=== PATIENT | female | born 1995 | race Caucasian/White ===

== ENCOUNTER 2017-05-28 10:00 | Outpatient (RCR) | payer MEDICAID, SELFPAY ==
--- NOTE | 2017-06-02 15:13 | COCO.CNN ---
Primary Reason for Visit Housing (Looking for housing for her and her baby due in June) Referral to Care Coordination Referral to Care Coordination: Yes Type: Mental Health ([facility]) Referral to Services: Yes Where and Who: Edward Gonzales - JFI Program at [facility] [employer] - Referral From Referral From: Kenna (Haylee) Care Plan - Plan of Care Assessment/Background: Hasmukh came in today for support with one of her cousins. She is and due in June. She was referred here by Haylee at [facility], where she went for help with daycare assistance. She does not want to discuss the father of the baby, as he is not in the picture. 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 She was working at [employer] and was let go in what sounds like an unsettling situation. She has been out of work since January and living off of her savings. She is living with her mom on the [facility]. It is a small living space and her mom's boyfriend and his son will soon be moving in and there will not be enough room for everyone. Right now Hasmukh has [facility], WIC,and [employer]. She has a dog that she considers a therapy dog. Hasmukh went on to tell me that she had a therapist in the past at [facility]. She is not currently taking any medication for mental health, as she did not want to during . She would like to get reconnected but is concerned about a past due bill. She also mentions a history of migraines. Hasmukh would like to find a place of her own and she does want to find a job, but is finding it difficult with her due date less than 2 months away, and possibly sooner. We talked about the JFI program, which she was willing to be referred for. At this point she is eligible for Reach Up because she isn't close enough to her due date and she isn't able to or willing to provide the information on the father of the baby. We also talked about getting her reconnected with mental health. Plan of Care: Follow up appointment with me 05/28/17. [facility] Self Management Plan Complete?: Yes Self Management Goals: Hasmukh is willing to meet with Edward to go over the JFI program. She will also follow through with Mental Health if we can assure her that her overdue bill will not prevent her from getting the care she needs. Action Plan/Progress: I will send the referral for [employer] and I will talk to Human Services to see if we can get her an appointment.
--- NOTE | 2017-06-02 15:42 | PDOC.CNN_ITS ---
Primary Reason for Visit Housing (Looking for housing for her and her baby due in June) Referral to Care Coordination Referral to Care Coordination: Yes Type: Mental Health ([facility]) Referral to Services: Yes Where and Who: Edward Gonzales - JFI Program at [employer] - Referral From Referral From: Kenna (Haylee) Care Plan - Plan of Care Assessment/Background: Hasmukh came in today for support with one of her cousins. She is and due in June. She was referred here by Haylee at [facility], where she went for help with daycare assistance. She does not want to discuss the father of the baby, as he is not in the picture. 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 She was working at [employer] and was let go in what sounds like an unsettling situation. She has been out of work since January and living off of her savings. She is living with her mom on the [facility]. It is a small living space and her mom' s boyfriend and his son will soon be moving in and there will not be enough room for everyone. Right now Hasmukh has [facility], WIC, and 3 [employer]. She has a dog that she considers a therapy dog. Hasmukh went on to tell me that she had a therapist in the past at [facility]. She is not currently taking any medication for mental health, as she did not want to during . She would like to get reconnected but is concerned about a past due bill. She also mentions a history of migraines. Hasmukh would like to find a place of her own and she does want to find a job, but is finding it difficult with her due date less than 2 months away, and possibly sooner. We talked about the JFI program, which she was willing to be referred for. At this point she is eligible for Reach Up because she isn't close enough to her due date and she isn't able to or willing to provide the information on the father of the baby. We also talked about getting her reconnected with mental health. Plan of Care: Follow up appointment with me 05/28/17. [facility] Self Management Plan Complete?: Yes Self Management Goals: Hasmukh is willing to meet with Edward to go over the JFI program. She will also follow through with Mental Health if we can assure her that her overdue bill will not prevent her from getting the care she needs. Action Plan/Progress: I will send the referral for [employer] and I will talk to Human Services to see if we can get her an appointment.
--- NOTE | 2017-06-02 15:59 | PDOC.CNN_ITS ---
Primary Reason for Visit Housing (Follow up on applications, JFI, Mental Health) Referral to Care Coordination Referral to Care Coordination: No Referral to Services: Yes Where and Who: Left a message for [facility] to see if there are any programs to help Hasmukh. - Referral From Referral From: Self Care Plan - Plan of Care Assessment/Background: Hasmukh came back in today to follow up with me. She completed 3 housing applications but did not have her social security card and they are needed for the processing of these applications. We went online and printed the form for her to fill out and bring to the social security office if she can't find it at home. She agreed to let me call Youth [facility] to see if they have any programs. I had to leave a message. I have the referral to send to Edward. I had waited to send it until Edward was able to confirm the JFI program is still accepting applicants. I sent that along to her today. While Hasmukh was here we did an Eco Map so I could see who her supports are. She identified that she was more social when she was younger and as she has gotten older she finds she keeps more to herself. She continues to want to find her own place. She is currently living off savings and will soon have her tax refund , which she hopes to use to move in somewhere. Plan of Care: I will call Hasmukh next week to follow up. [facility] Self Management Plan Complete?: Yes At this Visit: [employer] Self Management Goals: Hasmukh will try to obtain her social security card so we can submit her housing applications. She will follow up with Mental Health once she hears from me. We will follow up next week. Action Plan/Progress: I called [facility] and spoke with Arlen. She gave me her number, I texted it to Hasmukh, Hasmukh called her and she is scheduled for an intake on 06/09/17 with Ruthy Walter. Arlen said she needs to sign a release so they can get her records. I texted her to let her know. I will hold her housing applications here and she will follow up with me when she has her social security cards. I will also follow up with her when I hear from youth services.
== END 2017-11-27 10:00 ==
LOC: COCO 10:00
PROVIDERS: PCP Nurse Practitioner Family; Visit Provider Nurse Practitioner Family
DX: R69 Illness, unspecified (principal)

== ENCOUNTER 2018-01-03 00:52 | Emergency (ER) | payer MEDICAID, SELFPAY ==
[2018-01-03 00:57] VITALS: BP 135/89; PULSE 98; RESP 18; TEMP 36.9; O2SAT 95
[2018-01-03 01:35] LABS: Bilirubin Negative (Negative); Blood Trace-intact (Negative); Clarity Clear; Glucose Negative (Negative); Ketones Negative (Negative); Leukocyte Esterase Negative (Negative); Nitrite Negative (Negative); Urobilinogen 0.2 EU/dL (Up TO 0.2)
[2018-01-03 01:47] LABS: Bacteria Negative HPF (Negative); C & S Indicated? No; Casts Negative LPF (Negative); Crystals Negative HPF (Negative); Epithelial Cells Few HPF (Negative); Mucus Negative (Negative); RBC Negative (0-2); WBC 0-2 HPF (0-5)
[2018-01-03 01:55] LABS: Abs Immature Grans 0.01 k/cumm (0.0-0.09); Absolute Basophil Count 0.02 k/cumm (0.0-0.2); Absolute Eosinophil Count 0.13 k/cumm (0.0-0.7); Absolute Lymphocyte Count 1.75 k/cumm (1.2-3.4); Absolute Monocyte Count 0.59 k/cumm (0.11-0.7); Absolute Neutrophil Count 5.02 k/cumm (1.2-6.7); Basophils % 0.3; Eosinophils % 1.7; HCT 41.3 % (36.0-46.0); HGB 13.9 g/dL (12.0-15.5); Immature Grans % 0.1; Lymphocytes % 23.3; Mean Corp. HGB Concentration 33.7 g/dL (32.0-36.0); Mean Corpuscular Volume 86.2 fL (80-95); Mean Platelet Volume 9.3 fL (8.0-11.0); Monocytes % 7.8; Neutrophils % 66.8; Platelet Count 336 x1000/uL (130-400); RBC 4.79 m/cumm (4.00-5.20); RBC Distribution Width 13.2 % (11.7-14.6); White Blood Cell Count 7.52 k/cumm (4.4-10.8)
--- NOTE | 2018-01-03 01:56 | W.ED.GENAD ---
Discharge Plan Disposition Patient Disposition: HOME Condition: Stable Discharge Details Chief Complaint: RashLesion Clinical Impression: Vasculitis, Purpura Primary Care Provider: Jeniffer Angulo ED Provider: Daniel Marie Home Meds and New Rx's Prescriptions: New prednisone 50 MG tablet 50 mg PO DAILY Qty: 5 RF: 0 No Action acetaminophen [Tylenol] 325 MG tablet 650 mg PO PRN RF: 0 ibuprofen 600 MG tablet 600 mg PO Q6H PRN PRN (Reason: Abdominal Pain) Qty: 45 RF: 1 Discharge Instructions Instructions: Purpura (ED) Additional Instructions: Please take the steroid as directed. Please follow-up with your primary care provider as soon as possible. If you notice any spreading or worsening of your rash, please return immediately. If you notice any worsening of your symptoms, or any new symptoms such as vomiting, diarrhea, fever, chills, shortness of breath, chest pain, numbness, weakness, or fainting , please return immediately to the emergency department for reevaluation. Please follow up with your primary care provider as soon as possible for reassessment and reevaluation. As always, it was a pleasure participating in your medical care today. Referrals: Jeniffer Angulo [Primary Care Provider] - Medical Decision Making This is a pleasant 22-year-old female who presents for evaluation of rash on her lower extremities. She did have upper respiratory symptoms, and was diagnosed with clinical pneumonia and started on azithromycin 5 days ago. She had the rash prior to starting antibiotics. The rash was stable until tonight when it spread from her lower ankles up to her proximal thighs. Physical exam demonstrates palpable purpura that are roughly 5 mm, small, non-itchy, and nonblanching. No lesions in the mouth or hand. No fever, no significant tachycardia or hypotension. No evidence of systemic sepsis. The patient looks extremely clinically well, she shows no signs of confusion, fever, or instability. Clinically she does not show the mental or systemic signs or symptoms clinically correlate to have 2 thrombotic thrombocytopenic purpura. No mental status changes. She has no bloody diarrhea, and no hematuria. She denies any recent ingestion of raw or uncooked meat. She denies any recent tick bites. I feel her symptoms are most likely secondary to a mild vasculitis potentially secondary to her upper respiratory infection that she had may have been viral in origin or strep. We will check for any significant proteinuria, severe microangiopathic hemolytic anemia, strep throat, and thrombocytopenia. I do feel that the patient would benefit from steroids for the vasculitis component. 2:49 AM Laboratory workup has returned normal, no evidence of thrombocytopenia, gross hematuria, RBC or WBC casts., urinary tract infection, elevated white count, electrolyte abnormalities or renal dysfunction. Strep was negative. Patient does have mild blood detected in urine, however with the remainder of her workup being benign, demonstrating normal vital signs, and no other significant lab abnormalities I do feel that this is most likely benign secondary to a mild vasculitis. We will give the patient prednisone here and give her 5 days of prednisone for home use. We recommended close follow-up with her primary care provider which she already has scheduled, we discussed all red flags for which to return. 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 I have extensively reviewed the treatment plan and discharge instructions with the patient. I have addressed all patient concerns at this time. The patient was made aware of what symptoms to monitor for that would warrant a return to the emergency department. Discussed the plan with the patient, they demonstrate verbal understanding and agreement with our assessment and plan at this time. HPI General Date/Time Provider Initiated Documentation: 01/03/18 01:17. HPI Narrative: This is a pleasant 22-year-old female with no significant past medical history who presents today for evaluation of rash. Patient states that 5 days ago she had a mild sore throat, and cough. She had associated small red spots near her ankles and minimal swelling around her ankles at this time. The next day she was seen by her PCP, was diagnosed with clinical pneumonia, started on azithromycin, and has had notable improvement of her respiratory symptoms however tonight she noted that her rash spread from her ankles up her thighs. The rash is not itchy. She has biopsy scheduled by her primary care provider in 48 hours. She denies any spreading of the rash to her upper extremities her chest torso back or buttock. She denies any lesions in her mouth. She does admit to her urine being slightly darker than normal, but denies any dysuria or hematuria. She denies any vomiting, diarrhea or bloody diarrhea. She denies any history of HIV or immunocompromising medications. She denies any other modifying factors. She denies any previous allergies to antibiotic medications. She does have allergies to some other medications but has never had reactions like this or rash before. She denies any recent tick bites, or any other sick contacts. Patient denies any recent surgeries. She denies any pertinent family history. Related Data Home Medications Medication Instructions Recorded Confirmed acetaminophen [Tylenol] 650 mg PO PRN 06/24/17 01/03/18 ibuprofen 600 mg PO Q6H PRN PRN #45 tablet 06/30/17 01/03/18 prednisone 50 mg PO DAILY #5 tab 01/03/18 Previous Rx's Medication Instructions Recorded ibuprofen 600 mg PO Q6H PRN PRN #45 tablet 06/30/17 prednisone 50 mg PO DAILY #5 tab 01/03/18 Allergies Allergy/AdvReac Type Severity Reaction Status Date / Time trimethobenzamide Allergy Severe dystonic Unverified 01/03/18 01:07 reaction codeine Allergy Unknown Can't Unverified 01/03/18 01:07 breath metoclopramide [From Reglan] AdvReac Severe Other (See Unverified 01/03/18 01:07 Comment) promethazine [From Phenergan] AdvReac Severe Agitation Unverified 01/03/18 01:07 General Stated Complaint: RashLesion BHUPENDRA: 4 Review of Systems Review of Systems All systems reviewed & are unremarkable except as noted in HPI and below PFSH Family History Mother No problems noted. Father No problems noted. Medical History BV (bacterial vaginosis) Severe pre-eclampsia Severe pre-eclampsia affecting childbirth Social History Smoking/Tobacco Use Status: Former Tobacco Use Surgical History repair of right wrist injury Exam Narrative Exam Narrative: 1.Const: Well-nourished, Well-developed, appearing stated age 2.Eyes: PERRL, no conjunctival injection, and symmetrical lids. 3.ENT: Atraumatic external nose and ears. Moist MM. Neck: Symmetric, trachea midline, No thyromegaly. No evidence of lesions in the mouth. 4.CVS: +S1/S2, no cardiac murmur. No murmurs or gallops. Peripheral pulses 2+ and equal in all extremities. Brisk capillary refill in all extremities. 5.RESP: Unlabored respiratory effort. Clear to auscultation bilaterally. No wheezes rales or rhonchi 6.GI: Soft, Nontender/Nondistended, No hepatosplenomegaly. No guarding or rebound. No tenderness in the right lower quadrant or left lower quadrant. No significant CVA tenderness. 7.MSK: Normocephalic/Atraumatic, Extremities w/o deformity or ttp No cyanosis or clubbing, Normal movement of all extremities 8.Skin: Warm, Dry. No evidence of Janeway lesions or Osler nodes. Patient demonstrates normal skin except for on her legs bilaterally. She has minimal trace pitting edema of her lower extremities bilaterally. She demonstrates a small palpable nonblanching purpura roughly 5 cm in diameter, numerous from her ankles to her proximal thighs. No desquamation, no evidence of sloughing. Negative Nikolsky sign. No signs of bleeding. No vesicles. 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 Sensation grossly intact, no focal neurologic deficits. 10.Psych: (AAO) x3. Appropriate mood and affect Course Vital Signs Temperature 36.9 C 01/03/18 00:57 Pulse 98 H 01/03/18 00:57 Respiratory Rate 18 01/03/18 00:57 Blood Pressure 135/89 01/03/18 00:57 Pulse Oximetry 95 01/03/18 00:57 Temperature 36.9 C 01/03/18 00:57 Temperature Source Temporal Artery Scan 01/03/18 00:57 Pulse 98 H 01/03/18 00:57 Respiratory Rate 18 18 00:57 Respiratory Effort 01/03/18 00:57 Blood Pressure 135/89 01/03/18 00:57 Pulse Oximetry 95 01/03/18 00:57 Oxygen Delivery Method Room Air 01/03/18 00:57 Oxygen Flow Rate 0 01/03/18 00:57 Pain Level 0 01/03/18 00:57 Lab/Test Results Lab/Test Results: 01/03/18 01:19 Tonsil - Not Specified Streptococcus Screen (CHRISTINE) - Pending Laboratory Tests Range/Units 01/03/18 01:19 Urine Color (Yellow) Yellow Urine Clarity Clear Urine pH (5-8) 6.0 Ur Specific [place] (1.005-1.025) 1.020 Urine Protein (Negative) mg/dL Negative Urine Ketones (Negative) mg/dL Negative Urine Blood (Negative) Trace-intact H Urine Nitrite (Negative) Negative Urine Bilirubin (Negative) Negative Urine Urobilinogen (Up TO 0.2) EU/dL 0.2 Ur Leukocyte Esterase (Negative) Negative Urine RBC (0-2) Negative Urine WBC (0-5) HPF 0-2 Ur Epithelial Cells (Negative) HPF Few Urine Crystals (Negative) HPF Negative Urine Bacteria (Negative) HPF Negative Urine Casts (Negative) LPF Negative Urine Mucus (Negative) Negative Ur Culture Indicated? No Urine Glucose (Negative) mg/dL Negative POC- Test(urine) Negative POC Strep Test-JACINTO(Rapid) Start: 01/03/18 01:17 Freq: .Rapid Strep Test Status: Active Protocol: Document 01/03/18 01:32 TB (Rec: 01/03/18 01:32 TB ER10) Strep test-JACINTO(Rapid)-POC POC-Strep test-JACINTO (Rapid) Negative POC-Strep test-JACINTO (Rapid) Negative
[2018-01-03] MEDS: Normal Saline 1,000 ML 1000 ML IV (02:09)
[2018-01-03 02:12] LABS: ALT 29 U/L (12-78); AST 18 U/L (15-37); Albumin 3.8 g/dL (3.4-5.0); Alkaline Phosphatase 82 U/L (46-116); Anion Gap 10.1 mmol/L (3-11); BUN 20 mg/dL (7-18); Bilirubin, Total 0.4 mg/dL (0.2-1.0); CO2 27.9 mmol/L (21.0-32.0); CREATININE 0.74 mg/dL (0.55-1.02); Calcium 8.6 mg/dL (8.5-10.1); Chloride 101 mmol/L (98-107); Glucose 101 mg/dL (70-100); Potassium 3.7 mmol/L (3.5-5.1); Sodium 139 mmol/L (136-145); Total Protein 7.7 g/dL (6.4-8.2)
[2018-01-03] MEDS: predniSONE 20 MG TAB 40 MG PO (03:00)
== END 2018-01-03 03:31 | disposition home or self-care (01) ==
PROVIDERS: Emergency Provider Student in an Organized Health Care Education/Training Program; PCP Nurse Practitioner Family
DX: D69.0 Allergic purpura (principal)
CPT/HCPCS: 36415; 80053; 81025; 87880; 96360; 99284; 81003; 81015; 85025; 87081; J7512

== ENCOUNTER 2018-01-05 13:32 | Outpatient (REF) | payer MEDICAID, SELFPAY ==
[2018-01-05 21:46] LABS: Abs Immature Grans 0.02 k/cumm (0.0-0.09); Absolute Basophil Count 0.02 k/cumm (0.0-0.2); Absolute Eosinophil Count 0.03 k/cumm (0.0-0.7); Absolute Lymphocyte Count 2.51 k/cumm (1.2-3.4); Absolute Neutrophil Count 4.68 k/cumm (1.2-6.7); Basophils % 0.3; Eosinophils % 0.4; HCT 39.7 % (36.0-46.0); HGB 13.1 g/dL (12.0-15.5); Immature Grans % 0.3; Lymphocytes % 32.3; Mean Corpuscular Hemoglobin 28.9 pg (27.0-33.0); Mean Corpuscular Volume 87.6 fL (80-95); Mean Platelet Volume 10.2 fL (8.0-11.0); Monocytes % 6.4; Neutrophils % 60.3; Platelet Count 336 x1000/uL (130-400); RBC 4.53 m/cumm (4.00-5.20); RBC Distribution Width 13.7 % (11.7-14.6); White Blood Cell Count 7.76 k/cumm (4.4-10.8)
[2018-01-05 21:54] LABS: ALT 25 U/L (12-78); AST 14 U/L (15-37); Albumin 3.6 g/dL (3.4-5.0); Alkaline Phosphatase 71 U/L (46-116); Anion Gap 7.8 mmol/L (3-11); BUN 14 mg/dL (7-18); Bilirubin, Total 0.5 mg/dL (0.2-1.0); C-Reactive Protein 0.15 mg/dL (0.0-0.3); CO2 28.2 mmol/L (21.0-32.0); CREATININE 0.71 mg/dL (0.55-1.02); Chloride 104 mmol/L (98-107); Glucose 80 mg/dL (70-100); Potassium 4.1 mmol/L (3.5-5.1); Sodium 140 mmol/L (136-145); Total Protein 6.9 g/dL (6.4-8.2)
[2018-01-05 22:23] LABS: ESR 15 MM/HR (0-20)
[2018-01-07 11:39] LABS: Hepatitis A Antibody IgM Negative (NEGAT); Hepatitis B Core Antibody Negative (NEGAT); Hepatitis B surface Ag Negative (NEGAT); Hepatitis C Ab w Rflx HCV PCR Negative (NEGAT)
[2018-01-07 12:39] LABS: ANA Interpretation Negative (NEGAT)
[2018-01-08 11:35] LABS: c-ANCA Negative (Negative); p-ANCA Negative (Negative)
== END 2018-01-05 13:52 ==
LOC: NCHCN 13:32
PROVIDERS: PCP Nurse Practitioner Family; Visit Provider Nurse Practitioner Family
DX: R05 Cough (principal); R21 Rash and other nonspecific skin eruption; Z11.59 Encounter for screening for other viral diseases; Z01.84 Encounter for antibody response examination
CPT/HCPCS: 80053; 85652; 86704; 86709; 86803; 87340; 85025; 86038; 86140; 86255; 87086

== ENCOUNTER 2018-01-06 08:41 | Outpatient (CLI) | payer MEDICAID, SELFPAY ==
--- NOTE | 2018-01-06 08:53 | DI.RAD_ITS ---
SYMPTOMS/DIAGNOSIS: COUGH, R05 CHEST X-RAY, PA AND LATERAL: Comparison is 02/25/09. The heart is normal in size. The lungs are clear. The mediastinal structures and pleura appear intact. IMPRESSION: Normal chest.
== END 2018-01-06 09:01 ==
PROVIDERS: PCP Nurse Practitioner Family; Visit Provider Nurse Practitioner Family
DX: R05 Cough (principal)
CPT/HCPCS: 71046

== ENCOUNTER 2018-01-12 16:14 | Outpatient (REF) | payer MEDICAID, SELFPAY ==
--- NOTE | 2018-01-12 13:30 | SKI_PTH ---
PATIENT: Hasmukh Young LOC: [facility] U#:[id number] AGE/SX: 22/F ROOM: RE01/12/[address]: Jeniffer Angulo : 1995 BED: DIS: 01/12/2018 SPEC #: [id number] RECD: 01/13/18 12:32 STATUS: LORRI REGabino #: [id number] WILMER: 01/12/18 13:[address]: Jeniffer Angulo DEPT: Surgical Specimen RECD BY: Nataliia Gonzalez Tissues: 1 - SKIN BIOPSY(SHAVE/PUNCH) 2 - SKIN BIOPSY(SHAVE/PUNCH) Procedures: SKIN LEVEL 4 Comments: [id number]
== END 2018-01-12 16:34 ==
LOC: NCHCN 16:14
PROVIDERS: PCP Nurse Practitioner Family; Visit Provider Nurse Practitioner Family
DX: L95.8 Other vasculitis limited to the skin (principal)
CPT/HCPCS: 88305

== ENCOUNTER 2018-01-19 14:26 | Outpatient (REF) | payer MEDICAID, SELFPAY ==
[2018-01-20 14:12] LABS: Chlamydia Result Negative; GC Result Negative; Specimen Description CERVIX
== END 2018-01-19 14:46 ==
LOC: LBN 14:26
PROVIDERS: PCP Nurse Practitioner Family; Visit Provider Nurse Practitioner Family
DX: Z11.3 Encounter for screening for infections with a predominantly sexual mode of transmission (principal)
CPT/HCPCS: 87491; 87591

== ENCOUNTER 2018-04-15 11:33 | Outpatient (CLI) | payer MEDICAID, SELFPAY ==
[2018-04-15 12:12] LABS: Absolute Basophil Count 0.02 k/cumm (0.0-0.2); Absolute Lymphocyte Count 1.36 k/cumm (1.2-3.4); Absolute Monocyte Count 0.44 k/cumm (0.11-0.7); Absolute Neutrophil Count 5.09 k/cumm (1.2-6.7); Basophils % 0.3; Eosinophils % 1.4; HCT 38.1 % (36.0-46.0); HGB 13.1 g/dL (12.0-15.5); Lymphocytes % 19.4; Mean Corp. HGB Concentration 34.4 g/dL (32.0-36.0); Mean Corpuscular Hemoglobin 29.2 pg (27.0-33.0); Mean Platelet Volume 9.5 fL (8.0-11.0); Monocytes % 6.3; Neutrophils % 72.6; Platelet Count 305 x1000/uL (130-400); RBC 4.48 m/cumm (4.00-5.20); White Blood Cell Count 7.01 k/cumm (4.4-10.8)
[2018-04-16 10:52] LABS: Syphilis Serology (RPR) Negative (Negative); Varicella IgG Antibody Positive
[2018-04-16 11:24] LABS: Rubella IgG Ab (UVM) Positive
[2018-04-16 11:57] LABS: Hepatitis B Surface Ag Negative (NEGAT)
[2018-04-16 12:00] LABS: HIV-1/2 Ag & Ab Screen Negative (NEGAT); Hepatitis C Ab w Rflx HCV PCR Negative (NEGAT)
== END 2018-04-15 11:53 ==
PROVIDERS: PCP Nurse Practitioner Family; Visit Provider Nurse Practitioner
DX: Z34.91 Encounter for supervision of normal pregnancy, unspecified, first trimester (principal); Z11.59 Encounter for screening for other viral diseases; Z01.84 Encounter for antibody response examination; Z11.4 Encounter for screening for human immunodeficiency virus [HIV]
CPT/HCPCS: 36415; 80055; 86787; 86803; 86850; 86900; 86901; 87340; 87389; 86592; 86762

== ENCOUNTER 2018-04-15 13:09 | Outpatient (REF) | payer MEDICAID, SELFPAY ==
--- NOTE | 2018-04-15 11:00 | PAPFT_PTH ---
PATIENT: Hasmukh Young LOC: [facility] U#:[id number] AGE/SX: 22/F ROOM: RE04/15/[address]: Ca Zayas CNM : 1995 BED: DIS: 04/15/2018 SPEC #: [id number] RECD: 04/15/18 18:14 STATUS: LORRI REQ #: [id number] WILMER: 04/15/18 11:[address]: Ca Zayas DEPT: [facility] Cytology RECD BY: Nataliia Gonzalez ENTERED: 04/15/18 18:15 SP TYPE: PAPFT OTHR DR: Jeniffer Angulo Tissues: 1 - CX/ENDOCX FOR PAP SMEARS Procedures: PAP THIN PREP/UVM Screening Comments: [id number] (CHLAMYDIA/GC)
[2018-04-15 13:31] LABS: *AMPHETAMINES SCREEN URINE Negative (Negative); *BARBITURATES SCREEN URINE Negative (Negative); *BENZODIAZEPINES SCREEN URINE Negative (Negative); Cannabinoids THC Negative (Negative); Cocaine Screen,Urine Negative (Negative); METHADONE URINE SCREEN Negative (Negative); OPIATES URINE SCREEN Negative (Negative)
[2018-04-15 13:32] LABS: Tricyclic Antidepressants Negative (Negative)
[2018-04-16 12:38] LABS: Chlamydia Result Negative; GC Result Negative; Specimen Description SEE COMMENTS
[2018-04-18 07:09] LABS: Buprenorphine Negative; Norbuprenorphine Negative
== END 2018-04-15 13:29 ==
LOC: LBN 13:09
PROVIDERS: PCP Nurse Practitioner Family; Visit Provider Nurse Practitioner
DX: Z34.91 Encounter for supervision of normal pregnancy, unspecified, first trimester (principal); Z11.3 Encounter for screening for infections with a predominantly sexual mode of transmission; Z12.4 Encounter for screening for malignant neoplasm of cervix
CPT/HCPCS: 80307; 87491; 87591; 88142; 87086

== ENCOUNTER 2018-05-21 18:15 | Emergency (ER) | payer MEDICAID, SELFPAY ==
[2018-05-21 18:19] VITALS: BP 130/76; PULSE 102; TEMP 37.2; O2SAT 97
[2018-05-21] MEDS: Normal Saline 1,000 ML 1000 ML IV (18:25)
--- NOTE | 2018-05-21 18:40 | W.ED.GENAD ---
Discharge Plan Disposition Patient Disposition: HOME Condition: Good Discharge Details Chief Complaint: Nausea/Vomit/Diar Clinical Impression: Nausea & vomiting Primary Care Provider: Jeniffer Angulo ED Provider: Daniel Marie Home Meds and New Rx's Prescriptions: New ondansetron 4 mg film 4 mg PO BID-TID PRN (Reason: nausea and vomiting) Qty: 5 RF: 0 No Action prenat.vits,arturo,rbx-mlkb-dmqnm tablet 1 tab PO DAILY RF: 0 acetaminophen [Tylenol] 325 MG tablet 650 mg PO PRN RF: 0 Discharge Instructions Instructions: Acute Nausea and Vomiting (ED) Additional Instructions: Please do your best to drink 10-12 cups of water per day. Take the Zofran only as needed. If you notice any worsening of your symptoms, or any new symptoms such as vomiting, diarrhea, fever, chills, shortness of breath, chest pain, numbness, weakness, or fainting , please return immediately to the emergency department for reevaluation. Please follow up with your CATEGORY CONSULTANT as soon as possible for reassessment and reevaluation. As always, it was a pleasure participating in your medical care today. Referrals: Jeniffer Angulo [Primary Care Provider] - Medical Decision Making This is a 22-year-old female who is 14 weeks who presents for fever, vomiting, URI-like symptoms. She denies any abdominal pain or discomfort mainly nausea. Her son has similar symptoms. The patient was sent in by her OB doctor for IV fluids and dehydration. Physical exam is very reassuring with no abdominal tenderness, no signs of guarding or rebound. She denies any dysuria, pelvic pain or cramping, or vaginal discharge. We will rehydrate the patient, give pyridoxine, and reassess. With no signs of an acute abdominal process on exam, and signs and symptoms clinically consistent with a viral etiology especially in light that her son had similar symptoms, do not feel that any additional laboratory or imaging is indicated at this time on her current clinical assessment. 7:41 PM The patient was reassessed and after she was given the pyridoxine she immediately threw this up. We then had a long discussion regarding the risks and benefits of teratogen density with Zofran, and after a thorough and long discussion in regards to this we did elect to do a single dose of Zofran. Since the fetus is 13 weeks and not less than 10 weeks which is the highest chance of any teratogenicity, do feel that this is reasonable after understanding the risks and benefits. After administration of this the patient had complete resolution of her nausea and was feeling much better. Patient is able to tolerate p.o. well now without any difficulty whatsoever. She has been able to drink a full cup of water without difficulty. She feels much improved. She continues to have a benign appearing abdomen on exam, with no reproducible tenderness. The patient's full liter has gone and her heart rate has normalized. At this time I feel that the patient be safely discharged home with close follow-up with her obstetrics industrial service technician. We discussed red flags which to return the patient understands. I have extensively reviewed the treatment plan and discharge instructions with the patient. I have addressed all patient concerns at this time. The patient was made aware of what symptoms to monitor for that would warrant a return to the emergency department. Discussed the plan with the patient, they demonstrate verbal understanding and agreement with our assessment and plan at this time. HPI General Date/Time Provider Initiated Documentation: 05/21/18 18:18. HPI Narrative: This is a very pleasant 22-year-old female who is currently 13 weeks , who presents today for evaluations of fever and vomiting. Patient states that her child had symptoms of fever, nausea vomiting and upper respiratory-like infection over the last few days, and starting yesterday she herself began to have a mild fever which is responding well to Tylenol, as well as some mild nausea and subsequent vomiting. She has been having difficulty tolerating p.o. secondary to this. She admits to very mild headache but denies any neck pain, chest pain, shortness of breath, cough. She denies any abdominal pain, any abdominal discomfort, or diarrhea. She denies any previous history of abdominal surgeries. She denies any other associated factors. She did contact her OB, and because she was having a harder time keeping things down is recommended that she come in here for IV fluids. Patient has no other complaints at this time. No other modifying factors. She denies any vaginal discharge, pelvic cramping, dysuria. Related Data Home Medications Medication Instructions Recorded Confirmed acetaminophen [Tylenol] 650 mg PO PRN 06/24/17 05/21/18 1 tab PO DAILY 04/01/18 05/21/18 vitamin,calcium,xmthcosz-vbht-lszxf acid tablet ondansetron 4 mg PO BID-TID PRN #5 each 05/21/18 Previous Rx's Medication Instructions Recorded ondansetron 4 mg PO BID-TID PRN #5 each 05/21/18 Allergies Allergy/AdvReac Type Severity Reaction Status Date / Time trimethobenzamide Allergy Severe dystonic Verified 05/21/18 18:22 reaction codeine Allergy Unknown Can't Verified 05/21/18 18:22 breath metoclopramide [From Reglan] AdvReac Severe Other (See Verified 05/21/18 18:22 Comment) promethazine [From Phenergan] AdvReac Severe Agitation Verified 05/21/18 18:22 General Stated Complaint: Nausea/Vomit/Diar BHUPENDRA: 3 Review of Systems Review of Systems All systems reviewed & are unremarkable except as noted in HPI and below PFSH Medical History Hx of pre-eclampsia in prior , currently (Resolved) (Acute) Anxiety (Acute 12/08/16) Atypical squamous cells of undetermined significance (ASC-US) on cervical Pap smear (Acute 04/28/17) Cervical high risk HPV (human papillomavirus) test positive (Acute 04/28/17) UTI (urinary tract infection) (Resolved) BV (bacterial vaginosis) (Resolved) Severe pre-eclampsia (Resolved) Severe pre-eclampsia affecting childbirth (Resolved) Surgical History repair of right wrist injury Family History Mother Breast cancer Social History Smoking and Tabacco status: Former Tobacco Use alcohol intake: never Female Reproductive History Menstrual control method: condoms (Uses spermacide as well as condoms) History History 3 Para 1 Hx # Term Pregnancies 0 Multiple births 0 Hx # Pregnancies 1 Ectopic pregnancies 0 AB induced 0 Hx Number of Living Children 1 AB spontaneous 1 Exam Narrative Exam Narrative: 1.Const: Well-nourished, Well-developed, appearing stated age 2.Eyes: PERRL, no conjunctival injection, and symmetrical lids. 3.ENT: Atraumatic external nose and ears. dry MM. Neck: Symmetric, trachea midline, No thyromegaly. Patient demonstrates good movement of cervical neck. There is no nuchal rigidity, no nuchal tenderness. Patient is able to flex the neck without any difficulty or significant pain. Negative Kernig's and Brudzinski sign. 4.CVS: +S1/S2, No murmurs or gallops. Peripheral pulses 2+ and equal in all extremities. Brisk capillary refill in all extremities. 5.RESP: Unlabored respiratory effort. Clear to auscultation bilaterally. No wheezes rales or rhonchi 6.GI: Soft, Nontender/Nondistended, No hepatosplenomegaly. No guarding or rebound. No pain at McBurney's point, negative Sanchez sign. No flank or CVA tenderness. No signs of an acute surgical abdomen. 7.MSK: Normocephalic/Atraumatic, Extremities w/o deformity or ttp No cyanosis or clubbing, Normal movement of all extremities 8.Skin: Warm, Dry. No rashes or lesions. 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 Sensation grossly intact, no focal neurologic deficits. 10.Psych: (AAO) x3. Appropriate mood and affect Course Vital Signs Temperature 37.2 C 05/21/18 18:19 Pulse 102 H 05/21/18 18:19 Blood Pressure 130/76 05/21/18 18:19 Pulse Oximetry 97 05/21/18 18:19 Temperature 37.2 C 05/21/18 18:19 Temperature Source Skin 05/21/18 18:19 Pulse 102 H 05/21/18 18:19 Respiratory Effort 05/21/18 18:26 Blood Pressure 130/76 05/21/18 18:19 Pulse Oximetry 97 05/21/18 18:19 Oxygen Delivery Method Room Air 05/21/18 18:19 Oxygen Flow Rate 0 05/21/18 18:19 Lab/Test Results Lab/Test Results: 05/21/18 Unknown Nose Influenza Types A,B Antigen - Pending
--- NOTE | 2018-05-21 18:46 | ED.GENADUL_ITS ---
Discharge Plan Disposition Patient Disposition: HOME Condition: Good Discharge Details Chief Complaint: Nausea/Vomit/Diar Clinical Impression: Nausea & vomiting Primary Care Provider: Jeniffer Angulo ED Provider: Daniel Marie Home Meds and New Rx's Prescriptions: New ondansetron 4 mg film 4 mg PO BID-TID PRN (Reason: nausea and vomiting) Qty: 5 RF: 0 No Action prenat.vits,arturo,wnk-tvpd-bkdkb tablet 1 tab PO DAILY RF: 0 acetaminophen [Tylenol] 325 MG tablet 650 mg PO PRN RF: 0 Discharge Instructions Instructions: Acute Nausea and Vomiting (ED) Additional Instructions: Please do your best to drink 10-12 cups of water per day. Take the Zofran only as needed. If you notice any worsening of your symptoms, or any new symptoms such as vomiting, diarrhea, fever, chills, shortness of breath, chest pain, numbness, weakness, or fainting , please return immediately to the emergency department for reevaluation. Please follow up with your PUBLIC HEALTH SANITARIAN as soon as possible for reassessment and reevaluation. As always, it was a pleasure participating in your medical care today. Referrals: Jeniffer Angulo [Primary Care Provider] - Medical Decision Making This is a 22-year-old female who is 14 weeks who presents for fever, vomiting, URI-like symptoms. She denies any abdominal pain or discomfort mainly nausea. Her son has similar symptoms. The patient was sent in by her OB doctor for IV fluids and dehydration. Physical exam is very reassuring with no abdominal tenderness, no signs of guarding or rebound. She denies any dysuria, pelvic pain or cramping, or vaginal discharge. We will rehydrate the patient, give pyridoxine, and reassess. With no signs of an acute abdominal process on exam, and signs and symptoms clinically consistent with a viral etiology especially in light that her son had similar symptoms, do not feel that any additional laboratory or imaging is indicated at this time on her current clinical assessment. 7:41 PM The patient was reassessed and after she was given the pyridoxine she immediately threw this up. We then had a long discussion regarding the risks and benefits of teratogen density with Zofran, and after a thorough and long discussion in regards to this we did elect to do a single dose of Zofran. Since the fetus is 13 weeks and not less than 10 weeks which is the highest chance of any teratogenicity, do feel that this is reasonable after un derstanding the risks and benefits. After administration of this the patient had complete resolution of her nausea and was feeling much better. Patient is able to tolerate p.o. well now without any difficulty whatsoever. She has been able to drink a full cup of water without difficulty. She feels much improved. She continues to have a benign appearing abdomen on exam, with no reproducible tenderness. The patient's full liter has gone and her heart rate has normalized. At this time I feel that the patient be safely discharged home with close follow-up with her obstetrics parking lot chauffeur. We discussed red flags which to return the patient understands. I have extensively reviewed the treatment plan and discharge instructions with the patient. I have addressed all patient concerns at this time. The patient was made aware of what symptoms to monitor for that would warrant a return to the emergency department. Discussed the plan with the patient, they demonstrate verbal understanding and agreement with our assessment and plan at this time. HPI General Date/Time Provider Initiated Documentation: 05/21/18 18:18 . HPI Narrative: This is a very pleasant 22-year-old female who is currently 13 weeks , who presents today for evaluations of fever and vomiting. Patient states that her child had symptoms of fever, nausea vomiting and upper respiratory-like infection over the last few days, and starting yesterday she herself began to have a mild fever which is responding well to Tylenol, as well as some mild nausea and subsequent vomiting. She has been having difficulty tolerating p.o. secondary to this. She admits to very mild headache but denies any neck pain, chest pain, shortness of breath, cough. She denies any abdominal pain, any abdominal discomfort, or diarrhea. She denies any previous history of abdominal surgeries. She denies any other associated factors. She did contact her OB, and because she was having a harder time keeping things down is recommended that she come in here for IV fluids. Patient has no other complaints at this time. No other modifying factors. She denies any vaginal discharge, pelvic cramping, dysuria. Related Data Home Medications Medication Instructions Recorded Confirmed acetaminophen [Tylenol] 650 mg PO PRN 06/24/17 05/21/18 1 tab PO DAILY 04/01/18 05/21/18 vitamin,calcium,wikndhyq-joje-hjtsf acid tablet ondansetron 4 mg PO BID-TID PRN #5 each 05/21/18 Previous Rx's Medication Instructions Recorded ondansetron 4 mg PO BID-TID PRN #5 each 05/21/18 Allergies Allergy/AdvReac Type Severity Reaction Status Date / Time trimethobenzamide Allergy Severe dystonic Verified 05/21/18 18:22 reaction codeine Allergy Unknown Can't Verified 05/21/18 18:22 breath metoclopramide [From Reglan] AdvReac Severe Other (See Verified 05/21/18 18:22 Comment) promethazine [From Phenergan] AdvReac Severe Agitation Verified 05/21/18 18:22 General Stated Complaint: Nausea/Vomit/Diar BHUPENDRA: 3 Review of Systems Review of Systems All systems reviewed & are unremarkable except as noted in HPI and below PFSH Medical History Hx of pre-eclampsia in prior , currently (Resolved) (Acute) Anxiety (Acute 12/08/16) Atypical squamous cells of undetermined significance (ASC-US) on cervical Pap smear (Acute 04/28/17) Cervical high risk HPV (human papillomavirus) test positive (Acute 04/28/17) UTI (urinary tract infection) (Resolved) BV (bacterial vaginosis) (Resolved) Severe pre-eclampsia (Resolved) Severe pre-eclampsia affecting childbirth (Resolved) Surgical History repair of right wrist injury Family History Mother Breast cancer Social History Smoking and Tabacco status: Former Tobacco Use alcohol intake: never Female Reproductive History Menstrual control method: condoms (Uses spermacide as well as condoms) History History 3 Para 1 Hx # Term Pregnancies 0 Multiple births 0 Hx # Pregnancies 1 Ectopic pregnancies 0 AB induced 0 Hx Number of Living Children 1 AB spontaneous 1 Exam Narrative Exam Narrative: 1.Const: Well-nourished, Well-developed, appearing stated age 2.Eyes: PERRL, no conjunctival injection, and symmetrical lids. 3.ENT: Atraumatic external nose and ears. dry MM. Neck: Symmetric, trachea midline, No thyromegaly. Patient demonstrates good movement of cervical neck. There is no nuchal rigidity, no nuchal tenderness. Patient is able to flex the neck without any difficulty or significant pain. Negative Kernig's and Brudzinski sign. 4.CVS: +S1/S2, No murmurs or gallops. Peripheral pulses 2+ and equal in all extremities. Brisk capillary refill in all extremities. 5.RESP: Unlabored respiratory effort. Clear to auscultation bilaterally. No wheezes rales or rhonchi 6.GI: Soft, Nontender/Nondistended, No hepatosplenomegaly. No guarding or rebound. No pain at McBurney's point, negative Sanchez sign. No flank or CVA tenderness. No signs of an acute surgical abdomen. 7.MSK: Normocephalic/Atraumatic, Extremities w/o deformity or ttp No cyanosis or clubbing, Normal movement of all extremities 8.Skin: Warm, Dry. No rashes or lesions. 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 Sensation grossly intact, no focal neurologic deficits. 10.Psych: (AAO) x3. Appropriate mood and affect Course Vital Signs Temperature 37.2 C 05/21/18 18:19 Pulse 102 H 05/21/18 18:19 Blood Pressure 130/76 05/21/18 18:19 Pulse Oximetry 97 05/21/18 18:19 Temperature 37.2 C 05/21/18 18:19 Temperature Source Skin 05/21/18 18:19 Pulse 102 H 05/21/18 18:19 Respiratory Effort 05/21/18 18:26 Blood Pressure 130/76 05/21/18 18:19 Pulse Oximetry 97 05/21/18 18:19 Oxygen Delivery Method Room Air 05/21/18 18:19 Oxygen Flow Rate 0 05/21/18 18:19 Lab/Test Results Lab/Test Results: 05/21/18 Unknown Nose Influenza Types A,B Antigen - Pending
--- NOTE | 2018-05-21 18:47 | NUR.NOTE ---
Nursing Note: heart rate found with Doppler babies HR is 154.
[2018-05-21] MEDS: Ondansetron 4 MG/2 ML VIAL IVP (19:12)
[2018-05-21] MEDS: Ondansetron O.D.T. 4 MG TABEF PO (19:59)
[2018-05-21 20:00] VITALS: BP 126/70; PULSE 90; RESP 16; TEMP 37.2; O2SAT 97
== END 2018-05-21 22:00 | disposition home or self-care (01) ==
PROVIDERS: Emergency Provider Student in an Organized Health Care Education/Training Program; PCP Nurse Practitioner Family
DX: O21.9 Vomiting of pregnancy, unspecified (principal); R50.9 Fever, unspecified; E86.0 Dehydration; Z33.1 Pregnant state, incidental; Z3A.14 14 weeks gestation of pregnancy; Z87.891 Personal history of nicotine dependence
CPT/HCPCS: 87449; 96361; 96374; 99284

== ENCOUNTER 2018-05-26 13:16 | Outpatient (REF) | payer MEDICAID, SELFPAY | END 2018-05-26 13:36 | LOC: LBN 13:16 | PROVIDERS: PCP Nurse Practitioner Family; Visit Provider Advanced Practice Midwife | DX: N76.0 Acute vaginitis (principal) | CPT/HCPCS: 87480; 87510; 87660 ==

== ENCOUNTER 2018-06-10 12:16 | Outpatient (CLI) | payer MEDICAID, SELFPAY ==
[2018-06-14 12:11] LABS: AFP 20.7 ng/mL; Cigarette smoking status non-smoker; GA used in risk estimate Dates estimate; INHIBIN 236 pg/mL; IVF Pregnancy No; Initial or repeat testing Initial testing; Insulin dependent diabetes No; Maternal Weight 201 lbs; Number of Fetuses 1; Physician Phone Number 802-748-7300; Prev Down(T21)/Trisomy Pregnan No; Prev Pregnancy w/NTD No; RECOMMENDED FOLLOW UP None.; Results Summary Normal risk; hCG, TOTAL 39.1 IU/mL; hCG, TOTAL MoM 1.36 MoM; uE3 0.79 ng/mL; uE3 MoM 1.02 MoM
== END 2018-06-10 12:36 ==
PROVIDERS: PCP Nurse Practitioner Family; Visit Provider Advanced Practice Midwife
DX: Z34.91 Encounter for supervision of normal pregnancy, unspecified, first trimester (principal); Z36.89 Encounter for other specified antenatal screening
CPT/HCPCS: 36415; 81511

== ENCOUNTER 2018-06-10 16:51 | Outpatient (REF) | payer MEDICAID, SELFPAY ==
[2018-06-14 14:36] LABS: Chlamydia Result Negative; GC Result Negative; Specimen Description CERVIX
== END 2018-06-10 17:11 ==
LOC: LBN 16:51
PROVIDERS: PCP Nurse Practitioner Family; Visit Provider Advanced Practice Midwife
DX: O23.592 Infection of other part of genital tract in pregnancy, second trimester (principal); N76.0 Acute vaginitis; Z20.2 Contact with and (suspected) exposure to infections with a predominantly sexual mode of transmission; Z11.3 Encounter for screening for infections with a predominantly sexual mode of transmission
CPT/HCPCS: 87491; 87591; 87480; 87510; 87660

== ENCOUNTER 2018-06-23 01:15 | Outpatient (CLI) | payer MEDICAID, SELFPAY ==
--- NOTE | 2018-06-23 11:32 | DI.US_ITS ---
SYMPTOMS/DIAGNOSIS: 18-WEEK ANATOMY SURVEY, Z34.90 OB ULTRASOUND: Many abnormalities cannot be diagnosed. A normal exam does not exclude a congenital anomaly. Radiology No. [id number] LMP: Exam Date: 06/23/18 [facility] wks days on EDC ([facility]) 11/24/18 Confirmed: HISTORY: PREDICTED GESTATIONAL AGE NUMBER 18 weeks with a range of 17 weeks to 19 weeks. 1 Determined by___1STUS___LMP_X__HISTORY PLACENTA PRESENTATION Grade I Cephalic___ Anterior___Posterior___ Breech____ Right Left Transverse(head right___ Fundal___Low-lying___Previa___ Transverse(head left___ Varying___X___ BIOMETRY AMNIOTIC FLUID BPD: 39 mm 17+5 weeks Normal HC: 147 mm 17+6 weeks AC: 123 mm 18 weeks FL: 25 mm 17+5 weeks AMNIOTIC FLUID INDEX >26 WK CRL: mm weeks Cisterna Magna: mm CI: 78.3 RUQ: LUQ Cerebellum: cm EFW: 211 grams Percentile: 34th RLQ: LLQ Total: cms Composite AGE= 17+6 wks EDC by US: 11/25/18 BIOPHYSICAL PROFILE ANATOMY IDENTIFIED SCORE 0/2 Heart: 4-Chamber_X__Rate:BPM 158 LVOT:____X RVOT:___X Amniotic Fluid(>2cms)____ Stomach:__X Kidneys:___X____ Respirations (>30 secs) Bladder:___X Post. Fossa:___X Body Flex/Extension 3-vessel cord:___X____Ventricles:__X Cord insertion:__X___ Lips:__X__ Extremity Flex/Extension Spinal morphology:__X Nose:__X__ Total Score= Palate:___X____ NS=not seen COMMENTS: The fetus is in variable position during the exam. The placenta is posterior. The biometric measurements correspond to 17 weeks 6 days. No abnormalities are identified. The amniotic fluid appears normal. IMPRESSION: survey is within normal limits.
== END 2018-06-23 01:35 ==
PROVIDERS: PCP Nurse Practitioner Family; Visit Provider Advanced Practice Midwife
DX: Z34.92 Encounter for supervision of normal pregnancy, unspecified, second trimester (principal)
CPT/HCPCS: 76805

== ENCOUNTER 2018-07-08 12:13 | Outpatient (CLI) | payer MEDICAID, SELFPAY ==
[2018-07-08 12:32] LABS: HCT 36.8 % (36.0-46.0); HGB 12.6 g/dL (12.0-15.5); Mean Corp. HGB Concentration 34.2 g/dL (32.0-36.0); Mean Corpuscular Hemoglobin 29.4 pg (27.0-33.0); Mean Corpuscular Volume 85.8 fL (80-95); Mean Platelet Volume 9.5 fL (8.0-11.0); Platelet Count 328 x1000/uL (130-400); RBC 4.29 m/cumm (4.00-5.20); RBC Distribution Width 12.9 % (11.7-14.6); White Blood Cell Count 9.41 k/cumm (4.4-10.8)
[2018-07-08 13:40] LABS: ALT 18 U/L (12-78); AST 13 U/L (15-37); Albumin 2.9 g/dL (3.4-5.0); Alkaline Phosphatase 64 U/L (46-116); Bilirubin, Direct 0.06 mg/dL (0.00-0.20); Bilirubin, Total 0.2 mg/dL (0.2-1.0); Total Protein 6.5 g/dL (6.4-8.2); Uric Acid 2.9 mg/dL (2.6-6.0)
[2018-07-08 13:45] LABS: PROTEIN 19.9 mg/dL
[2018-07-08 13:47] LABS: COMMENT (LAB VIEW ONLY) 109.67 mg/dL; Prot/Crea Ur Ratio 0.18
== END 2018-07-08 12:33 ==
PROVIDERS: PCP Nurse Practitioner Family; Visit Provider Advanced Practice Midwife
DX: Z34.92 Encounter for supervision of normal pregnancy, unspecified, second trimester (principal)
CPT/HCPCS: 36415; 80076; 85027; 82565; 84156; 84550

== ENCOUNTER 2018-07-08 14:04 | Outpatient (REF) | payer MEDICAID, SELFPAY | END 2018-07-08 14:24 | LOC: LBN 14:04 | PROVIDERS: PCP Nurse Practitioner Family; Visit Provider Advanced Practice Midwife | DX: O26.899 Other specified pregnancy related conditions, unspecified trimester (principal); R30.0 Dysuria | CPT/HCPCS: 87086 ==

== ENCOUNTER 2018-07-21 14:10 | Emergency (ER) | payer MEDICAID, SELFPAY ==
[2018-07-21 14:13] VITALS: BP 145/105; PULSE 133; RESP 20; TEMP 36.8
[2018-07-21 14:22] VITALS: BP 137/87; PULSE 121; O2SAT 97
--- NOTE | 2018-07-21 14:29 | ED.GENADUL_ITS ---
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 Clinical Impression: Vaginal bleeding during Primary Care Provider: Jeniffer Angulo ED Provider: Eriberto Stallworth Home Meds and New Rx's Prescriptions: No Action aspirin [Adult Low Dose Aspirin] 81 mg tablet,delayed release (DR/EC) 81 mg PO DAILY RF: 0 prenat.vits,arturo,dsj-cnne-uzhkm tablet 1 tab PO DAILY RF: 0 acetaminophen [Tylenol] 325 MG tablet 650 mg PO PRN RF: 0 Discharge Instructions Additional Instructions: Your insurance verification clerk Sriram Beach requested you leave here and see her up at [facility] If you have severe abdominal pain or severe worsening bleeding return to the emergency department Medical Decision Making 23 yo female at 23 weeks per pt and comes in fiona because she had some vaginal bleeding about an hour ago and felt decreased movements. Denies any abdominal pain or fevers. On bedside u/s she has a live intrauterine with frequent movements of the fetus and fhr of 140. no bleeding here. Spoke with her insurance verification clerk Sriram Beach and she requests the pt be d/c'd and she go straight to her clinic at [facility] which pt states she will do. Sriram did say they will give rhogam if needed in [facility] as they have her blood type Differential Diagnosis miscarriage, early labor, vaginal bleeding HPI General Mode of arrival: ambulatory . Date/Time Provider Initiated Documentation: 07/21/18 14:17 . Limitations to Documentation: no limitations . Information obtained by: patient . History of Present Illness 23 year old F presents to the emergency department with the chief complaint of decreased movements, Patient started experiencing this hour(s) (1) and it has been constant. No relieving factors improve symptom(s), No exacerbating factors reported . Patient did receive the following treatments prior to arrival, none Related Data Home Medications Medication Instructions Recorded Confirmed acetaminophen [Tylenol] 650 mg PO PRN 06/24/17 07/21/18 1 tab PO DAILY 04/01/18 07/21/18 vitamin,calcium,zucrgija-wvbw-maiwb acid tablet aspirin 81 mg tablet,delayed 81 mg PO DAILY 06/10/18 07/21/18 release Allergies Allergy/AdvReac Type Severity Reaction Status Date / Time trimethobenzamide Allergy Severe dystonic Verified 07/08/18 11:38 reaction codeine Allergy Unknown Can't Verified 07/08/18 11:38 breath metoclopramide [From Reglan] AdvReac Severe Other (See Verified 07/08/18 11:38 Comment) promethazine [From Phenergan] AdvReac Severe Agitation Verified 07/08/18 11:38 General Stated Complaint: SPARES SCHEDULER BHUPENDRA: 2 Review of Systems Review of Systems All systems reviewed & are unremarkable except as noted in HPI and below Constitutional Denies chills, Denies fever(s) and Denies weakness Eyes Denies loss of vision ENT Denies change in voice Cardiovascular Denies chest pain and Denies dyspnea Respiratory Denies cough and Denies dyspnea Gastrointestinal Denies abdominal pain, Denies nausea and Denies vomiting Musculoskeletal Denies joint swelling Integumentary/Breasts Denies rash Neurologic Denies loss of vision and Denies weakness [facility] Medical History Hx of pre-eclampsia in prior , currently (Resolved) (Acute) Anxiety (Acute 12/08/16) Atypical squamous cells of undetermined significance (ASC-US) on cervical Pap smear (Acute 04/28/17) Cervical high risk HPV (human papillomavirus) test positive (Acute 04/28/17) UTI (urinary tract infection) (Resolved) BV (bacterial vaginosis) (Resolved) Severe pre-eclampsia (Resolved) Severe pre-eclampsia affecting childbirth (Resolved) Surgical History repair of right wrist injury Family History Mother Breast cancer Social History Smoking/Tobacco Use Status: Former Tobacco Use Alcohol Intake: never Drug use: Never Do you feel safe in your relationship?: Yes Female Reproductive History Menstrual control method: condoms (Uses spermacide as well as condoms) History History 3 Para 1 Hx # Term Pregnancies 0 Multiple births 0 Hx # Pregnancies 1 Ectopic pregnancies 0 AB induced 0 Hx Number of Living Children 1 AB spontaneous 1 Past Pregnancies Del. Date GA/Weeks # Outcome Route Wgt Sex Labor Lgth Anesthesia Location Prov Complic 06/26/17 35 No Successful vaginal 1.984 kg Male Delivery Date: 06/26/17 On 04/15/18 @ 10:43 Ca Ni Preeclampsia and IUGR Exam Const General: no acute distress Orientation: alert HENMT Head: normal to inspection Ears: external ears normal General nose exam: external nose normal Mouth: moist mucous membranes Eyes General: appearance normal, both eyes and all related structures Neck Neck: normal visual inspection Resp Effort & Inspection: normal respiratory effort and able to speak in complete sentences Cardio Rate: regular rate Skin General skin exam: no rashes or lesions noted Neuro General: alert and oriented x3 Extrem General: normal to inspection Psych Mental Status: mental status grossly normal Course Vital Signs Temperature 36.8 C 07/21/18 14:13 Pulse 133 H 07/21/18 14:13 Respiratory Rate 20 07/21/18 14:13 Blood Pressure 145/105 H 07/21/18 14:13 Temperature 36.8 C 07/21/18 14:13 Pulse 121 H 07/21/18 14:22 Respiratory Rate 20 07/21/18 14:13 Respiratory Effort Non-Labored 07/21/18 14:13 Blood Pressure 137/87 07/21/18 14:22 Pulse Oximetry 97 07/21/18 14:22 Pain Level 0 07/21/18 14:19 Lab/Test Results Lab/Test Results: Laboratory Tests Range/Units 07/21/18 14:24 Patient ABO/Rh Cancelled
[2018-07-21 14:43] LABS: HCT 37.4 % (36.0-46.0); HGB 12.9 g/dL (12.0-15.5); Mean Corp. HGB Concentration 34.5 g/dL (32.0-36.0); Mean Corpuscular Hemoglobin 29.5 pg (27.0-33.0); Mean Corpuscular Volume 85.4 fL (80-95); Mean Platelet Volume 9.6 fL (8.0-11.0); Platelet Count 326 x1000/uL (130-400); RBC 4.38 m/cumm (4.00-5.20); White Blood Cell Count 10.68 k/cumm (4.4-10.8)
== END 2018-07-21 14:38 | disposition home or self-care (01) ==
PROVIDERS: Emergency Provider Emergency Medicine; PCP Nurse Practitioner Family
DX: O20.9 Hemorrhage in early pregnancy, unspecified (principal); Z34.92 Encounter for supervision of normal pregnancy, unspecified, second trimester; O20.8 Other hemorrhage in early pregnancy; Z3A.23 23 weeks gestation of pregnancy
CPT/HCPCS: 36415; 76815; 85027; 86900; 86901; 99283; 87086

== ENCOUNTER 2018-07-21 16:44 | Outpatient (REF) | payer MEDICAID, SELFPAY | END 2018-07-21 17:04 | LOC: LBN 16:44 | PROVIDERS: PCP Nurse Practitioner Family; Visit Provider Advanced Practice Midwife | DX: Z34.92 Encounter for supervision of normal pregnancy, unspecified, second trimester (principal) | CPT/HCPCS: 87086 ==

== ENCOUNTER 2018-07-21 16:52 | Outpatient (CLI) | payer MEDICAID, SELFPAY ==
--- NOTE | 2018-07-21 15:30 | DI.US_ITS ---
Predicted Gestational Age: Indication/History: VAGINAL BLEEDING CHECK PLACENTA 22 Wks Range: 21 to 23 Prior US done on: Determined by: X First US LMP History EDC by prior US: 11/24/18 For multiple gestations: Baby PLACENTA: Grade: I Location: Anterior Posterior X PRESENTATION: RT LT LOW LYING X PREVIA Cephalic Trans (Head RT LT ) Varied X Breech BIOMETRY: Anatomy Identified: BPD: mm wks 4 chamber Heart Heart Rate 152 BPM HC: mm wks LVOT Post Fossa AC: mm wks RVOT Ventricles FL: mm wks Stomach Nose Bladder Lips Cisterna Magna: mm CI: Kidneys Palate Cerebellum: mm 3 vessel cord Spine EFW: grms % Cord Insertion NS= not seen Composite Age (US) wks Many abnormalities cannot be diagnosed. A normal exam does not exclude congenital abnormality. EDC by US Amniotic Fluid Index: Oligo Normal Polyhydramnios COMMENTS: RUQ: LUQ: RLQ: LLQ: Total: cm Biophysical Profile: Score 0/2 LEA (>2cm) Respirations (>30 sec) Body flexion/extension Extremity flexion/extension TOTAL SCORE A 22 week fetus is noted in a variable position. The cardiac rate is 152 beats per minute. The placental tip is 1.3 cm. from the cervical os. There is no evidence of a placenta previa.
== END 2018-07-21 17:12 ==
PROVIDERS: PCP Nurse Practitioner Family; Visit Provider Advanced Practice Midwife
DX: Z34.92 Encounter for supervision of normal pregnancy, unspecified, second trimester (principal); O20.8 Other hemorrhage in early pregnancy
CPT/HCPCS: 76815

== ENCOUNTER 2018-07-30 13:24 | Outpatient (CLI) | payer MEDICAID, SELFPAY | END 2018-07-30 13:44 | PROVIDERS: PCP Nurse Practitioner Family; Visit Provider Advanced Practice Midwife | DX: Z34.92 Encounter for supervision of normal pregnancy, unspecified, second trimester (principal); Z13.88 Encounter for screening for disorder due to exposure to contaminants | CPT/HCPCS: 36415; 83655 ==

== ENCOUNTER 2018-08-07 09:07 | Observation (INO) | payer MEDICAID, SELFPAY ==
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
== END 2018-08-07 12:00 | disposition home or self-care (01) ==
PROVIDERS: Admitting Provider Advanced Practice Midwife; PCP Nurse Practitioner Family; Visit Provider Advanced Practice Midwife
DX: Z04.71 Encounter for examination and observation following alleged adult physical abuse (principal); O9A.312 Physical abuse complicating pregnancy, second trimester; Y07.03 Male partner, perpetrator of maltreatment and neglect

== ENCOUNTER 2018-08-31 01:34 | Outpatient (CLI) | payer MEDICAID, SELFPAY ==
--- NOTE | 2018-08-31 08:36 | DI.US_ITS ---
Predicted Gestational Age: Indication/History: F/U PLACENTA LOCATION 27.6 Wks Range: to Prior US done on: Determined by: First US LMP History EDC by prior US: 11/24/18 For multiple gestations: Baby PLACENTA: I-II Location: Anterior Posterior X PRESENTATION: RT LT LOW LYING PREVIA Cephalic X Trans (Head RT LT ) Varied Breech BIOMETRY: Anatomy Identified: BPD: mm wks 4 chamber Heart Heart Rate 152 BPM HC: mm wks LVOT Post Fossa AC: mm wks RVOT Ventricles FL: mm wks Stomach Nose Bladder Lips Cisterna Magna: mm CI: Kidneys Palate Cerebellum: mm 3 vessel cord Spine EFW: grms % Cord Insertion NS= not seen Composite Age (US) wks Many abnormalities cannot be diagnosed. A normal exam does not exclude congenital abnormality. EDC by US Amniotic Fluid Index: Oligo Normal Polyhydramnios COMMENTS: RUQ: LUQ: RLQ: LLQ: Total: cm Biophysical Profile: Score 0/2 LEA (>2cm) Respirations (>30 sec) Body flexion/extension Extremity flexion/extension TOTAL SCORE Limited third trimester OB ultrasound was performed to evaluate placental position in a patient with history of previously noted low lying placenta. On today's examination, the placenta is approximately 5-6 cm. above the internal os, no evidence of placenta previa. Normal quantity of amniotic fluid visually. Fetus is in cephalic presentation.
== END 2018-08-31 01:54 ==
LOC: DI 01:35
PROVIDERS: PCP Nurse Practitioner Family; Visit Provider Advanced Practice Midwife
DX: O43.893 Other placental disorders, third trimester; Z36.2 Encounter for other antenatal screening follow-up
CPT/HCPCS: 76815; 93306

== ENCOUNTER 2018-09-04 03:54 | Outpatient (CLI) | payer MEDICAID, SELFPAY ==
[2018-09-04 10:37] LABS: HCT 32.9 % (36.0-46.0); HGB 11.1 g/dL (12.0-15.5); Mean Corp. HGB Concentration 33.7 g/dL (32.0-36.0); Mean Corpuscular Hemoglobin 29.4 pg (27.0-33.0); Mean Corpuscular Volume 87.3 fL (80-95); Mean Platelet Volume 9.5 fL (8.0-11.0); Platelet Count 330 x1000/uL (130-400); RBC 3.77 m/cumm (4.00-5.20); RBC Distribution Width 12.7 % (11.7-14.6); White Blood Cell Count 8.73 k/cumm (4.4-10.8)
[2018-09-04 11:20] LABS: Glucose,1 Hr (Glucola) 77 mg/dL (80-140)
== END 2018-09-04 04:14 ==
PROVIDERS: PCP Nurse Practitioner Family; Visit Provider Advanced Practice Midwife
DX: Z34.90 Encounter for supervision of normal pregnancy, unspecified, unspecified trimester (principal)
CPT/HCPCS: 36415; 82950; 85027

== ENCOUNTER 2018-10-02 22:39 | Observation (INO) | payer MEDICAID, SELFPAY ==
[2018-10-03 00:14] LABS: Fetal Fibronectin Negative (Negative)
== END 2018-10-03 00:45 | disposition home or self-care (01) ==
PROVIDERS: Admitting Provider Advanced Practice Midwife; PCP Nurse Practitioner Family; Visit Provider Advanced Practice Midwife
DX: O47.03 False labor before 37 completed weeks of gestation, third trimester (principal); Z3A.32 32 weeks gestation of pregnancy
CPT/HCPCS: 82731; 87086; G0378

== ENCOUNTER 2018-10-25 19:30 | Outpatient (REF) | payer MEDICAID, SELFPAY ==
[2018-10-25 12:25] LABS: *AMPHETAMINES SCREEN URINE Negative (Negative); *BARBITURATES SCREEN URINE Negative (Negative); *BENZODIAZEPINES SCREEN URINE Negative (Negative); Cannabinoids THC Negative (Negative); Cocaine Screen,Urine Negative (Negative); METHADONE URINE SCREEN Negative (Negative); OPIATES URINE SCREEN Negative (Negative)
[2018-10-25 13:17] LABS: Tricyclic Antidepressants Negative (Negative)
[2018-11-02 12:05] LABS: Buprenorphine Negative
== END 2018-10-25 19:50 ==
LOC: LBN 19:30
PROVIDERS: PCP Nurse Practitioner Family; Visit Provider Advanced Practice Midwife
DX: Z34.93 Encounter for supervision of normal pregnancy, unspecified, third trimester (principal); Z36.85 Encounter for antenatal screening for Streptococcus B
CPT/HCPCS: 80307; 87081

== ENCOUNTER 2018-10-26 07:53 | Outpatient (CLI) | payer MEDICAID, SELFPAY ==
--- NOTE | 2018-10-26 08:12 | DI.US_ITS ---
SYMPTOM/DIAGNOSIS: GROWTH AND LEA, HISTORY OF IUGR Z34.90 OBSTETRICAL ULTRASOUND: There is a single intrauterine gestation. Estimated sonographic age is 35 weeks 6 days. The fetus is in the cephalic presentation. heart rate is 143 BPM A anatomic evaluation was not performed at this time. Estimated weight is 2765 grams which is the 48th percentile Amniotic fluid index is 11.0 cm, visually amniotic fluid appears within normal limits. The placenta is posterior and to the right. No previa is identified. IMPRESSION: Single living intrauterine gestation. Estimated sonographic age is 35 weeks 6 days. Predicted Gestational Age: Indication/History: 35 +6 Wks Range: 34 +6 to 36 +6 Prior US done on: Determined by: First US LMP History EDC by prior US: 11/24/18 For multiple gestations: Baby PLACENTA: Grade: II Location: Posterior PRESENTATION: RT XX LT LOW LYING PREVIA Cephalic XX Trans (Head RT LT ) Varied Breech BIOMETRY: Anatomy Identified: BPD: 87 mm 35 +1 wks 4 chamber Heart Heart Rate 143 BPM HC: 320 mm 36 +1 wks LVOT Post Fossa AC: 317 mm 35 +5 wks RVOT Ventricles FL: 71 mm 36 +1 wks Stomach Nose Bladder Lips Cisterna Magna: mm CI: 79.3 Kidneys Palate Cerebellum: mm 3 vessel cord Spine EFW: 2765 grms 48 % Cord Insertion NS= not seen Composite Age (US) 35 +6 wks Many abnormalities cannot be diagnosed. A normal exam does not exclude congenital abnormality. EDC by US 11/24/18 Amniotic Fluid Index: Normal COMMENTS: RUQ: 3.0 LUQ: 3.27 RLQ: 3.34 LLQ: 1.43 Total: 11.0 cm Biophysical Profile: Score 0/2 LEA (>2cm) Respirations (>30 sec) Body flexion/extension Extremity flexion/extension TOTAL SCORE
== END 2018-10-26 08:13 ==
PROVIDERS: PCP Nurse Practitioner Family; Visit Provider Advanced Practice Midwife
DX: Z34.93 Encounter for supervision of normal pregnancy, unspecified, third trimester (principal); Z87.59 Personal history of other complications of pregnancy, childbirth and the puerperium
CPT/HCPCS: 76816

== ENCOUNTER 2018-11-01 16:13 | Outpatient (REF) | payer MEDICAID, SELFPAY | END 2018-11-01 16:33 | LOC: LBN 16:13 | PROVIDERS: PCP Nurse Practitioner Family; Visit Provider Advanced Practice Midwife | DX: Z34.93 Encounter for supervision of normal pregnancy, unspecified, third trimester (principal); O23.593 Infection of other part of genital tract in pregnancy, third trimester; N76.0 Acute vaginitis | CPT/HCPCS: 87480; 87510; 87660 ==

== ENCOUNTER 2018-11-06 12:05 | Observation (INO) | payer MEDICAID, SELFPAY ==
[2018-11-06 12:43] LABS: HGB 10.9 g/dL (12.0-15.5); Mean Corpuscular Hemoglobin 27.9 pg (27.0-33.0); Mean Corpuscular Volume 84.4 fL (80-95); Mean Platelet Volume 10.3 fL (8.0-11.0); Platelet Count 318 x1000/uL (130-400); RBC 3.91 m/cumm (4.00-5.20); RBC Distribution Width 12.5 % (11.7-14.6)
[2018-11-06 13:00] LABS: ALT 19 U/L (12-78); AST 16 U/L (15-37); Albumin 2.5 g/dL (3.4-5.0); Alkaline Phosphatase 117 U/L (46-116); Anion Gap 10.6 mmol/L (3-11); BUN 6 mg/dL (7-18); Bilirubin, Total 0.4 mg/dL (0.2-1.0); CO2 21.4 mmol/L (21.0-32.0); CREATININE 0.55 mg/dL (0.55-1.02); Calcium 8.3 mg/dL (8.5-10.1); Chloride 105 mmol/L (98-107); Glucose 84 mg/dL (70-100); Potassium 3.9 mmol/L (3.5-5.1); Sodium 137 mmol/L (136-145); Total Protein 6.6 g/dL (6.4-8.2)
[2018-11-06 13:58] LABS: Abs Immature Grans 0.01 k/cumm (0.0-0.09); Absolute Basophil Count 0.01 k/cumm (0.0-0.2); Absolute Eosinophil Count 0.06 k/cumm (0.0-0.7); Absolute Lymphocyte Count 1.25 k/cumm (1.2-3.4); Absolute Monocyte Count 0.43 k/cumm (0.11-0.7); Absolute Neutrophil Count 6.51 k/cumm (1.2-6.7); Basophils % 0.1; Eosinophils % 0.7; Immature Grans % 0.1; Lymphocytes % 15.1; Monocytes % 5.2; Neutrophils % 78.8
[2018-11-06] MEDS: DEXTROSE 5%-LACTATED RINGERS 1,000 ML 200 ML IV (14:25)
[2018-11-07 08:28] LABS: Uric Acid 4.2 mg/dL (2.6-6.0)
== END 2018-11-06 15:15 | disposition home or self-care (01) ==
PROVIDERS: Admitting Provider Advanced Practice Midwife; PCP Nurse Practitioner Family; Visit Provider Advanced Practice Midwife
DX: O26.893 Other specified pregnancy related conditions, third trimester (principal); R19.7 Diarrhea, unspecified; R11.2 Nausea with vomiting, unspecified; O09.213 Supervision of pregnancy with history of pre-term labor, third trimester; O09.293 Supervision of pregnancy with other poor reproductive or obstetric history, third trimester
CPT/HCPCS: 36415; 80053; 85027; 96360; 96361; 84550; 85007; 85025; G0378

== ENCOUNTER 2018-11-08 10:46 | Outpatient (REF) | payer MEDICAID, SELFPAY ==
[2018-11-08 12:16] LABS: PROTEIN 18.7 mg/dL
[2018-11-08 12:19] LABS: COMMENT (LAB VIEW ONLY) 71.29 mg/dL; Prot/Crea Ur Ratio 0.26
== END 2018-11-08 11:06 ==
LOC: LBN 10:46
PROVIDERS: PCP Nurse Practitioner Family; Visit Provider Advanced Practice Midwife
DX: O09.293 Supervision of pregnancy with other poor reproductive or obstetric history, third trimester (principal)
CPT/HCPCS: 82565; 84156

== ENCOUNTER 2018-11-10 11:46 | Observation (INO) | payer MEDICAID, SELFPAY ==
[2018-11-10 13:05] LABS: ROM Plus Negative
[2018-11-10 14:14] LABS: HCT 33.8 % (36.0-46.0); HGB 11.2 g/dL (12.0-15.5); Mean Corp. HGB Concentration 33.1 g/dL (32.0-36.0); Mean Corpuscular Hemoglobin 27.9 pg (27.0-33.0); Mean Corpuscular Volume 84.3 fL (80-95); Mean Platelet Volume 10.2 fL (8.0-11.0); Platelet Count 342 x1000/uL (130-400); RBC 4.01 m/cumm (4.00-5.20); RBC Distribution Width 12.8 % (11.7-14.6); White Blood Cell Count 9.19 k/cumm (4.4-10.8)
[2018-11-10 14:30] LABS: ALT 18 U/L (12-78); AST 14 U/L (15-37); Albumin 2.8 g/dL (3.4-5.0); Alkaline Phosphatase 128 U/L (46-116); Anion Gap 12.4 mmol/L (3-11); BUN 11 mg/dL (7-18); Bilirubin, Total 0.5 mg/dL (0.2-1.0); CO2 22.6 mmol/L (21.0-32.0); CREATININE 0.64 mg/dL (0.55-1.02); Calcium 8.9 mg/dL (8.5-10.1); Chloride 102 mmol/L (98-107); Glucose 66 mg/dL (70-100); Potassium 4.1 mmol/L (3.5-5.1); Sodium 137 mmol/L (136-145)
== END 2018-11-10 14:35 | disposition home or self-care (01) ==
PROVIDERS: Advanced Practice Midwife; Admitting Provider Advanced Practice Midwife; PCP Nurse Practitioner Family; Visit Provider Advanced Practice Midwife
DX: Z03.71 Encounter for suspected problem with amniotic cavity and membrane ruled out (principal); O26.893 Other specified pregnancy related conditions, third trimester; R03.0 Elevated blood-pressure reading, without diagnosis of hypertension; Z3A.38 38 weeks gestation of pregnancy
CPT/HCPCS: 36415; 80053; 84112; 85027; 84550; G0378

== ENCOUNTER 2018-11-10 21:35 | Observation (INO) | payer MEDICAID, SELFPAY ==
[2018-11-10 22:27] LABS: PROTEIN 118.4 mg/dL
[2018-11-10 22:35] LABS: Prot/Crea Ur Ratio 0.35
[2018-11-11] MEDS: Nalbuphine 10 MG/ML AMP SC (03:36)
[2018-11-11] MEDS: hydrOXYzine PAMOATE 25 MG CAP PO (03:37)
== END 2018-11-11 09:25 | disposition home or self-care (01) ==
PROVIDERS: Admitting Provider Advanced Practice Midwife; PCP Nurse Practitioner Family; Visit Provider Advanced Practice Midwife
DX: O47.1 False labor at or after 37 completed weeks of gestation (principal); O13.3 Gestational [pregnancy-induced] hypertension without significant proteinuria, third trimester; Z3A.38 38 weeks gestation of pregnancy
CPT/HCPCS: 36415; 80053; 84112; 85027; 86900; 86901; 82565; 82570; 84155; 84156; 84550; G0378; J3490

== ENCOUNTER 2018-11-12 10:27 | Outpatient (REF) | payer MEDICAID, SELFPAY ==
[2018-11-12 12:05] LABS: Creatinine,Urine 124.88 mg/dL; PROTEIN 39.8 mg/dL (0.0-11.9)
[2018-11-12 12:08] LABS: Creatinine,24hr Ur 1.62 g/24hr (0.60-1.80); Total Volume 1300 ml
[2018-11-12 12:09] LABS: Total Volume 1300 ml
[2018-11-12 12:10] LABS: TOTAL PROTEIN,URINE TIMED 517.4 mg/24hr (0.0-149.1)
== END 2018-11-12 10:47 ==
LOC: LBN 10:27
PROVIDERS: PCP Nurse Practitioner Family; Visit Provider Advanced Practice Midwife
DX: O09.299 Supervision of pregnancy with other poor reproductive or obstetric history, unspecified trimester (principal)
CPT/HCPCS: 81050; 82570; 84155; 84156

== ENCOUNTER 2018-11-12 13:57 | Inpatient (IN) | payer MEDICAID, SELFPAY ==
[2018-11-12] MEDS: Normal Saline Flush 10 ML SYR IVP (15:10)
[2018-11-12] MEDS: miSOPROStol 25 MCG TAB PO ×2 (15:23→17:41)
[2018-11-13] MEDS: Ibuprofen 600 MG TAB PO ×4 (00:12→20:40)
[2018-11-13 06:54] LABS: HCT 32.5 % (36.0-46.0); HGB 10.6 g/dL (12.0-15.5); Mean Corp. HGB Concentration 32.6 g/dL (32.0-36.0); Mean Corpuscular Hemoglobin 27.7 pg (27.0-33.0); Mean Corpuscular Volume 84.9 fL (80-95); Mean Platelet Volume 10.4 fL (8.0-11.0); Platelet Count 308 x1000/uL (130-400); RBC 3.83 m/cumm (4.00-5.20); RBC Distribution Width 12.8 % (11.7-14.6)
[2018-11-13] MEDS: Acetaminophen 325 MG TAB 650 MG PO ×3 (08:13→20:40)
[2018-11-14] MEDS: Acetaminophen 325 MG TAB 650 MG PO ×2 (02:28→09:48)
[2018-11-14] MEDS: Ibuprofen 600 MG TAB PO ×2 (02:28→09:48)
== END 2018-11-14 13:15 | disposition home or self-care (01) | DRG 807 ==
PROVIDERS: Admitting Provider Advanced Practice Midwife; PCP Nurse Practitioner Family; Visit Provider Advanced Practice Midwife
DX: O14.04 Mild to moderate pre-eclampsia, complicating childbirth (principal); Z37.0 Single live birth; Z3A.38 38 weeks gestation of pregnancy; O69.2XX0 Labor and delivery complicated by other cord entanglement, with compression, not applicable or unspecified; Z67.10 Type A blood, Rh positive
CPT/HCPCS: 36415; 36416; 85027; 86850; 86900; 86901; J3490

== ENCOUNTER 2018-12-21 15:29 | Outpatient (CLI) | payer MEDICAID, SELFPAY ==
[2018-12-21 16:28] LABS: HCG Quant, Pregnancy < 1 mIU/mL (1-3)
== END 2018-12-21 15:49 ==
PROVIDERS: PCP Nurse Practitioner Family; Visit Provider Advanced Practice Midwife
DX: Z34.90 Encounter for supervision of normal pregnancy, unspecified, unspecified trimester (principal)
CPT/HCPCS: 36415; 84702

== ENCOUNTER 2018-12-24 13:42 | Outpatient (CLI) | payer MEDICAID, SELFPAY ==
[2018-12-24 15:40] LABS: HCG Quant, Pregnancy < 1 mIU/mL (1-3)
== END 2018-12-24 14:02 ==
PROVIDERS: PCP Nurse Practitioner Family; Visit Provider Advanced Practice Midwife
DX: Z34.90 Encounter for supervision of normal pregnancy, unspecified, unspecified trimester (principal)
CPT/HCPCS: 36415; 84702

== ENCOUNTER 2019-06-01 08:37 | Emergency (ER) | payer MEDICAID, SELFPAY ==
[2019-06-01 08:41] VITALS: BP 133/96; PULSE 92; TEMP 36.9; O2SAT 100
--- NOTE | 2019-06-01 08:45 | DI.RAD_ITS ---
EXAM: XR CHEST 2V PA LATERAL CLINICAL HISTORY: cough, known flu, r/o pneumonia, ill x 1 week TECHNIQUE: 2D digital imaging was performed. COMPARISON: XR CHEST 2V PA LATERAL from 01/06/2018 FINDINGS: LUNGS: Clear. No pleural abnormality seen. HEART: Normal. PULMONARY VASCULATURE: Normal. MEDIASTINUM: Normal. PLEURAL SPACE: No pleural effusion or pneumothorax. OTHER FINDINGS:Normal. BONE:Normal. IMPRESSIO N: No acute pulmonary findings. DATA REPOSITORY: RADIATION DOSE DELIVERED:
--- NOTE | 2019-06-01 09:04 | W.ED.GENAD ---
Discharge Plan Disposition Patient Disposition: HOME Condition: Stable Discharge Details Chief Complaint: RespSymp Clinical Impression: Influenza Primary Care Provider: Jeniffer Angulo ED Provider: Jeniffer Delacruz Home Meds and New Rx's Prescriptions: New benzonatate [Tessalon Perles] 100 mg capsule 100 mg PO TID PRN (Reason: cough) Qty: 10 RF: 0 albuterol sulfate [Proventil HFA] 90 mcg/actuation HFA aerosol inhaler 2 puff IH Q6H PRN (Reason: shortness of breath or wheezing) Qty: 8.5 RF: 0 No Action acetaminophen [Tylenol] 325 MG tablet 1,000 mg PO PRN RF: 0 ibuprofen 800 mg Tablet 800 mg PO Q8H RF: 0 Discharge Instructions Instructions: Influenza (ED) Additional Instructions: Drink plenty of fluids. Rest activities as tolerated. Motrin or Tylenol for aches and fever if needed. Use inhaler with spacer as discussed. Use cough medication if needed. Consider humidifier by her bedside. Consider increasing vitamin C. Follow-up with primary care doctor if not improving in the next 3 to 5 days as expected. Return for any worsening, concerning or alarming symptoms sooner if needed. Observe for any signs of difficulty breathing or dehydration as discussed. Return if needed sooner Medical Decision Making This is a 23-year-old patient who is quite pleasant presenting to the emergency room for 1 week of influenza symptoms. Patient did test positive for influenza 2 days ago. Patient is concerned with the possibility of pneumonia due to persistence of cough and onset of discomfort across her back. She has multiple family members with influenza and pneumonia currently. Patient does report mild shortness of breath when laying flat. Does report an intermittently productive cough. Patient has been hydrating without difficulty. Patient is in no apparent distress at this time. Patient reports her fevers have improved. Initial review of patient's vital signs reveals no hypoxia and with an oxygen saturation of 100%, heart rate of 92. Afebrile. Patient does report this is a significant improvement compared to her vital signs 2 days ago at which point her O2 sat was 93 and heart rate elevated in her PCP office. Patient is a non-smoker. Will check chest x-ray. Chest x-ray unremarkable for identifiable pneumonia. Vital signs reviewed and stable. Patient is stable and feels comfortable discharge home at this time. Patient does appear well-hydrated. Will recommend conservative treatments in addition to inhaler and spacer. Recommended cough medication for symptomatic relief. Patient agrees with plan of care. Discussed alarming signs and symptoms for which patient should return, also discussed x-ray expected improvement. I do not recommend steroid treatment at this time given patient's clinical presentation. Patient feels comfortable with this plan of care. Recommended follow-up with PCP if not improving the next 3 to 5 days. The patient was stable and requested discharge. Prior to discharge, my usual and customary return precautions were reviewed with the patient - this included follow-up instructions and reasons to return to the Emergency Department if conditions worsens, does not improve as expected, or other new concerns arise. HPI General Date/Time Provider Initiated Documentation: 06/01/19 08:46. HPI Narrative: Is a 23-year-old very pleasant patient presenting to the emergency room for complaints of 1 week of illness. Patient has known influenza, tested positive at their PCP office 2 days ago. Patient is reporting persistent cough and mild pain across her back bilaterally. Patient is concerned as 3 of her family members whom also had influenza do currently have pneumonia. Patient does report occasional shortness of breath, does report symptoms worse when laying flat. Patient reports no persistence of fever. Achiness is beginning to improve. Patient reports minimally and intermittently productive cough occasionally with green sputum in the morning. Patient denies wheezing. Patient denies dizziness or headache. Patient reports she does feel well hydrated at this time. Patient reports urinating normal amounts. Patient denies nausea, vomiting or diarrhea at this time. Denies any other concerns or complaints. Related Data Home Medications Medication Instructions Recorded Confirmed acetaminophen [Tylenol] 1,000 mg PO PRN 06/24/17 06/01/19 albuterol sulfate [Proventil HFA] 2 puff IH Q6H PRN #8.5 gm 06/01/19 benzonatate [Tessalon Perles] 100 mg PO TID PRN #10 cap 06/01/19 ibuprofen 800 mg PO Q8H 06/01/19 06/01/19 Previous Rx's Medication Instructions Recorded albuterol sulfate [Proventil HFA] 2 puff IH Q6H PRN #8.5 gm 06/01/19 benzonatate [Tessalon Perles] 100 mg PO TID PRN #10 cap 06/01/19 Allergies Allergy/AdvReac Type Severity Reaction Status Date / Time trimethobenzamide Allergy Severe dystonic Verified 06/01/19 08:46 reaction codeine Allergy Unknown Can't Verified 06/01/19 08:46 breath metoclopramide [From Reglan] AdvReac Severe Akathesia Verified 06/01/19 08:47 promethazine [From Phenergan] AdvReac Severe Agitation Verified 06/01/19 08:46 General Stated Complaint: RespSymp BHUPENDRA: 3 Review of Systems All systems reviewed & are unremarkable except as noted in HPI and below Constitutional Constitutional: Denies chills (Initially since resolved), Denies fatigue, Denies fever(s) (Initially, since resolved), Denies headache(s) and Reports malaise ENT Ears, Nose, Mouth, and Throat: Denies otalgia, Denies headache(s), Reports nasal congestion, Denies sinus pressure, Denies sore throat and Denies throat swelling Cardiovascular Cardiovascular: Denies dyspnea on exertion Respiratory Respiratory: Reports cough, Reports pain with cough, Denies dyspnea on exertion, Denies stridor and Denies wheezing Gastrointestinal Gastrointestinal: Reports abdominal pain (Patient reports mild cramping which she attributes to her recent ), Denies diarrhea, Denies nausea and Denies vomiting Genitourinary Genitourinary: Denies dysuria Neurologic Neurologic: Denies headache(s) Endocrine Endocrine: Denies fatigue Allergic/Immunologic Allergic/Immunologic: Denies throat swelling and Denies wheezing [facility] Medical History Anxiety (Acute 12/08/16) Atypical squamous cells of undetermined significance (ASC-US) on cervical Pap smear (Acute 04/28/17) BV (bacterial vaginosis) (Resolved) Cervical high risk HPV (human papillomavirus) test positive (Acute 04/28/17) Hx of pre-eclampsia in prior , currently (Resolved) Required induction of labor-magnesium sulfate infusion for IUGR. (Acute) Severe pre-eclampsia (Resolved) Severe pre-eclampsia affecting childbirth (Resolved) UTI (urinary tract infection) (Resolved) Family History (Updated 01/19/18 @ 13:05 by Cecilia Scales NP) Mother Breast cancer Social History Smoking/Tobacco Use Status: Former Tobacco Use Alcohol Intake: never Drug use: Never Substance use type: does not use Current gender identity: female Do you feel safe at home: Yes Do you feel safe in your relationship?: Yes Female Reproductive History Menstrual control method: condoms (Uses spermacide as well as condoms) History History 3 Para 2 Hx # Term Pregnancies 2 Multiple births 0 Hx # Pregnancies 1 Ectopic pregnancies 0 AB induced 0 Hx Number of Living Children 2 AB spontaneous 1 Past Pregnancies Del. Date GA/Weeks # Outcome Route Wgt Sex Labor Lgth Anesthesia Location Prov Compl 06/26/17 35 No Successful vaginal 1.984 kg Male Katherine MANDY Garcia 11/12/18 38 No Successful vaginal 3.175 kg Female 5 hrs 4 min Perri Dutta CNM Delivery Date: 06/26/17 On 10/25/18 @ 09:25 Jes Fong Preeclampsia and IUGR, IOL, treated with Mag SO4. Delivery Date: 11/12/18 On 12/21/18 @ 13:18 Haylee Brennan Induced with cytotec, miso due to gestation HTN; pre-eclampsia. Exam Narrative Exam Narrative: CONST: Patient in no acute distress. Well hydrated. Alert and oriented. HENMT: Head nomocephalic, normal to inspection. Atraumatic. Hearing grossly normal. TMs appear normal bilaterally, mild pharyngeal erythema without exudates or swelling. EYES: General normal appearance. Alignment normal. Eyelids normal. Conjunctiva normal. NECK: Normal visual inspection. FROM. Trachea midline. No Midline tenderness. No cervical lymphadenopathy present CHEST: Normal insepection of the chest. RESP: Normal respiratory effort. Speaking full sentences. No cough. No audible wheezing. No retractions. Breath sounds clear, full and equal bilaterally. No rhonchi, rales or wheezing. CARDIO: No JVD. No murmur, regular rate and rhythm SKIN: Normal. Dry. No rashes. NEURO: Alert and awake. Speech clear. PSYCH: Normal affect. Cooperative. Course Vital Signs Vital signs: Vital Signs Temperature 36.9 C 06/01/19 08:41 Pulse 92 H 06/01/19 08:41 Blood Pressure 133/96 H 06/01/19 08:41 Pulse Oximetry 100 06/01/19 08:41 Temperature 36.9 C 06/01/19 08:41 Temperature Source Temporal Artery Scan 06/01/19 08:41 Pulse 92 H 06/01/19 08:41 Respiratory Effort Non-Labored 06/01/19 08:45 Respiratory Depth Normal 06/01/19 08:45 Blood Pressure 133/96 H 06/01/19 08:41 Blood Pressure Position Sitting 06/01/19 08:41 Pulse Oximetry 100 06/01/19 08:41 Oxygen Delivery Method Room Air 06/01/19 08:41 Oxygen Flow Rate 0 06/01/19 08:41
[2019-06-01] MEDS: Inhaler, Assist Device 1 EACH MC (10:52)
[2019-06-01 10:54] VITALS: BP 129/79; PULSE 81; RESP 16; TEMP 36.7; O2SAT 97
== END 2019-06-01 11:02 | disposition home or self-care (01) ==
PROVIDERS: Emergency Provider Physician Assistant; PCP Nurse Practitioner Family
DX: J10.1 Influenza due to other identified influenza virus with other respiratory manifestations (principal)
CPT/HCPCS: 99283; 71046

== ENCOUNTER 2019-10-25 11:47 | Outpatient (REF) | payer MEDICAID, SELFPAY ==
[2019-10-25 21:12] LABS: HCT 42.9 % (36.0-46.0); HGB 14.5 g/dL (11.2-15.7); MCHC 33.8 % (32.0-36.0); MCV 85.8 fL (80-95); MPV 10.1 fL (8.0-11.0); Platelet Count 395 10^3/uL (130-400); RDW 12.7 % (11.7-14.6); RDW-SD 39.6 fL; WBC 6.85 10^3/uL (4.4-10.8)
[2019-10-25 21:19] LABS: Iron 132 ug/dL (50-170); Total Iron Binding Capacity 307 ug/dL (250-450); Transferrin Sat 43 % (15-50)
[2019-10-25 21:27] LABS: ALT 22 U/L (14-59); AST 17 U/L (15-37); Albumin 3.9 g/dL (3.4-5.0); Alkaline Phosphatase 65 U/L (46-116); BUN 14 mg/dL (7-18); Bilirubin, Total 0.5 mg/dL (0.2-1.0); CREATININE 0.75 mg/dL (0.55-1.02); Calcium 9.5 mg/dL (8.5-10.1); Chloride 102 mmol/L (98-107); FREE T4 0.93 ng/dL (0.76-1.46); Glucose 60 mg/dL (74-106); Potassium 4.5 mmol/L (3.5-5.1); Sodium 140 mmol/L (136-145); TSH 1.75 uIU/mL (0.36-3.74); Total Protein 7.4 g/dL (6.4-8.2)
[2019-10-31 12:47] LABS: IgA 211 mg/dL (85-499); Interpretation (See Note); Tissue Transglutaminase IgA <1.2 U/mL (<4.0)
== END 2019-10-25 12:07 ==
LOC: NCHCN 11:47
PROVIDERS: PCP Nurse Practitioner Family; Visit Provider Internal Medicine
DX: R19.7 Diarrhea, unspecified (principal); R42 Dizziness and giddiness; R53.83 Other fatigue
CPT/HCPCS: 80053; 82784; 83516; 85027; 83540; 83550; 84439; 84443

== ENCOUNTER 2019-12-19 16:08 | Outpatient (REF) | payer MEDICAID, SELFPAY ==
[2019-12-22 00:22] LABS: Patient Race White; SARS-CoV-2 RNA Undetected (Undetected); SARS-CoV-2 Specimen Source Nasal
== END 2019-12-19 16:28 ==
LOC: NCHCN 16:08
PROVIDERS: PCP Nurse Practitioner Family; Visit Provider Nurse Practitioner Family
DX: R05 Cough (principal)
CPT/HCPCS: U0003

== ENCOUNTER 2020-03-02 22:14 | Outpatient (REF) | payer MEDICAID, SELFPAY ==
[2020-03-06 10:07] LABS: COVID-19 RT-PCR Result NEGATIVE (Negative)
== END 2020-03-02 22:34 ==
LOC: NCHCN 22:14
PROVIDERS: PCP Nurse Practitioner Family; Visit Provider Nurse Practitioner Family
DX: Z20.828 Contact with and (suspected) exposure to other viral communicable diseases (principal)
CPT/HCPCS: U0003

== ENCOUNTER 2020-05-23 02:33 | Outpatient (CLI) | payer MEDICAID, SELFPAY ==
[2020-05-23 10:53] LABS: Calculated LDL 97 mg/dL (<100); Cholesterol 180 mg/dL (<200); HDL Cholesterol 75 mg/dL (40-60); TSH (W/Ref FT4) 1.61 uIU/mL (0.36-3.74); Triglyceride 43 mg/dL (<150)
== END 2020-05-23 02:34 | disposition home or self-care (01) ==
LOC: LBO 02:33
PROVIDERS: PCP Nurse Practitioner Family; Visit Provider Obstetrics & Gynecology
DX: R63.5 Abnormal weight gain (principal)
CPT/HCPCS: 36415; 80061; 84443

== ENCOUNTER 2020-07-06 03:51 | Outpatient (CLI) | payer MEDICAID, SELFPAY ==
--- NOTE | 2020-07-06 07:00 | DI.US_ITS ---
EXAM: US PELVIS TRANSVAGINAL CLINICAL HISTORY: Irregular bleeding and right sided pelvic pain,R10.31. TECHNIQUE: Transabdominal and transvaginal pelvic ultrasound was performed using standard protocol. COMPARISON: US US OB 2-3 trimester from 10/26/2018 FINDINGS: KIDNEYS: Kidneys are symmetric in size. No evidence of renal calculi. No evidence of hydronephrosis. No renal mass or cyst identified. UTERUS: Position: Anteverted. Size: 8.6 long by 3.9 AP by 5.3 transverse cm Endometrium: 0.3 cm. Normal for patient's menstrual status. Myometrium: Unremarkable. Cervix: Unremarkable. OVARIES: No evidence of torsion. Right: 3.1 x 1.3 x 1.3 cm Cyst or mass: Small functional cysts are present. Left: 2.7 x 1.6 x 1.7 cm Cyst or mass: None. DOPPLER: Color: Symmetric and uniform flow to both ovaries. No hyperemia. CUL-DE-SAC: Free fluid: None. Other: None. IMPRESSION: 1. Normal sonographic appearance of the kidneys. 2. Normal-appearing uterus with endometrial stripe within normal limits. 3. Unremarkable bilateral ovaries. No evidence of torsion. DATA REPOSITORY:
== END 2020-07-06 04:11 ==
PROVIDERS: PCP Nurse Practitioner Family; Visit Provider Obstetrics & Gynecology
DX: R10.31 Right lower quadrant pain (principal)
CPT/HCPCS: 76830; 76856

== ENCOUNTER 2020-09-27 18:02 | Outpatient (REF) | payer MEDICAID, SELFPAY ==
[2020-09-29 13:51] LABS: Varicella Zoster DNA Result Negative (Negative)
[2020-09-29 14:11] LABS: COVID-19 RT-PCR UVMMC Result Negative (Negative)
== END 2020-09-27 18:03 | disposition home or self-care (01) ==
LOC: LBN 18:02
PROVIDERS: PCP Nurse Practitioner Family; Visit Provider Nurse Practitioner Family
DX: L98.8 Other specified disorders of the skin and subcutaneous tissue (principal); Z20.822 Contact with and (suspected) exposure to COVID-19; Z11.59 Encounter for screening for other viral diseases
CPT/HCPCS: 87798; U0003

== ENCOUNTER 2021-01-27 16:22 | Emergency (ER) | payer MEDICAID, SELFPAY ==
[2021-01-27 16:36] VITALS: BP 151/92; PULSE 95; RESP 18; TEMP 36.8; O2SAT 98
--- NOTE | 2021-01-27 17:05 | W.ED.GENAD ---
Discharge Plan Disposition Patient Disposition: HOME Condition: Good Discharge Details Clinical Impression: Pneumonia Primary Care Provider: Jeniffer Angulo ED Provider: Daniel Marie Home Meds and New Rx's Prescriptions: New doxycycline hyclate 100 mg tablet 100 mg PO BID Qty: 20 RF: 0 benzonatate [Tessalon Perles] 100 mg capsule 100 mg PO TID Qty: 20 RF: 0 Continued cyclobenzaprine 10 mg tablet 10 mg PO HS PRN (Reason: muscle spasm) Qty: 30 RF: 0 loratadine [Allergy Relief (loratadine)] 10 mg tablet 10 mg PO DAILY RF: 0 acetaminophen [Tylenol] 325 MG tablet 1,000 mg PO PRN RF: 0 ibuprofen 800 mg Tablet 800 mg PO Q8H RF: 0 Discharge Instructions Instructions: Pneumonia (ED) Additional Instructions: At this time you have evidence of pneumonia clinically on exam. We have sent prescription for doxycycline and Tessalon Perles cough suppressant to your pharmacy [facility] on file. Please take these as directed. Please use the inhaler Symbicort that we have given you, 1 puff every 12 hours. Please take 2 tablespoons of honey every 4-6 hours for your sore throat and cough. If you notice any worsening of your symptoms, or any new symptoms such as vomiting, diarrhea, fever, chills, shortness of breath, chest pain, numbness, weakness, or fainting , please return immediately to the emergency department for reevaluation. Please follow up with your primary care provider as soon as possible for reassessment and reevaluation. As always, it was a pleasure participating in your medical care today. Referrals: Jeniffer Angulo [Primary Care Provider] - Medical Decision Making 25-year-old female with a past medical history of irritable bowel syndrome, anxiety, who has not been vaccinated against flu or Covid at this time, presents today for evaluation of persistent cough chills congestion runny nose. 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 For the last week she has had a cough, congestion, runny nose, fatigue. She has had 2 negative Covid PCR test, and still continues to feel this way. She denies any hemoptysis. Her cough is productive with green sputum. She denies vomiting or diarrhea. She does admit to some shortness of breath with the coughing in conjunction with fatigue. She denies any pleuritic chest pain in general. No other complaints at this time. No long trips, surgeries or procedures. No history of blood clots. Physical exam demonstrates mild crackles in the bases, no rhonchi or severe wheezes. No calf tenderness. Symptoms inconsistent with PE. Suspect viral upper respiratory infection which has transitioned to a mild clinical pneumonia. I do feel that the patient would benefit from oral antibiotics, Tessalon Perles, and a Symbicort inhaler to cut down on cough and reactivity of her lungs at this time. Patient will be discharged home. With the recent negative Covid testing, no indication for retesting at this time. Discussed red flags which return. Vital signs notably stable otherwise. No evidence of respiratory distress or hypoxemia. I have extensively reviewed the treatment plan and discharge instructions with the patient. I have addressed all patient concerns at this time. The patient was made aware of what symptoms to monitor for that would warrant a return to the emergency department. Discussed the plan with the patient, they demonstrate verbal understanding and agreement with our assessment and plan at this time. The documentation in this chart was dictated using [employer] dictation software. Please excuse any dictation errors. HPI General Date/Time Provider Initiated Documentation: 01/27/21 16:23. HPI Narrative: 25-year-old female with a past medical history of irritable bowel syndrome, anxiety, who has not been vaccinated against flu or Covid at this time, presents today for evaluation of persistent cough chills congestion runny nose. 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 For the last week she has had a cough, congestion, runny nose, fatigue. She has had 2 negative Covid PCR test, and still continues to feel this way. She denies any hemoptysis. Her cough is productive with green sputum. She denies vomiting or diarrhea. She does admit to some shortness of breath with the coughing in conjunction with fatigue. She denies any pleuritic chest pain in general. No other complaints at this time. No long trips, surgeries or procedures. No history of blood clots. Related Data Home Medications Medication Instructions Recorded Confirmed acetaminophen [Tylenol] 1,000 mg PO PRN 06/24/17 01/27/21 ibuprofen 800 mg PO Q8H 06/01/19 01/27/21 cyclobenzaprine 10 mg tablet 10 mg PO HS PRN #30 tab 06/22/20 01/27/21 loratadine 10 mg tablet 10 mg PO DAILY 11/28/20 01/27/21 benzonatate [Tessalon Perles] 100 mg PO TID #20 cap 01/27/21 doxycycline hyclate 100 mg PO BID #20 tab 01/27/21 Previous Rx's Medication Instructions Recorded cyclobenzaprine 10 mg tablet 10 mg PO HS PRN #30 tab 06/22/20 benzonatate [Tessalon Perles] 100 mg PO TID #20 cap 01/27/21 doxycycline hyclate 100 mg PO BID #20 tab 01/27/21 Allergies Allergy/AdvReac Type Severity Reaction Status Date / Time trimethobenzamide Allergy Severe dystonic Verified 01/27/21 16:40 reaction codeine Allergy Unknown Can't Verified 01/27/21 16:40 breath metoclopramide [From Reglan] AdvReac Severe Akathesia Verified 01/27/21 16:40 promethazine [From Phenergan] AdvReac Severe Agitation Verified 01/27/21 16:40 General Stated Complaint: RespSymp BHUPENDRA: 3 Review of Systems All systems reviewed & are unremarkable except as noted in HPI and below PFSH Medical History Anxiety (12/08/16) Atypical squamous cells of undetermined significance (ASC-US) on cervical Pap smear (04/28/17) BV (bacterial vaginosis) Cervical high risk HPV (human papillomavirus) test positive (04/28/17) Hx of pre-eclampsia in prior , currently Required induction of labor-magnesium sulfate infusion for IUGR. Irregular menstrual bleeding Irritable bowel syndrome Pelvic pressure in female Right lower quadrant pain Severe pre-eclampsia Severe pre-eclampsia affecting childbirth UTI (urinary tract infection) Surgical History repair of right wrist injury Family History Mother Breast cancer Social History Smoking/Tobacco Use Status: Former Tobacco Use Smoking risk assessment performed?: Yes Alcohol Intake: never Drug use: Never Substance use type: does not use Current gender identity: female Do you feel safe at home: Yes Do you feel safe in your relationship?: Yes Female Reproductive History Menstrual control method: condoms (Uses spermacide as well as condoms) History History 3 Para 2 Hx # Term Pregnancies 2 Multiple births 0 Hx # Pregnancies 1 Ectopic pregnancies 0 AB induced 0 Hx Number of Living Children 2 AB spontaneous 1 Past Pregnancies Del. Date GA/Weeks # Outcome Route Wgt Sex Labor Lgth Anesthesia Location Prov Complic 06/26/17 35 No Successful vaginal 1984.467 g Male Katherine NEVA Garcia 11/12/18 38 No Successful vaginal 3175.147 g Female 5 hrs 4 min Perri Dutta CNM Delivery Date: 06/26/17 Preeclampsia and IUGR, IOL, treated with Mag SO4. Jes Fong Delivery Date: 11/12/18 Induced with cytotec, miso due to gestation HTN; pre-eclampsia. Haylee Brennan Exam Narrative Exam Narrative: 1.Const: Well-nourished, Well-developed, appearing stated age 2.Eyes: PERRL, no conjunctival injection, and symmetrical lids. 3.ENT: Atraumatic external nose and ears. Moist MM. Neck: Symmetric, trachea midline, No thyromegaly. 4.CVS: +S1/S2, No murmurs or gallops. Peripheral pulses 2+ and equal in all extremities. Brisk capillary refill in all extremities. 5.RESP: Unlabored respiratory effort. No significant wheezes, mild crackles in the right and left lower lung cedillo. No rhonchi 6.GI: Soft, Nontender/Nondistended, No hepatosplenomegaly. No guarding or rebound. 7.MSK: Normocephalic/Atraumatic, Extremities w/o deformity or ttp No cyanosis or clubbing, Normal movement of all extremities 8.Skin: Warm, Dry. No rashes or lesions. 9.Neuro: aircraft riveter II-XII grossly intact. Sensation grossly intact, no focal neurologic deficits. 10.Psych: (AAO) x3. Appropriate mood and affect Course Vital Signs Vital signs: Vital Signs Temperature 36.8 C 01/27/21 16:36 Pulse 95 H 01/27/21 16:36 Respiratory Rate 18 01/27/21 16:36 Blood Pressure 151/92 H 01/27/21 16:36 Pulse Oximetry 98 01/27/21 16:36 Temperature 36.8 C 01/27/21 16:36 Temperature Source Temporal Artery Scan 01/27/21 16:36 Pulse 95 H 01/27/21 16:36 Respiratory Rate 18 01/27/21 16:36 Respiratory Effort Non-Labored 01/27/21 16:40 Respiratory Depth Normal 01/27/21 16:40 Blood Pressure 151/92 H 01/27/21 16:36 Blood Pressure Position Sitting 01/27/21 16:36 Pulse Oximetry 98 01/27/21 16:36 Oxygen Delivery Method Room Air 01/27/21 16:36 Oxygen Flow Rate 0 01/27/21 16:36 Pain Level 0 01/27/21 16:36
== END 2021-01-27 17:35 | disposition home or self-care (01) ==
PROVIDERS: Emergency Provider Student in an Organized Health Care Education/Training Program; PCP Nurse Practitioner Family
DX: J18.9 Pneumonia, unspecified organism (principal)
CPT/HCPCS: 99283

== ENCOUNTER 2021-03-11 14:57 | Outpatient (REF) | payer MEDICAID, SELFPAY ==
[2021-03-12 16:28] LABS: COVID-19 RT-PCR UVMMC Result Positive (Negative)
== END 2021-03-11 14:58 | disposition home or self-care (01) ==
LOC: LBN 14:57
PROVIDERS: PCP Nurse Practitioner Family; Visit Provider Physician Assistant Medical
DX: Z20.822 Contact with and (suspected) exposure to COVID-19 (principal); J06.9 Acute upper respiratory infection, unspecified
CPT/HCPCS: U0003

== ENCOUNTER 2022-05-25 10:47 | Emergency (ER) | payer MEDICAID, SELFPAY | END 2022-05-25 14:42 | PROVIDERS: Emergency Provider Physician Assistant; PCP Nurse Practitioner Family | DX: J02.9 Acute pharyngitis, unspecified (principal) | CPT/HCPCS: 99282; 87081; 99283 ==

== ENCOUNTER 2022-12-06 03:27 | Emergency (ER) | payer MEDICAID, SELFPAY ==
[2022-12-06 03:31] VITALS: BP 144/91; PULSE 119; RESP 16; TEMP 36.9; O2SAT 98
--- NOTE | 2022-12-06 03:38 | ED.GENADUL_ITS ---
Discharge Plan Disposition Patient Disposition: Home Discharge Details Clinical Impression: Otitis externa, Otalgia of left ear Primary Care Provider: Jeniffer Angulo ED Provider: Regina Montaño Home Meds and New Rx's Prescriptions: New amoxicillin 500 mg tablet 500 mg PO TID Qty: 20 0RF Rx Instructions: Take with a probiotic No Action cyclobenzaprine 10 mg tablet 10 mg PO HS PRN (Reason: muscle spasm) Qty: 30 0RF Rx Instructions: Take with right sided pain. acetaminophen [Tylenol] 325 MG tablet 1,000 mg PO PRN Discharge Instructions Instructions: Otitis Externa (ED) Additional Instructions: 1. Alternate 600 mg of ibuprofen every 3 hours with 1000 mg of acetaminophen as needed for pain. In addition you can use the lidocaine? 4 drops every 2 hours. 2. Use the ofloxacin drops 5 to 10 drops in the left ear once a day. If this does not improve the symptoms start amoxicillin 500 mg every 8 hours for 7 days. 3. If you take the amoxicillin you should buy a probiotic or eat foods with probiotics in them. 4. Return here for any new or worrisome symptoms and make a follow-up appointment with your primary care provider for recheck. Discharge Data Discharge Physician: Regina Montaño Medical Decision Making This is a healthy 27-year-old female who presents with left ear pain and on exam has left otitis externa. The patient has not been swimming but has been sweating because of a recent heat wave. The canal appears obstructed and she is very tender and I do not think will tolerate a wick. I ordered ofloxacin otic but that was not available this evening and I have switched to ciprofloxacin. I have also written for viscous lidocaine. I have also written for amoxicillin because the canal is very swollen and the ciprofloxacin may not adequately reach the infected tissue. I have advised her to take an antibiotic if she takes the amoxicillin and to alternate acetaminophen every 3 hours with ibuprofen as needed for pain. I have also dispensed liquid lidocaine for a topical anesthetic. I have advised her that the ciprofloxacin otic solution is twice a day rather than once a day. I have advised her to return here if she develops any new or worrisome symptoms such as difficulty breathing talking or swallowing or any new or worrisome symptoms. Because I cannot visualize her left TM if she had concurrent otitis media amoxicillin should be sufficient to treat it as well. She does not have any swelling of the mastoid and I do not think she has mastoiditis Differential Diagnosis Differential Diagnosis: Otitis externa, otitis media Medical Records Medical records reviewed: Yes I reviewed the patient's medical records. HPI General Date/Time Provider Initiated Documentation: 12/06/22 03:38 . Limitations to Documentation: no limitations . Information obtained by: patient . History of Present Illness with intensity rated at 8. Quality is described as stabbing, sharp and constant, Patient did receive the following treatments prior to arrival, other (As above) HPI Narrative: Time seen was 3:38 AM in bed 8. The patient is a healthy 27-year-old female who presents with left ear pain for 24 hours. She denies any cold symptoms or rhinorrhea. She is complaining of pain which she describes as constant and 8 out of 10 and radiating behind her ear and into her left cheek. She endorses decreased hearing in the affected ear. She denies any discharge. She has not been swimming but has been sweating because of the recent heat wave. The pain is constant sharp and 8 out of 10 in severity. It is aggravated by swallowing. She went to the pharmacy and they recommended alcohol eardrops to help dry the ear but those were painful and did not improve her symptoms. She came in this morning because she woke at 1 AM with severe left ear pain. She took 500 mg of acetaminophen and 600 mg of ibuprofen prior to arrival. She denies any previous similar episodes. She denies any fevers, chills, change in voice or swelling of the throat. Related Data Home Medications Medication Instructions Recorded Confirmed acetaminophen 325 mg tablet 1,000 mg PO PRN 06/24/17 05/08/21 (Tylenol) cyclobenzaprine 10 mg tablet 10 mg PO HS PRN muscle spasm #30 06/22/20 05/08/21 tabs amoxicillin 500 mg tablet 500 mg PO TID #20 tabs 12/06/22 Previous Rx's Medication Instructions Recorded cyclobenzaprine 10 mg tablet 10 mg PO HS PRN muscle spasm #30 06/22/20 tabs amoxicillin 500 mg tablet 500 mg PO TID #20 tabs 12/06/22 Allergies Allergy/AdvReac Type Severity Reaction Status Date / Time trimethobenzamide Allergy Severe dystonic Verified 07/30/21 09:14 reaction codeine Allergy Unknown Can't Verified 07/30/21 09:14 breath metoclopramide [From Reglan] AdvReac Severe Akathesia Verified 07/30/21 09:14 promethazine [From Phenergan] AdvReac Severe Agitation Verified 07/30/21 09:14 General Stated Complaint: EarProblem BHUPENDRA: 4 Review of Systems Constitutional Constitutional: Denies fever(s) ENT Ears, Nose, Mouth, and Throat: Reports as per HPI, Denies change in voice, Denies dental pain, Denies dysphagia, Denies vertigo, Denies ear discharge, Reports otalgia, Reports hearing loss, Denies tinnitus, Denies sore throat and Denies throat swelling Cardiovascular Cardiovascular: Denies chest pain Respiratory Respiratory: Reports as per HPI and Denies cough Gastrointestinal Gastrointestinal: Denies abdominal pain, Denies dysphagia, Denies nausea and Denies vomiting Neurologic Neurologic: Denies vertigo Allergic/Immunologic Allergic/Immunologic: Denies throat swelling Comments: Allergies per nursing note PFSH All Active Problems Otitis externa (Acute) Otalgia of left ear (Acute) Positive test (Acute) Irritable bowel syndrome (Chronic) Weight gain (Acute) Family hx-breast malignancy (Acute) Anxiety (Acute 12/08/16) Medical History BV (bacterial vaginosis) Hx of pre-eclampsia in prior , currently Required induction of labor-magnesium sulfate infusion for IUGR. 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 Female Reproductive History Menstrual control method: condoms History History 3 Para 2 Hx # Term Pregnancies 2 Multiple births 0 Hx # Pregnancies 1 Ectopic pregnancies 0 AB induced 0 Hx Number of Living Children 2 AB spontaneous 1 Past Pregnancies Del. Date GA/Weeks # Preg Succ Route Wgt Sex Labor Lgth Anesth esia Location [facility] 06/26/17 35 No vaginal 1984.467 g Male Shu Garcia, MANDY 11/12/18 38 No vaginal 3175.147 g Female 5 hrs 4 min Perri Dtuta CNM Delivery Date: 06/26/17 Last Updated by: Jes Fong CNM Preeclampsia and IUGR, IOL, treated with Mag SO4. Delivery Date: 11/12/18 Last Updated by: Haylee Perdomo LPN Induced with cytotec, miso due to gestation HTN; pre-eclampsia. Exam Const General: cooperative, healthy appearing, comfortable, no acute distress, well developed, well groomed and well hydrated Nutritional Appearance: average body habitus and well nourished Orientation: alert, awake and oriented x3 HENMT Head: normal to inspection, normocephalic and atraumatic Ears: hearing grossly normal bilaterally, external ears normal, normal mastoids bilaterally, unable to visualize TM (Auditory canal is swollen shut, tenderness to palpation of the tragus) on the left and other (Right ear canal and TM are normal, the left canal is swollen shut. ) General nose exam: external nose normal, nares normal and no nasal discharge Face and sinus: normal facial exam, sinuses nontender and face symmetric Mouth: oral mucosae normal, lip normal, tongue normal, oropharynx normal, moist mucous membranes and other (Normal phonation. The patient is handling secretions.) Teeth and gingiva: dentition normal and other (Dentition is good. No caries, buccal cellulitis or airway compromise) Throat: posterior oropharynx normal and uvula midline Eyes General: appearance normal, both eyes and all related structures Eyelids: eyelids normal Conjunctivae: conjunctivae normal Sclera: sclerae normal Cornea: corneas normal Pupils: PERRL EOM: EOM intact bilaterally and No nystagmus Neck Neck: normal visual inspection, full ROM, no lymphadenopathy, no meningeal signs, trachea midline and supple Lymphatic: no lymphadenopathy noted Resp Effort & Inspection: normal respiratory effort, able to speak in complete sentences, no audible wheezes, no nasal flaring, no respiratory distress, no retractions, no stridor, not tachypneic, no tracheal deviation, no use of accessory muscles, No prolonged expiratory phase and other (Normal inspiratory to expiratory ratio.) Auscultation: clear to auscultation bilaterally, no rales, no rhonchi, no wheezes and no rubs Tactile Fremitus: tactile fremitus absent Cardio Jugular venous pressure: no JVD Palpation: normal PMI Rate: regular rate Rhythm: regular rhythm Heart Sounds: S1 normal, S2 normal, no gallops, no murmurs and no rubs GI Inspection: non-distended Palpation: soft, no guarding and nontender Percussion: normal to percussion Auscultation: normal bowel sounds Back/Spine/Pelvis Back: No back tenderness Cervical Spine: normal cervical lordosis, cervical ROM normal, No cervical muscular tenderness, No pain with cervical ROM, No cervical spinal tenderness and No step off deformity Thoracic/Lumbar Spine: thoracic and lumbar spine normal to inspection, No thoracic spinal tenderness and No lumbar spinal tenderness Skin General skin exam: no rashes or lesions noted, turgor normal, no petechiae, no purpura and other (Skin is normal for ethnicity.) Lesions: no lesions Rashes: no rashes Trauma: no lacerations or abrasions Neuro General: patient alert, patient awake, patient oriented x3, moves all extremities, no meningeal signs, no focal motor deficits and CN's II-XI intact bilaterally Cranial Nerves: CN's II-XI intact bilaterally, PERRL, accommodation normal, EOM intact bilaterally, no nystagmus, facial strength normal, tongue midline, hearing normal and no nystagmus Cognition: normal cognition Speech: speech normal Gait: normal gait Motor: muscle tone normal throughout and strength 5/5 throughout Sensory Exam: no sensory deficits noted Extrem General: normal to inspection, full ROM, capillary refill normal, no clubbing, cyanosis or edema and no calf tenderness Psych Appearance: grossly normal Affect: normal affect Attitude: cooperative Thought Process: normal Thought Content: normal Insight: insight good Judgment: judgment good Other: The patient appears to have capacity make medical decisions. Course Vital Signs Vital signs: Vital Signs Temperature 36.9 C 12/06/22 03:31 Pulse 119 H 12/06/22 03:31 Respiratory Rate 16 12/06/22 03:31 Blood Pressure 144/91 H 12/06/22 03:31 Pulse Oximetry 98 12/06/22 03:31 Temperature 36.9 C 12/06/22 03:31 Temperature Source Oral 12/06/22 03:31 Pulse 119 H 12/06/22 03:31 Respiratory Rate 16 12/06/22 03:31 Respiratory Effort Normal 12/06/22 03:35 Blood Pressure 144/91 H 12/06/22 03:31 Blood Pressure Position Sitting 12/06/22 03:31 Pulse Oximetry 98 12/06/22 03:31 Oxygen Delivery Method Room Air 12/06/22 03:31 Oxygen Flow Rate 0 12/06/22 03:31 Pain Level 8 12/06/22 03:35
[2022-12-06] MEDS: Acetaminophen 500 MG TAB PO (04:22)
== END 2022-12-06 04:19 | disposition home or self-care (01) ==
PROVIDERS: Emergency Provider Emergency Medicine Emergency Medical Services; PCP Nurse Practitioner Family
DX: H60.92 Unspecified otitis externa, left ear (principal); H92.02 Otalgia, left ear
CPT/HCPCS: 99283; 99284

== ENCOUNTER 2022-12-08 14:41 | Emergency (ER) | payer MEDICAID, SELFPAY ==
[2022-12-08] VITALS (19 sets, daily range): BP systolic 130–167; BP diastolic 78–98; PULSE 92–114; RESP 16; TEMP 37.1–37.9; O2SAT 97–100
--- NOTE | 2022-12-08 | DI.CT_ITS ---
Exam(s) CT NECK W CT HEAD WO/W EXAM: CT HEAD WO/W CLINICAL HISTORY: L earjaw otits; mastoiditis v septic thrombophleb?. TECHNIQUE: Imaging Protocol: Axial computed tomography images with coronal and sagittal reformatted images were created and reviewed. CONTRAST MATERIAL: Intravenous: Omnipaque 350 Contrast volume:60 ml COMPARISON: CT HEAD WITHOUT CONTRAST from 04/01/[address] NECK W from 12/08/2022 FINDINGS: Ventricles and Extra axial spaces: Normal in size and morphology for the patient's age. Hemorrhage: None. Cerebral parenchyma: Normal. Enhancement: No suspicious enhancement. Midline shift: None. Brainstem/Cerebellum: Normal. Calvarium: Normal. Visualized Paranasal sinuses/Mastoids: Mild amount of fluid within the left mastoid air cells inferio rly. No evidence of bony erosion in soft tissue swelling around the left ear without evidence of jana inable abscess. Soft tissue attenuation seen within the left external auditory canal extending into the internal auditory canal. Ossicles and semi circular canals are unremarkable. No visible bony de struction. Multiple enlarged lymph nodes on the left side of the neck. Cervical spine unremarkable. Lung apices clear. IMPRESSION: Normal CT scan of the head. Left otitis externa with involvement of external and internal auditory canals. No bony destruction. RADIATION DOSE DELIVERED: 1,435.48mGy.cm Total DLP DATA REPOSITORY: All CT scans at this facility are submitted to the National Radiology Data Registry (NRDR) Dose Index Registry (DIR) with the [employer] (ACR). RADIATION OPTIMIZATION: All CT scans at this facility use at least one of these dose optimization te chniques: automated exposure control; mA and/or kV adjustment per patient size (includes targeted exa ms where dose is matched to clinical indication); or iterative reconstruction.
--- NOTE | 2022-12-08 15:27 | ED.GENADUL_ITS ---
Discharge Plan Disposition Patient Disposition: Home Discharge Details Clinical Impression: Otitis externa, Otitis media Primary Care Provider: Jeniffer Angulo ED Provider: Benedicto Winston Home Meds and New Rx's Prescriptions: New amoxicillin-pot clavulanate 875-125 mg tablet 1 tab PO BID 10 Days Qty: 20 0RF No Action acetaminophen [Tylenol] 325 MG tablet 1,000 mg PO PRN amoxicillin 500 mg tablet 500 mg PO TID Qty: 20 0RF Rx Instructions: Take with a probiotic ofloxacin 0.3 % Drops 5 - 10 drp otic (ear) DAILY ciprofloxacin-dexamethasone [Ciprodex] 0.3-0.1 % Drops,Suspension 1 drp otic (ear) DIRECTED Discharge Instructions Instructions: Otitis Externa (ED), Ear Infection (ED) Additional Instructions: Please discard your original amoxicillin prescription, we will call in a new prescription for amoxicillin/clavulanate. Continue with ofloxacin eardrops. If your ear wick does not come out within 3 to 5 days and you have any issues removing it please return to the emergency department or your primary care physician. Please return for any worsening symptoms Medical Decision Making 27-year-old female recently diagnosed with otitis externa possible otitis media started on amoxicillin and external drops presents with worsening ear pain jaw pain and neck pain, noted to be borderline febrile, tachycardic, uncomfortable appearing, large amount of exudate in external canal, tenderness over mastoid process. Concern for concomitant mastoiditis versus septic thrombophlebitis versus must consider abscess superficial versus intracranial although patient is neurologically intact and nonmeningeal. Low suspicion for spinal epidural abscess. Must also consider worsening otitis media/externa. Will obtain labs blood cultures, imaging of head and neck including CT head and neck with contrast, fluids empiric antibiotics analgesia anti-inflammatory. Close reassessment of symptoms disposition pending results and reassessment 19: 06 patient resting more comfortably. CT head and neck unremarkable. Was able to extract some exudate from the left ear canal, placed a left-sided ear wick. Patient will continue with topical drops will switch her oral antibiotic to Augmentin HPI General Date/Time Provider Initiated Documentation: 12/08/22 14:43 . HPI Narrative: 27-year-old female recent diagnosis of otitis externa possible otitis media started on amoxicillin and topical drops presents with worsening ear pain jaw pain posterior ear pain fevers and lateral neck discomfort Related Data Home Medications Medication Instructions Recorded Confirmed acetaminophen 325 mg tablet 1,000 mg PO PRN 06/24/17 12/08/22 (Tylenol) amoxicillin 500 mg tablet 500 mg PO TID #20 tabs 12/06/22 12/08/22 amoxicillin 875 mg-potassium 1 tab PO BID 10 days #20 tabs 12/08/22 clavulanate 125 mg tablet ciprofloxacin 0.3 %-dexamethasone 1 drp otic (ear) DIRECTED 12/08/22 12/08/22 0.1 % ear drops,suspension (Ciprodex) ofloxacin 0.3 % eye drops 5 - 10 drp otic (ear) DAILY 12/08/22 12/08/22 Previous Rx's Medication Instructions Recorded amoxicillin 500 mg tablet 500 mg PO TID #20 tabs 12/06/22 amoxicillin 875 mg-potassium 1 tab PO BID 10 days #20 tabs 12/08/22 clavulanate 125 mg tablet Allergies Allergy/AdvReac Type Severity Reaction Status Date / Time trimethobenzamide Allergy Severe dystonic Verified 12/08/22 14:52 reaction codeine Allergy Unknown Can't Verified 12/08/22 14:52 breath metoclopramide [From Reglan] AdvReac Severe Akathesia Verified 12/08/22 14:52 promethazine [From Phenergan] AdvReac Severe Agitation Verified 12/08/22 14:52 General Stated Complaint: EarProblem BHUPENDRA: 3 Review of Systems Narrative: Review of Systems Constitutional: negative Eyes: negative ENT: Ear pain, jaw pain, neck pain Cardiovascular: negative Respiratory: negative Gastrointestinal: negative : negative Musculoskeletal: negative Skin: negative Neurologic: negative Psych: negative PFSH All Active Problems (Updated 12/08/22 @ 19:12 by Benedicto Winston MD) Otitis externa (Acute) Otalgia of left ear (Acute) Otitis externa (Acute) Otitis media (Acute) Positive test (Acute) Irritable bowel syndrome (Chronic) Weight gain (Acute) Family hx-breast malignancy (Acute) Anxiety (Acute 12/08/16) Medical History BV (bacterial vaginosis) Hx of pre-eclampsia in prior , currently Required induction of labor-magnesium sulfate infusion for IUGR. Severe pre-eclampsia Severe pre-eclampsia affecting childbirth UTI (urinary tract infection) Surgical History repair of right wrist injury Family History Mother Breast cancer Social History Smoking/Tobacco Use Status: Former Tobacco Use Smoking risk assessment performed?: Yes Alcohol Intake: never Drug use: Never Substance use type: does not use Household members: children Number of Children: 2 Education Level: college current occupation: Work on 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 Female Reproductive History Menstrual control method: condoms History History 3 Para 2 Hx # Term Pregnancies 2 Multiple births 0 Hx # Pregnancies 1 Ectopic pregnancies 0 AB induced 0 Hx Number of Living Children 2 AB spontaneous 1 Past Pregnancies Del. Date GA/Weeks # Preg Succ Route Wgt Sex Labor Lgth Anesth esia Location [facility] 06/26/17 35 No vaginal 1984.467 g Male Shu john Garcia CNM 11/12/18 38 No vaginal 3175.147 g Female 5 hrs 4 min Perri Dutta CNM Delivery Date: 06/26/17 Last Updated by: Jes Fong CNM Preeclampsia and IUGR, IOL, treated with Mag SO4. Delivery Date: 11/12/18 Last Updated by: Haylee Perdomo LPN Induced with cytotec, miso due to gestation HTN; pre-eclampsia. Exam Narrative Exam Narrative: Physical Examination General: alert, awake, cooperative, appears uncomfortable HEENT: normocephalic, atraumatic; PERRL, EOM intact, conjunctiva normal; no nasal discharge; moist mucous membranes, oral and pharyngeal mucosa normal, tolerating secretions; exudate and external canal of left ear, tenderness over mastoid process without deformity of ear lobe; tenderness along lateral neck without crepitus erythema or induration, no midline spinal tenderness Neck: supple, trachea midline; full ROM Chest: normal to inspection Respiratory: normal respiratory effort, speaking in full sentences, clear to auscultation, no wheezing, rales or rhonchi Cardiac: Tachycardia, regular rhythm, S1S2 intact, no murmurs rubs or gallops GI: abdomen soft, non-tender, non-distended; no palpable mass or hepatosplenomegaly Skin: no lesions, rashes or trauma appreciated Neuro: AAOx3, normal speech, moving all extremities Course Vital Signs Vital signs: Vital Signs Temperature 37.9 C H 12/08/22 14:44 Pulse 114 H 12/08/22 14:44 Respiratory Rate 16 12/08/22 14:44 Blood Pressure 167/89 H 12/08/22 14:44 Pulse Oximetry 99 12/08/22 14:44 Temperature 37.9 C H 12/08/22 14:44 Temperature Source Skin 12/08/22 14:44 Pulse 114 H 12/08/22 14:44 Respiratory Rate 16 12/08/22 14:44 Respiratory Effort Normal 12/08/22 14:54 Blood Pressure 167/89 H 12/08/22 14:44 Blood Pressure Position Sitting 12/08/22 14:44 Pulse Oximetry 99 12/08/22 14:44 Oxygen Delivery Method Room Air 12/08/22 14:44 Oxygen Flow Rate 0 12/08/22 14:44 Pain Level 9 12/08/22 14:44 Comment ibuprofen at 1150 tylenol at 0650 12/08/22 14:44 Lab/Test Results Lab/Test Results: 12/08/22 15:24 Blood Blood Culture - Pending 12/08/22 15:24 Blood Blood Culture - Pending
[2022-12-08] MEDS: ACETAMINOPHEN 1,000 MG/100 ML BTL 400 MG IVPB (16:00)
[2022-12-08] MEDS: Normal Saline 1,000 ML 1000 ML IV (16:00)
[2022-12-08] MEDS: Ketorolac 15 MG/ML VIAL IVP (16:00)
[2022-12-08] MEDS: AMPICILLIN/SULBACTAM 1.5 GM in Normal Saline 50 ML IVPB (16:00)
[2022-12-08 16:22] LABS: Abs Immature Grans 0.04 10^3/uL (0.0-0.06); Absolute Basophil Count 0.04 10^3/uL (0.0-0.2); Absolute Eosinophil Count 0.06 10^3/uL (0.0-0.7); Absolute Lymphocyte Count 1.82 10^3/uL (1.2-3.4); Absolute Monocyte Count 0.57 10^3/uL (0.1-0.8); Absolute Neutrophil Count 8.17 10^3/uL (1.2-6.7); Basophils % 0.4; Eosinophils % 0.6; HCT 42.5 % (36.0-46.0); HGB 14.6 g/dL (11.2-15.7); Immature Grans % 0.4; MCH 29.1 pg (27.0-33.0); MCHC 34.4 % (32.0-36.0); MCV 85 fL (80-95); MPV 9.2 fL (8.0-11.0); Monocytes % 5.3; Neutrophils % 76.3; Platelet Count 368 10^3/uL (130-400); RBC 5.02 10^6/uL (3.93-5.22); RDW 12.4 % (11.7-14.6); RDW-SD 38.3 fL
[2022-12-08 16:31] LABS: PTT Activated 28.9 sec (21.5-31.9); Prothrombin Time 10.3 sec (9.3-11.0)
[2022-12-08 16:41] LABS: ALT 23 U/L (14-59); AST 17 U/L (15-37); Albumin 3.8 g/dL (3.4-5.0); Alkaline Phosphatase 75 U/L (46-116); Anion Gap 13.3 mmol/L (3-11); BUN 10 mg/dL (7-18); Bilirubin, Total 0.6 mg/dL (0.2-1.0); CO2 23.7 mmol/L (21.0-32.0); CREATININE 0.8 mg/dL (0.55-1.02); Calcium 9.5 mg/dL (8.5-10.1); Chloride 100 mmol/L (98-107); Estimated GFR 102.22 (mL/min/1.73m2); Glucose 91 mg/dL (74-106); Potassium 3.8 mmol/L (3.5-5.1); Sodium 137 mmol/L (136-145); Total Protein 8.6 g/dL (6.4-8.2)
[2022-12-08] MEDS: Normal Saline - Diluent 50 ML VIAL IJ (17:30)
[2022-12-08] MEDS: Omnipaque 350 MG/ML 100 ML BTL IJ (17:31)
== END 2022-12-08 19:23 | disposition home or self-care (01) ==
PROVIDERS: Emergency Provider Emergency Medicine; PCP Nurse Practitioner Family
DX: H66.92 Otitis media, unspecified, left ear (principal); H60.92 Unspecified otitis externa, left ear
CPT/HCPCS: 70491; 80053; 87040; 96361; 96365; 96375; 99285; 70470; 85025; 85610; 85730; 99284; J0131; J0295; J1885; J3490

== ENCOUNTER → 2023-03-05 13:54 | Outpatient (CLI) | payer MEDICAID, SELFPAY ==
--- NOTE | 2023-03-05 10:45 | DI.US_ITS ---
Exam(s) US OB 1ST TRIMESTER EXAM: US OB 1ST TRIMESTER CLINICAL HISTORY: location,O36.80x0. COMPARISON: No exams were available for comparison TECHNIQUE: Transabdominal Transvaginal first trimester obstetrical ultrasound performed. FINDINGS: Pelvic Measurments Uterus: 10.6 x 5.3 x 6.6 cm. Small anechoic collection within endometrial stripe could represent ear ly gestational sac versus pseudo sac, measuring 8.4 x 7.2 by 9.1 millimeters. Rt Ovary: Normal appearance. 2.9 x 1.0 x 2.0 cm Lt Ovary: 2.8 x 3.1 x 3.6 cm, 2.6 centimeter cyst with thick wall which has the appearance of a corpu s luteum cyst. Ectopic not entirely excluded. No pole seen. No free fluid. IMPRESSION: Question of early intrauterine gestation versus pseudo sac. 2.6 centimeter left ovarian cyst, corpus luteum cyst versus ectopic . No pole seen. DATA REPOSITORY:
== END ==
PROVIDERS: PCP Nurse Practitioner Family; Visit Provider Obstetrics & Gynecology
DX: O36.80X0 Pregnancy with inconclusive fetal viability, not applicable or unspecified (principal)
CPT/HCPCS: 76801

== ENCOUNTER 2023-03-05 15:10 | Outpatient (CLI) | payer MEDICAID, SELFPAY ==
[2023-03-05 12:21] LABS: HCG Quant, Pregnancy 5264 mIU/mL (1-3)
== END 2023-03-05 15:11 | disposition home or self-care (01) ==
LOC: LBO 15:10
PROVIDERS: PCP Nurse Practitioner Family; Visit Provider Obstetrics & Gynecology
DX: O36.80X0 Pregnancy with inconclusive fetal viability, not applicable or unspecified (principal)
CPT/HCPCS: 36415; 84702

== ENCOUNTER 2023-03-07 11:10 | Outpatient (CLI) | payer MEDICAID, SELFPAY ==
[2023-03-07 11:32] VITALS: BP 123/69; PULSE 78; RESP 16; TEMP 36.8; O2SAT 97
[2023-03-07 12:27] LABS: HCG Quant, Pregnancy 8537 mIU/mL (1-3)
--- NOTE | 2023-03-07 12:55 | W.PM.PROGNOT ---
Date of Service Date of service: 03/07/23 Time of Service: 12:55 Assessment and Plan Assessment and plan (1) of unknown anatomic location: Status: Acute Assessment and plan: Still today, with a rising quantitative hCG but not quite doubling the differential would include early miscarriage, early normal intrauterine , or ectopic . Ectopic precautions were given. She will be seen back in the office in 48 hours after her next in the series of quantitative hCGs. Subjective Subjective Interval history since last seen: Patient seen and examined in the triage area today and laboratory studies reviewed. We had a lengthy conversation regarding her quantitative hCG and her overall health. Her quantitative hCG has risen by 62% which is not a complete doubling, however still could be within normal range. She has no pain, no bleeding, no crampiness. Overall she is feeling well. After lengthy conversation discussing the risks of ectopic and the possibility that this could be an ectopic versus early intrauterine versus abnormal uterine all of her questions were answered. The plan at this time will be to repeat a quantitative hCG in 48 hours with physical examination. Ectopic precautions have been given. Exam Const General: cooperative, healthy appearing, comfortable, no acute distress, well developed and well groomed Eyes General: appearance normal, both eyes and all related structures Resp Effort & Inspection: normal respiratory effort and no cough Cardio Rate: regular rate Rhythm: regular rhythm GI Inspection: normal to inspection and non-distended Palpation: soft, not firm, no guarding, no masses, not rigid and nontender Psych Appearance: grossly normal Mental Status: mental status grossly normal Affect: normal affect Thought Process: normal Thought Content: normal Insight: insight good Judgment: judgment good Objective Last Vital Signs Temp 98.2 F 03/07/23 11:32 Pulse 78 03/07/23 11:32 Resp 16 03/07/23 11:32 BP 123/69 03/07/23 11:32 Pulse Ox 97 03/07/23 11:32 Laboratory Results - last 24 hr 03/07/23 03/07/23 11:06 11:20 Serum HCG, Qual Cancelled Beta HCG, Quant 8537 H Time Spent with Patient Time Spent with Patient: 25-34 minutes Time was spent: preparing to see the patient(eg.review tests), obtaining and/or reviewing separately otained hiistory, ordering medications,tests, procedures, indepentently interpreting results and counseling the patient
== END 2023-03-07 12:50 ==
LOC: BCD 11:13 → OBS 11:14
PROVIDERS: PCP Nurse Practitioner Family; Visit Provider Obstetrics & Gynecology Gynecology
DX: O36.80X0 Pregnancy with inconclusive fetal viability, not applicable or unspecified (principal)
CPT/HCPCS: 36415; 84702; 84703

== ENCOUNTER 2023-03-09 18:15 | Outpatient (CLI) | payer MEDICAID, SELFPAY ==
[2023-03-09 11:10] LABS: Abs Immature Grans 0.02 10^3/uL (0.0-0.06); Absolute Basophil Count 0.03 10^3/uL (0.0-0.2); Absolute Eosinophil Count 0.09 10^3/uL (0.0-0.7); Absolute Lymphocyte Count 1.72 10^3/uL (1.2-3.4); Absolute Monocyte Count 0.47 10^3/uL (0.1-0.8); Absolute Neutrophil Count 5.12 10^3/uL (1.2-6.7); Basophils % 0.4; Eosinophils % 1.2; HCT 40.3 % (36.0-46.0); HGB 13.6 g/dL (11.2-15.7); Immature Grans % 0.3; Lymphocytes % 23.1; MCH 29.2 pg (27.0-33.0); MCHC 33.7 % (32.0-36.0); MCV 87 fL (80-95); MPV 8.8 fL (8.0-11.0); Monocytes % 6.3; Neutrophils % 68.7; Platelet Count 322 10^3/uL (130-400); RBC 4.66 10^6/uL (3.93-5.22); RDW 12.9 % (11.7-14.6); RDW-SD 40.6 fL; WBC 7.45 10^3/uL (4.4-10.8)
[2023-03-09 11:50] LABS: ALT 47 U/L (14-59); AST 27 U/L (15-37); Albumin 3.4 g/dL (3.4-5.0); Alkaline Phosphatase 57 U/L (46-116); Anion Gap 7.9 mmol/L (3-11); BUN 9 mg/dL (7-18); Bilirubin, Total 0.5 mg/dL (0.2-1.0); CO2 27.1 mmol/L (21.0-32.0); CREATININE 0.7 mg/dL (0.55-1.02); Calcium 8.8 mg/dL (8.5-10.1); Chloride 101 mmol/L (98-107); Estimated GFR 119.99 (mL/min/1.73m2); Glucose 79 mg/dL (74-106); Potassium 3.8 mmol/L (3.5-5.1); Sodium 136 mmol/L (136-145); Total Protein 7.1 g/dL (6.4-8.2)
[2023-03-09 11:51] LABS: HCG Quant, Pregnancy 13491 mIU/mL (1-3)
== END 2023-03-09 18:16 | disposition home or self-care (01) ==
LOC: LBO 18:15
PROVIDERS: PCP Nurse Practitioner Family; Visit Provider Obstetrics & Gynecology
DX: O36.80X0 Pregnancy with inconclusive fetal viability, not applicable or unspecified (principal)
CPT/HCPCS: 36415; 80053; 84702; 85025

== ENCOUNTER 2023-04-20 04:41 | Outpatient (CLI) | payer MEDICAID, SELFPAY ==
[2023-04-20 10:53] LABS: Panorama Kit Sent via Fed Ex
[2023-04-20 11:04] LABS: Abs Immature Grans 0.02 10^3/uL (0.0-0.06); Absolute Basophil Count 0.02 10^3/uL (0.0-0.2); Absolute Eosinophil Count 0.07 10^3/uL (0.0-0.7); Absolute Lymphocyte Count 1.41 10^3/uL (1.2-3.4); Absolute Monocyte Count 0.43 10^3/uL (0.1-0.8); Absolute Neutrophil Count 4.73 10^3/uL (1.2-6.7); Basophils % 0.3; HCT 37.4 % (36.0-46.0); HGB 12.9 g/dL (11.2-15.7); Immature Grans % 0.3; Lymphocytes % 21.1; MCH 29.3 pg (27.0-33.0); MCHC 34.5 % (32.0-36.0); MCV 85 fL (80-95); MPV 9.2 fL (8.0-11.0); Monocytes % 6.4; Neutrophils % 70.9; Platelet Count 276 10^3/uL (130-400); RDW 12.8 % (11.7-14.6); RDW-SD 39.2 fL; WBC 6.68 10^3/uL (4.4-10.8)
[2023-04-20 12:28] LABS: ALT 40 U/L (14-59); AST 23 U/L (15-37); Alkaline Phosphatase 58 U/L (46-116); Anion Gap 8.3 mmol/L (3-11); BUN 9 mg/dL (7-18); Bilirubin, Total 0.3 mg/dL (0.2-1.0); CO2 21.7 mmol/L (21.0-32.0); CREATININE 0.5 mg/dL (0.55-1.02); Calcium 8.5 mg/dL (8.5-10.1); Chloride 103 mmol/L (98-107); Estimated GFR 130.12 (mL/min/1.73m2); Glucose 104 mg/dL (74-106); Potassium 3.9 mmol/L (3.5-5.1); Sodium 133 mmol/L (136-145)
[2023-04-20 18:14] LABS: Hepatitis B Surface Ag Negative (Negative)
[2023-04-20 18:44] LABS: Hepatitis C Ab w Rflx HCV PCR Negative (Negative)
[2023-04-20 18:47] LABS: HIV-1/2 Ag & Ab Screen Negative (Negative)
[2023-04-21 10:08] LABS: Varicella IgG Antibody Positive (See Note)
[2023-04-21 10:11] LABS: Rubella IgG Ab (UVM) Positive (See Note)
[2023-04-22 15:47] LABS: Syphilis IgG w/Reflex Nonreactive (Nonreactive)
== END 2023-04-20 04:42 | disposition home or self-care (01) ==
LOC: LBO 04:41
PROVIDERS: PCP Nurse Practitioner Family; Visit Provider Advanced Practice Midwife
DX: O09.291 Supervision of pregnancy with other poor reproductive or obstetric history, first trimester; F41.9 Anxiety disorder, unspecified; Z3A.12 12 weeks gestation of pregnancy
CPT/HCPCS: 36415; 80053; 86787; 86803; 86850; 86900; 86901; 87340; 87389; 84443; 85025; 86762; 86780

== ENCOUNTER 2023-04-20 10:34 | Outpatient (REF) | payer MEDICAID, SELFPAY ==
--- NOTE | 2023-04-20 10:00 | PAPFT_PTH ---
PATIENT: Hasmukh Young LOC: [facility] U#:[id number] AGE/SX: 27/F ROOM: RE04/20/[address]: Jes Fong : 1995 BED: DIS: 04/20/2023 SPEC #: [id number] RECD: 04/20/23 12:55 STATUS: LORRI REGabino #: [id number] WILMER: 04/20/23 10:[address]: Jes Fong DEPT: [facility] Cytology RECD BY: Nataliia Gonzalez ENTERED: 04/20/23 12:55 SP TYPE: PAPFT SANG DR: Jeniffer Angulo Tissues: 1 - CX/ENDOCX FOR PAP SMEARS Procedures: PAP THIN PREP/UVM Screening Comments: [id number]
[2023-04-20 13:52] LABS: PROTEIN 10.9 mg/dL; Prot/Crea Ur Ratio 0.13
[2023-04-20 13:58] LABS: *AMPHETAMINES SCREEN URINE Negative (Negative); *BARBITURATES SCREEN URINE Negative (Negative); *BENZODIAZEPINES SCREEN URINE Negative (Negative); Cannabinoids THC Negative (Negative); Cocaine Screen,Urine Negative (Negative); METHADONE URINE SCREEN Negative (Negative); OPIATES URINE SCREEN Positive (Negative)
[2023-04-20 14:02] LABS: Tricyclic Antidepressants Negative (Negative)
[2023-04-21 13:24] LABS: Chlamydia Result Negative (Negative); GC Result Negative (Negative)
[2023-04-24 11:55] LABS: Fentanyl Interpretation Negative.; Fentanyl by LC-MS/MS Not Detected; Norfentanyl by LC-MS/MS Not Detected
== END 2023-04-20 10:35 | disposition home or self-care (01) ==
LOC: LBN 10:34
PROVIDERS: Advanced Practice Midwife; PCP Nurse Practitioner Family; Visit Provider Advanced Practice Midwife
DX: O09.292 Supervision of pregnancy with other poor reproductive or obstetric history, second trimester; R82.5 Elevated urine levels of drugs, medicaments and biological substances; Z3A.16 16 weeks gestation of pregnancy
CPT/HCPCS: 80307; 87491; 87591; 88142; 80354; 82565; 84156; 87086

== ENCOUNTER 2023-04-22 10:02 | Outpatient (REF) | payer MEDICAID, SELFPAY ==
[2023-04-22 11:27] LABS: *AMPHETAMINES SCREEN URINE Negative (Negative); *BARBITURATES SCREEN URINE Negative (Negative); *BENZODIAZEPINES SCREEN URINE Negative (Negative); Cannabinoids THC Negative (Negative); Cocaine Screen,Urine Negative (Negative); METHADONE URINE SCREEN Negative (Negative); OPIATES URINE SCREEN Negative (Negative)
[2023-04-22 11:28] LABS: Tricyclic Antidepressants Negative (Negative)
== END 2023-04-22 10:03 | disposition home or self-care (01) ==
LOC: LBN 10:02
PROVIDERS: PCP Nurse Practitioner Family; Visit Provider Advanced Practice Midwife
DX: Z34.91 Encounter for supervision of normal pregnancy, unspecified, first trimester (principal); Z3A.12 12 weeks gestation of pregnancy
CPT/HCPCS: 80307

== ENCOUNTER 2023-04-24 08:31 | Outpatient (RCR) | payer MEDICAID, SELFPAY ==
--- NOTE | 2023-04-24 08:45 | HOLTER_ITS ---
APPROVED REPORT Exam Type: HOLTER MONITOR APPLICATION Reason for Test: SYNCOPE Patient Location: O Conclusion 1. Sinus rhythm throughout, rate range 62-112(average 82) bpm. 2. Rare PACs, no SVT 3. No PVCs or VT 4. No atrial fibrillation 5. No pauces.
== END 2023-04-29 23:59 | disposition home or self-care (01) ==
LOC: CARDOPNVT 08:31
PROVIDERS: PCP Nurse Practitioner Family; Visit Provider Internal Medicine Cardiovascular Disease
DX: R55 Syncope and collapse (principal)
CPT/HCPCS: 93225; 93226

== ENCOUNTER 2023-04-29 04:26 | Outpatient (CLI) | payer MEDICAID, SELFPAY ==
[2023-04-29 10:49] LABS: Glucose,1 Hr (Glucola) 72 mg/dL (80-140)
== END 2023-04-29 04:27 | disposition home or self-care (01) ==
LOC: LBO 04:26
PROVIDERS: PCP Nurse Practitioner Family; Visit Provider Advanced Practice Midwife
DX: Z34.91 Encounter for supervision of normal pregnancy, unspecified, first trimester (principal); Z3A.13 13 weeks gestation of pregnancy
CPT/HCPCS: 36415; 82950

== ENCOUNTER → 2023-05-15 01:35 | Outpatient (CLI) | payer MEDICAID, SELFPAY ==
--- NOTE | 2023-05-15 07:30 | DI.US_ITS ---
APPROVED REPORT EXAM: Comprehensive 2D, Doppler, and color-flow Echocardiogram Patient Location: Out-Patient Outboard Motor Mechanic: Camilla Freeman RDCS (AE) Indications: Syncope and collapse, 16 Weeks Other Information Study Quality: Good Conclusion Normal left ventricular wall thickness and chamber size. Ejection fraction is 60 to 65%. Wall motio n is normal. Diastolic function is normal Normal right ventricular size and systolic function Both atria are normal in size There is no structural or hemodynamically significant valvular disease Wall motion Left Ventricle The left ventricle is normal size. The left ventricular systolic function is normal. The left ventric ular ejection fraction is within the normal range. There is normal left ventricular wall thickness. T here is normal LV segmental wall motion. The left ventricular diastolic function is normal. There is no ventricular septal defect visualized. LVEF is 60%. Right Ventricle The right ventricle is normal size. The right ventricular systolic function is normal. Atria The left atrium size is normal. The right atrium size is normal. The interatrial septum is intact wit h no evidence for an atrial septal defect. Aortic Valve The aortic valve is normal in structure. Aortic valve is trileaflet. There is no aortic valvular sten osis. No aortic regurgitation is present. Mitral Valve The mitral valve is normal in structure. No evidence of mitral valve stenosis. There is no mitral sachi ve regurgitation noted. Tricuspid Valve The tricuspid valve is normal in structure. There is no tricuspid valve stenosis. Trace tricuspid reg urgitation. Unable to assess PA pressure. Pulmonic Valve The pulmonary valve is normal in structure. There is no pulmonic valvular stenosis. Trace pulmonic r egurgitation. Great Vessels The aortic root is normal in size. The ascending aorta is normal in size. Aortic arch is normal in ca liber. IVC is normal in size and collapses >50% with inspiration. Pericardium There is no pericardial effusion. 2D Dimensions IVSD d PLAX 0.76 cm F: 0.6-1.0 Ao Root d 2.98 cm F: 2.7 - 3.3 LVPW d PLAX 0.79 cm F: 0.6 - 1.0 Ao Asc Diam d 3.10 cm F: 2.3 - 3.1 LVID d PLAX 4.91 cm F: 3.8 - 5.2 LVDs 3.23 cm F: 2.2 - 3.5 LV EF Teichholz 63.0 % FS 34.20 % LV EDV (Teich) 113.4 mL LV ESV (Teich) 41.9 mL M-Mode TAPSE 2.47 cm (M/F) >1.7 Auto EF LV EDV A4C 112.6 mL LV EDV A2C 116.0 mL LV EDV BP 113.1 mL LV ESV A4C 43.6 mL LV ESV A2C 50.7 mL LV ESV BP 46.8 mL LVEF(%) A4C 61.3 % LVEF(%) A2C 56.3 % LVEF(%) BP 58.6 % LV SV A4C 69.0 ml LV SV A2C 65.3 ml LV SV BP 66.3 ml LV CO A4C 6.3 L/min LV CO A2C 5.1 L/min LV CO BP 5.7 L/min HR A4C 90.69 BPM HR A2C 77.76 BPM LV EDV Index (BP) LV Strain Long Pk Overal Avg (s) 15.98 LA Volume LA Length A4C 4.8 cm LA Length A2C 4.4 cm LA Area A4C s 14.55 cm2 LA Area A2C s 16.65 cm2 LA Vol A4C A-L 37.66 mL LA Vol A2C A-L 53.10 mL LA Vol Biplane A-L 46.4 mL LA Vol/BSA A4C A-L LA Vol/BSA A2C A-L LA Vol/BSA BP A-L 21.7 mL/m2 LA Vol A4C MOD 35.2 mL LA Vol A2C MOD 50.0 mL LA Vol BP MOD 43.4 mL RA Volume RA Area A4C 11.7 cm2 RA ESV A4C (A-L) 27.6mL RA Vol/BSA A4C A-L RA Length A4C 4.2 cm RA ESV A4C (MOD) 25.8mL LV Diastology MV E' medial 0.103 (>0.07 m/s) MV E Vmax 1.03 (0.4-1.3 m/s) MV E/E' MED 10.00 (<14) MV A Vmax 0.90 (0.4-1.3 m/s) MV E' lateral 0.129 (>0.1 m/s) E/A Ratio 1.1 MV E/E' LAT 7.99 (<14) MV E' Average 0.116 m/s MV E/E'(average) 8.88 Aortic Valve AoV Vmax 1.65 m/s LVOT Vmax 1.23 m/s AoV Peak Grad 10.9 mmHg LVOT Peak Grad 6.1 mmHg AoV Area (Vmax) 2.26 cm2 LVOT VTI 0.236 m AoV VTI 0.329 m LVOT Mean Grad 3.7 mmHg AoV Mean Jesus. 1.17 m/s LVOT SV 71.49 mL AoV Mean Grad 6.2 mmHg LVOT Diam s 1.95 cm AoV Area (VTI) 2.18 cm2 Velocity Ratio 0.75 Mitral Valve MV DT 229 (160-240 msec) MV Vmax TIPS 1.14 m/s MV Mean Grad 2.7 (<2mmHg) MV VTI 0.247 m Pulmonary Valve PV Vmax 1.03 (0.5-1.5 m/s) RVOT Vmax 0.89 m/s PV Peak Grad 4.2 mmHg RVOT Peak Gr. 3.2 mmHg PV Mean Jesus 0.73 m/s RVOT VTI 0.185 m PV Mean Grad 2.4 mmHg RVOT Mean Gr. 1.8 mmHg Tricuspid Valve TV S' 0.16 m/s
== END ==
PROVIDERS: PCP Nurse Practitioner Family; Visit Provider Nurse Practitioner Family
DX: R55 Syncope and collapse (principal)
CPT/HCPCS: 93306

== ENCOUNTER → 2023-06-15 04:34 | Outpatient (CLI) | payer MEDICAID, SELFPAY ==
--- NOTE | 2023-06-15 07:07 | DI.US_ITS ---
Exam(s) US OB 2-3 TRIMESTER EXAM: US OB 2-3 TRIMESTER CLINICAL HISTORY: ,Z34.90. TECHNIQUE: Transabdominal obstetrical ultrasound was performed. COMPARISON: US US ECHOCARDIOGRAM from 05/15/2023 FINDINGS: There is a single viable intrauterine gestation with cardiac activity identified-141 bpm. Amniotic fluid: There is a normal amount of amniotic fluid. Placental location: The placenta is anterior grade 1,with no evidence of placenta previa.Distance fro m tip of placenta to the internal cervical os is 6 cm on today's study. ANATOMY: A 3 vessel umbilical cord is seen. A four-chamber cardiac view was obtained. Right and left ventricular outflow tracts were imaged. There are no obvious abnormalities of the spinal column evident. There is no obvious abnormal ity of the anterior abdominal wall. stomach and urinary bladder are identified and there is no evidence of hydronephrosis. No abnormalities of the upper lip region are identified. No evidence of choroid plexus cysts i n the brain. Dating parameters place this at approximately 20 weeks gestational age. BPD measures 20 weeks and 1 day HC measures 20 weeks and 0 days AC measures 20 weeks and 0 days FL measures 20 weeks and 0 days Estimated weight is 328 gm-0 pounds 12 ounces Fetus is at the 47th percentile on the Hadlock scale. IMPRESSION:: Single viable intrauterine gestation which is approximately 20 gestational age, implyin g an GEORGETTE of 11/02/2023. There are no obvious anomalies evident on today's study. The placenta is anterior with no evidence of placenta previa. There is a normal amount of amniotic fluid. DATA REPOSITORY:
== END ==
PROVIDERS: PCP Nurse Practitioner Family; Visit Provider Advanced Practice Midwife
DX: Z34.92 Encounter for supervision of normal pregnancy, unspecified, second trimester (principal); Z3A.20 20 weeks gestation of pregnancy
CPT/HCPCS: 76805

== ENCOUNTER 2023-07-17 14:23 | Outpatient (CLI) | payer MEDICAID, SELFPAY ==
[2023-07-17 14:23] LABS: Abs Immature Grans 0.03 10^3/uL (0.0-0.06); Absolute Basophil Count 0.03 10^3/uL (0.0-0.2); Absolute Eosinophil Count 0.06 10^3/uL (0.0-0.7); Absolute Lymphocyte Count 1.48 10^3/uL (1.2-3.4); Basophils % 0.3; Eosinophils % 0.6; HCT 35.9 % (36.0-46.0); HGB 12.4 g/dL (11.2-15.7); Immature Grans % 0.3; Lymphocytes % 15.4; MCH 29.8 pg (27.0-33.0); MCHC 34.5 % (32.0-36.0); MCV 86 fL (80-95); MPV 9.2 fL (8.0-11.0); Monocytes % 5.2; Neutrophils % 78.2; Platelet Count 316 10^3/uL (130-400); RBC 4.16 10^6/uL (3.93-5.22); RDW 12.4 % (11.7-14.6)
[2023-07-17 16:05] LABS: ALT 25 U/L (14-59); AST 15 U/L (15-37); Albumin 2.8 g/dL (3.4-5.0); Alkaline Phosphatase 78 U/L (46-116); Amylase 53 U/L (25-115); Anion Gap 10.2 mmol/L (3-11); BUN 9 mg/dL (7-18); Bilirubin, Total 0.3 mg/dL (0.2-1.0); CO2 23.8 mmol/L (21.0-32.0); CREATININE 0.5 mg/dL (0.55-1.02); Calcium 8.5 mg/dL (8.5-10.1); Chloride 105 mmol/L (98-107); Estimated GFR 129.32 (mL/min/1.73m2); Glucose 100 mg/dL (74-106); Lipase 39 U/L (16-77); Sodium 139 mmol/L (136-145); Total Protein 6.8 g/dL (6.4-8.2)
== END 2023-07-17 14:24 | disposition home or self-care (01) ==
LOC: LBO 14:24
PROVIDERS: PCP Nurse Practitioner Family; Visit Provider Advanced Practice Midwife
DX: R19.4 Change in bowel habit (principal); Z87.59 Personal history of other complications of pregnancy, childbirth and the puerperium; R10.11 Right upper quadrant pain; Z34.93 Encounter for supervision of normal pregnancy, unspecified, third trimester
CPT/HCPCS: 36415; 80053; 83690; 82150; 85025

== ENCOUNTER → 2023-07-24 00:22 | Outpatient (CLI) | payer MEDICAID, SELFPAY ==
--- NOTE | 2023-07-24 06:45 | DI.US_ITS ---
Exam(s) US ABDOMEN EXAM: US ABDOMEN CLINICAL HISTORY: RUQ pain x1 wk, pale unformed stools,?gallstones,appendix or liver abnl TECHNIQUE: Ultrasound abdomen performed using standard protocol. COMPARISON: CT RENAL COLIC WO CONTRAST from 07/24/2017 FINDINGS: ABDOMINAL AORTA AND IVC: Visualized portions normal caliber. PANCREAS: Normal where visualized. LIVER: Normal. Hepatopetal flow in the Portal Vein. The liver measures 16.9 cm long. GALLBLADDER:There are a few small shadowing echogenic foci in the gallbladder suspicious for stones. No evidence of wall thickening. No pericholecystic fluid identified. BILIARY SYSTEM: Common bile duct measures < 7 mm. No intrahepatic biliary ductal dilation. SEGOVIA'S SIGN: Negative. KIDNEYS: Kidneys are symmetric in size. No evidence of renal calculi. No evidence of hydronephrosis. No renal mass or cyst identified. SPLEEN: Not enlarged. ASCITES: None seen. Note is made of an intrauterine gestation. A few nondiagnostic images of the fetus were obtained as evidence of its presence. The right lower quadrant was evaluated sonographically. No sonographic findings to suggest an append icitis are present. IMPRESSION: Cholelithiasis. No biliary ductal dilatation. No findings to suggest acute cholecystitis. DATA REPOSITORY:
== END ==
PROVIDERS: PCP Nurse Practitioner Family; Visit Provider Advanced Practice Midwife
DX: R10.11 Right upper quadrant pain (principal); K80.20 Calculus of gallbladder without cholecystitis without obstruction; R19.5 Other fecal abnormalities; R19.4 Change in bowel habit; Z33.1 Pregnant state, incidental
CPT/HCPCS: 76700

== ENCOUNTER 2023-08-01 10:24 | Outpatient (CLI) | payer MEDICAID, SELFPAY ==
[2023-08-01 10:56] VITALS: BP 124/77; PULSE 113; TEMP 36.8
[2023-08-01 10:59] VITALS: BP 124/77; PULSE 113
--- NOTE | 2023-08-01 12:42 | W.OBNST ---
Date of service: 08/01/23 Time of Service: 11:20 NST Evaluation Reason for NST Reasons for Nonstress Test: OTHER, SEE COMMENT (CAMPBELL and history of pre-eclampsia X 2) Gestational Age Gestational Age in Weeks and Days: 26 Weeks and 5Days Test and Monitor Explained Test/Monitor Explained: Test Explained and Monitor Explained Vital Signs Blood Pressure: 124/77 Pulse: 113 Temperature: 98.2 F Urine Results Urine Protein: Negative Urine Ketones: Negative Urine Glucose: Negative Urine Blood: Negative NST Information Date on Monitor: 08/01/23 Time on Monitor: 10:52 Date off Monitor: 08/01/23 Time off Monitor: 11:26 Total Time on Monitor: 34 NST Interventions: None NST Evaluation Patient States Movement: Present FHR Baseline: 145 Variability: Moderate 6-25 bpm Accelerations: 10x10 Decelerations: None NST Results: Reactive Note Ultrasound Done: N/A. NST Note Note: Urine protein is negative. NST is reassuring. BP stable and Hasmukh was reassured. Plans to do 24 hour urine for protein and creatinine clearance plus CMP/CBC and 1 hour GTT at next office visit. Given supplies today to collect urine starting day before her appointment. She was planning to do home BG monitoring but has now decided to do 1 hour GTT instead. MAMTA NST Reviewed and Verified by: Jes Machado
[2023-08-01 12:44] VITALS: BP 124/77; PULSE 113; TEMP 36.8
== END 2023-08-01 11:30 | disposition home or self-care (01) ==
LOC: BCD 10:25 → OBS 10:42
PROVIDERS: PCP Nurse Practitioner Family; Visit Provider Advanced Practice Midwife
DX: O09.292 Supervision of pregnancy with other poor reproductive or obstetric history, second trimester (principal); R51.9 Headache, unspecified; Z3A.26 26 weeks gestation of pregnancy
CPT/HCPCS: 59025

== ENCOUNTER 2023-08-14 01:58 | Outpatient (CLI) | payer MEDICAID, SELFPAY ==
[2023-08-14 11:47] LABS: HCT 35.3 % (36.0-46.0); HGB 12.4 g/dL (11.2-15.7); MCH 30.2 pg (27.0-33.0); MCHC 35.1 % (32.0-36.0); MCV 86 fL (80-95); MPV 9.6 fL (8.0-11.0); Platelet Count 312 10^3/uL (130-400); RBC 4.11 10^6/uL (3.93-5.22); RDW 12.3 % (11.7-14.6); RDW-SD 38.4 fL; WBC 7.79 10^3/uL (4.4-10.8)
[2023-08-14 12:26] LABS: Glucose,1 Hr (Glucola) 75 mg/dL (80-140)
[2023-08-14 12:38] LABS: ALT 25 U/L (14-59); AST 14 U/L (15-37); Albumin 2.7 g/dL (3.4-5.0); Alkaline Phosphatase 85 U/L (46-116); Amylase 51 U/L (25-115); Anion Gap 8.9 mmol/L (3-11); BUN 8 mg/dL (7-18); Bilirubin, Total 0.3 mg/dL (0.2-1.0); CO2 24.1 mmol/L (21.0-32.0); CREATININE 0.5 mg/dL (0.55-1.02); Calcium 8.6 mg/dL (8.5-10.1); Chloride 104 mmol/L (98-107); Estimated GFR 129.32 (mL/min/1.73m2); Glucose 75 mg/dL (74-106); Lipase 35 U/L (16-77); Sodium 137 mmol/L (136-145); Total Protein 6.6 g/dL (6.4-8.2)
== END 2023-08-14 01:59 | disposition home or self-care (01) ==
LOC: LBO 01:58
PROVIDERS: PCP Nurse Practitioner Family; Visit Provider Advanced Practice Midwife
DX: O09.293 Supervision of pregnancy with other poor reproductive or obstetric history, third trimester (principal); R19.4 Change in bowel habit; R10.11 Right upper quadrant pain; Z3A.28 28 weeks gestation of pregnancy
CPT/HCPCS: 36415; 80053; 82950; 83690; 85027; 82150

== ENCOUNTER 2023-08-14 10:21 | Outpatient (REF) | payer MEDICAID, SELFPAY ==
[2023-08-14 12:45] LABS: Creatinine,Urine 21.38 mg/dL
[2023-08-14 12:46] LABS: PROTEIN < 6.0 mg/dL (0.0-11.9)
[2023-08-14 12:47] LABS: Creatinine,24hr Ur 2.29 g/24hr (0.60-1.80); Total Volume 10700 ml
[2023-08-14 16:52] LABS: Lab Add On Test DONE
[2023-08-14 19:24] LABS: Creatinine,Urine 22.14 mg/dL; POTASSIUM,URINE RANDOM 11.5 mmol/L; Sodium, Urine 79 mmol/L
[2023-08-14 19:28] LABS: CLEAVED CELLS 845 mmol/24h (40-220); Creatinine,24hr Ur 2.37 g/24hr (0.60-1.80); SAMPLE LIPEMIA CHECK 10700 ml; Total Volume 10700 ml
[2023-08-15 22:01] LABS: Chloride Urine 24hr 824 mmol/24hrs (110-250); Osmolality, Urine 298 mOsm/kg (150-1150); Timed Urine Volume 10700 mL
[2023-08-15 22:05] LABS: Timed Urine Volume 10700 mL; Urea Nitrogen Random Urine 317 mg/dL (See Note); Urean Nitrogen Urine 24hr 34 g/24hrs (12-20)
== END 2023-08-14 10:22 | disposition home or self-care (01) ==
LOC: LBN 10:21
PROVIDERS: Obstetrics & Gynecology Gynecology; PCP Nurse Practitioner Family; Visit Provider Advanced Practice Midwife
DX: O09.293 Supervision of pregnancy with other poor reproductive or obstetric history, third trimester; O09.893 Supervision of other high risk pregnancies, third trimester; R35.89 Other polyuria; Z3A.28 28 weeks gestation of pregnancy
CPT/HCPCS: 83935; 81050; 82436; 82570; 84133; 84155; 84300; 84540; 87086

== ENCOUNTER → 2023-08-18 04:34 | Outpatient (CLI) | payer MEDICAID, SELFPAY ==
--- NOTE | 2023-08-18 07:45 | DI.US_ITS ---
Exam(s) US RENAL EXAM: US RENAL CLINICAL HISTORY: Right flank pain,R10.9. TECHNIQUE: Cano scale, color and spectral Doppler were used. COMPARISON: US US ABDOMEN from 07/24/2023 FINDINGS: Right kidney: 11.5cm Echogenicity: Normal Hydronephrosis: No Cyst or mass: No Nephrolithiasis: No Left kidney: 12.5 cm Echogenicity: Normal Hydronephrosis: No Cyst or mass: No Nephrolithiasis: No Bladder:Normal. Prevoid vol:449 cc Postvoid vol: 0 cc head noted. IMPRESSION: Negative renal ultrasound. DATA REPOSITORY:
== END ==
PROVIDERS: PCP Nurse Practitioner Family; Visit Provider Advanced Practice Midwife
DX: R10.9 Unspecified abdominal pain (principal)
CPT/HCPCS: 76770

== ENCOUNTER 2023-08-24 16:06 | Outpatient (CLI) | payer MEDICAID, SELFPAY ==
[2023-08-24 16:52] VITALS: BP 133/81; PULSE 85; TEMP 36.6
[2023-08-24 18:09] VITALS: BP 133/81; PULSE 85
--- NOTE | 2023-08-24 18:14 | W.OBNST ---
Date of service: 08/24/23 Time of Service: 18:14 NST Evaluation Reason for NST Reasons for Nonstress Test: OTHER, SEE COMMENT Reason for NST Other: Painful Contractions Gestational Age Gestational Age in Weeks and Days: 30 Weeks and 0Days Test and Monitor Explained Test/Monitor Explained: Test Explained and Monitor Explained Vital Signs Blood Pressure: 133/81 Pulse: 85 Temperature: 97.9 F Urine Results Urine Protein: Negative Urine Ketones: Positive Urine Glucose: Negative Urine Blood: Negative NST Information Date on Monitor: 08/24/23 Time on Monitor: 16:52 Date off Monitor: 08/24/23 Time off Monitor: 18:10 Total Time on Monitor: 78 NST Interventions: PO Hydration NST Evaluation Patient States Movement: Present FHR Baseline: 144 Variability: Moderate 6-25 bpm Accelerations: 15x15 Decelerations: None NST Results: Reactive Note Ultrasound Done: N/A. NST Note Note: ketonuria & uterine irritability, resolved with a glass of apple juice, no vomiting Cvx closed/thick, no presenting part in pelvis F/up as scheduled and prn NST Reviewed and Verified by: Nona Dutta
[2023-08-24 18:15] VITALS: BP 133/81; PULSE 85; TEMP 36.6
[2023-08-25 07:19] VITALS: BP 111/71; PULSE 83
== END 2023-08-24 18:10 | disposition home or self-care (01) ==
LOC: BCD 16:08 → OBS 16:43
PROVIDERS: PCP Nurse Practitioner Family; Visit Provider Advanced Practice Midwife
DX: O47.03 False labor before 37 completed weeks of gestation, third trimester (principal); Z3A.30 30 weeks gestation of pregnancy
CPT/HCPCS: 59025

== ENCOUNTER 2023-09-03 12:13 | Outpatient (CLI) | payer MEDICAID, SELFPAY ==
[2023-09-03 12:46] VITALS: BP 139/96; PULSE 117; TEMP 36.7
[2023-09-03 12:48] VITALS: BP 139/96; PULSE 117
[2023-09-03 13:15] VITALS: BP 147/92; PULSE 110
[2023-09-03 13:24] LABS: HCT 35.9 % (36.0-46.0); HGB 12.3 g/dL (11.2-15.7); MCH 29.4 pg (27.0-33.0); MCHC 34.3 % (32.0-36.0); MCV 86 fL (80-95); MPV 9.3 fL (8.0-11.0); Platelet Count 319 10^3/uL (130-400); RBC 4.19 10^6/uL (3.93-5.22); RDW 12.3 % (11.7-14.6); RDW-SD 38.4 fL; WBC 9.63 10^3/uL (4.4-10.8)
[2023-09-03 13:43] LABS: ALT 26 U/L (14-59); AST 15 U/L (15-37); Albumin 2.6 g/dL (3.4-5.0); Alkaline Phosphatase 96 U/L (46-116); BUN 6 mg/dL (7-18); Bilirubin, Total 0.3 mg/dL (0.2-1.0); CREATININE 0.6 mg/dL (0.55-1.02); Calcium 8.8 mg/dL (8.5-10.1); Chloride 105 mmol/L (98-107); Estimated GFR 123.76 (mL/min/1.73m2); Glucose 128 mg/dL (74-106); LDH 150 U/L (81-234); Potassium 3.8 mmol/L (3.5-5.1); Sodium 139 mmol/L (136-145); Total Protein 6.5 g/dL (6.4-8.2)
[2023-09-03 13:59] VITALS: BP 127/85; PULSE 101
[2023-09-03 14:01] LABS: PROTEIN < 6.0 mg/dL
[2023-09-03 14:03] LABS: COMMENT (LAB VIEW ONLY) < 13.00 mg/dL
--- NOTE | 2023-09-03 14:20 | W.OBNST ---
Date of service: 09/03/23 Time of Service: 14:20 NST Evaluation Reason for NST Reasons for Nonstress Test: OTHER, SEE COMMENT Reason for NST Other: Dizzy, headache, vision changes, not feeling well Gestational Age Gestational Age in Weeks and Days: 31 Weeks and 4Days Test and Monitor Explained Test/Monitor Explained: Test Explained and Monitor Explained Vital Signs Blood Pressure: 139/96 Pulse: 117 Temperature: 98.1 F Urine Results Urine Protein: Negative Urine Ketones: Negative Urine Glucose: Negative Urine Blood: Negative NST Information Date on Monitor: 09/03/23 Time on Monitor: 12:44 Date off Monitor: 09/03/23 Time off Monitor: 14:01 Total Time on Monitor: 77 NST Interventions: PO Hydration NST Evaluation Patient States Movement: Absent FHR Baseline: 145 Variability: Moderate 6-25 bpm Accelerations: 10x10 Decelerations: None NST Results: Reactive Note Ultrasound Done: N/A. NST Note Note: Reviewed BP's and tracing with Dr. Brown who agrees with CNM plan to have patient return in 24 hours for repeat NST and possibly labs if indicated with BP check. Will consider medications if BP remains elevated tomorrow. CMP and CBC WNL today and urine pro/creat uncalculated. BP decreased when resting.Patient is aware of signs of pre-eclampsia and when to call. She feels good with this plan of care and will return 09/04/23. NST Reviewed and Verified by: Jes Machado
[2023-09-03 14:24] VITALS: BP 139/96; PULSE 117; TEMP 36.7
== END 2023-09-03 14:05 | disposition home or self-care (01) ==
LOC: BCD 12:13 → OBS 12:45
PROVIDERS: PCP Nurse Practitioner Family; Visit Provider Advanced Practice Midwife
DX: O16.3 Unspecified maternal hypertension, third trimester (principal); Z3A.31 31 weeks gestation of pregnancy
CPT/HCPCS: 59025; 80053; 85027; 82565; 83615; 84156

== ENCOUNTER 2023-09-04 07:30 | Outpatient (CLI) | payer MEDICAID, SELFPAY ==
[2023-09-04] VITALS (28 sets, daily range): BP systolic 95–181; BP diastolic 52–103; PULSE 102–126; RESP 16–18; TEMP 36.6–36.8; O2SAT 95–99
[2023-09-04 10:07] LABS: HGB 12.2 g/dL (11.2-15.7); MCH 29.5 pg (27.0-33.0); MCHC 33.9 % (32.0-36.0); MCV 87 fL (80-95); MPV 9.5 fL (8.0-11.0); Platelet Count 285 10^3/uL (130-400); RBC 4.14 10^6/uL (3.93-5.22); RDW 12.4 % (11.7-14.6); RDW-SD 39.2 fL; WBC 7.56 10^3/uL (4.4-10.8)
[2023-09-04] MEDS: NIFEdipine 10 MG CAP 20 MG PO (10:15)
[2023-09-04 10:23] LABS: COMMENT (LAB VIEW ONLY) 95.91 mg/dL; PROTEIN 15.3 mg/dL; Prot/Crea Ur Ratio 0.15
[2023-09-04 10:24] LABS: ALT 23 U/L (14-59); AST 15 U/L (15-37); Albumin 2.5 g/dL (3.4-5.0); Alkaline Phosphatase 95 U/L (46-116); Anion Gap 11.1 mmol/L (3-11); BUN 7 mg/dL (7-18); Bilirubin, Total 0.4 mg/dL (0.2-1.0); CO2 21.9 mmol/L (21.0-32.0); CREATININE 0.6 mg/dL (0.55-1.02); Calcium 8.7 mg/dL (8.5-10.1); Chloride 106 mmol/L (98-107); Estimated GFR 123.76 (mL/min/1.73m2); Glucose 114 mg/dL (74-106); Potassium 4.1 mmol/L (3.5-5.1); Sodium 139 mmol/L (136-145); Total Protein 6.4 g/dL (6.4-8.2)
--- NOTE | 2023-09-04 10:33 | W.PM.OBHPL1 ---
Date of service: 09/04/23 Time of Service: 10:33 Assessment and Plan Assessment and plan (1) Gestational hypertension without significant proteinuria during in third trimester, antepartum: Status: Acute Assessment and plan: A: 28 yo @ 31+4 wks, no labor Severe range BP with severe features (dizziness, lightheadedness, visual disturbance) Labs repeated today, CMP, CBC and urine prot/creat are nml NST in progress, breech presentation per abd scan P: Nifedipine 20 mg PO immediate release Consultation with Dr. Arreola: request transfer to [facility] requests we transfer to [facility] if possible Initiate IV access, celestone 12 mg IM Awaiting acceptance for transfer to tertiary care EFM and BP's q15 min (2) Cholelithiasis during : Status: Acute (3) Hx of pre-eclampsia in prior , currently : Status: Acute OB-HPI Labor/Delivery History of Present Illness Reason for Visit: NST Chief Complaint: Other (follow-up appt in for BP check, mild elevation yesterday with nml labs then). GEORGETTE Calculator Estimated Delivery Date Method Current WG Current Estimate 11/02/23 Ultrasound #1 31w 4d Other Estimates 10/18/23 LMP (Uncertain) 33w 5d Comments: Pt seen yesterday History of Present Expected Delivery Route/Plan - CNM FOB/partner - Hong Brooke (first baby together, 2 previous daughters) BB undecided about circ Specific Issues/Plan 1. Hx of IUGR and Preeclampsia with IOL at 35 & 36 wks, low dose ASA recommended. 1a. Labs @ 28 wks: 24 hr protein too low to calc, CMP, CBC, amylase, lipase all nml 2. Panorama LR male, CF neg in 2017, discuss and offer AFP, declined 3. History of baby with GBS septicemia at 3 months of age 4. BMI 32- early GTT 72; 28 wk glucola-75 5. Anxiety and panic attacks - uses a weighted blanket and meditation 6. Heart murmur - referred to PCP 7. Vascular symptoms lower legs 2018 and no definitive diagnosis- seen at [facility] rheumatology 8. UDS+ opiates on initial, had poppy seeds on a bagel, will repeat test which was neg. fentanyl=neg 9. Growth US at 32 and 36 weeks ordered. Plan NST's at 32 weeks 10. RUQ pain, mild-mod, x1 wk @ 24 wks, abd scan shows cholelithiasis, advised low fat diet, imodium daily. 11. Right flank pain - neg urine culture, renal US done 08/18/23=nml Assessment: History Reviewed & Current Review of Systems Constitutional Comments: Feeling unwell since yesterday, reports dizziness and lightheadedness Eyes Comments: pt reports her vision is off PFSH All Active Problems (Updated 09/04/23 @ 11:02 by Nona Dutta) Gestational hypertension without significant proteinuria during in third trimester, antepartum (Acute) Cholelithiasis during (Acute) History of delivery, currently (Acute) Polyuria (Acute) Frequent bowel movements (Acute) Pale feces (Acute) Heart murmur (Acute) Body mass index [BMI] 32.0-32.9, adult (Acute) (Acute) Hx of pre-eclampsia in prior , currently (Acute) Required induction of labor-magnesium sulfate infusion, IUGR. Medical History (Updated 09/04/23 @ 11:02 by Nona Dutta) History of hyperemesis gravidarum Right flank pain RUQ abdominal pain Family history of diabetes mellitus in father care, subsequent Positive urine drug screen Raynauds disease History of PCOS History of panic disorder (07/15/17) Irritable bowel syndrome Family hx-breast malignancy Anxiety (12/08/16) Cervical high risk HPV (human papillomavirus) test positive (04/28/17) Surgical History repair of right wrist injury Family History (Updated 04/20/23 @ 09:40 by Jes Fong CNM) Mother Breast cancer Maternal Aunt Breast cancer Anxiety Maternal Aunt Breast cancer Anxiety Maternal Aunt Anxiety Maternal Grandmother Rheumatoid arthritis Maternal Grandfather Congestive heart disease Social History Smoking/Tobacco Use Status: Former Tobacco Use Smoking risk assessment performed?: Yes Alcohol Intake: never Drug use: Never Substance use type: does not use Household members: children Number of Children: 2 Education Level: college current occupation: Work on [employer]. 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 Female Reproductive History Menstrual control method: condoms History History 5 Para 2 Hx # Term Pregnancies 0 Multiple births 0 Hx # Pregnancies 2 Ectopic pregnancies 0 AB induced 2 Hx Number of Living Children 2 AB spontaneous 0 Past Pregnancies Del. Date GA/Weeks # Preg Succ Route Wgt Sex Labor Lgth Anesthesia Location Prov Complic 06/26/17 35 No vaginal 4 lb 6 oz Male 24 hrs Katherine Delude, CNM 11/12/18 36 No vaginal 7 lb Female 5 hrs 4 min Perri Dutta CNM Delivery Date: 06/26/17 Last Updated by: Nona MORAN preeclampsia & IUGR, required Mag., anti-hypertensive Rx for 2 mo's PP. Aly, late onset GBS @ 2-3 mo's, has autism Delivery Date: 11/12/18 Last Updated by: Nona Dutta IOL w/miso due to pre-eclampsia, no Mag needed. GBS neg. Marcela Meds Allergies and Home Medications Allergies Allergy/AdvReac Type Severity Reaction Status Date / Time trimethobenzamide Allergy Severe dystonic Verified 08/28/23 12:49 reaction codeine Allergy Unknown Can't Verified 08/28/23 12:49 breath metoclopramide [From Reglan] AdvReac Severe Akathesia Verified 08/28/23 12:49 promethazine [From Phenergan] AdvReac Severe Agitation Verified 08/28/23 12:49 Home Medications Medication Instructions Recorded Confirmed Type acetaminophen 325 mg tablet 1,000 mg PO PRN 06/24/17 08/28/23 History (Tylenol) vitamin no.180-ferrous 1 tab PO DAILY #90 tabs 02/26/23 08/28/23 Rx fumarate 27 mg-folic acid 1 mg tablet ( Plus Vitamin-Mineral) aspirin 81 mg tablet,delayed 81 mg PO DAILY #45 tabs 04/20/23 08/28/23 Rx release loperamide 2 mg capsule 2 mg PO Q4H PRN loose stool #10 07/03/23 08/28/23 Rx caps alcohol swabs (Alcohol Wipes) 1 pad topical QID #100 ea 07/17/23 08/28/23 Rx blood sugar diagnostic (FreeStyle #100 ea 07/17/23 08/28/23 Rx Lite Strips) blood-glucose meter (FreeStyle #1 07/17/23 08/28/23 Rx Lite Meter kit) lancets 28 gauge (FreeStyle #100 07/17/23 08/28/23 Rx Lancets) Exam Physical Exam Vital signs: Pulse BP 102 H 147/91 H 09/04/23 10:25 09/04/23 10:30 Vital Signs Reviewed: Yes Narrative: Severe range BP treated with nifedipine IR 20 mg PO Constitutional Constitutional: no acute distress, obese and cooperative Detailed Labor and Delivery Exam Monson Score: Cervical Points Exam 0 1 2 3 Dilation Closed 1-2cm 3-4 cm 5-6cm Effacement 0-30% 40-50% 60-70% 80% Consistency Firm Medium Soft Station -3 -2 -1,0 +1,+2 Position Posterior Mid Anterior Fetus A Presentation: Breech (head in LUQ, back on left) HEENT Exam HEENT Exam: Normal Neck Exam Neck Exam: Normal Chest/Brest/Axilla Exam Chest Exam: Normal Breast Exam Breast Exam: Not Done Respiratory Exam Respiratory Exam: Normal Cardiovascular Exam Cardiovascular Exam: Normal Abdominal Exam Abdominal Exam: Normal (gravid, S=D, breech confirmed with transabdominal ultrasound) Extremities Exam Extremities Exam: Abnormal (+1 pedal edema, normoreflexic) Back/Spine/Pelvis Exam Back Exam: Normal Pelvis Adequate: Yes Skin Exam Skin Exam: Normal Neurological Exam Neurological Exam: Normal (negative pedal and patellar reflexes) Psychiatric Exam Psychiatric Exam: Normal Results Results Group Beta Strep: Not Done Blood Type: A+ Rubella Status: Immune Varicella Immunity: Immune Abnormal Lab Findings: Abnormal Labs 09/04/23 09:55 Anion Gap 11.1 H Glucose 114 H Albumin 2.5 L Risk Assessment Risk for Shoulder Dystocia Historical/Initial OB: NEGATIVE FOR: Pelvic Abnormality, Pre- BMI>30, Previous Shoulder Dystocia or Previous Macrosomia Risk for Pre-Eclampsia Date Initiated/Initials: started at 12 wks, KM Yes, if one or more: POSTIVE FOR: Hx Pre-E/Gest HTN; NEGATIVE FOR: Chronic HTN, Multiple Gestation, Pre-gestational DM, Renal Disease, Systemic Lupus or APA Syndrome Yes, if 2 or more: POSITIVE FOR: BMI>30; NEGATIVE FOR: Nulliparity, Age>= 35 yrs, >10yr btwn pregnancies, ethinicty, Mother/Sister w/ Pre-E or Previous IUGR Risk for Post- Hemorrhage Initial: NEGATIVE FOR: Multiple Gestation, Previous PPH, Known Clotting Deficiency, Grand Multiparity or Anticoagulation Risks Reviewed Risks Reviewed Upon Admission: Yes
[2023-09-04] MEDS: Betamet Acet/Betamet Na Ph Inj. 30 MG/5 ML 12 MG IM (10:57)
--- NOTE | 2023-09-04 11:35 | OBCE_ITS ---
Date of service: 09/04/23 Time of Service: 11:35 Assessment and Plan Assessment and plan (1) : Status: Acute Assessment and plan: Patient is at 31 weeks and 4 days. She has a significant history for preeclampsia with previous pregnancies, with previous 36 and 34-week delivery respectively. She had in the past, use magnesium sulfate for seizure prophylaxis, and also had corticosteroids for lung maturity. She has been followed throughout the course of this and monitored for hypertension. She presents today with severe range blood pressures which responded to a single dose of nifedipine. In light of her significant history, and her current presentation, recommendation is for evaluation and stabilization at tertiary care facility with the possibility of delivery if warranted. As of note, patient's also had significant urine output with polyuria. Today's urine protein creatinine ratio is 0.15 which is increased from her previous undetectable protein due to marked volumes of urinary output. There may be some underlying renal issues. We are awaiting return call from the [facility]. [facility] has accepted her transfer, if there is no other facility due to capacity limitations. All of these findings were discussed with the patient, and her partner. She is accepting of transfer of care and very understanding of her current situation and are [facility]. All questions answered (2) Hx of pre-eclampsia in prior , currently : Status: Acute (3) History of delivery, currently : Status: Acute (4) Polyuria: Status: Acute History of Present Illness History of Present Illness Chief Complaint: Hypertension Narrative: Patient is a 28-year-old female well-known to our service, under the care of of midwives who is currently 31 weeks and 4 days. She has a significant history of preeclampsia in previous pregnancies including a 36-week delivery followed by a 34-week delivery with a small for gestational age . Second was delivered while on magnesium sulfate. During this , she has been monitored carefully. Over the course of the past 24 to 48 hours she has had worsening symptoms which include visual changes, head fullness, nausea, vomiting, and a patient reported increase in her lower extremity edema. On presentation today in follow-up, she had severe range blood pressure and received nifedipine. In light of this, and her significant history, the recommendation by us would be transferred to a tertiary care center for stabilization of blood pressure, and possible delivery if warranted. She will receive her first dose of betamethasone for maturity. All questions were answered. Call placed to [facility] per our midwives who would accept transfer, however also recommended the possibility of transfer to the [facility] due to capacity limits at [facility] Consults Consult date: 09/04/23 Requesting physician: Nona Dutta Review of Systems Narrative: Patient reports nausea and vomiting, head fullness with low-grade cephalgia, lower extremity edema. Baby's been moving and active. Eyes Eyes: Reports system reviewed and no additional complaints, except as documented and Denies loss of vision ENT Ears, Nose, Mouth, and Throat: Reports system reviewed and no additional complaints, except as documented and Reports dizziness Cardiovascular Cardiovascular: Reports system reviewed and no additional complaints, except as documented, Denies chest pain, Denies syncope and Denies irregular heart rhythm Respiratory Respiratory: Reports system reviewed and no additional complaints, except as documented, Denies chest congestion and Denies cough Gastrointestinal Gastrointestinal: Reports as per HPI, Denies abdominal pain, Reports nausea and Reports vomiting Musculoskeletal Musculoskeletal: Denies numbness Neurologic Neurologic: Reports as per HPI, Denies abnormal speech, Reports dizziness, Denies syncope, Denies loss of vision, Denies memory loss and Denies numbness Psychiatric Psychiatric: Denies memory loss PFSH All Active Problems (Updated 09/04/23 @ 11:02 by Nona Dutta) Gestational hypertension without significant proteinuria during in third trimester, antepartum (Acute) Cholelithiasis during (Acute) History of delivery, currently (Acute) Polyuria (Acute) Frequent bowel movements (Acute) Pale feces (Acute) Heart murmur (Acute) Body mass index [BMI] 32.0-32.9, adult (Acute) (Acute) Hx of pre-eclampsia in prior , currently (Acute) Required induction of labor-magnesium sulfate infusion, IUGR. Medical History (Updated 09/04/23 @ 11:02 by Nona Dutta) History of hyperemesis gravidarum Right flank pain RUQ abdominal pain Family history of diabetes mellitus in father care, subsequent Positive urine drug screen Raynauds disease History of PCOS History of panic disorder (07/15/17) Irritable bowel syndrome Family hx-breast malignancy Anxiety (12/08/16) Cervical high risk HPV (human papillomavirus) test positive (04/28/17) Surgical History repair of right wrist injury Family History (Updated 04/20/23 @ 09:40 by Jes Fong CNM) Mother Breast cancer Maternal Aunt Breast cancer Anxiety Maternal Aunt Breast cancer Anxiety Maternal Aunt Anxiety Maternal Grandmother Rheumatoid arthritis Maternal Grandfather Congestive heart disease Social History Smoking/Tobacco Use Status: Former Tobacco Use Smoking risk assessment performed?: Yes Alcohol Intake: never Drug use: Never Substance use type: does not use Household members: children Number of Children: 2 Education Level: college 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 Female Reproductive History Menstrual control method: condoms History History 2 5 Para 2 Hx # Term Pregnancies 0 Multiple births 0 Hx # Pregnancies 2 Ectopic pregnancies 0 AB induced 2 Hx Number of Living Children 2 AB spontaneous 0 Past Pregnancies Del. Date GA/Weeks # Preg Succ Route Wgt Sex Labor Lgth Anesth esia Location Prov [facility] 06/26/17 35 No vaginal 4 lb 6 oz Male 24 hrs Shu e MANDY Garcia 11/12/18 36 No vaginal 7 lb Female 5 hrs 4 min Les Gar CNM Delivery Date: 06/26/17 Last Updated by: Nona Dutta IOL preeclampsia & IUGR, required Mag., anti-hypertensive Rx for 2 mo's PP. Aly, late onset GBS @ 2-3 mo's, has autism Delivery Date: 11/12/18 Last Updated by: Nona Dutta IOL w/miso due to pre-eclampsia, no Mag needed. GBS neg. Marcela Exam Const General: cooperative, healthy appearing, comfortable, well developed and well groomed Eyes General: appearance normal, both eyes and all related structures Visual Cedillo: normal visual cedillo by confrontation Resp Effort & Inspection: normal respiratory effort, no audible wheezes and no cough Cardio Rate: tachycardic Rhythm: regular rhythm GI Other: Gravid, nontender Neuro General: patient alert, patient oriented x3 and deep tendon reflexes 2+ bilaterally Extrem General: no calf tenderness and edema (1+ bilateral) Results Last Vital Signs Pulse 115 H 09/04/23 11:31 BP 138/89 09/04/23 11:31 Labs 09/04/23 09:55 09/04/23 09:55 Labs: Laboratory Results - last 24 hr 09/04/23 09/04/23 08:38 09:55 WBC 7.56 RBC 4.14 Hgb 12.2 Hct 36.0 MCV 87 MCH 29.5 MCHC 33.9 RDW 12.4 Plt Count 285 MPV 9.5 Sodium 139 Potassium 4.1 Chloride 106 Carbon Dioxide 21.9 Anion Gap 11.1 H BUN 7 Creatinine 0.6 Est GFR (CKD-EPI 2020) 123.76 Glucose 114 H Calcium 8.7 Total Bilirubin 0.4 AST 15 ALT 23 Alkaline Phosphatase 95 Total Protein 6.4 Albumin 2.5 L Ur Random Creatinine 95.91 U Random Total Protein 15.3 U [place] Prot/Creat Ratio 0.15
[2023-09-04] MEDS: Normal Saline Flush 10 ML SYR IVP (12:23)
[2023-09-04] MEDS: MAGNESIUM SULFATE 20 GM/500 ML BAG IV (12:29)
--- NOTE | 2023-09-04 15:01 | W.OBNST ---
Date of service: 09/04/23 Time of Service: 11:00 NST Evaluation Reason for NST Reasons for Nonstress Test: GESTATIONAL HYPERTENSION Gestational Age Gestational Age in Weeks and Days: 31 Weeks and 4Days Test and Monitor Explained Test/Monitor Explained: Test Explained, Monitor Explained and Patient Verbalized Understanding Vital Signs Blood Pressure: 115/52 Pulse: 108 Temperature: 97.9 F Urine Results Urine Protein: Negative Urine Ketones: Negative Urine Glucose: Negative Urine Blood: Negative NST Information Date on Monitor: 09/04/23 Time on Monitor: 12:45 Date off Monitor: 09/04/23 Time off Monitor: 13:05 Total Time on Monitor: 20 NST Interventions: Notify Provider and Other Contraction Frequency: 0 NST Evaluation Patient States Movement: Present FHR Baseline: 145 Variability: Moderate 6-25 bpm Accelerations: 15x15 Decelerations: None NST Results: Reactive Note Ultrasound Done: N/A. NST Note NST Reviewed and Verified by: Nona Dutta
--- NOTE | 2023-09-04 15:16 | W.PM.OBNL1 ---
Date of service: 09/04/23 Time of Service: 15:16 Contractions Monitor Mode: None Fetus A Monitor: External (US) Heart Rate Baseline: 140 Variability: Moderate (6-25 BPM) Categories: Category I FHR Rhythm: Regular Accelerations: 15 X 15 Decelerations: None Amniotic Membrane Status: Intact Assessment and Plan Assessment and plan (1) Gestational hypertension without significant proteinuria during in third trimester, antepartum: Status: Acute Assessment and plan: zofran 4 mg ODT administered prior to transfer due to history of car sickness. magnesium 4 g bolus administered and then 2 g per hour. Discussed plan for magnesium sulfate administration and transfer to [facility] and Hasmukh agrees. Transfer to [facility] via [facility] service. Objective Abnormal lab results 09/04/23 Range/Units 09:55 Anion Gap 11.1 H (3-11) mmol/L Glucose 114 H (74-106) mg/dL Albumin 2.5 L (3.4-5.0) g/dL Temp Pulse Resp BP Pulse Ox 98.2 F 106 H 16 150/54 H 96 09/04/23 14:19 09/04/23 14:19 09/04/23 14:19 09/04/23 14:19 09/04/23 14:19 Laboratory Results WBC 7.56 10^3/uL (4.4-10.8) 09/04/23 09:55 RBC 4.14 10^6/uL (3.93-5.22) 09/04/23 09:55 Hgb 12.2 g/dL (11.2-15.7) 09/04/23 09:55 Hct 36.0 % (36.0-46.0) 09/04/23 09:55 MCV 87 fL (80-95) 09/04/23 09:55 MCH 29.5 pg (27.0-33.0) 09/04/23 09:55 MCHC 33.9 % (32.0-36.0) 09/04/23 09:55 RDW 12.4 % (11.7-14.6) 09/04/23 09:55 Plt Count 285 10^3/uL (130-400) 09/04/23 09:55 MPV 9.5 fL (8.0-11.0) 09/04/23 09:55 Sodium 139 mmol/L (136-145) 09/04/23 09:55 Potassium 4.1 mmol/L (3.5-5.1) 09/04/23 09:55 Chloride 106 mmol/L (98-107) 09/04/23 09:55 Carbon Dioxide 21.9 mmol/L (21.0-32.0) 09/04/23 09:55 Anion Gap 11.1 mmol/L (3-11) H 09/04/23 09:55 BUN 7 mg/dL (7-18) 09/04/23 09:55 Creatinine 0.6 mg/dL (0.55-1.02) 09/04/23 09:55 Est GFR (CKD-EPI 2020) 123.76 (mL/min/1.73m2) 09/04/23 09:55 Glucose 114 mg/dL (74-106) H 09/04/23 09:55 Calcium 8.7 mg/dL (8.5-10.1) 09/04/23 09:55 Total Bilirubin 0.4 mg/dL (0.2-1.0) 09/04/23 09:55 AST 15 U/L (15-37) 09/04/23 09:55 ALT 23 U/L (14-59) 09/04/23 09:55 Alkaline Phosphatase 95 U/L (46-116) 09/04/23 09:55 Total Protein 6.4 g/dL (6.4-8.2) 09/04/23 09:55 Albumin 2.5 g/dL (3.4-5.0) L 09/04/23 09:55 Ur Random Creatinine 95.91 mg/dL 09/04/23 08:38 U Random Total Protein 15.3 mg/dL 09/04/23 08:38 U [place] Prot/Creat Ratio 0.15 09/04/23 08:38 Subjective Patient Reports: No new Complaints Interval history since last seen: Hasmukh denies headache or visual disturbances. Dr Mejia at [facility] was called and accepted Hasmukh in transfer. Hasmukh agrees to transfer. Consents signed. Results Hemoglobin/Hematocrit: Hgb 12.2 g/dL (11.2-15.7) 09/04/23 09:55 Hct 36.0 % (36.0-46.0) 09/04/23 09:55 Abnormal Lab Findings: Abnormal Labs 09/04/23 09:55 Anion Gap 11.1 H Glucose 114 H Albumin 2.5 L
== END 2023-09-04 13:19 | disposition short-term general hospital (02) ==
LOC: BCD 07:30 → OBS 09:12
PROVIDERS: Advanced Practice Midwife; PCP Nurse Practitioner Family; Visit Provider Advanced Practice Midwife
DX: O13.3 Gestational [pregnancy-induced] hypertension without significant proteinuria, third trimester (principal); O26.613 Liver and biliary tract disorders in pregnancy, third trimester; K80.70 Calculus of gallbladder and bile duct without cholecystitis without obstruction; O09.293 Supervision of pregnancy with other poor reproductive or obstetric history, third trimester; Z3A.31 31 weeks gestation of pregnancy
CPT/HCPCS: 59025; 80053; 85027; 82565; 84156; G0378; J0702; J3475

== ENCOUNTER 2023-11-03 15:52 | Outpatient (CLI) | payer MEDICAID, SELFPAY ==
[2023-11-03 12:31] LABS: HCT 38.8 % (36.0-46.0); HGB 12.8 g/dL (11.2-15.7); MCH 28.6 pg (27.0-33.0); MCV 87 fL (80-95); MPV 8.9 fL (8.0-11.0); Platelet Count 394 10^3/uL (130-400); RBC 4.47 10^6/uL (3.93-5.22); RDW 12.3 % (11.7-14.6); RDW-SD 39.3 fL; WBC 5.62 10^3/uL (4.4-10.8)
[2023-11-03 13:18] LABS: ALT 37 U/L (14-59); AST 21 U/L (15-37); Albumin 3.6 g/dL (3.4-5.0); Alkaline Phosphatase 85 U/L (46-116); Anion Gap 10.7 mmol/L (3-11); BUN 11 mg/dL (7-18); Bilirubin, Total 0.32 mg/dL (0.2-1.0); CO2 23.3 mmol/L (21.0-32.0); CREATININE 0.7 mg/dL (0.55-1.02); Chloride 105 mmol/L (98-107); Estimated GFR 119.24 (mL/min/1.73m2); Glucose 78 mg/dL (74-106); Potassium 4.5 mmol/L (3.5-5.1); Sodium 139 mmol/L (136-145); Total Protein 7.1 g/dL (6.4-8.2)
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
--- OUTSIDE RECORDS SUMMARY | 2023-11-03 15:55 | XMS_ITS | Encounter Summary ---
Author Organization Formerly [facility] Address [facility] [place] [address] Care Team Providers Care Radio Disc Jockey Name Role Phone Jeniffer Angulo APRN Primary Care Provider [phone] Encounter Details Date Type Department Care Team (Late st Contact Info) Description 06/05/2016 [place] [phone] Xochitl Chandler MSW Social History Tobacco Use Types Packs/Day Years [...] as of this encounter Progress Notes * Xochitl Chandler MSW - 06/06/2016 12:40 PM EST [employer] FOLLOW UP CONTINUING CARE MANAGEMENT SOCIAL WORK S/O Hasmukh Cordell Young was seen in [facility] Med with Dr Curtis. Please see provider note for ov details. Pt was accompanied by her Aunt, Akiko, and her work comp, [facility], Xochitl Jeong. Pt has been experiencing sever anxiety symptoms since her post injury trip to the ED. She reports she has been running a movie of being in the ED and feeling trapped and closed in on. She is currently seeing a Phd sayclogist for these symptoms and for bi polar disorder. She notes that she is not sure that this is really helpful but her mother insists she go. She is on a waiting list to see a psychiatrist. She does not agree with the [facility]. Pt notes that since she has been back home post hospitalization she has had at least two episodes of hypomanic and possibly risk taking periods that she reports lasted for a number of hours each. Kevino reports that she continues to feel depressed most of the time and to often feel anxious. We discussed her options in regards to selecting a different therapist. We also discussed the EMR process and the purpose of this. A/ Pt with significant post injury emotion regulation struggles. Differential diagnosis at this time is BPD versus Bi-polar. Pt has very supportive family. P/ We mutually agreed that the intervention of EMR should happen after a consultation with her treating therapist. [facility] will be available to assist pt and her treatment team as needed. 06/06/16 1200 Workers' Compensation Type of Visit Follow-up Is your claim open and active? Yes Work Status OOW Treating Provider Managing WC Yes Managing Provider Name Dr Curtis Receiving Wage Replacement Yes Do you have a Workers' Comp Contact? Yes Workers' Compensation Contact Name Xochitl Jeong Are there bills not covered by Workers' Compensation? No Is there an attorney law clerk for Workers' Compensation No Was there an CHEKO? No Previous WC claims through the DOL? No MMI? No documented in this encounter Plan of Treatment Not on file documented as of this encounter Visit Diagnoses Not on filedocumented in this encounter Care Teams Radio Disc Jockey Relationship Specialty Start Date End Date Jeniffer Angulo APRN [address] [place] [address] PCP - General Family Medicine 05/30/16 documented as of this encounter
--- OUTSIDE RECORDS SUMMARY | 2023-11-03 15:55 | XMS_ITS | Encounter Summary ---
Author Organization [facility] Address [facility] [place] [address] Care Team Providers Care Travel Med Surg Rn Name Role Phone Jeniffer Angulo APRN Primary Care Provider [phone] Encounter Details Date Type Department Care Team (Late st Contact Info) Description 08/28/2016 [place] [phone] Xochitl Chandler MSW Social History Tobacco Use [...] Progress Notes * Xochitl Chandler MSW - 08/28/2016 2:21 PM EDT [employer] [employer] [facility] FOLLOW UP CONTINUING CARE MANAGEMENT SOCIAL WORK ? CLAIM # TBD DOI:04/01/16 INSURANCE COMAPANY: [employer] CONTACT:Xochitl RIDDLE [phone] [phone] S/O Hasmukh Young was seen in [facility] Med with Dr Curtis. Please see provider note for ov details. Pt was accompanied by her NCM. Work Comp continues to refuse to cover any costs related to this injury, but they are paying for the NCM to manage the IW recovery. Hasmukh continues to report she is making slow and steady progress. She is tolerating work and is able to drive longer distances without strain. She will continue with Neuro Rehab as she increases herwork hours. A/ CCM will be available as needed to assist the pt's team. P/ Patient is able to identify the plan and is in agreement with: 08/28/16 1400 Workers' Compensation Type of Visit Follow-up Is your claim open and active? Yes Work Status Light Duty Treating Provider Managing WC Yes Managing Provider Name Dr Curtis Receiving Wage Replacement No Do you have a Workers' Comp Contact? Yes Workers' Compensation Contact Name Xochitl Jeong Are there bills not covered by Workers' Compensation? Yes Is there an senior teradata developer for Workers' Compensation No Was there an CHEKO? No Previous WC claims through the DOL? No MMI? No documented in this encounter Plan of Treatment Not on file documented as of this encounter Visit Diagnoses Not on filedocumented in this encounter Care Teams Travel Med Surg Rn Relationship Specialty Start Date End Date Jeniffer Angulo APRN [address] [place] [address] PCP - General Family Medicine 05/30/16 documented as of this encounter
--- OUTSIDE RECORDS SUMMARY | 2023-11-03 15:55 | XMS_ITS | Encounter Summary ---
Author Organization [facility] Address [facility] [place] [address] Care Team Providers Care Neurosurgical Nurse Practitioner Name Role Phone Jeniffer Angulo APRN Primary Care Provider [phone] [phone] Encounter Details Date Type Department Care Team (Late st Contact Info) Description 06/03/2016 Notes Only Care Management [facility] [place] [phone] Xochitl Chandler MSW Social History Tobacco Use Types Packs/Day Years Used Date Smoking Tobacco: Never Smokeless Tobacco: Never Alcohol Use Standard Drinks/Week Comments No 0 (1 standard drink = 0.6 oz pure alcohol) haven't drank since I hit my head, it will slow me down Sex and Gender Information Value Date Recorded Sex Assigned at Not on file Gender Identity Not on file Sexual Orientation Not on file documented as of this encounter Progress Notes * Xochitl Chandler MSW - 06/03/2016 3:07 PM EST [facility] SOCIAL WORK CONTINUING NURSING PROFESSOR CCM received call from pt's [facility] requesting assistance in Getting rehab therapies initiated and trying to obtain an earlier appointment with Dr Curtis. Call to Rehab to verify this process has started. And request for earlier appointment sent to Dr Curtis's motorboat mechanic. documented in this encounter Plan of Treatment Not on file documented as of this encounter Visit Diagnoses Not on filedocumented in this encounter Care Teams Neurosurgical Nurse Practitioner Relationship Specialty Start Date End Date Jeniffer Angulo APRN [address] [place] [address] PCP - General Family Medicine 05/30/16 documented as of this encounter
--- OUTSIDE RECORDS SUMMARY | 2023-11-03 15:55 | XMS_ITS | Encounter Summary ---
Author Organization [facility]ly [facility] Address [facility] [place] [address] Care Team Providers Care Grain Elevator Superintendent Name Role Phone Jeniffer Angulo APRN Primary Care Provider [phone] Reason for Visit * Consultation (Routine) - Closed Specialty Diagnoses / Procedures Referred By Contac t Referred To Contact Neurology Diagnoses hx of traumatic brain injury Jeniffer Angulo APRN [address] [place] [address] [facility] [address] [place] [address] Referral ID Status Reason Start Date Expiration Date V isits Requested Visits Authorized [id number] Closed Evaluate and Treat [facility] 04/08/2016 04/07/2017 6 6 Encounter Details Date Type Department Care Team (Late st Contact Info) Description 08/20/2016 2:00 PM EDT Office Visit Psychiatry [place] [address] Umm Pacheco MD [facility] [place] [address] Concussion, with LOC of 30 min or less, sequela Social History Tobacco Use Types Packs/Day Years [...] as of this encounter Progress Notes * Umm Pacheco MD - 08/20/2016 2:00 PM EDT The patient is a 21 year old female who is seen in consultation at the request of Dr Russ. The patient is being evaluated for post concussive syndrome. She is being evaluated in conjunction with Rosalia Rivera APRN, in the multi- disciplinary TBI clinic. Please see Nori's note for further details. I am providing a brief, focused neurological examination and recommendations. The patient admits to/denies the following neurological symptoms, which will be addressed further in the note below. ??? Headache- denies ??? Cervicalgia - denies ??? Phonophobia - mild ??? Photophobia - mild ??? Depression/anxiety - denies (feels great!) ??? Feeling cognitively/mentally ???foggy?? - mild ??? Sleeping too much She and her caregivers in the room (an aunt and a few rifle case repairer) note that she is so much better today than she was several months ago, an entirely different person. She herself says I feel great! A 12 point review of systems was performed and was negative except for that mentioned in the HPI. Patient Active Problem List Diagnosis Code ??? Hip pain, right M25.551 ??? Panic disorder with agoraphobia F40.01 ??? Post concussive syndrome F07.81 ??? Unspecified personality disorder F60.9 ??? Cognitive communication deficit R41.841 ??? Attention and concentration deficit R41.840 Social History Social History ??? Marital status: Single Spouse name: N/A ??? Number of children: N/A ??? Years of education: N/A Occupational History ??? Not on file. Social History Main Topics ??? Smoking status: Former Smoker Packs/day: 0.25 Years: 5.00 Types: Cigarettes ??? Smokeless tobacco: Former User Quit date: 04/01/2016 ??? Alcohol use No Comment: haven't drank since I hit my head, it will slow me down ??? Drug use: No ??? Sexual activity: No Other Topics Concern ??? Exercise: Patient Reported Yes ??? Abuse Or Threat: Physical, Sexual, Verbal No Social History Narrative Allergies Allergen Reactions ??? Codeine Shortness Of Breath Patient has breathing difficulties with this med Current Outpatient Prescriptions on File Prior to Visit Medication Sig Dispense Refill ??? gabapentin (NEURONTIN) 300 mg Capsule TAKE ONE CAPSULE BY MOUTH THREE TIMES A DAY 3 ??? gabapentin (NEURONTIN) 100 mg Capsule TAKE ONE CAPSULE BY MOUTH AT BEDTIME FOR 3 NIGHTS THEN INCREASE TO ONE CAPSULE EVERY 12 HOURS FOR 3 DAYS THEN INCREASE TO ONE CAPSULE EVER 1 ??? chlorproMAZINE (THORAZINE) 25 mg Tablet take 1 tablet by mouth twice a day and 2 tablets at bedtime 0 ??? chlorproMAZINE (THORAZINE) 10 mg Tablet Take two tablets up to twice a day as needed for anxiety or headache 20 tablet 1 ??? LORazepam (ATIVAN) 0.5 mg Tablet Take as needed according to the following taper: Take 0.5mg twice a day as needed for three days; Then, take 0.5mg once a day as needed for three days; Then stop taking 9 tablet 0 ??? propranolol (INDERAL) 10 mg Tablet Take 1 tablet by mouth 3 times daily. 30 tablet 1 No current facility-administered medications on file prior to visit. ROS: a 12 pt ROS was conducted and is negative except that mentioned in HPI General Physical Examination Appearance: The patient is healthy, in no distress, and appears comfortable. Head: Atruamatic. Normocephalic. Neck: Normal range of movements. Abdomen: non distended Extremities: Normal in appearance, no edema. Skin: No rashes or lesions Neurological Examination Mental status: Mood and affect are appropriate. Speech is fluent and appropriate, comprehension of language intact. Cranial nerves: Visual cedillo are intact, extra-ocular movements intact, pupils equal and reactive to light, face and smile are symmetric, facial sensation is intact and symmetric, hearing is intact,tongue protrudes midline, palate elevates fully, no dysarthria. Musculoskeletal: Normal power throughout all muscle groups. Normal tone and normal range of motion. Sensory: Sensory exam intact to light touch and vibration throughout Cerebellar/coordination: finger to nose intact. Normal fine motor movements. Mild postural tremor noted bilaterally. Gait and station: Gait is normal and steady, Romberg negative. Deep Tendon reflexes: DTRs are symmetric and brisk throughout. Negative Howe's. Impression and recommendations: 21 year old female who is seen in consultation at the request of Macho. The patient is being evaluated for post concussive syndrome. It sounds like she has made a tremendous recovery, which is excellent. She looks good neurologically. Tremor likely from lithium - mild, continue to monitor. May benefit from the propranolol. Propranolol may cause some cognitive slowing, but it is a GREAT choice for her anxiety, headaches, and may help the tremor, so I would leave it as is. Hypersomnia - could be due to her medications, however, this could be a post traumatic hypersomnia,cannot r/o SUSAN. If she snores or has observed apneic periods, persistent excessive daytime sleepiness, would have low threshold for a sleep study. Migraines - has been headache free for two months, but used to have terrible migraines and as of two months ago, she was having several headaches weekly. In the event that headaches recur, I will refer her to our headache clinic, which has such a long wait list, that it would be worth referring hernow, even though she has had a two week month from headaches. documented in this encounter Plan of Treatment Not on file documented as of this encounter Visit Diagnoses Diagnosis Concussion, with LOC of 30 min or less, sequela documented in this encounter Care Teams Grain Elevator Superintendent Relationship Specialty Start Date End Date Jeniffer Angulo APRN [address] [place] [address] PCP - General Family Medicine 05/30/16 documented as of this encounter
--- OUTSIDE RECORDS SUMMARY | 2023-11-03 15:55 | XMS_ITS | Encounter Summary ---
[place] [address] Care Team Providers Care Circle Cutting Saw Operator Name Role Phone Jeniffer Angulo APRN Primary Care Provider [phone] Reason for Referral * Psychiatric (Routine) - Closed Specialty Diagnoses / Procedures Referred By Contac t Referred To Contact Psychiatry Diagnoses Post concussive syndrome Cognitive communication deficit Attention and concentration deficit Rosalia Rivera APRN [facility] [place] [address] [facility] [address] [place] [id number] Referral ID Status Reason Start Date Expiration Date V isits Requested Visits Authorized [id number] Closed Consult & Test 08/18/2016 08/18/2017 1 1 Encounter Details Date Type Department Care Team (Late st Contact Info) Description 08/18/2016 Orders Only Psychiatry [place] [address] Rosalia Rivera APRN [facility] [place] [address] Post concussive syndrome; Cognitive communication deficit; Attention and concentration deficit Social History Tobacco Use Types Packs/Day Years [...] on file documented as of this encounter Plan of Treatment Scheduled Referrals Name Type Priority Associated Diagnoses Orde r Schedule Referral to Neuropsychology Outpatient Referral Routine Post concussive syndrome Cognitive communication deficit Attention and concentration deficit Ordered: 08/18/2016 documented as of this encounter Visit Diagnoses Diagnosis Post concussive syndrome Postconcussion syndrome Cognitive communication deficit Attention and concentration deficit Attention or concentration deficit documented in this encounter Care Teams Circle Cutting Saw Operator Relationship Specialty Start Date End Date Jeniffer Angulo APRN [address] [place] [address] PCP - General Family Medicine 05/30/16 documented as of this encounter
--- OUTSIDE RECORDS SUMMARY | 2023-11-03 15:55 | XMS_ITS | Clinical Summary ---
Author Organization [facility] Address [facility] [place] [address] Care Team Providers Care Taxi Truck Driver Name Role Phone Jeniffer Angulo APRN Primary Care Provider [phone] Allergies Active Allergy Reactions Criticality Noted Date Comments Codeine Shortness Of Breath High 05/01/2016 Patient has breathing difficulties with this med Medications Medication Sig Dispensed Refills Start Date End Date Status predniSONE (DELTASONE) 5 mg TabletIndications:Tiffanie cocytoclastic vasculitis Take 2 tablets by mouth daily. 60 tablet 5 02/09/2018 Active Active Problems Problem Noted Date Diagnosed Date Attention and concentration deficit 07/30/2016 Cognitive communication deficit 07/05/2016 Unspecified personality disorder 05/05/2016 Post concussive syndrome 05/02/2016 Panic disorder with agoraphobia 05/01/2016 Hip pain, right 02/28/2011 Estimated Date of Delivery Comme nts Yes 11/02/2023 Family History Medical History Relation Comments Breast Cancer Maternal Aunt 1 Depression Maternal Aunt 1 High Blood Pressure Maternal Aunt 1 Depression Maternal Aunt 2 High Blood Pressure Maternal Aunt 2 Coronary Artery Disease Maternal Grandfather Depression Maternal Grandfather High Blood Pressure Maternal Grandfather High Cholesterol Maternal Grandfather Breast Cancer Mother Heart Disease Paternal Grandfather Cancer Paternal Grandmother Coronary Artery Disease Paternal Grandmother High Cholesterol Paternal Grandmother Relation Status Comments Maternal Aunt 1 Maternal Aunt 2 Maternal Grandfather Mother Paternal Grandfather Paternal Grandmother Social History Tobacco Use Types Packs/Day Years Used Date Smoking Tobacco: Heavy Smoker Cigarettes 0.5 5 Smokeless Tobacco: Former Quit: 04/01/2016 Tobacco Cessation:Ready to Q uit: No Comments:States heavy smoker 10-15/day Alcohol Use Standard Drinks/Week Comments No 0 (1 standard drink = 0.6 oz pure alcohol) haven't drank since I hit my head, it will slow me down Estimated Date of Delivery Comme nts Yes 11/02/2023 Sex and Gender Information Value Date Recorded Sex Assigned at Not on file Gender Identity Not on file Sexual Orientation Not on file Last Filed Vital Signs Vital Sign Reading Time Taken Comments Blood Pressure 122/75 02/09/2018 9:24 AM EST Pulse 84 02/09/2018 9:24 AM EST Temperature 37.1 ??C (98.8 ??F) 05/08/2016 10:[address] Respiratory Rate 16 05/08/2016 10:12 AM EST Oxygen Saturation 100% 02/09/2018 9:24 AM EST Inhaled Oxygen Concentration - - Weight 90.3 kg (199 lb) 02/09/2018 9:24 AM EST Height 175.3 cm (5' 9) 02/09/2018 9:24 AM EST Body Mass Index 29.39 02/09/2018 9:24 AM EST Plan of Treatment Health Maintenance Due Date Last Done Comments HIV screen 07/08/2011 Lipid Screening 07/08/2011 Hepatitis B vaccine (0-59 yrs) (1) 2012 Tdap adult 2012 Tetanus vaccine 2012 Covid-19 Vaccine ( - 2022-24 season) 2022 HPV test 07/08/2023 PAP Smear 07/08/2023 Influenza (Flu) vaccine (1 o f 1 - Influenza standard series) 11/29/2023 Hepatitis C Screening Completed 02/09/2018 Procedures Procedure Name Priority Date/Time Associated Diagnosis Comments HEPATITIS C ANTIBODY Routine 02/09/2018 10:45 AM EST 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 from Last 3 Months or Most Recently Relevant to Health Maintenance Results * Hepatitis C Antibody (02/09/2018 10:45 AM EST) Hepatitis C Antibody Negative Negative [facility] Blood specimen (specimen) 02/09/2018 10:45 AM EST 02/09/2018 10:53 AM EST Narrative Resulting Agency Comment Spec In Lab Nishant Zapata MD CHEMISTRY ORDERAB LES [facility] [place] [address] from Last 3 Months or Most Recently Relevant to Health Maintenance Advance Directives * Full Code (Latest Code Status on File) Date Activated Date Inactivated Comments 05/02/2016 6:30 PM 05/08/2016 2:26 PM Question Answer Comments Does patient have capacity to make decision: Yes * Full Code Date Activated Date Inactivated Comments 05/01/2016 6:39 PM 05/02/2016 2:20 AM Question Answer Comments Does patient have capacity to make decision: Yes Care Teams Taxi Truck Driver Relationship Specialty Start Date End Date Jeniffer Angulo APRN [address] [place] [address] PCP - General Family Medicine 05/30/16
--- OUTSIDE RECORDS SUMMARY | 2023-11-03 15:55 | XMS_ITS | Encounter Summary ---
Author Organization [facility] Address [facility] [place] [address] Care Team Providers Care Under Sheriff Name Role Phone Jeniffer Angulo APRN Primary Care Provider [phone] Encounter Details Date Type Department Care Team (Late st Contact Info) Description 08/20/2016 Telephone [place] [id number] Xochitl Chandler MSW Social History Tobacco Use [...] Progress Notes * Xochitl Chandler MSW - 08/20/2016 5:41 PM EDT [facility] FOLLOW UP CONTINUING CARE MANAGEMENT SOCIAL WORK CLAIM # TBD DOI:04/01/16 INSURANCE COMAPANY: [employer] CONTACT:Xochitl RIDDLE [phone] [phone] S/O Hasmukh Jorgensen was [facility] with Dr Pacheco and Rosalia Rivera APRN. Please see provider note for ov details. Pt was accompanied by her Aunt and her NCM. Pt has returned to work and is pleased with this and with her progress. She feels well supported byher treatment team and her family. She notes that her bossis being very supportive as well. 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 A/ Pt reports feeling more depressed lately and plans to address this with her therapist and her Psychiatric BUTTER PRINTER as well. 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 P/ Patient is in agreement with the plan developed today. She will see Dr Curtis in [facility] next week. 08/20/16 1700 Workers' Compensation Type of Visit Follow-up Is your claim open and active? Yes Work Status Light Duty Treating Provider Managing WC Yes Managing Provider Name Dr Curtis Receiving Wage Replacement Yes Do you have a Workers' Comp Contact? Yes Workers' Compensation Contact Name Xochitl Jeong Are there bills not covered by Workers' Compensation? No Was there an CHEKO? No Previous WC claims through the DOL? No MMI? No documented in this encounter Plan of Treatment Not on file documented as of this encounter Visit Diagnoses Not on filedocumented in this encounter Care Teams Under Sheriff Relationship Specialty Start Date End Date Jeniffer Angulo APRN [address] [place] [address] PCP - General Family Medicine 05/30/16 documented as of this encounter
--- OUTSIDE RECORDS SUMMARY | 2023-11-03 15:55 | XMS_ITS | Encounter Summary ---
[place] [address] Care Team Providers Care Cutting Tool Sharpener Name Role Phone Jeniffer Angulo APRN Primary Care Provider [phone] Reason for Visit * Reason Comments Cognitive Problems TBI Clinic cog scree n * Psychiatric (Routine) - Closed Specialty Diagnoses / Procedures Referred By Contac t Referred To Contact Psychiatry Diagnoses Post concussive syndrome Cognitive communication deficit Attention and concentration deficit Rosalia Rivera, SUELLEN [facility] [place] [address] [facility] [address] [place] [address] Referral ID Status Reason Start Date Expiration Date V isits Requested Visits Authorized [id number] Closed Consult & Test 08/18/2016 08/18/2017 1 1 Encounter Details Date Type Department Care Team (Late st Contact Info) Description 08/20/2016 1:15 PM EDT Office Visit Psychiatry [place] [address] Tobias Garvin, PhD [facility] [place] [address] Mild traumatic brain injury, with LOC of unspecified duration, initial encounter Social History Tobacco Use Types Packs/Day Years [...] as of this encounter Progress Notes * Tobias Garvin, PhD - 08/20/2016 1:15 PM EDT [facility] - NEUROPSYCHOLOGICAL SCREEN Patient Name: Hasmukh Young MR#: [id number] Date of Evaluation: 08/20/2016 Age: 21 years Date of : 1995 Education: 14 years Referred By: SUELLEN Mims MD Presenting Concern: Ms. Young reported that she sustained a mild TBI on 04/01/2016, with an unknown period of loss of consciousness though an estimated 20 minutes of lost time immediately following theinjury. She noted she was startled and hit her head on a shelf, felt nauseous and went to the bathroom, then hit her head on the toilet. Following this incident, she noticed increased difficulty withshort-term memory, concentration, motor coordination, and balance. She noted a loss of sense of smell following the injury. She indicated that balance has substantially improved over time, while the other difficulties have improved somewhat though not returned to baseline. Medical History: Per records, her medical history is otherwise unremarkable. MRI of the brain without contrast (05/02/2016) was unremarkable. Family history was remarkable for depression and anxiety. Psychiatric History: Ms. Young reported that her current mood was ???not great,?? and noted that she has bipolar disorder (type 1) and has felt more down lately. She indicated sleeping about 15 hours last night, and noted she has had several days in recent weeks where she will primarily lay in bed. Records indicated a substantial increase in anxiety as well as panic attacks for 1-2 months following the injury, and that these symptoms have mostly or completely resolved. She indicated being in regular communication with a therapist and psychiatric nurse. Records indicated a history of substance abuse in adolescence, primarily during manic episodes, though no recent or current alcohol use or substance abuse. 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 Medications: According to records, Ms. Young was taking the following medications at the time of the evaluation: gabapentin 300mg thrice daily, chlorpromazine 25mg twice daily and 50mg nightly, chlorpromazine 10mg up to twice daily as needed, and propranolol 10mg thrice daily. Behavioral Observations: Ms. Young arrived on time for her appointment and was casually dressed andappropriately groomed. Gross motor functions were intact on informal observation. Spontaneous speech was fluent with normal prosody, and no word finding difficulty was apparent. Receptive language appeared intact, and she was able to understand test instructions without difficulty. Thought processes were linear and coherent, and of normal content. She reported her mood as ???not great?? and affect was euthymic. Ms. Young was cooperative with the interview and testing, appeared motivated to perform to the best of her abilities, and scores on performance validity measures were within expectation. Thus, the present results are judged to be a valid reflection of her current level of cognitive functioning. Total Time Spent in Testing, Interpretation, and Report Writin hours 15 minutes Impression & Disposition: Her performance on today? s cognitive screening revealed variable visuomotor processing speed and relative weaknesses in working memory and nonverbal memory. Otherwise,she was intact on measures of verbal memory, simple auditory attention, executive functioning, verbal fluency, and visuospatial abilities. This profile was seen in the context of estimated average range baseline verbal intellectual functioning (based on a word reading test). Overall, Ms. Young???s performance is likely due at least in part to mTBI given reported onset, though such difficulties may also be seen in the context of bipolar disorder. Given the recency of the injury and reported improvements in mood and daily activities, it is likely that she will experienceadditional cognitive recovery. The etiology of her current hypersomnia is unclear (i.e., whether itis due to fatigue secondary to TBI, mood symptoms, or a combination of factors). It is important tonote that the testing situation is designed to provide a relatively quiet and structured environment that is often more ideal than in daily life, and she may experience greater cognitive problems outside the testing session. Given the above conclusions, the following steps are recommended: ??? It is recommended that she return for additional neuropsychological evaluation in 6-12 months should her cognitive concerns persist. ??? Based on information obtained in clinical interview, she may benefit from referral to a sleep specialist to more fully assess hypersomnia and rule out a disorder such as sleep apnea. Improved sleep quality may also result in concomitant cognitive improvement. ??? Visual recall can be improved by capitalizing on verbal strategies such as written notes, repetition, chunking, mnemonics, verbal association, describing visual information to be recalled verbally, and employing a [id number] encoding strategy (perceiving visual information in the largest units possible, with secondary attention to smaller details). ??? She may benefit from breaking tasks or information into smaller steps or chunks. This will helplimit the demands placed on her working memory at any given time. Given some variability in processing speed, she may wish to allocate additional time when working on more difficult tasks. ??? She may find it helpful to reorganize her environment to be more like the quiet and structured test setting to maximize her performance. She may also benefit from completing more mentally demanding tasks during times she is likely to be most rested, and taking regular short breaks during the day. ??? She may benefit from frequent short breaks as she completes tasks. Breaks typically need only be 1 or 2 minutes in duration. Observing when her ability to focus begins to wane will help determinethe optimal time for a break. ???Attentional breaks?? are often best taken with a motor activity or a relaxing activity. For example, she might take a brief walk or run a short errand. ??? She may seek additional resources, including peer support, through the Brain Injury Association: (National toll-free Brain Injury Resource Line) Brain [employer] Association of [place]: 145.351.2063; http://www.biavt.org/ Thank you for the opportunity to participate in Ms. Young???s care. Saw Pena, Ph.D. Tobias Garvin, Ph.D., ABPP Postdoctoral Fellow in Neuropsychology Board Certified in Clinical Neuropsychology Curriculum Managerengineering tech A postdoctoral fellow in neuropsychology was involved in test administration, interpretation, and report development. The interpretation and integration of pertinent clinical information found in this screen was directed and verified by the supervising neuropsychologist/licensed clinical psychologist. TEST RESULTS NEUROPSYCHOLOGICAL TEST SCORE Descriptor RANGE Attention/Executive Functioning: Scaled Score WAIS-IV: Digit Span 5 Borderline Digit Span Forward 7 (max span = 5) Low average Digit Span Backward 6 (max span = 5) Low average Digit Span Sequence 6 (max span = 4) Low average WAIS-IV: Coding 8 Average Hollywood Making Test: Raw Score (T Score) Part A 43?? , 0 errors (29) Mildly impaired Part B 63?? , 0 errors (44) Average Stroop Color-Word Interference Test: Raw Score (T Score) Word Reading 93 (42) Low average Color Naming 79 (49) Average Color-Word 49 (53) Average Interference 6 (56) Average Memory: Talavera Verbal Learning Test: Raw Score (T-Score) Total Recall /36 - 6-10-11 (46) Average Delayed Recall / (53) Average Recognition Discrimination Index 12 (58) High average Brief Visuospatial Memory Test-Revised: Raw Score (%) Immediate Recall 21/36 - 4-8 -9 (5) Borderline Delayed Recall / (14) Low average Recognition Discrimination Index 4 (1-2) Mildly impaired to borderline Language: Raw Score (T score) Letter Fluency 35 (39) Low average Category Fluency 21 (43) Low average Test of Premorbid Functioning (TOPF) Scaled = 98 Average Visuospatial Functioning: Raw Score BVMT-R Copy /12 -- Clock drawing to command 10/10 Within normal limits Other: Raw Score Reliable Digit Span 7 Within normal limits Ji 15 Combined Score 28 Within normal limits documented in this encounter Plan of Treatment Scheduled Referrals Name Type Priority Associated Diagnoses Orde r Schedule Referral to Neuropsychology Outpatient Referral Routine Post concussive syndrome Cognitive communication deficit Attention and concentration deficit Ordered: 08/18/2016 documented as of this encounter Visit Diagnoses Diagnosis Mild traumatic brain injury, with LOC of unspecified duration, initial encounter documented in this encounter Care Teams Cutting Tool Sharpener Relationship Specialty Start Date End Date Jeniffer Angulo APRN [address] [place] [address] PCP - General Family Medicine 05/30/16 documented as of this encounter
--- OUTSIDE RECORDS SUMMARY | 2023-11-03 15:55 | XMS_ITS | Encounter Summary ---
Author Organization [facility] Address [facility] [place] [address] Care Team Providers Care Thimble Press Operator Name Role Phone Jeniffer Angulo APRN Primary Care Provider [phone] Encounter Details Date Type Department Care Team (Late st Contact Info) Description 11/06/2016 11:00 AM EDT Office Visit Occupational Medicine at [facility] [address] [place] [id number] Isabella Curtis MD [facility] [place] [address] Post concussive syndrome Social History Tobacco Use [...] on file documented as of this encounter Last Filed Vital Signs Vital Sign Reading Time Taken Comments Blood Pressure 124/80 11/06/2016 11:11 AM EDT Pulse 97 11/06/2016 11:11 AM EDT Temperature - - Respiratory Rate - - Oxygen Saturation - - Inhaled Oxygen Concentration - - Weight - - Height - - Body Mass Index - - documented in this encounter Progress Notes * Isabella Curtis MD - 11/06/2016 11:00 AM EDT [facility] OCCUPATIONAL AND ENVIRONMENTAL MEDICINE FOLLOW UP VISIT S: 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 See initial intake for details. Interval history: Since last visit, Ms. Young states that she is doing extremely well. She has beendischarged from her TBI provider. She finished her neuro rehabilitation program. She has been able to wean several medications. She is using only lithium and ativan. She is tolerating an increase in work hours. Headaches have improved and she would like to cancel her headache clinic visit. She reports neck pain is back to baseline. She does not note any persistent psychiatric symptoms or cognitive deficits from the injury. O: Vitals: 11/06/16 1111 BP: 124/80 Pulse: 97 She appears much improved at this visit with normal affect and improved attention and alertness. Affect is appropriate. She has no exaggerated pain behaviors. DIAGNOSTIC STUDIES: CT and MRI of the brain were negative. Cervical x-ray on 06/05/2016: FINDINGS: Alignment of the cervical spine is [...] do not see radiographic evidence of instability. ?? IMPRESSION Disc space narrowing at C7-T1. Probable scoliosis of the thoracic spine partially visualized on the AP view of the cervical spine. A: Ms. Young is a 21 year-old female who sustained two head injuries with neck injury at work, as described intake notes, associated with postconcussive symptoms, posttraumatic headaches, axial neck pain, upper extremity tingling, and severe anxiety in the setting of negative head imaging, four past head injuries, a history of chronic axial neck pain, and bipolar disorder. She is much improved since last visit with neuroehabilitation and time and reports that she is back to baseline with no significant residual symptoms or functional deficits. She has successfully returned to work. P: 1. She is at [facility]. 2. She has no permanent impairment. 3. Cancel neurology headache clinic appointment. 4. Follow up in TBI clinic as needed. 5. Repeat neuropsychiatric testing is not indicated at this time. 6. Up to six visits neurorehab for flare if needed. 7. Continue current medications and continue psychological care for baseline mental health diagnoses. 8. Follow up as needed. 20 minutes of this 25 minute visit were spent discussing diagnosis, treatment, and work capacity and work releast using a shared decision making approach. documented in this encounter Plan of Treatment Not on file documented as of this encounter Visit Diagnoses Diagnosis Post concussive syndrome Postconcussion syndrome documented in this encounter Care Teams Thimble Press Operator Relationship Specialty Start Date End Date Jeniffer Angulo APRN [address] [place] [address] PCP - General Family Medicine 05/30/16 documented as of this encounter
--- OUTSIDE RECORDS SUMMARY | 2023-11-03 15:55 | XMS_ITS | Encounter Summary ---
[place] [address] Care Team Providers Care Keyboarding Clerk Name Role Phone Jeniffer Angulo APRN Primary Care Provider [phone] Encounter Details Date Type Department Care Team (Latest Contact Info) Description 08/06/2016 10:00 AM EDT Office [place] [id number] Isabella Buckner, OT Attention and concentration deficit; Post concussive syndrome Social History Tobacco Use [...] as of this encounter Progress Notes * Isabella Buckner OT - 08/06/2016 10:00 AM EDT OCCUPATIONAL THERAPY TREATMENT NOTE REFERRAL SOURCE: Rosalia RAZA MD FOLLOW-UP: PRN TOTAL TREATMENT TIME: 55 Minutes TIMED CODE TREATMENT TIME: 55 minutes TFA OCCUPATIONAL PROFILE: PAST MEDICAL HISTORY: 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 She describes bending below a shelf, standing up quickly, and hitting her head. She then went into the bathroom because she was vomiting and lost consciousness in the bathroom and hit her head again when she fell. She was seen at the [facility] ED, where a CT scan was negative, and she was diagnosed with a concussion. She followed up with her PCP in [place]. She developed significant behavior changes, including regression and anxiety. Her PCP sent her to the [facility] ED, where she spent the night and then was transferred to for an inpatient psychiatric admission from May 01, 2016, to May 08, 2016. See discharge summary for details. She has follow up with outpatient Psychiatry in [facility]. She is receiving medication and also has seen an line worker. She arrives today with her mother Pertinent History and/or Co-morbidities: Past Medical History: Diagnosis Date ??? Allergy ??? Circulatory disease PERFORMANCE DEFICITS: Hasmukh Young identifies difficulty with the following functional activities using the Patient snxietySpecific Functional Scale (PSFS): 0/10 (unable to perform) to 10/10 (Able to perform without difficulty) Activity At Evaluation 07/23/16 1.) cooking 6 9 2.) bathing and dressing 3 10 3.) home management 4 10 4.) sleep 5 8 5.) being with her dog and walking her 0 5 anxiety 6.) work 0 0 Total: Average Score [place] Cognitive Assessment (MoCA) Results: Initial eval 07/23/16 Comments Visuospatial/Exec 03/30 0 Trails Test 0 1 Cube Copy 03/30 1 Clock: Contour 0 1 Clock: Numbers 03/30 1 Clock: Hands Naming 3/3 3 (of 3) Attention 0/ 1 Repeat forward 0 1 Repeat backwards 03/30 1 Tapping for letter A 3/3 3 Serial 7 Subtraction (3pts=4+; 2pts=2+; 1pt=1) Language 0/2 1 Repeating Sentences Fluency 0 1 Word Naming (1pt=11+ words) Abstraction 2/2 2 Similarities (Associations) Delayed Recall 3/5 4 (uncued) Orientation 0/ 1 Month 03/30 1 Date 03/30 1 Year 03/30 1 Day of the week 1/1 1 Location 03/30 [facility] Add 1 point if 12 years of education or less TOTAL 20/30 27 Score of 26 or greater considered normal Administered the following subtests of the Test of Everyday Attention (TEA). The TEA is a standardized, normed assessment of various forms of attention. Initial eval 1) Map Search: < 1st percentile 2) Elevator Countin/7 abnormal 3) Elevator Counting with Distraction:310 5th percentile 4) Visual Elevator: 25th percentile for accuracy and 50th percentile for speed 5) Elevator Counting with Reversal: 50th percentile 6) Telephone Search: 25th percentile 7) Telephone Search While Countinst percentile 07/23/16 1) Map Search: 10th percentile 2) Elevator Countin/7 normal 3) Elevator Counting with Distraction:11/06 25-50th percentile 4) Visual Elevator: 75th percentile for accuracy and 90th percentile for speed 5) Elevator Counting with Reversal: 50th percentile 6) Telephone Search: 95th percentile 7) Telephone Search While Countin-50th percentile TREATMENT TODAY: Hasmukh has returned to work-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 She does report that she took adivan because it was verybusy at work-but the medicine helped. Current tools are deep breathing, 5 senses, and prn medication. Hasmukh reports that she is doing very, very well with recalling drinks and making them at work. She does report that due to her lithium she has been having difficulty with trembling when measuring (but this is baseline) Due to Hasmukh's need to complete scheduling at work- provided her with [facility] 16 appointments to be scheduled from an unorganized paragraph during a week with auditory distraction of playing music. Hasmukh made a plan by writing out the appointments on a separate sheet. She then was able to prioritize the scheduled appointments and add in the flexible chores/errands. Of the 16 appointmentserendira made 1 mistake- and after 1 cue changed it to the appropriate day. Overall she completed in 18 mins with 94% accuracy. 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 CLINICAL DECISION MAKING: Hasmukh Young presents with continued improvement in her attention, memory, and problem solving ability as seen with the CPTA. Hasmukh has been doing well at work and is prepared for 3 days a week at 5hrs with a 1 hr break. As Hasmukh currently feels that her work schedule is too easy and she has been functional with minimal post concussive symptoms. Today Hasmukh worked on a complex [employer] level 3 scheduling task and completed with good timing and 94% accuracy. She willbenefit from continued OT services and has good rehabilitation potential. Next visit: skilled nursing goals- add short term goals Skilled Nursing Goals (to be met by discharge): Date [...] per day from her mother. Goal Status: MET Hasmukh Young will be able to tolerate a 2 stop scavenger lovell with effective planning prior to the task and not more than 3 verbal cues to find 6 items.. Goal Status: MET Hasmukh Young will increase her score on selective attention tasks with the TEA to 10th percentilesuch that she can go to a grocery store to get 2 items at a quiet time per day independent except for being driven there and back Goal Status: MET Short Term Goals (to be met by 10 visits): Date Goal Met: Hasmukh Young will return to work at a modified schedule of 12 hrs per week with minimal increase on the concussion symptom scale Goal Status: In progress Hasmukh Young will write this goal Goal Status: in progress PLAN: The patient is to be seen 1 time(s) per week, for 12 week(s) to progress toward short and halfway goals. for Cognitive retraining attention, sequencing, problem [...] as of this encounter Visit Diagnoses Diagnosis Attention and concentration deficit Attention or concentration deficit Post concussive syndrome Postconcussion syndrome documented in this encounter Care Teams Keyboarding Clerk Relationship Specialty Start Date End Date Jeniffer Anguol APRN [address] [place] [address] PCP - General Family Medicine 05/30/16 documented as of this encounter
--- OUTSIDE RECORDS SUMMARY | 2023-11-03 15:55 | XMS_ITS | Encounter Summary ---
[place] [address] Care Team Providers Care Green Chain Worker Name Role Phone Jeniffer Angulo APRN Primary Care Provider [phone] Encounter Details Date Type Department Care Team (Late st Contact Info) Description 07/23/2016 10:00 AM EDT Office [place] [address] Moe Weston, OT [facility] PHYSICAL MEDICINE & [place] [address] Post concussive syndrome Social History Tobacco Use [...] Progress Notes * Moe Weston, OT - 07/23/2016 10:00 AM EDT OCCUPATIONAL THERAPY TREATMENT NOTE REFERRAL SOURCE: Rosalia RAZA MD FOLLOW-UP: PRN TOTAL TREATMENT TIME: 60 Minutes TIMED CODE TREATMENT TIME: 60 minutes OCCUPATIONAL PROFILE: PAST MEDICAL HISTORY: 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 She describes bending below a shelf, standing up quickly, and hitting her head. She then went into the bathroom because she was vomiting and lost consciousness in the bathroom and hit her head again when she fell. She was seen at the [facility] ED, where a CT scan was negative, and she was diagnosed with a concussion. She followed up with her PCP in [place]. She developed significant behavior changes, including regression and anxiety. Her PCP sent her to the [facility] ED, where she spent the night and then was transferred to for an inpatient psychiatric admission from May 01, 2016, to May 08, 2016. See discharge summary for details. She has follow up with outpatient Psychiatry in [facility]. She is receiving medication and also has seen an leather goods ii assembler. She arrives today with her mother Pertinent History and/or Co-morbidities: Past Medical History: Diagnosis Date ??? Allergy ??? Circulatory disease CURRENT INSTRUMENTAL ADL PEFORMANCE: MEAL PREPARATION (X) NOTES/ ADAPTIVE EQUIPMENT multi-dish hot meal x one dish hot meal hot beverage/re-heat prepared food cold meal self-serve Other Does not cook as much I just do not like cooking any more GROCERY SHOPPIN. composing shopping list, 2. locating desired items, 3. selecting purchases, 4.transporting items (X) NOTES/ ADAPTIVE EQUIPMENT 4/4 without assistance 3/4 without assistance 2/4 without assistance 1/4 without assistance Dependent on assistance for 4/4 Other I am looking through shelves and finding things that I need on my own. CLOTHING CARE: 1. Collecting clothing and supplies, 2. Sorting clothing, 3. Operating washer/dryer,4. Folding, 5. Putting away clothing (X) NOTES/ ADAPTIVE EQUIPMENT 4/4 without assistance x 3/4 without assistance 2/4 without assistance 1/4 without assistance Dependent on assistance for 4/4 Other LIGHT CLEANIN. making bed, 2. Straightening/dusting, 3. Vacuuming, 4. washing dishes (X) NOTES/ADAPTIVE EQUIPMENT 4/4 without assistance x 3/4 without assistance 2/4 without assistance 1/4 without assistance other HEAVY CLEANING TASKS: 1. Mopping/scrubbing floor, 2. Taking out the garbage, 3. Changing bed linens, 4. Washing bathroom (X) NOTES/ ADAPTIVE EQUIPMENT 4/4 without assistance x 3/4 without assistance 2/4 without assistance 1/4 without assistance Other MONEY MANAGEMENT (X) NOTES/ ADAPTIVE EQUIPMENT Complex Transactions x Payout correct money/change Pay out money for simple transactions Identify blanchard/coin correctly Unable to complete transactions Other She is not receiving workers comp pay so mother is paying all bills Has been playing [employer] doing correct change. WRITTEN COMMUNICATION (X) NOTES/ ADAPTIVE EQUIPMENT 1 page with good legibility Legibility declines after 1 page Legibility declines after 1/2 page Biographical information with fair/good legibility Biographical information with poor legibility Unable to perform writing Other Feels this is more organized in her writing. PHONE USE (X) NOTES/ ADAPTIVE EQUIPMENT Independent in phone use including content Place informational call with verbal cues/dials phone Dials familiar numbers with strategies Answers phone but cannot place call Unable to use phone Other I can now hold a conversation with my workers comp rn field case manager. MEDICATION MANAGEMENT (X) NOTES/ ADAPTIVE EQUIPMENT Independent managing medication/medication information/refills x Independent with modificantions Takes medications with setup or verbal cues for refill Occasional assist with medication and dependent for refill Frequent verbal cues to take medication Assist to take all medication Other TRANSPORTATION (X) NOTES/ ADAPTIVE EQUIPMENT Independent with driving/public transit independent with modifications independent with paratransit requires route delivery service driver/enrobing machine feeder due to cognitive or physical limitations homebound/unable to access transportation Other Not driving but can travel as a passenger. Gets board and impatient easily. 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 PERFORMANCE DEFICITS: Hasmukh Young identifies difficulty with [...] 6.) work 0 0 Total: Average Score Nixon Cognitive Assessment (MoCA) Results: Initial eval 07/23/16 Comments Visuospatial/Exec 03/30 0 Trails Test 0 1 Cube Copy 03/30 Clock: Contour 0 1 Clock: Numbers 03/30 Clock: Hands Naming 3/3 3 (of 3) Attention 0 1 Repeat forward 1 Repeat backwards 03/30 1 Tapping for letter A 3/3 3 Serial 7 Subtraction (3pts=4+; 2pts=2+; 1pt=1) Language 0/ 1 Repeating Sentences Fluency 0 1 Word Naming (1pt=11+ words) Abstraction 2/2 2 Similarities (Associations) Delayed Recall 35 4 (uncued) Orientation 0/ 1 Month 03/30 1 Date 03/30 Year 03/30 1 Day of the week 03/30 Location 03/30 1 City Add 1 point if 12 years of education or less TOTAL 27 Score of 26 or greater considered normal Administered the following subtests of the Test of Everyday Attention (TEA). The TEA is a standardized, normed assessment of various forms of attention. Initial eval 1) Map Search: < 1st percentile 2) Elevator Countin/7 abnormal 3) Elevator Counting with Distraction:3/10 5th percentile 4) Visual Elevator: 25th percentile for accuracy and 50th percentile for speed 5) Elevator Counting with Reversal: 50th percentile 6) Telephone Search: 25th percentile 7) Telephone Search While Countinst percentile 07/23/16 1) Map Search: 10th percentile 2) Elevator Countin/7 normal 3) Elevator Counting with Distraction:8 25-50th percentile 4) Visual Elevator: 75th percentile for accuracy and 90th percentile for speed 5) Elevator Counting with Reversal: 50th percentile 6) Telephone Search: 95th percentile 7) Telephone Search While Countin-50th percentile TREATMENT TODAY: Reassessed function, the MOCA, and the TEA. Skilled discussion of resultls CLINICAL DECISION MAKING: Hasmukh Young presents with continued improvement in her attention, memory, and problem solving ability as seen with the CPTA. She presents today with a normal score for the MOCA and significant improvement with the TEA. Visual selective attention continues to be a slightchallenge for her but her performance in the grocery store finding items has improved. As seen withthe Complex Task Performance Assessment, memory for more challenging tasks continues to be somewhatof an issue and we will use further visits to challenge this combine with reading retention, writing, and problem solving. She will benefit from continued OT services and has good rehabilitation potential. Consider another scavenger lovell next visit to meet last goal. Update goals next visit after the scavenger lovell Fpc Goals (to be met by discharge): Date [...] 12 week(s) to progress toward short and senior living goals. for Cognitive retraining attention, sequencing, problem [...] syndrome documented in this encounter Care Teams Green Chain Worker Relationship Specialty Start Date End Date Jeniffer Angulo APRN [address] [place] [address] PCP - General Family Medicine 05/30/16 documented as of this encounter
--- OUTSIDE RECORDS SUMMARY | 2023-11-03 15:55 | XMS_ITS | Encounter Summary ---
Author Organization [facility] [address] Care Team Providers Care Machine Welt Butter Name Role Phone Jeniffer Angulo APRN Primary Care Provider [phone] Reason for Referral * Physical Therapy (Routine) - Closed Specialty Diagnoses / Procedures Referred By Contac t Referred To Contact Physical Therapy Diagnoses Work related injury Isabella Curtis MD [facility] [address] Physical Therapy, [address] [address] Referral ID Status Reason Start Date Expiration Date V isits Requested Visits Authorized [id number] Closed Evaluate and Treat 07/03/2016 12/30/2016 1 1 Encounter Details Date Type Department Care Team (Late st Contact Info) Description 07/03/2016 Orders [place] [address] Isabella Curtis MD [facility] [address] Work related injury Social History Tobacco Use Types Packs/Day Years [...] Associated Diagnoses Orde r Schedule Referral to Physical Therapy Outpatient Referral Routine Work related injury Ordered: 07/03/2016 documented as of this encounter Visit Diagnoses Diagnosis Work related injury Injury, other and unspecified, unspecified site documented in this encounter Care Teams Machine Welt Butter Relationship Specialty Start Date End Date Jeniffer Angulo APRN [address] [place] [address] PCP - General Family Medicine 05/30/16 documented as of this encounter
--- OUTSIDE RECORDS SUMMARY | 2023-11-03 15:55 | XMS_ITS | Encounter Summary ---
[place] [address] Care Team Providers Care County Manager Name Role Phone Jeniffer Angulo APRN Primary Care Provider [phone] Encounter Details Date Type Department Care Team (Latest Contact Info) Description 08/19/2016 1:30 PM EDT Office [place] [id number] Isabella Buckner, OT Attention and concentration deficit; [...] Progress Notes * Isabella Buckner OT - 08/19/2016 1:30 PM EDT Images from the original note were not included. 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 She describes bending below a shelf, standing up quickly, and hitting her head. She then went into the bathroom because she was vomiting and lost consciousness in the bathroom and hit her head again when she fell. She was seen at the [facility] ED, where a CT scan was negative, and she was diagnosed with a concussion. She followed up with her PCP in [place]. She developed significant behavior changes, including regression and anxiety. Her PCP sent her to the [facility] ED, where she spent the night and then was transferred to for an inpatient psychiatric admission from May 01, 2016, to May 08, 2016. See discharge summary for details. She has follow up with outpatient Psychiatry in [facility]. She is receiving medication and also has seen an filling winder. She arrives today with her mother Pertinent [...] 6.) work 0 0 Total: Average Score 08/19/16 Nixon Cognitive Assessment (MoCA) Results: Initial eval [...] 1pt=1) Language 0/2 1 Repeating Sentences Fluency 0/ 1 Word Naming (1pt=11+ words) Abstraction 2/2 2 Similarities (Associations) Delayed Recall 3/5 4 (uncued) Orientation 0/ 1 Month 1/1 1 Date 03/30 1 Year 03/30 1 Day of the week 03/30 1 Location 03/30 1 City Add 1 point [...] Telephone Search While Countin-50th percentile TREATMENT TODAY: Completed the concussion symptom scale-see above. Skilled discussion related to return to work. Hasmukh is working 4 days a week for 4 hours. Yesterday due to how busy it was she accidentally worked 5 hours-fatigue is an issue, no headache or dizziness. Hasmukh has had a little nausea-she did change some of her medications (due to her mental health) which can also cause fatigue. Hasmukh is tolerating the screens at work okay; she also has an anti-glare protectant on her glasses (which helps). Hasmukh agrees to work 4 days 4 hours until the end of July, then increase to 5 days for 4 hours for 1-2 weeks depending on symptoms. Then increasing 5 days for 5 hours a day. Printed out 3 monthly schedules and had Hasmukh track her hours and if she was symptomatic to assist with judging if she was able to progress her hours. Hasmukh reports no issues with driving. She reports that her main concern is sleeping too much-she is sleeping 15 hrs a day. She reports typically going to bed at 9:30am and waking up at noon (if she has to be at work in the afternoon). She reports not feeling rested when she wakes up. Hasmukh reports that she makes up a lot during the night. Discussed with Hasmukh sleep hygiene strategies including setting alarm to get up at the same time daily i.e. 9am or 10am to allow for 11-12 hours of sleep-but to encourage a typical pattern of sleep-wake. If after 2 weeks of sleep hygiene training, she continues to be very tired would suggest calling pysch PRIMARY SCHOOL TEACHER LIBRARIAN to discuss if related to meds. CLINICAL DECISION MAKING: Hasmukh Young presents with continued improvement in her attention, memory, and problem solving ability as seen with the CPTA. Hasmukh is slowly increasing her work hours with minimal concussive symptoms as seen by concussion scal of -she is currently consistently working 4 days for 4 hours with only fatigue. She reports sleeping 15 hours a day but this may also berelated to medication changes. She will try sleep training i.e. Setting alarms and getting up at the same time daily-if this does not improve she will call her psychiatric nurse and discuss if it is related to her med changes. She will benefit from continued OT services and has good rehabilitation potential. Next visit: Continue with RTW modification Sleep hygiene Correction Goals (to be met by discharge): Date [...] on the concussion symptom scale Goal Status: MET Hasmukh Young will return to full work with minimal concussion symptoms Goal Status: in progress PLAN: The patient is to be seen 1 time(s) per week, for 12 week(s) to progress toward short and terminal operations supervisor goals. for Cognitive retraining attention, sequencing, problem [...] syndrome documented in this encounter Care Teams County Manager Relationship Specialty Start Date End Date Jeniffer Angulo APRN [address] [place] [address] PCP - General Family Medicine 05/30/16 documented as of this encounter
--- OUTSIDE RECORDS SUMMARY | 2023-11-03 15:55 | XMS_ITS | Encounter Summary ---
Author Organization [facility] [place] [address] Care Team Providers Care Tool Turret Lathe Set Up Operator Name Role Phone Jeniffer Angulo APRN Primary Care Provider [phone] Encounter Details Date Type Department Care Team (Late st Contact Info) Description 08/28/2016 11:00 AM EDT Office Visit Occupational Medicine at [facility] [address] [place] [id number] Isabella Curtis MD [facility] [place] [address] Post concussive syndrome Social History Tobacco Use [...] of this encounter Progress Notes * Isabella Curtis MD - 08/28/2016 11:00 AM EDT [facility] OCCUPATIONAL AND ENVIRONMENTAL MEDICINE FOLLOW UP VISIT S: 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 See initial intake for details. Interval history: Since last visit, Ms. Young states that she is doing extremely well. She has beendischarged from her TBI provider. She is finishing her neuro rehabilitation program. She is on a stable medication regimen. She has returned to work and is tolerating 4 hours per day 4 days a week and would like to increase this. Neuropsychiatric testing showed symptoms consistent with her TBI. HerTBI provider and her neuropsychiatric testing provider has recommended a sleep medicine consult forher hypersomnolence. Headaches have improved. Current Outpatient Prescriptions Medication Sig Dispense Refill ??? norethindrone (MICRONOR) 0.35 mg Tablet TAKE ONE TABLET BY MOUTH EVERY DAY 3 ??? ondansetron (ZOFRAN) 4 mg Tablet TAKE ONE TABLET BY MOUTH EVERY 8 HOURS NEEDED 0 ??? hydrOXYzine (ATARAX) 25 mg Tablet TAKE TWO TABLETS BY MOUTH THREE TIMES A DAY FOR ANXIETY MAY OF 6 TABLETS 3 ??? lithium 300 mg Capsule Take 300 mg by mouth 3 times daily (with meals). ??? LORazepam (ATIVAN) 0.5 mg Tablet Take as needed according to the following taper: Take 0.5mg twice a day as needed for three days; Then, take 0.5mg once a day as needed for three days; Then stop taking 9 tablet 0 ??? propranolol (INDERAL) 10 mg Tablet Take 1 tablet by mouth 3 times daily. (Patient taking differently: Take 30 mg by mouth 3 times daily. Indications: pt taking 30 mg 3x day) 30 tablet 1 No current facility-administered medications for this visit. O: She appears much improved at this visit with normal affect and improved attention and alertness.Affect is appropriate. She has no exaggerated pain [...] cervical spine. A: Ms. Young is a 20 year-old female who sustained two head injuries with neck injury at work, as described above, associated with postconcussive symptoms, posttraumatic headaches, axial neck pain, upper extremity tingling, and severe anxiety in the setting of negative head imaging, four past head injuries, a history of chronic axial neck pain, and bipolar disorder. She is much improved since last visit with neurorehabilitation and time. 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 P: 1. We discussed her work capacity in detail, and I have updated her workers compensation form. We discussed that this is a prescription. If she needs changes she will call the occupational medicine M.D. clinic nurses to update her WC form. 2. She will consider a sleep medicine consult in the future if sleep remains a problem. 3. Follow up with neurology headache clinic and/or TBI clinic as needed. 4. Per neuropsychiatric testing, repeat testing in 6 to 12 months if ongoing symptoms that interfere with function. 5. Complete neurorehabilitation program. Up to six visits neurorehab for flare if needed. 6. Continue current medications and continue psychological care. 7. Hold on eidetic memory reprocessing, neuro-ophthalmology, ENT given clinical improvement. 8. Cervical x-ray does show narrowing at C7-T1 at level of neck symptoms. Hold on further work up given improvement but if symptoms return or worsen, consider further evaluation and treatment. 9. I will see her approximately 1 month after she has returned to full duty work and anticipate maximum medical improvement at that time. I will request a CDR table from her neuro rehabilitation and TBI providers in anticipation of her impairment rating. 20 minutes of this 25 minute visit were spent discussing diagnosis, treatment, and work capacity and work releast using a shared decision making approach. * Isabella Curtis MD - 08/28/2016 11:00 AM EDT Per OT: We have 2 more CENTRAL OFFICE INSPECTOR visits scheduled with a plan to cancel if they are not needed. Plan: Agree with above. Isabella Curtis MD, PhD, MPH, FACOEM Singing Messenger Section of Occupational and Environmental Medicine Department of Medicine [facility] * Isabella Curtis MD - 08/28/2016 11:00 AM EDT Per treating OT: Dear Dr. Curtis, ? I met with Hasmukh today she has not started to work 30 hours because her employer doesn't have the hours at this time. ??We scheduled a prn follow up in october if needed ? CDR table I completed incase I dont see her again. ? Memory .5 ? Orientation 0 ? Judgement .5 ? Community .5 ? Home .5 ? Personal 0 ? Thanks, ? Isabella Plan: Follow up with Hasmukh as planned to review work capacity and possible MMI. Isabella Curtis MD, PhD, MPH, FACOEM [employer] Section of Occupational and Environmental Medicine Department of Medicine [facility] documented in this encounter Plan of Treatment Not on file documented as of this encounter Visit Diagnoses Diagnosis Post concussive syndrome Postconcussion syndrome documented in this encounter Care Teams Tool Turret Lathe Set Up Operator Relationship Specialty Start Date End Date Jeniffer Angulo APRN [address] [place] [address] PCP - General Family Medicine 05/30/16 documented as of this encounter
--- OUTSIDE RECORDS SUMMARY | 2023-11-03 15:55 | XMS_ITS | Encounter Summary ---
[place] [address] Care Team Providers Care Medical Office Receptionist Assistant Name Role Phone Jeniffer Angulo APRN Primary Care Provider [phone] Encounter Details Date Type Department Care Team (Late st Contact Info) Description 07/11/2016 4:00 PM EDT Office Visit [place] [address] Moe Weston, OT [facility] PHYSICAL MEDICINE & [place] [address] Post concussive syndrome Social History Tobacco Use [...] Progress Notes * Moe Weston, OT - 07/11/2016 4:00 PM EDT OCCUPATIONAL THERAPY TREATMENT NOTE REFERRAL SOURCE: Rosalia RAZA MD FOLLOW-UP: PRN TOTAL TREATMENT TIME: 60 Minutes TIMED CODE TREATMENT TIME: 60 minutes OCCUPATIONAL PROFILE: PAST MEDICAL HISTORY: 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 She describes bending below a shelf, standing up quickly, and hitting her head. She then went into the bathroom because she was vomiting and lost consciousness in the bathroom and hit her head again when she fell. She was seen at the [facility] ED, where a CT scan was negative, and she was diagnosed with a concussion. She followed up with her PCP in [place]. She developed significant behavior changes, including regression and anxiety. Her PCP sent her to the [facility] ED, where she spent the night and then was transferred to for an inpatient psychiatric admission from May 01, 2016, to May 08, 2016. See discharge summary for details. She has follow up with outpatient Psychiatry in [facility] at [facility]. She is receiving medication and also has seen an lead network engineer. She arrives today with her mother Pertinent History and/or Co-morbidities: Past Medical History: Diagnosis Date ??? Allergy ??? Circulatory disease TREATMENT TODAY: Completed a business planning activity as follows. She/he was presented with the following instruction, a link to field trip pumpkins at [facility], and an article on planting and black plastic use. You will be planting a pumpkin garden that is [phone] feet for the purpose of supplying a local school with pumpkins for a bank appraiser. The school is generous in that they will be providing you a tractor with a 5 foot wide rototiller to be used over the summer for preparing the garden and for weed control between rows. They are providing you with the garden plot near the [facility] for which there is access to a well with a water spout and garden hose to get to your garden. For the purposes of organic weed control they have requested that you use 4 foot wide black plastic to plant your rows of pumpkins in. Considering what they have provided for resources, they are purchasing thepumpkins from you at 50% the cost of usual retail sales. They want you to plant field trip size pumpkins only which have sold the best in past fund raisers. Please calculate and describe the following. You will have 10 minutes to describe your plan at the end of the visit. 1 how are you going to plant and care for the garden? 2 What are your expenses? 3 How much in gross sales will you make? 4 what is your actual profit? Please note: Not all the information related to cost are presented in the material provided. If unable to find costs please use your therapist as a resource to tell you the cost of items. She initially completed the task in 20 minutes with good focus despite background noise from background conversation but forgot to factor in the need for black plastic, fertilizer, pest control measures, and crop loss due to disease. She required increased time to grasp the method of placing black p lastic with 5 foot spacing between each strip of plastic but once she understood that was what was being described she planned appropriately and asked for prices for all the variables that were listed in the article. There was one calculation error at the end of the task but otherwise she was accurate. CLINICAL DECISION MAKING: Hasmukh Young presents with continued improvement in her attention, memory, and problem solving ability as seen with today's garden planning task. She maintained focus overa 60 minute period despite distraction with some deficit in memory still evident. She was otherwiseaccurate in her math calculation. She is doing most of the cooking and home management activity now with good organizational skills. He mom is noting nice improvement. She questions returning to local driving and we discussed the concern of anxiety with driving for which she reports that she will know when not to drive based on if she is having issues with anxiety that day. Considering her attentional and problem solving ability today there is no indicators to raise concern with driving at thispoint. She would like to start driving locally with a family memory in the car first and this will be communicated with Nori Rivera APRN to make the final decision. She had good rehabilitation potential. Leak Inspector Goals (to be met by discharge): Date [...] 12 week(s) to progress toward short and long filler cigar roller machine goals. for Cognitive retraining attention, sequencing, problem solving and compensatory strategies Treatment to include use of: Therapeutic Exercise, Therapeutic Activities, Neuromuscular Re-education, Patient/Caregiver education with a compensatory and rehabilitative approach (X) Hasmukh Young participated in the evaluation, collaborated on treatment goals, and agrees to the treatment plan. * Isabella Curtis MD - 07/11/2016 4:00 PM EDT Per OT: Met with Hasmukh again today and the question of driving arose. ??She has made a lot of gains and based on her performance in the past 2 visits I do not see any red flags related to attention, memory,problem solving for the extent of driving locally. ??The question arose related to sending her to [facility] for a driving eval but my concern with that is it will result in so much anxiety with being tested in an unfamiliar environment that we will not get a true measure of her actual ability to drive. ??She would like to have a graded return to driving with family members in the car which I feel is a safe option. ??If you feel this is appropriate could you please write a letter stating so. Thanks ? Sotero Plan: Agree with above. I will discuss with her at next visit. Isabella Curtis MD, PhD, MPH, FACOEM Enterprise Business Architect Section of Occupational and Environmental Medicine Department of Medicine [facility] documented in this encounter Plan of Treatment Not on file documented as of this encounter Visit Diagnoses Diagnosis Post concussive syndrome Postconcussion syndrome documented in this encounter Care Teams Medical Office Receptionist Assistant Relationship Specialty Start Date End Date Jeniffer Angulo APRN [address] [place] [address] PCP - General Family Medicine 05/30/16 documented as of this encounter
--- OUTSIDE RECORDS SUMMARY | 2023-11-03 15:55 | XMS_ITS | Encounter Summary ---
[place] [address] Care Team Providers Care Shift Production Associate Name Role Phone Jeniffer Angulo APRN Primary Care Provider [phone] Encounter Details Date Type Department Care Team (Late st Contact Info) Description 06/25/2016 2:00 PM EDT Office Visit [place] [address] Moe Weston, OT 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 [...] She followed up with her PCP in [place]. She developed significant behavior changes, including regression and anxiety. Her PCP sent her to the [facility] ED, where she spent the night and then was transferred to for an inpatient psychiatric admission from May 01, 2016, to May 08, 2016. See discharge summary for details. She has follow up with outpatient Psychiatry in [facility] at [facility]. She is receiving medication and also has seen an furniture detailer. She arrives today with her aunt. Her assistant case manager arrived at the end of the visit. Pertinent History and/or Co-morbidities: Past Medical History: Diagnosis Date ??? Allergy ??? Circulatory disease PAIN: At Rest: 07/07 With Activity: 10/06 Location: Administered the following subtests of the Test of Everyday Attention (TEA). The TEA is a standardized, normed assessment of various forms of attention. 1) Map Search: < 1st percentile 2) Elevator Countin/7 abnormal 3) Elevator Counting with Distraction:310 5th percentile 4) Visual Elevator: 25th percentile for accuracy and 50th percentile for speed 5) Elevator Counting with Reversal: 50th percentile 6) Telephone Search: 25th percentile 7) Telephone Search While Countinst percentile VISION FUNCTIONS: To be assessed TREATMENT TODAY: Skilled discussion of hourly schedule. She has been using the same one over again each day to forceherself into a routine. She was instructed to have an extra piece of paper next to the schedule or a journal where she is documenting the additional tasks she does beyond the schedule each day and how she was doing that evening and the next day. Completed a scavenger lovell as follows. She was provided a map of level 2,3, and 6 and was instructed that i would be her shadow while doing this intervening as necessary. Items to find and prices you have a 50$ limit Advil Tooth brush Bandades Powell sugar free cough drops Contact solution Two pieces of fruit Large coffee. Two children???s books Info to find Outpatient lab hours Document what is on pictures on kramer Places to find items [facility] Pharmacy Outside of outpatient lab [facility]. (6th floor) Comments: the lovell overall was well organized. She made an initial plan in the room and while walking up the pharmacy wrote on her paper where she thought items would be. In the pharmacy she had a hard time locating items resulting in her staring at the shelves for longer than necessary and at one point needing to ask for help to find contact solution despite looking at it as she was asking for help. She was given homework to attempt some cooking before next week for which she plans to cook nachos.She is going to be driven by her aunt to the grocery store for getting the items. CLINICAL DECISION MAKING: Hasmukh Young presents with activity limitations and/or participation restrictions due to performance deficits in immediate recall, delayed memory, selective and shifting attention, which is in turn affecting all areas of executive function. She has done well at home withdaily schedule presenting with a color coded schedule to help her focus on the schedule. She was challenged with selective attention for the scavenger lovell as seen with performance in the pharmacy but her anxiety level was minimal and she performed otherwise effectively. She will benefit from continued OT with next visit potentially doing a cooking task depending on how nachos go vs a problem solving shifting attention task with some level of distraction. Consider visual assessment. She had good rehabilitation potential. Oyster Buyer Goals (to be met by discharge): Date [...] 12 week(s) to progress toward short and termination clerk goals. for Cognitive retraining attention, sequencing, problem [...] syndrome documented in this encounter Care Teams Shift Production Associate Relationship Specialty Start Date End Date Jeniffer Angulo APRN [address] [place] [address] PCP - General Family Medicine 05/30/16 documented as of this encounter
--- OUTSIDE RECORDS SUMMARY | 2023-11-03 15:55 | XMS_ITS | Encounter Summary ---
[place] [address] Care Team Providers Care Assistant Analyst Name Role Phone Jeniffer Angulo APRN Primary Care Provider [phone] Encounter Details Date Type Department Care Team (Late st Contact Info) Description 08/06/2016 9:00 AM EDT Office [place] [id number] Regina Levine, SENIOR PROGRAMMER Cognitive communication deficit Social History Tobacco Use Types Packs/Day [...] as of this encounter Progress Notes * Regina Levine, SENIOR PROGRAMMER - 08/06/2016 9:00 AM EDT Speech-Language Pathology Treatment session 08/06/2016 Total Treatment Time: 58 min. Total Timed Code Treatment: 58 min. KX Modifier used beginning date: Not applied S: Patient arrived on time for today's appointment. ??The room was quiet with limited distractions.Patient has been completing 30 minutes of language based tasks daily, as part of her HEP. She feelsshe has nearly returned to baseline with her cognitive skills, with the exception of word retrieval. She began work on Thursday and feels it went well. She admitted to occasional word searching at work, and has been using strategies to facilitate recall. She has been disclosing information to colleagues and some of the regular customers at work and feels this has helped to decrease pressure/anxietyrelated to deficits. ? O: ??Pt. seen for treatment of cognitive-linguistic skills. ?? Goals: Pt. will take part in continued evaluation. Pt. will verbally state 3 internal memory strategies @ independent level. Patient will verbally state 3 external memory strategies @ independent level. Pt. will verbally state 3 strategies to use when experiencing word finding difficulty @ independentlevel. ? Patient has demonstrated the ability to verbally state 3 compensatory strategies @ independent level. ?? Patient has been using circumlocution, gestures, associations and identifying the first sound ofthe word to facilitate recall outside of the therapy setting, per report. ?? GOAL MET Pt. will demonstrate sustained attention by maintaining focus during a language based task for 15 minutes @ independent level without an increase in symptoms. Pt. will demonstrate selective attention by attending/monitoring salient task details with a language based task for 15 minutes @ independent level. ? Pt will demonstrate use of strategies to improve verbal fluency @ independent level. Reviewed strategies to facilitate a more successful conversational exchange including the following: ?? Limit exposure to crowds and confusion when the plan is to engage in meaningful conversation. ?? Go to restaurants at odd hours to avoid crowds. ?? Plan ahead for social situations and script conversations when possible. For example, think about where you are going and why; who will be there; what are their interests; what are possible questions they may ask. ?? Attending movies, play, sporting events can be a good way to spend time with friends/family while decreasing conversational demand. ?? Prepare for family gatherings by reviewing photo albums, asking a family member to refresh memory about the relatives before the event. ?? Hold important conversations in a quiet environment with limited distraction. Ask people to speak one at time. ?? If questions at a social event become overwhelming, try answering briefly and then turn the question around, asking the same question of the other person. Patient will demonstrate use of strategies to improve auditory comprehension and retention @ independent level. Reviewed strategies to improve auditory comprehension including the following: ?? Decrease distractions. ??Find a quiet environment for communication and turn off the volume on cell phones and other electronic devices. ?? Imagine the speaker in the spotlight and try to focus only on him or her. ? Comment on what you think a person is saying and ask if you understand correctly. ? Be aware of tuning out and daydreaming, being on automatic state pilot, fidgeting, arms crossed, interrupting and finishing sentences. Patient will follow complex verbal directives with 90% accuracy @ independent level. ? A: Patient has returned to work and notes continued improvement with word retrieval. She has been disclosing information regarding her difficulties with word retrieval, and feels this has helped to decrease anxiety/stress when she is unable to retrieve a word. She was able to verbally state several strategies that she has been using to facilitate recall outside of the therapy setting. Provided patient with an extensive packet of language based tasks targeting word retrieval. She will complete thispacket as part of her HEP. Two follow-up visits have been scheduled. ?? P: RECOMMENDATIONS: ?? Direct Speech Pathology intervention to treat the above stated deficits. ? Frequency/Plan of Care: SENIOR PROGRAMMER services 1x/month for 2 additional months as patient's schedule allows. Patient/family expressed agreement with plan. ? Regina Levine MS, [facility]SENIOR PROGRAMMER Speech-Language Pathologist Rehabilitation Medicine Pager # [phone] documented in this encounter Plan of Treatment Not on file documented as of this encounter Visit Diagnoses Diagnosis Cognitive communication deficit documented in this encounter Care Teams Assistant Analyst Relationship Specialty Start Date End Date Jeniffer Angulo APRN [address] [place] [address] PCP - General Family Medicine 05/30/16 documented as of this encounter
--- OUTSIDE RECORDS SUMMARY | 2023-11-03 15:55 | XMS_ITS | Encounter Summary ---
[place] [address] Care Team Providers Care Rn Medical Surgical Name Role Phone Jeniffer Angulo APRN Primary Care Provider [phone] Encounter Details Date Type Department Care Team (Latest Contact Info) Description 07/30/2016 3:30 PM EDT Office Visit [place] [phone] Isabella Buckner, OT Attention and concentration deficit; [...] Progress Notes * Isabella Buckner OT - 07/30/2016 3:30 PM EDT OCCUPATIONAL THERAPY TREATMENT NOTE REFERRAL SOURCE: Rosalia RAZA MD FOLLOW-UP: PRN TOTAL TREATMENT TIME: 55 Minutes TIMED CODE TREATMENT TIME: 55 minutes TFA OCCUPATIONAL PROFILE: PAST MEDICAL HISTORY: 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 She describes bending below a shelf, standing up quickly, and hitting her head. She then went into the bathroom because she was vomiting and lost consciousness in the bathroom and hit her head again when she fell. She was seen at the [facility] ED, where a CT scan was negative, and she was diagnosed with a concussion. She followed up with her PCP in [place]. She developed significant behavior changes, including regression and anxiety. Her PCP sent her to the [facility] ED, where she spent the night and then was transferred to for an inpatient psychiatric admission from May 01, 2016, to May 08, 2016. See discharge summary for details. She has follow up with outpatient Psychiatry in [facility]. She is receiving medication and also has seen an supply chain program manager. She arrives today with her mother Pertinent [...] 6.) work 0 0 Total: Average Score Manhattan Cognitive Assessment (MoCA) Results: Initial eval 07/23/16 [...] the week 03/30 1 Location 03/30 1 [place] Add 1 point if 12 years of [...] 1) Map Search: 10th percentile 2) Elevator Countin normal 3) Elevator Counting with Distraction:11/06 25-50th percentile 4) Visual Elevator: 75th percentile for accuracy and 90th percentile for speed 5) Elevator Counting with Reversal: 50th percentile 6) Telephone Search: 95th percentile 7) Telephone Search While Countin-50th percentile TREATMENT TODAY: Therapeutic discussion related to return to work. Hasmukh reports that she believes she is approved for 12 hrs a week and needs a letter per her PCP to assist in the approval for return to work. Hasmukh would also like a letter that indicates that she can drive. Therapeutic discussion related to return to work- below is a pre-planned schedule for training 2 new employees. She agrees that 4 days for 3 hours would work for her. 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 She would consider using noise cancelling ear plugs when on the coffee machine if needed and there is a rubber matto assist with standing balance and endurance. Return to work responsibilities: ??? Train 2 new employees o Create a schedule for new employers - 3 days to each positions-register, milk, shot position ??? Make drinks For training the new employees New employees working M-F work ?? shift; 1 person in the morning training and 1 in the afternoon ??? White M, T, W o Customer service - Role play with staff to demonstrate how they would respond to difficult customers - Speak clearly, slowly o Teach them how to use Square (ipad)- locate the drinks and ask proper questions o Give correct change o Learn how to swipe on Square ??? Shots , Thu, and following Thursday o How to pull a shot o How to tamp with 35# pressure o How to pull a shot properly (extract) o How to tell a good vs. bad shot (due to timing and length of time waiting) o How to adjust the grind o How to pull decaffeinated drinks o Caring for machine (17,000 dollars) ??? Milk next , Thursday, o What milk goes in each drink o Mix lines for each drink (ex ice drink based on size) o Water-steam vortex o Feel for the correct temperature o After training with water-switch to milk o Check for burning Make drinks ??? Robina Latte o Medium hot robina latte - 2 shots expresso - 1 scoop vanilla - 1 scoop caramel - Steamed 2% milk ??? Annamarie o Small ???not so hot?? o ?? scoop vanilla o ?? scoop chocolate o 2% milk ??? Saida o Large chocolate decadence frappe 2 scoops caramel - 2 scoops of powder (chocolate) - 5 oz of milk - 8 oz ice ??? Mocha o Small hot - 1 scoop chocolate - 2 shots expresso - 2% milk - With whipped cream? White annihilator o Medium iced - 2 shots expresso - 1 scoop of white chocolate and chocolate macadamia nut - Half and half milk ??? Maple Latte o Large - 4 shots expresso - 2 scoops of maple - 2% milk ??? Iced caramel macchiato o Medium - 5 oz half and half - ?? scoop caramel - ?? scoop vanilla - Mix - Caramel around the cup edge - Pour milk mix into cup - Caramel on top of milk mix - 2 shots expresso on top CLINICAL DECISION MAKING: Hasmukh Young presents with continued improvement in her attention, memory, and problem solving ability as seen with the CPTA. Hasmukh is hoping to release of return to workand looking for a letter from a provider to confirm this. Will speak directly with Sotero Weston related to this as Hasmukh believes that she is approved for 12 hrs a week. Hasmukh did well pre-planningand explaining the steps for training new employees, she displayed good memory and was able to verbalize the various signature drink recipes from memory. As seen with the Complex Task Performance Assessment, memory for more challenging tasks continues to be somewhat of an issue and we will use further visits to challenge this combine with reading retention, writing, and problem solving. She will b enefit from continued OT services and has good rehabilitation potential. Next visit: care home goals- add short term goals Dispatcher Chief Coal Slurry Goals (to be met by discharge): Date [...] concussion symptom scale Goal Status: In progress PLAN: The patient is to be seen 1 time(s) per week, for 12 week(s) to progress toward short and longterm goals. for Cognitive retraining attention, sequencing, problem [...] syndrome documented in this encounter Care Teams Rn Medical Surgical Relationship Specialty Start Date End Date Jeniffer Angulo APRN [address] [place] [address] PCP - General Family Medicine 05/30/16 documented as of this encounter
--- OUTSIDE RECORDS SUMMARY | 2023-11-03 15:55 | XMS_ITS | Encounter Summary ---
Author Organization [facility] [place] [address] Care Team Providers [employer] Team Leader Name Role Phone Jeniffer Angulo APRN Primary Care Provider [phone] Reason for Visit * Consultation (Routine) - Specialty Diagnoses / Procedures Referred By Taiwo martinez Referred To Contact Rheumatology Diagnoses LEUKOCYTOCLASTIC VASCULITIS Jeniffer Angulo APRN [address] [place] [address] [facility] [address] [place] [id number] Referral ID Status Reason Start Date Expiration Date V isits Requested Visits Authorized [id number] Consult, Test & Treat [facility] 01/26/2018 01/26/2019 2 2 Encounter Details Date Type Department Care Team (Late st Contact Info) Description 02/09/2018 9:00 AM EST Office [place] [address] Nishant Zapata MD [facility] [address] Leucocytoclastic vasculitis; 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 Social History Tobacco Use Types Packs/Day Years Used Date Smoking Tobacco: Heavy Smoker Cigarettes 0.5 5 Smokeless Tobacco: Former Quit: 04/01/2016 Comments:States heavy smoker 10-15/day Alcohol Use Standard [...] Pulse 84 02/09/2018 9:24 AM EST Temperature - - Respiratory Rate - - Oxygen Saturation 100% 02/09/2018 9:24 AM EST Inhaled Oxygen Concentration - - Weight 90.3 kg (199 lb) 02/09/2018 9:24 AM EST Height 175.3 cm (5' 9) 02/09/2018 9:24 AM EST Body Mass Index 29.39 02/09/2018 9:24 AM EST documented in this encounter Patient Instructions * Patient Instructions* Nishant Zapata MD - 02/09/2018 9:00 AM EST Get labs today at 3L. Call or myDH for results if you don't hear from us by next week. Go back on prednisone, but just 10 mg a day, and stay on that for time being. Rx sent in. Further recommendations pending test results. Follow up in 6 months, but stay in touch. documented in this encounter Progress Notes * Nishant Zapata MD - 02/09/2018 9:00 AM EST Rheumatology Clinic: Dr. Zapata 02/09/2018 [id number] Hasmukh Young is a 22 y.o. 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 She is a generally healthy young woman who has a 7-month-old child. That was complicated by preeclampsia. After delivery, she was on an antihypertensives for about 2 months and then was able to come off. However the baby subsequently developed group B strep bacteremia at 3-1/2 months associated with a fever to 104. The baby recovered from that and is now doing well. Then about 2-3 months ago, the patient developed a cough. She continued to feel poorly. She felt cold and had some chills. Eventually she presented to her provider and was found to have a fever and suspected of having pneumonia. However prior to that, she started to develop skin lesions on her lower extremities. These were small circular lesions that predominantly affectedher pretibial area, but could extend up the thighs and even to her buttocks. They were not painful.However if they went on for a time they would become larger, some would coalesce, and some became slightly raised. They would sometimes heal with a bruise. In any case, she was put on a Z-Ravi for her presumed pneumonia and gradually the cough got better, but she continued to have this skin problem. She was put on 20 mg of prednisone with a taper and therash went away only to return about 3-4 days after stopping. She had a second round of what sounds like 20 mg once a day for 5 or 6 days, again she responded, but again it came back. Right now it is t olerable. Again it is not painful, not pruritic. She notes that it tends to get worse during the course of the day. 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 That began in October. Obviously that requires being on her feet a lot and at the end of a busy day, her legs are swollen and the rash is worse. 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 She had extensive laboratory work already including a negative RADHA, normal inflammatory markers, and a negative ANCA. Unfortunately, she gained weight on the prednisone and she is very unhappy about that. Also she developed an infection at the biopsy site, which is on her lower right pretibial areaand went through a course of Keflex for that. It is healing, but it's slow. It does not seem to be infected at this point. On review of systems, she has had Raynaud's since childhood. That has not worsened. She has a chronic problem with dry mouth, but again that has not changed. She has had some hair falling out but sherelates that to the . No oral or nasal ulcers. No eye dryness. She has never had any kidney problems that she is aware of. She denies thrombocytopenia or leukopenia or significant anemia. She did not think she had any joint problems, but her pelota maker today, Vanda, recalled that on one trip to the emergency room for a flareup of the rash, she was actually sore all over. The patient recalls that that was not specific for the joints. In terms of the group B strep, she does recall being screened for that towards the end of , but there was some problem with the handling of the specimens, and as far she can recall, it is not clear that the negative result was accurate. There are no potential medication culprits. She is not on a control pill. She has been on the 2 antibiotics (Z-ravi and Keflex), but temporally thatdoes not correlate with the onset of the rash. She has had a chest x-ray to see if the presumed pneumonia has resolved and apparently that chest x-ray was normal. She also mentions that she has had aworsening of a chronic problem with migraines just recently. She has had these for years, but againjust recently they have become persistent and sometimes associated with vomiting. She herself does not relate this to the infection, the rash, or the antibiotics. Past Medical History History of TBI with normal CT and MRI of the brain. These were related to head injuries at work back in 2017 History of probable pneumonia. GERD. Ocular hypertension. History of depression and anxiety. Migraine History of preeclampsia. One , no miscarriages. Medications Medications 02/09/18 4323 Medication Sig Taking? predniSONE (DELTASONE) 5 mg Tablet Take 2 tablets by mouth daily. Social History She is single. She has a 1 child. 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 She smoked, but stopped several years ago, a total of 2.5 pack years. No significant alcohol or any drug use. Family History No connective tissue diseases. Review of Systems Positive for fever, chills during her pneumonia with resolution on antibiotics. She did have a mildsore throat at the beginning of the respiratory infection. Positive for Raynaud's. Positive for mild hair loss around . No significant joint pain, fatigue, oral or nasal ulcers, dry eyes, history of renal problems. She has chronic dry mouth. Otherwise, the rheumatology, cardiology, pulmonary, GI, , neurology, dermatology, and hematology review of systems is negative or non-contributory. Physical Exam: She is a pleasant woman, accompanied by a friend, Vanda. Blood pressure 122/75, pulse 84, height 175.3 cm (5' 9), weight 90.3 kg (199 lb), SpO2 100 %. Skin: She has small, several millimeter in diameter circular erythematous lesions, slightly raised,scattered about her lower pretibial area, up to just below the level of the knee. She has the obvious biopsy site in the right lower pretibial area. That has eschar formation and has an aura of the erythema, but is not infected. The lesions are not tender to the touch. Her legs are not particularlyedematous today, but she says they can at the end of a workday. HEENT: PERRL, EOM+, no eye inflammation, no oral ulcers, good moisture. Neck: Supple. Nonspecific bilateral submandibular lymphadenopathy. No thyromegaly. Lungs: Clear. Heart: Regular rhythm and rate without murmur, gallop, or rub. Abdomen: Benign. No masses, tenderness, or organomegaly. Extremities: No edema. Good distal pulses. Musculoskeletal: She has no synovitis in the upper or lower extremities. Neuro: 5/5 proximal muscle strength in the upper and lower extremities. DTRs 2+ and symmetrical. Toes downgoing. Negative Romberg. Assessment & Plan: We had a long discussion about her situation but I think the most likely suspects here are a reaction to infection, /pre-eclampsia (Waldenstrom purpura), much less likely a medication, and even less likely underlying connective tissue disease/HSP/APLS. We'll do a laboratory panel here today, although I suspect that will not give us the answer. We are both hoping that over time this will fade away and not come back. I offered her another lower taper of prednisone,starting at 10 mg a day, but she declined because she does not feel all that badly right now and the prednisone will make her gain even more weight. If her labs are all negative, we may try her on a drug like Plaquenil. Compression hose may also help to counter hydrostatic pressure. If her lab workhas any clues, obviously we will track them down. I will see her in follow-up in 6 months, but she will stay in touch as we try and get this taken care of. She understood the plan. We gave the patient the following recommendations: Patient Instructions Get labs today at 3L. Call or myDH for results if you don't hear from us by next week. Go back on prednisone, but just 10 mg a day, and stay on that for time being. Rx sent in. Further recommendations pending test results. Follow up in 6 months, but stay in touch. Orders Placed This Encounter Procedures ??? GC/Chlamydia (Leb/CGP) Urine ??? GC/Chlam ??? Sedimentation rate ??? CRP, acute inflammation ??? Protein Electrophoresis, serum ??? Extractable Nuclear Antigen (LYDIA) Ab ??? RADHA (LEB/CGP) ??? Hepatitis C Antibody ??? Streptococcal Antibody Panel ??? Angiotensin Converting Enzyme ??? Parvovirus B19 Antibody IgG and IgM ??? Mycoplasma Pneumoniae Ab IgG and IgM ??? Urinalysis with reflex Culture ??? C3 Complement ??? C4 Complement ??? Complement, Total ??? Cardiolipin Antibody Screen ??? Lupus Anticoagulant Panel ??? dRVVT ??? Silica Clotting Time Visit Diagnoses: 1. Leucocytoclastic vasculitis 2. 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 Results for HASMUKH YOUNG ( ) Ref. Range 02/09/2018 10:43 02/09/2018 10:44 02/09/2018 10:45 Sed Rate Latest Ref Range: 0 - 20 mm/hr 14 dRVVT Latest Ref Range: <=1.20 IU/mL 1.14 Silica Clotting Time Latest Ref Range: <=1.16 ratio 1.19 (H) Total Prot Elec Latest Ref Range: 6.1 - 8.0 gm/dL 7.0 Albumin Elect Latest Ref Range: 3.60 - 6.00 gm/dL 4.53 Alpha1-Globulin Latest Ref Range: 0.10 - 0.30 gm/dL 0.20 Alpha2-Globulin Latest Ref Range: 0.40 - 0.90 gm/dL 0.78 Beta Globulin Latest Ref Range: 0.50 - 1.00 gm/dL 0.73 Gamma Globulin Latest Ref Range: 0.50 - 1.30 gm/dL 0.77 M1 Band Latest Ref Range: None Detected None Detected ZACH Latest Ref Range: 8 - 53 unit/L 43 RADHA Latest Ref Range: Neg Neg C3 Complement Latest Ref Range: 90 - 180 mg/dL 136 C4 Complement Latest Ref Range: 10 - 40 mg/dL 27 Complement Total Latest Ref Range: 30 - 75 unit/mL 54 LYDIA Ab Unknown Neg CRP Latest Ref Range: <=4.9 mg/L 2.4 Color UA Latest Ref Range: Yellow Straw Appearance UA Latest Ref Range: Clear Clear Spec [place] UA Latest Ref Range: 1.002 - 1.030 1.014 pH UA Latest Ref Range: 5.0 - 8.0 6.0 Protein UA Latest Ref Range: Negative mg/dL Negative Glucose UA Latest Ref Range: Negative mg/dL Negative Ketones UA Latest Ref Range: Negative mg/dL Negative Bilirubin UA Latest Ref Range: Negative mg/dL Negative Urobilinogen UA Latest Ref Range: Normal mg/dL Normal Blood UA Latest Ref Range: Negative mg/dL Negative Leukocytes UA Latest Ref Range: Negative mcL Negative Nitrite UA Latest Ref Range: Negative Negative Culture Reflexed Unknown No DNase B Ab Latest Ref Range: 0 - 300 unit/mL <72 ASO Titer Latest Ref Range: 0 - 530 IU/mL <20 Chlamydia Gene Amp Latest Ref Range: Negative Negative Chlamydia Source Unknown Urine GC Gene Amp Latest Ref Range: Negative Negative GC Source Unknown Urine M pneumo IgG Latest Ref Range: Negative Positive (A) M pneumo IgM Latest Ref Range: Negative Equivocal (A) M pneumo Ab Interp Unknown IgM result is NOT diagnostic. Confirmatory testing by IFA is required M Pneumo IgM IFA Latest Ref Range: Negative Negative Hepatitis C Ab Latest Ref Range: Negative Negative Parvo B19 IgG Latest Ref Range: Negative Positive (A) Parvo B19 IgM Latest Ref Range: Negative Negative Parvo B19 Intrp Unknown Results suggest past infection. documented in this encounter Plan of Treatment Not on file documented as of this encounter Procedures Procedure Name Priority Date/Time Associated Diagnosis Comments CRP, ACUTE INFLAMMATION Routine 02/09/2018 10:45 AM EST 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 LUPUS ANTICOAGULANT Routine 02/09/2018 1 0:45 AM EST 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 SILICA CLOTTING TIME Routine 02/09/2018 10:45 AM EST 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 DRVVT Routine 02/09/2018 10:45 AM EST 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 EXTRACTABLE NUCLEAR ANTIGEN (LYDIA) AB Routine 02/09/2018 10:45 AM EST 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 M PNEUMO IGM AB IFA Routine 02/09/2018 1 0:45 AM EST MYCOPLASMA PNEUMONIAE AB IGG AND IGM Routine 02/09/2018 10:45 AM EST 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 HEPATITIS C ANTIBODY Routine 02/09/2018 10:45 AM EST 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 PARVOVIRUS B19 ANTIBODY IGG AND IGM Routine 02/09/2018 10:45 AM EST 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 CARDIOLIPIN ANTIBODY SCREEN Routine 02/09/2018 10:45 AM EST 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 SEDIMENTATION RATE Routine 02/09/2018 10 :45 AM EST 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 STREPTOCOCCAL ANTIBODY PANEL Routine 02/09/2018 10:45 AM EST 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 ANGIOTENSIN CONVERTING ENZYME Routine 02/09/2018 10:45 AM EST 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 COMPLEMENT, TOTAL Routine 02/09/2018 10: 45 AM EST 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 C3 COMPLEMENT Routine 02/09/2018 10:45 AM EST 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 C4 COMPLEMENT Routine 02/09/2018 10:45 AM EST 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 RADHA ANTIBODY SCREEN Routine 02/09/2018 1 0:45 AM EST 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 PROTEIN ELECTROPHORESIS, SERUM Routine 02/09/2018 10:45 AM EST 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 URINALYSIS WITH REFLEX CULTURE Routine 02/09/2018 10:44 AM EST 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 GC/CHLAMYDIA Routine 02/09/2018 10:43 AM EST 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 GC/CHLAM Routine 02/09/2018 10:43 AM EST 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 documented in this encounter Results * M pneumo IgM Ab IFA (02/09/2018 10:45 AM EST) Pathologist [facility] M Pneumo IgM IFA (JULY) Negative Negative [facility] Comment: A negative result does not rule out current Mycoplasma pneumoniae infection as the specimen may have been collected prior to development of detectable antibody levels. Repeat testing in 1-2 weeks if clinically indicated. ADDITIONAL INFORMATION M. pneumoniae IgM performed by immunofluorescence antibody (IFA). Test Performed by: [facility] [address] [place] [address] Blood specimen (specimen) 02/09/2018 10:45 AM EST 02/09/2018 10:53 AM EST Nishant Zapata MD IMMUNOLOGY ORDERA BLES Performing Organization Address [facility] Co de Phone Number [facility] [place] [address] * (ABNORMAL) Silica Clotting Time (02/09/2018 10:45 AM EST) Silica Clotting Time 1.19(H) <=1.16 ratio [facility] Comment: A result greater than 1.16 TR is consistent with the presence of lupus anticoagulant. Values of 1.16 to 1.24 in this assay are not definitively positive or negative for the presence of a lupus anticoagulant. The SCT ratio may be falsely elevated in patients on anticoagulants, especially heparins and direct oral anticoagulants. An abnormal test result in an anticoagulated patient must therefore be interpreted with caution, and repeat testing after discontinuing anticoagulation may be appropriate. Blood specimen (specimen) 02/09/2018 10:45 AM EST 02/09/2018 10:53 AM EST Narrative Resulting Agency Comment Spec In Lab Nishant Zapata MD HEMATOLOGY ORDERA BLES Performing Organization Address [facility] Co de Phone Number [facility] [place] [address] * dRVVT (02/09/2018 10:45 AM EST) dRVVT 1.14 <=1.20 IU/mL [facility] Comment: A result greater than 1.20 TR is consistent with the presence of lupus anticoagulant. Values of 1.20 to 1.30 in this assay are not definitively positive or negative for the presence of a lupus anticoagulant. The DRVVT ratio may be falsely elevated in patients on anticoagulants, especially heparins and direct oral anticoagulants. An abnormal test result in an anticoagulated patient must therefore be interpreted with caution, and repeat testing after discontinuing anticoagulation may be appropriate. Blood specimen (specimen) 02/09/2018 10:45 AM EST 02/09/2018 10:53 AM EST Narrative Resulting Agency Comment Spec In Lab Nishant Zapata MD HEMATOLOGY ORDERA BLES Performing Organization Address [facility] Co de Phone Number [facility] [place] [address] * Cardiolipin Antibody Screen (02/09/2018 10:45 AM EST) Cardiolipin Antibody IgG <9.4 <=14.9 GPL unit(s) [facility] Comment: Ranges ?? GPL ------ ?? --- Negative ?? <=14.9 Indeterminate ??15.0 - 20.0 Low/Medium Positive 20.1 - 80.0 High Positive ??>80.0 Cardiolipin Antibody IgM <9.4 <=12.5 MPL unit(s) [facility] Comment: Ranges ?? MPL ------ ?? --- Negative ?? <=12.5 Indeterminate ??12.6 - 20.0 Low/Medium Positive 20.1 - 80.0 High Positive ??>80.0 Blood specimen (specimen) 02/09/2018 10:45 AM EST 02/09/2018 2:04 PM EST Narrative Resulting Agency Comment Spec In Lab Nishant Zapata MD IMMUNOLOGY ORDERA BLES Performing Organization Address [facility] Co de Phone Number [facility] [place] [address] * Complement, Total (02/09/2018 10:45 AM EST) Complement, Total 54 30 - 75 unit/mL [facility] Comment: Test Performed by: [facility] - [address] [address] Blood specimen (specimen) 02/09/2018 10:45 AM EST 02/09/2018 12:22 PM EST Narrative Resulting Agency Comment Spec In Lab Nishant Zapata MD CHEMISTRY ORDERAB LES Performing Organization Address City/[facility]/ZIP Co de Phone Number [facility] [place] [address] * C4 Complement (02/09/2018 10:45 AM EST) Complement C4 27 10 - 40 mg/dL [facility] Blood specimen (specimen) 02/09/2018 10:45 AM EST 02/09/2018 10:53 AM EST Narrative Resulting Agency Comment Spec In Lab Nishant Zapata MD CHEMISTRY ORDERAB LES Performing Organization Address City/[facility] Co de Phone Number [facility] [place] [address] * C3 Complement (02/09/2018 10:45 AM EST) Complement C3 136 90 - 180 mg/dL [facility] Blood specimen (specimen) 02/09/2018 10:45 AM EST 02/09/2018 10:53 AM EST Narrative Resulting Agency Comment Spec In Lab Nishant Zapata MD CHEMISTRY ORDERAB LES Performing Organization Address [facility] Co de Phone Number [facility] [place] [address] * (ABNORMAL) Mycoplasma Pneumoniae Ab IgG and IgM (02/09/2018 10:45 AM EST) M Pneumo IgG (JULY) Positive(A) Negative [facility] Comment: Test Performed by: [facility] - [address] [address] M Pneumo IgM (JULY) Equivocal(A ) Negative [facility] Comment: Test Performed by: [facility] - [place] [id number] [place] [address] M Pneumo Ab Interp (JULY) SEE COMMENTS [facility] Comment: IgM result is NOT diagnostic. Confirmatory testing by immunofluorescence antibody (IFA) is required and has been ordered under test Mycoplasma pneumonia Antibody, IgM by Immunofluorescence Assay (IFA), serum. ADDITIONAL INFORMATION This test has been modified from the ex chef's instructions. Its performance characteristics were determined by [facility] in a manner consistent with CLIA requirements. This test has not been cleared or approved by the U.S. Food and Drug Administration. Test Performed by: [facility] - [address] [address] Blood specimen (specimen) 02/09/2018 10:45 AM EST 02/09/2018 12:31 PM EST Narrative Resulting Agency Comment Spec In Lab Nishant Zapata MD LAB SEND OUT KELLY JOSEPH Performing Organization Address [facility] Co de Phone Number [facility] [place] [address] * (ABNORMAL) Parvovirus B19 Antibody IgG and IgM (02/09/2018 10:45 AM EST) Parvo B19 Igg (JULY) Positive(A) Negative [facility] Comment: Test Performed by: [facility] [employer] - [address] [address] Parvo B19 IgM (JULY) Negative Negative [facility] Comment: Test Performed by: [facility] - [address] [address] Parvo B19 Intrp (JULY) SEE COMMENT [facility] Comment: RESULT: Results suggest past infection. ADDITIONAL INFORMATION This test has been modified from the ex chef's instructions. Its performance characteristics were determined by [facility] in a manner consistent with CLIA requirements. This test has not been cleared or approved by the U.S. Food and Drug Administration. Test Performed by: [facility] [employer] - [address] [address] Blood specimen (specimen) 02/09/2018 10:45 AM EST 02/09/2018 12:31 PM EST Narrative Resulting Agency Comment Spec In Lab Nishant Zapata MD LAB SEND OUT KELLY JOSEPH [facility] [place] [address] * Angiotensin Converting Enzyme (02/09/2018 10:45 AM EST) [facility] Zach (JULY) 43 8 - 53 unit/L [facility] Comment: Test Performed by: [facility] [address] [place] [address] Blood specimen (specimen) 02/09/2018 10:45 AM EST 02/09/2018 12:31 PM EST Narrative Resulting Agency Comment Spec In Lab Nishant Zapata MD LAB SEND OUT KELLY JOSEPH Performing Organization Address [facility] Co de Phone Number [facility] [place] [address] * Streptococcal Antibody Panel (02/09/2018 10:45 AM EST) [facility] Aso Titer (JULY) <20 0 - 530 IU/mL [facility] Comment: Test Performed by: [facility] [address] [place] [address] Dnase B Ab (JULY) <72 0 - 300 unit/mL [facility] Comment: Test Performed by: [facility] [address] [address] Blood specimen (specimen) 02/09/2018 10:45 AM EST 02/09/2018 12:31 PM EST Narrative Resulting Agency Comment Spec In Lab Nishant Zapata MD LAB SEND OUT KELLY JOSEPH Performing Organization Address City/[facility]/ZIP Co de Phone Number [facility] [place] [address] * Hepatitis C Antibody (02/09/2018 10:45 AM EST) [facility] Hepatitis C Antibody Negative Negative [facility] Blood specimen (specimen) 02/09/2018 10:45 AM EST 02/09/2018 10:53 AM EST Narrative Resulting Agency Comment Spec In Lab Nishant Zapata MD CHEMISTRY ORDERAB LES Performing Organization Address [facility]/ZIP Co de Phone Number [facility] [place] [address] * RADHA (LEB/CGP) (02/09/2018 10:45 AM EST) RADHA Neg Neg [facility] Blood specimen (specimen) 02/09/2018 10:45 AM EST 02/09/2018 2:04 PM EST Narrative Resulting Agency Comment Spec In Lab Nishant Zapata MD LAB SEND OUT ORDE RABLES Performing Organization Address [facility] de Phone Number [facility] [place] [address] * Extractable Nuclear Antigen (LYDIA) Ab (02/09/2018 10:45 AM EST) [facility] LYDIA Ab Test ?Result ?Flag ??Unit ??RefValue Ab to Extractable Nuclear Ag Eval,S ??SS-A/Ro Ab, IgG, S ?<0.2 ?U ? <1.0 (Negative) ??SS-B/La Ab, IgG, S ?<0.2 ?U ? <1.0 (Negative) ??Sm Ab, IgG, S ? <0.2 ?U ? <1.0 (Negative) ??RETURNED GOODS REPAIRER Ab, IgG, S ?<0.2 ?U ? <1.0 (Negative) ??Scl 70 Ab, IgG, S ? <0.2 ?U ? <1.0 (Negative) ??Freda 1 Ab, IgG, S ? <0.2 ?U ? <1.0 (Negative) ?Test Performed by: ?[facility] ?[address] [place] [address] [facility] Blood specimen (specimen) 02/09/2018 10:45 AM EST 02/09/2018 12:31 PM EST Narrative Resulting Agency Comment Spec In Lab Nishant Zapata MD LAB SEND OUT KELLY JOSEPH Performing Organization Address City/State/[facility] Co de Phone Number [facility] [place] [address] * Protein Electrophoresis, serum (02/09/2018 10:45 AM EST) Total Prot Electrophoresis 7.0 6.1 - 8.0 gm/dL [facility] Albumin Electrophoresis 4.53 3.60 - 6.00 gm/dL [facility] Alpha 1 Globulin 0.20 0.10 - 0.30 gm/dL [facility] Alpha 2 Globulin 0.78 0.40 - 0.90 gm/dL [facility] Beta Globulin 0.73 0.50 - 1.00 gm/dL [facility] Gamma Globulin 0.77 0.50 - 1.30 gm/dL [facility] M1 Band None Detected None Detected [facility] Blood specimen (specimen) 02/09/2018 10:45 AM EST 02/09/2018 10:53 AM EST Narrative Resulting Agency Comment Spec In Lab Nishant Zapata MD CHEMISTRY ORDERAB LES Performing Organization Address City/[facility] Co de Phone Number [facility] [place] [address] * CRP, acute inflammation (02/09/2018 10:45 AM EST) C-Reactive Protein 2.4 <=4.9 mg/L [facility] Blood specimen (specimen) 02/09/2018 10:45 AM EST 02/09/2018 10:53 AM EST Narrative Resulting Agency Comment Spec In Lab Nishant Zapata MD CHEMISTRY ORDERAB LES Performing Organization Address [facility] Co de Phone Number [facility] [place] [address] * Sedimentation rate (02/09/2018 10:45 AM EST) Sedimentation Rate Automated 14 0 - 20 mm/hr [facility] Blood specimen (specimen) 02/09/2018 10:45 AM EST 02/09/2018 10:53 AM EST Narrative Resulting Agency Comment Spec In Lab Nishant Zapata MD HEMATOLOGY ORDERA BLES Performing Organization Address [facility] Co de Phone Number [facility] [place] [address] * Urinalysis with reflex Culture (02/09/2018 10:44 AM EST) Glucose, Urine Dipstick Negative Negative mg/dL [facility] Protein, Urine Dipstick Negative Negative mg/dL [facility] Bilirubin, Urine Dipstick Negative Negative mg/dL [facility] Comment: Clinical correlation required for positive Urine Bilirubin results as false positive may occur with some drugs and drug related products. If a false positive is suspected a serum total bilirubin should be considered if clinically indicated. Urobilinogen, Urine Dipstick Normal Normal mg/dL [facility] pH, Urn (dipstick) 6.0 5.0 - 8.0 [facility] Blood, Urine Dipstick Negative Negative mg/dL [facility] Ketone, Urine Dipstick Negative Negative mg/dL [facility] Nitrite, Urine Dipstick Negative Negative [facility] Leukocytes, Urine Dipstick Negative Negative [facility] Appearance, Urine Dipstick Clear Clear [facility] Specific [place] Urine Automated 1.014 1.002 - 1.030 [facility] Color, Urine Dipstick Straw Yellow [facility] Reflex to Culture No [facility] Urine specimen (specimen) 02/09/2018 10:44 AM EST 02/09/2018 10:51 AM EST Narrative Resulting Agency Comment Spec In Lab Nishant Zapata MD URINE ORDERABLES [facility] [place] [address] * GC/Chlam (02/09/2018 10:43 AM EST) GC Gene Amp Negative Negative [facility] Comment: The only FDA approved specimen types for this assay are cervical, vaginal, urethral and urine. Non-FDA approved sources are eye, throat and rectal and have been internally validated. GC Source Urine [facility] Chlamydia Gene Amp Negative Negative [facility] Comment: The only FDA approved specimen types for this assay are cervical, vaginal, urethral and urine. Non-FDA approved sources are eye, throat and rectal and have been internally validated. 

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
--- OUTSIDE RECORDS SUMMARY | 2023-11-03 15:55 | XMS_ITS | Encounter Summary ---
[place] [address] Care Team Providers Care Test Kitchen Home Economist Name Role Phone Jeniffer Angulo APRN Primary Care Provider [phone] Reason for Visit * Occupational Therapy (Routine) - Closed Specialty Diagnoses / Procedures Referred By Contac t Referred To Contact Occupational Therapy Diagnoses History of head injury. Jeniffer Angulo APRN [address] [place] [address] [facility] [place] [address] Referral ID Status Reason Start Date Expiration Date V isits Requested Visits Authorized [id number] Closed Consult, Test & [facility] 06/02/2016 06/02/2017 1 1 Encounter Details Date Type Department Care Team (Late st Contact Info) Description 06/09/2016 3:00 PM EDT Office Visit [place] [address] Moe Weston, OT [facility] PHYSICAL MEDICINE & [place] [address] Post concussive syndrome Social History Tobacco Use [...] as of this encounter Progress Notes * Trista Moe Twila, OT - 06/09/2016 3:00 PM EDT OCCUPATIONAL THERAPY INITIAL EVALUATION REFERRAL SOURCE: Rosalia RAZA MD FOLLOW-UP: PRN TOTAL TREATMENT TIME: 60 Minutes TIMED CODE TREATMENT TIME: 60 minutes OCCUPATIONAL PROFILE: PAST MEDICAL HISTORY: Ms. 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 She describes bending below a shelf, standing up quickly, and hitting her head. She then went into the bathroom because she was vomiting and lost consciousness in the bathroom and hit her head again when she fell. She was seen at the [facility] ED, where a CT scan was negative, and she was diagnosed with a concussion. She followed up with her PCP in [place]. She developed significant behavior changes, including regression and anxiety. Her PCP sent her to the [facility] ED, where she spent the night and then was transferred to for an inpatient psychiatric admission from May 01, 2016, to May 08, 2016. See discharge summary for details. She has follow up with outpatient Psychiatry in [facility]. She is receiving medication and also has seen an steamfitter supervisor. She arrives today with her aunt. Pertinent History and/or Co-morbidities: Past Medical History: Diagnosis Date ??? Allergy ??? Circulatory disease PAIN: At Rest: 10 With Activity: 01/06 went to the ER a few days ago due to the extent of her headache and she required morphine Location: LIVING SITUATION: Hasmukh Young lives in a one level home with her mom and her dog PRIOR FUNCTIONAL STATUS: LEVEL OF ASSIST ADL independent MOBILITY independent IADL independent COGNITIVE- COMMUNICATION SKILLS independent CURRENT ADL PERFORMANCE: (information gathered via patient/caregiver interview)iscompleting all other self care tasks but is limited by memory ADL LEVEL OF ASSIST POSITION ADAPTIVE EQUIPMENT NOTES Bed mobility Bathing Forgets when she last showered so sometimes misses a whole. (unsupported stand, supported stand, unsupported sit, supported short sit, wheelchair level) Needs to have someone in the bathroom due to having panic attacks and domingo dizzy Tub/shower transfer supervised Grooming UE dressing LE dressing Donning Coat Donning shoes Toilet transfer LE clothing management Perineal Hygiene Eating finger foods Eating solid foods Eating liquid foods Drinking Bladder/Bowel Management continent CURRENT INSTRUMENTAL ADL PEFORMANCE: MEAL PREPARATION (X) NOTES/ ADAPTIVE EQUIPMENT multi-dish hot meal one dish hot meal hot beverage/re-heat prepared food cold meal self-serve Other Forgetting oven on with food in it and forgetting stove top on Needs help cooking. She can not multitask. Unable to cut onions and heat something at the same time GROCERY SHOPPIN. composing shopping list, 2. locating desired items, 3. selecting purchases, 4.transporting items (X) NOTES/ ADAPTIVE EQUIPMENT 4/4 without assistance 3/4 without assistance 2/4 without assistance 1/4 without assistance Dependent on assistance for 4/4 Other Limited by panic disorder and agoraphobia. CLOTHING CARE: 1. Collecting clothing and supplies, 2. Sorting clothing, 3. Operating washer/dryer,4. Folding, 5. Putting away clothing (X) NOTES/ ADAPTIVE EQUIPMENT 4/4 without assistance 3/4 without assistance 2/4 without assistance 1/4 without assistance Dependent on assistance for 4/4 Other Mom does this. She does not remember to do it LIGHT CLEANIN. making bed, 2. Straightening/dusting, 3. Vacuuming, 4. washing dishes (X) NOTES/ADAPTIVE EQUIPMENT 4/4 without assistance 3/4 without assistance 2/4 without assistance 1/4 without assistance other Does not remember to do this or cant stay focused on it HEAVY CLEANING TASKS: 1. Mopping/scrubbing floor, 2. Taking out the garbage, 3. Changing bed linens, 4. Washing bathroom (X) NOTES/ ADAPTIVE EQUIPMENT 4/4 without assistance 3/4 without assistance 2/4 without assistance 1/4 without assistance Other Does not do this. MONEY MANAGEMENT (X) NOTES/ ADAPTIVE EQUIPMENT Complex Transactions Payout correct money/change Pay out money for simple transactions Identify blanchard/coin correctly Unable to complete transactions Other Mom and dad are paying some of her bills. She does not have any workers comp money coming in and would not rememebr to pay them WRITTEN COMMUNICATION (X) NOTES/ ADAPTIVE EQUIPMENT 1 page with good legibility Legibility declines after 1 page Legibility declines after 1/2 page Biographical information with fair/good legibility Biographical information with poor legibility Unable to perform writing Other She has attempted to email and old teacher but is unable to organize a few paragraph message PHONE USE (X) NOTES/ ADAPTIVE EQUIPMENT Independent in phone use including content Place informational call with verbal cues/dials phone Dials familiar numbers with strategies Answers phone but cannot place call Unable to use phone Other Mom puts it on speaker phone so she can listen in an help. She has panic attack with every phone call MEDICATION MANAGEMENT (X) NOTES/ ADAPTIVE EQUIPMENT Independent managing medication/medication information/refills Independent with modificantions Takes medications with setup or verbal cues for refill Occasional assist with medication and dependent for refill Frequent verbal cues to take medication Assist to take all medication Other This takes a lot of focus to fill her pill box. Otherwise she can not remember if she took it. 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 Gets board and impatient easily. 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 Playing with her dog. Going for hikes. She likes to work. 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 PERFORMANCE DEFICITS: Hasmukh Young identifies difficulty with the following functional activities using the Patient Specific Functional Scale (PSFS): 0/10 (unable to perform) to 10/10 (Able to perform without difficulty) Activity At Evaluation 1.) cooking 6 2.) bathing and dressing 3 3.) home management 4 4.) sleep 5 5.) being with her dog and walking her 0 6.) work 0 Total: Average Score OBJECTIVE: FUNCTIONAL MOBILITY: walked into and out of treatment room with maintained balance MENTAL FUNCTION: Global mental functions Consciousness/ state of awareness and alertness: person, place and situation Temperament and personality: Appropriate. Specific mental functions Nixon Cognitive Assessment (MoCA) Results: Comments Visuospatial/Exec 1/ Trails Test 0/1 Cube Copy 03/30 Clock: Contour 0/ Clock: Numbers 03/30 Clock: Hands Naming 3/3 (of 3) Attention 0/1 Repeat forward 0/1 Repeat backwards 03/30 Tapping for letter A 3/3 Serial 7 Subtraction (3pts=4+; 2pts=2+; 1pt=1) Language 0/2 Repeating Sentences Fluency 0/1 Word Naming (1pt=11+ words) Abstraction 2/2 Similarities (Associations) Delayed Recall 3/5 (uncued) Orientation 0/1 Month 03/30 Date 03/30 Year 03/30 Day of the week 03/30 Location 03/30 City Add 1 point if 12 years of education or less TOTAL 20/30 Score of 26 or greater considered normal VISION FUNCTIONS: To be assessed TREATMENT TODAY: Evaluation Educated on the need for an appropriate challenge and staying within her abilities She was provided 12 copies of an hourly daily schedule with a to do list We completed the to do list for tomorrow with moderate assistance. She then transitioned this list over into and hourly schedule with minimal cueing. She was instructed to fill this out each morning and to leave in a very visible spot in her house such as the fridge or kitchen table. CLINICAL DECISION MAKING: Hasmukh Young presents with activity limitations and/or participation restrictions due to performance deficits in immediate recall, delayed memory, selective and shifting attention, which is in turn affecting all areas of executive function. These impairments have a significant impact on the patient's performance in the following areas of occupation: BADLs, IADLs, rest/sleep, education, work, leisure, driving, and social participation. She has had limited ability to remember to shower, is having safety concerns with cooking, forgetting her dog outside, and is unableto remember any home management tasks. Anxiety has also been a major limiting factor since the injury which is preventing her from partaking in community tasks. Patient will benefit from outpatient OT services using both rehabilitative and compensatory approaches to maximize safety and independencewith BADL/ IADL, memory, and attention to facilitate return to premorbid activities. Prison Goals (to be met by discharge): Date [...] Goal Status: In progress Hasmukh Young will tolerate administration of the TEA. Goal Status: In progress PLAN: The patient is to be seen 1 time(s) per week, for 12 week(s) to progress toward short and helmet hat brim cutter goals. for Cognitive retraining attention, sequencing, problem [...] syndrome documented in this encounter Care Teams Test Kitchen Home Economist Relationship Specialty Start Date End Date Jeniffer Angulo APRN [address] [place] [address] PCP - General Family Medicine 05/30/16 documented as of this encounter
--- OUTSIDE RECORDS SUMMARY | 2023-11-03 15:55 | XMS_ITS | Encounter Summary ---
[place] [address] Care Team Providers Care Rnp Name Role Phone Jeniffer Angulo APRN Primary Care Provider [phone] Reason for Visit * Psychiatric (Routine) - Closed Specialty Diagnoses / Procedures Referred By Contac t Referred To Contact Psychiatry Diagnoses Post concussive syndrome Rosalia Rivera TEACHER SELECTION SPECIALIST [facility] [place] [address] [facility] [address] [place] [address] Referral ID Status Reason Start Date Expiration Date V isits Requested Visits Authorized [id number] Closed Consult & Test 05/06/2016 05/06/2017 1 1 Encounter Details Date Type Department Care Team (Latest Contact Info) Description 08/20/2016 2:00 PM EDT Office Visit Psychiatry [place] [address] Rosalia Rivera TEACHER SELECTION SPECIALIST [facility] [place] [address] Attention and concentration deficit; Cognitive communication deficit; Post concussive syndrome Social History Tobacco [...] as of this encounter Progress Notes * Rosalia Rievra, SUELLEN - 08/20/2016 2:00 PM EDT Problem Focused Outpatient Progress Note: TBI Encounter Date: 08/20/16 Chief Complaint: Visit for rehabilitation needs s/p head trauma Date of Injury: 04/01/16 Hasmukh Young is a 21 y.o. female was referred by Dr Curtis and states that the reason for this visit or primary concern to be addressed today is review of TBI rehab needs. Please see history documented by other providers in the medical record. In brief, Hasmukh sustained a concussive head trauma in March with change in functional status since. Supports and services inplace and Dr Curtis is managing return to work plan. Identified problems for this visit: 1. Attention and concentration deficit 2. Cognitive communication deficit 3. Post concussive syndrome Allergies and Medications: Allergies Allergen Reactions ??? Codeine Shortness Of Breath Patient has breathing difficulties with this med Current Outpatient Prescriptions on File Prior to Visit Medication Sig Dispense Refill ??? LORazepam (ATIVAN) 0.5 mg Tablet Take [...] facility-administered medications on file prior to visit. Social History: Social History Substance Use Topics ??? Smoking status: Former Smoker Packs/day: 0.25 Years: 5.00 Types: Cigarettes ??? Smokeless tobacco: Former User Quit date: 04/01/2016 ??? Alcohol use No Comment: haven't drank since I hit my head, it will slow me down Subjective: Symptom checklist (in the last week) 0=none, 1-2=mild, 3-4=moderate, 5-6=severe Date 08/20 Comments Physical symptoms headache 0 nausea 0 vomiting 0 balance problem 0 dizziness 0 visual problems 0 fatigue 2 sensitivity to light 0 sensitivity to sound / noise 0 numbness / tingling 0 pain other than headache 0 Cognitive symptoms feeling mentally foggy 2 feeling slowed down 2 difficulty concentrating 0 difficulty remembering 0 Sleep drowsiness 3 sleeping less than usual 0 sleeping more than usual 5 trouble falling asleep 0 Emotional symptoms irritability 0 sadness 2 nervousness 3 feeling more emotional 2 Additional ROS: Hasmukh Young denies recent illness, and has had no new injury. Feeling overall relatively well. Symptoms improving Objective: Hasmukh Young is a very pleasant young woman who is alert, oriented to person, place, time and condition. she makes good eye contact and is able to engage in a linear and logical conversation about the injury symptoms and plan of care. she is not tangential. Attention and concentration is appropriate for the context of this evaluation. she can follow multi-step directions, retain new information and demonstrate the ability to problem solve hypothetical scenarios. She has a minor delay is responding to questions and defers to family and supports in the room frequently. Assessment / Recommendations: Hasmukh Young is a 21 y.o. female who is seen for symptoms followingconcussion. A concussion is defined as a trauma to the head with ANY of the following: Any period of loss of consciousness; Any loss of memory for events immediately before or after the accident (amnesia) Any alteration in mental state at the time of the accident (e.g., feeling dazed, disoriented, or confused) Any focal neurological deficit(s). Hasmukh Young had change in mental status following her trauma and therefore meets the criteria for this diagnosis. We have provided education about the prevalence, etiology and natural recovery of post concussive symptoms, especially headache, vision changes, fatigue, irritability and dizziness. We have discussedhow to manage symptoms with good nutrition, hydration, sleep hygiene, routine, control of stimulation in the environment and removal of additional irritants such as alcohol. Discussed the importance of stress management and risk for poor judgment when making demands for performance from the symptomatic brain. Encouraged safe, light physical activity. She has appropriate rehabilitation services in place (OT especially helpful in building work capacity). Focused conversation on resiliency and management of cognitive fatigue in meeting functional goals. Follow up visit / return to clinic: prn New Patient visit: 15 of this 20 minute visit (>than 50%) was spent on counseling and discussionrelated to recovery from traumatic brain injury and rehabilitation plan as discussed above. Nori Rivera APRN documented in this encounter Plan of Treatment Scheduled Referrals Name Type Priority Associated Diagnoses Order Schedule Referral to Neuropsychology Outpatient Referral Routine Post concussive syndrome Ordered: 05/06/2016 documented as of this encounter Visit Diagnoses Diagnosis Attention and concentration deficit Attention or concentration deficit Cognitive communication deficit Post concussive syndrome Postconcussion syndrome documented in this encounter Care Teams Rnp Relationship Specialty Start Date End Date Jeniffer Angulo APRN [address] [place] [address] PCP - General Family Medicine 05/30/16 documented as of this encounter
--- OUTSIDE RECORDS SUMMARY | 2023-11-03 15:55 | XMS_ITS | Encounter Summary ---
Author Organization [facility] [place] [address] Care Team Providers Care Debt Counselor Name Role Phone Jeniffer Angulo APRN Primary Care Provider [phone] Encounter Details Date Type Department Care Team (Late st Contact Info) Description 09/11/2016 Telephone [place] [id number] Regina Levine, DEVELOPER ADVOCATE Social History Tobacco Use Types Packs/Day Years [...] on file documented as of this encounter Miscellaneous Notes * Telephone Encounter - Regina Levine, DEVELOPER ADVOCATE - 09/11/2016 12:42 PM EDT Telephone Note 09/10/16 Caller Regina Levine MS, CCC-DEVELOPER ADVOCATE, communicated with Hasmukh Young regarding DEVELOPER ADVOCATE appointmentsscheduled for 09/10/16 and 10/08/16. At the last DEVELOPER ADVOCATE appointment, the plan was made to cancel upcoming visits if Hasmukh had progressed to a point where they were no longer needed. Hasmukh feels she has n early returned to her baseline with her word retrieval skills. No further DEVELOPER ADVOCATE services are indicated at this time and the 09/10/16 and 10/08/16 visits have been cancelled. documented in this encounter Plan of Treatment Not on file documented as of this encounter Visit Diagnoses Not on filedocumented in this encounter Care Teams Debt Counselor Relationship Specialty Start Date End Date Jeniffer Angulo APRN [address] [place] [address] PCP - General Family Medicine 05/30/16 documented as of this encounter
--- OUTSIDE RECORDS SUMMARY | 2023-11-03 15:55 | XMS_ITS | Encounter Summary ---
Author Organization [facility] Address [facility] [place] [address] Care Team Providers Care Legal Support Analyst Name Role Phone Jeniffer Angulo APRN Primary Care Provider [phone] Encounter Details Date Type Department Care Team (Late st Contact Info) Description 07/01/2016 Notes Only Care Management [facility] [place] [address] Xochitl Chandler MSW Social History Tobacco Use [...] Progress Notes * Xochitl Chandler MSW - 07/01/2016 3:45 PM EDT [facility] SOCIAL WORK CONTINUING WEB DEVELOPMENT CONSULTANT Pt's mother calls with info that pt ahs found someone closer to home to provied Neuro PT. Pt will ask her CONTACT LENS LATHE OPERATOR on to print out a copy of the ov note from PT so she can provide to new PT near her home. documented in this encounter Plan of Treatment Not on file documented as of this encounter Visit Diagnoses Not on filedocumented in this encounter Care Teams Legal Support Analyst Relationship Specialty Start Date End Date Jeniffer Angulo APRN [address] [place] [address] PCP - General Family Medicine 05/30/16 documented as of this encounter
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
--- OUTSIDE RECORDS SUMMARY | 2023-11-03 15:55 | XMS_ITS | Encounter Summary ---
Author Organization [facility] [place] [address] Care Team Providers Care Cognos Analyst Name Role Phone Jeniffer Angulo APRN Primary Care Provider [phone] Encounter Details Date Type Department Care Team (Late st Contact Info) Description 09/11/2016 Notes Only [place] [address] Isabella Curtis MD [facility] [place] [address] Social History Tobacco Use Types Packs/Day Years [...] Progress Notes * Isabella Curtis MD - 09/11/2016 6:02 PM EDT I received a call from Ms. Hector Bush's nurse case management associate, on 09/10/2016 regarding need for a possible change to her work release. Call returned today. I left a message for Xochitl to call and speak to [facility] MD clinic nurses at [phone] if an updated workers' compensation form is needed. Otherwise, I will see Ms. Young at her next visit. Isabella Curtis MD, PhD, MPH, FACOEM Snack Bar Cashier Section of Occupational and Environmental Medicine Department of Medicine [facility] documented in this encounter Plan of Treatment Not on file documented as of this encounter Visit Diagnoses Not on filedocumented in this encounter Care Teams Cognos Analyst Relationship Specialty Start Date End Date Jeniffer Angulo APRN [address] [place] [address] PCP - General Family Medicine 05/30/16 documented as of this encounter
--- OUTSIDE RECORDS SUMMARY | 2023-11-03 15:55 | XMS_ITS | Encounter Summary ---
[place] [address] Care Team Providers Care Jewelry Technician Name Role Phone Jeniffer Angulo APRN Primary Care Provider [phone] Encounter Details Date Type Department Care Team (Late st Contact Info) Description 07/31/2016 11:00 AM EDT Office [place] [id number] Regina Levine, STAPLE FIBER WASHER Cognitive communication deficit Social History Tobacco Use [...] this encounter Progress Notes * Regina Levine, STAPLE FIBER WASHER - 07/31/2016 11:00 AM EDT Speech-Language Pathology Treatment session 07/31/2016 Total Treatment Time: 55 min. Total Timed Code Treatment: 55 min. KX Modifier used beginning date: Not applied S: Patient arrived on time for today's appointment. The room was quiet with limited distractions. Patient has been completing 30 minutes of language based tasks daily, as part of her HEP. Patient reports improvements with memory and word retrieval. ?? O: Pt. seen for treatment of cognitive-linguistic skills. Goals: Pt. will take part in continued evaluation. Pt. will verbally state 3 internal memory strategies @ independent level. Patient will verbally state 3 external memory strategies @ independent level. Pt. will verbally state 3 strategies to use when experiencing word finding difficulty @ independentlevel. ? Patient was able to independently recall strategies for word retrieval including associations and visualization at independent level. Reviewed additional strategies including the following: identify the first sound, gestures, and circumlocution (Describing object, where you would find it, how you would use it, etc). Pt. will demonstrate sustained attention by maintaining [...] auditory comprehension and retention @ independent level. Provided patient education on strategies to improve auditory comprehension including the following: ?? Decrease distractions. Find a quiet environment for communication and turn off the volume on cell phones and other electronic devices. ?? Imagine the speaker in the spotlight and try to focus only on him or her. ?? Comment on what you think a person is saying and ask if you understand correctly. ?? Be aware of tuning out and daydreaming, being on automatic gliding pilot instructor, fidgeting, arms crossed, interrupting and finishing sentences. Patient will follow complex verbal directives with 90% accuracy @ independent level. ?? A: Patient notes improvements with memory and word retrieval since the last therapy session. She was able to verbally state two strategies to facilitate recall when experiencing word finding difficulty in therapy today, and reports carryover with these strategies outside of the therapy setting. Reviewed strategies to promote a more successful conversational exchange, including strategies to improve auditory comprehension and retention. Patient expressed a general understanding. A follow-up visit has been scheduled for next week. P: RECOMMENDATIONS: ?? Direct Speech Pathology intervention to treat the above stated deficits. ?? Frequency/Plan of Care: STAPLE FIBER WASHER services 1x/week for 3 months as patient's schedule allows. Patient/family expressed agreement with plan. ? Regina Levine MS, CCC-STAPLE FIBER WASHER Speech-Language Pathologist Rehabilitation Medicine Pager # [phone] documented in this encounter Plan of Treatment Not on file documented as of this encounter Visit Diagnoses Diagnosis Cognitive communication deficit documented in this encounter Care Teams Jewelry Technician Relationship Specialty Start Date End Date Jeniffer Angulo APRN [address] [place] [address] PCP - General Family Medicine 05/30/16 documented as of this encounter
--- OUTSIDE RECORDS SUMMARY | 2023-11-03 15:55 | XMS_ITS | Encounter Summary ---
[place] [address] Care Team Providers Care Gas Technician Name Role Phone Jeniffer Angulo APRN Primary Care Provider [phone] Encounter Details Date Type Department Care Team (Late st Contact Info) Description 02/15/2018 Telephone [place] [phone] Leonidas Valverde, RN Social History Tobacco Use Types Packs/Day Years [...] encounter Miscellaneous Notes * Telephone Encounter - Leonidas Valverde RN - 02/15/2018 9:00 AM EST Images from the original note were not included. Nishant Zapata MD [facility] Rheumatology Nurse ?? Please call. Tell her that her labs looked fine, but didn't offer any good explanation for the rash. How is she doing? We didn't discuss it in the clinic, but wearing compression stockings, particularly on her long work days may help prevent the swelling and worsening of the rash. Farias she tried that? ??Also, ask her to let me know if things worsen again and she is considering going back on prednisone. Thanks, CB Message left with call back number provided. documented in this encounter Plan of Treatment Not on file documented as of this encounter Visit Diagnoses Not on filedocumented in this encounter Care Teams Gas Technician Relationship Specialty Start Date End Date Jeniffer Angulo APRN [address] [place] [address] PCP - General Family Medicine 05/30/16 documented as of this encounter
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
--- OUTSIDE RECORDS SUMMARY | 2023-11-03 15:55 | XMS_ITS | Encounter Summary ---
Author Organization [facility] [place] [address] Care Team Providers Care Business Development Assistant Name Role Phone Jeniffer Angulo APRN Primary Care Provider [phone] Encounter Details Date Type Department Care Team (Late st Contact Info) Description 09/11/2016 Notes Only [place] [address] Isabella Curtis MD [facility] [place] [address] Social History Tobacco Use Types Packs/Day Years [...] Notes * Isabella Curtis MD - 09/11/2016 6:[address] Curtis, I spoke with Hasmukh on the phone today and the decision was made to cancel our last two visits. ??No further SOCIAL SERVICES DESIGNEE services are needed at this time. Thanks! Siva Plan: Agree with above. Isabella Curtis MD, PhD, MPH, FACOEM Consumer Loan Underwriter Section of Occupational and Environmental Medicine Department of Medicine [facility] of Medicine at [facility] documented in this encounter Plan of Treatment Not on file documented as of this encounter Visit Diagnoses Not on filedocumented in this encounter Care Teams Business Development Assistant Relationship Specialty Start Date End Date Jeniffer Angulo APRN [address] [place] [address] PCP - General Family Medicine 05/30/16 documented as of this encounter
--- OUTSIDE RECORDS SUMMARY | 2023-11-03 15:55 | XMS_ITS | Encounter Summary ---
[place] [address] Care Team Providers Care Product Support Specialist Name Role Phone Jeniffer Angulo APRN Primary Care Provider [phone] Encounter Details Date Type Department Care Team (Late st Contact Info) Description 07/23/2016 8:00 AM EDT Office Visit [place] [id number] Regina Levine, PASSENGER SERVICE SUPERVISOR Cognitive communication deficit Social History Tobacco Use [...] this encounter Progress Notes * Regina Levine, PASSENGER SERVICE SUPERVISOR - 07/23/2016 8:00 AM EDT Speech-Language Pathology Treatment session 07/23/2016 Total Treatment Time: 46 min. Total Timed Code Treatment: 46 min. KX Modifier used beginning date: Not applied S: Patient arrived on time for today's appointment. The room was quiet with limited distractions. O: Pt. seen for treatment of cognitive-linguistic skills. Goals: Pt. will take part in continued evaluation. -Provided patient education on the results of the evaluation performed 07/03/2016. Developed a treatment plan and discussed goals. Pt. will verbally state 3 internal memory strategies @ independent level. Patient will verbally state 3 external memory strategies @ independent level. Pt. will verbally state 3 strategies to use when experiencing word finding difficulty @ independentlevel. ? -Provided patient education on strategies to address word retrieval including the following: identify the first sound, gestures, visualization, and circumlocution (Describing object, where you would find it, how you would use it, etc) Patient demonstrated use of circumlocution and gestures in therapy today. Pt. will demonstrate sustained attention by maintaining [...] question of the other person. Patient will follow complex verbal directives with 90% accuracy @ independent level. ?? A: Provided patient education on strategies to facilitate recall when experiencing word finding difficulty in conversation. Patient expressed a general understanding. Additionally, discussed strategies to facilitate a more successful conversational exchange. Patient plans to implement use of these stra tegies over the next few weeks. Provided patient with several language based activities to completeas part of her home exercise program. Patient will return for a follow-up visit on 07/31/16. P: RECOMMENDATIONS: ?? Direct Speech Pathology intervention to treat the above stated deficits. ?? Frequency/Plan of Care: PASSENGER SERVICE SUPERVISOR services 1x/week for 3 months as patient's schedule allows. Patient/family expressed agreement with plan. Regina Levine MS, CCC-PASSENGER SERVICE SUPERVISOR Speech-Language Pathologist Rehabilitation Medicine Pager # [phone] documented in this encounter Plan of Treatment Not on file documented as of this encounter Visit Diagnoses Diagnosis Cognitive communication deficit documented in this encounter Care Teams Product Support Specialist Relationship Specialty Start Date End Date Jeniffer Angulo APRN [address] [place] [address] PCP - General Family Medicine 05/30/16 documented as of this encounter
--- OUTSIDE RECORDS SUMMARY | 2023-11-03 15:55 | XMS_ITS | Encounter Summary ---
Author Organization [facility] [place] [address] Care Team Providers Care Oil Sprayer Name Role Phone Jeniffer Angulo APRN Primary Care Provider [phone] Encounter Details Date Type Department Care Team (Late st Contact Info) Description 06/06/2016 Orders [place] [address] Isabella Curtis MD [facility] [place] [address] Social History Tobacco Use Types Packs/Day Years [...] Progress Notes * Isabella Curtis MD - 06/06/2016 11:26 PM EST Addendum: C7-T1 narrowing could explain C8 paresthesias. Will start with PT and see how she progresses. Isabella Curtis MD, PhD, MPH, FACOEM Technical Business Analyst Section of Occupational and Environmental Medicine Department of Medicine [facility] at [facility] documented in this encounter Plan of Treatment Not on file documented as of this encounter Visit Diagnoses Not on filedocumented in this encounter Care Teams Oil Sprayer Relationship Specialty Start Date End Date Jeniffer Angulo APRN [address] [place] [address] PCP - General Family Medicine 05/30/16 documented as of this encounter
--- OUTSIDE RECORDS SUMMARY | 2023-11-03 15:55 | XMS_ITS | Encounter Summary ---
[place] [address] Care Team Providers Care V Belt Skiver Name Role Phone Jeniffer Angulo APRN Primary Care Provider [phone] Encounter Details Date Type Department Care Team (Late st Contact Info) Description 07/04/2016 3:30 PM EDT Office [place] [address] Moe Weston, OT [facility] PHYSICAL MEDICINE & [place] [address] Post concussive syndrome Social History Tobacco Use [...] Progress Notes * Moe Weston, OT - 07/04/2016 3:30 PM EDT OCCUPATIONAL THERAPY TREATMENT NOTE REFERRAL SOURCE: Rosalia RAZA MD FOLLOW-UP: PRN TOTAL TREATMENT TIME: 60 Minutes TIMED CODE TREATMENT TIME: 60 minutes OCCUPATIONAL PROFILE: PAST MEDICAL HISTORY: 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 She describes bending below a shelf, standing up quickly, and hitting her head. She then went into the bathroom because she was vomiting and lost consciousness in the bathroom and hit her head again when she fell. She was seen at the [facility] ED, where a CT scan was negative, and she was diagnosed with a concussion. She followed up with her PCP in [place]. She developed significant behavior changes, including regression and anxiety. Her PCP sent her to the [facility] ED, where she spent the night and then was transferred to for an inpatient psychiatric admission from May 01, 2016, to May 08, 2016. See discharge summary for details. She has follow up with outpatient Psychiatry in [facility]. She is receiving medication and also has seen an blocker hand. She arrives today with her aunt. Her case worker arrived at the end of the visit. Pertinent History and/or Co-morbidities: Past Medical History: Diagnosis Date ??? Allergy ??? Circulatory disease TREATMENT TODAY: Initially completed [employer] circuit project one for which she was able to read directions, read portions of the manual to learn the rules, and then assemble the project independently. She was then instructed to completed project 5 and 6 and once built describe why they function differently. She completed project 5 with two errors which she initially identified and fixed.. She approached these more challenging assemblies with a plan taking out all the pieces first and then assembling. She then was given the task of preparing noodles on the stove top combined with completing snap circuit project 11 and project 18 and describing how they work. She was able to shift between noodles and snap circuit and organize her time effectively CLINICAL DECISION MAKING: Hasmukh Young presents with activity limitations and/or participation restrictions due to performance deficits in immediate recall, delayed memory, selective and shifting attention, which is in turn affecting all areas of executive function. She is making great gains at home doing more home management activity and is keeping track. She needs to be cautious of doing too much in a day consider if she does too many home tasks combined with multiple appointments she is foggy the next day. She was encouraged to consider use of her daily schedule for helping to keep energy demands consistent from day to day. She did well today with simple shifting attention activity andwas able to complete snap circuit in a planned organized fashion. Next visit we will challenge her problem solving more with a business planning activity requiring some level of reading. She had goodrehabilitation potential. Half-Way Goals (to be met by discharge): Date [...] documented in this encounter Care Teams V Belt Skiver Relationship Specialty Start Date End Date Jeniffer Angulo APRN [address] [place] [address] PCP - General Family Medicine 05/30/16 documented as of this encounter
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
--- OUTSIDE RECORDS SUMMARY | 2023-11-03 15:56 | XMS_ITS | Encounter Summary ---
Author Organization [facility] Address [address] [facility] [place] [address] Care Team Providers Care Linderman Machine Operator Name Role Phone Unavailable Primary Care Provider Unavailabl e Encounter Details Date Type Department Care Team (Latest Contact Info) Description 02/17/2011 10:12 AM EST - 02/17/2011 11:59 PM EST Hospital Encounter XRay at [address] [place] [id number] CLINIC, Jeff Galvez MD [address] [place], [place] [id number] Discharge Disposition: Home Social History Tobacco Use Types Packs/Day Years Used Date Smoking Tobacco: Never Assessed Sex and Gender Information Value Date Recorded Sex Assigned at Not on file Gender Identity Not on file Sexual Orientation Not on file documented as of this encounter Medications at Time of Discharge Medication Sig Dispensed Refills Start Date End Date nortriptyline (PAMELOR) 75 mg capsuleIndications:Head ache(784.0) Take 1 capsule by mouth nightly. Must be seen for F/U before more refills will be sent. If doing well, may obtain med from PCP instead. 30 capsule 2 01/13/2011 05/01/2016 documented as of this encounter Miscellaneous Notes * Miscellaneous - Provider, Scanning - 02/21/2011 8:35 AM EST documented in this encounter Plan of Treatment Not on file documented as of this encounter Procedures Procedure Name Priority Date/Time Associated Diagnosis Comments XR HIP INJECTION Routine 02/17/2011 11:0 8 AM EST documented in this encounter Results * XR HIP INJECTION (02/17/2011 11:08 AM EST) Anatomical Region Laterality Modality Hip N/A Radiographic Eugenie ging 02/17/2011 11:0 8 AM EST Impressions 02/18/2011 10:34 AM EST IMPRESSION: Successful right hip arthrogram without complication. ??Full report will follow completion of the patient's MRI study. Narrative 02/18/2011 10:34 AM EST RIGHT HIP ARTHROGRAM, 02/17/11: CLINICAL HISTORY: ??Pain with flexing. PROCEDURE: ??Following a discussion of relative risks and benefits with the patient and her mother, informed consent was obtained and signed. ??Skin overlying the anterior aspect of the right hip was sterilely prepared and infiltrated with 1% lidocaine. ??A #22-gauge spinal needle was advanced to the femoral head and the joint was distended with 10 cc of contrast. ?? The contrast consists of a mixture of 0.2 cc of Magnevist, 10 cc of normal saline, 5 cc of 1% lidocaine, and 5 cc of Omnipaque-300. ??5 cc of Omnipaque-300 was left in the vial and discarded. ?? Post injection images reveal no extravasation of contrast. ??The patient tolerated the procedure well. FLUOSORSCOPY TIME: ??19 seconds. Procedure Note Heron Serrano MD - 02/18/2011 RIGHT HIP ARTHROGRAM, 02/17/11: CLINICAL HISTORY: Pain with flexing. PROCEDURE: Following a discussion of relative risks and benefits with the patient and her mother, informed consent was obtained and signed. Skin overlying the anterior aspect of the right hip was sterilely prepared and infiltrated with 1% lidocaine. A #22-gauge spinal needle was advanced tothe femoral head and the joint was distended with 10 cc of contrast. The contrast consists of a mixture of 0.2 cc of Magnevist, 10 cc of normal saline, 5 cc of 1% lidocaine, and 5 cc of Omnipaque-300. 5 cc ofOmnipaque-300 was left in the vial and discarded. Post injection images reveal no extravasation of contrast. The patient tolerated the procedure well. FLUOSORSCOPY TIME: 19 seconds. IMPRESSION IMPRESSION: Successful right hip arthrogram without complication. Full report willfollow completion of the patient's MRI study. Jeff Garcia MD IMG DX ORDERABLES documented in this encounter Visit Diagnoses Not on filedocumented in this encounter
--- OUTSIDE RECORDS SUMMARY | 2023-11-03 15:56 | XMS_ITS | Clinical Summary ---
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 09/25/2023 Active ibuprofen (MOTRIN) 800 mg tablet Take 1 Tablet by mouth every 8 hours as needed for Pain. 09/25/2023 Active labetalol (NORMODYNE) 200 mg tablet Take 1 Tablet by mouth every 12 hours. 28 Tablet 2 09/25/2023 Active oxyCODONE (ROXICODONE) 5 mg immediate release tablet Take 1 Tablet by mouth every 4 hours as needed for Pain. Daily Max: 30 mg 8 Tablet 09/25/2023 Active polyethylene glycol 3350 (MIRALAX) 17 gram packet Take 17 g by mouth daily. 09/26/2023 Active Active Problems Problem Noted Date Diagnosed Date delivery delivered 09/23/2023 Postural dizziness with near syncope 09/09/2023 Hx of preeclampsia, prior , currently p regnant 09/07/2023 Preeclampsia, severe, third trimester 09/05/2023 Encounters Date Type Department Care Team Description 09/27/2023 Encounter [facility] Intensive Care Unit [address] [place] [id number] 09/22/2023 7:35 EDT - 09/22/2023 9:35 EDT Surgery [facility] Unit [address] [place] [address] [id number] Regina Thomson MD SECTION 09/22/2023 7:18 EDT Anesthesia Event [facility] Unit [address] [place] [address] [id number] Tomy Bustos DO Kostrubiak, Marc 09/21/2023 23:59 EDT Anesthesia Event [facility] ANESTHESIA [address] [place] [address] 14018 Carito Fields MD 09/04/2023 15:04 EDT - 09/25/2023 13:48 EDT Hospital Encounter [facility] M[facility] Unit [address] [place] [address] [id number] Shahana Choi MD Vasudeva, Isha, MD Meyer, Marjorie C, MD Preeclampsia, severe, third trimester [O14.13] (Primary Dx); Hx of preeclampsia, prior , currently [O09.299]; Postural dizziness with near syncope; Lactating mother; delivery delivered [O82] Discharge Disposition: Home or Self Care 09/04/2023 Travel 08/15/2023 Lab Requisition [facility] Pathology & Laboratory Medicine [address] [address] Outr Resulting Lab, Provider 08/15/2023 Lab Requisition [facility] Medicine [address] [address] Outr Resulting Lab, Provider 08/15/2023 Lab Requisition [facility] Pathology & Laboratory Medicine [address] [address] Outr Resulting Lab, Provider from Last 3 Months Immunizations Name Administration Dates Next Due Tdap Vaccine =>7YO IM 09/14/2023 Surgical History Surgery Date Site/Laterality Comments WRIST SURGERY Medical History Medical History Date Comments Wears glasses UTI (urinary tract infection) Broken wrist Depression Headache(784.0) Glaucoma possible suspect per patient Family History Medical History Relation Comments Migraines Father Cataract Maternal Grandfather Cataract Maternal Grandmother Dementia Maternal Grandmother Migraines Mother aura Relation Status Comments Father Maternal Grandfather Maternal Grandmother Mother Social History Tobacco Use Types Packs/Day Years Used Date Smoking Tobacco: Former Cigarettes Passive Smoke Exposure: Current Tobacco Cessation:Counseling Given: Not Answered Comments:1 PPD x 7 yrs Alcohol Use Standard Drinks/Week Comments Yes 0 (1 standard drink = 0.6 oz pur e alcohol) 1-2 4-5 d/wk [facility] Utilities Answer Date Recorded In the past 12 months has th e electric, gas, oil, or water company threatened to shut off services in your home? No 09/04/2023 Hunger Vital Sign Answer Date Recorded Within the past 12 months, y ou worried that your food would run out before you got the money to buy more. Never true 09/04/19 24 Within the past 12 months, t he food you bought just didn't last and you didn't have money to get more. Never true 09/04/2023 PRAPARE - Transportation Answer Date Re corded In the past 12 months, has l ack of transportation kept you from medical appointments or from getting medications? No 09/2023 In the past 12 months, has l ack of transportation kept you from meetings, work, or from getting things needed for daily living? No 09/04/2023 Housing Stability Vital Sign Answer Kwabena e Recorded In the last 12 months, was t here a time when you were not able to pay the mortgage or rent on time? No 09/04/2023 In the past 12 months, how m any times have you moved where you were living? 0 09/04/2023 At any time in the past 12 m [facility], were you homeless or living in a intermediate (including now)? No 09/04/2023 Interpersonal Safety Answer Date Record ed How often does anyone, naveen aly family, hit, punch or physically hurt you? 09/20/2023 How often does anyone, naveen aly family, insult, scream, curse or threaten to hurt you? 09/20/2023 Sex and Gender Information Value Date Recorded Sex Assigned at Not on file Gender Identity Not on file Sexual Orientation Not on file Obstetrics History Para Term AB IAB SAB Ectopic Multiple Livin g Live Births 5 3 0 3 2 0 3 3 Date Outcome GA Total Labor Labor/2nd/3rd Weight Sex Type Anes PTL Kathy A1 A5 Name Clin 35w 0d M Vag-S pont Livin g 36w 0d F Vag-S pont Livin g AB AB 2023 34w 1d M CS-LS T Livin g 2 7 BBDari Cisco Romano MD Delivery Location:[facility] ([place] [address] [facility]) Summary Episode Dates Number of Fetuses Estimated Date of Delivery 09/04/2023 - Present (11/03/2023) 1 11/02/2023 (set by Sharon Bird on 09/04/2023 based on Other Basis) Dating Summary Based On GEORGETTE GA Diff Other Basis 11/02/2023 Working Comment:7w US 15d difference from LMP Vitals Pregravid Weight Height TWG (As of 11/03/2023) Pregrav id BMI 172.7 cm (68) Date GA Fund Present FHR Mvmt BP Weight Edema Alb Glu Ket Dil/ Eff/Sta 4 34w1d Inpatient data not displayed here. See encounter summary. Notes Progress Notes - Hospital En counter - 09/25/2023 - GA:34w1d 09/25/2023 - 34w1d - Sandrine Falcon MSW Checked in with parents Hasmukh and Hong at bedside on 7 as they were preparing for discharge. Plan to return home to [place], [place] and visit NICU when able. No questions/needs before d/c. ZAC Moreira will follow during NICU admission, they already met with her this week. SWCM to remain available for psychosocial support, care coordination, and admission/discharge planning. Please reach out as needed. SONIA Hernandez [phone] ([employer] secure chat preferred) 09/25/2023 - 34w1d - Chasity Lee MD Postoperative Progress Note Chief Complaint: s/p emergency LTCS at 34w1d for breech presentation Subjective: Hasmukh Young is doing really well. She has good pain control at rest, mostly just uncomfortable moving around but is still ambulating when she can. Tolerating PO. Voiding spontaneously. Lochia is minimal now. She hasn't had a bowel movement yet, interested in enema today. Pumping going well, making milk for in NICU. Lives in [facility], hoping for d/c today. Interested in home PT to help rebuild strength from prolonged admission. Objective: BP 115/67 (BP Cuff Location: Left arm, BP Patient Position: Semi fowlers) Temp 36.1 ??C (97 ??F) (Temporal) Resp 16 Ht 172.7 cm (68) Wt (!) 107.5 kg (237 lb) SpO2 99% Unknown BMI 36.04 kg/m?? Gen: NAD Resp: Normal efforts CV: Regular rate Abd: Soft, appropriately tender, fundus check deferred, patient with abdominal binder in place and pumping, bandage clean and dry Ext: WW Labs: Lab Results Component Value Date/Time HCT 25.7 (L) 09/23/2023 14:37 HCT 34.1 (L) 09/19/2023 17:01 Assessment/Plan: Hasmukh Young is a 28 y.o. POD#3 s/p emergency LTCS at 34w1d for breech presentation after IOL for PEC w/ SF. Patient is recovering well, AVSS. Routine care: - Continue routine post-op/post- care. Continue current pain regimen. Encourage IS, ambulation, PO intake; support pumping. - Clemens d/c'd and voiding without difficulty - Pumping BM for baby in NICU - Rh + - Rubella imm, Varicella imm - Pre-op Hct 34.1, EBL 600. Post-op Hct 25. - Fleet enema ordered for today, continue bowel regimen with Miralax, colace, senna PEC w/ SF: - Diagnosed at 31w with sustained SRBP - On labetalol 200mg BID, however last several doses held for BP under parameters - Will send rx for home BP cuff with patient - Consider sending small rx for labetalol with patient but she likely doesn't need to be taking it given stable BP without medication over the last few days VTE Prophylaxis - Additional risk factors for VTE: Body mass index is 36.04 kg/m??., prolonged antepartum admission - Thromboprophylaxis: ambulation; hydration; SCDs; Dispo - Circumcision: does not desire and does not want to discuss - Contraception: planning vasectomy for partner - depression: discussed - Likely d/c home POD#3-4 Chasity Lee MD 09/25/23 6:59 Obstetrics & Gynecology, PGY-4 Pager #[phone] 09/24/2023 - 34w1d - DeaAntonio hamilton MD Postoperative Progress Note Chief Complaint: s/p emergency LTCS at 34w1d for breech presentation Subjective: Hasmukh Young reports she is doing well with good pain control. She is passing flatus but has not had a bowel movement yet. She is tolerating a regular diet without nausea or vomiting. She has been slowly ambulating and has been leaving the floor in a wheelchair to see her baby in NICU. Clemens was discontinued and is producing adequate urine and voiding without difficulty. Lochia is mild and decreasing. Pumping is going well. The patient denies CP/SOB/N/V/CAMPBELL/Dizziness/F/C/LE pain. Objective: BP 116/63 (BP Cuff Location: Left arm, BP Patient Position: Semi fowlers) Temp 36.5 ??C (97.7 ??F) (Temporal) Resp 18 Ht 172.7 cm (68) Wt (!) 107.5 kg (237 lb) SpO2 99% Unknown BMI 36.04 kg/m?? Gen: NAD Resp: CTAB CV: RRR, normal S1/S2 Abd: +BS, soft, appropriately tender, fundus firm @ 3 cm below umbilicus, incision bandage c/d/i Ext: WWP, 1+ PE bilat Labs: Lab Results Component Value Date/Time HCT 25.7 (L) 09/23/2023 14:37 HCT 34.1 (L) 09/19/2023 17:01 Assessment/Plan: Hasmukh Young is a 28 y.o. POD#2 s/p emergency LTCS at 34w1d for breech presentation. Patient is recovering well, AVSS and adequate UOP. Routine care: - Continue routine post-op/post- care. Continue current pain regimen. Encourage IS, ambulation, PO intake; support pumping. - Clemens d/c'd and voiding without difficulty and with adequate UOP - Pumping BM for baby in NICU - Rh + - Rubella imm, Varicella imm - Pre-op Hct 34.1, EBL 600. VTE Prophylaxis - Additional risk factors for VTE: Body mass index is 36.04 kg/m??. - Thromboprophylaxis: ambulation; hydration; SCDs; Dispo - Circumcision: does not desire and does not want to discuss - Contraception: will discuss - depression: will discuss - Likely d/c home POD#3-4 ROSALIA WAITE-BJ, MS4 09/24/23 7:01 Attending attestation statement: I saw and examined the patient with the student and independently verified all of the above information. I agree with the findings and plan of care documented in the note. Antonio Silvestre MD 09/23/2023 - 34w1d - Lillie Bonds, SUGAR [employer]E PLANTER CM/SW Note: I checked in with Hasmukh in her room on M7. I introduced myself and explained my role as NICU CM/SW. Hasmukh let me know that registration called her today- she completed the [place] Medicaid Application for baby and his insurance should be active within the next five days. Hasmukh confirmed that she has WIC and has an appointment scheduled for next Thursday. Hasmukh and SUE will return home when she discharges and will plan to visit several days a week. They live far away ([place], [place]) and have other children at home who are on summer break so she will need to split her time between caring for them and coming to the hospital to be with the baby. They have some family members that are available to help care for the other kids but not every day. I provided Hasmukh with a gas card and let her know that I can give her one a week to help with the cost of gas. Hasmukh did not have any other needs at this time. Lillie Bonds, SUGAR [employer]E PLANTER [phone] Pager: [phone] 09/23/2023 - 34w1d - Umm Martin RN 7:25 assumed pt care from Rachel. Pt asleep Magnesium gtt completed. 8:13 PRN pain relief and miralax Pt pumping. 10:53 clemens catheter removed; Pt oob to chair Breast pumping 12:33 oob to void Ambulating in mejia 14:08 PRN pain meds Pt pumping. 14:29 transfer B7. 09/23/2023 - 34w1d - Rachel Dewey RN 2300 Assumed care of pt s/p on mag, mag checks stable, partner at bedside. 0100 breast pumping 0400 breast pumping, mag check stable 09/22/2023 - 34w1d - Shahana Choi MD L&D Shift Progress Note CC: 28 y.o. admitted for PEC w/ SF dx at 31w4d who is now POD0 s/p emergency LTCS at 34w2d due to breech presentation Shift medical student: Sreedhar Rubio MS4 Shift provider: Regina Thomson MD Global - Pain: Currently controlled on Tylenol and Ibuprofen in the immediate post-op period - Global: Rh +, GBS pending, treated empirically due to hx of with severe GBS septicemia at 8 weeks. Active Problems: PEC w/ SF - based on sustained SR BPs at 31 wks - long acting: Labetalol 200 mg BID Hx of negative GBS status then resulting in an with late onset GBS septicemia (at 8 weeks pp) - GBS pending, received ampicillin, then penicillin, then ancef Assessment/Plan/Updates: 19:05: Pt resting in bed. Denies headaches, vision changes, RUQ pain, CP, SOB. Heart RRR, Lungs CTAB, DTRs 1+, no clonus. Adequate UOP 150cc/hr. No PEC symptoms, no s/sx Mg toxicity. Continue mag and mag checks. Kerwin Rubio MS4 1:06: Pt resting in bed. Denies headaches, vision changes, RUQ pain, CP, SOB. Heart RRR, Lungs CTAB, DTRs 1+, no clonus. Last UOP 300cc @2000. No PEC symptoms, no s/sx Mg toxicity. Continue mag and mag checks. Kerwin Rubio MS4 4:07: Pt resting in bed. Denies headaches, vision changes, RUQ pain, CP, SOB. Heart RRR, Lungs CTAB, DTRs 1+, no clonus. Adequate UOP 450cc/2hr. No PEC symptoms, no s/sx Mg toxicity. Continue mag and mag checks. Kerwin Rubio MS4 Sreedhar Rubio MS4 09/22/23 4:10 Attending Attestation: I was present with the medical student for the history, exam, and medical decision making documented by him/her. I have personally performed my own physical exam and medical decision making. I have verified and agree with (or, as indicated, have edited) the medical student? s documentation. Pt doing well, 24hr PP magSO4. Normotensive since delivery and still after MagSO4 dc. Shahana Choi MD 09/22/2023 - 34w1d - Tatiana reed, Kylah RN 0715- Assumed care P2 pt would was just found to be 6cm and breech. Rapid OR preparation underway. Husb at bedside. Dr Thomson in . T Cat 1. 2517- to OR 1500- pt has been recovering well after with general at 34+1. Baby in NICU. FOB with pt. Pt had extended period of being groggy. She is more alert now with pain 3/10. Bleeding WNL. 1600- planned to use breast pump but pt in pain after reposition. Will try again within hour. 1725- pt up to stand and then a couple of steps to recliner. Pt pumped and got 30ml colostrum which was brought to NICU. Pain was 3/10 with transfer. 1800- pt back in bed. Plan to sleep. Mag check stable.Husb at bedside 09/22/2023 - 34w1d - Regina Thomson MD Images from the original note were not included. L&D Shift Progress Note CC: 28 y.o. admitted for PEC w/ SF dx at 31w4d who is now POD0 s/p emergency LTCS at 34w2d due to breech presentation Shift resident: Ulises Eugene MD Shift provider: Regina Thomson MD Global - Pain: Currently controlled on Tylenol and Ibuprofen in the immediate post-op period - Global: Rh +, GBS pending, treated empirically due to hx of with severe GBS septicemia at 8 weeks. Active Problems: PEC w/ SF - based on sustained SR BPs at 31 wks - long acting: Labetalol 200 mg BID *Needs CBC within 6 hours of epidural placement Hx of negative GBS status then resulting in an with late onset GBS septicemia (at 8 weeks pp) - GBS pending, received ampicillin, then penicillin, then ancef Assessment/Plan/Updates: Labor course: 28 y.o. who presented to the hospital with PEC with SF at 31+4. Pt was induced at 34w1d in the context of her prior dx of preeclampsia with severe features. Bedside US was performed prior to the intitiation of her IOL, and fetus was cephalic. The patient's cervix was checked this AM when the pt felt that she was needing to push. She was found to be 7cm dilated on exam, with a footling breech fetus. This was verbalized to the patient- she had no neuraxial anesth and requested GETA. Given her exam and rapid cervical change, the decision was made to in fact use GETA for anesthesia. The c/s was started by both Drs. Thomson and En, with Dr. Choi then scrubbing Dr. Gatica out after repair of the uterus. See op report for further details. 1145: Post-op check: Doing well 4 hours post-operatively. Reports good pain control with Tylenol and Ibuprofen. Minimal nausea but no vomiting and tolerating PO. Voiding straw-colored urine via Clemens. Not yet ambulated. Hoping to ambulate soon to try to get to the NICU to see her baby. Denies CAMPBELL, vision changes, shortness of breath, CP, or lightheadedness. -Lungs CTAB, heart sounds normal, reflexes 1+. Plan for Mg check around 1300. Lissa Eugene 1330: Mg check shows no signs/sxs of mg toxicity. Patient denies CAMPBELL, vision changes, CP, SOB, RUQ pain. Heart sounds normal with RRR, lungs CTAB, reflexes 1+ bilaterally. Adequate urine output at 75mL/hr. Plan to recheck around 1500. Kerwin Rosado 1640 mg check. Feeling well overall, no headaches/visual changes, no cp/sob/ruq/epigastric pain. CTAB RRR, reflexes 1+, no clonus. UOP 900cc in 2hrs. MD Ulises Stringer MD 09/22/23 12:30 Emergency Medicine Resident, PGY1 09/22/2023 - 34w1d - Salinas Calderon MD Images from the original note were not included. L&D Shift Progress Note CC: 28 y.o. at 34w1d, admitted for PEC w/ SF dx at 31w4d Shift resident: Salinas Calderon MD Shift medical student: Sreedhar Rubio MS4 Shift provider: Arlen Velasquez MD Global - Pain: does not want epidural - EFW: 2169g @31+5 - PPH risk: medium Hct 34.1, plt 272 - Placenta location: anterior placenta - Global: Rh +, GBS pending - plan to treat empirically due to hx of infant with severe GBS septicemia at 8 weeks. Active Problems: PEC w/ SF - based on sustained SR BPs at 31 wks - long acting: Labetalol 200 mg BID *Needs CBC within 6 hours of epidural placement Hx of negative GBS status then resulting in an with late onset GBS septicemia (at 8 weeks pp) - GBS pending, on penicllin Assessment/Plan/Updates: Labor course to date: SVE at 1230 1/long/high, CRB placed and misoprostol given. Pitocin started at 1700. 22:47: CRB remains in place, overall doing well with ctx. Cat 1 FHT with 125 baseline, mod francis, pos accels, neg decels. 3-4ctx/10min. Pit at 12. Will plan to continue pitocin per protocol. Mag check: Maternal VSS, most recent BP 128/74 normotensive. Cat I FHT, 2- 3ctx/10 min. States her headache has resolved with tylenol. Denies CP, SOB, vision changes, RUQ pain. DTRs 2+ bilaterally, no clonus, making adequate UOP, 500/2hr. No PEC sx, no signs/sxs Mg toxicity at this time. Continue to monitor. Kerwin Rubio MS4 and Imelda Calderon MD 0005: CRB out with gentle traction. Cat 1 FHT. 4ctx/10min, pit at 16. Plan to continue to uptitrate pitocin. Will check SVE in next few hours, assess for AROM at that time. Imelda Calderon MD 1:13: Pt endorses nausea and dizziness beginning 5 minutes ago. States she feels her ctx less. Denies headaches, vision changes, RUQ pain, SOB. Most recent BP 117/96. Frostproof 2ctx/10min. Heart RRR, lungs CTAB. Cat II FHT recurrent late decels. Plan: Zofran for nausea. Check SVE in next few hours, assess for AROM at that time. Continue pitocin. Kerwin Rubio MS4 0145: SVE 3-4/50/-2, ballotable. Not feeling ctx much since CRB has come out. 4ctx/10min. FHT with periods of intermittent variability and recently with intermittent late decel. Plan for 250cc fluid bolus now, BP 109/60. Recheck SVE in 4h. 0245: Improved variability with position changes and fluid bolus. 4-5ctx/10min, pit at 18. 0500: Pt resting comfortably in bed. Denies headaches, vision changes, RUQ pain, SOB. Most recent BP 117/96. Frostproof 2ctx/10min. Heart RRR, lungs CTAB. UOP 150cc/3hr. BPs normotensive. Cat I FHT. No s/sx Mg toxicity at this time. Continue to monitor AAnny Rubio MS4 0540: SVE 5/60/-2, BBOW. Patient now feeling contractions very strongly all of a sudden, very shaky and more rectal/vaginal pressure. Likely patient has now kicked into labor, was before just mechanically dilated. Cat 1 FHT. Pit at 20. Plan to continue to uptitrate per protocol, recheck in around 4h, can assess for AROM at that time. MD Yumiko. 09/21/2023 - 34w0d - Giorgio Palencia RN 1924: Assumed care of patient from Oz Brown, RN, bedside report. Pt here for IOL for PEC w/ SF at 34w+0d, Rh +, GBS - on PCN for prophylactic d/t prior infection w/ son. Mg infusing at 50ml/hr, LR infusing at 25ml/hr, pitocin infusing at 5ml/hr. Pt has had unmediated births in the past, hoping to go unmediated again. Supportive partner Hong at bedside. Expecting baby boy. 2000: VSS. DTR's +2, no clonus, pt denies SOB, visual changes, RUQ/chest pain. Pt states she has a mild headache that is not new and is believed to be from lack of caffeine, coffee at bedside. 2030: Anesthesia at bedside for consult. 2199: Pt c/o CAMPBELL, tylenol given per MAY. Ron MCLAUGHLIN aware. 0005: CRB expelled w/ gentle traction. 0145: Yumiko MCLAUGHLIN at bedside, SVE 3-4/50-2. 0540: Pt reports intermittent pressure, Yumiko MCLAUGHLIN at bedside, SVE 5/60/-2. 0655: VSS. DTR's +2, no clonus, pt denies SOB, visual changes, RUQ/chest pain. Pt painfully annemarie, coping well. 0708: Pt reporting pressure, Berto MCLAUGHLIN at bedside, SVE . Berto requesting US to confirm presenting part. 0710: Berto MCLAUGHLIN, US at bedside, breech. Pit off. 0712: Terb given per Berto MCLAUGHLIN. 0718: Pt back in OR 2 for stat d/t breech. Report given to Kylah Gao RN. 09/21/2023 - 34w0d - Sandrine Falcon SUG[employer]E PLANTER Checked in with Hasmukh this morning, met partner Hong who was present at bedside. Hasmukh in good spirits, anxiously awaiting further discussion with MFM this morning regarding IOL planning. Was really hoping to have baby today but was told that she could go until 35w. No needs at this time, they have list of discounted hotels to utilize for NICU stay if needed. Will provide warm hand-off with NICU SW after delivery. SWCM to remain available for psychosocial support, care coordination, and admission/discharge planning. Please reach out as needed. Sandrine SONIA Falcon [phone] ([employer] secure chat preferred) 09/21/2023 - 34w0d - Rosalia Alcala L&D Shift Progress Note CC: 28 y.o. at 34w0d, admitted for PEC w/ SF dx at 31w4d Shift resident: Alisha Dennison MD, Chasity Lee MD Shift provider: Daniela Franco MD Global - Pain: does not want epidural - EFW: 2169g @31+5 - PPH risk: medium Hct 34.1, plt 272 - Placenta location: anterior placenta - Global: Rh +, GBS pending - plan to treat empirically due to hx of infant with severe GBS septicemia at 8 weeks. Active Problems: - PEC w/ SF based on sustained SR BPs at 31 wks, currently on Labetalol 200 mg BID *Would need CBC within 6 hours of epidural placement if she desires that - Hx of negative GBS status then resulting in an infant with late onset GBS septicemia (at 8 weeks pp) - plan to GBS swab for colonization status then treat empirically with PCN Assessment/Plan/Updates: 12:30: Cat 1 FHT, no contractions on toco. SVE 1/long/high. CRB placed 80:20, misoprostol placed. Confirmed cephalic by US. Plan to re-dose miso q3-4 hours pending contraction pattern. Mg bolus started for PEC w/ SF. 17:00: Cat 1 FHT, mild cramping but no contractions on toco. Denies CAMPBELL, CP, SOB, vision changes, RUQ pain. DTRs 2+ bilaterally, no clonus, making adequate UOP, 350/hr. No signs/sxs of Mg toxicity at this time. Continue to monitor. Pitocin started at this time. 09/21/2023 - 34w0d - Oz Paz RN 11:10 report rec'd from Shiva Gonsales RN. Transferred from to start IOL for PEC w/SF (diagnosed at 31+4). 34w today, GBS neg but planning to treat prophylactically as her son had late-onset disease previously. RH Pos. Endorses +FM, denies LOF/VB, occ. Ctx not painful. Denies CAMPBELL/visual changes/RUQ pain. 11:37 IV attempt x1 unsuccessful, blue slip placed 1152: vertex by BSUS 11:56 IV team at bedside now 1230: Miso and CRB placed by MD Lee 1237: Mag 4g bolus started 09/21/2023 - 34w0d - Shahana Choi MD NST Report [id number] Baseline Heart Rate: 145 Accelerations: present Movement: present Decelerations: absent Contractions: rare x 1. Not painful Interpretation: reactive Co-sign Provider (Physician Name): Dr. Jimbo SILVA, RN MFM Attending Addendum: I have reviewed the NST above- it is reactive. I agree with the assessment. Shahana Choi MD 09/21/2023 - 34w0d - Shahana Choi MD Antepartum Progress Note Chief Complaint: PEC w SF diagnosed at 31+4, now 34w0d Hospital Day: 17 Overnight Events: NAEON Subjective: Slept well overnight and is feeling well this morning. Is worried about her worsening BPs after a few weeks of not needing medications. Feeling like IOL today or tomorrow would be her preference. Denies CAMPBELL/vision changes CP, SOB, RUQ pain, edema. No ctx, LOF, VB. +FM. Objective: BP 97/61 (BP Cuff Location: Left arm, BP Patient Position: Semi fowlers) Temp 36.9 ??C (98.4 ??F) (Temporal) Resp 16 Ht 172.7 cm (68) Wt (!) 107 kg (235 lb 12.8 oz) SpO2 97% BMI 35.85 kg/m?? Patient Vitals for the past 24 hrs: BP Temp Temp src Resp SpO2 Weight 09/21/23 0420 97/61 36.9 ??C (98.4 ??F) Temporal 16 97 % -- 09/20/23 2340 138/85 37 ??C (98.6 ??F) Temporal 18 99 % -- 09/20/23 1930 (!) 132/91 36.8 ??C (98.2 ??F) Temporal 18 96 % -- 09/20/23 1615 140/82 36.1 ??C (97 ??F) Temporal 16 97 % -- 09/20/23 1204 128/80 36.9 ??C (98.4 ??F) Temporal 16 98 % -- 09/20/23 1039 -- -- -- -- 98 % -- 09/20/23 1034 -- -- -- -- 97 % -- 09/20/23 1029 -- -- -- -- 98 % -- 09/20/23 1024 -- -- -- -- 99 % -- 09/20/23 1019 -- -- -- -- 99 % -- 09/20/23 1014 -- -- -- -- 98 % -- 09/20/23 1009 -- -- -- -- 96 % -- 09/20/23 0841 -- -- -- -- -- (!) 107 kg (235 lb 12.8 oz) 09/20/23 0828 117/74 36 ??C (96.8 ??F) Temporal 18 100 % -- Gen: NAD Resp: no increased work of breathing Heart: RR Abdomen: gravid, soft, nontender Extremities: WWP Labs No new labs. Imaging: Growth completed 09/04,cephalic, anterior placenta, AC 94%ile, EFW 66%ile 2069g Assessment/Plan: 28 y.o. now at 34w0d admitted for PEC w/ SF diagnosed at 31+4, received procardia x1 and magnesium gtt during transport to [facility]. 24 hr urine protein 500mg on admission. Repeat PEC labs and electrolytes have been normal. Possibly some element of chronic hypertension given generally mild description of prior PEC (second delivery without medications, did not require magnesium). Previously on labetalol for BP control which was stopped 09/09 due to consistently normotensive pressures. On 09/17 started on labetalol 200mg BID due to MR Bps. Repeat pec labs stable. Plan for IOL today. Will CTM BP, wellbeing. 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 I have personally performed my own physical exam and medical decision making. I have verified and agree with (or, as indicated, have edited) the medical student? s documentation. I had a long discussion with Ms. Young re: IOL vs. Awaiting the 35th week in the context of her overall stability. However, labetalol was re-started on Thursday, 200mg BID. Given the change in her prior status, and her severe HTN on admission, she certainly meets criteria for a dx of preeclampsia with severe features- she would like to be induced today, and I agree that this is likely the best decision, as opposed to waiting any further to gain GA. Plan IOL today, Peds at delivery, will follow BPs closely. Discussed high likelihood of worsening HTN PP. I have encouraged Ms. Young to purchase or borrow a home BP cuff as well so that she can closely monitor her own BPs once she is home and PP. AGA fetus as of 2 weeks ago (AC 94% as above, but 1hr GTT normal). Pt tested to 6lb in 2019. Shahana Choi MD 09/21/2023 - 34w0d - Varsha Redmond MD .NST Report NST on [id number] from 2107 to 2140 Baseline Heart Rate: 140 Accelerations: present Movement: present Decelerations: a couple variables Contractions: rare Interpretation: reactive Varsha Redmond MD 09/21/2023 11:06 09/20/2023 - 33w6d - Julieta Del Rosario RN NST Report [id number] Baseline Heart Rate: 145 Accelerations: present Movement: present Decelerations: variable Contractions: x 2 not painful Interpretation: reactive Co-sign Provider (Physician Name): Dr. Michael SILVA, RN Associated attestation - Judith Rodriguez MD - 09/20/2023 1142 EDT I have reviewed the heart rate tracing and agree with NST interpretation as above. Judith Rodriguez MD 09/20/2023 11:42 09/20/2023 - 33w6d - Judith Rodriguez MD Antepartum Progress Note Chief Complaint: PEC w SF diagnosed at 31+4, now 33w6d Hospital Day: 16 Overnight Events: NAEON Subjective: Slept well. Was crying yesterday evening and confused about her course, plus some family emotional happenings. Feeling better today - no CAMPBELL/vision changes CP, SOB, RUQ pain, edema. No ctx, LOF, VB. +FM. Objective: BP 104/59 (BP Cuff Location: Left arm, BP Patient Position: Supine) Temp 36.6 ??C (97.9 ??F) (Temporal) Resp 18 Ht 172.7 cm (68) Wt (!) 108.1 kg (238 lb 6.4 oz) SpO2 98% BMI 36.25 kg/m?? Patient Vitals for the past 24 hrs: BP Temp Temp src Resp SpO2 Weight 09/20/23 0409 104/59 36.6 ??C (97.9 ??F) Temporal 18 98 % -- 09/19/23 2344 119/58 36.6 ??C (97.9 ??F) Temporal 16 100 % -- 09/19/23 2103 135/74 37 ??C (98.6 ??F) Temporal 16 97 % -- 09/19/23 1557 125/71 36.5 ??C (97.7 ??F) Temporal 16 98 % -- 09/19/23 1213 134/83 -- Temporal 18 97 % -- 09/19/23 1031 -- -- -- -- 100 % -- 09/19/23 1026 -- -- -- -- 100 % -- 09/19/23 1021 -- -- -- -- 99 % -- 09/19/23 1016 -- -- -- -- 100 % -- 09/19/23 1011 -- -- -- -- 100 % -- 09/19/23 1006 -- -- -- -- 100 % -- 09/19/23 1001 -- -- -- -- 99 % -- 09/19/23 0930 -- -- -- -- -- (!) 108.1 kg (238 lb 6.4 oz) 09/19/23 0840 135/90 36.6 ??C (97.9 ??F) Temporal 18 97 % -- Gen: NAD Resp: no increased work of breathing Heart: RR Abdomen: gravid, soft, nontender Extremities: WWP Labs No new labs. Imaging: Growth completed 09/04,cephalic, anterior placenta, AC 94%ile, EFW 66%ile 2069g Assessment/Plan: 28 y.o. now at 33w6d admitted for PEC w/ SF diagnosed at 31+4, received procardia x1 and magnesium gtt during transport to [facility]. 24 hr urine protein 500mg on admission. Repeat PEC labs and electrolytes have been normal. Possibly some element of chronic hypertension given generally mild description of prior PEC (second delivery without medications, did not require magnesium). Previously on labetalol for BP control which was stopped 09/09 due to consistently normotensive pressures. On 09/17 started on labetalol 200mg BID due to MR Bps. Repeat pec labs yesterday stable. Due to patient's stable BPs and no vasovagal episodes for a week, patient was offered the option of delivery at 35 weeks rather than the planned 34 week delivery, pt and partner currently leaning towards 34 week delivery. Will CTM BP, wellbeing. 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 I agree with the findings and plan of care documented in the resident's note. Judith Rodriguez MD 09/20/2023 10:26 09/20/2023 - 33w6zeinab - Varsha Redmond MD NST Report [id number] Baseline Heart Rate: 140 Accelerations: present Movement: present Decelerations: variable Contractions: absent Interpretation: reactive admissions consultant notified provider Omaira for prolonged accels. Remained on monitor for additional 20 min. Co-sign Provider (Physician Name): Dr. Varsha IRELAND RN M attending NST on [id number] from 2108 to 2153 I have reviewed the non-stress test tracing above and agree with the interpretation as baseline 140 and reactive. Varsha Redmond MD 09/21/2023 11:02 09/19/2023 - 33w5Julieta Stone RN NST Report [id number] Baseline Heart Rate: 140 Accelerations: present Movement: present Decelerations: present-variable Contractions: rare Interpretation: reactive Co-sign Provider (Physician Name): Dr. Suleman SILVA RN Associated attestation - Riya Shell MD - 09/19/2023 1820 EDT NST reviewed and agree with reports as below. Reactive NST, one variable deceleration noted. Riya Shell MD PGY5 Maternal Medicine Fellow [facility] 09/19/23 18:19 09/19/2023 - 33w5d - Cely Villar MD Antepartum Progress Note Chief Complaint: PEC w SF diagnosed at 31+4, now 33w5d Hospital Day: 15 Overnight Events: NAEON Subjective: Slept ok. Denies CAMPBELL, changes in vision, CP, SOB, RUQ pain, edema. Had some B-H, no regular ctx, LOF, VB. +FM. Discussed delivery timing with partner and prefers delivery at 34+0, willing to discuss with team more on Thursday. Objective: BP 102/63 (BP Cuff Location: Left arm, BP Patient Position: Semi fowlers) Temp 36.4 ??C (97.5 ??F) (Temporal) Resp 18 Ht 172.7 cm (68) Wt (!) 107.5 kg (237 lb) SpO2 99% BMI 36.04 kg/m?? Patient Vitals for the past 24 hrs: BP Temp Temp src Resp SpO2 Weight 09/19/23 0404 102/63 36.4 ??C (97.5 ??F) Temporal 18 99 % -- 09/18/23 2345 110/58 36.2 ??C (97.2 ??F) Temporal 16 98 % -- 09/18/23 1955 119/63 36.9 ??C (98.4 ??F) Temporal 16 98 % -- 09/18/23 1415 117/63 36.6 ??C (97.9 ??F) Temporal 18 99 % -- 09/18/23 1209 (!) 152/89 -- -- 18 97 % -- 09/18/23 1005 -- -- -- -- -- (!) 107.5 kg (237 lb) 09/18/23 0907 (!) 142/98 36.5 ??C (97.7 ??F) Temporal 18 100 % -- Gen: NAD Resp: no increased work of breathing Abdomen: gravid, soft, nontender Extremities: WWP Labs No new labs. Imaging: Growth completed 09/04,cephalic, anterior placenta, AC 94%ile, EFW 66%ile 2069g Assessment/Plan: 28 y.o. now at 33w5d admitted for PEC w/ SF diagnosed at 31+4, received procardia x1 and magnesium gtt during transport to [facility]. 24 hr urine protein 500mg on admission. Repeat PEC labs and electrolytes have been normal. Possibly some element of chronic hypertension given generally mild description of prior PEC (second delivery without medications, did not require magnesium). Previously on labetalol for BP control which was stopped 09/09 due to consistently normotensive pressures. On 09/17 started on labetalol 200mg BID due to MR Bps though had dose held last night. Due to patient's stable BPs and no vasovagal episodes for a week, patient was offered the option of delivery at 35 weeks rather than the planned 34 week delivery, pt and partner currently leaning towards 34 week delivery. Will CTM BP, wellbeing. 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 I agree with the findings and plan of care as documented in the resident's note. 28yo at 33w5d admitted at 31w4d for preeclampsia with severe features. Required discontinuation of antihypertensives for some time, however BP's tommie again on 09/17 and labetolol was restarted. Repeat preeclampsia labs sent today and normal. Will continue to discuss delivery planning, though likely to recommend IOL at 34w0d. BP's normal today. Riya Shell MD 09/19/2023 17:56 09/19/2023 - w5d - Varsha Redmond MD NST Report [id number] Baseline Heart Rate: 135 Accelerations: present Movement: present Decelerations: absent Contractions: absent Interpretation: reactive Co-sign Provider (Physician Name): Dr. Varsha IRELAND RN MFM attending NST on [id number] from 2004 to 2026 I have reviewed the non-stress test tracing above and agree with the interpretation as baseline 135 and reactive. Varsha Redmond MD 09/21/2023 10:59 09/18/2023 - w4d - Sandrine Falcon MSW Antepartum patient continues to remain admitted and stable. No social work/case management needs identified at this time. Will continue to follow progress and check-in with patient periodically. SW to remain available for psychosocial support, care coordination, and admission/discharge planning. Please reach out as needed. SONIA Hernandez [phone] ([employer] secure chat preferred) 09/18/2023 - w4d - Chu Portillo [facility] Spiritual Care Note Re: Hasmukh Landa Young : 1995, AGE: 28 y.o. ROOM: [place] [address] Spirituality: None BACKGROUND Routine visit. Patient was occupied at the time. INTERVENTIONS Presence CARE PLAN No further plan TIME STAMP: 5 minutes Thank you for the opportunity to provide for this patient's/family's spiritual needs. Philly Brown, [facility] [employer] [address] 09/18/2023 - 33w4d - Carolina Tamayo RD Nutrition Assessment Note: Initial Visit Reason for Visit: Length of stay BACKGROUND DATA Subjective: Patient reports that she has been eating well, food is getting a bit repetitive, only occasionally able to eat foods from cafeteria due to activity restrictions. No questions or concerns at this time. Current Nutrition Orders: Regular diet Physical Findings: Digestive Systems: no GI distress Dentition: per flowsheets Skin: intact Allergies on file: Codeine, Other - see comments, Phenergan [promethazine], Reglan [metoclopramide hcl], and Trimethobenzamide Anthropometrics: Height: 172.7 cm (68) Wt Readings from Last 6 Encounters: 09/17/23 (!) 106.7 kg (235 lb 3.2 oz) 09/26/11 66.2 kg (146 lb) (81%, Z= 0.86)* 08/12/11 61.2 kg (135 lb) (69%, Z= 0.49)* * Growth percentiles are based on CDC (Girls, 2-20 Years) data. Pertinent Medications: Current Facility-Administered Medications Medication Route Frequency acetaminophen (TYLENOL) tablet 1,000 mg oral Q8H PRN heparin injection 5,000 Units subcutaneous Q12H sodium chloride (OCEAN) 0.65 % nasal spray 1 [place] nasal - both Q2H PRN Pertinent Labs: Reviewed Estimated Nutrition Intake: 100% of one meal recorded on 09/15 ASSESSMENT: Patient screened in for nutrition assessment due to length of stay. She is eating well, good appetite though menu is getting repetitive. She has a cafe pass to help with menu fatigue though access to cafeterias is limited by activity restrictions and only able to go in a wheelchair with a staff member. No nutrition questions or concerns at this time. Nutrition Risk Level: Low (3) MEDICAL NUTRITION THERAPY PLAN: Continue Regular diet - Generally healthful, balanced diet - Has Cafe Pass, exp 10/08/23 Monitor: PO intake, wgt, skin, labs, BMs CAROLINA TAMAYO RD, CD (Call PAS or use [facility] ([email or web address]) to page RD covering this unit) 09/18/2023 - 33w4d - Varsha Redmond MD NST Report [id number] Baseline Heart Rate: Baseline 175 with baseline change to 150 ~ 0940 Accelerations: present Movement: present Decelerations: variable decels noted. ~0927 LOC noted during position change with RN at bedside, possible prolonged decel Contractions: none Interpretation: reactive Pt repositioned to left lateral at 0928 / LOC at this time Dr Jeremías Bird viewed NST in real time remotely. Dr. Zeinab Redmond on unit and at bedside at time of NST monitoring and viewed NST in real time. No action to be taken at this time. Co-sign Provider (Physician Name): Zeinab BAEZA RN M attending NST on [id number] from 904 to 1004 I have reviewed the non-stress test tracing above and agree with the interpretation as baseline 150 and reactive. Varsha Redmond MD 09/18/2023 10:44 09/18/2023 - 33w4d - Rosalia Alcala Antepartum Progress Note Chief Complaint: PEC w SF diagnosed at 31+4, now 33w4d Hospital Day: 14 Overnight Events: NAEON Subjective: Slept well. Had few ctxs on her NST last night but said she did not feel them. Has not had a vasovagal episode since 09/11. Currently denies CAMPBELL, changes in vision, CP, SOB, RUQ pain, edema. +FM, no LOF, VB. Objective: BP 122/68 (BP Cuff Location: Left arm, BP Patient Position: Semi fowlers) Temp 36.3 ??C (97.3 ??F) (Temporal) Resp 18 Ht 172.7 cm (68) Wt (!) 106.7 kg (235 lb 3.2 oz) SpO2 98% BMI 35.76 kg/m?? Patient Vitals for the past 24 hrs: BP Temp Temp src Resp SpO2 Weight 09/18/23 0415 122/68 36.3 ??C (97.3 ??F) Temporal 18 98 % -- 09/17/23 2358 112/64 36.2 ??C (97.2 ??F) Temporal 18 98 % -- 09/17/23 1918 123/78 36.6 ??C (97.9 ??F) Temporal 18 96 % -- 09/17/23 1834 (!) 143/87 36.5 ??C (97.7 ??F) Temporal 18 99 % -- 09/17/23 1354 132/80 36.5 ??C (97.7 ??F) Temporal 18 98 % -- 09/17/23 0800 133/90 36.8 ??C (98.2 ??F) Temporal 18 97 % -- 09/17/23 0715 -- -- -- -- -- (!) 106.7 kg (235 lb 3.2 oz) Gen: NAD CV: RR Resp: no increased work of breathing Abdomen: gravid, soft, nontender Extremities: WWP Labs No new labs. Imaging: Growth completed 09/04,cephalic, anterior placenta, AC 94%ile, EFW 66%ile 2069g Assessment/Plan: 28 y.o. now at 33w4d admitted for PEC w/ SF diagnosed at 31+4, received procardia x1 and magnesium gtt during transport to [facility]. 24 hr urine protein 500mg on admission. Repeat PEC labs and electrolytes have been normal. Possibly some element of chronic hypertension given generally mild description of prior PEC (second delivery without medications, did not require magnesium). Previously on labetalol for BP control which was stopped 09/09 due to consistently normotensive pressures. Due to patient's stable BPs and no vasovagal episodes for a week, patient was offered the option of delivery at 35 weeks rather than the planned 34 week delivery. Patient will discuss with partner and consider over the weekend. Will CTM BP, wellbeing. 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 I have personally performed my own physical exam and medical decision making. I have verified, edited and agree with the medical student? s documentation. When I saw her, she was awake. She said that she felt very tired the past couple of days but slept well. She is not having any symptoms of syncope or hypertension. She reports good movements and denies regular contractions, leaking fluid or bleeding. We discussed the fact that she carries the diagnosis of preeclampsia with SF but has barely had any high BPs off meds. She also has not had that syncope. After an MFM discussion, it seemed reasonable to let her go to 35 weeks', if she was willing, to get her a slightly more mature fetus. She knows she would still stay in the hospital. She will think about this and let us know after she discusses with her partner. Varsha Redmond MD 09/18/2023 9:35 09/18/2023 - 33w4d - Varsha Redmond MD NST Report [id number] Baseline Heart Rate: 145, then 140 Accelerations: present Movement: present Decelerations: x1 variable Contractions: x1 at 2113 for 60 sec, mild cramp Interpretation: reactive Co-sign Provider (Physician Name): Dr. Varsha IRELAND RN MFM attending NST on [id number] from 2056 to 2133 I have reviewed the non-stress test tracing above and agree with the interpretation as baseline 140 and reactive. Varsha Redmond MD 09/18/2023 9:33 09/17/2023 - 33w3d - Varsha Redmond MD NST Report Baseline Heart Rate: 145 Accelerations: present Movement: present Decelerations: present x1 Contractions: rare Interpretation: reactive Co-sign Provider (Physician Name): Dr. Zeinab BAEZA RN MFM attending NST on [id number] from 756 I have reviewed the non-stress test tracing above and agree with the interpretation as baseline 145 but I only see one clear acceleration so would not call this reactive.There is normal variability and one near acceleration just prior to the baseline being established at 145. It looked like 150 prior to that, and the acceleration didn't quite reach 165. This tracing is reassuring overall. Varsha Redmond MD 09/17/2023 9:22 09/17/2023 - w3d - Rosalia Alcala Antepartum Progress Note Chief Complaint: PEC w SF diagnosed at 31+4, now 33w3d Hospital Day: 13 Overnight Events: NAEON Subjective: Slept ok but was feeling intermittent contractions that were waking her up. Has not had a vasovagal episode since 09/11. Continues to have mild episodes of feeling on the verge of being dizzy with a slight CAMPBELL but they resolve with rest and without intervention. Currently denies CAMPBELL, changes in vision, CP, SOB, RUQ pain, edema. +FM, no LOF, VB. Objective: BP 110/74 (BP Cuff Location: Left arm, BP Patient Position: Semi fowlers) Temp 36 ??C (96.8 ??F) (Temporal) Resp 16 Ht 172.7 cm (68) Wt (!) 107.5 kg (237 lb) SpO2 100% BMI 36.04 kg/m?? Patient Vitals for the past 24 hrs: BP Temp Temp src Resp SpO2 Weight 09/17/23 0403 110/74 36 ??C (96.8 ??F) Temporal 16 100 % -- 09/17/23 0030 110/68 36 ??C (96.8 ??F) Temporal 18 98 % -- 09/16/23 1936 126/61 36.8 ??C (98.2 ??F) Temporal 20 98 % -- 09/16/23 1755 126/83 36.4 ??C (97.5 ??F) Temporal 18 97 % -- 09/16/23 1200 123/65 36.6 ??C (97.9 ??F) Temporal 18 97 % -- 09/16/23 1018 -- -- -- -- 98 % -- 09/16/23 1013 -- -- -- -- 95 % -- 09/16/23 1008 -- -- -- -- 98 % -- 09/16/23 1003 -- -- -- -- 97 % -- 09/16/23 0958 -- -- -- -- 95 % -- 09/16/23 0953 -- -- -- -- 98 % -- 09/16/23 0948 -- -- -- -- 97 % -- 09/16/23 0943 -- -- -- -- 98 % -- 09/16/23 0938 -- -- -- -- 98 % -- 09/16/23 0933 -- -- -- -- 98 % -- 09/16/23 0928 -- -- -- -- 97 % -- 09/16/23 0923 -- -- -- -- 97 % -- 09/16/23 0918 -- -- -- -- 99 % -- 09/16/23 0913 -- -- -- -- 97 % -- 09/16/23 0908 -- -- -- -- 99 % -- 09/16/23 0725 121/80 36.1 ??C (97 ??F) Temporal 18 98 % (!) 107.5 kg (237 lb) 09/16/23 0722 -- -- -- -- 98 % -- 09/16/23 0721 -- -- -- -- 98 % -- Gen: NAD CV: RR Resp: no increased work of breathing Abdomen: gravid, soft, nontender Extremities: WWP Labs No new labs. Imaging: Growth completed 09/04,cephalic, anterior placenta, AC 94%ile, EFW 66%ile 2069g Assessment/Plan: 28 y.o. now at 33w3d admitted for PEC w/ SF diagnosed at 31+4, received procardia x1 and magnesium gtt during transport to [facility]. 24 hr urine protein 500mg on admission. Repeat PEC labs and electrolytes have been normal. Possibly some element of chronic hypertension given generally mild description of prior PEC (second delivery without medications, did not require magnesium). Previously on labetalol for BP control which was stopped 09/09 due to consistently normotensive pressures. Due to patient's large variations in BP and intermittent vasovagal episodes, plan to remain inpatient for the remainder of with plan to deliver at 34 weeks. Will CTM BP, wellbeing. 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 I have personally performed my own physical exam and medical decision making. I have verified, edited and agree with the medical student? s documentation. In addition, her morning NST was reassuring but not reactive. We will repeat tonight. Varsha Redmond MD 09/17/2023 9:27 09/17/2023 - w3d - Varsha Redmond MD NST Report [id number] Baseline Heart Rate: 140 Accelerations: present Movement: present-very active/interruption in monitor tracing due to movement Decelerations: present variable rare Contractions: irregular: 2 uterine contractions palpated (mild) Interpretation: reactive Co-sign Provider MD AUBRIE Tubbs RN MFM attending NST on [id number] from 1924 to 2009 I have reviewed the non-stress test tracing above and agree with the interpretation as baseline 140 and reactive. Varsha Redmond MD 09/17/2023 9:30 09/16/2023 - w2d - Varsha Redmond MD NST Report Pt. On nst 907- 1021 33+2 weeks preeclampsia with severe features Baseline Heart Rate: 145 Accelerations: present Movement: present Decelerations: present 1 variable decel with low of 94 increase to baseline in 4 minutes. Pt. Turned to left side. Dr andres reviewed strip said leave pt. On monitor until 1019. Pt. Had a few other mild variables with quick return to baseline Contractions: rare . One ctx felt lasting 50 seconds, mild. Mom has slight cramping on and off. Interpretation: reactive Co-sign Provider (Physician Name):dr cecilio VARGAS RN MFM attending NST on [id number] from 907 to 1021 I have reviewed the non-stress test tracing above and agree with the interpretation as reactive but I would have called baseline 140. Varsha Redmond MD 09/16/2023 13:10 09/16/2023 - 33w2d Rosalia Donnelly Antepartum Progress Note Chief Complaint: PEC w SF diagnosed at 31+4, now 33w2d Hospital Day: 12 Overnight Events: BHUPINDER Subjective: Slept well overnight, feeling well this morning. Has not had a vasovagal episode since 09/11. Had a slight CAMPBELL yesterday with her MR BP that went away with Tylenol and rest. Patient endorses cramping feeling that was picked up on the NST yesterday as irregular mild contractions. Denies CAMPBELL, changes in vision, CP, SOB, RUQ pain, edema. +FM, no LOF, VB. Objective: BP 129/68 (BP Cuff Location: Left arm, BP Patient Position: Supine) Temp 35.7 ??C (96.3 ??F) (Temporal) Resp 19 Ht 172.7 cm (68) Wt (!) 108 kg (238 lb 3.2 oz) SpO2 100% BMI 36.22 kg/m?? Patient Vitals for the past 24 hrs: BP Temp Temp src Resp SpO2 Weight 09/16/23 0530 129/68 35.7 ??C (96.3 ??F) Temporal 19 100 % -- 09/16/23 0124 107/57 36.5 ??C (97.7 ??F) Temporal 18 97 % -- 09/15/23 2136 (!) 140/91 36.4 ??C (97.5 ??F) Temporal 18 97 % -- 09/15/23 1800 127/75 36.3 ??C (97.3 ??F) Temporal 18 98 % -- 09/15/23 1431 -- -- -- -- 98 % -- 09/15/23 1430 129/70 36.4 ??C (97.5 ??F) Temporal 18 98 % -- 09/15/23 1429 -- -- -- -- 99 % -- 09/15/23 1222 129/75 36.5 ??C (97.7 ??F) Skin 16 98 % -- 09/15/23 1221 -- -- -- -- 99 % -- 09/15/23 1220 -- -- -- -- 98 % -- 09/15/23 0923 -- -- -- -- 95 % -- 09/15/23 0918 -- -- -- -- 97 % -- 09/15/23 0913 -- -- -- -- 97 % -- 09/15/23 0908 -- -- -- -- 95 % -- 09/15/23 0903 -- -- -- -- 100 % -- 09/15/23 0858 -- -- -- -- 100 % -- 09/15/23 0853 -- -- -- -- 98 % -- 09/15/23 0848 -- -- -- -- 99 % -- 09/15/23 0846 -- -- -- -- 95 % -- 09/15/23 0835 129/76 -- -- -- -- -- 09/15/23 0822 -- -- -- -- 98 % -- 09/15/23 0821 (!) 151/69 36.3 ??C (97.3 ??F) Temporal 18 99 % -- 09/15/23 0820 -- -- -- -- 98 % -- 09/15/23 0723 -- -- -- -- -- (!) 108 kg (238 lb 3.2 oz) Gen: NAD CV: RR Resp: no increased work of breathing Abdomen: gravid, soft, nontender Extremities: WWP Labs No new labs. Imaging: Growth completed 09/04,cephalic, anterior placenta, AC 94%ile, EFW 66%ile 2069g Assessment/Plan: 28 y.o. now at 33w2d admitted for PEC w/ SF diagnosed at 31+4, received procardia x1 and magnesium gtt during transport to [facility]. 24 hr urine protein 500mg on admission. Repeat PEC labs and electrolytes have been normal. Possibly some element of chronic hypertension given generally mild description of prior PEC (second delivery without medications, did not require magnesium). Previously on labetalol for BP control which was stopped 09/09 due to consistently normotensive pressures. Due to patient's large variations in BP and intermittent vasovagal episodes, plan to remain inpatient for the remainder of with plan to deliver at 34 weeks. Will CTM BP, wellbeing. 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 I have personally performed my own physical exam and medical decision making. I have verified, edited and agree with the medical student? s documentation. Ms Young is doing well, and I told her I was okay with her going down to cafeteria. Induction at 34 weeks'. Varsha Redmond MD 09/16/2023 10:54 09/16/2023 - 33wlanie - Varsha Redmond MD NST Report Baseline Heart Rate: 150 Accelerations: present Movement: present Decelerations: present Contractions: Irregular Interpretation: reactive [id number] Co-sign Provider (Physician Name): RALF SANON RN M attending NST on [id number] from 2138 to 2305 I have reviewed the non-stress test tracing above and agree with the interpretation as baseline 150 and reactive. Varsha Redmond MD 09/16/2023 10:49 09/15/2023 - 33Varsha Hernández MD NST Report on nst [id number] pt. Sitting slightly reclined, pillow under hip Baseline Heart Rate: 145 Accelerations: present Movement: present Decelerations: one variable with quick return to baseline Contractions: absent Interpretation: reactive Co-sign Provider (Physician Name):varsha VARGAS, RN MFM attending NST on [id number] from 844 to 921 I have reviewed the non-stress test tracing above and agree with the interpretation as reactive, although I would have called baseline 140. Varsha Redmond MD 09/16/2023 10:51 09/15/2023 - 33w1d - Rosalia Alcala Antepartum Progress Note Chief Complaint: PEC w SF diagnosed at 31+4, now 33w1d Hospital Day: 11 Overnight Events: NAEON Subjective: Slept well overnight, feeling well this morning. Has not had a vasovagal episode since 09/11. Denies CAMPBELL, changes in vision, CP, SOB, RUQ pain, edema. +FM, no LOF, VB, ctx. Objective: BP 111/62 (BP Cuff Location: Left arm, BP Patient Position: Supine) Temp 36.3 ??C (97.3 ??F) (Temporal) Resp 18 Ht 172.7 cm (68) Wt (!) 108 kg (238 lb 3.2 oz) SpO2 98% BMI 36.22 kg/m?? Patient Vitals for the past 24 hrs: BP Temp Temp src Resp SpO2 Weight 09/15/23 0723 -- -- -- -- -- (!) 108 kg (238 lb 3.2 oz) 09/15/23 0354 111/62 36.3 ??C (97.3 ??F) Temporal 18 98 % -- 09/15/23 0000 106/60 36.5 ??C (97.7 ??F) Temporal 16 99 % -- 09/14/23 2116 (!) 143/85 36.3 ??C (97.3 ??F) Temporal 18 98 % -- 09/14/23 1705 (!) 147/71 36.9 ??C (98.4 ??F) Temporal 18 98 % -- 09/14/23 1152 127/62 -- -- -- 98 % -- 09/14/23 1151 -- -- -- -- 99 % -- 09/14/23 1150 -- -- -- -- 98 % -- 09/14/23 1149 -- -- -- -- 98 % -- 09/14/23 1148 127/62 36.4 ??C (97.5 ??F) Temporal 18 97 % -- 09/14/23 1041 -- -- -- -- 98 % -- 09/14/23 1036 -- -- -- -- 98 % -- 09/14/23 1031 -- -- -- -- 97 % -- 09/14/23 1001 -- -- -- -- 98 % -- 09/14/23 0956 -- -- -- -- 98 % -- 09/14/23 0951 -- -- -- -- 99 % -- 09/14/23 0929 -- -- -- -- 97 % -- 09/14/23 0928 140/84 -- -- -- 98 % -- 09/14/23 0927 -- -- -- -- 97 % -- 09/14/23 0926 140/84 36.7 ??C (98.1 ??F) Temporal 18 -- -- Gen: NAD CV: RR Resp: no increased work of breathing Abdomen: gravid, soft, nontender Extremities: WWP Labs Recent Labs 09/12/23 1518 WBC 9.42 RBC 4.32 HGB 12.4 HCT 37.1 PLT 323 MCV 86 MCH 28.7 MCHC 33.4 Recent Labs 09/12/23 1518 CREATININE 0.48* Recent Labs 09/12/23 1518 AST 16 ALT 18 Imaging: Growth completed 09/04,cephalic, anterior placenta, AC 94%ile, EFW 66%ile 2069g Assessment/Plan: 28 y.o. now at 33w1d admitted for PEC w/ SF diagnosed at 31+4, received procardia x1 and magnesium gtt during transport to [facility]. 24 hr urine protein 500mg on admission. Repeat PEC labs and electrolytes have been normal. Possibly some element of chronic hypertension given generally mild description of prior PEC (second delivery without medications, did not require magnesium). Previously on labetalol for BP control which was stopped 09/09 due to consistently normotensive pressures. Due to patient's large variations in BP and intermittent vasovagal episodes, plan to remain inpatient for the remainder of with plan to deliver at 34 weeks. Patient understands and agrees with this plan. Will CTM BP, wellbeing. 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 I have personally performed my own physical exam and medical decision making. I have verified, edited and agree with the medical student? s documentation. We will watch and see if we can get her to 34 weeks' and then deliver. Varsha Redmond MD 09/15/2023 12:30 09/14/2023 - 33w0zeinab - Xochitl Amaya RN NST Report pt. Sitting on nst [id number] Baseline Heart Rate: one part 140 ,one part 145 to 150 Accelerations: present Movement: present Decelerations: possible occasional variable with quick return to baseline Contractions: absent Interpretation: reactive Co-sign Provider (Physician Name):brandon VARGAS RN 09/14/2023 - 33w0zeinab - BigSandrine portillo MSW Patient attended IUP support group in [facility] this morning from [phone]. Shared openly with peers and engaged in mutual support to help with coping during hospital admission for high-risk . Sandrine FalconSONIA [phone] (Ratify chat preferred) 09/14/2023 - 33w0d - Odilia Franks MD MFMS Attending I saw and examined the patient. I agree with impression and plan as noted above. I spent 20-29 minutes of total time today on the encounter. Pt feeling well, sitting in hair Holter taken off yesterday, pending Dsic that most likely etiology for near syncope is combination of labile bp and deconditioning Disc concern that DC would just have more symptoms-she is not a good candidate for outpt rx given the number of events she has had Disc she meets criteria for preeclampsia with SF and disc should rx as such. Given the number of bp-related events feel reasonable to consider proceed with delivery 34 wks Encouraged ambulation,, sitting, and sitting then standing a few minutes next to chair and then sitting again and repeat-this may help train her orthostatic reflex Pt is comfortable with this plan In addition to providing routine care, I spent a total of 20-29 minutes on the date of this encounter actively managing one or more chronic medical conditions pre-dating the , including dose adjustment of at least one prescription medication, as described above. This time statement reflects only the proportion of my total time spent meeting with the patient, reviewing documentation and coordinating care that is directly attributable to the pre- condition(s). Odilia Franks MD 09/14/2023 - 33w0d - Sandrine Falcon MSW Checked in with Hasmukh on [place] [address]. Had eventful few days last week with episodes likely related to BP she says. Has now lost her off unit privileges but was really hoping to come to IUP support group this morning. Since it is just in the [facility] (right outside unit doorway), RN approved for her to attend as this program writer can call for help if needed. Hasmukh states plan for IOL has been confirmed for 34w (next Thursday). Is asking about a NICU re-consult. Okay if this is just with her since her partner has all 4 kids this week and has been needing to miss work. Likely planning to commute during NICU stay due to circumstances at home, but may stay in local hotel for a couple of days or RMD closer to NICU d/c. Plan to reassess. SW sent message to NICU resident to request re-consult. SWCM to remain available for psychosocial support, care coordination, and admission/discharge planning. Please reach out as needed. SONIA Hernandez [phone] (Ratify chat preferred) 09/14/2023 - 33w0zeinab - Yasmin Sesay MD NST Report [id number] Baseline Heart Rate: 140 Accelerations: present Movement: present Decelerations: absent Contractions: absent Interpretation: reactive Co-sign Provider (Physician Name): YASMIN OWUSU MD, RN I reviewed the NST and agree. Yasmin Owusu MD 09/13/2023 - 32w6d - Dasia Piper RN NST Report Baseline Heart Rate: 145 Accelerations: present Movement: present Decelerations: variables Contractions: none Interpretation: reactive; initially difficult tracing with active baby and changing baseline; baseline settled at 145; moderate variability Co-sign Provider (Physician Name): Judith Rodriguez Nst [phone] DASIA PIPER RN Associated attestation - Judith Rodriguez MD - 09/13/2023 1320 EDT I have reviewed the heart rate tracing and agree with NST interpretation as above. Judith Rodriguez MD 09/13/2023 13:20 09/13/2023 - 32w6d - Rosalia Alcala Antepartum Progress Note Chief Complaint: PEC w SF diagnosed at 31+4, now 33w0d Hospital Day: 9 Overnight Events: NAEON Subjective: Slept well overnight, feeling well this morning. Had one other dizzy episode on Thursday but had an uneventful Thursday. Denies CAMPBELL, changes in vision, CP, SOB, RUQ pain, edema. +FM, no LOF, VB, ctx. Objective: BP 93/44 Temp 36.5 ??C (97.7 ??F) (Temporal) Resp 17 Ht 172.7 cm (68) Wt (!) 106.1 kg (234 lb) SpO2 99% BMI 35.58 kg/m?? Patient Vitals for the past 24 hrs: BP Temp Temp src Resp SpO2 Weight 09/14/23 0405 102/62 35.6 ??C (96.1 ??F) Temporal 17 98 % -- 09/13/23 2254 132/79 36.3 ??C (97.3 ??F) Temporal 17 99 % -- 09/13/23 1625 135/89 36.5 ??C (97.7 ??F) Temporal 18 98 % -- 09/13/23 1408 (!) 143/78 36.5 ??C (97.7 ??F) Temporal 18 98 % -- 09/13/23 0826 124/73 36.3 ??C (97.3 ??F) Temporal 18 99 % (!) 105.4 kg (232 lb 6.4 oz) Gen: NAD CV: RR Resp: no increased work of breathing Abdomen: gravid, soft, nontender Extremities: WWP Labs Recent Labs 09/12/23 1518 WBC 9.42 RBC 4.32 HGB 12.4 HCT 37.1 PLT 323 MCV 86 MCH 28.7 MCHC 33.4 Recent Labs 09/12/23 1518 CREATININE 0.48* Recent Labs 09/12/23 1518 AST 16 ALT 18 Imaging: Growth completed 09/04,cephalic, anterior placenta, AC 94%ile, EFW 66%ile 2069g Assessment/Plan: 28 y.o. now at 32w6d admitted for PEC w/ SF diagnosed at 31+4, received procardia x1 and magnesium gtt during transport to [facility]. 24 hr urine protein 500mg on admission. Repeat PEC labs and electrolytes have been normal. Possibly some element of chronic hypertension given generally mild description of prior PEC (second delivery without medications, did not require magnesium). Previously on labetalol for BP control which was stopped 09/09 due to consistently normotensive pressures. Due to patient's large variations in BP and intermittent vasovagal episodes, plan to remain inpatient for the remainder of with plan to deliver at 34 weeks. Patient understands and agrees with this plan. Will CTM BP, wellbeing. 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 Yasmin Owusu MD 09/12/2023 - 32w5d - Chasity Lee MD OB Update: Non-sustained SRBP with sudden onset RUQ pain and intense right sided headache. Given patient's discomfort, brought to L&D. Repeat labs wnl as below. Headache improved with PO tylenol. RUQ pain resolved, patient has history of gallstones and had pizza for lunch which she suspects triggered pain. Planning to remain low-fat for rest of . BP normotensive on L&D. Cat 1 FHT. Back to B7. Chasity Lee MD 09/12/23 19:45 Obstetrics & Gynecology, PGY-3 Pager #[phone] 09/12/2023 - 32w5d - Ita Molina RN 1445: assumed care of pt. Transfer from mother baby, bs report from Bettye FREEMAN. 1455: pt endorses +FM, denies ctx, vb, LoF. CAMPBELL 8/10 pain. (See Mar) To send repeat PEC labs. (See results) 1632: pts pain 3/10, labs stable. ok to transfer back to B7. 09/12/2023 - 32w5d - Bettye Monroe RN 1215: Pt was on right side. Moved to semi fowlers for her VS. Began to feel lightheaded and hot. Stated, I'm really hot, I need the fan. Pulse up to 106. BP 129/81. 1218: Feeling better. Pulse down to 80. Able to open her eyes. Not dizzy but says she now has a bit of a headache. 1220: Pulse 78-80. Feeling better. 1420: BP 170/90-100's. Dr. Lee notified. C/O right upper quadrant pain, CAMPBELL, nausea. 1425: Dr. Lee at bedside. P 120. 1426: BP 132/105 1430: Plan to transfer to L&D for further monitoring. 1440: Transferred to L&D. Report given to Ita FREEMAN. 1718: Back from L&D. Report received from Ita FREEMAN. 09/12/2023 - 32w5d - Bettye Monroe RN NST Report Baseline Heart Rate: 140 Accelerations: present Movement: present Decelerations: absent Contractions: absent Interpretation: reactive Co-sign Provider (Physician Name): Dr. Salazar [phone] BETTYE MONROE RN Associated attestation - Esther Salazar MD - 09/12/2023 1225 EDT NST reactive Esther Salazar 09/12/2023 - 32w5d - Chasity Lee MD Antepartum Progress Note Chief Complaint: PEC w SF diagnosed at 31+4, now 32w5d Hospital Day: 8 Overnight Events: - NAOE Subjective: Doing okay, feeling exhausted. Would like to sleep more. Denies CAMPBELL, changes in vision, CP, SOB, RUQ pain, edema. +FM, no LOF, VB, ctx. Objective: BP 110/74 (BP Cuff Location: Left arm, BP Patient Position: Supine) Temp 36.6 ??C (97.8 ??F) (Oral) Resp 16 Ht 172.7 cm (68) Wt (!) 106.1 kg (234 lb) SpO2 98% BMI 35.58 kg/m?? Gen: NAD CV: RR Resp: no increased work of breathing Abdomen: gravid, soft, nontender Extremities: not assessed Labs Recent Labs 09/10/23 0729 WBC 9.58 RBC 4.21 HGB 12.3 HCT 35.5 PLT 342 MCV 84 MCH 29.2 MCHC 34.6 Recent Labs 09/10/23 0729 NA 133* K 4.3 CL 105 CO2 19* CREATININE 0.39* CALCIUM 9.0 MG 1.6* Recent Labs 09/10/23 0729 AST 16 ALT 16 Imaging: Growth completed 09/04,cephalic, anterior placenta, AC 94%ile, EFW 66%ile 2069g Assessment/Plan: 28 y.o. now at 32w5d admitted for PEC w/ SF diagnosed at 31+4, received procardia x1 and magnesium gtt during transport to [facility]. 24 hr urine protein 500mg on admission. Repeat PEC labs and electrolytes have been normal. Possibly some element of chronic hypertension given generally mild description of prior PEC (second delivery without medications, did not require magnesium). Previously on labetalol for BP control which was stopped 09/09 due to consistently normotensive pressures. Patient may be a candidate for outpatient management if stable through the weekend. Also may be a candidate for 35w delivery if BP stable. Will CTM BP, wellbeing. 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 I agree with the findings and plan of care as documented in the resident's/fellow's note. DS is admitted for likely PEC w/ SF and is doing well. Denies headache, visual changes, RUQ pain and denies concerns.Her blood pressures overnight are within normal limits. She is not on any anti-hypertensive medications In addition her labs aside from her 24 hr urine protein is within normal limits. Patient additionally has had pre-syncopal events and has undergone a work up with no pertinent findings. She has a Holter monitor in place. It was previously discussed with the patient during the week that she may be able to be discharged early next week and plan for a delivery closer to 35 weeks. Discussed with her that will be dependent on her bps through the remainder of the weekend. Agree with the previous provider that she is stable and this may be a component of chronic hypertension though hard to tell based on limited ability to verify blood pressures. Patient had several questions about location of care as she lives close to [facility]. Discussed that if the Thursday provider states reasonable to go home that there will likely be a plan for MFM f/u in clinic ante natally. Discussed that it is difficult to promise that [facility] providers would be comfortable to take care of her with blood pressure issues at an early gestational age but that is something that she could inquire about. Reiterated that if discharged and something should happen at home- she should seek care at the closest facility to her and that it would be incumbent on her providers to triage where she should get care appropriately in that acute setting. Esther Salazar MD 09/12/2023 12:26 09/12/2023 - 32w5Kelsi Polanco RN NST Report Baseline Heart Rate: 140 Accelerations: present Movement: present Decelerations: absent Contractions: absent Interpretation: reactive Co-sign Provider (Physician Name):Dr. Golden GAONA RN 09/11/2023 - 32w4d Rosalia Donnelly OB UPDATE NOTE Patient was sitting and watching TV when she started feeling dizzy, lightheaded, flushed, and nauseous. She called for her nurse who entered the room to see the patient sitting in her chair with her eyes closed looking pale, unwell, and was dry heaving. Her initial BP was 139/73 with a pulse of 113. On a 15 minute repeat BP was 137/88 and HR was 92. Patient's blood glucose was 101. She endorsed CAMPBELL and was given Tylenol. She denied CP or SOB. She also endorsed blurring of her peripheral vision during the episode with slow improvement with rest. This is her third consecutive day experiencing these episodes of dizziness with nausea that seem to occur suddenly and with no known trigger. All of her previous labs have been wnl including CBC and CMP. Differential still includes likely vasovagal episodes. Will continue to monitor. Discussed with MFM attending Dr. Choi. Holter monitor was placed at 15:15 and will be left in place for 24 hours. ROSALIA GALVEZ, MS4 09/11/23 16:07 09/11/2023 - 32w4d - Shahana Choi MD Antepartum Progress Note Chief Complaint: PEC w SF diagnosed at 31+4, now 32w4d Hospital Day: 7 Overnight Events: - NAOE Subjective: Feeling well this morning. Got to visit with her family yesterday evening which was nice. She is not leaving the unit in light of her two previous pre- syncopal episodes. Patient denies CAMPBELL, vision changes, SOB, Chest pain, RUQ pain, acute LE edema. . -VB, -LOF, -CTX. +FM. Objective: BP 95/56 (BP Cuff Location: Left arm, BP Patient Position: Semi fowlers) Temp 36.4 ??C (97.5 ??F) (Temporal) Resp 20 Ht 172.7 cm (68) Wt (!) 105.9 kg (233 lb 6.4 oz) SpO2 99% BMI 35.49 kg/m?? Gen: NAD CV: RR Resp: no increased work of breathing Abdomen: gravid, soft, nontender Extremities: trace LE edema Labs Recent Labs 09/10/23 0729 WBC 9.58 RBC 4.21 HGB 12.3 HCT 35.5 PLT 342 MCV 84 MCH 29.2 MCHC 34.6 Recent Labs 09/10/23 0729 NA 133* K 4.3 CL 105 CO2 19* CREATININE 0.39* CALCIUM 9.0 MG 1.6* Recent Labs 09/10/23 0729 AST 16 ALT 16 Imaging: Growth completed 09/04,cephalic, anterior placenta, AC 94%ile, EFW 66%ile 2069g Assessment/Plan: 28 y.o. now at 32w4d admitted for PEC w/ SF diagnosed at 31+4, received procardia x1 and magnesium gtt during transport to [facility]. 24 hr urine protein 500mg on admission. Repeat PEC labs and electrolytes have been normal. Possibly some element of chronic hypertension given generally mild description of prior PEC (second delivery without medications, did not require magnesium). Previously on labetalol for BP control which was stopped 09/09 due to consistently normotensive pressures that continued overnight. Patient may be a candidate for outpatient management if stable through the weekend. Also may be a candidate for 35w delivery if BP stable. Will CTM BP, wellbeing. 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 I have personally performed my own physical exam and medical decision making. I have verified and agree with (or, as indicated, have edited) the medical student? s documentation. Was doing well this AM, however has had another episode of feeling tunnel vision this afternoon while seated in her room- she was not outside or overheated this time. Did not have any N/V, though noted some increased vaginal d/c when up to the toilet. No SOB, CP. At this point will get a Holter Monitor in place to ensure no cardiac etiology behind these episodes. status remains reassuirng,a nd Ms. Young now not requiring antihypertensives. Shahana Choi MD 09/11/2023 - 32w4d - Tracee Coburn RN NST Report [id number] Baseline Heart Rate: 145 - change to 135 at 2137 Accelerations: present Movement: present Decelerations: present - variable Contractions: absent Interpretation: reactive Co-sign Provider (Physician Name): Patient is 32 and 3 weeks gestation with hx of PEC w/ SF. MD Harmon reviewed strip due to decelerations. Patient monitored for 60 minutes. Overall moderate variability, reactive with good movement. TRACEE COBURN RN 09/10/2023 - 32wFavian Rainey RN NST Report Baseline Heart Rate: 135 Accelerations: present Movement: present Decelerations: absent Contractions: irritability Interpretation: reactive Co-sign Provider (Physician Name):Hoang Franks MD [id number] Pt went off unit and called because she started to feel SOB. This program writer found her sitting in her wheel chair in the [facility] hallway. Pt had just started feeling dizzy, which became worse as we got closer to the unit. Pt assisted in her bed. notified VS taken and placed on monitor. FAVIAN ANDRADE RN 09/10/2023 - 32w3d Favian Rios RN NST Report Baseline Heart Rate: 150 Accelerations: present Movement: present Decelerations: absent Contractions: irritability Interpretation: reactive Co-sign Provider (Physician Name):Hoang Franks MD NST ran from [id number] FAVIAN ANDRADE RN 09/10/2023 - 32w3d Rosalia Donnelly Antepartum Progress Note Chief Complaint: PEC w SF diagnosed at 31+4, now 32w3d Hospital Day: 6 Overnight Events: - NAOE Subjective: Feeling well just tired this morning. Patient has slight CAMPBELL, which is normal for her, denies Vision changes, SOB, Chest pain, RUQ pain, acute LE edema. . -VB, -LOF, -CTX. +FM. Objective: BP 123/67 Temp 36.6 ??C (97.9 ??F) (Temporal) Resp 16 Ht 172.7 cm (68) Wt (!) 106.7 kg (235 lb 3.2 oz) SpO2 98% BMI 35.76 kg/m?? Gen: NAD CV: RR Resp: no increased work of breathing Abdomen: gravid, soft, nontender Extremities: trace LE edema Labs Recent Labs 09/07/23 0912 09/10/23 0729 WBC 8.16 9.58 RBC 3.90 4.21 HGB 11.3* 12.3 HCT 32.9* 35.5 PLT 273 342 MCV 84 84 MCH 29.0 29.2 MCHC 34.3 34.6 Recent Labs 09/07/23 0912 09/10/23 0729 NA -- 133* K -- 4.3 CL -- 105 CO2 -- 19* CREATININE 0.39* 0.39* CALCIUM -- 9.0 MG -- 1.6* Recent Labs 09/07/23 0912 09/10/23 0729 AST 18 16 ALT 22 16 Imaging: Growth completed 09/04,cephalic, anterior placenta, AC 94%ile, EFW 66%ile 2069g Assessment/Plan: 28 y.o. @ 32w3d with PEC w/ SF diagnosed at 31+4, received procardia x1 and magnesium gtt during transport to [facility]. BP under good control with minimal labetalol, now stopping due to consistently normotensive pressures. 24 hr urine protein 500mg on admission. Repeat PEC labs today with lytes d/t vasovagal episode yesterday. Possibly some element of chronic hypertension given generally mild description of prior PEC (second delivery without medications, did not require magnesium). Patient may be a candidate for outpatient management if stable through the weekend. Also may be a candidate for 35w delivery if BP stable. Will CTM BP, wellbeing. 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 I agree with impression and plan as noted above. I spent 20-29 minutes of total time today on the encounter. Pt feeling better today, GFm, no bleeding, contrax Held labetalol due to near syncope yesterday and was normotensive-just now increasing Minimal CAMPBELL, no other vision changes Abd-soft, NT Disc most likely vagal-type episode but held labetalol but given bp int he past likely to restart but will start at low dose 100 mg BID Disc will still keep inpt to Thursday since expect will need bp control but can still consider DC Thursday if stable with close fu Pt without questions re: plan Will increase activity today but will stay on B7 for now In addition to providing routine care, I spent a total of 20-29 minutes on the date of this encounter actively managing one or more chronic medical conditions pre-dating the , including dose adjustment of at least one prescription medication, as described above. This time statement reflects only the proportion of my total time spent meeting with the patient, reviewing documentation and coordinating care that is directly attributable to the pre- condition(s). Odilia Franks MD 09/10/2023 - 32w3d - Tracee Coburn RN NST Report Baseline Heart Rate: 145 Accelerations: present Movement: present Decelerations: present - variable x1 Contractions: absent Interpretation: reactive Co-sign Provider (Physician Name): MD. Franks Patient is 32 and 2 weeks gestation being monitored for PEC w/ SF. MD Harmon notified of variable deceleration. Overall reactive strip with moderate variability. TRACEE COBURN RN 09/09/2023 - 32w2d Favian Rios RN NST Report Baseline Heart Rate: 145 Accelerations: present Movement: present Decelerations: present Contractions: irritability Interpretation: not reactive Co-sign Provider (Physician Name):Hoang Franks MD NST ran from [id number]. Variables noted, with accelerations. Not reactive, but reassuring. Dr. Andres notified after 40 min. FAVIAN ANDRADE RN 09/09/2023 - 32Sharon Mc OB Update Note Patient left the floor to walk around the hospital. She went to the bathroom and felt dizzy. When she tried to stand up from the toilet she felt dizzy and nauseous and quickly sat back down on the toilet and called for help. She needed assistance getting off the toilet and on to the floor where she rested in the position and vomited some mucus. She did not hit her head or her abdomen and did not lose consciousness. She was able to stand with assistance and was transferred to a bed and brought to L&D for monitoring. BP on admittance was 145/51, HR 69. NST is reactive with FHR 145-150. She denies pain and LOF. Labs were ordered (electrolytes, Ca, Mag, Cr) and she and baby will continue to be monitored on L&D for 1-2 hours. Leading diagnosis vasovagal episode. Will continue hold parameters for 200mg labetalol. Discussed with MFM attending Dr. Golden WAITE-BJ, MS4 09/09/23 12:18 I was present with the medical student for the history, exam, and medical decision making documented by the student. I have edited the student note as appropriate. Sharon Bird MD 09/09/2023 - 32w2d - Umm Martin, RN 12:01 Pt to L&D after OB emergency Michael Gilliam and Marge @ bedside Cefrm and toco in place BP 146/51; HR 98 13:22 pt oob to void in bathroom No dizziness or lightheadness while up. 13:53 oob to void; Tolerating PO fluids. Pt states she is feeling better 14:06 plan for transfer to 09/09/2023 - 32w2d - Sharon Day Antepartum Progress Note Chief Complaint: PEC w SF diagnosed at 31+4 Hospital Day: 5 Overnight Events: - NAOE Subjective: Feeling well this morning. Again had some episodes of lightheadedness/dizziness yesterday after walking. Thinks this might be related to her headaches - both this and dizziness resolved with Tylenol. Otherwise feeling well. Patient denies Vision changes, CAMPBELL, SOB, Chest pain, RUQ pain, acute LE edema. . -VB, -LOF, -CTX. +FM. Objective: BP 111/61 (BP Cuff Location: Left arm, BP Patient Position: Semi fowlers) Temp 36.3 ??C (97.3 ??F) (Temporal) Resp 20 Ht 172.7 cm (68) Wt (!) 106.7 kg (235 lb 3.2 oz) SpO2 98% BMI 35.76 kg/m?? Gen: NAD CV: RR Resp: no increased work of breathing Abdomen: gravid, nontender Extremities: trace LE edema Labs Recent Labs 09/07/23911 WBC 8.16 RBC 3.90 HGB 11.3* HCT 32.9* PLT 273 MCV 84 MCH 29.0 MCHC 34.3 Recent Labs 09/07/23911 CREATININE 0.39* Recent Labs 09/07/2312 AST 18 ALT 22 Imaging: Growth completed 09/04,cephalic, anterior placenta, AC 94%ile, EFW 66%ile 2069g Assessment/Plan: 28 y.o. @ 32w2d with PEC w SF diagnosed at 31+4, received procardia x1 and magnesium gtt during transport to [facility]. BP under good control with minimal labetalol - 100mg to 200mg BID dosing. 24 hr urine protein 500mg. Repeat PEC labs wnl. Possibly some element of chronic hypertension given generally mild description of prior PEC (second delivery without medications, did not require magnesium). Patient may be a candidate for outpatient management if stable for the next 1-2 weeks. Also may be a candidate for 35w delivery if BP stable. Will CTM BP, wellbeing. 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 I agree with impression and plan as noted above. I spent 20-29 minutes of total time today on the encounter. Pt in chair, feeling well GFM Good bp control without escalation Disc a possible plan for DC Thursday- if stable: APV, BPP, NST on [facility] and on Mondays NST and bp [place] [facility] [place] If managed as outpt will assess optimal delivery timing in that context, no later than 37 wks Disc readmit if opoor control of bp at home Disc [facility] RNs every day if desired with home bps Would CHUY MFM and plan delivery here-prior had significant hosptial stay 912 days) for bp control at [facility]. Low threshold for eadmit/delivery 34 wks Pt will let FOB know, as he will need reassurance Of note, about an hour after our discussion, pt was walking in hosptial, felt dizzy, nauseated, Emertgency called, to L&D-there bp stable, P 100; FHR reactive. No LOC, no persistent ACMPBELL. Feeling better after about 15 min, feels ready to tolerate po fluids. No residual CAMPBELL. Overall impression at this time is vagal episode now resolved but will monitor closely and reduce labetalol if needed Will monitor in L&D 1-2 hrs In addition to providing routine care, I spent a total of 50 minutes on the date of this encounter actively managing one or more chronic medical conditions pre-dating the , including dose adjustment of at least one prescription medication, as described above. This time statement reflects only the proportion of my total time spent meeting with the patient, reviewing documentation and coordinating care that is directly attributable to the pre- condition(s). Odilia Franks MD 09/09/2023 - 32w2d - Tracee Coburn RN NST Report [id number] Baseline Heart Rate: 135 Accelerations: present Movement: present Decelerations: present (variable x2) Contractions: absent Interpretation: reactive Co-sign Provider (Physician Name): MD Harmon patient at 32 and 1 weeks gestation admitted for PEC w/ SF. MD Harmon notified of variable decelerations and reviewed strip - gave permission for patient to come off. TRACEE COBURN RN Associated attestation - Odilia Franks MD - 09/09/2023 1313 EDT I reviewed NST and agree with above Reactive Variables with reactive NST Odilia Franks MD 09/08/2023 - 32w1d [facility] Baseline Heart Rate: 140 Accelerations: present Movement: present Decelerations: present Contractions: irritability Interpretation: reactive [id number] Co-sign Provider (Physician Name): MD NEREYDA Franks RN Associated attestation - Odilia Franks MD - 09/09/2023 1306 EDT I reviewed NST and agree with above Reactive Odilia Franks MD 09/08/2023 - 32w1d - Sandrine Falcon MSW Checked in with Hasmukh this morning. She is still here she says. Provided list of discounted hotels and pointed out which hotels [facility] works with most frequently. Discussed [facility] not typically able to accommodate 50/50 stays for families given their waiting lists and need for re-referrals. Discussed could utilize them for a week if wants to stay close at first, or could utilize them for a few days around discharge timing if wants to be close towards the end of baby's stay. Hasmukh worried about expense of gas with commuting back and forth - SW explained travel support program, can provide some gas cards to alleviate burden during NICU stay. Also discussed new undelivered meet-up/support group starting next Thursday morning on the unit in the family lounge. Will provide flyer for more info. Questions about parking validation - SW to add sticky note for staff to validate partner's parking. Will also f/u on cafe pass this morning. SWCM to remain available for psychosocial support, care coordination, and admission/discharge planning. Please reach out as needed. SONIA Hernandez [phone] ([employer] secure chat preferred) 09/08/2023 - w1d Sharon Pruitt Antepartum Progress Note Chief Complaint: PEC w SF diagnosed at 31+4 Hospital Day: 4 Overnight Events: - NAOE Subjective: Feeling well this morning. Had some episodes of lightheadedness/dizziness yesterday, resolved with lying down/sitting. These happened while walking around with her mother. Patient denies Vision changes, CAMPBELL, SOB, Chest pain, RUQ pain, acute LE edema. . -VB, -LOF, -CTX. +FM. Objective: BP 113/68 (BP Cuff Location: Left arm, BP Patient Position: Semi fowlers) Temp 36 ??C (96.8 ??F) (Temporal) Resp 16 Ht 172.7 cm (68) Wt (!) 106.4 kg (234 lb 9.6 oz) SpO2 97% BMI 35.67 kg/m?? Gen: NAD Resp: no increased work of breathing Abdomen: gravid, nontender Extremities: trace LE edema Labs Recent Labs 09/07/23 09 WBC 8.16 RBC 3.90 HGB 11.3* HCT 32.9* PLT 273 MCV 84 MCH 29.0 MCHC 34.3 Recent Labs 09/07/23 09 CREATININE 0.39* Recent Labs 09/07/23 0912 AST 18 ALT 22 Imaging: Growth completed 09/04,cephalic, anterior placenta, AC 94%ile, EFW 66%ile 2069g Assessment/Plan: 28 y.o. @ 32w1d with PEC w SF diagnosed at 31+4, received procardia x1 and magnesium gtt during transport to [facility]. Low normotensive yesterday with BPS 110s/70s on labetalol 200mg BID. Finished 24 hour urine yesterday. Repeat PEC labs yesterday wnl . May need to down titrate labetalol to 100mg Bid given dizziness and relative hypotension. 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 I agree with impression and plan as noted above. I spent 20-29 minutes of total time today on the encounter. Pt feeling well EFW AGA yesterday monitoring reassuring HTN worsens with walking-disc better to walk and we will titrate meds for bp than remain sedentary Disc overall plan-she delivered with preeclampsia first preg, second preg had increased 24 hr protein and was close to 37 wks and delivered without meds- disc that her bp control is excellent and while she did have severe HTN prior to transfer, her control here has been excellent on small dose of meds Disc that there may be consideration of delay of delivery past 34 wks if her bp remains stable Disc possible outpt management-she lives near [facility] and wants to be close to here -it is too soon to consider but if remains very stable for another 1-2 wks will reconsider plan In addition to providing routine care, I spent a total of 20-29 minutes on the date of this encounter actively managing one or more chronic medical conditions pre-dating the , including dose adjustment of at least one prescription medication, as described above. This time statement reflects only the proportion of my total time spent meeting with the patient, reviewing documentation and coordinating care that is directly attributable to the pre- condition(s). Odilia Franks MD 09/08/2023 - 32w1d - Alea Young RN NST Report Baseline Heart Rate: 135 Accelerations: present Movement: present Decelerations: absent Contractions: absent Interpretation: reactive NST from [id number], MD harmon notified to review strip, cold juice given to promote reactivity. Per ok to come off monitor. Co-sign Provider (Physician Name): MD ALEA Franks, LYDIA Associated attestation - Odilia Franks MD - 09/09/2023 1312 EDT I reviewed NST and agree with above Reactive Odilia Franks MD 09/07/2023 - 32w0d - [facility] Antepartum Admission Case Management/Social Work Assessment Reason for admission: PEC w SF diagnosed at 31+4, currently on HD #3. Planning for 34w IOL unless BP/symptoms worsen. Chief Complaint Patient presents with Pre-Eclampsia Patient/family understands reason for admission: Yes - understands reason for admission and plan of care as stated above. Questions about length of stay ; said she had a 12 day admission due to BP issues after the of her 5yo. Discussed 24hr magnesium on L&D and then 24-48hr PP stay on B7 as standard but complications may extend. Patient/family contact information verified: Yes - Hasmukh ([phone]) and FOB/partner Hong ([phone]). Emergency contacts are Hong primarily [patient concerned this is not updated in chart, SW to ensure contacts are updated and Hong's info goes into sticky notes] & mother Akiko ([phone]). Patient address verified: Yes - [address] [place] [address]. Living arrangement: Hasmukh and Hong live in a home in [place], [place]. They have a blended family; Hasmukh has a 6yo and 5yo that live with them full-time and Hong has a 15yo and 11yo who live with them 50% of the time, one week on and one week off. This is their first baby together! Social Determinants of Health (SDOH): SDOH Screening Social Determinants of Health Food Insecurity: No Food Insecurity (09/04/2023) Hunger Vital Sign Worried About Running Out of Food in the Last Year: Never true Ran Out of Food in the Last Year: Never true Housing Stability: Low Risk (09/04/2023) Housing Stability Vital Sign Unable to Pay for Housing in the Last Year: No Number of Times Moved in the Last Year: 0 Homeless in the Last Year: No Financial Resource Strain: Not on file Transportation Needs: No Transportation Needs (09/04/2023) PRAPARE - Transportation Lack of Transportation (Medical): No Lack of Transportation (Non-Medical): No Interpersonal Safety: Low Risk (09/04/2023) Interpersonal Safety Physically Hurt : Not on file Verbally Threaten: Not on file Utilities: Not At Risk (09/04/2023) [facility] Utilities Threatened with loss of utilities: No Depression: Not on file Depression: Not on file Alcohol Use: Not on file Tobacco Use: Medium Risk (09/04/2023) Patient History Smoking Tobacco Use: Former Smokeless Tobacco Use: Unknown Passive Exposure: Current Stress: Not on file Physical Activity: Not on file Social Connections: Not on file SDOH Follow-Up: Endorsed no SDOH concerns on admission screening. Family is enrolled in Medicaid, WIC, and SNAP for assistance. Access to transportation. Questions about lodging for NICU stay. Would be able to ask for family help to pay for some hotel room nights. Also interested in [facility] but would only stay here for part of the week, SW will look into [facility] requirements for staying in the house - communicated to patient that she would likely need to stay at [facility] for the majority of the nights during the week. Patient understanding of these options and limitations. Also asked about boarder rooms and explained the eligibility for accessing these. Will bring list of discounted hotels to bedside. Transportation plan: Yes Lodging needs: Yes INSURANCE COVERAGE: Insurance: [place] Medicaid [facility] Registration Financial Advocates referral: No FAMILY RESOURCES/SUPPORTS: Patient's Primary Care Provider: Jeniffer Angulo [place]'s Engineering Illustrator (if applicable): Not assessed during this visit. Specialists: Chiropractor. Verified: Yes Community Programs: WIC. SNAP. Medicaid. Employment/Childcare: MOB is a SAHM. FOB recently promoted at [employer], they are flexible with his time off if he needs to get here urgently. Social Supports: Endorse good support from family network as well as community. [place] very small town so they know lots of neighbors/residents. Mental Health History/Needs: Declines hx of mood concerns or current concerns re:coping with hospitalization. SW will continue to monitor. CULTURAL, GNOSTICISM and/or LANGUAGE factors affecting health care/discharge planning: Language/Literacy needs: Stateless speaking. Spiritual/Cultural requests: None. ADMISSION/DISCHARGE PLANNING: Preferred Pharmacy: No Pharmacies Listed Home Health: Not discussed during this visit. Choice Form Signed: No Family? s identified goals/needs: SWCM will continue to follow patient's progress and remain available for coordination of care, psychosocial support and/or discharge planning. Provided business card for any immediate needs, will plan to visit every 2-3 days during admission. Will f/u with [facility] and provide list of local lodging options as well. No other questions at this time. Other hospital services offered/indicated: None at this time. Referrals Made by SW: None at this time. PLAN FOR ADMISSION & POST-HOSPITAL TRANSITION PLAN: I met with the family, introduced myself and the role of SWCM. Assessed for needs and discussed plans for admission & discharge. Sandrine Ezekiel SUGAR CANE PLANTER [phone] ([employer] secure chat preferred) 09/07/2023 - 32w0d - Julieta Del Rosario RN NST Report [id number] Baseline Heart Rate: 145 Accelerations: present Movement: present Decelerations: absent Contractions: absent Interpretation: reactive Co-sign Provider (Physician Name): Dr. Golden SILVA RN Associated attestation - Odilia Franks MD - 09/09/2023 1312 EDT I reviewed NST and agree with above Reactive Odilia Franks MD 09/07/2023 - 32w0d - Sharon Day Antepartum Progress Note Chief Complaint: PEC w SF diagnosed at 31+4 Hospital Day: 3 Overnight Events: - NAOE Subjective: Feeling well and was able to get sleep overnight. Patient denies Vision changes, SOB, Chest pain, RUQ pain, acute LE edema. Had a mild headache yesterday which resolved. -VB, -LOF, -CTX. +FM. Objective: BP 100/54 (BP Cuff Location: Left arm, BP Patient Position: Semi fowlers) Temp 36.3 ??C (97.3 ??F) (Axillary) Resp 16 Ht 172.7 cm (68) Wt (!) 106.1 kg (234 lb) SpO2 96% BMI 35.58 kg/m?? Gen: NAD Resp: no increased work of breathing Abdomen: gravid, nontender Extremities: trace LE edema Labs Recent Labs 09/04/23 1647 WBC 11.89 RBC 4.69 HGB 13.6 HCT 39.9 PLT 396* MCV 85 MCH 29.0 MCHC 34.1 Recent Labs 09/04/23 1648 CREATININE 0.39* Recent Labs 09/04/23 1806 AST 21 ALT 22 Imaging: Growth completed 09/04, AGA, final report pending Assessment/Plan: 28 y.o. @ 32w0d with PEC w SF diagnosed at 31+4, received procardia x1 and magnesium gtt during transport to [facility]. Stable and majority normotensive after arrival and initiating labetalol 200mg, magnesium discontinued. PEC labs wnl, 24hr urine protein 500. X1 mild range overnight, otherwise normotensive. Repeat PEC labs this am. 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 I agree with impression and plan as noted above. I spent 20-29 minutes of total time today on the encounter. Pt feeling well no symptoms of preeclampsia GFM Bp well controlled with labetalol On UFH BID Disc is a candidate for PCN in labor despite hx of late onset GBS (8 weeks old infant)-would rx in labor but would get a swab at the time of delivery prior to abx so peds knows about colonization status Disc generally stay in hosptial with delivery 34 wks In addition to providing routine care, I spent a total of 20-29 minutes on the date of this encounter actively managing one or more chronic medical conditions pre-dating the , including dose adjustment of at least one prescription medication, as described above. This time statement reflects only the proportion of my total time spent meeting with the patient, reviewing documentation and coordinating care that is directly attributable to the pre- condition(s). Odilia Franks MD 09/07/2023 - 32w0Nereyda Mustafa RN NST Report Baseline Heart Rate: 145 Accelerations: present Movement: present Decelerations: absent Contractions: irritability Interpretation: reactive Co-sign Provider (Physician Name): MD NEREYDA Franks RN Associated attestation - Odilia Franks MD - 09/09/2023 1312 EDT I reviewed NST and agree with above Reactive Odilia Franks MD 09/06/2023 - 31w6d - Julieta Del Rosario RN NST Report [id number] Baseline Heart Rate: 145 Accelerations: present Movement: present Decelerations: absent Contractions: rare Interpretation: reactive Co-sign Provider (Physician Name): Dr. Suleman SILVA, LYDIA Associated attestation - Odilia Franks MD - 09/09/2023 1312 EDT I reviewed NST and agree with above Reactive Odilia Franks MD 09/06/2023 - 31w6d - Cherrie Shah MD Antepartum Progress Note Chief Complaint: PEC w SF diagnosed at 31+4 Hospital Day: 2 Overnight Events: - s/p BMZ course 09/03-09/04 - normotensive on labetalol 200mg BID Subjective: Feeling well and was able to get sleep overnight. No headache or visual changes, no abdominal cramping. Happy her BP has looked good. Objective: BP 111/59 (BP Cuff Location: Left arm, BP Patient Position: Semi fowlers) Temp 36.4 ??C (97.5 ??F) (Temporal) Resp 18 Ht 172.7 cm (68) Wt (!) 106.1 kg (234 lb) SpO2 98% BMI 35.58 kg/m?? Gen: NAD Resp: no increased work of breathing Abdomen: deferred Extremities: trace LE edema Labs Recent Labs 09/04/23 1647 WBC 11.89 RBC 4.69 HGB 13.6 HCT 39.9 PLT 396* MCV 85 MCH 29.0 MCHC 34.1 Recent Labs 09/04/23 1648 CREATININE 0.39* Recent Labs 09/04/23 1806 AST 21 ALT 22 Imaging: Growth completed 09/04, AGA, final report pending Assessment/Plan: 28 y.o. @ 31w6d with PEC w SF diagnosed at 31+4, received procardia x1 and magnesium gtt during transport to [facility]. Stable and majority normotensive after arrival and initiating labetalol 200mg, magnesium discontinued. PEC labs wnl, 24hr urine protein currently being processed. Intermittent mild headache but no other signs/sxs of PEC with unremarkable exam. 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 I agree with the findings and plan of care as documented in the resident's note. 28yo at 31w6d admitted at 31w4d for preeclampsia w/ SF by BP. Required one dose of immediate release nifedipine and has been normotensive on labetolol 200mg BID since that time. S/p IV mag at diagnosis. 24hr urine elevated at 500, PEP otherwise normal. Plan to recheck labs tomorrow AM. GS reveals appropriately grown fetus, read to be confirmed. Riya Shell MD 09/06/2023 11:31 09/06/2023 - 31w6d - Jesus Xiao RN NST Report [id number] Baseline Heart Rate: 135 Accelerations: present Movement: present Decelerations: absent Contractions: absent Interpretation: reactive Co-sign Provider (Physician Name): Dr. Odilia IRELAND RN Associated attestation - Odilia Franks MD - 09/09/2023 1313 EDT I reviewed NST and agree with above Reactive Odilia Franks MD 09/05/2023 - 31w5d - Julieta Del Rosario RN NST Report [id number] Baseline Heart Rate: 140 Accelerations: present Movement: present Decelerations: present- variable Contractions: absent Interpretation: reactive Co-sign Provider (Physician Name): Dr. An- Okay to come off per Dr. Omaira SILVA RN Associated attestation - Kylah An MD - 09/05/2023 1437 EDT I reviewed the above NST. It is reactive. I agree with the assessment. Kylah An MD Fellow Maternal Medicine 09/05/23 09/05/2023 - 31w5d - Cherrie Shah MD Antepartum Progress Note Chief Complaint: PEC w SF diagnosed at 31+4 Hospital Day: 2 Overnight Events: - admitted to L&D after transfer from [facility] - sustained SR BP before transfer, received procardia 10mg x1 and magnesium gtt for transport - stable on arrival, mag dc'd, long-acting labetalol 200mg BID started - normotensive overnight - s/p BMZ #1, second ordered for today Subjective: Feeling well. Was able to get some sleep last night. Intermittent headache, feels similar to her usual headache. No visual changes, chest pain, fevers/chills. Has a fan on her chest but doesn't feel hot, just likes airflow. No nausea/vomiting. Had some blood on toilet paper when she wiped earlier, thinks this was likely d/t clemens placement and removal as this has now resolved. No lightheadedness when walking. Objective: BP 113/67 (BP Cuff Location: Left arm, BP Patient Position: Semi fowlers) Temp 36.1 ??C (97 ??F) (Temporal) Resp 16 Ht 172.7 cm (68) Wt (!) 108 kg (238 lb) SpO2 98% BMI 36.19 kg/m?? Gen: NAD Resp: no increased work of breathing Abdomen: deferred Extremities: trace LE edema Labs Recent Labs 09/04/23 1647 WBC 11.89 RBC 4.69 HGB 13.6 HCT 39.9 PLT 396* MCV 85 MCH 29.0 MCHC 34.1 Recent Labs 09/04/23 1648 CREATININE 0.39* Recent Labs 09/04/23 1806 AST 21 ALT 22 Imaging: none, plan scan today Assessment/Plan: 28 y.o. @ 31w5d with PEC w SF diagnosed at 31+4, received procardia x1 and magnesium gtt during transport to [facility]. Stable and majority normotensive after arrival and initiating labetalol 200mg, magnesium discontinued. PEC labs wnl, 24hr currently being collected. Intermittent mild headache but no other signs/sxs of PEC with unremarkable exam. Due for growth scan and second BMZ today. 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 I agree with the findings and plan of care as documented in Dr Shah's note. 28 y.o. at 31w5d gestation by early US dating admitted with preeclampsia with severe features. Normal serum labs last night. Mild headache overnight which has improved. Normotensive on labetalol 200 mg bid. Routine ultrasound performed with normal limited anatomy (see US report for full details). EFW 2069g (66%), AC 94%. LEA 23.4 with MVP 8.9 cm. Reports passed diabetes screen x2 this and no history of GDM. In patient until delivery, likely IOL at 34w0d. Kylha An MD Obstetrics/Gynecology 09/05/2023 - 31w5d - Josey Win RN 19:20 Rec'd report at bedside from Edel Morejon RN. Pt sitting up in bed, endorsing feeling well. Denies s/s preE. Endorses FM. cEFM in place. Plan of care reviewed. 20:18 Education on heparin, 24 hour urine given. Pt verbalizes understanding. See MAR for admin 21:05 24 hour urine start. 22:10 Transferred to [place] [id number], report at bedside to LYDIA Hussein. 09/04/2023 - 31w4d - Angie Muniz RN 1510 Pt arrived via transport from [facility] c , currently on mag 2g/hr. Rh+ 31+4. S/p mag bolus 4g 1215. Nifedipine last given 1015 BMZ given 1100. Pt took 1000mg tylenol 0840 this am. Hx PEC in two prior pregnancies. Currently c/o CAMPBELL 5/10, blurry vision. Nausea. Clemens in place with 450cc urine in bag from transport. 1515 Mag restarted, tubing changed over from transport tubing 1630 Second IV placed, labs drawn as ordered. 1647 Mag d/c'd per Dr Bird. Plan to start labetalol. 1650 Clemens removed. Cervical exam fingertip and long Marge. 1712 200mg labetalol given as ordered. Pt declines tylenol for CAMPBELL, resolving and blurry vision better. 192 Report given to LYDIA Dowling Last Filed Vital Signs Vital Sign Reading Time Taken Comments Blood Pressure 126/71 09/25/2023 0835 EDT Pulse 115 09/04/2023 1147 EDT Temperature 36.7 ??C (98.1 ??F) 09/25/2023 0835 EDT Respiratory Rate 16 09/25/2023 0835 EDT Oxygen Saturation 99% 09/25/2023 0505 EDT Inhaled Oxygen Concentration - - Weight 107.5 kg (237 lb) 09/21/2023 0829 EDT Height 172.7 cm (5' 8) 09/04/2023 1819 EDT Body Mass Index 36.04 09/04/2023 1819 EDT Plan of Treatment Health Maintenance Due Date Last Done Comments Pneumococcal Immunization (1 of 2 - PCV) 07/08/1999 Hepatitis B Vaccine (1 of 3 - 19+ 3-dose series) 07/07 COVID-19 Vaccine ( - 2022- season) 2022 Hepatitis C Screen Completed 04/20/2023 Procedures Procedure Name Priority Date/Time Associated Diagnosis Comments ECG REPORT - SCANNED 09/29/2023 13:25 EDT ORDERS - SCANNED 09/29/2023 12:2 1 EDT ECG REPORT - SCANNED 09/29/2023 12:21 EDT TYPE AND SCREEN Routine 09/25/2023 8:52 EDT COMPLETE BLOOD COUNT STAT 09/23/2023 14:37 EDT ANESTHESIA PERIPHERAL BLOCK - SINGLE SHOT Routine 09/22/2023 8:36 EDT ANESTHESIA PERIPHERAL BLOCK - SINGLE SHOT Routine 09/22/2023 8:36 EDT ANESTHESIA PERIPHERAL BLOCK - SINGLE SHOT Routine 09/22/2023 8:36 EDT ANESTHESIA PERIPHERAL BLOCK - SINGLE SHOT Routine 09/22/2023 8:36 EDT POC US ANESTHESIA NERVE BLOCK TAP Routine 09/22/2023 8:01 EDT SURGICAL PATHOLOGY Routine 09/22/2023 7: 47 EDT ANESTHESIA INTUBATION Routine 09/22/2023 7:26 EDT ANESTHESIA INTUBATION Routine 09/22/2023 7:26 EDT SECTION 09/22/2023 7:03 EDT Breech GROUP B STREP PCR Routine 09/21/2023 15: 51 EDT BLOOD BANK HOLD Routine 09/21/2023 12:16 EDT HOLD SST Routine 09/21/2023 12:16 EDT HOLD BLUE TOP Routine 09/21/2023 12:16 EDT NONSTRESS TEST Routine 09/20/2023 23:12 EDT URIC ACID Routine 09/19/2023 17:01 EDT COMPLETE BLOOD COUNT Routine 09/19/2023 17:01 EDT CREATININE Routine 09/19/2023 17:01 EDT LDH Routine 09/19/2023 17:01 EDT FIBRINOGEN Routine 09/19/2023 17:01 EDT ALT Routine 09/19/2023 17:01 EDT AST Routine 09/19/2023 17:01 EDT TYPE AND SCREEN Routine 09/19/2023 8:36 EDT TYPE AND SCREEN Routine 09/16/2023 10:43 EDT TYPE AND SCREEN Routine 09/13/2023 12:17 EDT FIBRINOGEN STAT 09/12/2023 15:18 EDT LDH STAT 09/12/2023 15:18 EDT URIC ACID STAT 09/12/2023 15:18 EDT CREATININE STAT 09/12/2023 15:18 EDT COMPLETE BLOOD COUNT STAT 09/12/2023 15:18 EDT ALT STAT 09/12/2023 15:18 EDT AST STAT 09/12/2023 15:18 EDT POCT GLUCOSE, INTERFACED Routine 09/11/2023 15:03 EDT HOLTER MONITOR - 24 Routine 09/11/2023 1 4:58 EDT ECG REPORT - SCANNED 09/11/2023 13:45 EDT POCT GLUCOSE, INTERFACED Routine 09/10/2023 12:15 EDT EKG 12-LEAD Routine 09/10/2023 10:48 EDT NT PRO BNP Add-On 09/10/2023 7:29 EDT TSH Add-On 09/10/2023 7:29 EDT CALCIUM Add-On 09/10/2023 7:29 EDT MAGNESIUM Add-On 09/10/2023 7:29 EDT ELECTROLYTES Add-On 09/10/2023 7:29 EDT AST Routine 09/10/2023 7:29 EDT ALT Routine 09/10/2023 7:29 EDT CREATININE Routine 09/10/2023 7:29 EDT COMPLETE BLOOD COUNT Routine 09/10/2023 7:29 EDT LDH Routine 09/10/2023 7:29 EDT TYPE AND SCREEN Routine 09/10/2023 7:28 EDT TYPE AND SCREEN Routine 09/07/2023 9:12 EDT AST Routine 09/07/2023 9:12 EDT ALT Routine 09/07/2023 9:12 EDT CREATININE Routine 09/07/2023 9:12 EDT COMPLETE BLOOD COUNT Routine 09/07/2023 9:12 EDT LDH Routine 09/07/2023 9:12 EDT PROTEIN, TOTAL, 24 HR, URINE Routine 09/05/2023 21:05 EDT POC LD US ROUTINE 2ND TRIMESTER OB Routine 09/05/2023 11:23 EDT GROUP B STREP PCR Routine 09/04/2023 18: 15 EDT URIC ACID Routine 09/04/2023 18:06 EDT LDH Routine 09/04/2023 18:06 EDT ALT Routine 09/04/2023 18:06 EDT AST Routine 09/04/2023 18:06 EDT PATIENT RE-TYPE Routine 09/04/2023 16:55 EDT PRE-ECLAMPSIA PROTEIN/CREATININE RATIO, URINE Routine 09/04/2023 16:55 EDT CREATININE Routine 09/04/2023 16:48 EDT FIBRINOGEN Routine 09/04/2023 16:48 EDT TYPE AND SCREEN Routine 09/04/2023 16:47 EDT COMPLETE BLOOD COUNT Routine 09/04/2023 16:47 EDT OSMOLALITY, URINE Routine 08/14/2023 4:3 3 EDT UREA NITROGEN, URINE 24HR Routine 08/14/2023 4:33 EDT CHLORIDE, URINE 24HR Routine 08/14/2023 4:33 EDT HEPATITIS C AB W REFLEX TO HCV RNA BY PCR Routine 04/20/2023 10:45 EST from Last 3 Months or Most Recently Relevant to Health Maintenance Results * ECG REPORT - SCANNED (09/29/2023 13:25 EDT) 09/29/2023 13:2 5 EDT Scan 2 Dining Room Server PROCEDURE/MINOR ANTONIO GICAL ORDERABLES * ECG REPORT - SCANNED (09/29/2023 12:21 EDT) 09/29/2023 12:2 1 EDT Scan 2 Dining Room Server PROCEDURE/MINOR ANTONIO GICAL ORDERABLES * ORDERS - SCANNED (09/29/2023 12:21 EDT) 09/29/2023 12:2 1 EDT Scan 2 Dining Room Server ADMISSION ORDERABLE S * TYPE AND SCREEN (09/25/2023 8:52 EDT) Only the most recent of7 resultswithin the time period is included. ABO A 09/25/2023 10:02 EDT [facility] Rh Factor Positive 09/25/2023 10:02 EDT [facility] Antibody Screen Negative 09/25/2023 10:02 EDT [facility] Specimen Expires: 09/28/2023 @ 23:59 09/25/2023 10:02 EDT [facility] Blood VENOUS BLOOD / Unknown Venipuncture / Unknown 09/25/2023 8:52 EDT 09/25/2023 8:59 EDT Regina Thomson MD BLOOD BANK TESTS Performing Organization Address City/State/[facility] Co de Phone Number [facility] [address] [phone] * (ABNORMAL) COMPLETE BLOOD COUNT (09/23/2023 14:37 EDT) Only the most recent of6 resultswithin the time period is included. WBC 7.46 4.00 - 12.40 K/cmm 09/23/2023 14:54 [facility] RBC 2.97(L) 3.86 - 5.04 M/cmm 09/23/2023 14:54 [facility] Hemoglobin 8.7(L) 11.6 - 15.2 g/dL 09/23/2023 14:54 [facility] HCT 25.7(L) 34.9 - 44.4 % 09/23/2023 14:54 [facility] MCV 87 81 - 98 fL 09/23/2023 14:54 [facility] MCH 29.3 26.7 - 33.3 pg 09/23/2023 14:54 [facility] MCHC 33.9 32.1 - 35.9 g/dL 09/23/2023 14:54 [facility] RDW-CV 13.2 <14.7 % 09/23/2023 14:54 [facility] RDW-SD 41.3 <50.4 fl 09/23/2023 14:54 [facility] PLT 195 141 - 377 K/cmm 09/23/2023 14:54 [facility] MPV 9.5 9.5 - 12.7 fL 09/23/2023 14:54 [facility] Blood VENOUS BLOOD / Unknown Venipuncture / Unknown 09/23/2023 14:37 EDT 09/23/2023 14:42 EDT Chasity Lee MD HEMATOLOGY & PF4 ORD ERABLES [facility] [address] [place] [address] * HC - TAP BLOCK BILATERAL BY INJECTION(S), HC - US GUIDANCE NEEDLE PLACEMENT IMG S&I, HC - US VASC ACCESS SITS VSL PATENCY NDL ENTRY, RI ANESTHESIA NON- TIMED PLACEHOLDER (09/22/2023 8:36 EDT) Narrative Mariano Prescott - 09/22/2023 8:36 EDT Mariano Prescott ? 09/22/2023 ??8:37 Peripheral Block - Single Shot Patient location during procedure: OR Start time: 09/22/2023 8:25 End time: 09/22/2023 8:34 Staffing Performed: resident/GYNECOLOGIST/AA Anesthesiologist: Tomy Bustos DO Resident/GYNECOLOGIST: Mariano Prescott Performed by: Mariano Prescott Authorized by: Tomy Bustos DO ?? Preanesthetic Checklist Completed: patient identified, IV checked, risks and benefits discussed, surgical consent, monitors and equipment checked, pre-op evaluation and timeout performed Peripheral Block Prep: ChloraPrep, skin prep agent completely dried prior to procedure, sterile gloves and mask used Patient monitoring: BP cuff, heart rate, continuous pulse ox and phototypesetting equipment monitor Patient sedation: general anesthesia Block type: TAP Laterality: bilateral Injection technique: single-shot Guidance: ultrasound guided Needle Needle type: [place] Needle gauge: 20 G Needle length: 120 mm Needle localization: ultrasound guidance Test dose: negative Assessment Injection assessment: negative aspiration for heme, no paresthesia on injection, incremental injection and local visualized surrounding nerve on ultrasound Paresthesia pain: none Heart rate change: no Slow fractionated injection: yes Ultrasound Equipment Machine used: Intelligize M7 sterile probe cover Probe did NOT contact body fluids/broken skin. Standard cleaning with recommended disinfectant at surgeon's request, for post-op pain management Tomy Bustos DO ANESTHESIA ORDERABLE S * POC US ANESTHESIA NERVE BLOCK TAP (09/22/2023 8:01 EDT) Narrative 09/22/2023 8:01 EDT This is a non-reportable exam. Tomy Bustos DO IMG US POC ORDERABLE S * SURGICAL PATHOLOGY (09/22/2023 7:47 EDT) Note to Patient The following pathology results have been interpreted by your pathologist and may be available to you before your health provider has had the opportunity to review them. Please allow time for your provider to receive these results and explore management options, if applicable. 09/25/2023 9:19 [facility] Final Diagnosis A. PLACENTA, VAGINAL DELIVERY: [place] placenta, 305 grams (<10th percentile for 34 and 1/7 weeks' gestation): - Focal retromembranous hemorrhage. - Maternal vascular malperfusion: - Small for gestational age placenta (by weight if complete). - Accelerated villous maturation. - Increased perivillous fibrin deposition. - Mild to moderate patchy villous edema. - Hypocoiled three vessel umbilical cord. 09/25/2023 9:19 [facility] Attestation There was significant resident/fellow involvement in the diagnostic evaluation of this case. By the signature below, the attending physician certifies that they have personally conducted a gross and/or microscopic examination of the described specimens and rendered or confirmed the above diagnosis. 09/25/2023 9:19 [facility] at 0919 Clinical History PEC with SF, 34 week cs. 09/25/2023 9:19 [facility] Gross Description A. Received fresh labelled with proper patient identification (initials S, D) and placenta is a 305 gm ovoid castle placenta measuring 13.5 x 12.5 x 3.0 cm (trimmed, formalin fixed). The surface is mejia-blue with a magistral vascular pattern. There is minimal subchorionic fibrin deposition. The maternal surface is red-brown with an intact basal plate. There is scant adherent blood clot and no indentation. The cut surface of the placental parenchyma is red-brown and spongy. There are no discrete lesions present. The membranes are barnard, smooth and glistening with a marginate insertion around the entire placental disc. The point of rupture is 1 cm from the nearest disc margin. There is a 11.0 cm in length and 1.1 cm in diameter 3 vessel white umbilical cord. It inserts 3.5 cm from the nearest disc edge and there are no coils per 10 cm. Interior Decorator Painting sections are submitted as follows: BLOCK CHANG A1- membrane roll and cross-section of end of cord A2- membrane roll and cross-section of cord 5 cm from insertion site A3- full thickness section of placental disc adjacent to umbilical cord insertion site A4-A6- 3 full thickness sections of central 2/3 of placental disc ABEL ORO(ASCP) 09/23/2023 9:12 09/25/2023 9:19 EDT [facility] Resident/Masood w: Nikki Sotelo MD PhD 09/25/2023 9:19 EDT [facility] Performing Lab [facility] 9:19 EDT [facility] Scanned Images 09/25/2023 9:19 EDT [facility] Tissue PLACENTAL STRUCTURE / Unknown 09/22/2023 7:47 EDT 09/22/2023 9:01 EDT Comment:Pre-op diagnosis: Breech Regina Thomson MD PATHOLOGY ORDERABL ES [facility] [address] [place] [address] * RI AN ELECTIVE ENDOTRACHEAL AIRWAY, RI ANESTHESIA NON-TIMED PLACEHOLDER (09/22/2023 7:26 EDT) Narrative Mariano Prescott - 09/22/2023 7:26 EDT Mariano Prescott ? 09/22/2023 ??7:42 Airway Date/Time: 09/22/2023 7:26 Urgency: elective Airway not difficult General Information and Staff Patient location during procedure: OR Anesthesiologist: Tomy Bustos DO Resident/GYNECOLOGIST: Mariano Prescott Performed: resident/GYNECOLOGIST/AA Performed by: Mariano Prescott Authorized by: Tomy Bustos DO ?? Indications and Patient Condition Indications for airway management: anesthesia Sedation level: GA Preoxygenated: yes Patient position: sniffing Ventilation assessment: 0 - not attempted Final Airway Details Final airway type: endotracheal airway Successful airway: ETT Cuffed: yes Successful intubation technique: video laryngoscopy Fermin Facilitating devices/methods: intubating stylet Endotracheal tube insertion site: oral Blade: Joana Blade size: #3 ETT size (mm): 6.5 Cormack-Lehane Classification: view obtained with video laryngoscopy Placement verified by: capnometry and palpation of cuff Cuff volume (mL): 10 Measured from: lips Number of attempts at approach: 1 Number of other approaches attempted: 0 Additional Comments Stat c/s for breech presentation. RSI with cricoid pressure. Cords clear/oropharynx clear on visualization. Easy ETT placement, atraumatic. Tomy Bustos DO ANESTHESIA ORDERABLE S * GROUP B STREP PCR (09/21/2023 15:51 EDT) Only the most recent of2 resultswithin the time period is included. Group B Strep PCR Negative Negative 09/22/2023 14:16 EDT [facility] Swab POOLED SPECIMEN FROM VAGINAL INTROITUS AND RECTAL SWAB / Unknown Swab / Unknown 09/21/2023 15:51 EDT 09/21/2023 16:37 EDT Chasity Lee MD MICROBIOLOGY - GENER AL ORDERABLES [facility] [address] [place] [id number] * HOLD SST (09/21/2023 12:16 EDT) Hold Hold 09/21/2023 13:31 EDT [facility] Blood VENOUS BLOOD / Unknown Venipuncture / Unknown 09/21/2023 12:16 EDT 09/21/2023 12:23 EDT Chasity Lee MD LAB INFO SERVICE AND SUPPORT & PHONE RESULT Performing Organization Address [facility]/ZIP Co de Phone Number [facility] [address], [place] [address] * HOLD BLUE TOP (09/21/2023 12:16 EDT) Hold Hold 09/21/2023 13:31 EDT [facility] Blood VENOUS BLOOD / Unknown Venipuncture / Unknown 09/21/2023 12:16 EDT 09/21/2023 12:25 EDT Chasity Lee MD LAB INFO SERVICE AND SUPPORT & PHONE RESULT Performing Organization Address [facility] Co de Phone Number [facility] [address], [place] [address] * BLOOD BANK HOLD (09/21/2023 12:16 EDT) Hold BB Spec will exp at 23:59, 3 days from collect date 09/21/2023 12:47 EDT [facility] Blood VENOUS BLOOD / Unknown Venipuncture / Unknown 09/21/2023 12:16 EDT 09/21/2023 12:27 EDT Chasity Lee MD BLOOD BANK TESTS Performing Organization Address [facility] Co de Phone Number [facility] [address] [place], [place] [phone] * NONSTRESS TEST (09/20/2023 23:12 EDT) [facility]ative [facility] - 09/20/2023 23:12 EDT Manuel Shi RN ? 09/20/2023 23:14 NST Report Baseline Heart Rate: ??130 Accelerations: ??present Movement: ??present ? Decelerations: ??absent Contractions: ??rare ?? Interpretation: ??reactive Placed on monitors from [id number] Co-sign Provider (Physician Name): MANUEL SHI, LDYIA Sharon Bird OB GYNE ORDERABLES Performing Organization Address [facility] Co de Phone Number [facility] POINT OF CARE * (ABNORMAL) FIBRINOGEN (09/19/2023 17:01 EDT) Only the most recent of3 resultswithin the time period is included. Fibrinogen 532(H) 171 - 384 mg/dL 09/19/2023 17:44 EDT [facility] Blood VENOUS BLOOD / Unknown Venipuncture / Unknown 09/19/2023 17:01 EDT 09/19/2023 17:22 EDT Sharon Bird HEMATOLOGY & PF4 ORD ERABLES Performing Organization Address [facility] Co de Phone Number [facility] [address], [place] [phone] * URIC ACID (09/19/2023 17:01 EDT) Only the most recent of3 resultswithin the time period is included. Uric Acid 3.1 2.2 - 7.7 mg/dL 09/19/2023 17:27 EDT [facility] Blood VENOUS BLOOD / Unknown Venipuncture / Unknown 09/19/2023 17:01 EDT 09/19/2023 17:11 EDT Sharon Bird CHEMISTRY & BLOOD GA S ORDERABLES Performing Organization Address [facility]/ZIP Co de Phone Number [facility] [address] [place] [address] * ALT (09/19/2023 17:01 EDT) Only the most recent of5 resultswithin the time period is included. ALT 20 <35 U/L 09/19/2023 17:27 EDT [facility] Blood VENOUS BLOOD / Unknown Venipuncture / Unknown 09/19/2023 17:01 EDT 09/19/2023 17:11 EDT Sharon Bird CHEMISTRY & BLOOD GA S ORDERABLES Performing Organization Address City/[facility] [address] [facility]/ZIP Co de Phone Number [facility] [address], [place] [phone] * AST (09/19/2023 17:01 EDT) Only the most recent of5 resultswithin the time period is included. AST 18 15 - 46 U/L 09/19/2023 17:27 EDT [facility] Blood VENOUS BLOOD / Unknown Venipuncture / Unknown 09/19/2023 17:01 EDT 09/19/2023 17:11 EDT Sharon Snidersen CHEMISTRY & BLOOD GA S ORDERABLES Performing Organization Address [facility] Co de Phone Number [facility] [address], [place] [address] * LDH (09/19/2023 17:01 EDT) Only the most recent of5 resultswithin the time period is included. LDH 151 120 - 246 U/L 09/19/2023 17:27 EDT [facility] Blood VENOUS BLOOD / Unknown Venipuncture / Unknown 09/19/2023 17:01 EDT 09/19/2023 17:11 EDT Sharon Snidersen CHEMISTRY & BLOOD GA S ORDERABLES Performing Organization Address City/[facility] [address] [facility]/ZIP Co de Phone Number [facility] [address], [place] [phone] * (ABNORMAL) CREATININE (09/19/2023 17:01 EDT) Only the most recent of5 resultswithin the time period is included. Creatinine 0.37(L) 0.52 - 1.04 mg/dL 09/19/2023 17:27 EDT [facility] eGFR 139 >60 mL/min/1.73 m2 09/19/2023 17:27 EDT [facility] Blood VENOUS BLOOD / Unknown Venipuncture / Unknown 09/19/2023 17:01 EDT 09/19/2023 17:11 EDT Sharon Bird CHEMISTRY & BLOOD GA S ORDERABLES Performing Organization Address [facility] Co de Phone Number [facility] [address] [place] [address] * (ABNORMAL) POCT GLUCOSE, INTERFACED (09/11/2023 15:03 EDT) Only the most recent of2 resultswithin the time period is included. Glucose, POC 101(H) 70 - 100 mg/dL 09/11/2023 15:47 EDT [facility] HN LAB POC COMMENT (GLUCOSE) Test Performed by Nursing Services 09/11/2023 15:47 EDT [facility] Blood CAPILLARY BLOOD / Unknown 09/11/2023 15:03 EDT 09/11/2023 15:47 EDT Odilia Franks MD POINT OF CARE TEST O RDERABLES Performing Organization Address [facility] de Phone Number [facility] [address] [place] [address] * HOLTER MONITOR-24: PLACED IN CLINIC (09/11/2023 14:58 EDT) Anatomical Region Laterality Modality Other 09/15/2023 18:4 2 EDT Narrative 09/17/2023 21:13 EDT Patient monitored for 1d 4h, analyzable time was 1d 4h starting on 09/11/2023 02:58 pm. Primary rhythm was Sinus Rhythm. Average heart rate was 85 bpm, Minimum heart rate was 55 bpm on Day :56:09 am, Max heart rate was 133 bpm on :06:42 pm SVE(s): [place] was < 0.01 %, 2 total SVE(s) Patient recorded 7 event(s) during the monitoring period - sinus rhythm was present. Sharon Bird CARDIAC SERVICES ORD ERABLES * ECG REPORT - SCANNED (09/11/2023 13:45 EDT) 09/11/2023 13:4 5 EDT Scan 2 Dining Room Server PROCEDURE/MINOR ANTONIO GICAL ORDERABLES * EKG 12-LEAD (09/10/2023 10:48 EDT) 09/10/2023 10:4 8 EDT Narrative [facility] EKG - 09/11/2023 13:32 EDT ? [facility] ? Test Date: ?2023-09-10 Pat Name: ? HASMUKH YOUNG ? Department: ?? B7 Maternity ? Room: ? B7M22 Gender: ? Female ? Senior Controller: ?? [id number] : ?1995 ? Requested By: MARGE KUMAR Order Number: [id number] ? Reading : ?? TANK HINKLE MD ? Measurements Intervals ?[place] ? Rate: ? 101 ?P: ?27 RI: ? 142 ?QRS: ?27 QRSD: ? 103 ?T: ?24 QT: ? 334 ? QTc: ?435 ? Interpretive Statements SINUS TACHYCARDIA ABNORMAL RHYTHM ECG Compared to ECG 04/30/2016 19:36:13 No significant changes I reviewed the tracing and have either agreed or edited the findings in this report. Electronically Signed On 09-11-2023 13:32:37 EDT by TANK HINKLE MD. Procedure Note Tank Hinkle MD - 09/11/2023 [facility] Test Date: 2023-09-10 Pat Name: HASMUKH YOUNG Department: B7 [facility] Gender: Female Senior Controller: [id number] : 1995 Requested By: MARGE KUMAR Order Number: [id number] Ender MD: TANK HINKLE MD Measurements Intervals [place] Rate: 101 P: 27 RI: 142 QRS: 27 QRSD: 103 T: 24 QT: 334 QTc: 435 Interpretive Statements SINUS TACHYCARDIA ABNORMAL RHYTHM ECG Compared to ECG 04/30/2016 19:36:13 No significant changes I reviewed the tracing and have either agreed or edited the findings inthis report. Electronically Signed On 09-11-2023 13:32:37 EDT by TANK ROB. Sharon Bird CARDIAC ECG ORDERABL ES Performing Organization Address City/[facility] [address] [facility]/ZIP Co de Phone Number [facility] EKG * TSH (09/10/2023 7:29 EDT) TSH 3.60 0.47 - 4.68 mIU/L 09/10/2023 14:46 EDT [facility] Blood VENOUS BLOOD / Unknown Venipuncture / Unknown 09/10/2023 7:29 EDT 09/10/2023 7:39 EDT Narrative [facility] - 09/10/2023 14:46 EDT The results of this assay can be falsely lowered due to the consumption of Biotin. [facility] CHEMISTRY & BLOOD GA S ORDERABLES Performing Organization Address [facility] Co de Phone Number [facility] [address] [place] [address] * NT PRO BNP (09/10/2023 7:29 EDT) NT-pro BNP <20 <95 pg/mL 09/11/2023 18:51 EDT [facility] Comment: In the acute setting NT-proBNP values <300 pg/mL have a 98% NPV for excluding acute heart failure. In outpatient populations, NT-proBNP values <125 have a 99% NPV for excluding heart failure. Blood VENOUS BLOOD / Unknown Venipuncture / Unknown 09/10/2023 7:29 EDT 09/10/2023 7:39 EDT [facility] CHEMISTRY & BLOOD GA S ORDERABLES Performing Organization Address [facility]/State/ZIP Co de Phone Number [facility] [address] [place] [address] * (ABNORMAL) MAGNESIUM (09/10/2023 7:29 EDT) Pathologist [facility] Magnesium 1.6(L) 1.7 - 2.8 mg/dL 09/10/2023 8:10 EDT [facility] Blood VENOUS BLOOD / Unknown Venipuncture / Unknown 09/10/2023 7:29 EDT 09/10/2023 7:39 EDT Sharon Snidersen CHEMISTRY & BLOOD GA S ORDERABLES Performing Organization Address [facility]/ZIP Co de Phone Number [facility] [address] [place] [address] * CALCIUM (09/10/2023 7:29 EDT) [facility] Calcium 9.0 8.5 - 10.5 mg/dL 09/10/2023 8:10 EDT [facility] Blood VENOUS BLOOD / Unknown Venipuncture / Unknown 09/10/2023 7:29 EDT 09/10/2023 7:39 EDT Sharon Snidersen CHEMISTRY & BLOOD GA S ORDERABLES Performing Organization Address City/[facility] [address]/ZIP Co de Phone Number [facility] [address] [place] [address] * (ABNORMAL) ELECTROLYTES (09/10/2023 7:29 EDT) Pathologist [facility] Sodium 133(L) 136 - 145 mmol/L 09/10/2023 8:10 EDT [facility] Potassium 4.3 3.5 - 5.0 mmol/L 09/10/2023 8:10 EDT [facility] Chloride 105 96 - 110 mmol/L 09/10/2023 8:10 EDT [facility] CO2 Total 19(L) 22 - 32 mmol/L 09/10/2023 8:10 EDT [facility] Anion Gap 9 5 - 14 mmol/L 09/10/2023 8:10 EDT [facility] Blood VENOUS BLOOD / Unknown Venipuncture / Unknown 09/10/2023 7:29 EDT 09/10/2023 7:39 EDT Sharon Bird CHEMISTRY & BLOOD GA S ORDERABLES Performing Organization Address [facility] Co de Phone Number [facility] [address] [place] [address] * (ABNORMAL) PROTEIN, TOTAL, 24 HR, URINE (09/05/2023 21:05 EDT) Total Protein, Urine 10 See Note mg/dL 09/06/2023 8:00 EDT [facility] Comment: NOTE: Reference range not established Total Protein, Urine 24 hr 500(H) <150 mg/24hrs 09/06/2023 8:00 EDT [facility] Urine Volume 5,000 mL 09/06/2023 8:00 EDT [facility] Urine Collection Period 24.0 Hours 09/06/2023 8:00 EDT [facility] Urine 24 HOUR URINE SPECIMEN / Unknown Urine Collect / Unknown 09/05/2023 21:05 EDT 09/06/2023 7:16 EDT Cely Villar MD URINALYSIS ORDERABLE S Performing Organization Address [facility] de Phone Number [facility] [address] [place] [phone] * POC LD US ROUTINE 2ND TRIMESTER OB (09/05/2023 11:23 EDT) Anatomical Region Laterality Modality Ultrasound 09/05/2023 10:2 3 EDT Narrative 09/07/2023 17:53 EDT Indication ======== Transport for preE wi severe features History ====== General History Height 173 cm Height (ft) ?5 ft Height (in) ?8 in Previous Outcomes ?5 Para ?? 2 Pregnancies delivered at term (T) ??0 Pregnancies delivered (P) ??2 Abortions (A) ??2 Living children (L) ?2 Maternal Assessment Height 173 cm Height (ft) ?5 ft Height (in) ?8 in Physical Exam Initial weight 105 kg Initial weight (lb) ?232 lb Initial BMI ?35.28 kg/m?? ========= Number of fetuses: 1 Dating ====== Method of dating: ??based on ultrasound Previous Ultrasound on: ?03/20/2023 Type of prior assessment: ??GA GA at prior assessment date ?7 w + 4 d GA by previous U/S 31 w + 5 d GEORGETTE by previous Ultrasound: ?11/02/2023 Ultrasound examination on: 09/05/2023 GA by U/S based upon: ??AC, BPD, Femur, HC GA by U/S ??32 w + 1 d GEORGETTE by U/S: ?10/30/2023 Assigned: ??based on ultrasound (GA), selected on 09/05/2023 Assigned GA ?31 w + 5 d Assigned GEORGETTE: ??11/02/2023 General Evaluation Cardiac activity Present. FHR 138 bpm. movements: visualized. Presentation: cephalic Placenta: anterior Umbilical cord: Cord vessels: 3 vessel cord. Insertion site: placental insertion: normal Amniotic fluid: Amount of AF: normal. MVP 8.9 cm. LEA 23.4 cm. Q1 2.7 cm, Q2 8.9 cm, Q3 6.6 cm, Q4 5.3 cm Biometry Standard BPD ?80.6 mm 32w 3d 61% Hadlock OFD ?94.0 mm 30w 2d 17% Linda HC 286.4 mm ?30w 5d 28% [place] Cerebellum tr ??43.9 mm 35w 1d 96% Mckeon AC 298.3 mm ?33w 6d 94% Hadlock Femur ??61.4 mm 31w 5d 66% Linda Humerus ?52.4 mm 30w 4d 20% Linda HC / AC ?0.96 EFW ?2,069 g ??66% Berman EFW (lb) ?? 4 lb EFW (oz) ?? 9 oz EFW by: ?Hadlock ([id number]) Extended Deployment Technician 6.4 mm CM 9.1 mm ?? 91% Nicolaides Head / Face / Neck Cephalic index 0.86 ? 95% Nicolaides Extremities / Bony Struc FL / BPD ?? 0.76 FL / HC ?0.21 FL / AC ?0.21 Other Structures FHR ?138 bpm Anatomy Cranium: ?? normal Lateral ventricles: ?normal Choroid plexus: ?normal Midline falx: ??normal Cavum septi pellucidi: normal Cerebellum: ?normal Cisterna magna: ?normal Lips: ??normal Profile: ?? normal Face Lips: ??in suboptimal views 4-chamber view: ?normal RVOT view: normal LVOT view: not visualized 3-vessel view: not visualized [id number] view: not visualized Heart / Thorax Aortic arch view: ??normal Bicaval view: ??normal Cord insertion: ?not adequately visualized Stomach: ?? normal Kidneys: ?? normal Bladder: ?? normal Abdomen Abdom. wall: ?? normal Cervical spine: ?normal Thoracic spine: ?normal Lumbar spine: ??normal Sacral spine: ??normal Arms: ??normal Legs: ??normal Rt upper arm: ??not adequately visualized Rt forearm: ?not adequately visualized Rt hand: ?? normal sex: male Wants to know sex: ?? yes Maternal Structures Uterus / Cervix Uterus: ?Appears normal Cervix: ?Not visualized Ovaries / Tubes / Adnexa Rt ovary: ??Ovary not visualized, no adnexal abnormality seen Lt ovary: ??Visualized, normal appearance Method ====== Voluson E10, Transabdominal ultrasound examination. View: Limited by position. Limited by advanced gestational age Impression ========= [id number] Obstetrical ultrasound with and maternal evaluation This is a castle gestation. The LVOT and abd CI were poorly seen due to position Biometry is consistent with early US dating. Anatomy appears normal as noted above; however, ultrasound cannot detect all anomalies. There is trunk and extremity movement noted. The amniotic fluid volume appears normal. Follow-up ======== Follow-up growth q3 wks DATE OF SERVICE: 09/05/2023 Procedure Note Odilia Franks MD - 09/07/2023 Indication ======== Transport for preE wi severe features History ====== General History Height 173 cm Height (ft) 5 ft Height (in) 8 in Previous Outcomes 5 Para 2 Pregnancies delivered at term (T) 0 Pregnancies delivered (P) 2 Abortions (A) 2 Living children (L) 2 Maternal Assessment Height 173 cm Height (ft) 5 ft Height (in) 8 in Physical Exam Initial weight 105 kg Initial weight (lb) 232 lb Initial BMI 35.28 kg/m?? ========= Number of fetuses: 1 Dating ====== Method of dating: based on ultrasound Previous Ultrasound on: 03/20/2023 Type of prior assessment: GA GA at prior assessment date 7 w + 4 d GA by previous U/S 31 w + 5 d GEORGETTE by previous Ultrasound: 11/02/2023 Ultrasound examination on: 09/05/2023 GA by U/S based upon: AC, BPD, Femur, HC GA by U/S 32 w + 1 d GEORGETTE by U/S: 10/30/2023 Assigned: based on ultrasound (GA), selected on 09/05/2023 Assigned GA 31 w + 5 d Assigned GEORGETTE: 11/02/2023 General Evaluation Cardiac activity Present. FHR 138 bpm. movements: visualized.Presentation: cephalic Placenta: anterior Umbilical cord: Cord vessels: 3 vessel cord. Insertion site: placentalinsertion: normal Amniotic fluid: Amount of AF: normal. MVP 8.9 cm. LEA 23.4 cm. Q1 2.7 cm,Q2 8.9 cm, Q3 6.6 cm, Q4 5.3 cm Biometry Standard BPD 80.6 mm 32w 3d 61% Hadlock OFD 94.0 mm 30w 2d 17% Linda HC 286.4 mm 30w 5d 28% [place] Cerebellum tr 43.9 mm 35w 1d 96% Mckeon AC 298.3 mm 33w 6d 94% Hadlock Femur 61.4 mm 31w 5d 66% Linda Humerus 52.4 mm 30w 4d 20% Linda HC / AC 0.96 EFW 2,069 g 66% Berman EFW (lb) 4 lb EFW (oz) 9 oz EFW by: Hadlock ([id number]) Extended Deployment Technician 6.4 mm CM 9.1 mm 91% Nicolaides Head / Face / Neck Cephalic index 0.86 95% Nicolaides Extremities / Bony Struc FL / BPD 0.76 FL / HC 0.21 FL / AC 0.21 Other Structures FHR 138 bpm Anatomy Cranium: normal Lateral ventricles: normal Choroid plexus: normal Midline falx: normal Cavum septi pellucidi: normal Cerebellum: normal Cisterna magna: normal Lips: normal Profile: normal Face Lips: in suboptimal views 4-chamber view: normal RVOT view: normal LVOT view: not visualized 3-vessel view: not visualized 6-[id number] view: not visualized Heart / Thorax Aortic arch view: normal Bicaval view: normal Cord insertion: not adequately visualized Stomach: normal Kidneys: normal Bladder: normal Abdomen Abdom. wall: normal Cervical spine: normal Thoracic spine: normal Lumbar spine: normal Sacral spine: normal Arms: normal Legs: normal Rt upper arm: not adequately visualized Rt forearm: not adequately visualized Rt hand: normal sex: male Wants to know sex: yes Maternal Structures Uterus / Cervix Uterus: Appears normal Cervix: Not visualized Ovaries / Tubes / Adnexa Rt ovary: Ovary not visualized, no adnexal abnormality seen Lt ovary: Visualized, normal appearance Method ====== [place] E10, Transabdominal ultrasound examination. View: Limited by fetalposition. Limited by advanced gestational age Impression ========= [id number] Obstetrical ultrasound with and maternal evaluation This is a castle gestation. The LVOT and abd CI were poorly seen due to position Biometry is consistent with early US dating. Anatomy appears normal asnoted above; however, ultrasound cannot detect all fetalanomalies. There is trunk and extremity movement noted. The amniotic fluid volume appears normal. Follow-up ======== Follow-up growth q3 wks DATE OF SERVICE: 09/05/2023 Sharon Bird IMG US LD ORDERABLES * (ABNORMAL) PRE-ECLAMPSIA PROTEIN/CREATININE RATIO, URINE (09/04/2023 16:55 EDT) Total Protein, Urine 49 See Note mg/dL 09/04/2023 17:26 EDT [facility] Comment:Reference range not established. Creatinine, Urine 73.7 See Note mg/dL 09/04/2023 17:26 EDT [facility] Comment:Reference range not established. Pre-Eclampsia Protein/Creat inine Ratio, Urine 0.66(H) <0.30 mg/mg Creatinine 09/04/2023 17:26 EDT [facility] Urine URINE / Unknown Urine Collect / Unknown 09/04/2023 16:55 EDT 09/04/2023 17:03 EDT Sharon Bird URINALYSIS ORDERABLE S [facility] [address] [place] [id number] * PATIENT RE-TYPE (09/04/2023 16:55 EDT) ABO A 09/04/2023 17:28 EDT [facility] Rh Factor Positive 09/04/2023 17:28 EDT [facility] Blood VENOUS BLOOD / Unknown Venipuncture / Unknown 09/04/2023 16:55 EDT 09/04/2023 17:15 EDT Sharon Bird BLOOD BANK TESTS Performing Organization Address [facility] [address]/[facility] Co de Phone Number [facility] [address] [place] [id number] * (ABNORMAL) UREA NITROGEN, URINE 24HR (08/14/2023 4:33 EDT) Urea Nitrogen, Urine 317 See Note mg/dL 08/15/2023 22:00 EDT [facility] Comment: NOTE: Reference range not established Urea Nitrogen, Urine 24 hr 34(H) 12 - 20 g/24hrs 08/15/2023 22:00 EDT [facility] Urine Volume 10,700 mL 08/15/2023 22:00 EDT [facility] Urine Collection Period 24.0 Hours 08/15/2023 22:00 EDT [facility] Urine 24 HOUR URINE SPECIMEN / Unknown 08/14/2023 4:33 EDT 08/15/2023 21:41 EDT Provider Outr Resulting Lab URINALYSIS O RDERABLES Performing Organization Address [facility] [address]/ZIP Co de Phone Number [facility] [address] [place] [phone] * (ABNORMAL) CHLORIDE, URINE 24HR (08/14/2023 4:33 EDT) Chloride, Urine 77 See Note mmol/L 08/15/2023 21:55 EDT [facility] Comment: NOTE: Reference range not established Chloride, Urine 24 hr 824(H) 110 - 250 mmol/24hrs 08/15/2023 21:55 EDT [facility] Urine Volume 10,700 mL 08/15/2023 21:55 EDT [facility] Urine Collection Period 24.0 Hours 08/15/2023 21:55 EDT [facility] Urine 24 HOUR URINE SPECIMEN / Unknown 08/14/2023 4:33 EDT 08/15/2023 21:41 EDT Provider Outr Resulting Lab URINALYSIS O RDERABLES Performing Organization Address [facility] [address]/ZIP Co de Phone Number [facility] [address], [place] [id number] * OSMOLALITY, URINE (08/14/2023 4:33 EDT) Pathologist [facility] Osmolality, Urine 298 150 - 1,150 mOsm/kg 08/15/2023 21:55 EDT [facility] Urine URINE / Unknown 08/14/2023 4 :33 EDT 08/15/2023 21:41 EDT Provider Outr Resulting Lab URINALYSIS O RDERABLES Performing Organization Address [facility] [address]/[facility] Co de Phone Number [facility] [address], [place] [phone] * HEPATITIS C AB W REFLEX TO HCV RNA BY PCR (04/20/2023 10:45 EST) Pathologist [facility] Hep C Antibody Negative Negative 04/20/2023 18:39 EST [facility] Blood VENOUS BLOOD / Unknown 04/20/2023 10:45 EST 04/20/2023 16:52 EST Provider Outr Resulting Lab CHEMISTRY & BLOOD GAS ORDERABLES Performing Organization Address City/[facility] [address]/ZIP Co de Phone Number [facility] [address] [place] [address] from Last 3 Months or Most Recently Relevant to Health Maintenance Advance Directives For more information, please contact: [phone] * Full Code (Latest Code Status on File) Date Activated Date Inactivated Comments 09/04/2023 16:01 09/25/2023 16:10 Question Answer Comments When the patient has NO PULSE: Full Code / CPR Who Made the Decision? Default/Not Discussed Care Teams Manufactured Buildings Rep[employer]r Relationship Specialty Start Date End Date Jeniffer Angulo APRN [address] [place] [address] PCP - General 03/27/17
--- OUTSIDE RECORDS SUMMARY | 2023-11-03 15:56 | XMS_ITS | Referral Summary ---
Author Organization [facility] Address [address] [place] [address] Care Team Providers Care Net Developer Programmer Name Role Phone Jeniffer Angulo APRN Primary Care Provider [phone] Encounters Date Type Department Care Team Description 09/27/[address] [facility] Intensive Care Unit [address] [place], [place] [id number] 09/04/2023 15:04 EDT - 09/25/2023 13:48 EDT Hospital Encounter [facility] [address] [place] [address] Shahana Choi MD Vasudeva, Isha, MD Meyer, Marjorie C, MD Preeclampsia, severe, third trimester [O14.13] (Primary Dx); Hx of preeclampsia, prior , currently [O09.299]; Postural dizziness with near syncope; Lactating mother; delivery delivered [O82] Discharge Disposition: Home or Self Care 09/22/2023 7:35 EDT - 09/22/2023 9:35 EDT Surgery [facility] Unit [address] [place], [place] [id number] Regina Thomson MD SECTION 09/22/2023 7:18 EDT Anesthesia Event [facility] Unit [address] [place], [place] [id number] Tomy Bustos DO Kostrubiak, Marc 09/21/2023 23:59 EDT Anesthesia Event [facility] ANESTHESIA [address] [place] [address] Carito Fields MD 09/04/2023 Travel 08/15/2023 Lab Requisition [facility] [address] [address] Outr Resulting Lab, Provider 08/15/2023 Lab Requisition [facility] [address] [address] Outr Resulting Lab, Provider 08/15/2023 Lab Requisition [facility] [address] [address] Outr Resulting Lab, Provider from Last 3 Months Allergies Active Allergy Reactions Criticality Noted Date [...] regnant 09/07/2023 Preeclampsia, severe, third trimester 09/05/2023 Immunizations Name Administration Dates Next Due Tdap Vaccine =>7YO IM 09/14/2023 Social History Tobacco Use Types Packs/Day Years Used Date Smoking Tobacco: Former Cigarettes Passive Smoke Exposure: Current Tobacco Cessation:Counseling Given: Not Answered Comments:1 PPD x 7 yrs Alcohol Use Standard Drinks/Week Comments Yes 0 (1 standard drink = 0.6 oz pur e alcohol) 1-2 4-5 d/wk [facility] Utilities Answer Date Recorded In the [...] any time in the past 12 m [facility], were you homeless or living in a half-way (including now)? No 09/04/2023 Interpersonal Safety Answer Date Record ed How often does anyone, inclu jermain family, hit, punch or physically hurt you? 09/20/2023 How often does anyone, inclu jermain family, insult, scream, curse or threaten to [...] Body Mass Index 36.04 09/04/2023 1819 EDT Functional Status Functional Status Response Date of Assess ment Are you deaf or do you have serious difficulty h earing? No 09/04/2023 Are you blind or do you have serious difficulty seeing, even when wearing glasses? No 09/04/2023 Do you have serious difficul ty walking or climbing stairs? (5 years old or older) No 09/04/2023 Do you have difficulty dress ing or bathing? (5 years old or older) No 09/04/2023 Because of a physical, menta l, or emotional condition, do you have difficulty doing errands alone such as visiting a doctor's office or shopping? (15 years old or older) No 09/04/2023 Cognitive Status Response Date of Assessm ent Because of a physical, menta l, or emotional condition, do you have serious difficulty concentrating, remembering, or making decisions? (5 years old or older) No 09/04/2023 Plan of Treatment Not on file Procedures Procedure Name Priority Date/Time Associated Diagnosis [...] EDT) 09/29/2023 13:2 5 EDT Scan 2 Licensed Final Expense Agents PROCEDURE/MINOR ANTONIO GICAL ORDERABLES * ECG REPORT - SCANNED (09/29/2023 12:21 EDT) 09/29/2023 12:2 1 EDT Scan 2 Licensed Final Expense Agents PROCEDURE/MINOR ANTONIO GICAL ORDERABLES * ORDERS - SCANNED (09/29/2023 12:21 EDT) 09/29/2023 12:2 1 EDT Scan 2 Licensed Final Expense Agents ADMISSION ORDERABLE S * TYPE AND SCREEN (09/25/2023 8:52 EDT) Only the most recent of7 resultswithin the time period is included. ABO A 09/25/2023 10:02 EDT [facility] Rh Factor Positive 09/25/2023 10:02 EDT [facility] Antibody Screen Negative 09/25/2023 10:02 EDT [facility] Specimen Expires: 09/28/2023 @ 23:59 09/25/2023 10:02 EDT [facility] Blood VENOUS BLOOD / Unknown Venipuncture / Unknown 09/25/2023 8:52 EDT 09/25/2023 8:59 EDT Regina Thomson MD BLOOD BANK TESTS Performing Organization Address City/[facility] de Phone Number [facility] [address] [place], [place] [phone] * (ABNORMAL) COMPLETE BLOOD COUNT (09/23/2023 14:37 EDT) Only the most recent of6 resultswithin the time period is included. [facility] WBC 7.46 4.00 - 12.40 K/cmm 09/23/2023 14:54 [facility] RBC 2.97(L) 3.86 - 5.04 M/cmm 09/23/2023 14:54 [facility] Hemoglobin 8.7(L) 11.6 - 15.2 g/dL 09/23/2023 14:54 [facility] HCT 25.7(L) 34.9 - 44.4 % 09/23/2023 14:54 [facility] MCV 87 81 - 98 fL 09/23/2023 14:54 [facility] MCH 29.3 26.7 - 33.3 pg 09/23/2023 14:54 [facility] MCHC 33.9 32.1 - 35.9 g/dL 09/23/2023 14:54 EDT [facility] RDW-CV 13.2 <14.7 % 09/23/2023 14:54 EDT [facility] RDW-SD 41.3 <50.4 fl 09/23/2023 14:54 EDT [facility] PLT 195 141 - 377 K/cmm 09/23/2023 14:54 EDT [facility] MPV 9.5 9.5 - 12.7 fL 09/23/2023 14:54 EDT [facility] Blood VENOUS BLOOD / Unknown Venipuncture / Unknown 09/23/2023 14:37 EDT 09/23/2023 14:42 EDT Chasity Lee MD HEMATOLOGY & PF4 ORD ERABLES [facility] [address] [place] [address] * HC - TAP BLOCK BILATERAL BY INJECTION(S), HC - US GUIDANCE NEEDLE PLACEMENT IMG S&I, HC - US VASC ACCESS SITS VSL PATENCY NDL ENTRY, CA ANESTHESIA NON- TIMED PLACEHOLDER (09/22/2023 8:36 EDT) Narrative Mariano Prescott - 09/22/2023 8:36 EDT Mariano Prescott ? 09/22/2023 ??8:37 Peripheral Block - Single Shot Patient location during procedure: OR Start time: 09/22/2023 8:25 End time: 09/22/2023 8:34 Staffing Performed: resident/ELECTROSTATIC PAINTER/AA Anesthesiologist: Tomy Bustos DO Resident/ELECTROSTATIC PAINTER: Mariano Prescott Performed by: Mariano Prescott Authorized by: Tomy Bustos DO ?? Preanesthetic Checklist Completed: patient identified, IV checked, risks and benefits discussed, surgical consent, monitors and equipment checked, pre-op evaluation and timeout performed Peripheral Block Prep: ChloraPrep, skin prep agent completely dried prior to procedure, sterile gloves and mask used Patient monitoring: BP cuff, heart rate, continuous pulse ox and awake overnight monitor Patient sedation: general anesthesia Block type: [...] fractionated injection: yes Ultrasound Equipment Machine used: [employer] M7 sterile probe cover Probe did NOT contact body fluids/broken skin. Standard cleaning with recommended disinfectant at surgeon's request, for post-op pain management Tomy [employer]to SALGADO ANESTHESIA ORDERABLE S * POC US ANESTHESIA NERVE BLOCK TAP (09/22/2023 8:01 EDT) Narrative 09/22/2023 8:01 EDT This is a non-reportable exam. Tomy [employer] SALGADO IMG US POC ORDERABLE S * SURGICAL PATHOLOGY (09/22/2023 7:47 EDT) Note to Patient The following pathology results have been interpreted by your pathologist and may be available to you before your health provider has had the opportunity to review them. Please allow time for your provider to receive these results and explore management options, if applicable. 09/25/2023 9:19 [facility] Final Diagnosis A. PLACENTA, VAGINAL DELIVERY: [place] placenta, 305 grams (<10th percentile for 34 and 1/7 weeks' gestation): - Focal retromembranous hemorrhage. - Maternal vascular malperfusion: - Small for gestational age placenta (by weight if complete). - Accelerated villous maturation. - Increased perivillous fibrin deposition. - Mild to moderate patchy villous edema. - Hypocoiled three vessel umbilical cord. 09/25/2023 9:19 [facility] Attestation There was significant resident/fellow involvement in the diagnostic evaluation of this case. By the signature below, the attending physician certifies that they have personally conducted a gross and/or microscopic examination of the described specimens and rendered or confirmed the above diagnosis. 09/25/2023 9:19 [facility] at 0919 Clinical History PEC with SF, 34 week cs. 09/25/2023 9:19 EDT [facility] Gross Description A. Received fresh [...] there are no coils per 10 cm. Application Counselor sections are submitted as follows: BLOCK BROWN A1- membrane roll and cross-section of end of cord A2- membrane roll and cross-section of cord 5 cm from insertion site A3- full thickness section of placental disc adjacent to umbilical cord insertion site A4-A6- 3 full thickness sections of central 2/3 of placental disc ABEL ORO([facility]) 09/23/2023 9:12 09/25/2023 9:19 EDT [facility] Resident/Masood w: Nikki Sotelo MD PhD 09/25/2023 9:19 EDT [facility] Performing Lab [facility] 9:19 T [facility] Scanned Images 09/25/2023 9:19 T [facility] Tissue PLACENTAL STRUCTURE / Unknown 09/22/2023 7:47 EDT 09/22/2023 9:01 EDT Comment:Pre-op diagnosis: Breech Regina Thomson MD PATHOLOGY ORDERABL ES [facility] [address] [place] [address] * CA AN ELECTIVE ENDOTRACHEAL AIRWAY, CA ANESTHESIA NON-TIMED PLACEHOLDER (09/22/2023 7:26 EDT) Narrative Mariano Prescott - 09/22/2023 7:26 EDT Mariano Prescott ? 09/22/2023 ??7:42 Airway Date/Time: 09/22/2023 7:26 Urgency: elective Airway not difficult General Information and Staff Patient location during procedure: OR Anesthesiologist: Tomy Bustos DO Resident/ELECTROSTATIC PAINTER: Mariano Prescott Performed: resident/ELECTROSTATIC PAINTER/AA Performed by: Mariano Prescott Authorized by: Tomy Bustos DO ?? Indications and Patient Condition Indications for airway management: anesthesia Sedation level: GA Preoxygenated: yes Patient position: sniffing Ventilation assessment: 0 - not attempted Final Airway Details Final airway type: endotracheal airway Successful airway: ETT Cuffed: yes Successful intubation technique: video laryngoscopy Wilbur Facilitating devices/methods: intubating stylet Endotracheal tube insertion [...] Strep PCR Negative Negative 09/22/2023 14:16 EDT [facility] Swab POOLED SPECIMEN FROM VAGINAL INTROITUS AND RECTAL SWAB / Unknown Swab / Unknown 09/21/2023 15:51 EDT 09/21/2023 16:37 EDT Chasity Lee MD MICROBIOLOGY - GENER AL ORDERABLES [facility] [address] [place] [address] * HOLD SST (09/21/2023 12:16 EDT) Hold Hold 09/21/2023 13:31 EDT [facility] Blood VENOUS BLOOD / Unknown Venipuncture / Unknown 09/21/2023 12:16 EDT 09/21/2023 12:23 EDT Chasity Lee MD LAB INFO SERVICE AND SUPPORT & PHONE RESULT Performing Organization Address [facility]/ZIP Co de Phone Number [facility] [address] [place] [address] * HOLD BLUE TOP (09/21/2023 12:16 EDT) Hold Hold 09/21/2023 13:31 EDT [facility] Blood VENOUS BLOOD / Unknown Venipuncture / Unknown 09/21/2023 12:16 EDT 09/21/2023 12:25 EDT Chasity Lee MD LAB INFO SERVICE AND SUPPORT & PHONE RESULT Performing Organization Address [facility]/ZIP Co de Phone Number [facility] [address] [place] [address] * BLOOD BANK HOLD (09/21/2023 12:16 EDT) Hold BB Spec will exp at 23:59, 3 days from collect date 09/21/2023 12:47 EDT [facility] Blood VENOUS BLOOD / Unknown Venipuncture / Unknown 09/21/2023 12:16 EDT 09/21/2023 12:27 EDT Chasity Lee MD BLOOD BANK TESTS [facility] [address] [place] [address]. [place] [address] * NONSTRESS TEST (09/20/2023 23:12 EDT) Narrative [facility] POINT OF CARE - 09/20/2023 23:12 EDT Manuel Cardenas RN ? 09/20/2023 23:14 NST Report Baseline Heart Rate: ??130 Accelerations: ??present Movement: ??present ? Decelerations: ??absent Contractions: ??rare ?? Interpretation: ??reactive Placed on monitors from [id number] Co-sign Provider (Physician Name): MANUEL CARDENAS RN Sharon Bird OB GYNE ORDERABLES Performing Organization Address City/[facility]/ZIP Co de Phone Number [facility] POINT OF CARE * (ABNORMAL) FIBRINOGEN (09/19/2023 17:01 EDT) Only the most recent of3 resultswithin the time period is included. Fibrinogen 532(H) 171 - 384 mg/dL 09/19/2023 17:44 EDT [facility] Blood VENOUS BLOOD / Unknown Venipuncture / Unknown 09/19/2023 17:01 EDT 09/19/2023 17:22 EDT Sharon Bird HEMATOLOGY & PF4 ORD ERABLES [facility] [address] [place] [phone] * URIC ACID (09/19/2023 17:01 EDT) Only the most recent of3 resultswithin the time period is included. Uric Acid 3.1 2.2 - 7.7 mg/dL 09/19/2023 17:27 EDT [facility] Blood VENOUS BLOOD / Unknown Venipuncture / Unknown 09/19/2023 17:01 EDT 09/19/2023 17:11 EDT Sharon Bird CHEMISTRY & BLOOD GA S ORDERABLES Performing Organization Address City/[facility]/ZIP Co de Phone Number [facility] [address] [place], [place] [phone] * ALT (09/19/2023 17:01 EDT) Only the most recent of5 resultswithin the time period is included. ALT 20 <35 U/L 09/19/2023 17:27 EDT [facility] Blood VENOUS BLOOD / Unknown Venipuncture / Unknown 09/19/2023 17:01 EDT 09/19/2023 17:11 EDT Sharonlayla Snidersen CHEMISTRY & BLOOD GA S ORDERABLES Performing Organization Address [facility] Co de Phone Number [facility] [address] [place], [place] [phone] * AST (09/19/2023 17:01 EDT) Only the most recent of5 resultswithin the time period is included. AST 18 15 - 46 U/L 09/19/2023 17:27 EDT [facility] Blood VENOUS BLOOD / Unknown Venipuncture / Unknown 09/19/2023 17:01 EDT 09/19/2023 17:11 EDT Sharonjose cruz Bird CHEMISTRY & BLOOD GA S ORDERABLES Performing Organization Address City/[facility]/ZIP Co de Phone Number [facility] [address] [place] [address] * LDH (09/19/2023 17:01 EDT) Only the most recent of5 resultswithin the time period is included. LDH 151 120 - 246 U/L 09/19/2023 17:27 EDT [facility] Blood VENOUS BLOOD / Unknown Venipuncture / Unknown 09/19/2023 17:01 EDT 09/19/2023 17:11 EDT Sharonlayla Bird CHEMISTRY & BLOOD GA S ORDERABLES Performing Organization Address City/[facility]/ZIP Co de Phone Number [facility] [address] [place], [place] [phone] * (ABNORMAL) CREATININE (09/19/2023 17:01 EDT) Only the most recent of5 resultswithin the time period is included. Creatinine 0.37(L) 0.52 - 1.04 mg/dL 09/19/2023 17:27 EDT [facility] eGFR 139 >60 mL/min/1.73 m2 09/19/2023 17:27 EDT [facility] Blood VENOUS BLOOD / Unknown Venipuncture / Unknown 09/19/2023 17:01 EDT 09/19/2023 17:11 EDT Sharonlayla Snidersen CHEMISTRY & BLOOD GA S ORDERABLES Performing Organization Address [facility] Co de Phone Number [facility] [address] [place], [place] [phone] * (ABNORMAL) POCT GLUCOSE, INTERFACED (09/11/2023 15:03 EDT) Only the most recent of2 resultswithin the time period is included. Glucose, POC 101(H) 70 - 100 mg/dL 09/11/2023 15:47 EDT [facility] HN LAB POC COMMENT (GLUCOSE) Test Performed by Nursing Services 09/11/2023 15:47 EDT [facility] Blood CAPILLARY BLOOD / Unknown 09/11/2023 15:03 EDT 09/11/2023 15:47 EDT Odilia Franks MD POINT OF CARE TEST O RDERABLES [facility] [address] [place], [place] [phone] * HOLTER MONITOR-24: PLACED IN CLINIC (09/11/2023 [...] Max heart rate was 133 bpm on Day :06:42 pm SVE(s): [place] was < 0.01 %, 2 total SVE(s) Patient recorded 7 event(s) during the monitoring period - sinus rhythm was present. Sharon Bird CARDIAC SERVICES ORD ERABLES * ECG REPORT - SCANNED (09/11/2023 13:45 EDT) 09/11/2023 13:4 5 EDT Scan 2 Licensed Final Expense Agents PROCEDURE/MINOR ANTONIO GICAL ORDERABLES * EKG 12-LEAD (09/10/2023 10:48 EDT) 09/10/2023 10:4 8 EDT Narrative [facility] E[facility] - 09/11/2023 13:32 EDT ? [facility] ? Test Date: ?2023-09-10 Pat Name: ? HASMUKH YOUNG ? Department: ?? B7 Maternity ? Room: ? B7M22 Gender: ? Female ? Commercial Decorator: ?? [id number] : ?1995 ? Requested By: GUSTAVO KUMAR Order Number: [id number] ? Ender MCLAUGHLIN: ?? RASHAWN HINKLE MD ? Measurements Intervals ?[place] ? Rate: ? 101 ?P: ?27 CA: ? 142 ?QRS: ?27 QRSD: ? 103 ?T: ?24 QT: ? 334 ? QTc: ?435 ? Interpretive Statements SINUS TACHYCARDIA ABNORMAL RHYTHM ECG Compared to ECG 04/30/2016 19:36:13 No significant changes I reviewed the tracing and have either agreed or edited the findings in this report. Electronically Signed On 09-11-2023 13:32:37 EDT by RASHAWN HINKLE MD. Procedure Note Rashawn Hinkle MD - 09/11/2023 [facility] Test Date: 2023-09-10 Pat Name: HASMUKH YOUNG Department: B7 Maternity Room: [facility] Gender: Female Commercial Decorator: [id number] : 1995 Requested By: GUSTAVO KUMAR Order Number: [id number] Reading MD: RASHAWN HINKLE MD Measurements Intervals [place] Rate: 101 P: 27 CA: 142 QRS: 27 QRSD: 103 T: 24 QT: 334 QTc: 435 Interpretive Statements SINUS TACHYCARDIA ABNORMAL RHYTHM ECG Compared to ECG 04/30/2016 19:36:13 No significant changes I reviewed the tracing and have either agreed or edited the findings inthis report. Electronically Signed On 09-11-2023 13:32:37 EDT by RASHAWN ROB. Sharon Bird CARDIAC ECG ORDERABL ES Performing Organization Address City/[facility]/ZIP Co de Phone Number [facility] * TSH (09/10/2023 7:29 EDT) TSH 3.60 0.47 - 4.68 mIU/L 09/10/2023 14:46 EDT [facility] Blood VENOUS BLOOD / Unknown Venipuncture / Unknown 09/10/2023 7:29 EDT 09/10/2023 7:39 EDT Narrative [facility] - 09/10/2023 14:46 EDT The results of this assay can be falsely lowered due to the consumption of Biotin. Sharon Bird CHEMISTRY & BLOOD GA S ORDERABLES Performing Organization Address City/[facility]/ZIP Co de Phone Number [facility] [address] [place] [address] * NT PRO BNP (09/10/2023 7:29 EDT) NT-pro BNP <20 <95 pg/mL 09/11/2023 18:51 EDT [facility] Comment: In the acute setting NT-proBNP values <300 pg/mL have a 98% NPV for excluding acute heart failure. In outpatient populations, NT-proBNP values <125 have a 99% NPV for excluding heart failure. Blood VENOUS BLOOD / Unknown Venipuncture / Unknown 09/10/2023 7:29 EDT 09/10/2023 7:39 EDT Sharon Bird CHEMISTRY & BLOOD GA S ORDERABLES Performing Organization Address City/[facility]/ZIP Co de Phone Number [facility] [address] [place] [address] * (ABNORMAL) MAGNESIUM (09/10/2023 7:29 EDT) Magnesium 1.6(L) 1.7 - 2.8 mg/dL 09/10/2023 8:10 EDT [facility] Blood VENOUS BLOOD / Unknown Venipuncture / Unknown 09/10/2023 7:29 EDT 09/10/2023 7:39 EDT Sharonlayla Snidersen CHEMISTRY & BLOOD GA S ORDERABLES Performing Organization Address [facility] Co de Phone Number [facility] [address] [place], [place] [phone] * CALCIUM (09/10/2023 7:29 EDT) Calcium 9.0 8.5 - 10.5 mg/dL 09/10/2023 8:10 EDT [facility] Blood VENOUS BLOOD / Unknown Venipuncture / Unknown 09/10/2023 7:29 EDT 09/10/2023 7:39 EDT Sharonlayla Snidersen CHEMISTRY & BLOOD GA S ORDERABLES Performing Organization Address [facility]/ZIP Co de Phone Number [facility] [address] [place] [address] * (ABNORMAL) ELECTROLYTES (09/10/2023 7:29 EDT) Sodium 133(L) 136 - 145 mmol/L 09/10/2023 8:10 EDT [facility] Potassium 4.3 3.5 - 5.0 mmol/L 09/10/2023 8:10 EDT [facility] Chloride 105 96 - 110 mmol/L 09/10/2023 8:10 EDT [facility] CO2 Total 19(L) 22 - 32 mmol/L 09/10/2023 8:10 EDT [facility] Anion Gap 9 5 - 14 mmol/L 09/10/2023 8:10 EDT [facility] Blood VENOUS BLOOD / Unknown Venipuncture / Unknown 09/10/2023 7:29 EDT 09/10/2023 7:39 EDT Sharon Bird CHEMISTRY & BLOOD GA S ORDERABLES Performing Organization Address [facility] Co de Phone Number [facility] [address] [place] [address] * (ABNORMAL) PROTEIN, TOTAL, 24 HR, URINE (09/05/2023 21:05 EDT) Total Protein, Urine 10 See Note mg/dL 09/06/2023 8:00 EDT [facility] Comment: NOTE: Reference range not established Total Protein, Urine 24 hr 500(H) <150 mg/24hrs 09/06/2023 8:00 EDT [facility] Urine Volume 5,000 mL 09/06/2023 8:00 EDT [facility] Urine Collection Period 24.0 Hours 09/06/2023 8:00 EDT [facility] Urine 24 HOUR URINE SPECIMEN / Unknown Urine Collect / Unknown 09/05/2023 21:05 EDT 09/06/2023 7:16 EDT Cely Valencia MD URINALYSIS ORDERABLE S Performing Organization Address City/[facility]/ZIP Co de Phone Number [facility] [address] [place] [address] * POC LD US ROUTINE 2ND TRIMESTER [...] (oz) ?? 9 oz EFW by: ?Hadlock ([id number]) Extended Salesforce Specialist 6.4 mm CM 9.1 mm ?? 91% [...] view: not visualized 3-vessel view: not visualized [id number] view: not visualized Heart / Thorax Aortic [...] Limited by advanced gestational age Impression ========= [id number] Obstetrical ultrasound with and maternal evaluation This [...] EFW (oz) 9 oz EFW by: Hadlock ([id number]) Extended Salesforce Specialist 6.4 mm CM 9.1 mm 91% Nicolaides [...] view: not visualized 3-vessel view: not visualized [id number] view: not visualized Heart / Thorax Aortic [...] Limited by advanced gestational age Impression ========= [id number] Obstetrical ultrasound with and maternal evaluation This [...] wks DATE OF SERVICE: 09/05/2023 Sharon Bird [facility] LD ORDERABLES * (ABNORMAL) PRE-ECLAMPSIA PROTEIN/CREATININE RATIO, URINE (09/04/2023 16:55 EDT) Total Protein, Urine 49 See Note mg/dL 09/04/2023 17:26 EDT [facility] Comment:Reference range not established. Creatinine, Urine 73.7 See Note mg/dL 09/04/2023 17:26 EDT [facility] Comment:Reference range not established. Pre-Eclampsia Protein/Creat inine Ratio, Urine 0.66(H) <0.30 mg/mg Creatinine 09/04/2023 17:26 EDT [facility] Urine URINE / Unknown Urine Collect / Unknown 09/04/2023 16:55 EDT 09/04/2023 17:03 EDT Sharonlayla Hoffmanmussen URINALYSIS ORDERABLE S Performing Organization Address [facility]/ZIP Co de Phone Number [facility] [address], [place] [phone] * PATIENT RE-TYPE (09/04/2023 16:55 EDT) ABO A 09/04/2023 17:28 EDT [facility] Rh Factor Positive 09/04/2023 17:28 EDT [facility] Blood VENOUS BLOOD / Unknown Venipuncture / Unknown 09/04/2023 16:55 EDT 09/04/2023 17:15 EDT Sharonlayla Bird BLOOD BANK TESTS Performing Organization Address [facility] Co de Phone Number [facility] [address] [place] [phone] * (ABNORMAL) UREA NITROGEN, URINE 24HR (08/14/2023 4:33 EDT) Urea Nitrogen, Urine 317 See Note mg/dL 08/15/2023 22:00 EDT [facility] Comment: NOTE: Reference range not established Urea Nitrogen, Urine 24 hr 34(H) 12 - 20 g/24hrs 08/15/2023 22:00 EDT [facility] Urine Volume 10,700 mL 08/15/2023 22:00 EDT [facility] Urine Collection Period 24.0 Hours 08/15/2023 22:00 EDT [facility] Urine 24 HOUR URINE SPECIMEN / Unknown 08/14/2023 4:33 EDT 08/15/2023 21:41 EDT Provider Outr Resulting Lab URINALYSIS O RDERABLES Performing Organization Address City/[facility]/ZIP Co de Phone Number [facility] [address] [place] [address] * (ABNORMAL) CHLORIDE, URINE 24HR (08/14/2023 4:33 EDT) Chloride, Urine 77 See Note mmol/L 08/15/2023 21:55 EDT [facility] Comment: NOTE: Reference range not established Chloride, Urine 24 hr 824(H) 110 - 250 mmol/24hrs 08/15/2023 21:55 EDT [facility] Urine Volume 10,700 mL 08/15/2023 21:55 EDT [facility] Urine Collection Period 24.0 Hours 08/15/2023 21:55 EDT [facility] Urine 24 HOUR URINE SPECIMEN / Unknown 08/14/2023 4:33 EDT 08/15/2023 21:41 EDT Provider Outr Resulting Lab URINALYSIS O RDERABLES Performing Organization Address [facility] de Phone Number [facility] [address] [place], [place] [phone] * OSMOLALITY, URINE (08/14/2023 4:33 EDT) Pathologist [facility] Osmolality, Urine 298 150 - 1,150 mOsm/kg 08/15/2023 21:55 EDT [facility] Urine URINE / Unknown 08/14/2023 4 :33 EDT 08/15/2023 21:41 EDT Provider Outr Resulting Lab URINALYSIS O RDERABLES Performing Organization Address City/[facility] de Phone Number [facility] [address], [place] [phone] * HEPATITIS C AB W REFLEX TO HCV RNA BY PCR (04/20/2023 10:45 EST) Pathologist [facility] Hep C Antibody Negative Negative 04/20/2023 18:39 EST [facility] Blood VENOUS BLOOD / Unknown 04/20/2023 10:45 EST 04/20/2023 16:52 EST Provider Outr Resulting Lab CHEMISTRY & BLOOD GAS ORDERABLES [facility] [address] [place] [address] from Last 3 Months or Most Recently Relevant to Health Maintenance Advance Directives For more information, please contact: [phone] * Full Code (Latest Code Status on File) Date Activated Date Inactivated Comments 09/04/2023 16:01 09/25/2023 16:10 Question Answer Comments When the patient has NO PULSE: Full Code / CPR Who Made the Decision? Default/Not Discussed Care Teams Net Developer Programmer Relationship Specialty Start Date End Date Jeniffer Angulo, SUELLEN [address] [place] [address] PCP - General 03/27/17
--- OUTSIDE RECORDS SUMMARY | 2023-11-03 15:56 | XMS_ITS | Encounter Summary ---
[place] [address] Care Team Providers Care Chemical Laboratory Technician Name Role Phone Unknown Primary Care Provider Unavailabl e Reason for Referral * Occupational Therapy (Routine) - Closed Specialty Diagnoses / Procedures Referred By Contluz maria martinez Referred To Contact Occupational Therapy Diagnoses Post concussive syndrome Damien Rivera MINERAL TECHNOLOGIST [facility] [place] [address] [facility] [place] [address] Referral ID Status Reason Start Date Expiration Date V isits Requested Visits Authorized [id number] Closed Evaluate and Treat 05/06/2016 05/06/2017 1 1 * Psychiatric (Routine) - Closed Specialty Diagnoses / Procedures Referred By Contac t Referred To Contact Psychiatry Diagnoses Post concussive syndrome Damien Rivera [facility] [address] [facility] [address] [place] [address] Referral ID Status Reason Start Date Expiration Date V isits Requested Visits Authorized [id number] Closed Consult & Test 05/06/2016 05/06/2017 1 1 Encounter Details Date Type Department Care Team (Late st Contact Info) Description 05/06/2016 Orders Only Psychiatry [place] [phone] Damien Rivera APRN [facility] [place] [address] Post concussive syndrome Social History Tobacco Use [...] as of this encounter Miscellaneous Notes * Addendum Note - Damien Rivera APRN - 05/06/2016 5:37 AM ESTAddended by: DAMIEN RIVERA on: 05/06/2016 05:37 AM Modules accepted: Orders documented in this encounter Plan of Treatment Scheduled Referrals Name Type Priority Associated Diagnoses Order Schedule Referral to Neuropsychology Outpatient Referral Routine Post concussive syndrome Ordered: 05/06/2016 Referral to Occupational Therapy Outpatient Referral Routine Post concussive syndrome Ordered: 05/06/2016 documented as of this encounter Visit Diagnoses Diagnosis Post concussive syndrome Postconcussion syndrome documented in this encounter Care Teams Chemical Laboratory Technician Relationship Specialty Start Date End Date Unknown None PCP - General 05/03/16 05/06/16 documented as of this encounter
--- OUTSIDE RECORDS SUMMARY | 2023-11-03 15:56 | XMS_ITS | Encounter Summary ---
[place] [address] Care Team Providers Care Cam Specialist Name Role Phone Unknown Primary Care Provider Unavailabl e Reason for Visit * Reason Onset Date Comments Prior Authorization 05/05/2016 [employer] 05/02 PSY IPI Encounter Details Date Type Department Care Team (Late st Contact Info) Description 05/05/2016 [place] [phone] Andra Carballo MD [facility] [address] [place] [address] Prior Authorization ([employer] 05/02/16 PSY IPI) Social History Tobacco Use Types Packs/Day Years [...] encounter Miscellaneous Notes * Telephone Encounter - DeweyOrly - 05/05/2016 12:27 PM EST Patient has [employer] With [employer] [place]. MH is carved out to Cy . CARO Wei [phone] will contact [facility] Rimma Martines for clinical. Currently using A# [id number] which was used for 05/01/16- 05/01/16 admit. CM will make determination if a new A# is needed documented in this encounter Plan of Treatment Not on file documented as of this encounter Visit Diagnoses Not on filedocumented in this encounter Care Teams Cam Specialist Relationship Specialty Start Date End Date Unknown None PCP - General 05/03/16 05/06/16 documented as of this encounter
--- OUTSIDE RECORDS SUMMARY | 2023-11-03 15:56 | XMS_ITS | Encounter Summary ---
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 the appointment if she decided not to go. Medications: ??? chlorproMAZINE 50 mg Oral Nightly ### ??? propranolol 10 mg Oral TID ### PRN: chlorproMAZINE, gabapentin, melatonin, ibuprofen, acetaminophen, LORazepam Objective: Temp: [36.3 ??C (97.3 ??F)] Heart Rate: [95-133] Resp: [19] BP: (131-132)/(85-87) SpO2: [100 %] Heart Rate from SPO2: -- Mental status exam: Appearance: Seen in team room. Pt dressed casually, makeup done and hair appears clean. wearing sunglasses. Behavior: No psychomotor agitation or retardation, perhaps mildly decreased eye contact although difficult to tell due to sunglasses. Calm, cooperative, polite and appropriate in interview. Speech: Voice no longer sounds childish and high pitched. Normal rate, rhythm, and pitch. No echolalia or staccato Language: Coherent, no profanity, no obvious deficits or difficulties expressing self. Articulate. Mood: Every morning I wake up and I'm anxious Affect: Mildly constricted and anxious but less so than yesterday, and smiled slightly when talkingabout her dog Thought Process: Linear and logical Thought Content: SI: denies HI: none AVH: none No evidence of delusions, obsessions, grandiosity, or ideas of reference. No evidence of respondingto internal stimuli Orientation: Alert and oriented to person, place, date, and situation. Cognition: Grossly intact Insight: Fair Judgement: Fair Labs reviewed and notable for: No new labs Diagnostic Tests and Imaging: none new Assessment & Plan: Hasmukh Young is a 20 y.o. woman with history of depression and anxiety, admitted on 05/02/2016 for worsening anxiety, panic attacks, and agoraphobia, which started after a concussion on 04/01/16. Hasmukh also does have a self- reported history of jacqui, though she has never been diagnosed as bipolar bya psychiatric provider. She does not seem to be manic. Hasmukh appeared quite regressed when seen last week and during first few days of admission, even to the point of losing control of her bladder after she was encouraged to attend group. Feel that she may have personality traits that were greatlyexacerbated after mild TBI. Feel that diagnosis of post concussive syndrome is still appropriate given her somatic symptoms and motor changes, and that the post consussive syndrome accounts for most of her anxiety, but still not sufficient to explain her overall presentation. 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 Propranolol and thorazine have been helpful for anxiety and sleep. She no longer appears so regressed. In the past few days she has been articulate, more appropriately dressed, and without the childish voice, mannerisms and even body posture that she did previously. Hasmukh was again thoughtful but firm in describing her thoughts regarding therapy -- she recognizes that the treatment for borderline presonality disorder is therapy but also acknowledges that she will probably not follow up with therapy. She agreed to an appointment with [facility] and will cancel the appointment if she decides not to go. She is appreciative of the medications for anxiety which she feels have been quite beneficial. Hasmukh has been consistently denying SI/HI and depression and anxiety is greatly improved to the point that she has been able to attend groups. She was future oriented this morning and was looking forward to seeing her dog and discussing going back to work. Anticipating discharge later this afternoonto her mom's house. 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 -continue propranolol 10mg TID for anxiety -continue chlorpromazine 50mg QHS for sleep and anxiety -continue chlorpromazine 25mg BID prn anxiety -lorazepam 1mg BID PRN anxiety, discharge on lorazepam taper -gabapentin 200mg BID PRN anxiety #Routine -gluten-free, lactose-free, vegetarian diet -no DVT prophylaxis, pt fully ambulatory -Activity: escort to groups -Dispo: discharge today Regina Burton MD PGY-1, Psychiatry #[id number] Associated attestation - Gaviota Aguilar MD - 05/08/2016 2:38 PM EST I have seen the patient and reviewed the resident's above history and I agree with the details as written.?The assessment and plan were formulated in discussion with me and I agree with them as documented. ?? Pertinent History: Pt was feeling anxious but took medications and finds it helpful. Plan for back home is to see dog and take her for a walk. everything else will fall into place after that. Home health nurse is setting up appts for neurology. She doesn't want to have appts for [facility] 70% chancethat I won't show up, but I will let them know if I won't come. Feels neutral about going back to mom's. ?? Pertinent Exam: Sunglasses. Casually dressed. Speech appropriate. Mood anxious and affect euthymic. Denies SI. I/J: improving. ?? Major issues addressed: Unspecified personality disorder; Post concussive syndrome ?? Plan: - d/c today - c/w medications ?? Greater than 30 minutes was spent coordinating discharge for this patient and included [id number] and exam, explanation of after visit instructions and medications to the patient and necessary caregivers, documentation, and prescription management. * Xochitl Chandler MSW - 05/07/2016 5:29 PM EST [facility] SOCIAL WORK CONTINUING [employer]WR[employer] APPRENTICE CCM met with patient in her room. Her restorer paper and prints for wc was present. CCM provided pt with information about the role of the [facility] and the Social work CCM. Pt's TBI multidisciplinary out pt appointment was canceled today by her providers. [facility] will work with staff of Neurology and Psychiatry to Re schedule this eval. Pt was given [facility] contact information. CCM will follow as out patient and work with her TBI rehab team. * Regina Burton MD - 05/07/2016 4:23 PM EST [facility] Progress Note Patient Name: Hasmukh Young Admit Date: 05/02/2016 Patient ID: Hasmukh Young is a 20 y.o. who was admitted for increased anxiety, panic attacks and inability to function after mild TBI one month ago. Primary working diagnosis: Unspecified personality traits in the setting of post concussive syndrome Interval History / Subjective: -Slept 9+ hrs, anxiety 7-8/10, no depression, no SI/HI -got thorazine yesterday, found helpful for sleep though given too early in evening -was given information on borderline personality disorder yesterday. Hasmukh noted that she identified with a lot of the character traits described, but not all -- in particular she notes that she prefers to be alone, and doesn't think of herself as dependent and needing to be around others all the time. Hasmukh resonated with the aspect of tumultuous relationships, noted that she feels her relationships are always set up for failure and that she tends to go through a cycle with people where she abruptly decides ok I'm through with you and ends relationship -unhappy that BPD not treatable with meds because I don't believe in therapy at all. notes that you guys can give us all the tools in the world and it's up to us to use them. She is not interested in therapy even if it could help her, notes that she knows herself and will simply not show up for appointments. She will accept meds for her anxiety but with regard to maldaptive coping mechanisms / relationships, this is the way I am and she is not interested in changing. -woke up feeling anxious this morning, is anxious about going back home. Is angry with her mom (didnot specify why) and worried that if she goes home she'll just self-isolate in her room to avoid -still has headache, unchanged -propranolol helpful for anxiety and palpitations -of note she has been using her PRN lorazepam 1mg as much as it is available Medications: ??? chlorproMAZINE 50 mg Oral Nightly ### ??? propranolol 10 mg Oral TID ### PRN: chlorproMAZINE, gabapentin, melatonin, ibuprofen, acetaminophen, LORazepam Objective: Temp: [36.3 ??C (97.3 ??F)] Heart Rate: [105-133] Resp: [19] BP: (122-132)/(80-87) SpO2: [97 %-100 %] Heart Rate from SPO2: -- Mental status exam: Appearance: Seen in team room. Pt dressed casually in sweater and short shorts, makeup done, hair appears clean. Still wearing sunglasses. Behavior: No psychomotor agitation or retardation, decreased eye contact. Speech: Voice no longer sounds childish and high pitched. Normal rate, rhythm, pitch Language: Coherent, no profanity, no obvious deficits or difficulties expressing self. Mood: I woke up really anxious this morning Affect: Congruent, constricted, anxious Thought Process: Appears intact, wnl Thought Content: SI: denies HI: none AVH: none No evidence of delusions, obsessions, grandiosity, or ideas of reference. Orientation: Alert and oriented to person, place, date, and situation. Cognition: Grossly intact Insight: Fair to limited Judgement: Fair to limited Labs reviewed and notable for: No new labs Diagnostic Tests and Imaging: none new Assessment & Plan: Hasmukh Young is a 20 y.o. woman with history of depression and anxiety, admitted on 05/02/2016 for worsening anxiety, panic attacks, and agoraphobia, which started after a concussion on 04/01/16. Hasmukh also does have a self- reported history of jacqui, though she has never been diagnosed as bipolar bya psychiatric provider. She does not seem to be manic. Hasmukh appeared quite regressed when seen last week and during first few days of admission, even to the point of losing control of her bladder after she was encouraged to attend group. Feel that she may have personality traits that were greatlyexacerbated after mild TBI with associated ?postconcussive syndrome and disinhibition. Feel that diagnosis of post concussive syndrome is still appropriate given her somatic symptoms and motor changes, but not sufficient to explain her overall presentation. Working diagnosis is borderline vs unspecified personality traits exacerbated in the context of post concussive syndrome. Propranolol and thorazine have been helpful for anxiety and sleep. She no longer appears so regressed and today did not have the childish voice, mannerisms, even body posture that she did previously.Hasmukh was thoughtful and clear today in describing her preferences regarding therapy -- she was able to identify that the medications can help her with her anxiety, but that therapy is what will help her addressing longstanding patterns of behavior. Nonetheless, she felt that she was not interested in therapy and would not follow up -- unable to give a real reason other than that she doesn't believe in therapy and feels that this is who she is. Nonetheless will proceed with therapy referrals in case she changes her mind. She has been denying SI/HI and depression and anxiety is greatly improved to the point that she has been able to attend groups. Feel that she will be safe for discharge tomorrow and Hasmukh was amenable to this. #Unspecified personality traits in the setting of post-concussive syndrome -continue propranolol 10mg TID for anxiety -continue chlorpromazine 50mg QHS for sleep and anxiety -continue chlorpromazine 25mg BID prn anxiety -lorazepam 1mg BID PRN anxiety -gabapentin 200mg BID PRN anxiety #Routine -gluten-free, lactose-free, vegetarian diet -no DVT prophylaxis, pt fully ambulatory -Activity: escort to groups Regina Burton MD PGY-1, Psychiatry #[id number] Associated attestation - Gaviota Aguilar MD - 05/07/2016 9:46 PM EST I have seen the patient and reviewed the resident's above history and I agree with the details as written.?The assessment and plan were formulated in discussion with me and I agree with them as documented. ?? Pertinent History: Slept last night. Still CAMPBELL this morning. Discuss diagnoses. Pt is concerned about going home because she worries about reverting to previous behaviors. States that when she returnshome she will not go to therapy and will not use tools from groups. I just don't like people. ?? Pertinent Exam: Wearing sunglasses. Dressed and groomed. Mood okay affect euthymic. Denies SI ?? Major issues addressed: Unspecified Personality Disorder. Improved sxs since starting Thorazine ?? Plan: - c/w medications - d/c tomorrow ?? I certify that the patient requires: [X] inpatient care for psychiatric treatment, that could be reasonably expected to improve the patient's condition and/or diagnostic study. * Nuris Louis, B[employer]ATION AGENT - 05/07/2016 11:42 AM EST OFFICE OF CARE MANAGEMENT PSYCHOSOCIAL ASSESSMENT Present at Interview: Patient Date: May 07, 2016 1. Referral request and/or presenting problem(s): Patient is a 20 year old SWF, who presents at [facility] to address her increasing anxiety, ongoing panic attacks, recent TBI and overall inability to cope/function safely and effectively in her community. Please refer to admit note for details. 2. Family Constellation, Pertinent History: Patient is an only child born in family of origin. Parents when she was 17 years old. Mother age 45 and Father age 48 live in [place]. Childhood was described as difficult. Parents were described as not abusive, just not good parents. Extended family was available and involved. Patient left home at age 15 and moved in with a friend. Patient thenwent on to move to [place]. Patient has been in [place] for the past 5 years, returning to [place] in 09/12. Patient is currently living with her Mother and has sporadic contact with her Father. Patient has never , no children, not currently dating anyone. 3. Patient's understanding/adjustment to illness, coping skills & weaknesses: Patient identified coping skills as be with my dog Krystyna, used to like to listen to music, watch TV. Strengths identified as tend to be positive, over protective of people I care for, do anything for them, hard worker, reliable and dependable. Weaknesses identified as insecure about myself, lots of things aboutme, don't like my nose, my weight, my overall appearance. 4. Assessment Pt's medical needs: () Understands Pt's medical needs () Understands Pt's emotional needs () Can provide support of pt. (x) Family coping: Comments: Patient does not identify any family support at this time. 5. Current social supports including spiritual support: no one, not active in worship or community. 6. Current living situation concerns: (x) Yes () No Comments: Patient would like to return to [place] as soon as possible. 7.Chemical abuse or other abuse in patient & family: (x) Yes () No Comments: History of heavy substance use as teenager as well as during manic episodes. None currently. 8. Pt/Family mental health concerns: (x) Yes () No Comments: Patient and Mother are very concerned about events leading up to hospitalization. 9. Financial concerns: () Yes (x) No Comments: Patient is employed, also has savings to use. 10. Legal concerns: () Yes (x) No Comments: 11. Specialized agency involvement: (x) Mental Health Services () Protective Services () Home Health Other: Needs referral in her community. 12. Advance Directives: () Yes (x) No 13. 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 Stressors: (x) Limited Support () Obtaining Medication () Financial Concerns () Marital Conflict () Family Conflict () Illness of Family Member () Insurance () Substance Abuse () School Issues () Extensive Home Care Need () Employment Issues () Transportation (x) Inadequate Coping Skills () Loss/ () Frequent Hospitalizations () Sexuality () Change in Home Environment () Socialization Issues (x) Concerns about Diagnosis (x) Mental health Issues 16. Assessment: Pleasant, engageable female, appearing much improved from day of admission. Patientactively participated in interview process and was able to answer all questions asked. Patient denies any current anxiety and states that she is more concerned about her ongoing neurological symptoms. Patient denies any current self harm urges and denies any current intent or plan. Patient is hoping to be discharged in order to follow up with neurology. Patient would benefit from increased professional support in her community. 17. Plan/Goals: Specify: Psychosocial Assessment (x) Crisis Intervention/Counseling: Assist with discharge planning () Conflict Resolution: (x) Education/Support of Treatment Plan: () Legal Ethical Issues: (x) Community/Financial Resource Referral: () Advance Directive: () Other: Plan discussed with patient/family (x) Yes () No Plan agreed upon by patient/family (x) Yes () No * Brittani George MHT - 05/07/2016 11:25 AM EST Inpatient Daily Group Note Group: Goals Group Reviewed principles of behavioral activation, discussed the importance of recognizing avoidance andhow to work towards having behavior be goal focused not mood focused. Reviewed expectations of group behavior, validated pts rights to express complaints/discontent withtheir treatment though clarified that this needed to happen with the treatment team or with the nurse. Clarifed that any negative, disruptive behavior in groups would result in pts being asked to return to the unit. Attendance: Present Behavior: Relevant Mood: Calm Notes: Pt states she is hoping to keep her scheduled neurology appt today. Will also try to attend groups. RODERICK ALATORRE 05/07/2016 Inpatient Daily Group Note Group: Change Group Focus of discussion was on the process of change. Reviewed: how change is a process not an event, that you can???t measure progress by how you feel and that you first have to change your behaviors before your emotions catch up. Discussed how patterns of behavior develop and how challenging they areto overcome. Encouraged pts to be active in practicing coping strategies to challenge their currentpatterns of behavior. Discussed the concept of relapse being part of the recovery process and ways to use information from relapse to change behaviors moving forward. Attendance: Present Behavior: Quiet and Attentive Therapeutic Work Observed: Moderate Mood: Flat Notes: Pt was quiet though attentive. Significant progress as evidenced by her ability to tolerate staying for the whole group. RODERICK ALATORRE 05/07/2016 * Mariana Izquierdo MS - 05/06/2016 11:12 AM EST Inpatient Daily Group Note Group: Goals Group Reviewed principles of behavioral activation, discussed the importance of recognizing avoidance andhow to work towards having behavior be goal focused not mood focused. Attendance: Present Behavior: Relevant Mood: Calm Notes: Pt able to sit calmly for entire group. States her goal is to attend one more group than I did yesterday. Met with pt briefly after group to discuss the plan to slowly increase her group participation. Pt to attend workshop today with the plan to begin adding one treatment group per day after that. Pt agreeable to this plan. BRITTANI GEORGE, [facility] 05/06/2016 Patient attended the following activities: __x__Walk __x__Workshop ____Pet visit Additional pertinent information: patient did well on walk socialized appropriately with others anddid not exhibit any overt signs of anxiety. * Gaviota Aguilar MD - 05/06/2016 8:17 AM EST Psychiatry Inpatient - Progress Note 05/06/2016 ID: Hasmukh Young is a 20 y.o. female admitted on 05/02/2016 for sudden change in personality after unwitnessed head injury. Hospital day 4. Current Working Primary Diagnosis: Unspecified personality disorder Pertinent medical issues being addressed: symptoms of unwitnessed head injury Interval History: (1,1,4) - team met with mom and aunt yesterday. Collateral information suggestive of underlying personality/interpersonal deficit component. - poor sleep: 5-6 hours but up frequently - Depression = 0, Anxiety = 6; denies SI/HI - met with pt in her room today. She was pleasant and cooperative. We discussed the possibility of an underlying personality disorder that may have been exacerbated after the head injury. Pt thought this was a definite possibility and we offered her some information on borderline personality disorder, which pt appreciated. - c/o constant headache (and long h/o headaches), poor sleep, mood lability, nausea. Willing to trya low dose of thorazine for her constellation of sxs. Review of Systems: (0,1,2) CONST Denies fever or chills; headache since head injury; light sensitivity CV RESP Denies SOB, cough GI Nausea, lack of appetite NEURO headache PSYCH See above. Physical Exam: (1,6,9) Vitals (24hr Range): Temp: [36.9 ??C (98.4 ??F)] Resp: [16] Heart Rate: [68-96] BP: (107-132)/(65-92) SpO2: [100 %] Patient Vitals for the past 168 hrs: Weight 05/02/16 1908 77 kg (169 lb 12.1 oz) Musculoskeletal System: normal gait and balance, ambulates independently, no atrophy and no abnormal movements Mental Status Exam: Ambulates independently. No tics or tremors noted. Age appropriate, casually dressed, good eye contact. Calm and cooperative. Attentive to the interview. Relates well. Speech reg r/r/prosody. No odd speech patterns today. Mood the same, but trying to work harder and affect is brighter and mood congruent. Thoughts are l/l/gd and associations are intact. Denies SI/HI. Denies AH/VH or paranoia. Language without echolalia or clanging. Memory grossly intact. Alert and oriented x 4. I/J: fair Current Medications: Scheduled: ??? propranolol 10 mg Oral TID ??? QUEtiapine 100 mg Oral Nightly PRN: gabapentin, QUEtiapine, melatonin, ibuprofen, acetaminophen, LORazepam Labs: Last 24 Hours: No results found for this or any previous visit (from the past 24 hour(s)). Psychiatry Labs: Preg: No results found for: HCGQUAL, HCGQUANT Heme: No results found for: WBC, HGB, HCT, PLATELET, MCV, NEUTROABS No results found for: HA1C, SEDRATE Chem: No results found for: NA, K, CL, CO2, BUN, GLUCOSE, GLUCFASTING No results found for: CALCIUM, MAGNESIUM, PHOS LFTs: No results found for: ALT, AST, GGT, ALKPHOS, BILITOT, AMMONIA Coags: No results found for: PTT, PT, INR Thyroid: No results found for: TSH, C3BVVIS, TT4 Lipids and HgbA1C: No results found for: CHLPL, HDL, CHOLHDL, LDLCHOL, LDLDIRECT, TRIG No results found for: HA1C Vit Lvls: No results found for: DYGOUICA30, SFOLATE UA: No results found for: GLUCOSEU, KETONESUA, PROTEINUADIP, BLOODUADIP, LEUKOESTERUA, NITRATEUA, WBCUA (May not represent most recent UA results. See eD-H labs for more details.) Tox: No results found for: ETHANOL, ACTMNPHEN, SALICYLATE, LEAD No results found for: UDAUSCREEN Rx Lvls: No results found for: LITHIUM, CARBAMAZEPIN, VALPROATE, LAMOTRIGINE, CLOZAPINE Assessment: Hasmukh Young is a 20 y.o. female admitted on 05/02/2016 for sudden anxiety and personality changes s/p unwitnessed head injury. After collateral information was obtained, I am fairly convinced that there was an underlying personality disorder prior to the accident which is now flourishing as pt's filter is impaired from the injury. Pt was certainly open to this assessment and appeared relieved bythe diagnosis. Will continue to attend groups and work on coping skills while we work on medications and after care. We will try low doses of thorazine to help with sleep, headache, nausea and anxiety. Current Working Primary Diagnosis: Borderline personality disorder Clinical Global Impression Severity of illness: Considering your total clinical experience with this particular population, how mentally ill is the patient at this time? 4 = Moderately ill Global improvement: Rate total improvement compared to condition at admission, how much has she changed? Moderately Improved Plan: # Insomnia/Anxiety ?? D/c Seroquel ?? Start thorazine 50mg hs, Benadryl 25mg hs, Thorazine 25mg BID prn ?? Continue propranolol ?? Continue Gabapentin prn ?? Continue lorazepam prn ?? Continue melatonin prn # Headache ?? Thorazine as above ?? C/w IBFN/Tylenol prn # Nausea ?? Thorazine as above # Disposition: -After stabilization, patient expected to return home 05/12. Additional Information: Reasons for continued hospitalization: Warrants ongoing inpatient admission for safety, stabilization, and any other therapeutic intervention that could conceivably improve the patient's condition (including medication management, group psychotherapy, establishing adequate outpatient care). Patient Instruction/Education Provided: Patient provided verbal instructions during rounds regarding the treatment plan. I have reviewed and agree with the multidisciplinary treatment plan. I certify that the patient requires [x] inpatient care for psychiatric treatment that could reasonably be expected to improve the patient's condition and/or diagnostic study. Signed By: Gaviota Aguilar MD 05/06/2016 * Brittani George MHT - 05/05/2016 2:19 PM EST Inpatient Daily Group Note Group: Goals Group Reviewed principles of behavioral activation, discussed the importance of recognizing avoidance andhow to work towards having behavior be goal focused not mood focused. Attendance: Pt was lying in bed with the covers over her head. Asked pt to remove covers, get out of bed and join goals group. Pt became very tearful, nearly hysterical as evidenced by loud sobs withgasping breaths. States that u/sed is being mean to me. Pt did not show for group, report was that she went into the common area and collapsed and urniated on the floor. Pt not appropriate for groups today. Will encourage her to stay out of her room and work towards attending groups tomorrow. RODERICK ALATORRE 05/05/2016 * Regina Burton MD - 05/05/2016 12:55 PM EST [facility] Progress Note Patient Name: Hasmukh Young Admit Date: 05/02/2016 Patient ID: Hasmukh Young is a 20 y.o. who was admitted for increased anxiety, panic attacks and inability to function after mild TBI one month ago. Primary working diagnosis: Post concussive syndrome vs Acute stress reaction Interval History / Subjective: -slept 8 hours per nursing report although pt states that is not right and that she woke up every 5 minutes after midnight -pt does not think the meds are helping at all with her anxiety, that nothing has been helpful -notes that propranolol has helped slow her HR down, so has not been having palpitations, but that it doesn't take the anxiety away. Still some chest tightness -headaches unchanged -episode last night in which pt made superficial scratches on wrists with fork, was placed on q15 min checks and no-sharps trays -this morning, per nursing, after being encouraged to go to groups by therapist pt became upset andurinated on the floor -pt states I do not understand ... I have a head injury. Medications: ??? propranolol 10 mg Oral TID ### ??? QUEtiapine 100 mg Oral Nightly ### PRN: gabapentin, QUEtiapine, melatonin, ibuprofen, acetaminophen, LORazepam Objective: Temp: [36.9 ??C (98.4 ??F)] Heart Rate: [67-96] Resp: [16] BP: (107-114)/(65-75) SpO2: [100 %] Heart Rate from SPO2: [62 bpm] Mental status exam: Appearance: Sitting on floor in corner of room with large blanket draped around her shoulders, facing away. Hair appears greasy. not wearing sunglasses anymore Behavior: No psychomotor agitation or retardation. Decreased eye contact. Intermittently placing face down on knees and crying. Speech: High pitched and childish voice. No contractions, funny roman, staccato Language: Coherent, no profanity, no obvious deficits or difficulties expressing self. Mood: I do not understand Affect: Constricted, anxious Thought Process: Appears intact, wnl Thought Content: SI: denies HI: none AVH: none No evidence of delusions, obsessions, grandiosity, or ideas of reference. Orientation: Alert and oriented to person, place, date, and situation. Cognition: Grossly intact Insight: Limited Judgement: Poor Labs reviewed and notable for: No new labs Diagnostic Tests and Imaging: none new Assessment & Plan: Hasmukh Young is a 20 y.o. woman with history of depression and anxiety, admitted on 05/02/2016 for worsening anxiety, panic attacks, and agoraphobia, which started after a concussion on 04/01/16. Hasmukh also does have a self- reported history of jacqui, though she has never been diagnosed as bipolar bya psychiatric provider. She does not seem to be manic. Hasmukh did appear regressed on initial presentation to psychiatry last week, but seems to have regressed further in the past day or so, even to the point of losing control of her bladder after she was encouraged to attend group. Ddx remains post concussive syndrome vs acute stress reaction vs adjustment disorder. Hasmukh seems to be reverting to immature defense mechanisms /coping strategies in the context of extreme stress and anxiety. Will focus on addressing anxiety and insomnia. Will offer adult depends for urinary incontinence. Will continue to encourage behavioral activation. Holding off on further medication changes at this time. Staff have communicated about sending consistent message to Hasmukh that the expectation is thaterendira be out of her room and attending groups as much as possible. #Post concussive syndrome with anxiety -continue propranolol 10mg TID -continue seroquel 100mg QHS -lorazepam 1mg BID PRN anxiety -quetiapine 50mg BID PRN agitation -gabapentin 200mg BID PRN anxiety #Routine -gluten-free, lactose-free, vegetarian diet -no DVT prophylaxis, pt fully ambulatory -Activity: escort to groups Regina Burton MD PGY-1, Psychiatry #[id number] Associated attestation - Gaviota Aguilar MD - 05/05/2016 3:29 PM EST I have seen the patient and reviewed the resident's above history and I agree with the details as written.?The assessment and plan were formulated in discussion with me and I agree with them as documented. ?? Pertinent History: Patient spent the majority of the visit discussing her anger towards the therapist who wanted her to participate in groups today. I don't like her. When asked to participate in groups as they may be helpful in calming her anxiety she stated I know all the tricks. And discussed some rudimentary breathing exercises that had been taught to her. Again use the word tricks several times in order to describe anxiety reduction techniques. Patient states I just need a medicine that makes me want to get out more. We discussed the team based approach to her care and encouraged her to interact with other people. ?? Pertinent Exam: Sitting in a corner in her room with her knees up to her chest. Poor eye contact attimes. Loud, high pitched voice staccato in rhythm with diminished prosody. Mood lability. On grammar to her speech where she did not use contractions or the proper use of superlatives. Thoughts linear, logical, goal directed. Denies SI/HI. Insight/judgment is poor ?? Major issues addressed: Unspecified Personality Disorder. I am not sure what we are witnessing withthis patient. Her presentation is not consistent with anything in the spectrum of postconcussive symptoms. Typically postconcussive symptoms include difficulties with memory, attention, concentration, mood lability, fatigue, and personality changes (for instance becoming more irritable/snappy, moredepressed and withdrawn, or in the case of frontal lobe injuries more impulsive). What we see in presentation and on mental status exam today is more in line with a personality disorder on the severeend of the spectrum. However, she doesn't meet criteria for any particular personality disorder and, if we are to believe the history given by mom, the symptoms occurred abruptly 30 days ago. I am not confident about this and would like more collateral information. ?? Plan: -Obtain collateral information from his many sources as possible, employer, aunt, some people further removed from the home situation -Encourage participation in behavioral activation therapy -Patient may require a behavioral plan if she continues to engage in behaviors that attempt to divide the treatment team -Could increase gabapentin or add a low dose of tricyclic antidepressant for anxiety/mood symptoms.The tricyclic may also help with headaches and light/sound sensitivity. Would need to be mindful that patient's impulsive behaviors could lead to overdoses. ?? I certify that the patient requires: [X] inpatient care for psychiatric treatment, that could be reasonably expected to improve the patient's condition and/or diagnostic study. * Jes Zepeda RN - 05/05/2016 7:20 AM EST Patient on 15 minute checks all night. No attempt at self harm during the night. * Daria Carballo MD - 05/04/2016 12:47 PM EST Patient Name: Hasmukh Young Patient Age: 20 y.o. Birthdate: 1995 Admit date: 05/02/2016 Attending Physician: Daria Carballo MD Psychiatry Inpatient - Progress Note 05/04/2016 ID: Hasmukh Young is a 20 y.o. female admitted on 05/02/2016 for anxiety and change in behavior s/p concussion. Neurology work up completed. Hospital day 2. Current Working Primary Diagnosis: acute stress reaction vs. Post concussive syndrome Pertinent medical issues being addressed: none Interval History: (1,1,4) Narrative: Per nursing, slept 7 hours. Less crying and wailing than yesterday. Anxiety 09/06. No SI. Hasmukh appears slightly calmer today (not lying in position crying), but still in bed distressed. Did sleep better last night on higher dose of Seroquel which helped. Says she is fearful and just scared of everything. Only feels safe if she is in her room with the door open. Only eats when her mom and aunt visit. Doesn't feel depressed. Not attending groups. Would like to increase propranolol so that her heart wouldn't beat as fast when she is anxious. No AVH. Denies taking any drugs recently. Quality: scared, fearful, anxious Severity: severe Timing: daily Assoc. Signs and symptoms: Sleep: slept better last night Appetite: okay Energy: low Modifying Factors: Effect of Medications: helping Effect of groups: not attending Other: Duration: since concussion Context: may have had recent manic episode Review of Systems: (0,1,2) CONST Heart beating fast, no malaise CV Chest tight when heart beats fast RESP No SOB GI NEURO Not dizzy. headaches PSYCH See above. Physical Exam: (1,6,9) Vitals (24hr Range): Temp: [36.7 ??C (98.1 ??F)] Resp: [16] Heart Rate: [77-109] BP: (104-114)/(69-74) SpO2: [99 %] Patient Vitals for the past 168 hrs: Weight 05/02/16 1908 77 kg (169 lb 12.1 oz) Musculoskeletal System: normal gait and balance, ambulates independently, no atrophy and no abnormal movements Mental Status Exam: ?? Appearance: wearing hospital gown, lying in bed, in distress ?? Behavior: distressed, ?? Speech: broken speech ?? Language: normal ?? Mood: scared ?? Affect: anxious ?? Thought Process: mostly linear ?? Associations: normal ?? Thought Content: no SI or HI ?? Perception: no AH or VH ?? Orientation: AO x3 ?? Attention/Concentration: low ?? Cognition: intact ?? Memory: intact ?? Fund of Knowledge: normal ?? Insight: poor ?? Judgment: poor Current Medications: Scheduled: ??? propranolol 10 mg Oral TID ??? QUEtiapine 100 mg Oral Nightly PRN: gabapentin, QUEtiapine, melatonin, ibuprofen, acetaminophen, LORazepam Labs: Last 24 Hours: No results found for this or any previous visit (from the past 24 hour(s)). Psychiatry Labs: Preg: No results found for: HCGQUAL, HCGQUANT Heme: No results found for: WBC, HGB, HCT, PLATELET, MCV, NEUTROABS No results found for: HA1C, SEDRATE Chem: No results found for: NA, K, CL, CO2, BUN, GLUCOSE, GLUCFASTING No results found for: CALCIUM, MAGNESIUM, PHOS LFTs: No results found for: ALT, AST, GGT, ALKPHOS, BILITOT, AMMONIA Coags: No results found for: PTT, PT, INR Thyroid: No results found for: TSH, W0KTTYN, TT4 Lipids and HgbA1C: No results found for: CHLPL, HDL, CHOLHDL, LDLCHOL, LDLDIRECT, TRIG No results found for: HA1C Vit Lvls: No results found for: EXHGPALV13, SFOLATE UA: No results found for: GLUCOSEU, KETONESUA, PROTEINUADIP, BLOODUADIP, LEUKOESTERUA, NITRATEUA, WBCUA (May not represent most recent UA results. See eD-H labs for more details.) Tox: No results found for: ETHANOL, ACTMNPHEN, SALICYLATE, LEAD No results found for: UDAUSCREEN Rx Lvls: No results found for: LITHIUM, CARBAMAZEPIN, VALPROATE, LAMOTRIGINE, CLOZAPINE Assessment: Hasmukh Young is a 20 y.o. female admitted on 05/02/2016 for with worsening anxiety, panic attacks,and agoraphobia, which started after a concussion on 04/01/16. Please see Dr. Burton's extensive assessment from her H&P of 05/01/2016. Hasmukh does have a reported history of jacqui, however, this is not based on a diagnosis made by a psychiatric provider and she has never been treated for bipolar disorder or jacqui. For the current hospitalization, our main concern should be to control her symptoms of anxiety and insomnia. For anxiety, will continue lorazepam, but will add on propranolol, which should help with her somatic symptoms as well as providing some migraine prophylaxis. For sleep, will start her on quetiapine, as trazodone has not worked for her, and, if there is an element of jacqui, quetiapine could be titrated up as needed to help treat it. Today: slightly less distressed and fearful, but still very anxious. seroquel and propranolol appear to be helpful. Current Working Primary Diagnosis: acute stress reaction vs. Post-concussive syndrome Clinical Global Impression Severity of illness: Considering your total clinical experience with this particular population, how mentally ill is the patient at this time? 6 = Severely ill Global improvement: Rate total improvement compared to condition at admission, how much has she changed? Minimally Improved Plan: # Anxiety ?? Continue Seroquel 100mg QHS ?? Increase propranolol to 10mg TID ?? PRNs of seroquel, ativan, neurontin ?? Continue to encourage leaving the room ?? Avoid SSRIs for fear of recent manic episode # concussion ?? Seen by neurology prior to admission ?? # Disposition: -After stabilization, patient expected to return home . Additional Information: Reasons for continued hospitalization: Warrants ongoing inpatient admission for safety, stabilization, and any other therapeutic intervention that could conceivably improve the patient's condition (including medication management, group psychotherapy, establishing adequate outpatient care). Outpatient Care: Provider Name Date Contacted By Treatment Team Psychiatric prescriber Therapist PCP Patient Instruction/Education Provided: Patient provided verbal instructions during rounds regarding the treatment plan. I have reviewed and agree with the multidisciplinary treatment plan. I certify that the patient requires [x] inpatient care for psychiatric treatment that could reasonably be expected to improve the patient's condition and/or diagnostic study. Signed By: DARIA CARBALLO MD 05/04/2016 * Timbo Mariana Jeremías MS - 05/04/2016 12:30 PM EST Inpatient Daily Group Note Group: Goals; Reviewed BA, GEM, daily schedule, patients' progress and goals and read daily text. Notes: Patient did not attend group due to acute symptoms of panic and agrophobia. Plan to gradually desensitize patient to being out of room and hopefully eventually join groups. Today, patient was introduced to therapist by her nurse and she started crying and panicking just at the mere sight of a new person. MARIANA IZQUIERDO MS 05/04/2016 * Brittani Bautista - 05/03/2016 12:39 PM EST Inpatient Daily Group Note Group: Goals Notes: Pt. not invited due to sign on door to not knock BRITTANI BAUTISTA 05/03/2016 * Jes Zepeda, LYDIA - 05/03/2016 6:27 AM EST Patient requested something for sleep and anxiety. Melatonin offered and she stated this reved herup. Gabapentin offered and received with good effect at 0144. documented in this encounter H&P Notes * Jose Eduardo Song MD - 05/02/2016 5:47 PM EST Psychiatry Inpatient Admission - History & Physical Note 05/02/2016 ID Name: Hasmukh Young Age: 20 y.o. Gender: Female Marital Status: single Children: none Employment: previously worked as [employer], but has not worked for past month Residence: [address] [id number] Guardian/Medical Decision Maker: (if other than self) self Outpatient Providers: (include location) Current Mental Health Prescriber: none Current Therapist: none PCP: None Chief Complaint: 20 y.o. Female presents to [facility] with anxiety and panic attacks since concussion on 04/01/16. Interval History: (1,1,4) Hasmukh returns for admission today after being discharged yesterday to the ED for further neurological work-up. Please see Dr. Burton's H&P for 05/01/2016 for complete HPI and Assessment. Interval changes: - Hasmukh received MRI today from the ED, exam was negative. - main complaint today is concern over insomnia: she hasn't slept in weeks. Hasmukh and her motherwould like this to be a focus of this admission. Has tried trazodone over recent nights, but it hasnot helped. - Hasmukh continues to have trouble answering questions directly to the team; often asking her mother to answer for her, or putting her stuffed animal in front her face before answering. - continues to endorse anxiety; some relief with lorazepam - patient and family continue to have concern over groups - complaining of not being able to tolerate bright lights or loud noises From Dr. Burton's HPI of 05/01/2016, reviewed and verified by patient and family: Hasmukh Young is a 20 year-old woman who presents to [facility] psychiatry as a transfer from [facility], where she had presented on 04/30/16 with complaints of increased anxiety and inability to leave her room after a minor head injury last month. The following history was obtained from medical records sent with the patient from [facility] ED, the patient's mother and aunt. Some [...] specialties yet. (She has an appointment with [facility] neurology on 05/07/16). Has not hada brain MRI. ?? 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 She saw an editorial clerk for this and they said she had [...] paranoid and fearful about every little noise. ?? Quality of symptoms: severe Onset: sudden, 1 month ago Duration: symptoms are constant Quality: per HPI Modifying factors: pt denies any Associated signs and symptoms: Appetite: decreased Sleep: has been extremely poor, but pt states it is different from her sleep when she is manic Energy: does not feel fatigued despite lack of sleep ?? Psychiatric Review of Systems: Sustained Depressed Mood: - Sustained Elevated Mood: - Sustained Irritable Mood: + Flashbacks: - Nightmares: + Panic Attacks: + Chronic Worry: + Psychotic Symptoms: - Obsessions/Compusions: - Violence: - Self Harm: - Other Psychiatric History: Prior diagnoses: Depressive episodes, since high school Per report, Bipolar I with manic episodes since late teens; has not been treated Past hospitalization and location: [facility] 05/01/16 - left immediately after intake interview Suicide attempts: denies Past psychiatric medications: Sertraline 50mg daily since about 2009, stopped recently due to fears of triggering manic episode Substance Use History/Treatment: Alcohol: endorses alcohol abuse during manic episodes Tobacco: denies Other: has used lazara, MDMA, cocaine during manic episodes. No IV drug use. Audit-C Tobacco Use Status (Tob-1) 1. How often do you have a drink containing alcohol? 2 to 4 times a month - (2pt) 2. How many standard drinks containing alcohol do you have a typical day? 5 or 6 - (2pt) 3. How often do you have six or more drinks on one occasion? Weekly - (3pt) Total Score: 7 In men, a score of 4 or more is considered positive, optimal for identifying hazardous drinking or active alcohol use disorder. In women, a score of 3 or more is considered positive (same as above). Tobacco Use Status (Tob-1): Have you used tobacco products in the past 30 days? No Outpatient Medications: Current Facility-Administered Medications on File Prior to Encounter Medication Dose Route Frequency Provider Last Rate Last Dose ??? [COMPLETED] acetaminophen (TYLENOL) tablet 650 mg 650 mg Oral Once Elizabeth Skinner MD 650 mgat 05/02/16 0312 ??? [COMPLETED] LORazepam (ATIVAN) tablet 1 mg 1 mg Oral Once Lynne Johns MD 1 mg at [id number] ??? [COMPLETED] ondansetron (ZOFRAN-ODT) oral disintegrating tablet 4 mg 4 mg Oral Once Lynne Johns MD 4 mg at 05/02/16 0834 ??? [COMPLETED] acetaminophen (TYLENOL) tablet 650 mg 650 mg Oral Once Lynne Johns MD 650 mg at 05/02/16 1359 ??? [COMPLETED] LORazepam (ATIVAN) injection 1 mg 1 mg Intravenous Once Solomon Estevez MD 1 mg at 05/02/16 1220 ??? [COMPLETED] LORazepam (ATIVAN) injection 1 mg 1 mg Intramuscular Once Solomon Estevez MD 1 mgat 05/02/16 1647 ??? [DISCONTINUED] LORazepam (ATIVAN) injection 1 mg 1 mg Intravenous Once Lynne Johns MD ??? [DISCONTINUED] LORazepam (ATIVAN) injection 1 mg 1 mg Intravenous Once Solomon Estevez MD 1 mg at 05/02/16 1634 ??? [DISCONTINUED] LORazepam (ATIVAN) tablet 1 mg 1 mg Oral Q6H PRN Regina Burton MD 1 mg at 05/01/16 1909 ??? [DISCONTINUED] acetaminophen (TYLENOL) tablet 650 mg [...] Allergies: Allergies Allergen Reactions ??? Codeine Rash Problem List: Patient Active Problem List Diagnosis Code ??? Hip pain, right M25.551 ??? Panic disorder with agoraphobia F40.01 Past Medical/Surgical History: Past Medical History Diagnosis Date ??? Allergy ??? Circulatory disease Past Surgical History Procedure Laterality Date ??? 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 History of Abuse or Neglect: denies Legal History: denies Pain Assessment: Recent pain severity: 5/10 (10=worst) Location of pain due to medical condition: headache Controlled with use of: ibuprofen Review of Systems: Review of Systems: (2, 10) CONST No recent weight change and No fever EYES occasional double vision ENT frequent bloody noses,, No hearing loss, No rhinorrhea, No hoarseness and No sore throat CV endorses palpitations RESP endorses SOB GI diffuse abdominal pain /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 ENDO No temperature intolerance HEME/LYMPH No easy bruising, No easy bleeding, No edema and No lymph node enlargement ALL/IMMUNO No symptoms of Sinustis, No symptoms of Environmental Allergies and No Frequent Infections Physical Exam: Vitals ED from 05/02/2016 in Emergency Department Weight - Scale 81.6 kg (180 lb) Temp 36.8 ??C (98.2 ??F) Temp Source Oral Heart Rate 102 Heart Rate Source SaO2 Resp 18 BP 125/78 BP Location Right arm Patient Position Lying SpO2 99 % Musculoskeletal System: normal gait and balance (See also: MSE: Behavior) GEN No acute distress HEAD Normocephalic and Atraumatic EYES PERRL, No scleral icterus, No injection and EOMI ENT Moist mucous membranes , Normal dentition, Normal palatal elevation , No pharyngeal erythema and No pharyngeal exudate NECK No LAD and No thyromegaly CV RRR and No M/G/R PULM Clear to auscultation bilaterally ABD Soft, NT, ND, +BS and No hepatosplenomegaly EXTR No C/C/E and Good peripheral pulses NEURO Grossly nonfocal and CN II-XII grossly intact SKIN wnl Mental Status Exam: 20yo woman, appearing stated age, wearing hospital gown, sitting cross-legged on hospital bed, witharms curled around her legs, eyes downcast, holding onto small stuffed animal dog and 8x12 glossy photo of a real dog. Visibly anxious, low frequency rocking; intermittently cooperating with interview, turning to mother in order to have her answer many of our questions; answering only to correct mother's answers; very poor eye contact, often holding stuffed animal in front of her face. Speech normal rate and rhythm, low volume and higher pitched - childlike. Fluent, non-profane language. Reports mood as still anxious. Affect is mood-congruent, restricted, very anxious. Linear thought process with intact associations. Denies SI and HI. Denies AVH; no delusions noted; not responding to internal stimuli. Oriented x4 with attention and concentration good by interview. Cognition and memory grossly intact, with age appropriate fund of knowledge. Insight and judgment poor. Pertinent Labs or Studies: Labs Last 24 Hours: Recent Results (from the past 24 hour(s)) POCT urine Result Value Ref Range POC Urine HCG Negative Negative - Negative POC Control Internal Controls Acceptable Metabolic Labs: No results found for: TSH No results found for: HA1C No results found for: CHLPL, HDL, CHOLHDL, LDLCHOL, LDLDIRECT, TRIG Assessment: Hasmukh Young is a 20 y.o. Female who presents to [facility] with worsening anxiety, panic attacks, and agoraphobia, which started after a concussion on 04/01/16. Please see Dr. Burton's extensive assessment from her H&P of 05/01/2016. Hasmukh does have a reported history of jacqui, however, this is not based on a diagnosis made by a psychiatric provider and she has never been treated for bipolar disorderor jacqui. For the current hospitalization, our main concern should be to control her symptoms of anxiety and insomnia. For anxiety, will continue lorazepam, but will add on propranolol, which should help with her somatic symptoms as well as providing some migraine prophylaxis. For sleep, will start her on quetiapine, as trazodone has not worked for her, and, if there is an element of jacqui, quetiapine could be titrated up as needed to help treat it. Safety Risk Assessment: Warrants inpatient admission for safety, stabilization, and any other therapeutic intervention that could conceivably improve the patient's condition (including medication management, group psychotherapy, establishing adequate outpatient care). DSM Multiaxial Diagnosis: panic disorder with agoraphobia; post concussive syndrome; r/o bipolar 1 disorder, current episode manic Clinical Global Impression: Severity of illness: Considering your total clinical experience with this particular population, how mentally ill is the patient at this time? 6 = Severely ill Plan: ?? Admit patient to Psychiatry Care Unit ?? Activity: Restrict to Unit (RTU) ?? Start propranolol 5mg BID, with plan to titrate up if tolerated for anxiety ?? Start quetiapine 50mg QHS for insomnia ?? C/w lorazepam 1mg BID prn for anxiety ?? Ibuprofen and tylenol for headache pain as needed Preventative/Prophylaxis: ?? Pneumovax and Influenza immunizations to be given as needed. ?? DVT prophylaxis not indicated: patient is at low risk for VTE and is fully ambulatory. ?? If currently a smoker: advised about smoking cessation, will provide cessation material and support. Disposition: Estimated length of time needed for hospital staff is 3-5 days. Proposed post-discharge care will likely include establishing follow up community care prior to discharge. Team will contact outpatient prescriber and therapist for collateral information and continuity of care. Discussed Advanced Directives and Code Status. The patient wishes to be Full Code. I certify that the inpatient psychiatric hospital admission is medically necessary for Treatment that could reasonably be expected to improve patient's condition. Signed By: Jose Eduardo Song MD 05/02/2016 Associated attestation - Daria Carballo MD - 05/03/2016 2:01 PM EST PSYCHIATRY TEACHING PHYSICIAN INVOLVEMENT Location: Adult Psychiatry Inpatient Unit, [facility] Attending Physician: Daria Carballo MD I saw and evaluated the patient with the residential finish carpenter today. Please see their note for details. I reviewed the patient's history during the visit and I agree with the details as written in the residents note. My exam confirms the resident's findings. The assessment and plan were formulated in discussion with me and I agree with them as documented. Major issues addressed/discussed: Hasmukh Young is a 20 y.o. female with h/o concussion and possible bipolar disorder, with recent manic episode, admitted with severe anxiety and change in personality. In the hospital, appears very anxious, fearful of the door to her room being open, lying in bed,clutching her manfred, crying. Reports she doesn't feel safe because she doesn't like people, but denies SI or HI. Reports interrupted sleep. Has been cleared by neurology and had normal MRI. Other comments: Continue standing and PRN Seroquel. Increase Seroquel to 100mg QHS Avoid SSRIs for now given concern for recent manic episode, and behavior seems somewhat disorganized PRn ativan for anxiety Cleared by neurology Reports feeling safe on the unit Encourage milieu and group therapy I certify that the patient requires: [x] inpatient care for psychiatric treatment that could reasonably be expected to improve the patient's condition and or diagnostic study. DARIA CARBALLO MD documented in this encounter Miscellaneous Notes * Plan of Care - Caroline Beck RN - 05/08/2016 12:25 PM EST Problem: Coping, Compromised Individual (Adult,Obstetrics,Pediatric) Intervention: Support/Enhance Coping Strategies 05/08/16 1246 Coping/Psychosocial Interventions Environmental Support calm environment promoted;distractions minimized;personal routine supported;rest periods encouraged Coping Strategies Complementary Therapy art therapy;aromatherapy Supportive Measures active listening utilized;counseling provided;journaling promoted;problem solving facilitated;self-care encouraged;self-responsibility promoted Family/Support System Care self-care encouraged;support provided * Plan of Care - Caroline Beck RN - 05/08/2016 12:25 PM EST Problem: Patient Care Overview Goal: Plan of Care Review Outcome: Outcome (s) achieved Date Met: 05/08/16 05/08/16 1344 Coping/Psychosocial Plan Of Care Reviewed With patient;family Plan of Care Review Progress progress toward functional goals as expected OUTCOME EVALUATION NOTE: OUTCOME SUMMARY: [place] slightly irritable this am- does not like it hereThis place is depressing and that is why Icut myself before She denies any SIB thoughts this am and CFS firmly- she Agreed to seek out staff if this changed. She completed her RPP and reviewed with sports book writer. She rated her anxiety is over 10 and was given Klonipin 1 mg This am with fair effect- anxiety is now 7/10. She is adamant that groups Do not work for her- declined to try the relaxation exercises. She mentioned she had a h/a but declined a cold face cloth or any pain med re same. PLAN MOVING FORWARD: D/c later today INDIVIDUALIZED FALL PREVENTION INTERVENTIONS: Patient-specific fall risk factors per assessment: [current deficits]: LFR Assistance [level of assistance required for transfers and ambulation]: n/a Supervision [direct monitoring required during toileting and ADLs]: n/a Surveillance [continuous indirect monitoring]: 30 min Patient-specific fall prevention interventions for sensory deficits provided, if applicable: [X] N/A CPG GOAL OUTCOME EVALUATION: * Plan of Care - Argenis Price RN - 05/07/2016 10:35 PM EST Problem: Patient Care Overview Goal: Plan of Care Review Outcome: Ongoing (Interventions Implemented as Appropriate) 05/07/165 Coping/Psychosocial Plan Of Care Reviewed With patient Plan of Care Review Progress improving OUTCOME EVALUATION NOTE: OUTCOME SUMMARY: Pt up and visible on the milieu, continues wearing sunglasses to carroll off headaches. Pt rates depression 7, anxiety 7 ,pain 0. Requested and received ativan i mg earlier in the shift. Reviewed dont let your emotions run your life and get out of your mind and into your life. , received handouts for exercises she felt would be helpful, worked on relapsed prevention plan. Attended wrap-up, received posited feedback for hard work, states she is discharging tomorrow, unsure if she is exceptingdiagnosis of BPD. PLAN MOVING FOINDIVIDUALIZED Ptt verbally agrees to seek out staff for support for any change in level of safety FALL PREVENTION INTERVENTIONS: Patient-specific fall risk factors per assessment: [current deficits]: low fall risk Assistance [level of assistance required for transfers and ambulation]: independent Supervision [direct monitoring required during toileting and ADLs]: independent Surveillance [continuous indirect monitoring]: 30 minute safety checks, purposeful rounding Patient-specific fall prevention interventions for sensory deficits provided, if applicable: [X] N/A CPG GOAL OUTCOME EVALUATION: * Med Student Progress Note - Blayne Gomez V - 05/07/2016 2:22 PM EST Psychiatry Inpatient - Medical Student Progress Note Admit Date: 05/02/2016 Hospital Day 5 Chief Complaint/ Brief Clinical History: Hasmukh is a 20 year old female who presented with acute onset anxiety and behavioral dysregulation following an unwitnessed head injury. Interval Events: ?? Had no episodes of uncontrollable anxiety or acting out. ?? Thorazine helped with sleep and anxiety, but was given too early in the day. [place] groggy too soon before bed. Did not need PRN ?? Propranolol has helped with palpitations ?? Feels anxious about going to groups but forced herself ?? Read pamphlet about borderline personality disorder. Feels that the diagnostic criteria sound consistent with her symptoms. Relieved to know what's going on, but upset that it cannot be treated with medication. Hates therapists and is adamant that she will not go see one. Scheduled Meds: ??? chlorproMAZINE 50 mg Oral Nightly ??? propranolol 10 mg Oral TID PRN Meds: chlorproMAZINE, gabapentin, melatonin, ibuprofen, acetaminophen, LORazepam Physical Exam: Last value Range last 24 hrs Temperature Temp: 36.3 ??C (97.3 ??F) Temp: [36.3 ??C (97.3 ??F)] Heart Rate Heart Rate: 133 Heart Rate: [87-133] Blood Pressure BP: 132/87 BP: (122-132)/(80-87) Respiratory Rate Resp: 19 Resp: [19] SpO2 SpO2: 100 % SpO2: [97 %-100 %] Mental Status Evaluation: Appearance: Adult female, appears stated age. Good grooming and hygiene. Wearing casual, warm-weather clothes. Behavior: Pleasant and cooperative with interview Anxious Speech: Fast rate. Normal volume, latency of response No mumbling, word finding difficulty, mis-use of words. Language: Coherent. No obvious deficits. No problems expressing self. No neologisms. No echolalia. Mood: Calm Affect: Congruent ; appropriate for the situation. Labile when discussing diagnosis/prognosis, became tearful quickly Thought Process: Linear Thought Content: SI: denies HI: denies AVH: denies No evidence delusions, obsessions, grandiosity, or ideas of reference. Sensorium: Alert & oriented to person, place, date, and situation. Cognition: Able to relate detailed sequential history without difficulty. Insight: Limited Judgement: Limited Assessment: Hasmukh is a 20 year old female who presented with acute onset anxiety and behavioral dysregulation following an unwitnessed head injury. Her working primary diagnosis remains unspecified personality disorder with features that have acutely worsened as a result of her head injury. The patient is in agreement with this diagnosis, although she expressess a strong desire to not engage in outpatient treatment. She feels that she is of no danger to herself or others and would benefit mostfrom returning home. The care team is in agreement and feels she will be ready for discharge tomorrow. She is agreeable to setting up care with an outpatient therapist in case she changes her mind. Thorazine should continue to help with her somatic symptoms including insomnia, headache, nausea in addition to her anxiety. In the interim, her dose should be moved back to bedtime to allow her to participate in treatment as much as possible during the day. Plan: #unspecified personality disorder ?? Schedule outpatient follow up appointment with therapist #anxiety ?? Continue thorazine 50 mg QHS + 25 mg PRN ?? Continue propranolol 10 mg TID #sleep ?? Continue benadryl 25 mg QHS #disposition ?? Tomorrow pending continued remission of behavioral dysregulation * Plan of Care - Jes Zamarripa RN - 05/07/2016 10:28 AM EST Problem: Patient Care Overview Goal: Plan of Care Review Outcome: Ongoing (Interventions Implemented as Appropriate) 05/06/161 Coping/Psychosocial Plan Of Care Reviewed With patient Plan of Care Review Progress improving OUTCOME EVALUATION NOTE: OUTCOME SUMMARY: Pt denies depression pain, and SI. Rates anxiety high at 8/10. Pulse 133. Received am Propanolol with benefit. Med education re: anxiety meds. Discussed tx plan for today, and pt hopeful she can attend a therapy group. PLAN MOVING FORWARD: meds as ordered, group therapy, relaxation and anxiety reduction techniques. INDIVIDUALIZED FALL PREVENTION INTERVENTIONS: Patient-specific fall risk factors per assessment: [current deficits]: none Assistance [level of assistance required for transfers and ambulation]: independent Supervision [direct monitoring required during toileting and ADLs]: Esc to group Surveillance [continuous indirect monitoring]: Q 30 minute checks Patient-specific fall prevention interventions for sensory deficits provided, if applicable: [X] No CPG GOAL OUTCOME EVALUATION: Pt anxious this am , but calmer after am meds. * Plan of Care - Argenis Price RN - 05/06/2016 10:35 PM EST Problem: Patient Care Overview Goal: Plan of Care Review Outcome: Ongoing (Interventions Implemented as Appropriate) 05/06/16 2231 Coping/Psychosocial Plan Of Care Reviewed With patient Plan of Care Review Progress improving OUTCOME EVALUATION NOTE: OUTCOME SUMMARY: Pt up and visible on the milieu, social with staff and peers.denies depression, anxiety 7-8, deniespain although states she feels as if I'm coming down with a cold. Requested and received PRN thorazine with desired effect. Denies S/I, H/I PLAN MOVING FORWARD: Discharge planning, medication management/ education, goal setting, groups , INDIVIDUALIZED FALL PREVENTION INTERVENTIONS: Patient-specific fall risk factors per assessment: [current deficits]: low fall risk Assistance [level of assistance required for transfers and ambulation]:independent Supervision [direct monitoring required during toileting and ADLs]: independent Surveillance [continuous indirect monitoring]: 30 minute safety checks, purposeful rounding Patient-specific fall prevention interventions for sensory deficits provided, if applicable: [X] N/A CPG GOAL OUTCOME EVALUATION: * Plan of Care - Jes Zamarripa RN - 05/06/2016 10:38 AM EST Problem: Patient Care Overview Goal: Plan of Care Review Outcome: Ongoing (Interventions Implemented as Appropriate) 05/04/16 2335 Coping/Psychosocial Plan Of Care Reviewed With patient Plan of Care Review Progress improving OUTCOME EVALUATION NOTE: OUTCOME SUMMARY: Pt reports sleeping poorly (5-6 hours) r/t waking up a lot. Denies depression and SI and rates anxiety as 6. Pt's speech issue resolved. Talking smooth and spontaneous. Discussed how emotional pain can manifest itself physically at times . Pt reports difficult relationship with mother which she feels in unhealthy for both. Pt reports she does not want mother and aunt involved in care because [facility]. Pt's goal is to go to some groups today in order to improve and discharge soon. Positive feedback given. PLAN MOVING FORWARD: meds as ordered, group therapy, discharge planning INDIVIDUALIZED FALL PREVENTION INTERVENTIONS: Patient-specific fall risk factors per assessment: [current deficits]: none Assistance [level of assistance required for transfers and ambulation]: independent Supervision [direct monitoring required during toileting and ADLs]: Esc to group Surveillance [continuous indirect monitoring]: Q 30 minute checks Patient-specific fall prevention interventions for sensory deficits provided, if applicable: [X] No CPG GOAL OUTCOME EVALUATION: Pt much improved. Motivated and future oriented. * Plan of Care - Jes Zamarripa RN - 05/05/2016 5:10 PM EST Problem: Patient Care Overview Goal: Plan of Care Review Outcome: Ongoing (Interventions Implemented as Appropriate) 05/04/16 2335 Coping/Psychosocial Plan Of Care Reviewed With patient Plan of Care Review Progress improving OUTCOME EVALUATION NOTE: OUTCOME SUMMARY: Pt doing self Q 15 minute checks . Denies SI and agrees to let staff know if SI returns . Agreeableto try group this mary. Requested and received Ativan with benefit for anxiety . OOR interacting with peers on the unit. Changed contact sheet so mother and Aunt CAN NOT visit and we can not share information. Pt unwilling to discuss why with sports book writer. No further incontinence or outbursts on the unit.Positive feedback given for control of emotions. Plan is to try groups tomorrow. PLAN MOVING FORWARD: meds as ordered, trial groups off the unit tomorrow INDIVIDUALIZED FALL PREVENTION INTERVENTIONS: Patient-specific fall risk factors per assessment: [current deficits]: None Assistance [level of assistance required for transfers and ambulation]: independent Supervision [direct monitoring required during toileting and ADLs]: Esc to group Surveillance [continuous indirect monitoring]: q 30 minute checks Patient-specific fall prevention interventions for sensory deficits provided, if applicable: [X] No CPG GOAL OUTCOME EVALUATION: Pt in better control this mary. oor more social. Eating improved. * Plan of Care - Jes Zamarripa RN - 05/05/2016 10:30 AM EST Problem: Patient Care Overview Goal: Plan of Care Review Outcome: Ongoing (Interventions Implemented as Appropriate) 05/04/16 8515 Coping/Psychosocial Plan Of Care Reviewed With patient Plan of Care Review Progress improving OUTCOME EVALUATION NOTE: OUTCOME SUMMARY: Pt mute when sports book writer came in to give her meds this am. Pt crying after conversation with therapist about attending groups. Came out of room and urinated on the floor in the mejia. Proceeded to call family crying asking them to pick her up. Regressed. Requiring increased attention and support. PLAN MOVING FORWARD: meds as ordered, group therapy, INDIVIDUALIZED FALL PREVENTION INTERVENTIONS: Patient-specific fall risk factors per assessment: [current deficits: none Assistance [level of assistance required for transfers and ambulation]: Independent Supervision [direct monitoring required during toileting and ADLs]: Esc to group Surveillance [continuous indirect monitoring]: q 30 minute checks Patient-specific fall prevention interventions for sensory deficits provided, if applicable: [X] No CPG GOAL OUTCOME EVALUATION: Pt regressed and crying. No willing to engage in groups at this time. * Plan of Care - Mckenna Sutton - 05/05/2016 7:36 AM EST MULTIDISCIPLINARY TREATMENT PLAN Todays Date: 05/05/2016 Patient: Hasmukh Young Admit Date: 05/02/2016 6:51 PM CODE STATUS:Full Code Initial date of care plan. __05/05/16_ Update Q7 days Working Diagnosis: Post concussive syndrome [F07.81] panic disorder with agoraphobia; post concussive syndrome; r/o bipolar 1 disorder, current episode manic PATIENT'S REASON FOR HOSPITALIZATION (his or her own words) ?? I'm feeling scared about the groups STRENGTHS STRESSORS TARGET SYMPTOMS 1. employed Personality changes insomnia 2. Supportive network Head injuries anxiety 3. Mood lability GOALS 1 Stabilize target symptoms and improve understanding of illness 2 Work with Patient Debt Management Counselor to create and implement aftercare plan 3 Medication optimization 4 Groups for education, skill building and support 5 Complete Relapse Plan prior to discharge PHYSICIAN INTERVENTIONS ACTIVITY INTERVENTIONS 1. Continued psychiatric evaluation 1. Behavioral Activation Communication Program 2. Med management/Brief therapy 2. Therapeutic groups & activities 3. Diagnostic/Medical testing/Labs 3. Patient and family education NURSING INTERVENTIONS PCM & SW INTERVENTIONS 1. Purposeful rounding 1. Facilitate communication with family 2. See Nursing care plan 2. Facilitate communication with providers 3. 3. Assist with discharge planning The multidisciplinary team reviewed falls prevention plan with me. I have worked with my treatment team and agree with the plan above. PATIENT SIGNATURE DATE: Hasmukh Young PRINT NAME: SIGNATURE: DATE: RESIDENT PHYSICIAN ATTENDING PHYSICIAN NURSING PATIENT MILLWRIGHT APPRENTICE Mckenna Sutton ACCOUNTING TUTOR [facility] THERAPIST FLOWER ARRANGER Nuris GALLEGO * Initial Assessments - Mckenna Sutton - 05/05/2016 7:36 AM EST Initial Patient Assessment MCKENNA SUTTON RN reviewed record and discussed patient with Care Team on 05/05/2016. Introduced/reviewed role; services accepted. Hasmukh Young is a 20 y.o. year old female (1995) presenting to [address] [place] [address] for treatment with Post concussive syndrome [F07.81] Anticipated Length Of Stay (If known): unknown Patient/Caregiver Goals of Treatment: unclear on admission Source of Information: Pt supplied/corraborated REASON for HOSPITALIZATION: safety concerns in context of reported drastic personality changes and level of functioning Medical/Behavioral Health History: has Hip pain, right; Panic disorder with agoraphobia; and Post concussive syndrome on her problem list. Current treaters: none Hospitalizations Within the Past 30 Days: none known PERTINENT INFO FROM H & P: She denies feeling depressed, but is worried that she will become depressed and that she may get suicidal if that happens. She thought she may have been slightly manic 1-2 weeks ago; although she stayed in her room she had more energy and played games all night. Rightnow she does not feel either depressed or manic; aside from the anxiety, she feels like herself. She endorsed having had passive SI at times because of all the panic attacks, but clearly denied anyintent or plan. ? She endorsed PTSD symptoms of nightmares and [...] is nervous to sleep because of this. ADVANCE DIRECTIVES: <no information> Information provided as needed HEALTH /PRESCRIPTION COVERAGE: Current Effective Coverage: Payor/Plan Subscr Sex Relation Sub. Ins. ID Effective Group Num 1. WORK COMP GEN* HASMUKH YOUNG 1995 Female 04/01/16 2. [employer] - BH CI* KAROLINA BARRY 09/02/1973 Female [id number] 03/30/16 [id number] [address] Prescription Coverage: see above Confirmed Preferred Pharmacy: [facility] Other: Worker???s Comp. HOME ENVIRONMENT / SOCIAL & FAMILY SUPPORTS/COMMUNITY RESOURCES:(living situation, family constellation, Caregivers, current use & knowledge of community resources, etc.) Extended Emergency Contact Information Primary Emergency Contact: Karolina Young/Leif [facility] Relation: Parent Secondary Emergency Contact: Vanda Bartholomew Address: [address] [place] [address] [facility] Relation: Father Lives with mother PRIMARY CARE PHYSICIAN: Mao Hale MD [address] / [facility] [phone] MENTAL HEALTH PRESCRIBER: PCP Current Decision-Making Capacity: (Level of Alertness/Orientation, dementia/ cognitive deficit, if patient is a minor - assess parent/guardian, etc.) Able to consent to or refuse care. CURRENT PATIENT & FAMILY EDUCATION, COPING NEEDS: (Address patient/family satisfaction with care to date, understanding of current status and plan of care, need for family meeting, need for rehabilitation manager, etc.) Consideration of continuing treatment outside the hospital Functional Status Prior to Admission: Able to perform ADLs/IADLs independently Current Functional Ability: (use of assistive devices, working with PT/OT, etc.) Able to perform ADLs/IADLs independently Anticipated Barriers to Discharge/Special Considerations: (Financial/underinsured, behavioral, lackof needed support/access to community resources, current substance abuse, homelessness, etc.) None noted Potential Needs for Transition of Care: Home Health: no Any special transportation needed at D/C to [address] [id number]? no Rehab/SNF: na New community resources referrals needed? yes PLAN: Pt identified PCM will continue to monitor progress, follow for continuity of care and assistwith transition of care planning while hospitalized. MCKENNA SUTTON [employer] [facility] PAGER: [phone] * Plan of Care - Rosi Condon RN - 05/04/2016 11:45 PM EST Problem: Patient Care Overview Goal: Plan of Care Review Outcome: Ongoing (Interventions Implemented as Appropriate) 05/04/16 8901 Coping/Psychosocial Plan Of Care Reviewed With patient Plan of Care Review Progress improving OUTCOME EVALUATION NOTE: OUTCOME SUMMARY: Pt in room all evening. Non-communicative 1 st part of shift, eyes open and no response. She then awoke in tears because her day nurse is not working tomorrow. Weeping and talking in a child-like voice, adds a's before words. Refused to eat. Then later told nurse in tears, fearing nurse'd be mad ather and showed L wrist, which has 3-4 very superficial scratches on. reports head too full of anxiety and depression, that she couldn't help herself and couldn't promise she could stay safe on unit. All sharps removed and pt placed on 15 minute checks. Compliant with meds and fel off to sleep. PLAN MOVING FORWARD: INDIVIDUALIZED FALL PREVENTION INTERVENTIONS: Patient-specific fall risk factors per assessment: [current deficits]: 2 nd dx Assistance [level of assistance required for transfers and ambulation]: None, independent Supervision [direct monitoring required during toileting and ADLs]: none Surveillance [continuous indirect monitoring]: q 15 minute checks, purposeful rounding Patient-specific fall prevention interventions for sensory deficits provided, if applicable: Routine fall risk CPG GOAL OUTCOME EVALUATION: Goal: Individualization & Mutuality Outcome: Ongoing (Interventions Implemented as Appropriate) 05/02/162014 Mutuality/Individual Preferences What Anxieties, Fears or Concerns Do You Have About Your Health or Care? I get very anxious. What Questions Do You Have About Your Health or Care? medication and if I can bring my dog. What Information Would Help Us Give You More Personalized Care? Please do not knowck, loud noise and lot of people ,make me anxious. Goal: Fall Prevention-Safe Patient Handling Outcome: Ongoing (Interventions Implemented as Appropriate) 05/02/16224305/03/16224405/04/16 121 Restraint Interventions Safety Promotion/Fall Prevention -- fall prevention program maintained;nonskid shoes/slippers when out of bed;safety round/check completed -- Musculoskeletal Interventions Muscle Strengthening activity/mobility promoted -- -- Positioning Body Position -- independent -- Activity and Safety Assistive Device -- None -- Daily Care Interventions Self-Care Promotion -- BADL personal routines maintained -- Puga Fall Risk History of Falling -- -- 25 Secondary Diagnosis -- -- 15 Ambulatory Aids -- -- 0 Intravenous Therapy/Heparin/Saline Lock -- -- 0 Gait/Transferring -- -- 0 Mental Status -- -- 0 Score -- -- 40 OTHER Puga Fall Risk -- -- Low Goal: Infection Control Outcome: Ongoing (Interventions Implemented as Appropriate) 05/03/16224405/04/161214 Coping Strategies Supportive Measures -- self-reflection promoted;self-care encouraged;verbalization of feelings encouraged;positive reinforcement provided;goal setting facilitated Safety Interventions Isolation Precautions standard precautions maintained -- Infection Prevention rest/sleep promoted;environmental surveillance performed -- Goal: Discharge Needs Assessment Outcome: Ongoing (Interventions Implemented as Appropriate) 05/02/16224305/03/162244 Discharge Needs Assessment Concerns To Be Addressed -- mental health concerns;coping/stress concerns Readmission Within The Last 30 Days -- no previous admission in last 30 days Provider Choice List(s) Given no -- Equipment Needed After Discharge -- none Discharge Disposition -- home or self-care Activity/Self Care Review of Systems Equipment Currently Used at Home -- none Current Health Outpatient/Agency/Support Group Needs -- outpatient psychiatric care (specify) Anticipated Changes Related to Illness -- none Living Environment Transportation Available -- family or friend will provide Problem: Anxiety (Adult) Intervention: Promote Anxiety Reduction/Resolution 05/03/16224405/04/161214 Cognitive Interventions Sensory Stimulation Regulation auditory stimulation minimized;quiet environment promoted -- Coping/Psychosocial Interventions Environmental Support calm environment promoted;personal routine supported -- Coping Strategies Supportive Measures -- self-reflection promoted;self-care encouraged;verbalization of feelings encouraged;positive reinforcement provided;goal setting facilitated Family/Support System Care presence promoted;support provided -- Goal: Identify Related Risk Factors and Signs and Symptoms Related risk factors and signs and symptoms are identified upon initiation of Human Response Clinical Practice Guideline (CPG) Outcome: Ongoing (Interventions Implemented as Appropriate) 05/03/16 1312 Anxiety Related Risk Factors (Anxiety) coping ineffective Signs and Symptoms (Anxiety) apprehension/being worried;hypervigilance;nervousness/tension/restlessness;perceived dangers/fears Goal: Reduction/Resolution Patient will demonstrate the desired outcomes by discharge/transition of care. Outcome: Ongoing (Interventions Implemented as Appropriate) 05/04/16 2335 Anxiety (Adult) Reduction/Resolution making progress toward outcome Problem: Coping, Compromised Individual (Adult,Obstetrics,Pediatric) Intervention: Support/Enhance Coping Strategies 05/03/16 2245 05/04/16 1215 Coping/Psychosocial Interventions Environmental Support calm environment promoted;personal routine supported -- Coping Strategies Supportive Measures -- self-reflection promoted;self-care encouraged;verbalization of feelings encouraged;positive reinforcement provided;goal setting facilitated Family/Support System Care presence promoted;support provided -- Goal: Identify Related Risk Factors and Signs and Symptoms Related risk factors and signs and symptoms are identified upon initiation of Human Response Clinical Practice Guideline (CPG) Outcome: Ongoing (Interventions Implemented as Appropriate) 05/02/16 2244 Coping, Compromised Individual Coping, Compromised Individual: Related Risk Factors health status change;perceived loss of control Signs and Symptoms (Compromised Individual Coping) coping mechanisms inappropriate;eating habits change;destructive/aggressive behavior;inability to meet basic needs Goal: Effective Coping Patient will demonstrate the desired outcomes by discharge/transition of care. Outcome: Ongoing (Interventions Implemented as Appropriate) 05/04/16 1215 Coping, Compromised Individual (Adult,Obstetrics,Pediatric) Effective Coping making progress toward outcome * Plan of Care - Kirsitn Vallejo RN - 05/04/2016 12:30 PM EST Problem: Patient Care Overview Goal: Plan of Care Review 05/04/16 1215 Coping/Psychosocial Plan Of Care Reviewed With patient Plan of Care Review Progress progress toward functional goals is gradual OUTCOME EVALUATION NOTE: OUTCOME SUMMARY: Patient reports she slept better last night with the higher dose of seroquel. She rates her feelings of anxiety at a 6/10 with 10 being the worst. She continues to report feeling very frightened of leaving her room. She states the Propranolol is the only medication she feels helps her anxiety. MD made aware and increased the dose. She set a goal with this rn [facility] today[facility] sit for a little bit while the other patients were in group. [facility], I'm too scared! I've peed myself because I'm too scared! Patient was noted to have urinated in her pants. She returned to her room and changed her clothes. She was very tearful. She was given prn ativan for her anxiety with some reported relief. She also set a goal to eat more today and did eat 50% of her meals. She was given positive reinforcement. She is looking forward to a visit from her aunt and uncle this afternoon. She denies any thoughts of harming herself. Will continue to encourage participation. PLAN MOVING FORWARD: Medications as ordered. Encourage milieu participation. INDIVIDUALIZED FALL PREVENTION INTERVENTIONS: Patient-specific fall risk factors per assessment: [current deficits]: See fall risk flowsheet Assistance [level of assistance required for transfers and ambulation]: Independent Supervision [direct monitoring required during toileting and ADLs]: Independent Surveillance [continuous indirect monitoring]: 30 min checks Patient-specific fall prevention interventions for sensory deficits provided, if applicable: [X] No CPG GOAL OUTCOME EVALUATION: Goal: Fall Prevention-Safe Patient Handling 05/02/16224305/03/16 224 Restraint Interventions Safety Promotion/Fall Prevention -- fall prevention program maintained;nonskid shoes/slippers when out of bed;safety round/check completed Musculoskeletal Interventions Muscle Strengthening activity/mobility promoted -- Positioning Body Position -- independent Activity and Safety Assistive Device -- None Daily Care Interventions Self-Care Promotion -- BADL personal routines maintained Goal: Infection Control 05/03/16224405/04/16 1215 Coping Strategies Supportive Measures -- self-reflection promoted;self-care encouraged;verbalization of feelings encouraged;positive reinforcement provided;goal setting facilitated Safety Interventions Isolation Precautions standard precautions maintained -- Infection Prevention rest/sleep promoted;environmental surveillance performed -- Goal: Discharge Needs Assessment 05/02/16224305/03/162244 Discharge Needs Assessment Concerns To Be Addressed -- mental health concerns;coping/stress concerns Readmission Within The Last 30 Days -- no previous admission in last 30 days Provider Choice List(s) Given no -- Equipment Needed After Discharge -- none Discharge Disposition -- home or self-care Activity/Self Care Review of Systems Equipment Currently Used at Home -- none Current Health Outpatient/Agency/Support Group Needs -- outpatient psychiatric care (specify) Anticipated Changes Related to Illness -- none Living Environment Transportation Available -- family or friend will provide Goal: Interdisciplinary Rounds/Family Conf 05/03/16 1312 Interdisciplinary Rounds/Family Conf Participants nursing Problem: Anxiety (Adult) Goal: Identify Related Risk Factors and Signs and Symptoms Related risk factors and signs and symptoms are identified upon initiation of Human Response Clinical Practice Guideline (CPG) 05/03/16 1312 Anxiety Related Risk Factors (Anxiety) coping ineffective Signs and Symptoms (Anxiety) apprehension/being worried;hypervigilance;nervousness/tension/restlessness;perceived dangers/fears Goal: Reduction/Resolution Patient will demonstrate the desired outcomes by discharge/transition of care. 05/03/162244 Anxiety (Adult) Reduction/Resolution making progress toward outcome Problem: Coping, Compromised Individual (Adult,Obstetrics,Pediatric) Goal: Effective Coping Patient will demonstrate the desired outcomes by discharge/transition of care. 05/04/16 1215 Coping, Compromised Individual (Adult,Obstetrics,Pediatric) Effective Coping making progress toward outcome * Plan of Care - Rosi Condon RN - 05/03/2016 11:00 PM EST Problem: Patient Care Overview Goal: Plan of Care Review Outcome: Revised Date Met: 05/03/16 05/03/162244 Coping/Psychosocial Plan Of Care Reviewed With patient Plan of Care Review Progress improving OUTCOME EVALUATION NOTE: OUTCOME SUMMARY: Pt in darkened room all evening. She refuses to come out of room to get phone to make a phone call or for any other reason. She started crying loudly when this was suggested saying, you are a mean nurse, I want Kirstin back. Rapport developed with pt. Asked pt to verbalize fears, cannot. She hold head under covers at times or wears sunglasses. She has a flat, tearful affect. She speaks in a child-like voice and adds an extra a before sentences. Appetite very poor. Medicated for anxiety with no verbalized relief, but asked when she could have them again. Pt's Mom and Aunt came, pt ate about 50% of her dinner and is drinking water adequately. Does not remember last BM, but does not feel uncomf ortable. Sat in chair in room for a total of 1 hour. Pt more engaging after company left. Complaintwith all meds. Medicated for stomach, head and shoulder pain with some relief. PLAN MOVING FORWARD: Encourage pt to come out of room and at least out of bed to chair, monitor moods and behavior, meetw/ treatment team to deelop plan. INDIVIDUALIZED FALL PREVENTION INTERVENTIONS: Patient-specific fall risk factors per assessment: [current deficits]: 2 nd dx Assistance [level of assistance required for transfers and ambulation]: None, independent, but needs cuing and much encouragement/ Supervision [direct monitoring required during toileting and ADLs]: none Surveillance [continuous indirect monitoring]: q 30 minute checks, purposeful rounding Patient-specific fall prevention interventions for sensory deficits provided, if applicable: Routine fall precautions CPG GOAL OUTCOME EVALUATION: Goal: Individualization & Mutuality Outcome: Ongoing (Interventions Implemented as Appropriate) 05/02/162014 Mutuality/Individual Preferences What Anxieties, Fears or Concerns Do You Have About Your Health or Care? I get very anxious. What Questions Do You Have About Your Health or Care? medication and if I can bring my dog. What Information Would Help Us Give You More Personalized Care? Please do not knowck, loud noise and lot of people ,make me anxious. Goal: Fall Prevention-Safe Patient Handling 05/02/16 2244 05/03/16 1612 05/03/16 2245 Restraint Interventions Safety Promotion/Fall Prevention -- -- fall prevention program maintained;nonskid shoes/slippers when out of bed;safety round/check completed Musculoskeletal Interventions Muscle Strengthening activity/mobility promoted -- -- Positioning Body Position -- -- independent Activity and Safety Assistive Device -- -- None Daily Care Interventions Self-Care Promotion -- -- BADL personal routines maintained Puga Fall Risk History of Falling -- 25 -- Secondary Diagnosis -- 15 -- Ambulatory Aids -- 0 -- Intravenous Therapy/Heparin/Saline Lock -- 0 -- Gait/Transferring -- 0 -- Mental Status -- 0 -- Score -- 40 -- OTHER Puga Fall Risk -- Med -- Goal: Infection Control Outcome: Ongoing (Interventions Implemented as Appropriate) 05/03/162244 Coping Strategies Supportive Measures active listening utilized;self-care encouraged;self- responsibility promoted Safety Interventions Isolation Precautions standard precautions maintained Infection Prevention rest/sleep promoted;environmental surveillance performed Goal: Discharge Needs Assessment Outcome: Ongoing (Interventions Implemented as Appropriate) 05/02/16224305/03/162244 Discharge Needs Assessment Concerns To Be Addressed -- mental health concerns;coping/stress concerns Readmission Within The Last 30 Days -- no previous admission in last 30 days Provider Choice List(s) Given no -- Equipment Needed After Discharge -- none Discharge Disposition -- home or self-care Activity/Self Care Review of Systems Equipment Currently Used at Home -- none Current Health Outpatient/Agency/Support Group Needs -- outpatient psychiatric care (specify) Anticipated Changes Related to Illness -- none Living Environment Transportation Available -- family or friend will provide Problem: Anxiety (Adult) Intervention: Promote Anxiety Reduction/Resolution 05/03/162244 Cognitive Interventions Sensory Stimulation Regulation auditory stimulation minimized;quiet environment promoted Coping/Psychosocial Interventions Environmental Support calm environment promoted;personal routine supported Coping Strategies Supportive Measures active listening utilized;self-care encouraged;self- responsibility promoted Family/Support System Care presence promoted;support provided Goal: Identify Related Risk Factors and Signs and Symptoms Related risk factors and signs and symptoms are identified upon initiation of Human Response Clinical Practice Guideline (CPG) Outcome: Ongoing (Interventions Implemented as Appropriate) 05/03/16 1312 Anxiety Related Risk Factors (Anxiety) coping ineffective Signs and Symptoms (Anxiety) apprehension/being worried;hypervigilance;nervousness/tension/restlessness;perceived dangers/fears Goal: Reduction/Resolution Patient will demonstrate the desired outcomes by discharge/transition of care. Outcome: Ongoing (Interventions Implemented as Appropriate) 05/03/162244 Anxiety (Adult) Reduction/Resolution making progress toward outcome * Plan of Care - Kirstin Vallejo RN - 05/03/2016 1:25 PM EST Problem: Patient Care Overview Goal: Plan of Care Review 05/03/16 1312 Coping/Psychosocial Plan Of Care Reviewed With patient Plan of Care Review Progress progress towards functional goals is fair OUTCOME EVALUATION NOTE: OUTCOME SUMMARY: Patient tearful this morning. Reports she did not sleep well last night, awakening frequently throughout the night. Noted to be talking in a child-like voice. Reports her anxiety is high related to her agoraphobia. At one point, patient began to cry out loudly and hyperventilate because her door was not fully latched, The door! The door! I can't feel my face! Patient was redirected and reassured of her safety. Prn seroquel given for anxiety. Patient encouraged to deep breathe and was able to calm herself. Patient was encouraged to come out of her room later in the morning and try sitting inthe milieu. She was able to stand outside her door for a few minutes but cried loudly during this time and then retreated back to her room sobbing. She took prn Ativan for her anxiety. She has been educated in behavioral activation and discouraged from isolating in her room. Will continue to encourage patient to engage in the program here. PLAN MOVING FORWARD: Medications as ordered. Offer prn's as needed. Encourage participation INDIVIDUALIZED FALL PREVENTION INTERVENTIONS: Patient-specific fall risk factors per assessment: [current deficits]: see fall risk flowsheet Assistance [level of assistance required for transfers and ambulation]: Independent Supervision [direct monitoring required during toileting and ADLs]: Independent Surveillance [continuous indirect monitoring]: 30 min checks Patient-specific fall prevention interventions for sensory deficits provided, if applicable: [X] No CPG GOAL OUTCOME EVALUATION: Goal: Fall Prevention-Safe Patient Handling 05/02/16 2244 Restraint Interventions Safety Promotion/Fall Prevention fall prevention program maintained;nonskid shoes/slippers when outof bed;safety round/check completed Musculoskeletal Interventions Muscle Strengthening activity/mobility promoted Positioning Body Position independent Activity and Safety Assistive Device None Daily Care Interventions Self-Care Promotion independence encouraged Goal: Infection Control 05/02/16 2244 Coping Strategies Supportive Measures relaxation techniques promoted Safety Interventions Isolation Precautions standard precautions maintained Infection Prevention environmental surveillance performed;rest/sleep promoted;single patient room provided Goal: Discharge Needs Assessment 05/02/16201005/02/162243 Discharge Needs Assessment Concerns To Be Addressed -- coping/stress concerns Readmission Within The Last 30 Days -- no previous admission in last 30 days Provider Choice List(s) Given -- no Equipment Needed After Discharge -- none Activity/Self Care Review of Systems Equipment Currently Used at Home -- none Living Environment Transportation Available car -- Goal: Interdisciplinary Rounds/Family Conf 05/03/16 1312 Interdisciplinary Rounds/Family Conf Participants nursing Problem: Anxiety (Adult) Goal: Identify Related Risk Factors and Signs and Symptoms Related risk factors and signs and symptoms are identified upon initiation of Human Response Clinical Practice Guideline (CPG) 05/03/16 1312 Anxiety Related Risk Factors (Anxiety) coping ineffective Signs and Symptoms (Anxiety) apprehension/being worried;hypervigilance;nervousness/tension/restlessness;perceived dangers/fears Goal: Reduction/Resolution Patient will demonstrate the desired outcomes by discharge/transition of care. 05/03/16 1312 Anxiety (Adult) Reduction/Resolution making progress toward outcome Problem: Coping, Compromised Individual (Adult,Obstetrics,Pediatric) Goal: Effective Coping Patient will demonstrate the desired outcomes by discharge/transition of care. 05/03/16 1312 Coping, Compromised Individual (Adult,Obstetrics,Pediatric) Effective Coping making progress toward outcome * Plan of Care - Nori Foster RN - 05/02/2016 11:07 PM EST Problem: Patient Care Overview Goal: Plan of Care Review Outcome: Ongoing (Interventions Implemented as Appropriate) 05/02/162243 Coping/Psychosocial Plan Of Care Reviewed With patient OUTCOME EVALUATION NOTE: OUTCOME SUMMARY: Pt admitted to 222 from ED. Pt was transported to the unit via stretcher accompanied by her mother and her aunt. Pt comes here with marked behavior changes d/t extreme anxiety and panic attacks that developed after she had few concussions on her head. Pt was cooperative during admission, took shower while her mother was here. Pt requested less stimulation and less light as possible. She wears dark glasses. She has a bathroom light on. Pt worries that all these stimulation makes her anxious. Pt denies depression and also refused to PHQ 9. She stated that she is not depressed and all the symptoms are due to her anxiety. Pt speech is clear but slow and soft, pt takes time to write and scribbles. Pt was complaint with medication. Pt doesn't want bed alarm as it will startle her and make her anxious. She has a tap rodriguez and promises that she will use it for assistance. PLAN MOVING FORWARD: Decrease stimulation, medication adjustment, unit/room orientation. INDIVIDUALIZED FALL PREVENTION INTERVENTIONS: Patient-specific fall risk factors per assessment: [current deficits]: High fall risk Assistance [level of assistance required for transfers and ambulation]: indp with assist Supervision [direct monitoring required during toileting and ADLs]: RTU Surveillance [continuous indirect monitoring]: q 30 min checks Patient-specific fall prevention interventions for sensory deficits provided, if applicable: [X] Yes CPG GOAL OUTCOME EVALUATION: Goal: Individualization & Mutuality Outcome: Ongoing (Interventions Implemented as Appropriate) 05/02/162014 Mutuality/Individual Preferences What Anxieties, Fears or Concerns Do You Have About Your Health or Care? I get very anxious. What Questions Do You Have About Your Health or Care? medication and if I can bring my dog. What Information Would Help Us Give You More Personalized Care? Please do not knowck, loud noise and lot of people ,make me anxious. Goal: Fall Prevention-Safe Patient Handling Outcome: Ongoing (Interventions Implemented as Appropriate) 05/02/16195405/02/162243 Restraint Interventions Safety Promotion/Fall Prevention -- fall prevention program maintained;nonskid shoes/slippers when out of bed;safety round/check completed Musculoskeletal Interventions Muscle Strengthening -- activity/mobility promoted Positioning Body Position -- independent Activity and Safety Assistive Device -- None Daily Care Interventions Self-Care Promotion -- independence encouraged Puga Fall Risk History of Falling 25 -- Secondary Diagnosis 15 -- Ambulatory Aids 0 -- Intravenous Therapy/Heparin/Saline Lock 0 -- Gait/Transferring 10 -- Mental Status 0 -- Score 50 -- OTHER Puga Fall Risk High -- Goal: Infection Control Outcome: Ongoing (Interventions Implemented as Appropriate) 05/02/162243 Coping Strategies Supportive Measures relaxation techniques promoted Safety Interventions Isolation Precautions standard precautions maintained Infection Prevention environmental surveillance performed;rest/sleep promoted;single patient room provided Goal: Discharge Needs Assessment Outcome: Ongoing (Interventions Implemented as Appropriate) 05/02/162243 Discharge Needs Assessment Concerns To Be Addressed coping/stress concerns Readmission Within The Last 30 Days no previous admission in last 30 days Provider Choice List(s) Given no Equipment Needed After Discharge none Activity/Self Care Review of Systems Equipment Currently Used at Home none Goal: Interdisciplinary Rounds/Family Conf Outcome: Ongoing (Interventions Implemented as Appropriate) 05/02/162243 Interdisciplinary Rounds/Family Conf Participants nursing;patient;physician Problem: Anxiety (Adult) Intervention: Promote Anxiety Reduction/Resolution 05/02/162243 Cognitive Interventions Sensory Stimulation Regulation lighting decreased;quiet environment promoted Coping/Psychosocial Interventions Environmental Support calm environment promoted;comfort object encouraged Coping Strategies Family/Support System Care self-care encouraged Goal: Identify Related Risk Factors and Signs and Symptoms Related risk factors and signs and symptoms are identified upon initiation of Human Response Clinical Practice Guideline (CPG) Outcome: Ongoing (Interventions Implemented as Appropriate) 05/02/162243 Anxiety Related Risk Factors (Anxiety) coping ineffective;environment change Signs and Symptoms (Anxiety) distress/panic;hypervigilance;sleep disturbance;voice quivering/tremor/pitch changes Goal: Reduction/Resolution Patient will demonstrate the desired outcomes by discharge/transition of care. Outcome: Ongoing (Interventions Implemented as Appropriate) 05/02/162243 Anxiety (Adult) Reduction/Resolution unable to achieve outcome Problem: Coping, Compromised Individual (Adult,Obstetrics,Pediatric) Goal: Identify Related Risk Factors and Signs and Symptoms Related risk factors and signs and symptoms are identified upon initiation of Human Response Clinical Practice Guideline (CPG) Outcome: Ongoing (Interventions Implemented as Appropriate) 05/02/162243 Coping, Compromised Individual Coping, Compromised Individual: Related Risk Factors health status change;perceived loss of control Signs and Symptoms (Compromised Individual Coping) coping mechanisms inappropriate;eating habits change;destructive/aggressive behavior;inability to meet basic needs Goal: Effective Coping Patient will demonstrate the desired outcomes by discharge/transition of care. Outcome: Ongoing (Interventions Implemented as Appropriate) 05/02/162243 Coping, Compromised Individual (Adult,Obstetrics,Pediatric) Effective Coping unable to achieve outcome documented in this encounter Plan of Treatment Not on file documented as of this encounter Visit Diagnoses Diagnosis Post concussive syndrome Postconcussion syndrome Unspecified personality disorder documented in this encounter Admitting Diagnoses Diagnosis Post concussive syndrome Postconcussion syndrome documented in this encounter Administered Medications Inactive Administered Medications - up to 3 most recent administrations Medication Order MAR Action Action Date Dose Rate Site acetaminophen (TYLENOL) tablet 650 mg 650 mg, Oral, EVERY 4 HOURS PRN, Starting on Thu05/02/16 at 1857, Until Thu05/08/16 at 1426, Pain, Maximum dose of acetaminophen is 4000 mg from all sources in 24 hours., Routine Given 05/06/2016 10:22 AM EST 650 mg Given 05/05/2016 4:20 PM EST 650 mg Given 05/04/2016 8:34 PM EST 650 mg chlorproMAZINE (THORAZINE) tablet 25 mg 25 mg, Oral, 2 TIMES DAILY PRN, Starting on Thu05/06/16 at 1244, Until Thu05/08/16 at 1426, Nausea, Anxiety, Headache, Routine Given 05/08/2016 12:11 AM EST 25 mg Given 05/07/2016 12:38 PM EST 25 mg Given 05/06/2016 8:52 PM EST 25 mg chlorproMAZINE (THORAZINE) tablet 50 mg 50 mg, Oral, EVERY EVENING, First dose on Thu05/06/16 at 1700, Until Discontinued, Routine Given 05/06/2016 6:10 PM EST 50 mg chlorproMAZINE (THORAZINE) tablet 50 mg 50 mg, Oral, NIGHTLY, First dose (after last modification) on Thu05/07/16 at 2100, Until Discontinued, Routine Given 05/07/2016 9:08 PM EST 50 mg gabapentin (NEURONTIN) capsule 200 mg 200 mg, Oral, 2 TIMES DAILY PRN, Starting on Thu05/02/16 at 1857, Until Thu05/08/16 at 1426, Anxiety, Routine Given 05/03/2016 2:17 PM EST 200 mg Given 05/03/2016 1:44 AM EST 200 mg ibuprofen (ADVIL;MOTRIN) tablet 600 mg 600 mg, Oral, EVERY 6 HOURS PRN, Starting on Thu05/02/16 at 1857, Until Thu05/08/16 at 1426, Pain, Administer orally with milk or food to minimize GI irritation. Maximum dose of 3200 mg from all sources in 24 hours, Routine Given 05/04/2016 2:26 PM EST 600 mg LORazepam (ATIVAN) tablet 1 mg 1 mg, Oral, 2 TIMES DAILY PRN, Starting on Thu05/02/16 at 1857, Until Thu05/08/16 at 1426, Anxiety, Routine Given 05/08/2016 8:35 AM EST 1 mg Given 05/07/2016 6:12 PM EST 1 mg Given 05/07/2016 11:28 AM EST 1 mg propranolol (INDERAL) tablet 10 mg 10 mg, Oral, 3 TIMES DAILY, First dose (after last modification) on Thu05/04/16 at 1500, Until Discontinued, Hold for SBP less than 90, or DBP less than 60, Routine Given 05/08/2016 8:35 AM EST 10 mg Given 05/07/2016 9:09 PM EST 10 mg Given 05/07/2016 2:06 PM EST 10 mg propranolol (INDERAL) tablet 5 mg 5 mg, Oral, 2 TIMES DAILY, First dose on Thu05/02/16 at 2000, Until Discontinued, Hold for SBP less than 90, or DBP less than 60, Routine Given 05/04/2016 8: 31 AM EST 5 mg Given 05/03/2016 10:02 PM EST 5 mg Given 05/03/2016 9:53 AM EST 5 mg QUEtiapine (SEROquel) tablet 100 mg 100 mg, Oral, NIGHTLY, First dose (after last modification) on Thu05/03/16 at 2100, Until Discontinued, Routine Given 05/05/2016 8:59 PM EST 100 mg Given 05/04/2016 8:34 PM EST 100 mg Given 05/03/2016 10:01 PM EST 100 mg QUEtiapine (SEROquel) tablet 50 mg 50 mg, Oral, 2 TIMES DAILY PRN, Starting on Thu05/02/16 at 1857, Until Thu05/06/16 at 1248, Agitation, Routine Given 05/03/2016 10:04 AM EST 50 mg QUEtiapine (SEROquel) tablet 50 mg 50 mg, Oral, NIGHTLY, First dose on Thu05/02/16 at 2100, Until Discontinued, Routine Given 05/02/2016 8:36 PM EST 50 mg documented in this encounter Active and Recently Administered Medications Times are shown in EST. Scheduled Medication Order 05/06/2016 05/07/2016 05/08/2016 chlorproMAZINE (THORAZINE) tablet 50 mg (CANCELED) 50 mg, Oral, EVERY EVENING, First dose on Thu05/06/16 at 1700, Until Discontinued, Routine 1810 (Given - Provider: Argenis Price RN) chlorproMAZINE (THORAZINE) tablet 50 mg 50 mg, Oral, NIGHTLY, First dose (after last modification) on Thu05/07/16 at 2100, Until Discontinued, Routine 210 (Given - Provider: Argenis Price RN) propranolol (INDERAL) tablet 10 mg 10 mg, Oral, 3 TIMES DAILY, First dose (after last modification) on Thu05/04/16 at 1500, Until Discontinued, Hold for SBP less than 90, or DBP less than 60, Routine 0843 (Given - Provider: Jes Zamarripa RN)1456 (Given - Provider: Jes Zamarripa RN)2006 (Given - Provider: Argenis Price RN) 0938 (Given - Provider: Jes Zamarripa RN)1406 (Given - Provider: Jes Zamarripa RN)2109 (Given - Provider: Argenis Price RN) 0835 (Given - Provider: Caroline Beck RN) PRN Medication Order 05/06/2016 05/07/2016 05/08/2016 acetaminophen (TYLENOL) tablet 650 mg 650 mg, Oral, EVERY 4 HOURS PRN, Starting on Thu05/02/16 at 1857, Until Marilia 05/08/16 at 1426, Pain, Maximum dose of acetaminophen is 4000 mg from all sources in 24 hours., Routine 1022 (Given - Provider: Jes Zamarripa RN) chlorproMAZINE (THORAZINE) tablet 25 mg 25 mg, Oral, 2 TIMES DAILY PRN, Starting on Thu05/06/16 at 1244, Until Marilia 05/08/16 at 1426, Nausea, Anxiety, Headache, Routine 2051 (Given - Provider: Argenis Price RN) 1238 (Given - Provider: Jes Zamarripa RN) 0011 (Given - Provider: Jes Zepeda RN) gabapentin (NEURONTIN) capsule 200 mg 200 mg, Oral, 2 TIMES DAILY PRN, Starting on Thu05/02/16 at 1857, Until Marilia 05/08/16 at 1426, Anxiety, Routine ibuprofen (ADVIL;MOTRIN) tablet 600 mg 600 mg, Oral, EVERY 6 HOURS PRN, Starting on Thu05/02/16 at 1857, Until Marilia 05/08/16 at 1426, Pain, Administer orally with milk or food to minimize GI irritation. Maximum dose of 3200 mg from all sources in 24 hours, Routine LORazepam (ATIVAN) tablet 1 mg 1 mg, Oral, 2 TIMES DAILY PRN, Starting on Thu05/02/16 at 1857, Until Marilia 05/08/16 at 1426, Anxiety, Routine 1330 (Given - Provider: Jes Zamarripa, LYDIA)2006 (Given - Provider: Argenis Price RN) 1128 (Given - Provider: Jes Zamarripa RN)181 (Given - Provider: Argenis Price RN) 0835 (Given - Provider: Caroline Beck RN) melatonin tablet 3 mg 3 mg, Oral, NIGHTLY PRN, Starting on Thu05/02/16 at 1857, Until Marilia 05/08/16 at 1426, Sleep, Routine documented in this encounter Care Teams Tool Shaper Setup Operator Relationship Specialty Start Date End Date Mao Hale MD [address] [place] [address] PCP - General Internal Medicine 05/07/16 05/29/16 documented as of this encounter
--- OUTSIDE RECORDS SUMMARY | 2023-11-03 15:56 | XMS_ITS | Encounter Summary ---
[facility] [place] [address] Care Team Providers Care Ammonia Worker Name Role Phone Unavailable Primary Care Provider Unavailabl e Encounter Details Date Type Department Care Team (Late st Contact Info) Description 06/24/2010 10:15 AM EDT Office [place] [address] Heron Palm MD [facility] [place] [address] Discharge Disposition: Home Social History Tobacco Use Types Packs/Day Years Used Date Smoking Tobacco: Never Assessed Sex and Gender Information Value Date Recorded Sex Assigned at Not on file Gender Identity Not on file Sexual Orientation Not on file documented as of this encounter Plan of Treatment Not on file documented as of this encounter Procedures Procedure Name Priority Date/Time Associated Diagnosis Comments EKG 12-LEAD Routine 06/24/2010 11:41 AM EDT documented in this encounter Results * EKG 12-LEAD (06/24/2010 11:41 AM EDT) Ventricular rate 69 BPM MUSE SYSTEM Atrial Rate 69 BPM MUSE SYSTEM P-R Interval 114 ms MUSE SYSTEM QRS Duration 100 ms MUSE SYSTEM Q-T Interval 388 ms MUSE SYSTEM QTC Calculated (Bezet) 415 ms MUSE SYSTEM Calculated P [place] 49 degrees MUSE SYSTEM Calculated R [place] 85 degrees MUSE SYSTEM Calculated T [place] 66 degrees MUSE SYSTEM INTERPRETATION Normal sinus rhythm with sinus arrhythmia Normal ECG No previous ECGs available Confirmed by MD AUNDREA, TRI ([id number]) on 06/24/2010 5:02:34 PM MUSE SYSTEM 06/24/2010 11:4 1 AM EDT 06/24/2010 5:02 PM EDT Unknown ECG ORDERABLES MUSE SYSTEM documented in this encounter Visit Diagnoses Not on filedocumented in this encounter
--- OUTSIDE RECORDS SUMMARY | 2023-11-03 15:56 | XMS_ITS | Encounter Summary ---
Author Organization [facility] Address [address] [place] [address] Care Team Providers Care Loan Consultant Name Role Phone Jeniffer Angulo APRN Primary Care Provider [phone] Encounter Details Date Type Department Care Team (Late st Contact Info) Description 09/27/2023 Encounter [facility] Intensive Care Unit [address] [place] [address] Social History Tobacco Use Types Packs/Day Years Used Date Smoking Tobacco: Former Cigarettes Passive Smoke Exposure: Current Comments:1 PPD x 7 yrs Alcohol Use Standard Drinks/Week Comments Yes 0 (1 standard drink = 0.6 oz pur e alcohol) 1-2 4-5 d/wk [facility] Utilities Answer Date Recorded In the past 12 months has e electric, gas, oil, or water company [...] any time in the past 12 m onths, were you homeless or living in a care home (including now)? No 09/04/2023 Interpersonal Safety Answer [...] on file documented as of this encounter Functional Status Functional Status Response Date of [...] (5 years old or older) No 09/04/2023 documented as of this encounter Miscellaneous Notes * Note - Kristel Wellington RN - 09/27/2023 0937 EDT This note was copied from a baby's chart. Note: Met with Vishal at bedside while James sleeping on mom. Past History: Pumped for her now 6 yo son who was born at 32 wks and never would latch, struggled to bottlefeed, he had exclusive Bm diet x 11 mo. With her daughter she was able to breastfeed 8-9 months but also had problems with oversupply and mastitis recurring. Current Hx: Presently using Spectra S2 with 24 mm flanges, is regulating her pump interval to avoidhyperlactation or mastitis. While in car has been using hand pump but described problems with system. Provided new hand pump parts for use in transit. James has not yet ever gone to breast, discussed promoting skin to skin and fostering attempts at direct BF, lick & nuzzle, encouraged mom pump prior to DBF to mimic early NB experiences with low volumes.Parents verbalized they are OK with bottles being offered to James is he is actively demonstrating feeding cues or frustrated, otherwise would like to work on breast feeding when mom present. Reviewed NICU info packet materials, encouraged tracking 24 hr volumes periodically to quantify supply. Discussed storage & transportation of EBM, instructed to freeze if approaching 48 hr time limit. Pump kit for use when in NICU provided, aware of pump rooms & supplies locations. [place] well experienced with mastitis and knows symptoms, strategies to avoid.Consent for Donor human milk granted as alternative supplementation. Plan to continue to follow & assist as able. Kerwin Wellington RN IBCLC. documented in this encounter Plan of Treatment Not on file documented as of this encounter Visit Diagnoses Not on filedocumented in this encounter Care Teams Loan Consultant Relationship Specialty Start Date End Date Jeniffer Angulo APRN [address] [place] [address] PCP - General 03/27/17 documented as of this encounter
--- OUTSIDE RECORDS SUMMARY | 2023-11-03 15:56 | XMS_ITS | Encounter Summary ---
Author Organization [facility] Address [facility] [place] [address] Care Team Providers Care Software Test Developer Name Role Phone Unavailable Primary Care Provider Unavailabl e Encounter Details Date Type Department Care Team (Late st Contact Info) Description 04/01/2016 - 04/01/2016 11:59 PM EST Hospital Encounter [place] [address] [facility] [place] [address] Pain Discharge Disposition: Home Social History Tobacco Use Types Packs/Day Years Used Date Smoking Tobacco: Never Smokeless Tobacco: Never Alcohol Use Standard Drinks/Week Comments No 0 (1 standard drink = 0.6 oz pur e alcohol) Sex and Gender Information Value Date Recorded Sex Assigned at Not on file Gender Identity Not on file Sexual Orientation Not on file documented as of this encounter Medications at Time of Discharge Medication Sig Dispensed Refills Start Date End Date NORETHINDRONE-ETHINYL ESTRAD (NORTREL , 28, ORAL) Take by mouth. Reported on 06/05/2016 06/05/2016 sumatriptan succinate (SUMAVEL DOSEPRO) 6 mg/0.5 mL NfIj Inject subcutaneously. Reported on 06/05/2016 06/05/2016 sertraline (ZOLOFT) 25 mg tablet Take 25 mg by mouth daily. 05/01/2016 MELATONIN, BULK, MISC by Misc.(Non-Drug; Combo Route) route. Reported on 06/05/2016 06/05/2016 nortriptyline (PAMELOR) 75 mg capsuleIndications:Rashad campos(784.0) Take 1 capsule by mouth nightly. Must be seen for F/U before more refills will be sent. If doing well, may obtain med from PCP instead. 30 capsule 2 01/13/2011 05/01/2016 documented as of this encounter Plan of Treatment Not on file documented as of this encounter Procedures Procedure Name Priority Date/Time Associated Diagnosis Comments FILM LIBRARY STORAGE ONLY CT HEAD Routine 04/01/2016 12:00 AM EST Pain documented in this encounter Results * Film Library- Storage Only CT Head (04/01/2016 12:00 AM EST) Narrative LIZETH RALPH - 04/10/2016 8:03 PM EST This exam is for storage only and is auto-finalizing. Umm Pacheco MD IMG FILM LIBRARY O RDERABLES [place] documented in this encounter Visit Diagnoses Diagnosis Pain Generalized pain documented in this encounter
--- OUTSIDE RECORDS SUMMARY | 2023-11-03 15:56 | XMS_ITS | Encounter Summary ---
[place] [address] Care Team Providers Care Panelbeater Name Role Phone Unavailable Primary Care Provider Unavailabl e Reason for Visit * Reason Comments Right Hip Pain Encounter Details Date Type Department Care Team (Late st Contact Info) Description 02/28/2011 8:45 AM EST Office Visit [place] [id number] Edmar Shaikh MD [address] [place] [address] Hip pain, right (Primary Dx) Discharge Disposition: Home Social History Tobacco Use [...] Sign Reading Time Taken Comments Blood Pressure 104/70 02/28/2011 9:25 AM EST Pulse - - Temperature - - Respiratory Rate - - Oxygen Saturation - - Inhaled Oxygen Concentration - - Weight 65.1 kg (143 lb 8 oz) 02/28/2011 9:25 AM EST Height 171.5 cm (5' 7.5) 02/28/2011 9:25 AM EST Body Mass Index 22.14 02/28/2011 9:25 AM EST Body Mass Index Percentile 61.72% 02/28/2011 9:2 5 AM EST Growth Chart: [facility] (Girls, 2- 20 Years) documented in this encounter Progress Notes * Heron Ivan PA - 02/28/2011 9:50 AM EST Subjective: Patient ID: Hasmukh Young is a 15 y.o. female. HPI Comments: This is a very pleasant 15 year old young lady here with her mother regarding her right hip. 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 She relays about 1 year of right groin pain without specific injury. She relays pain with hip flexion, debbie reproducible snap in the anterior of the hip. It has not stopped her from participating in her activities, but she is pushing through pain. The pain is becoming more consistent and increasing in intensity. She was seen by an orthopedist in [facility], there was concern for a labral tear, an MRAwas ordered and she is here to review that study. She is otherwise very healthy. She is hoping to pursue a career in dance, and is going to [employer] to study dance next year. Review of Systems Constitutional: Negative. Musculoskeletal: Negative. Skin: Negative. Objective: Physical Exam Constitutional: She is oriented to person, place, and time and well-developed, well-nourished, and in no distress. Neurological: She is alert and oriented to person, place, and time. Gait normal. Skin: Skin is warm and dry. Psychiatric: Mood and affect normal. Right Hip Exam Comments: Comes in with an antalgic gait. Skin is w/d without lesions. Able to do a straight leg raise with some difficulty. Significant groin pain with resisted hip flexion. Flexion to 130 with samantha at the extremes. IR to 30 with pain. ER to 55 with pain. Pain in particular with flexion, adduction,and IR. Normal sensation and motor function distally. Neurologic Exam Mental Status Oriented to person, place, and time. Gait, Coordination, and Reflexes Gait Gait: normal Assessment and Plan: A: Right hip pain, iliopsoas tendonopathy P: Dr Shaikh, Dr Daniels and myself all had the opportunity to evaluate the pt. Her exam seems most consistent with an iliopsoas irritation. We do not see an obvious labral tear. We discussed treatment options at length. The next step from our standpoint would be to think about a CT guided iliopsoas tendon injection followed by a period of rest. She would like to try and get through her senior year sport seasons. I offered PT, she will hold off for now. They will talk it over as a family and let us know if and when they want to proceed. Attending Note. I have seen the patient, I have reviewed the care plan as described, and I agree (with any changes or additions outlined below). Edmar Shaikh MD documented in this encounter Plan of Treatment Not on file documented as of this encounter Visit Diagnoses Diagnosis Hip pain, right- Primary Pain in joint, pelvic region and thigh documented in this encounter
--- OUTSIDE RECORDS SUMMARY | 2023-11-03 15:56 | XMS_ITS | Encounter Summary ---
[facility] [place] [address] Care Team Providers Care Medical Aide Name Role Phone Unavailable Primary Care Provider Unavailabl e Encounter Details Date Type Department Care Team (Late st Contact Info) Description 02/17/2011 10:50 AM EST - 02/17/2011 11:59 PM EST Hospital [place] [id number] Social History Tobacco Use Types Packs/Day Years [...] Notes * Miscellaneous - Provider, Scanning - 03/04/2011 7:52 AM EST * Miscellaneous - Provider, Scanning - 02/21/2011 8:46 AM EST documented in this encounter Plan of Treatment Not on file documented as of this encounter Procedures Procedure Name Priority Date/Time Associated Diagnosis Comments MRI HIP WITH CONTRAST Routine 02/17/2011 11:46 AM EST documented in this encounter Results * MRI HIP WITH CONTRAST (02/17/2011 11:46 AM EST) Anatomical Region Laterality Modality Hip Magnetic Resonan ce 02/17/2011 11:4 6 AM EST Impressions 02/17/2011 6:17 PM EST IMPRESSION: 1. ??Contrast does extend through a relatively large defect in the anterior capsule into the overlying soft tissues, paralleling the right iliopsoas tendon and muscle. ??Significance of this finding is uncertain. ??I believe this represents a synovial cyst. ??The relationship to the patient's clinical presentation with hip snapping is uncertain, but the finding does suggest that the cyst could be related to abnormal wear, caused by the iliopsoas tendon, or perhaps instead the presence of this defect and the associated fluid collection may be altering the normal movement of the iliopsoas muscle. Narrative 02/17/2011 6:17 PM EST MRI ARTHROGRAM OF THE RIGHT HIP, 02/17/11: CLINICAL HISTORY: ??Pain with flexing and hip snapping. ?? TECHNIQUE: ??The study consists of large field of view images of the entire pelvis, as well as smaller field of view higher resolution images of the right hip. ??Series of T1-weighted and T2-weighted images were obtained. ??All imaging was performed following the intraarticular administration of contrast at the right hip. ?? Contrast is seen distending the right hip joint. ??There is also contrast extending through a defect in the anterior capsule and passing superiorly along the course of the iliopsoas muscle and tendon. ??I do not see a tear. ??The margins of the joint capsule appear smooth and I suspect that this represents a synovial cyst. ??This extension of contrast into the superior tissues was not seen at the time of initial injection and presumably filled after the patient walked to the MRI scanner. ??Given the patient's history of hip snapping, I believe this finding may be related to presentation with hip snapping, though the absolute significance of the finding is not clear to me. ??I do not see high-signal intensity within the iliopsoas muscle or tendon. ??The tendon insertion is normal in appearance. ?? No other abnormal collections are identified. ??Small amount of fluid signal intensity is present overlying the greater trochanters bilaterally, suggesting a mild degree of inflammation at the gluteal insertions. ??No tendinopathy or tear is seen. ??No soft tissue masses are seen. ??There is a degree of sclerosis at the inferior aspect of the sacroiliac joints, more so on the right than left. ??The significance of this finding is uncertain. ??I do not see marrow edema, erosions, or other evidence of sacroiliac inflammatory disease. ??The adjacent soft tissues are normal. ?? At the right hip, no filling defect is identified. ??Again noted is formation of the acetabulum and femoral head appears to be normal. ??I do not see findings suggestive of impingement. ??The ligamentum teres is normal in appearance. ??I do not see a chondral defect or a tear in the labrum. ?? Procedure Note Heron Serrano MD - 02/17/2011 MRI ARTHROGRAM OF THE RIGHT HIP, 02/17/11: CLINICAL HISTORY: Pain with flexing and hip snapping. TECHNIQUE: The study consists of large field of view images of the entire pelvis, as well as smaller field of view higher resolution images of theright hip. Series of T1-weighted and T2-weighted images were obtained. Allimaging was performed following the intraarticular administration of contrast atthe right hip. Contrast is seen distending the right hip joint. There is also contrast extending through a defect in the anterior capsule and passing superiorlyalong the course of the iliopsoas muscle and tendon. I do not see a tear. The margins of the joint capsule appear smooth and I suspect that thisrepresents a synovial cyst. This extension of contrast into the superior tissues wasnot seen at the time of initial injection and presumably filled after thepatient walked to the MRI scanner. Given the patient's history of hip snapping, I believe this finding may be related to presentation with hip snapping,though the absolute significance of the finding is not clear to me. I do not see high-signal intensity within the iliopsoas muscle or tendon. The tendon insertion is normal in appearance. No other abnormal collections are identified. Small amount of fluidsignal intensity is present overlying the greater trochanters bilaterally,suggesting a mild degree of inflammation at the gluteal insertions. No tendinopathyor tear is seen. No soft tissue masses are seen. There is a degree ofsclerosis at the inferior aspect of the sacroiliac joints, more so on the right than left. The significance of this finding is uncertain. I do not see marrow edema, erosions, or other evidence of sacroiliac inflammatory disease.The adjacent soft tissues are normal. At the right hip, no filling defect is identified. Again noted isformation of the acetabulum and femoral head appears to be normal. I do not seefindings suggestive of impingement. The ligamentum teres is normal in appearance.I do not see a chondral defect or a tear in the labrum. IMPRESSION IMPRESSION: 1. Contrast does extend through a relatively large defect in the anterior capsule into the overlying soft tissues, paralleling the right iliopsoastendon and muscle. Significance of this finding is uncertain. I believe this represents a synovial cyst. The relationship to the patient's clinical presentation with hip snapping is uncertain, but the finding does suggestthat the cyst could be related to abnormal wear, caused by the iliopsoastendon, or perhaps instead the presence of this defect and the associated fluidcollection may be altering the normal movement of the iliopsoas muscle. Jeff OLGUIN MRI ORDERABLES documented in this encounter Visit Diagnoses Not on filedocumented in this encounter
--- OUTSIDE RECORDS SUMMARY | 2023-11-03 15:56 | XMS_ITS | Encounter Summary ---
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 Goal: Infection Control Outcome: Ongoing (Interventions Implemented as Appropriate) 05/01/162240 Safety Interventions Isolation Precautions standard precautions maintained Infection Prevention rest/sleep promoted;single patient room provided Coping Strategies Supportive Measures active listening utilized;verbalization of feelings encouraged;positive reinforcement provided Goal: Discharge Needs Assessment Outcome: Ongoing (Interventions Implemented as Appropriate) 05/01/162240 Discharge Needs Assessment Concerns To Be Addressed coping/stress concerns;adjustment to diagnosis/illness concerns Readmission Within The Last 30 Days no previous admission in last 30 days Equipment Needed After Discharge none Discharge Facility/Level Of Care Needs independent living facility Current Discharge Risk physical impairment;psychiatric illness Discharge Disposition still a patient Current Health Outpatient/Agency/Support Group Needs outpatient psychiatric care (specify);other (see comments) (Independent/home ) Anticipated Changes Related to Illness none Activity/Self Care Review of Systems Equipment Currently Used at Home none Living Environment Transportation Available family or friend will provide Goal: Interdisciplinary Rounds/Family Conf Outcome: Ongoing (Interventions Implemented as Appropriate) 05/01/162240 Interdisciplinary Rounds/Family Conf Participants patient;nursing;physician Problem: Anxiety (Adult) Goal: Identify Related Risk Factors and Signs and Symptoms Related risk factors and signs and symptoms are identified upon initiation of Human Response Clinical Practice Guideline (CPG) Outcome: Ongoing (Interventions Implemented as Appropriate) 05/01/161 Anxiety Related Risk Factors (Anxiety) coping ineffective;health status change;loss of control Signs and Symptoms (Anxiety) body language alterations;nervousness/tension/restlessness;physical complaints/symptoms;sense of impending doom Goal: Reduction/Resolution Patient will demonstrate the desired outcomes by discharge/transition of care. Outcome: Ongoing (Interventions Implemented as Appropriate) 05/01/162240 Anxiety (Adult) Reduction/Resolution making progress toward outcome documented in this encounter Plan of Treatment Not on file documented as of this encounter Visit Diagnoses Diagnosis Panic disorder with agoraphobia Agoraphobia with panic disorder documented in this encounter Admitting Diagnoses Diagnosis Panic disorder with agoraphobia Agoraphobia with panic disorder documented in this encounter Administered Medications Inactive Administered Medications - up to 3 most recent administrations Medication Order MAR Action Action Date Dose Rate Site acetaminophen (TYLENOL) tablet 650 mg 650 mg, Oral, EVERY 4 HOURS PRN, Starting on Thu05/01/16 at 2026, Until Thu05/02/16 at 0020, Pain, Maximum dose of acetaminophen is 4000 mg from all sources in 24 hours., Routine ibuprofen (ADVIL;MOTRIN) tablet 800 mg 800 mg, Oral, EVERY 6 HOURS PRN, Starting on Thu05/01/16 at 2028, Until Thu05/02/16 at 0020, Pain, Administer orally with milk or food to minimize GI irritation , STAT Given 05/01/2016 8:42 PM EST 800 mg LORazepam (ATIVAN) tablet 1 mg 1 mg, Oral, EVERY 6 HOURS PRN, Starting on Marilia 05/01/16 at 1830, Until Thu05/02/16 at 0020, Anxiety, Routine Given 05/01/2016 7:09 PM EST 1 mg prazosin (MINIPRESS) capsule 1 mg 1 mg, Oral, NIGHTLY, First dose on Marilia 05/01/16 at 2200, Until Discontinued, Routine documented in this encounter Active and Recently Administered Medications Times are shown in EST. Scheduled Medication Order 04/30/2016 05/01/2016 05/02/2016 prazosin (MINIPRESS) capsule 1 mg 1 mg, Oral, NIGHTLY, First dose on Marilia 05/01/16 at 2200, Until Discontinued, Routine 2200 (Due) PRN Medication Order 04/30/2016 05/01/2016 05/02/2016 acetaminophen (TYLENOL) tablet 650 mg 650 mg, Oral, EVERY 4 HOURS PRN, Starting on Thu05/01/16 at 2026, Until Thu05/02/16 at 0020, Pain, Maximum dose of acetaminophen is 4000 mg from all sources in 24 hours., Routine ibuprofen (ADVIL;MOTRIN) tablet 800 mg 800 mg, Oral, EVERY 6 HOURS PRN, Starting on Marilia 05/01/16 at 202, Until Thu05/02/16 at 0020, Pain, Administer orally with milk or food to minimize GI irritation , STAT 2041 (Given - Provider: Jes Franks RN) LORazepam (ATIVAN) tablet 1 mg 1 mg, Oral, EVERY 6 HOURS PRN, Starting on Marilia 05/01/16 at 1830, Until Thu05/02/16 at 0020, Anxiety, Routine 190 (Given - Provider: Jes Franks RN) documented in this encounter Care Teams Hearing Specialist Relationship Specialty Start Date End Date None None PCP - General 05/01/16 05/02/16 documented as of this encounter
--- OUTSIDE RECORDS SUMMARY | 2023-11-03 15:56 | XMS_ITS | Encounter Summary ---
[place] [address] Care Team Providers Care Double End Chucking Machine Operator Name Role Phone Unavailable Primary Care Provider Unavailabl e Encounter Details Date Type Department Care Team (Late st Contact Info) Description 12/23/2010 Orders [place] [address] Edmar Shaikh MD [address] [place] [address] Social History Tobacco Use Types Packs/Day Years [...] Associated Diagnosis Comments FILM LIBRARY STORAGE ONLY DX HIP Routine 12/23/2010 8:52 AM EDT documented in this encounter Results * FILM LIBRARY- STORAGE ONLY DX HIP (12/23/2010 8:52 AM EDT) Anatomical Region Laterality Modality Other 12/23/2010 8:52 AM EDT Narrative 05/19/2013 11:44 PM EST This is a non-reportable exam. Procedure Note Wilber Gonzales - 05/19/2013 This is a non-reportable exam. Edmar Shaikh MD [facility] [place]M LIBRARY ORD ERABLES documented in this encounter Visit Diagnoses Not on filedocumented in this encounter
--- OUTSIDE RECORDS SUMMARY | 2023-11-03 15:56 | XMS_ITS | Encounter Summary ---
Author Organization [facility] [place] [address] Care Team Providers Care Hand Candle Dipper Name Role Phone None Primary Care Provider Unavailabl e Reason for Visit * Reason Onset Date Comments Prior Authorization 05/02/2016 [employer] 05/01 PSY IPI Encounter Details Date Type Department Care Team (Late st Contact Info) Description 05/02/2016 [place] [phone] Solomon Zayas MD [place] [address] Prior Authorization ([employer] 05/01/16 PSY IPI) Social History Tobacco Use Types [...] Notes * Telephone Encounter - DeweyOrly - 05/02/2016 11:40 AM EST Patient has a [employer] plan with a TPA of [employer] [place].. auths through [facility] [phone]. A# [id number] PSP IPI 05/01/16-05/02/[address] [facility] / Eriberto Adams @ [phone] [phone]. documented in this encounter Plan of Treatment Not on file documented as of this encounter Visit Diagnoses Not on filedocumented in this encounter Care Teams Hand Candle Dipper Relationship Specialty Start Date End Date None None PCP - General 05/01/16 05/02/16 documented as of this encounter
--- OUTSIDE RECORDS SUMMARY | 2023-11-03 15:56 | XMS_ITS | Encounter Summary ---
[facility] [place] [address] Care Team Providers Care Trout Farmer Name Role Phone Unavailable Primary Care Provider Unavailabl e Reason for Visit * Reason Onset Date Comments Medication Refill 01/13/2011 Encounter Details Date Type Department Care Team (Late st Contact Info) Description 01/13/2011 Refill Pediatric [place] [address] Herbert Puga MD [facility] [address] [place] [address] Headache (Primary Dx) Social History Tobacco Use Types Packs/Day Years Used Date Smoking Tobacco: Never Assessed Sex and Gender Information Value Date Recorded Sex Assigned at Not on file Gender Identity Not on file Sexual Orientation Not on file documented as of this encounter Miscellaneous Notes * Telephone Encounter - Montserrat Mccray RN - 01/13/2011 12:01 PM EDT Pediatric Neurology, [place] This patient was last seen by Dr. Heron Palm on 06/24/10. I sent in a refill today for Nortriptyline 75 mg nightly, however I asked for the patient to either: 1. Call for a F/U appointment so we may continue prescribing the Nortriptyline OR 2. Obtain the medication in the future from the PCP if he is doing well on this stable dose. I will mail this letter to the family and also send it to the Primary Care Physician. Montserrat Mccray RN BSN Nurse Clinician Pediatric Nephrology/Neurology documented in this encounter Plan of Treatment Not on file documented as of this encounter Visit Diagnoses Diagnosis Headache(784.0)- Primary Headache documented in this encounter
--- OUTSIDE RECORDS SUMMARY | 2023-11-03 15:57 | XMS_ITS | Encounter Summary ---
Author Organization [facility] Address [address] [place] [address] Care Team Providers Care Steel Die Printer Name Role Phone KevJeniffer bowie Cordell KEN Primary Care Provider [phone] Reason for Visit * Auth/Cert (Routine) Specialty Diagnoses / Procedures [facility] Referred To Contact Diagnoses Preeclampsia, severe, third trimester Preeclampsia with severe features. Referral ID Status Reason Start Date Expiration Date Visits Re quested Visits Authorized [id number] 1 1 Encounter Details Date Type Department Care Team (Late st Contact Info) Description 09/22/2023 7:18 EDT Anesthesia Event [facility] [address] [place], [place] [id number] Tomy Bustos DO [address] [facility], [facility] [address] [place] [address] Mariano Prescott [address] [place] [id number] Anesthesia Record Procedure Summary Procedure Name Responsible Anesthesiologist Anesthesia Start Time Anesthesia Stop Time SECTION (Abdomen) Tomy Bustos DO 09/22/23 0718 09/22/23 0857 Events Date Time Event Comment 09/22/2023 0718 An Start The patient was re-evaluated immediately before moderate or deep sedation use, before anesthesia induction, or before the anesthesia procedure. 0718 An Start Data 0720 An Induction The patient was reevaluated immediately before moderate or deep sedation use and before anesthesia induction. 0725 An Intubation 0725 Anesthesia Ready 0727 Uterine Incision 0729 Baby Delivered 0731 NG/OG Inserted 0834 An Extubation 0841 An Data Art SpO2 monitor no t accurate 0845 an stop data 0857 Handoff to RN I completed my handoff to the receiving nurse during which we: 1. Identified the patient 2. Identified the responsible provider 3. Reviewed the pertinent medical history 4. Discussed the surgical course 5. Reviewed intra-op anesthesia management and issues during anesthesia 6. Set expectations for post-procedure period 7. Allowed opportunity for questions and acknowledgement of understanding. 0857 An Stop Meds Name Total ondansetron (PF) (ZOFRAN) injection 4 mg propOFol (DIPRIVAN) injection 150 mg oxytocin in lactated ringers (PITOCIN) i nfusion 30 units/500 mL 17,794.17 raissa-units fentanyl citrate (PF) injection 100 mcg ceFAZolin injection 2,000 mg magnesium sulfate in water 40 gram/1,000 mL (4 %) IVPB pre-mix 3.3 g oxytocin vial 6 Units azithromycin (ZITHROMAX) 500 mg in dextrose 5% (D5W) 250 mL IVPB 500 mg acetaminophen 10 mg/ml 100 mL infusion 1 ,000 mg succinylcholine 20 mg/mL vial 160 mg ketOROLAC injection 15 mg BUPivacaine (PF) (MARCAINE) 30 mL in sod ium chloride (PF) 30 mL 60 mL lactated ringers (LR) infusion 1,000 mL * Agents Name Insp Sevoflurane Exp Sevoflurane O2 N2O Air * Blood No blood administrations on file. Lines, Drains, and Airways Type Details Placement Removal Wound 09/22/23; 0815; Inci concetta; Lower, Midline; Abdomen; N 09/22/23 0815 by Kylah Shirley, LYDIA Peripheral IV 09/21/23; 1212; 07/0 04/22; 18; 1.25; B [place] Introcan; Left, Posterior; Forearm; Inserted by RN, Ultrasound Guided; 1; 2% Chlorhexidine with IPA; 09/24/23; 0930 09/21/23 1212 by Nishant Dewey RN 09/24/23 0930 by Violeta Holman RN Urethral Catheter 09/22/23; 0721; 10 m l; Yes; 09/24/23 (removed on previous shift by other RN at unknown time); 0954 (removed on previous shift by other RN at unknown time) 09/22/23 0721 by Breonna Viera RN 09/24/23 0954 by Violeta Holman RN Non-Surgical Airway 09/22/23; 0742 (marco bernal via procedure documentation); 09/22/23; 0834 09/22/23 0742 by Mariano Prescott 09/22/23 0834 by Mariano Prescott documented in this encounter Social History Tobacco Use Types Packs/Day Years Used Date Smoking Tobacco: Former Cigarettes Passive Smoke Exposure: Current Comments:1 PPD x 7 yrs Alcohol Use Standard Drinks/Week Comments Yes 0 (1 standard drink = 0.6 oz pur e alcohol) 1-2 4-5 d/wk [facility] Utilities Answer Date Recorded In the past [...] any time in the past [facility], were you homeless or living in a senior living (including now)? No 09/04/2023 Interpersonal Safety Answer Date Record ed How often does anyone, inclu ding family, hit, punch or physically hurt you? 09/20/2023 How often does anyone, inclu ding family, insult, scream, curse or threaten to [...] No 09/04/2023 documented as of this encounter OR Notes * Anesthesia Postprocedure Evaluation - Mariano Prescott - 09/22/2023 0857 EDT Patient: Hasmukh Young Vital signs were reviewed with the recovery nurse. Complete vitals history is available in the Epicflowsheets. Vitals Value Taken Time BP 109/74 09/22/23 0851 Temp 09/22/23 0857 Resp 13 09/22/23 0857 Pulse From Oximetry 81 BPM 09/22/23 0857 SpO2 99 % 09/22/23 0857 Heart Rate 83 BPM 09/22/23 0857 Vitals shown include unfiled device data. Last Pain Score - Numeric Pain Level (Scale 1-10): 0 Type of Anesthesia - general Anesthesia Post Evaluation Post-procedure vitals reviewed and are stable. Level of consciousness: awake Temperature status: normothermia and patient returned to pre-procedure baseline Respiratory status: airway patent, stable, room air and nasal cannula Cardiovascular status: stable Hydration status: adequate Nausea/Vomiting: none Pain management: adequate Post-Op Assessment: patient tolerated procedure well with no complications and patient satisfied with anesthesia care Patient participation: able to participate Disposition: inpatient Anesthesia Complications: No apparent anesthesia complications * Anesthesia Procedure Notes - Mariano Prescott - 09/22/2023 0836 EDTAssociated Order(s): Peripheral Block - Single Shot Peripheral Block - Single Shot Patient location during procedure: OR Start time: 09/22/2023 8:25 End time: 09/22/2023 8:34 Staffing Performed: resident/AGRICULTURE ENGINEER/AA Anesthesiologist: Tomy Bustos DO Resident/AGRICULTURE ENGINEER: Mariano Prescott Performed by: Mariano Prescott Authorized by: Tomy Bustos DO Preanesthetic Checklist Completed: patient identified, IV checked, risks and benefits discussed, surgical consent, monitorsand equipment checked, pre-op evaluation and timeout performed Peripheral Block Prep: ChloraPrep, skin prep agent completely dried prior to procedure, sterile gloves and mask used Patient monitoring: BP cuff, heart rate, continuous pulse ox and cardiac cath technologist Patient sedation: general anesthesia Block type: TAP [...] fractionated injection: yes Ultrasound Equipment Machine used: INNJOY Travel M7 sterile probe cover Probe did NOT contact body fluids/broken skin. Standard cleaning with recommended disinfectant at surgeon's request, for post-op pain management * Anesthesia Procedure Notes - Mariano Prescott - 09/22/2023 0739 EDTAssociated Order(s): Airway Airway Date/Time: 09/22/2023 7:26 Urgency: elective Airway not difficult General Information and Staff Patient location during procedure: OR Anesthesiologist: Tomy Bustos DO Resident/AGRICULTURE ENGINEER: Mariano Prescott Performed: resident/AGRICULTURE ENGINEER/AA Performed by: Mariano Prescott Authorized by: Tomy Bustos DO Indications and Patient Condition Indications for airway [...] clear on visualization. Easy ETT placement, atraumatic. * Anesthesia Preprocedure Evaluation - Mariano Prescott - 09/22/2023 0717 EDT Anesthesia Preprocedure Evaluation Patient Medical History, including Anesthesia History reviewed. Chart and Nursing Notes reviewed, including NPO status and Medication History. Additional ROS/History Findings: 28 y.o. now at 34w0d admitted for PEC w/ SF. Former smoker (2.5py), gallstones, migraines. Multiple drug allergies including codeine (Difficulty breathing. Has had morphine and oxycodone since this reaction without issue), promethazine/reglan/trimethobenzamide (all make her restless/agitated). >4 METs, no recent illness. - Pulmonary disease: Former smoker (2.5py) - Cardiac disease: PEC - No prior back procedures - No known kidney or liver disease, no bleeding disorders - No known personal or family hx of anesthesia complications Evaluation of Risk Factors for Respiratory Depression after Long-acting Neuraxial Opioid (in case patient requires delivery) THIS patient's PATIENT risk factors for respiratory depression include: STOP BANG Score =/> 3.Of note, the patient's STOP BANG score includes: S-Snoring frequently and loud enough to hear through door, P-Pressure (Hypertension), and B-BMI =/> 35 Kg/M2. STOP BANG score must be =/> 3 in order to acquire 1 risk factor for respiratory depression. PERIOPERATIVELY, this patient COULD acquire ADDITIONAL risk factors for respiratory depression. IF THIS PATIENT RECEIVES Long-Acting Neuraxial Opioid for post- analgesia, we ANTICIPATE her monitoring schedule to be: Level 1 = every 2H RR + POSS score for 0-12 hours after delivery. The FINAL PLAN for Level of Respiratory and Sedation Monitoring IS DETERMINED POSTOPERATIVELY. Evaluation for benefit of additional neuraxial or regional interventions: Patients with risk factors for increased post- pain AND/OR postoperative respiratory event with administration of systemic opioids may benefit from additional neuraxial or regional anesthetictechniques. This patient's risk factors include: None. Because she does not have risk factors, the following ADDITIONAL neuraxial/regional anesthetic technique(s) are recommended/planned IF she undergoes DELIVERY: Standard long acting neuraxial opioid +. Also, consider additional adjuncts: Standard Acetaminophen scheduled postop, initiated in the OR (subject to change based on patient clinical condition) Health Support Provides baseline and guidance for intra- target and minimum SBP goals at the time of Pre-anesthetic Consultation. Baseline Blood Pressure: Systolic 110-130 & Diastolic 50-70 TARGET Intra- Systolic Blood Pressure (Middle of Baseline Systolic BP range): 120 Recommended MINIMUM Intra- SBP: SBP > 100 mm Hg Recommended MINIMUM MAP (based on Patient's minimum baseline SBP and DBP = DBP + 1/3(SBP-DBP): 70 (ALL patients with maternal HTN) AFTER Delivery, target BP to minimize maternal sxs of hypotension (lightheadedness, N/V) Patient with Risk Factors (RF) for Acidosis (1 RF increases risk, 2+ RF markedly increases risk, especially with BMI >38) BMI >/= 38: No Maternal HTN: Yes Suspected Placental Insufficiency (FGR, IUGR, UA Flow reversal, Failed non- stress test, Late FHR Decelerations, other): Yes Other: No Particularly for patients with 2+ RF for Acidosis, minimize time from spinal injection to incision, proactive/aggressive BP support, notify OB if hypotensive event occurs (SBP decreases below Recommended Minimum intra- SBP or MAP. Then, OB to expedite delivery. Allergies Allergen Reactions Codeine Anaphylaxis Other - See Comments Itching, Swelling and Rash Styrofoam Phenergan [Promethazine] Reglan [Metoclopramide Hcl] Trimethobenzamide Patient is now. (+) pre-eclampsia Review of Systems Past Medical History: Diagnosis Date Broken wrist Depression Glaucoma possible suspect per patient Headache(784.0) UTI (urinary tract infection) Wears glasses Relevant Problems No relevant active problems Physical Exam Airway Mallampati: III TM distance: >3 FB Neck ROM: full Cardiovascular - normal exam Rhythm: regular Rate: normal (-) murmur Dental - normal exam Pulmonary - normal exam Breath sounds clear to auscultation (-) wheezes Abdominal Other findings: Gravid Anesthesia Plan ASA 2 Anesthesia plan and risks discussed. Informed consent obtained from patient. Use of blood products discussed with patient who consented to blood products. Specific risks discussed were bleeding, headache, incomplete block, nerve damage, vomiting, nausea and infection. Code status discussed? No The preoperative history and physical which was performed within 30 days of this procedure, has been reviewed and the clinically appropriate elements of the physical examination have been repeated. There are no changes to the documented history and physical or, if so, such changes are documented inthis note PAT Note Notes from 08/23/23 through 09/22/23 No notes of this type exist for this encounter. documented in this encounter Plan of Treatment Not on file documented as of this encounter Procedures Procedure Name Priority Date/Time Associated Diagnosis Comments ANESTHESIA PERIPHERAL BLOCK - SINGLE SHOT Routine 09/22/2023 8:36 EDT ANESTHESIA PERIPHERAL BLOCK - SINGLE SHOT Routine 09/22/2023 8:36 EDT ANESTHESIA PERIPHERAL BLOCK - SINGLE SHOT Routine 09/22/2023 8:36 EDT ANESTHESIA PERIPHERAL BLOCK - SINGLE SHOT Routine 09/22/2023 8:36 EDT ANESTHESIA INTUBATION Routine 09/22/2023 7:26 EDT ANESTHESIA INTUBATION Routine 09/22/2023 7:26 EDT documented in this encounter Results * HC - TAP BLOCK BILATERAL BY INJECTION(S), HC - US GUIDANCE NEEDLE PLACEMENT IMG S&I, HC - US VASC ACCESS SITS VSL PATENCY NDL ENTRY, MD ANESTHESIA NON- TIMED PLACEHOLDER (09/22/2023 8:36 EDT) Mariano Fiore - 09/22/2023 8:36 EDT Mariano Prescott ? 09/22/2023 ??8:37 Peripheral Block - Single Shot Patient location during procedure: OR Start time: 09/22/2023 8:25 End time: 09/22/2023 8:34 Staffing Performed: resident/AGRICULTURE ENGINEER/AA Anesthesiologist: Tomy Bustos DO Resident/AGRICULTURE ENGINEER: Mariano Prescott Performed by: Mariano Prescott Authorized by: Tomy Bustos DO ?? Preanesthetic Checklist Completed: patient identified, IV checked, risks and benefits discussed, surgical consent, monitors and equipment checked, pre-op evaluation and timeout performed Peripheral Block Prep: ChloraPrep, skin prep agent completely dried prior to procedure, sterile gloves and mask used Patient monitoring: BP cuff, heart rate, continuous pulse ox and cardiac cath technologist Patient sedation: general anesthesia Block type: TAP [...] fractionated injection: yes Ultrasound Equipment Machine used: INNJOY Travel M7 sterile probe cover Probe did NOT contact body fluids/broken skin. Standard cleaning with recommended disinfectant at surgeon's request, for post-op pain management Tomy Bustos DO ANESTHESIA ORDERABLE S * MD AN ELECTIVE ENDOTRACHEAL AIRWAY, MD ANESTHESIA NON-TIMED PLACEHOLDER (09/22/2023 7:26 EDT) Mariano Fiore - 09/22/2023 7:26 EDT Mariano rPescott ? 09/22/2023 ??7:42 Airway Date/Time: 09/22/2023 7:26 Urgency: elective Airway not difficult General Information and Staff Patient location during procedure: OR Anesthesiologist: Tomy Bustos DO Resident/AGRICULTURE ENGINEER: Mariano Prescott Performed: resident/AGRICULTURE ENGINEER/AA Performed by: Mariano Prescott Authorized by: Tomy [...] atraumatic. Tomy Bustos DO ANESTHESIA ORDERABLE S documented in this encounter Visit Diagnoses Not on filedocumented in this encounter Administered Medications Inactive Administered Medications - up to 3 most recent administrations Medication Order MAR Action Action Date Dose Rate Site acetaminophen (OFIRMEV) IV solution intravenous, PRN, Starting on Thu09/22/23 at 0745, Until Thu09/22/23 at 0857, Routine, Anesthesia Intraprocedure Given 09/22/2023 7:45 EDT 1,000 mg azithromycin (ZITHROMAX) 500 mg in dextrose 5% (D5W) 250 mL IVPB intravenous, Administer over 60 Minutes, FA IP EQF CONTINUOUS PRN FOR ONE STEP MEDS, Starting on Thu09/22/23 at 0718, Until Thu09/22/23 at 08, Routine, Anesthesia Intraprocedure New Bag 09/22/2023 7:18 EDT 500 mg BUPivacaine (PF) (MARCAINE) 30 mL in sodium chloride (PF) 30 mL ni-neural, FA IP EQF CONTINUOUS PRN FOR ONE STEP MEDS, Starting on Thu09/22/23 at 0830, Until Thu09/22/23 at 0857, Routine, Anesthesia Intraprocedure Bolus 09/22/2023 8:33 EDT 30 mL New Bag 09/22/2023 8:30 EDT 30 mL ceFAZolin (ANCEF) injection intravenous, PRN, Starting on Thu09/22/23 at 0723, Until Thu09/22/23 at 0857, Routine, Anesthesia Intraprocedure Given 09/22/2023 7:23 EDT 2,000 mg fentaNYL citrate (PF) injection intravenous, PRN, Starting on Thu09/22/23 at 0841, Until Thu09/22/23 at 0857, Routine, Anesthesia Intraprocedure Given 09/22/2023 8:55 EDT 50 mcg Given 09/22/2023 8:41 EDT 50 mcg ketOROLAC (TORADOL) injection intravenous, PRN, Starting on Thu09/22/23 at 0806, Until Thu09/22/23 at 0857, Routine, Anesthesia Intraprocedure Given 09/22/2023 8:06 EDT 15 mg lactated ringers (LR) infusion at 25 mL/hr, intravenous, CONTINUOUS, Starting on Thu09/21/23 at 1645, Until Thu09/25/23 at 1610, Routine Rate Documented 09/23/2023 6:00 EDT 25 mL/ hr Rate Documented 09/23/2023 5:00 EDT 25 mL/hr Rate Documented 09/23/2023 4:00 EDT 25 mL/hr magnesium sulfate in water 40 gram/1,000 mL (4 %) IVPB pre-mix 2 g/hr (50 mL/hr), intravenous, CONTINUOUS, Starting on Thu09/21/23 at 1300, Until Thu09/22/23 at 1258, Routine New Bag 09/22/2023 8:59 EDT 2 g/hr 50 mL/hr Continued by Anesthesia 09/22/2023 7:18 EDT 2 g/hr 50 mL/hr Rate Documented 09/22/2023 7:00 EDT 2 g/hr 50 mL/hr ondansetron (PF) (ZOFRAN) injection intravenous, PRN, Starting on Thu09/22/23 at 0804, Until Thu09/22/23 at 0857, Routine, Anesthesia Intraprocedure Given 09/22/2023 8:04 EDT 4 mg oxytocin (PITOCIN) injection intravenous, PRN, Starting on Thu09/22/23 at 0729, Until Thu09/22/23 at 0857, Routine, Anesthesia Intraprocedure Given 09/22/2023 7:32 EDT 3 Units Given 09/22/2023 7:29 EDT 3 Units oxytocin in lactated ringers (PITOCIN) infusion 30 units/500 mL 1-30 raissa-units/min (1-30 mL/hr), intravenous, CONTINUOUS, Starting on Thu09/21/23 at 1700, Until Thu09/22/23 at 2259, Routine Restarted 09/22/2023 8:05 EDT 100 raissa-units/min 100 mL/hr Continued by Anesthesia 09/22/2023 7:29 EDT 350 raissa-unit s/min 350 mL/hr Rate Change-ICU/L&D Only 09/22/2023 6:40 EDT 18 raissa-unit s/min 18 mL/hr propOFol (DIPRIVAN) injection intravenous, PRN, Starting on Thu09/22/23 at 0725, Until Thu09/22/23 at 0857, Routine, Anesthesia Intraprocedure Given 09/22/2023 7:25 EDT 150 mg succinylcholine (ANECTINE) injection intravenous, PRN, Starting on Thu09/22/23 at 0725, Until Thu09/22/23 at 0857, Routine, Anesthesia Intraprocedure Given 09/22/2023 7:25 EDT 160 mg documented in this encounter Orders Medications Ordered That Crow ht Not Have Been Administered Count Last Ordered Date First Ordered Date sugammadex (BRIDION) injection 1 09/22/2023 documented in this encounter Care Teams Steel Die Printer Relationship Specialty Start Date End Date Jeniffer Angulo APRN [address] [place] [address] PCP - General 03/27/17 documented as of this encounter
--- OUTSIDE RECORDS SUMMARY | 2023-11-03 15:57 | XMS_ITS | Encounter Summary ---
Author Organization [facility] Address [address] [place] [address] Care Team Providers Care Beauty Therapist Name Role Phone Kev Jeniffer H SUELLEN Primary Care Provider [phone] Encounter Details Date Type Department Care Team (Late st Contact Info) Description 08/15/2023 Lab Requisition [facility] Pathology & Laboratory Medicine - [facility] [address] [place] [address] Outr Resulting Lab, Provider Social History Tobacco Use Types Packs/Day Years Used Date Smoking Tobacco: Every Day Comments:1 PPD x 7 yrs Alcohol Use Standard Drinks/Week Comments Yes 0 (1 standard drink = 0.6 oz pur e alcohol) 1-2 4-5 d/wk Interpersonal Safety Answer Date Record ed Physically Hurt Never 10/30/2019 Verbally Threaten Not on file 10/30/2019 Sex and Gender Information Value Date Recorded Sex Assigned at Not on file Gender Identity Not on file Sexual Orientation Not on file documented as of this encounter Plan of Treatment Not on file documented as of this encounter Procedures Procedure Name Priority Date/Time Associated Diagnosis Comments OSMOLALITY, URINE Routine 08/14/2023 4:33 EDT documented in this encounter Results * OSMOLALITY, URINE (08/14/2023 4:33 EDT) Osmolality, Urine 298 150 - 1,150 mOsm/kg 08/15/2023 21:55 EDT [facility] Urine URINE / Unknown 08/14/2023 4 :33 EDT 08/15/2023 21:41 EDT Provider Outr Resulting Lab URINALYSIS O RDERABLES [facility] [address] [place], [place] [address] documented in this encounter Visit Diagnoses Not on filedocumented in this encounter Care Teams Beauty Therapist Relationship Specialty Start Date End Date Jeniffer Angulo APRN [address] [place] [address] PCP - General 03/27/17 documented as of this encounter
--- OUTSIDE RECORDS SUMMARY | 2023-11-03 15:57 | XMS_ITS | Encounter Summary ---
Author Organization [facility] Address [address] [place] [address] Care Team Providers Care Finishing Room Operator Name Role Phone Farhad Angulojenna Landa SUELLEN Primary Care Provider [phone] Encounter Details Date Type Department Care Team (Late st Contact Info) Description 08/15/2023 Lab Requisition [facility] Pathology & Laboratory Medicine - [address] [address] Outr Resulting Lab, Provider Social History Tobacco [...] Procedure Name Priority Date/Time Associated Diagnosis Comments UREA NITROGEN, URINE 24HR Routine 08/14/2023 4:33 EDT documented in this encounter Results * (ABNORMAL) UREA NITROGEN, URINE 24HR (08/14/2023 4:33 EDT) Urea Nitrogen, Urine 317 See Note mg/dL 08/15/2023 22:00 EDT [facility] Comment: NOTE: Reference range not established Urea Nitrogen, Urine 24 hr 34(H) 12 - 20 g/24hrs 08/15/2023 22:00 EDT [facility] Urine Volume 10,700 mL 08/15/2023 22:00 EDT [facility] Urine Collection Period 24.0 Hours 08/15/2023 22:00 EDT [facility] Urine 24 HOUR URINE SPECIMEN / Unknown 08/14/2023 4:33 EDT 08/15/2023 21:41 EDT Provider Outr Resulting Lab URINALYSIS O RDERABLES Performing Organization Address City/State/[facility] Co de Phone Number [facility] [address], [place] [address] documented in this encounter Visit Diagnoses Not on filedocumented in this encounter Care Teams Finishing Room Operator Relationship Specialty Start Date End Date Jeniffer Angulo APRN [address] [place] [address] PCP - General 03/27/17 documented as of this encounter
--- OUTSIDE RECORDS SUMMARY | 2023-11-03 15:57 | XMS_ITS | Encounter Summary ---
Author Organization [facility] Address [address] [place] [address] Care Team Providers Care [employer] Name Role Phone Jeniffer Angulo SUELLEN Primary Care Provider [phone] Reason for Visit * Reason Comments Pre-Eclampsia * Auth/Cert (Routine) Specialty Diagnoses / Procedures Referred By [facility] Referred To Contact Diagnoses Preeclampsia, severe, third trimester Preeclampsia with severe features. Referral ID Status Reason Start Date Expiration Date Visits Re quested Visits Authorized [id number] 1 1 Encounter Details Date Type Department Care Team (Late st Contact Info) Description 09/22/2023 7:35 EDT - 09/22/2023 9:35 EDT Surgery [facility] Birthing Center [address], [place] [id number] Jacki Thomson MD [address] [facility] [address] [place] [address] SECTION Surgery Details Date/Time Status Location OR Service Patient Class Case Class Case Type Trauma Case? 09/22/23 0735 Posted [facility] L&D ML&D OR 02 Obstetrics Inpatient Panel 1 Procedure LRB Anes Op Region Wound Class Comments SECTION N/A Abdomen Class II/ [place] an Contaminated Surgeon Surgeon Role Service Panel Jacki Thomson MD Primary Obstetrics 1 Kylah Brice MD Assisting Obstetrics 1 Apolinar Choi MD Assisting Obstetrics 1 documented in this encounter Social History Tobacco Use Types Packs/Day Years Used Date Smoking Tobacco: Former Cigarettes Passive Smoke Exposure: Current Tobacco Cessation:Counseling Given: Not Answered Comments:1 PPD x 7 yrs Alcohol Use Standard Drinks/Week Comments Yes 0 (1 standard drink = 0.6 oz pur e alcohol) 1-2 4-5 d/wk [facility] Utilities Answer Date Recorded In the past [...] any time in the past 12 m [facility], were you homeless or living in a penitentiary (including now)? No 09/04/2023 Interpersonal Safety Answer Date Record ed How often does anyone, inclu jermain family, hit, punch or physically hurt you? 09/20/2023 How often does anyone, erynkody jermain family, insult, scream, curse or threaten to hurt you? 09/20/2023 Sex and Gender Information Value Date Recorded Sex Assigned at Not on file Gender Identity Not on file Sexual Orientation Not on file documented as of this encounter Last Filed Vital Signs Vital Sign Reading Time Taken Comments Blood Pressure 111/79 09/22/2023 0930 EDT Pulse - - Temperature 35.9 ??C (96.6 ??F) 09/22/2023 0852 EDT Respiratory Rate 10 09/22/2023 0930 EDT Oxygen Saturation 99% 09/22/2023 0930 EDT Inhaled Oxygen Concentration - - Weight 107.5 kg (237 lb) 09/21/2023 0829 EDT Height 172.7 cm (5' 8) 09/04/2023 1819 EDT Body Mass Index 36.04 09/04/2023 1819 EDT documented in this encounter Functional Status Functional Status Response [...] No 09/04/2023 documented as of this encounter Discharge Summaries * Apolinar Choi MD - 09/22/2023 0932 EDT Department of ENGINEERING TECHNICAL SPECIALIST Maternal Discharge Summary Information for the patient's : James Young [[id number]] CHACORTAHasmukh Young Maternal Name: Hasmukh Young : 1995 Attending: Odilia Franks MD Admission: 09/04/2023 Discharge: 09/24 Reason for Admission: Principal/Final Diagnosis: Preeclampsia, severe, third trimester Delivery Indications: Maternal Indications for delivery: Preeclampsia with severe features Indication for delivery: Not applicable Principal Procedure: Low Segment Transverse Secondary Procedures: Hospital Course: Hasmukh Young is an 28 y.o. who presented to the hospital [...] En, with Dr. Choi then scrubbing Dr. Brice out after repair of the uterus. See op report for further details. The patient's course was uncomplicated . She obtained good pain control, tolerated a regular diet, was ambulating and voiding independently. Her lochia was within normal limits and she initiated . The patient was subsequently discharged on PPD# 3 with instructions to follow-up for routine care at 2 and 6 weeks. Hospital Problems: Active Hospital Problems Diagnosis Date Noted *Preeclampsia, severe, third trimester 09/05/2023 Postural dizziness with near syncope 09/09/2023 Hx of preeclampsia, prior , currently 09/07/2023 Allergies: Codeine, Other - see comments, Phenergan [promethazine], Reglan [metoclopramide hcl], and Trimethobenzamide Medications during current : Medications Prior to Admission Medication Sig Dispense Refill Last Dose [DISCONTINUED] ARIPiprazole (ABILIFY) 15 mg tablet Take 15 mg by mouth daily. aspirin chewable 81 mg tablet Take 1 Tablet by mouth daily. Takes 81mg and 162mg alternating days 09/03/2023 [DISCONTINUED] hydrOXYzine (ATARAX) 25 mg tablet Take 15 mg by mouth 3 times daily. [DISCONTINUED] lithium (LITHOBID) 300 mg CR tablet Take 300 mg by mouth 3 times daily. [DISCONTINUED] LORazepam (ATIVAN) 0.5 mg tablet Take 1 mg by mouth as needed for Anxiety. [DISCONTINUED] nortriptyline (PAMELOR) 50 mg capsule Take 50 mg by mouth daily. [DISCONTINUED] ONDANSETRON (ZOFRAN ODT ORAL) Take by mouth as needed. [DISCONTINUED] propRANolol (INDERAL) 20 mg tablet Take 30 mg by mouth 3 times daily. [DISCONTINUED] UNABLE TO FIND 25 mg daily. Med Name: Sertralin [DISCONTINUED] UNABLE TO FIND daily. Med Name: BirthControl- Avaine LABOR INFORMATION Labor Onset: Induced Labor Analgesia: None Amniotic Fluid Color: Clear Duration Rupture of Membranes: 0.00 hours 0.00 minutes DELIVERY INFORMATION Low Segment Transverse ; Delivery / Repair Anesthesia: General anesthesia, EBL: Placenta: Method: Spontaneous;Controlled Cord Traction Labor and Delivery Complications and/or Procedures: None INFORMATION Date: 09/22/2023 Time: 728 Weight: Sex: male Apgars: 2 7 9 Clinical Issues Needing Follow-up: Needs BP f/u. Pt will call her BPs in next week. 200mg labetalol rx'd, but hold parametersdiscussed with pt. Contraception Plan: Vasectomy for aprtner Other: Results Pending at Discharge: Test results still pending from this admission Procedure Component Value Units Date/Time SURGICAL PATHOLOGY [[id number]] Collected: 09/22/23 0747 Lab Status: In process Specimen: Tissue from Placenta, third trimester Updated: 09/22/23 0901 Group B Strep PCR [[id number]] Collected: 09/21/23 1551 Lab Status: In process Specimen: Swab from Vaginal/Rectal Updated: 09/21/23 1637 Condition at Discharge: good Discharge Disposition: home Apolinar Choi MD documented in this encounter Discharge Instructions * Discharge Instr - AVS First Page* Chasity Lee MD - 09/25/2023 12:14 EDT Images from the original note were not included. How to take your blood pressure These are instructions for an electronic blood pressure monitor. Be sure you have the proper cuff size for your arm circumference. 1. Sit in a comfortable chair with your back supported and feet flat on the floor. 2. Rest for 5 minutes before taking your blood pressure. 3. Slide the cuff onto your bare upper arm, about 1 inch above your elbow. 4. Make sure the bottom edge of the cuff is about 1/2 inch above the bend of your elbow. 5. Rest your arm comfortably. 6. Press the start button on the electronic monitor. 7. Remain still and quiet while the cuff inflates and deflates. 8. Write down the numbers displayed on the screen. 9. Blood pressure readings have two numbers, for example, 120/80. 10. The first number is your systolic pressure, and the second number is your diastolic pressure. Remember, always follow the specific instructions provided with your electronic blood pressure cuff for the most accurate readings. If you have any concerns or questions, don't hesitate to contact us for guidance. documented in this encounter Medications at Time of Discharge Medication Sig Dispensed Refills Start Date End Date acetaminophen (TYLENOL) 500 mg tablet Take 2 Tablets by mouth every 8 hours as needed for Pain. 09/25/2023 ibuprofen (MOTRIN) 800 mg tablet Take 1 Tablet by mouth every 8 hours as needed for Pain. 09/25/2023 labetalol (NORMODYNE) 200 mg tablet Take 1 Tablet by mouth every 12 hours. 28 Tablet 2 09/25/2023 oxyCODONE (ROXICODONE) 5 mg immediate release tablet Take 1 Tablet by mouth every 4 hours as needed for Pain. Daily Max: 30 mg 8 Tablet 09/25/2023 polyethylene glycol 3350 (MIRALAX) 17 gram packet Take 17 g by mouth daily. 09/26/2023 documented as of this encounter Ordered Prescriptions Prescription Sig Dispensed Refills Start Date End Da te polyethylene glycol 3350 (MIRALAX) 17 gram packet Take 17 g by mouth daily. 09/26/2023 oxyCODONE (ROXICODONE) 5 mg immediate release tablet Take 1 Tablet by mouth every 4 hours as needed for Pain. Daily Max: 30 mg 8 Tablet 09/25/2023 labetalol (NORMODYNE) 200 mg tablet Take 1 Tablet by mouth every 12 hours. 28 Tablet 2 09/25/2023 ibuprofen (MOTRIN) 800 mg tablet Take 1 Tablet by mouth every 8 hours as needed for Pain. 09/25/2023 acetaminophen (TYLENOL) 500 mg tablet Take 2 Tablets by mouth every 8 hours as needed for Pain. 09/25/2023 documented in this encounter Discharge Disposition Disposition Code Departure Means Destination Comment s Home or Self Custodial documented in this encounter Progress Notes * Sandrine Falcon MSW - 09/25/2023 0738 EDT Checked in with parents Hasmukh and Hong at bedside on [address] as they were preparing for discharge.Plan to return home to [place], [place] and visit NICU when able. No questions/needs before d/c. ZAC Moreira will follow during NICU admission, they already met with her this week. SWCM to remain available for psychosocial support, care coordination, and admission/discharge planning. Please reach out as needed. Sandrine Falcon SONIA [phone] ([email or web address] secure chat preferred) * Chasity Lee MD - 09/25/2023 0644 EDT Postoperative Progress Note Chief Complaint: s/p emergency LTCS at 34w1d for breech presentation Subjective: Hasmukh Young is doing really well. She has good pain control at rest, mostly just uncomfortable moving around but is still ambulating when she can. Tolerating PO. Voiding spontaneously.Lochia is minimal now. She hasn't had a bowel movement yet, interested in enema today. Pumping going well, making milk for in NICU. Lives in [facility], hoping for d/c today. Interested in [...] 09/25/23 6:59 Obstetrics & Gynecology, PGY-4 Pager #[phone] * Antonio Silvestre MD - 09/24/2023 9166 EDT Postoperative Progress Note Chief Complaint: s/p emergency [...] discuss - Likely d/c home POD#3-4 ROSALIA VILLARREAL-BJ, MS4 09/24/23 7:01 Attending attestation statement: I saw and examined the patient with the student and independently verified all of the above information. I agree with the findings and plan of care documented in the note. Antonio Silvestre MD * Lillie Bonds, ASSISTANT DIRECTOR OF RESIDENCE LIFE - 09/23/2023 1236 EDT CARO/ZAC Note: I checked in with Hasmukh in her room on M7. I introduced myself and explained my role as NICU CM/SW. Hasmukh let me know that registration called her today- she completed the [place] Medicaid Application for baby and his insurance should be active within the next five days. Hasmukh confirmed that she has WIC and has an appointment scheduled for next Thursday. Hasmukh and SUE will return home when she discharges and will plan to visit several days a week. They live far away ([place], [place]) and have other children at home [...] have any other needs at this time. SONIA Ortiz [phone] Pager: [phone] * Umm Martin RN - 09/23/2023 0725 EDT 7:25 assumed pt care from Rachel. Pt asleep Magnesium gtt completed. 8:13 PRN pain relief and miralax Pt pumping. 10:53 clemens catheter removed; Pt oob to chair Breast pumping 12:33 oob to void Ambulating in mejia 14:08 PRN pain meds Pt pumping. 14:29 transfer B7. * Rachel Spence RN - 09/23/2023 0451 EDT 2300 Assumed care of pt s/p on mag, mag checks stable, partner at bedside. 0100 breast pumping 0400 breast pumping, mag check stable * Apolinar Choi MD - 09/22/2023 1904 EDT L&D Shift Progress Note CC: 28 y.o. admitted for PEC w/ SF dx at 31w4d who is now POD0 s/p emergency LTCS at 34w2d due to breech presentation Shift medical student: Sreedhar Rubio MS4 Shift provider: Jacki Thomson MD Global - Pain: Currently controlled on Tylenol and Ibuprofen in the immediate post-op period - Global: Rh +, GBS pending, treated empirically due to hx of infant with [...] symptoms, no s/sx Mg toxicity. Continue mag andmag checks. Kerwin Rubio MS4 1:06: Pt resting [...] symptoms, no s/sx Mg toxicity. Continue mag andmag checks. Kerwin Rubio MS4 Sreedhar Rubio MS4 09/22/23 4:10 Attending Attestation: I was present with the medical student for the history, exam, and medical decision making documented by him/her. I have personally performed my own physical exam and medical decision making. I have verified and agree with (or, as indicated, have edited) the medical student???s documentation. Pt doing well, 24hr PP magSO4. Normotensive since delivery and still after MagSO4 dc. Apolinar Choi MD * Kylah Hernández, RN - 09/22/2023 1520 EDT 0715- Assumed care P2 pt would was just found to be 6cm and breech. Rapid OR preparation underway. Husb at bedside. Dr Thomson in . T Cat 1. 0717- to OR 1500- pt has been recovering [...] recliner. Pt pumped and got 30ml colostrum whichwas brought to NICU. Pain was 3/10 with transfer. 1800- pt back in bed. Plan to sleep. Mag check stable.Husb at bedside * Jacki Thomson MD - 09/22/2023 1203 EDT Images from the original note were not included. L&D Shift Progress Note CC: 28 y.o. admitted for PEC w/ SF dx at 31w4d who is now POD0 s/p emergency LTCS at 34w2d due to breech presentation Shift resident: Ulises Eugene MD Shift provider: Jacki Thomson MD Global - Pain: Currently controlled on Tylenol and Ibuprofen in the immediate post-op period - Global: Rh +, GBS pending, treated empirically due to hx of infant with [...] En, with Dr. Choi then scrubbing Dr. Brice out after repair of the uterus. See [...] at 75mL/hr. Plan to recheck around 1500. A. Rosado 1640 mg check. Feeling well overall, no headaches/visual changes, no cp/sob/ruq/epigastric pain. CTAB RRR, reflexes 1+, no clonus. UOP 900cc in 2hrs. MD Ulises Stringer MD 09/22/23 12:30 Emergency Medicine Resident, PGY1 * Salinas Calderon MD - 09/21/2023 4595 EDT Images from the original note were [...] CRB placed and misoprostol given. Pitocin started [id number]. 22:47: CRB remains in place, overall doing well with ctx. Cat 1 FHT with 125 baseline, mod francis, posaccels, neg decels. 3-4ctx/10min. Pit at 12. Will plan to continue pitocin per protocol. Mag check: Maternal VSS, most recent BP 128/74 normotensive. Cat I FHT, 2- 3ctx/10 min. States her headache has resolved with tylenol. Denies CP, SOB, vision changes, RUQ pain. DTRs 2+ bilaterally, noclonus, making adequate UOP, 500/2hr. No PEC sx, no signs/sxs Mg toxicity at this time. Continue tomonitor. Kerwin Rubio MS4 and Imelda Calderon MD 0005: CRB out with gentle traction. Cat 1 FHT. 4ctx/10min, pit at 16. Plan to continue to uptitratepitocin. Will check SVE in next few hours, assess for AROM at that time. Imelda Calderon MD 1:13: Pt endorses nausea and dizziness beginning 5 minutes ago. States she feels her ctx less. Denies headaches, vision changes, RUQ pain, SOB. Most recent BP 117/96. [place] 2ctx/10min. Heart RRR, lungs CTAB. Cat II [...] RUQ pain, SOB. Most recent BP 117/96. [place] 2ctx/10min. Heart RRR, lungs CTAB. UOP 150cc/3hr. BPs normotensive. Cat I FHT. No s/sx Mg toxicity at this time. Continue to monitor Kerwin Rubio MS4 0540: SVE 5/60/-2, BBOW. Patient now feeling contractions very strongly all of a sudden, very shakyand more rectal/vaginal pressure. Likely patient has now kicked into labor, was before just mechanically dilated. Cat 1 FHT. Pit at 20. Plan to continue to uptitrate per protocol, recheck in around 4h, can assess for AROM at that time. MD Yumiko. * Marielena Palencia RN - 09/21/20231939 EDT 1924: Assumed care of patient from Oz Baer RN, bedside report. Pt here for IOL for PEC w/ SF at 34w+0d, Rh +, GBS - on PCN for prophylactic d/t prior infection w/ son. Mg infusing at 50ml/hr, LR infusing at 25ml/hr, pitocin infusing at 5ml/hr. Pt has had unmediated births in the past, hoping to go unmediated again. Supportive partner Hong at bedside. Expecting baby boy. 1999: VSS. DTR's +2, no clonus, pt denies [...] reporting pressure, Berto MCLAUGHLIN at bedside, SVE 6/90. Berto requesting US to confirm presenting part. 0710: Berto [place]IN, US at bedside, breech. Pit off. 0712: Terb given per Berto MCLAUGHLIN. 0718: Pt back in OR 2 for stat d/t breech. Report given to Kylah Gao RN. * Sandrine Falcon MSW - 09/21/2023 1125 EDT Checked in with Hasmukh this morning, met partner Hong who was present at bedside. Hasmukh in good spirits, anxiously awaiting further discussion with M this morning regarding IOL planning. Was really [...] Please reach out as needed. SONIA Hernandez [phone] (Epic secure chat preferred) * Rosalia Galvez - 09/21/2023 1121 EDT L&D Shift Progress Note CC: 28 y.o. [...] to monitor. Pitocin started at this time. * Oz Paz RN - 09/21/2023 1110 EDT 11:10 report rec'd from Shiva Gonsales RN. [...] MD Lee 1237: Mag 4g bolus started * Apolinar Choi MD - 09/21/2023 0910 EDT NST Report [id number] Baseline Heart Rate: 145 Accelerations: present Movement: present Decelerations: absent Contractions: rare x 1. Not painful Interpretation: reactive Co-sign Provider (Physician Name): Dr. Jimbo SILVA RN MFM Attending Addendum: I have reviewed the NST above- it is reactive. I agree with the assessment. Apolinar Choi MD * Apolinar Choi MD - 09/21/2023 0612 EDT Antepartum Progress Note Chief Complaint: PEC w [...] BP Patient Position: Semi fowlers) Temp 36.9 ??C(98.4 ??F) (Temporal) Resp 16 Ht 172.7 cm [...] Heart: RR Abdomen: gravid, soft, nontender Extremities: [facility] Labs No new labs. Imaging: Growth completed 09/04,cephalic, anterior placenta, AC 94%ile, EFW 66%ile 2069g Assessment/Plan: 28 y.o. now at 34w0d admitted for PEC w/ SF diagnosed at 31+4, received procardia x1 and magnesium gtt during transport to [facility]. 24 hr urine protein 500mg on admission. Repeat PEC labs and electrolytes have been normal. Possibly some element of chronic hypertension given generally mild description of prior PEC (second delivery without medications, did not require magnesium). Previously on labetalol for BP control which was stopped 09/09 due to consistently normotensive pressures. On 09/17 started on labetalol 200mg BID due to MR Felisha. Repeat pec labs stable. Plan for IOL [...] Tdap on 09/13 - immunizations: none ROSALIA VILLARREAL-BJ, MS4 09/21/23 6:16 Attending Attestation: I was present with the medical student for the history, exam, and medical decision making documented by him/her. I have personally performed my own physical exam and medical decision making. I have verified and agree with (or, as indicated, have edited) the medical student???s documentation. I had a long discussion with [...] normal). Pt tested to 6lb in 2019. Apolinar Choi MD * Varsha Hernandes MD - 09/20/2023 2200 EDT .NST Report NST on [id number] from 2107 to 2140 Baseline Heart Rate: 140 Accelerations: present Movement: present Decelerations: a couple variables Contractions: rare Interpretation: reactive Varsha Hernandes MD 09/21/2023 11:06 * Julieta Segal RN - 09/20/2023 1109 EDT NST Report [id number] Baseline Heart Rate: 145 Accelerations: present Movement: present Decelerations: variable Contractions: x 2 not painful Interpretation: reactive Co-sign Provider (Physician Name): Dr. Michael SILVA RN Associated attestation - Judith Rodriguez MD - 09/20/2023 1142 EDT I have reviewed the heart rate tracing and agree with NST interpretation as above. Judith Rodriguez MD 09/20/2023 11:42 * Judith Rodriguez MD - 09/20/2023 0648 EDT Antepartum Progress Note Chief Complaint: PEC w [...] x1 and magnesium gtt during transport to [facility]. 24 hr urine protein 500mg on admission. [...] s/p Tdap on 09/13 - immunizations: none SHARON BIRD 09/20/23 6:51 Obstetrics & Gynecology, PGY-2 Pager [phone] Attestation: I performed or was present during the chang or critical portions of the visit and participated in the management of the patient on 09/20/2023. I agree with the findings and plan of care documented in the resident's note. Judith Rodriguez MD 09/20/2023 10:26 * Varsha Hernandes MD - 09/19/2023 2200 EDT NST Report [id number] Baseline Heart Rate: 140 Accelerations: present Movement: present Decelerations: variable Contractions: absent Interpretation: reactive mat weaver notified provider Omaira for prolonged accels. Remained on monitor for additional 20 min. Co-sign Provider (Physician Name): Dr. Varsha THURSTON RN MFM attending NST on [id number] from 2108 to 2153 I have reviewed the non-stress test tracing above and agree with the interpretation as baseline 140and reactive. Varsha Hernandes MD 09/21/2023 11:02 * Julieta Segal, LYDIA - 09/19/2023 1124 EDT NST Report [id number] Baseline Heart Rate: 140 Accelerations: present Movement: present Decelerations: present-variable Contractions: rare Interpretation: reactive Co-sign Provider (Physician Name): Dr. Suleman SILVA, RN Associated attestation - Riya Shell MD - 09/19/2023 1820 EDT NST reviewed and agree with reports as below. Reactive NST, one variable deceleration noted. Riya Shell MD PGY5 Maternal Medicine Fellow 09/19/23 18:19 * Aditya Villar MD - 09/19/2023 0612 EDT Antepartum Progress Note Chief Complaint: PEC w [...] x1 and magnesium gtt during transport to [facility]. 24 hr urine protein 500mg on admission. [...] Bps though had dose held last night. Dueto patient's stable BPs and no vasovagal episodes for a week, patient was offered the option of delivery at 35 weeks rather than the planned 34 week delivery, pt and partner currently leaning [id number] week delivery. Will CTM BP, wellbeing. PEC [...] s/p Tdap on 09/13 - immunizations: none ADITYA VILLAR MD 09/19/23 6:12 Obstetrics/Gynecology PGY-2 Associated attestation - Riya Shell MD - 09/19/2023 1758 EDT Attestation: I performed or was present during the chang or critical portions of the patient's care and participated in the management of the patient on 09/19/2023. I agree with the findings and plan ofcare as documented in the resident's note. 28yo at 33w5d admitted at 31w4d for preeclampsia with severe features. Required discontinuation of antihypertensives for some time, however BP's tommie again on 09/17 and labetolol was restarted. Repeat preeclampsia labs sent today and normal. Will continue to discuss delivery planning, thoughlikely to recommend IOL at 34w0d. BP's normal today. Riya Shell MD 09/19/2023 17:56 * Varsha Hernandes MD - 09/18/2023 2100 EDT NST Report [id number] Baseline Heart Rate: 135 Accelerations: present Movement: present Decelerations: absent Contractions: absent Interpretation: reactive Co-sign Provider (Physician Name): Dr. Varsha THURSTON RN MFM attending NST on [id number] from 2004 to 2026 I have reviewed the non-stress test tracing above and agree with the interpretation as baseline 135and reactive. Varsha Hernandes MD 09/21/2023 10:59 * JuancarloseddySandrine, [facility] - 09/18/2023 1226 EDT Antepartum patient continues to remain admitted and stable. No social work/case management needs identified at this time. Will continue to follow progress and check-in with patient periodically. SW to remain available for psychosocial support, care coordination, and admission/discharge planning. Please reach out as needed. Sandrine FalconSONIA [phone] ([email or web address] secure chat preferred) * Herminia Portillo - 09/18/2023 1143 EDT [facility] Spiritual Care Note Re: Hasmukh Young : 1995, AGE: 28 y.o. ROOM: [place] [address] Spirituality: None BACKGROUND Routine visit. Patient was occupied at the time. INTERVENTIONS Presence CARE PLAN No further plan TIME STAMP: 5 minutes Thank you for the opportunity to provide for this patient's/family's spiritual needs. Philly Brown, [facility] [employer] Architect [address] * Carolina Tamayo RD - 09/18/2023 1017 EDT Nutrition Assessment Note: Initial Visit Reason for [...] chloride (OCEAN) 0.65 % nasal spray 1 [place] nasal - both Q2H PRN Pertinent Labs: Reviewed Estimated Nutrition Intake: 100% of one meal recorded on 09/15 ASSESSMENT: Patient screened in for nutrition assessment due to length of stay. She is eating well, good appetite though menu is getting repetitive. She has a cafe pass to help with menu fatigue though access tocafeterias is limited by activity restrictions and only able to go in a wheelchair with a staff member. No nutrition questions or concerns at this time. Nutrition Risk Level: Low (3) MEDICAL NUTRITION THERAPY PLAN: Continue Regular diet - Generally healthful, balanced diet - Has Cafe Pass, exp 10/08/23 Monitor: PO intake, wgt, skin, labs, BMs CAROLINA TAMAYO RD, CD (Call PAS or use [employer] ([employer]) to page RD covering this unit) * Varsha Hernandes MD - 09/18/2023 0750 EDT NST Report Baseline Heart Rate: Baseline 175 with baseline change to 150 ~ 0940 Accelerations: present Movement: present Decelerations: variable decels noted. ~0927 LOC noted during position change with RN at bedside, possible prolonged decel Contractions: none Interpretation: reactive Pt repositioned to left lateral at 0928 / LOC at this time Dr Jeremías Bird viewed NST in real time remotely. Dr. Zeinab Hernandes on unit and at bedside at time of NST monitoring and viewed NST in real time. No action to be taken at this time. Co-sign Provider (Physician Name): Zeinab HOLMAN RN MFM attending NST on [id number] from 904 to 1004 I have reviewed the non-stress test tracing above and agree with the interpretation as baseline 150and reactive. Varsha Hernandes MD 09/18/2023 10:44 * Rosalia Galvez - 09/18/2023 0609 EDT Antepartum Progress Note Chief Complaint: KIMBERLY baer SF diagnosed at 31+4, now 33w4d Hospital [...] x1 and magnesium gtt during transport to [facility]. 24 hr urine protein 500mg on admission. [...] episodes for a week, patient was offered theoption of delivery at 35 weeks rather than the planned 34 week delivery. Patient will discuss with lee riley and consider over the weekend. Will CTM [...] needs tdap, ordered - immunizations: none ROSALIA VILLARREAL-BJ, MS4 09/18/23 6:09 Associated attestation - Varsha Hernandes MD - 09/18/2023 0939 EDT Attending Attestation: I was present with the medical student for the history, exam, and medical decision making documented by her. I have personally performed my own physical exam and medical decision making. I have verified, edited and agree with the medical student???s documentation. When I saw her, she was awake. Shesaid that she felt very tired the past [...] after she discusses with her partner. Varsha Hernandes MD 09/18/2023 9:35 * Varsha Hernandes MD - 09/17/2023 2144 EDT NST Report [id number] Baseline Heart Rate: 145, then 140 Accelerations: present Movement: present Decelerations: x1 variable Contractions: x1 at 2113 for 60 sec, mild cramp Interpretation: reactive Co-sign Provider (Physician Name): Dr. Varsha THURSTON RN MFM attending NST on [id number] from 2056 to 2133 I have reviewed the non-stress test tracing above and agree with the interpretation as baseline 140and reactive. Varsha Hernandes MD 09/18/2023 9:33 * Varsha Hernandes MD - 09/17/2023 0808 EDT NST Report Baseline Heart Rate: 145 Accelerations: present Movement: present Decelerations: present x1 Contractions: rare Interpretation: reactive Co-sign Provider (Physician Name): Dr. Zeinab HOLMAN RN MFM attending NST on [id number] from 756 to 829 I have reviewed the non-stress test tracing above and agree with the interpretation as baseline 145but I only see one clear acceleration so would not call this reactive.There is normal variability and one near acceleration just prior to the baseline being established at 145. It looked like 150 prior to that, and the acceleration didn't quite reach 165. This tracing is reassuring overall. Varsha Hernandes MD 09/17/2023 9:22 * Rosalia Galvez - 09/17/2023 2153 EDT Antepartum Progress Note Chief Complaint: KIMBERLY baer SF diagnosed at 31+4, now 33w3d Hospital Day: 13 Overnight Events: NAEON Subjective: Slept ok but was feeling intermittent contractions that were waking her up. Has not hada vasovagal episode since 09/11. Continues to have [...] x1 and magnesium gtt during transport to [facility]. 24 hr urine protein 500mg on admission. [...] needs tdap, ordered - immunizations: none ROSALIA VILLARREAL-BJ, MS4 09/17/23 6:47 Associated attestation - Varsha Hernandes MD - 09/17/2023 0929 EDT Attending Attestation: I was present with the medical student for the history, exam, and medical decision making documented by her. I have personally performed my own physical exam and medical decision making. I have verified, edited and agree with the medical student???s documentation. In addition, her morning NST was reassuring but not reactive. We will repeat tonight. Varsha Hernandes MD 09/17/2023 9:27 * Varsha Hernandes MD - 09/16/2023 2030 EDT NST Report [id number] Baseline Heart Rate: 140 Accelerations: present Movement: present-very active/interruption in monitor tracing due to movement Decelerations: present variable rare Contractions: irregular: 2 uterine contractions palpated (mild) Interpretation: reactive Co-sign Provider MD AUBRIE Tubbs RN [facility] attending NST on [id number] from 1924 to 2009 I have reviewed the non-stress test tracing above and agree with the interpretation as baseline 140and reactive. Varsha Hernandes MD 09/17/2023 9:30 * Varsha Hernandes MD - 09/16/2023 1130 EDT NST Report Pt. On nst 907- 1021 [...] Interpretation: reactive Co-sign Provider (Physician Name):dr cecilio LIMA, RN MFM attending NST on [id number] from 907 to 1021 I have reviewed the non-stress test tracing above and agree with the interpretation as reactive butI would have called baseline 140. Varsha Hernandes MD 09/16/2023 13:10 * Rosalia Galvez - 09/16/2023 0649 EDT Antepartum Progress Note Chief Complaint: PEC w SF diagnosed at 31+4, now 33w2d Hospital Day: 12 Overnight Events: NAEON Subjective: Slept well overnight, [...] Labs No new labs. Imaging: Growth completed 6/8,cephalic, anterior placenta, AC 94%ile, EFW 66%ile 2069g Assessment/Plan: 28 y.o. now at 33w2d admitted for PEC w/ SF diagnosed at 31+4, received procardia x1 and magnesium gtt during transport to [facility]. 24 hr urine protein 500mg on admission. [...] records, needs tdap, ordered - immunizations: none ROSALIACAYETANO OCHOA-BJ, MS4 09/16/23 6:49 Associated attestation - Varsha Hernandes MD - 09/16/2023 1055 EDT Attending Attestation: I was present with the medical student for the history, exam, and medical decision making documented by her. I have personally performed my own physical exam and medical decision making. I have verified, edited and agree with the medical student???s documentation. Ms Young is doing well, and I toldher I was okay with her going down to cafeteria. Induction at 34 weeks'. Varsha Hernandes MD 09/16/2023 10:54 * Varsha Hernandes MD - 09/15/2023 2330 EDT NST Report Baseline Heart Rate: 150 Accelerations: present Movement: present Decelerations: present Contractions: Irregular Interpretation: reactive Co-sign Provider (Physician Name): RALF RENTERIA RN M attending NST on [id number] from 2138 to 2305 I have reviewed the non-stress test tracing above and agree with the interpretation as baseline 150and reactive. Varsha Hernandes MD 09/16/2023 10:49 * Varsha Hernandes MD - 09/15/2023 1624 EDT NST Report on nst [id number] pt. Sitting slightly reclined, pillow under hip Baseline Heart Rate: 145 Accelerations: present Movement: present Decelerations: one variable with quick return to baseline Contractions: absent Interpretation: reactive Co-sign Provider (Physician Name):varsha LIMA RN M attending NST on [id number] from 844 to 921 I have reviewed the non-stress test tracing above and agree with the interpretation as reactive, although I would have called baseline 140. Varsha Hernandes MD 09/16/2023 10:51 * Rosalia Galvez - 09/15/2023 0748 EDT Antepartum Progress Note Chief Complaint: PEC w [...] x1 and magnesium gtt during transport to [facility]. 24 hr urine protein 500mg on admission. [...] needs tdap, ordered - immunizations: none ROSALIA VILLARREAL-BJ, MS4 09/15/23 7:48 Associated attestation - Varsha Hernandes MD - 09/15/2023 1230 EDT Attending Attestation: I was present with the medical student for the history, exam, and medical decision making documented by her. I have personally performed my own physical exam and medical decision making. I have verified, edited and agree with the medical student???s documentation. We will watch and see if we can get her to 34 weeks' and then deliver. Varsha Hernandes MD 09/15/2023 12:30 * Xochitl Lima RN - 09/14/2023 1247 EDT NST Report pt. Sitting on nst [id number] Baseline Heart Rate: one part 140 ,one part 145 to 150 Accelerations: present Movement: present Decelerations: possible occasional variable with quick return to baseline Contractions: absent Interpretation: reactive Co-sign Provider (Physician Name):brandon LIMA RN * Sandrine Falcon MSW - 09/14/2023 1146 EDT Patient attended IUP support group in [facility] this morning from [phone]. Shared openly withpeers and engaged in mutual support to help with coping during hospital admission for high-risk . SONIA Hernandez [phone] ([email or web address] secure chat preferred) * Odilia Franks MD - 09/14/2023 1036 EDT MFMS Attending I saw and examined [...] to the pre- condition(s). Odilia Franks MD * Sandrine Falcon MSW - 09/14/2023 0969 EDT Checked in with Hasmukh on 7. Had eventful few days last week with episodes likely related to BP she says. Has now lost her off unit privileges but was really hoping to come to IUP support groupthis morning. Since it is just in the Family Lounge (right outside unit doorway), RN approved for her to attend as this technical document writer can call for help if needed. [...] Plan to reassess. SW sent message to N ICU resident to request re-consult. SWCM to remain available for psychosocial support, care coordination, and admission/discharge planning. Please reach out as needed. SONIA Hernandez [phone] ([email or web address] secure chat preferred) * Yasmin Owusu MD - 09/13/2023 2303 EDT NST Report [id number] Baseline Heart Rate: 140 Accelerations: present Movement: present Decelerations: absent Contractions: absent Interpretation: reactive Co-sign Provider (Physician Name): YASMIN OWUSU MD, RN I reviewed the NST and agree. Yasmin Owusu MD * Dasia Piper RN - 09/13/2023 1143 EDT NST Report Baseline Heart Rate: 145 Accelerations: present Movement: present Decelerations: variables Contractions: none Interpretation: reactive; initially difficult tracing with active baby and changing baseline; baseline settled at 145; moderate variability Co-sign Provider (Physician Name): Judith Rodriguez Nst [id number] DASIA PIPER RN Associated attestation - Judith Rodriguez MD - 09/13/2023 1320 EDT I have reviewed the heart rate tracing and agree with NST interpretation as above. Judith Rodriguez MD 09/13/2023 13:20 * Rosalia Galvez - 09/13/2023 0737 EDT Antepartum Progress Note Chief Complaint: PEC w SF diagnosed at 31+4, now 33w0d Hospital Day: 9 Overnight Events: NAEON Subjective: Slept well overnight, feeling well this morning. Had one other dizzy episode on Thursday but had an uneventful Thursday. Denies CAMPBELL, changes in vision, CP, SOB, RUQ pain, edema. +FM, no LOF,VB, ctx. Objective: BP 93/44 Temp 36.5 ??C [...] x1 and magnesium gtt during transport to [facility]. 24 hr urine protein 500mg on admission. [...] needs tdap, ordered - immunizations: none ROSALIA DONDAVID, MS4 09/14/23 9:07 * Yasmin Owusu MD - 09/13/2023 0049 EDT NST Report [id number] Baseline Heart Rate: 145 Accelerations: present Movement: present Decelerations: present - 1 variable Contractions: absent Interpretation: reactive Co-sign Provider (Physician Name): YASMIN OWUSU MD, LYDIA I reviewed the NST and agree. Yasmin Owusu MD * Chasity Lee MD - 09/12/2023 1635 EDT OB Update: Non-sustained SRBP with sudden onset [...] 09/12/23 19:45 Obstetrics & Gynecology, PGY-3 Pager #[phone] * Ita Molina RN - 09/12/2023 1445 EDT 1445: assumed care of pt. Transfer from mother baby, bs report from Bettye FREEMAN. 1455: pt endorses +FM, denies ctx, vb, LoF. CAMPBELL 8/10 pain. (See Mar) To send repeat PEC labs. (See results) 1632: pts pain 3/10, labs stable. ok to transfer back to B7. * Bettye Monroe RN - 09/12/2023 1215 EDT 1215: Pt was on right side. Moved to semi fowlers for her VS. Began to feel lightheaded and hot. Stated, I'm really hot, I need the fan. Pulse up to 106. BP 129/81. 1218: Feeling better. Pulse down to 80. Able to open her eyes. Not dizzy but says she now has a bitof a headache. 1220: Pulse 78-80. Feeling better. 1420: BP 170/90-100's. Dr. Lee notified. C/O right upper quadrant pain, CAMPBELL, nausea. 1425: Dr. Lee at bedside. P 120. 1426: BP 132/105 1430: Plan to transfer to L&D for further monitoring. 1440: Transferred to L&D. Report given to Ita FREEMAN. 1718: Back from L&D. Report received from Ita FREEMAN. * Bettye Monroe RN - 09/12/2023 09 EDT NST Report Baseline Heart Rate: 140 Accelerations: present Movement: present Decelerations: absent Contractions: absent Interpretation: reactive Co-sign Provider (Physician Name): Dr. Salazar [id number] BETTYE MONROE RN Associated attestation - Esther Salazar MD - 09/12/2023 1225 EDT NST reactive Esther Salazar * Chasity Lee MD - 09/12/2023 0774 EDT Antepartum Progress Note Chief Complaint: PEC w [...] x1 and magnesium gtt during transport to [facility]. 24 hr urine protein 500mg on admission. [...] 09/12/23 7:27 Obstetrics & Gynecology, PGY-3 Pager #[phone] Associated attestation - Esther Salazar MD - [...] of care as she lives close to [facility]. Discussed that if the Thursday provider states reasonable to go home that there will likely be a plan for MFM f/u in clinic ante natally. Discussed that it is difficult to promise that [facility] providers would be comfortable to take careof her with blood pressure issues at an [...] acute setting. Esther Salazar MD 09/12/2023 12:26 * Kenneth Gaona RN - 09/11/2023 2247 EDT NST Report Baseline Heart Rate: 140 Accelerations: present Movement: present Decelerations: absent Contractions: absent Interpretation: reactive Co-sign Provider (Physician Name):Dr. Golden GAONA, RN * Rosalia Galvez - 09/11/2023 1520 EDT OB UPDATE NOTE Patient was sitting and [...] episodes of dizziness with nausea that seem tooccur suddenly and with no known trigger. All of her previous labs have been wnl including CBC and CMP. Differential still includes likely vasovagal episodes. Will continue to monitor. [facility]. Holter monitor was placed at 15:15 and will be left in place for 24 hours. ROSALIA GALVEZ, MS4 09/11/23 16:07 * Apolinar Choi MD - 09/11/2023 0647 EDT Antepartum Progress Note Chief Complaint: PEC w SF diagnosed at 31+4, now 32w4d Hospital Day: 7 Overnight Events: - NAOE Subjective: Feeling well this morning. Got to visit with her family yesterday evening which was nice. She is not leaving the unit in light of her two previous pre-syncopal episodes. Patient denies CAMPBELL, vision changes, SOB, Chest pain, RUQ pain, acute LE edema. . -VB, -LOF, -CTX. +FM. Objective: BP 95/56 (BP Cuff Location: Left arm, BP Patient Position: Semi fowlers) Temp 36.4 ??C(97.5 ??F) (Temporal) Resp 20 Ht 172.7 cm [...] x1 and magnesium gtt during transport to [facility]. 24 hr urine protein 500mg on admission. [...] needs tdap, ordered - immunizations: none ROSALIA PENFIELD-BJ, MS4 09/11/23 6:47 Attending Attestation: I was present with the medical student for the history, exam, and medical decision making documented by him/her. I have personally performed my own physical exam and medical decision making. I have verified and agree with (or, as indicated, have edited) the medical student???s documentation. Was doing well this AM, however [...] nd Ms. Young now not requiring antihypertensives. Apolinar Choi MD * Tracee Coburn RN - 09/10/2023 2237 EDT NST Report [id number] Baseline Heart Rate: 145 - change to 135 at 7 Accelerations: present Movement: present Decelerations: present - variable Contractions: absent Interpretation: reactive Co-sign Provider (Physician Name): Patient is 30 and 3 weeks gestation with hx of PEC w/ SF. MD Harmon reviewed strip due to decelerations. Patient monitored for 60 minutes. Overall moderate variability, reactive with good movement. TRACEE COBURN RN * Favian Andrade RN - 09/10/2023 1740 EDT NST Report Baseline Heart Rate: 135 Accelerations: present Movement: present Decelerations: absent Contractions: irritability Interpretation: reactive Co-sign Provider (Physician Name):Hoang Franks MD [phone] Pt went off unit and called because she started to feel SOB. This technical document writer found her sitting in her wheel chair in the [facility] hallway. Pt had just started feeling dizzy, which became worse as we got closer to the unit. Pt assisted in her bed. notified VS taken and placed on monitor. FAVIAN ANDRADE RN * Favian Andrade RN - 09/10/2023 1112 EDT NST Report Baseline Heart Rate: 150 Accelerations: present Movement: present Decelerations: absent Contractions: irritability Interpretation: reactive Co-sign Provider (Physician Name):Hoang Franks MD NST ran from [id number] FAVIAN ANDRADE RN * Rosalia Galvez - 09/10/2023 0903 EDT Antepartum Progress Note Chief Complaint: PEC w [...] x1 and magnesium gtt during transport to [facility]. BP under good control with minimal labetalol, [...] needs tdap, ordered - immunizations: none ROSALIA VILLARREAL-BJ, MS4 09/10/23 9:03 Associated attestation - Odilia [...] to the pre- condition(s). Odilia Franks MD * Tracee Coburn RN - 09/09/20232113 EDT NST Report [id number] Baseline Heart Rate: 145 Accelerations: present Movement: present Decelerations: present - variable x1 Contractions: absent Interpretation: reactive Co-sign Provider (Physician Name): MD. Franks Patient is 30 and 2 weeks gestation being monitored for PEC w/ SF. MD Harmon notified of variable deceleration. Overall reactive strip with moderate variability. TRACEE COBURN RN * Favian Andrade RN - 09/09/2023 1421 EDT NST Report Baseline Heart Rate: 145 Accelerations: present Movement: present Decelerations: present Contractions: irritability Interpretation: not reactive Co-sign Provider (Physician Name):Hoang Franks MD NST ran from [id number]. Variables noted, with accelerations. Not reactive, but reassuring. Dr. Andres notified after 40 min. FAVIAN ANDRADE RN * Sharon Bird - 09/09/2023 1207 EDT OB Update Note Patient left the floor to walk around the hospital. She went to the bathroom and felt dizzy. When she tried to stand up from the toilet she felt dizzy and nauseous and quickly sat back down on the toilet and called for help. She needed assistance getting off the toilet and on to the floor where sherested in the position and vomited some mucus. [...] labetalol. Discussed with MFM attending Dr. Golden VILLARREAL-BJ, MS4 09/09/23 12:18 I was present with the medical student for the history, exam, and medical decision making documented by the student. I have edited the student note as appropriate. Sharon Bird MD * Umm Martin RN - 09/09/2023 1201 EDT 12:01 Pt to L&D after OB emergency Michael Gilliam and Marge @ bedside Cefrm and toco in place BP 146/51; HR 98 13:22 pt oob to void in bathroom No dizziness or lightheadness while up. 13:53 oob to void; Tolerating PO fluids. Pt states she is feeling better 14:06 plan for transfer to * Sharon Bird - 09/09/2023 0646 EDT Antepartum Progress Note Chief Complaint: PEC w SF diagnosed at 31+4 Hospital Day: 5 Overnight Events: - NAOE Subjective: Feeling well this morning. Again had some episodes of lightheadedness/dizziness yesterday after walking. Thinks this might be related to her headaches - both this and dizziness resolved with Tylenol. Otherwise feeling well. Patient denies Vision changes, CAMPBELL, SOB, Chest pain, RUQ pain, ac russ LE edema. . -VB, -LOF, -CTX. +FM. [...] SF diagnosed at 31+4, received procardia x1 andmagnesium gtt during transport to [facility]. BP under good control with minimal labetalol [...] tdap, ordered - immunizations: none SHARON BIRD 09/09/23 6:47 Obstetrics & Gynecology, PGY-2 Pager [phone] Associated attestation - Odilia Franks MD - 09/09/2023 1306 EDT MFMS Attending I saw and examined the patient. I agree with impression and plan as noted above. I spent 20-29 minutes of total time today on the encounter. Pt in chair, feeling well GFM Good bp control without escalation Disc a possible plan for DC Thursday- if stable: APV, BPP, NST on UVMM and on Mondays NST and bp check [facility] in [facility]. If managed as outpt will assess optimal delivery timing in that context, no later than 37 wks Disc readmit if opoor control of bp at home Disc [facility] RNs every day if desired with home bps Would CHUY MFM and plan delivery here-prior had significant hosptial stay 912 days) for bpcontrol at [facility]. Low threshold for eadmit/delivery 34 wks Pt will let FOB know, as he will need reassurance Of note, about an hour after our discussion, pt was walking in hosptial, felt dizzy, nauseated, Emertgency called, to L&D-there bp stable, P 100; FHR reactive. No LOC, no persistent CAMPBELL. Feeling better after about 15 min, feels [...] time spent meeting with the patient, reviewing documentationand coordinating care that is directly attributable to the pre- condition(s). Odilia Franks MD * Tracee Coburn RN - 09/08/2023 2110 EDT NST Report [id number] Baseline Heart Rate: 135 Accelerations: present Movement: [...] Variables with reactive NST Odilia Franks MD * Nereyda Jeffries RN - 09/08/2023 1254 EDT NST Report Baseline Heart Rate: 140 Accelerations: present Movement: present Decelerations: present Contractions: irritability Interpretation: reactive [id number] Co-sign Provider (Physician Name): MD NEREYDA Franks RN Associated attestation - Odilia Franks MD - 09/09/2023 1306 EDT I reviewed NST and agree with above Reactive Odilia Franks MD * [facility], [facility] - 09/08/2023 1056 EDT Checked in with Hasmukh this morning. She is still here she says. Provided list of discounted hotels and pointed out which hotels [facility] works with most frequently. Discussed [facility] not typically able to accommodate 50/50 stays for families given their waiting lists and need for re-referrals. Discussed could utilize them for a week if wants to stay close at first, or could utilize them for a few days around discharge timing if wants to be close towards the end of baby's stay. [place] worried about expense of gas with commuting back and forth - SW explained travel support program,can provide some gas cards to alleviate burden during NICU stay. Also discussed new undelivered meet-up/support group starting next Thursday morning on the unit in the [facility]. Will provide flyer for more info. Questions about parking validation - SW to add sticky note for staff to validate partner's parking.Will also f/u on cafe pass this morning. SWCM to remain available for psychosocial support, care coordination, and admission/discharge planning. Please reach out as needed. SONIA Hernandez [phone] ([email or web address] secure chat preferred) * Sharon Bird - 09/08/2023 0559 EDT Antepartum Progress Note Chief Complaint: PEC w [...] SF diagnosed at 31+4, received procardia x1 andmagnesium gtt during transport to [facility]. Low normotensive yesterday with BPS 110s/70s on [...] records, needs tdap, ordered - immunizations: none SHARONJOSE BIRD 09/08/23 5:59 Obstetrics & Gynecology, PGY-2 Pager [phone] Associated attestation - Odilia Franks MD - [...] stable Disc possible outpt management-she lives near [facility] and wants to be close to [...] to the pre- condition(s). Odilia Franks MD * Alea Young RN - 09/07/2023 2117 EDT NST Report Baseline Heart Rate: 135 Accelerations: present Movement: present Decelerations: absent Contractions: absent Interpretation: reactive NST from [id number], MD harmon notified to review strip, cold juice given to promote reactivity. PerMD ok to come off monitor. Co-sign Provider (Physician Name): MD ALEA Franks RN Associated attestation - Odilia Franks MD - 09/09/2023 1312 EDT I reviewed NST and agree with above Reactive Odilia Franks MD * [facility], [facility] - 09/07/2023 1346 EDT Antepartum Admission Case Management/Social Work Assessment Reason for admission: PEC w SF diagnosed at 31+4, currently on HD #3. Planning for 34w IOL unless BP/symptoms worsen. Chief Complaint Patient presents with Pre-Eclampsia Patient/family understands reason for admission: Yes - understands reason for admission and plan ofcare as stated above. Questions about length of stay ; said she had a 12 day admission due to BP issues after the of her 3yo. Discussed 24hr magnesium on L&D and then 24-48hr PP stay on B7 as standard but complications may extend. Patient/family contact information verified: Yes - Corrales ([phone]) and FOB/partner Hong ([phone]). Emergency contacts are Hong primarily [patient concerned this is not updated in chart, SWto ensure contacts are updated and Hong's info goes into sticky notes] & mother Akiko ([phone]). Patient address verified: Yes - [address] [place] [address]. Living arrangement: Hasmukh and Hong live in a home in [place], [place]. They have a blended family; Hasmukh [...] on file Utilities: Not At Risk (09/04/2023) [facility] Utilities Threatened with loss of utilities: No [...] some hotel room nights. Also interested in [facility] but would only stay here for part of the week, SW will look into [facility] requirements for staying in the house - communicated to patient that she would likely need to stay at [facility] for the majority of the nightsduring the week. Patient understanding of these options and limitations. Also asked about boarder rooms and explained the eligibility for accessing these. Will bring list of discounted hotels to [facility]. Transportation plan: Yes Lodging needs: Yes INSURANCE COVERAGE: Insurance: [place] Medicaid [facility] Registration Financial Advocates referral: No FAMILY RESOURCES/SUPPORTS: Patient's Primary Care Provider: Jeniffer Angulo 's [employer] Set Up Operator (if applicable): Not assessed during this visit. Specialists: Chiropractor. Verified: Yes Community Programs: WIC. SNAP. Medicaid. Employment/Childcare: MICHELLE is a SAHM. FOB recently promoted at [employer], they are flexible with histime off if he needs to get here urgently. Social Supports: Endorse good support from family network as well as community. [place] very [place] town so they know lots of neighbors/residents. Mental Health History/Needs: Declines hx of mood concerns or current concerns re:coping with hospitalization. SW will continue to monitor. CULTURAL, TENRIISM and/or LANGUAGE factors affecting health care/discharge planning: Language/Literacy needs: Uzbek speaking. Spiritual/Cultural requests: None. ADMISSION/DISCHARGE PLANNING: Preferred Pharmacy: No Pharmacies Listed Home Health: Not discussed during this visit. Choice Form Signed: No Family???s identified goals/needs: SWCM will continue to follow patient's progress and remain available for coordination of care, psychosocial support and/or discharge planning. Provided business card for any immediate needs, will plan to visit every 2-3 days during admission. Will f/u with [facility] and provide list of local lodging options as well. No other questions at this time. Other hospital services offered/indicated: None at this time. Referrals Made by SW: None at this time. PLAN FOR ADMISSION & POST-HOSPITAL TRANSITION PLAN: I met with the family, introduced myself and the role of SWCM. Assessed for needs and discussed plans for admission & discharge. SONIA Hernandez [phone] (Epic secure chat preferred) * Julieta Segal, LYDIA - 09/07/2023 1037 EDT NST Report [id number] Baseline Heart Rate: 145 Accelerations: present Movement: present Decelerations: absent Contractions: absent Interpretation: reactive Co-sign Provider (Physician Name): Dr. Golden SILVA, RN Associated attestation - Odilia Franks MD - 09/09/2023 1312 EDT I reviewed NST and agree with above Reactive Odilia Franks MD * Bird Sharon - 09/07/2023 0641 EDT Antepartum Progress Note Chief Complaint: PEC w [...] SF diagnosed at 31+4, received procardia x1 andmagnesium gtt during transport to [facility]. Stable and majority normotensive after arrival and [...] needs tdap, ordered - immunizations: none SHARON HOFFMANMUSSEN 09/07/23 6:43 Obstetrics & Gynecology, PGY-2 Pager [phone] Associated attestation - Odilia Franks MD - 09/07/2023 0555 EDT MFMS Attending I saw and examined [...] to the pre- condition(s). Odilia Franks MD * Nereyda Jeffries RN - 09/06/2023 215 EDT NST Report Baseline Heart Rate: 145 Accelerations: present Movement: present Decelerations: absent Contractions: irritability Interpretation: reactive Co-sign Provider (Physician Name): MD NEREYDA Franks RN Associated attestation - Odilia Franks MD - 09/09/2023 1312 EDT I reviewed NST and agree with above Reactive Odilia Franks MD * Julieta Segal RN - 09/06/2023 0940 EDT NST Report [id number] Baseline Heart Rate: 145 Accelerations: present Movement: present Decelerations: absent Contractions: rare Interpretation: reactive Co-sign Provider (Physician Name): Dr. Suleman SILVA RN Associated attestation - Odilia Franks MD - 09/09/2023 1312 EDT I reviewed NST and agree with above Reactive Odilia Franks MD * Cherrie Shah MD - 09/06/2023 0649 EDT Antepartum Progress Note Chief Complaint: PEC w [...] SF diagnosed at 31+4, received procardia x1 andmagnesium gtt during transport to [facility]. Stable and majority normotensive after arrival and [...] BID since that time. S/p IV mag atdiagnosis. 24hr urine elevated at 500, PEP otherwise normal. Plan to recheck labs tomorrow AM. GS reveals appropriately grown fetus, read to be confirmed. Riya Shell MD 09/06/2023 11:31 * Jesus Thurston RN - 09/05/2023 2328 EDT NST Report [id number] Baseline Heart Rate: 135 Accelerations: present Movement: present Decelerations: absent Contractions: absent Interpretation: reactive Co-sign Provider (Physician Name): Dr. Odilia THURSTON RN Associated attestation - Odilia Franks MD - 09/09/2023 1313 EDT I reviewed NST and agree with above Reactive Odilia Franks MD * Julieta Segal RN - 09/05/2023 1413 EDT NST Report [id number] Baseline Heart Rate: 140 Accelerations: present Movement: present Decelerations: present- variable Contractions: absent Interpretation: reactive Co-sign Provider (Physician Name): Dr. An- Charla to come off per Dr. Omaira SILVA RN Associated attestation - Kylah An MD - 09/05/2023 1437 EDT I reviewed the above NST. It is reactive. I agree with the assessment. Kylah An MD Fellow Maternal Medicine 09/05/23 * Cherrie Shah MD - 09/05/2023 0639 EDT Antepartum Progress Note Chief Complaint: PEC w SF diagnosed at 31+4 Hospital Day: 2 Overnight Events: - admitted to L&D after transfer from [facility] - sustained SR BP before transfer, [...] Assessment/Plan: 28 y.o. @ 31w5d with PEC buffy PHILLIP diagnosed at 31+4, received procardia x1 andmagnesium gtt during transport to [facility]. Stable and majority normotensive after arrival and [...] EFW 2069g (66%), AC 94%. LEA 23.4 withMVP 8.9 cm. Reports passed diabetes screen x2 this and no history of GDM. In patient until delivery, likely IOL at 34w0d. Kylah An MD Obstetrics/Gynecology * Josey Parisi RN - 09/04/20232005 EDT 19:20 Rec'd report at bedside from Edel Morejon RN. Pt sitting up in bed, endorsing feeling well. Deniess/s preE. Endorses FM. cEFM in place. Plan of care reviewed. 20:18 Education on heparin, 24 hour urine given. Pt verbalizes understanding. See [facility] for admin 21:05 24 hour urine start. 22:10 Transferred to [place] [id number], report at bedside to LYDIA Hussein. * Edel Muniz RN - 09/04/2023 1515 EDT 1510 Pt arrived via transport from [facility] PEC c SF, currently on mag 2g/hr. Rh+ 31+4. S/p [...] Clemens removed. Cervical exam fingertip and long Bird. 1712 200mg labetalol given as ordered. Pt declines tylenol for CAMPBELL, resolving and blurry vision better. 1920 Report given to LYDIA Dowling documented in this encounter H&P Notes * Apolinar Choi MD - 09/04/2023 1551 EDT Department of Obstetrics History & Physical Admit Date: 09/04/2023 Chief Complaint Patient presents with Pre-Eclampsia HPI: Hasmukh Young is a 28 y.o. at 31w4d by US @ 7w4d. Transferred from [facility] for PEC w/ SF. SR blood pressure taken at [facility] at 10:00 AM was 181/94, preeclampsia labs wnl. She received 10 mg nifedipine PO and BMZ #1 09/03 @11:00 am. She was started on Mg 4 g bolus at 1249 and was transferred by ambulance on Mg drip. [facility], patient reports headache that she attributes to car sickness, slowing resolving.Denies CP, SOB, RUQ pain, LOF, VB, ctxs. Complications: - cholecystitis w/o obstruction - previous dx of gHTN - PEC w/ SF in prior pregnancies 2x, induced at 35 and 36 weeks - Hx of IUGR in previous - hx infant with GBS septicemia at 3 months of age - anxiety Review of Systems: see above Testing: No data recorded Medication Exposure: - PNV - ASA Labs: Lab Results Component Value Date ABO A 09/04/2023 Rh Factor Positive 09/04/2023 Antibody Screen Negative 09/04/2023 Rubella IgG Ab Positive 04/20/2023 Varicella IgG Ab Positive 04/20/2023 Hep B Surface Ag Negative 04/20/2023 1hr GTT passed / GBS unknown Ultrasound Anatomy scan at [facility], normal per pt, report not available FOB History: No data recorded OB History Para Term AB Living 5 2 0 2 2 2 SAB IAB Ectopic Multiple Live Births 2 # Outcome Date GA Lbr Feroz/2nd Weight Sex Type Anes PTL Lv 5 Current 4 AB 3 AB 2 36w0d F Vag-Spont SHAYY 1 35w0d M Vag-Spont SHAYY Past Medical History Past Surgical History Past Medical History: Diagnosis Date Broken wrist Depression Glaucoma possible suspect per patient Headache(784.0) UTI (urinary tract infection) Wears glasses Past Surgical History: Procedure Laterality Date WRIST SURGERY Past Gynecological History Social History none Social History Tobacco Use Smoking status: Former Types: Cigarettes Passive exposure: Current Smokeless tobacco: Not on file Tobacco comments: 1 PPD x 7 yrs Substance Use Topics Alcohol use: Yes Comment: 1-2 4-5 d/wk reports current drug use. Drug: Marijuana. Medications Allergies Medications Prior to Admission Medication Sig Dispense Refill Last Dose [DISCONTINUED] ARIPiprazole (ABILIFY) 15 mg tablet Take 15 mg by mouth daily. aspirin chewable 81 mg tablet Take 1 Tablet by mouth daily. Takes 81mg and 162mg alternating days 09/03/2023 [DISCONTINUED] hydrOXYzine (ATARAX) 25 mg tablet Take 15 mg by mouth 3 times daily. [DISCONTINUED] lithium (LITHOBID) 300 mg CR tablet Take 300 mg by mouth 3 times daily. [DISCONTINUED] LORazepam (ATIVAN) 0.5 mg tablet Take 1 mg by mouth as needed for Anxiety. [DISCONTINUED] nortriptyline (PAMELOR) 50 mg capsule Take 50 mg by mouth daily. [DISCONTINUED] ONDANSETRON (ZOFRAN ODT ORAL) Take by mouth as needed. [DISCONTINUED] propRANolol (INDERAL) 20 mg tablet Take 30 mg by mouth 3 times daily. [DISCONTINUED] UNABLE TO FIND 25 mg daily. Med Name: Sertralin [DISCONTINUED] UNABLE TO FIND daily. Med Name: BirthControl- Avaine Allergies Allergen Reactions Codeine Anaphylaxis Other - See Comments Itching, Swelling and Rash Styrofoam Phenergan [Promethazine] Reglan [Metoclopramide Hcl] Trimethobenzamide Objective: Weights Weight : (!) 108 kg (238 lb) Patient Vitals for the past 8 hrs: BP Heart Rate Resp Temp SpO2 09/04/23 1824 131/73 97 BPM 18 -- -- 09/04/23 1657 134/78 (!) 115 BPM 18 -- -- 09/04/23 1530 (!) 135/91 (!) 109 BPM 18 36.2 ??C (97.2 ??F) 99 % General: NAD Cardiovascular: RRR Respiratory: breathing comfortably on RA Abdomen: gravid, soft, nontender Extremities: 1+ nonpitting LE edema Neuro: 1+ bilateral patellar reflexes, no clonus FHT: 125 baseline. mod variability, + accels, - decels; Cat 1 tracing. TOCO: 06/06 not feeling them SSE: deferred SVE: FT/long/hi Assessment/Problems/Plan: Hasmukh Young is a 28 y.o. at 31w4d by US at 7w4d transferred from [facility] for PEC w/ SF. SR BP of 181/[address] [facility] 09/03 at 10:00 am. Patient was given 10 mg nifedipine PO and BMZ #1 09/03 @11:00 am. Patient was given Mg 4 g bolus at 1249 and was transferred by ambulance on Mg drip. On arrival to [facility] L&D patient was asymptomatic. Repeat PEC labs were sent and Mg was stopped. Pec w/ SF - Admit to B7 - BID NSTs - repeat Pec labs sent - WNL aside from UPC of 0.66 - started on 200 mg labetalol BID - mag during labor - IOL @ 34w - 24HUP - needs tdap, otherwise care up to date - will plan for anatomy scan tonight vs tomorrow - GBS collected Global Rh + GBS unknown Discussed with Dr. Choi. Rosalia Villarreal-Bj, MS4 I was present with the medical student for the history, exam, and medical decision making documented by the student. I have edited the student note as appropriate. ADITYA VILLAR MD Attending Attestation: I was present with the medical student for the history, exam, and medical decision making documented by him/her. I have personally performed my own physical exam and medical decision making. I have verified and agree with (or, as indicated, have edited) the medical student???s documentation. Appears stable on arrival- turned off MagSO4, whic I had them run on transport. Likely to gain sometime- goal will be 34 weeks in keeping with her current dx of preeclampsia with severe features. Will plan on an anatomy scan later tonight vs. tomorrow, AGA on Shaw's, though history of FGR with 1st . Both prior pregnancies complicated by preeclampsia. Care plan discussed with the patient- will plan close surveillance for worsening dz, and/or worsening status, however at this point the patient appears to warrant continued conservative management. Apolinar Choi MD documented in this encounter Procedure Notes * Lyle Mckee RN - 09/21/2023 1213 EDT Ultrasound dynamic guidance was used for peripheral line insertion. Name of truck hop: Lyle Mckee LDAINFO BLOCK Peripheral IV 09/21/23 121 Left;Posterior Forearm (Active) 09/21/23 121 Forearm Dressing Change Due: 09/28/23 Size (Gauge): 18 Catheter Length (Inches): 1.25 Catheter Brand: B [place] Introcan Orientation: Left;Posterior Site: Inserted by: Inserted by RN;Ultrasound Guided Insertion attempts: 1 Local Anesthetic: Skin Antisepsis: 2% Chlorhexidine with IPA Removal Reason : Post Removal Assessment/Care: Size (Gauge): Catheter Length: IV Change Due: Orientation: Criteria to continue met? (chart all reasons) Continuous IV fluids 09/21/23 1212 Date Dressing Changed 09/21/23 09/21/23 121 Dressing date clearly marked on PIV site? Yes 09/21/23 121 Site Assessment Clean/Dry/Intact 09/21/23 121 Line Status Blood returned;Flushed 09/21/231211 Dressing Type Transparent 09/21/231211 Dressing Status/Care Changed/New;Site Cleaned 09/21/23 1212 Patient response: tolerated well Patient education: done at bedside LYLE MCKEE RN 09/21/2023 * Manuel Shi RN - 09/20/2023 2312 EDTAssociated Order(s): NONSTRESS TEST NST Report Baseline Heart Rate: 130 Accelerations: present Movement: present Decelerations: absent Contractions: rare Interpretation: reactive Placed on monitors from [id number] Co-sign Provider (Physician Name): MANUEL SHI RN documented in this encounter Consult Notes * Radha Pedraza MD - 09/04/2023 1731 EDT NICU Consult Called to consult for Hasmukh Young a 28 y/o mother at 31+4 weeks gestation with a male castle (baby's planned name is James). Mom was admitted for Preeclampsia with severe features and was transferred from [facility]. She has a history of two prior births that required NICU admissions. Discussion was had with Hasmukh and her partner Hong Stearns, focusing primarily on if was bornwithin the next 2 weeks. She is s/p BMZ x1 on 09/02 will be due for her second dose tomorrow. Hasmukh is also status post a dose of Magnesium that is not currently planned to continue. Delivery Room: Discussed that peds would be present in the delivery room (in yellow gowns). Explained that after delivery the would be taken to the radiant warmer and evaluated by the NICU team. After initial evaluation and stabilization the infant would be taken to the NICU for further management. It was discussed that mom and dad would be able to see and hopefully touch prior to his/her transfer to NICU. Screening: Explained that premature infants need special screening to assess their hearing, eyes and brain to monitor for the neurodevelopmental issues. Respiratory Support: Discussed the likelihood of requiring respiratory assistance including the various forms of respiratory support ranging from NCPAP to mechanical ventilation. Also discussed possible need for surfactant administration. Feeding Support: Discussed that suck/swallow reflex is not fully coordinated until around 34-36 weeks gestation. Discussed IVF administration thru umbilical catheter placement. Mom wishes to breast feed. Discussed briefly the benefits of BFing and of BM for premature babies. Infectious Risk: Discussed that all infants receive an infectious work- up which includes basic blood work that takes approx 48 hours for results. Discussed all infants receive a minimum of 48 hours of antibiotics while this work up is being performed and results are pending. Discussed that if the work-up is positive or highly suspicious of infection that the may require about a week of antibiotic treatment. Approximate Length of Stay: Indicated that the expectant length of stay would depend on the baby's NICU course, but to expect them to be discharged around the time of their due date. NICU: Discussed the location of the NICU and our current visitation policy. Described the ability for her to hold her baby and the presence of pumping rooms for her convenience. Encouraged mom to adhere to recommendations of her care team in order to ensure the longest possible and the best scenario for the baby. All questions asked of the mother were answered at this time, however, please contact the NICU /Peds team if the family has any further questions. RADHA PEDRAZA MD 09/04/2023 17:31 PGY2 Pediatric Resident documented in this encounter OR Notes * OR Surgeon - Jacki Thomson MD - 09/22/2023 0846 EDT Name: Hasmukh Young : 1995 Date of Service: 09/22/2023 Surgeon: Jacki Thomson MD Procurement Assistant: Kylah Brice MD, Apolinar Choi MD Procedure: Low Transverse Section via Pfannenstiel with double layer uterine closure. Anesthesia: General Preoperative Diagnosis: 1. Intrauterine at 34w1d 2. Preclampsia with SF 3. Footling breech presentation Postoperative Diagnosis: Same, delivered Indications: This is a 28 y.o. at 34w1d EGA who was admitted at 31+4 for PEC with SF. Her induction was started on 09/20 and she progressed to 6cm. At 7:08 she felt the urge to push. On exam she was 6-7/90 with a bulging bag of water and no palpable parts. On bedside US she was found to be footling breech.The patient was counseled on the risks, benefits and alternatives to the procedure and was verbally consented prior to going back to the OR Findings: 1. Viable male infant born at 7:29 with Apgars of 2 at 1 minute and 7 at 5 minutes, 9 at 10min weight tbd. 2. Normal uterus, tubes and ovaries. Narrative: The pt was taken to the operating room with an IV in place where general anesthesia was found to beadequate. 2 grams of cephazolin were given prior to incision based on patient weight. She was prepped and draped in the normal sterile fashion in the dorsal supine position with a leftward tilt. An allis test was performed to ensure adequate anesthesia. A Pfannenstiel incision was made with the scalpel and carried down to the underlying layer of fascia which was scored in the midlines. The fasciawas then dissected bluntly. The superior aspect of the fascial incision was elevated, and the underlying rectus muscles dissected off bluntly. Attention was then turned to the inferior aspect of this incision, which was grasped, tented out with rajat clamps, and the rectus muscle dissected off bluntly then sharply. The rectus muscles were then in the midline and the peritoneum identified and entered bluntly. This incision was then extended laterally under tension until the uterus waswell visualized. Brief abdominal survey revealed no abnormalities. The bladder blade was inserted over the bladder. The lower uterine segment was incised in a transverse fashion with the scalpel. The uterine incisionwas then extended laterally using blunt dissection. The bladder blade was removed and the infant's feet delivered atraumatically and the body and head were delivered using the usual breech maneuvers.The cord was clamped and cut and the infant was handed off to the waiting pediatric care providers.The placenta was then removed with gentle traction, the uterus exteriorized, and the uterus was cleared of all clots and debris. The uterine incision was repaired with a 0 vicryl suture in a running, locked fashion. A second layer was created with the same suture in an imbricating fashion with excellent hemostasis. The uterus was then returned to the abdomen. The gutters were cleared of all clotsand debris and irrigated with sterile saline soaked sponges. The fascia was reapproximated with 0 vicryl. The subcutaneous tissue was reapproximated with 2-0 plain gut. The skin was closed with 3-0 Monocryl. The patient tolerated the procedure well. Sponge, lap and needle counts were correct times two. Thepatient was taken to [place] [address] PACU in stable condition. No qualified resident was available for the procedure. Estimated blood loss: 600 IV fluids: 1 L Urine Output: 125 cc Specimens Sent: placenta Retained Materials: Clemens Complications: none Disposition: M7 then B7 Jacki Thomson MD 09/22/23 8:50 documented in this encounter Miscellaneous Notes * Plan of Care - Lotus Trammell RN - 09/25/2023 1316 EDT Problem: Daily Care Plan Goals Goal: Care Plan Documentation Outcome: Met This Shift Flowsheets (Taken 09/25/2023 0835) Area of Focus: GI//Elimination Goal This Shift: will have a bowel movement Note: D: Stable PP pt. Discharging to home/self care. Wanted to have a bowel movement prior to leaving. A: Demonstrated/assisted patient to obtain/watch discharge videos via Stat. certificate, and, and parentage form completed/collected. Offered home health referral. Patient given opportunity toask questions. Will go get a BP cuff to pharmacy downstairs. Fleet enema given R: Pt verbalized/demonstrated understanding of teaching, has completed the d/c videos. Pt home health referral Declined. Patient/Family questions answered and AVS signed/collected. Had a small BM after Fleet * Plan of Care - Lotus Trammell RN - 09/25/2023 8940 EDT Problem: Daily Care Plan Goals Goal: Care Plan Documentation Outcome: Met This Shift Flowsheets (Taken 09/25/2023 0809) Area of Focus: GI//Elimination Goal This Shift: will have a bowel movement Note: D: Stable PP pt. Discharging to home/self care. Wanted to have a bowel movement prior to leaving. A: Demonstrated/assisted patient to obtain/watch discharge videos via Stat. certificate, and, and parentage form completed/collected. Offered home health referral. Patient given opportunity toask questions. Will go get a BP cuff to pharmacy downstairs. Fleet enema given R: Pt verbalized/demonstrated understanding of teaching, has completed the d/c videos. Pt home health referral Declined. Patient/Family questions answered and AVS signed/collected. Had a small BM after Fleet * Note - Sharon Frank RN - 09/25/2023 1243 EDT Images from the original note were not included. The Consult Progress Note Consult Requested By: Routine NICU parent visit Reason for Consult: Prematurity and /maternal separation Subjective: Pumping is going well, I just pumped 80mL and sent over 160mL this morning! Objective: Date of : 09/22/2023 Time of Delivery: 728 Type of Delivery: Low Segment Transverse [1059] Weight: Gestational Age: 34 1/7 : 2 @ 1 minute 7 @ 5 minutes GBS and Sepsis Risk Score: Lab Results Component Value Date GBSPCR Negative 09/21/2023 N/A EOS score: 0.06 calculated at Anesthesia: Labor analgesia: None Delivery anesthesia: General anesthesia, Adjunctive analgesia: Ketorolac, Anesthetic complications: None Additional comments: STEPHANIE as pt 7cm with footling breech and no epidural History/ Complications: 28 y.o. 34 1/7 Scheduled Complications: Delivery Blood Loss 09/22/23 0718 - 09/23/23 0729 Filed Blood Loss- Anesthesia 600 mL Total 600 mL Maternal Lab: Lab Results Component Value Date HCT 25.7 (L) 09/23/2023 Lab: No results found for: TCB No results found for: TBIL No results found for: CRP History: BF both of her older children Social History: Lives with Hong and their older children in [place], [place] Medical History: Maternal Medical History: PEC c SF, marijuana Current Maternal Medications: acetaminophen (TYLENOL) tablet 1,000 mg, oral, Q8H PRN calcium GLUconate 100 mg/mL (10%) injection 1,000 mg, intravenous, PRN docusate sodium (COLACE) capsule 200 mg, oral, DAILY ibuprofen (MOTRIN) tablet 800 mg, oral, Q8H PRN ketOROLAC (TORADOL) 30 mg/mL (1 mL) injection, , labetalol (NORMODYNE) tablet 200 mg, oral, Q12H lactated ringers (LR) infusion, intravenous, CONTINUOUS ondansetron (PF) (ZOFRAN) 4 mg/2 mL injection, , ondansetron (PF) (ZOFRAN) injection 4 mg, intravenous, Q4H PRN oxyCODONE (ROXICODONE) immediate release tablet 2.5-5 mg, oral, Q4H PRN polyethylene glycol 3350 (MIRALAX) packet 17 g, oral, DAILY sodium chloride (OCEAN) 0.65 % nasal spray 1 [place], nasal - both, Q2H PRN sodium chloride 0.9 % (flush) flush 5 mL, intravenous, Q8H sodium phosphate (FLEET SALINE) enema 1 Enema, rectal, Daily PRN Maternal Anatomy: Did not assess at this visit Pertinent Infant History: none Current Infant Medications: Information for the patient's : James Young [[id number]] Breast Milk Identification, oral, PRN dextrose 10 %-1/4 NS with KCl 20 mEq/L infusion, intravenous, CONTINUOUS sucrose 24% (TOOTSWEET) solution 0.1-0.3 mL, oral, PRN Anatomy: MARGIE Infants Current Weight: (!) 1770 g (3 lb 14.4 oz) Change from Weight: -5% 24 hour I/O: See NICU chart Information for the patient's : James Young [[id number]] Output for the past 24 hrs: Stool Occurrence Emesis Occurrence Emesis Appearance Emesis Amount (script) 09/25/23 0530 1 -- -- -- 09/25/23 0309 -- 1 Yellow Small 09/25/23 0200 -- 1 Yellow Small 09/25/23 0000 1 0 -- -- 09/24/23 2004 1 0 -- -- 09/24/23 1730 1 -- -- -- 09/24/23 1340 1 -- -- -- Observation: Introduced self/role Reviewed how things have been going, Hasmukh reports pumping is going well, she is pumping 80-160mL and feeling slightly engorged. She reports knowing she should pump q2-3hrs, but hasn't been d/t wanting rest. Reviewed engorgement/treatment, pumping frequency, breast milk storage and transport and proper cleaning of pump parts Her primary RN, also an IBCLC set her up with a direct distributed Spectra this morning. Hasmukh with questions regarding possibility of successful exclusive given in NICU. Reviewed feeding progression, tools and support for transitioning to breast when is ready Patient Education:Prevention/treatment of engorgement and Pumping instructions; use of symphony pump on preemie setting, how to set suction pressure, how to determine flange size, how frequently to pump, how long to pump, and how to clean pump parts Also, discussed: nutrition and rest Assessment: Infant in NICU Mother: Maternal milk supply: appropriate and colostrum/milk easily expressible Maternal anatomy: No concerning findings Maternal comfort: comfortable Maternal knowledge: Able to verbalize/demonstrate understanding of topics discussed today and Gaining understanding: requires some reinforcement Additional maternal concerns: none Plan: Double pump using Initiation setting for minimum of 8 x/ 24hrs and include hand expression each time, as much as able Pump close to every 2 hours during the day, so can take longer stretches at night No longer than one 4 hour stretch between pumpings at night. Use Initiation pump settings until 3 pumping sessions yield 20mL or more, then switch to Maintain mode Skin to skin with baby as much as possible Handouts given: Guide to feeding and milk collection and storage guidelines, NICU parent support group info Pump Equipment: Double electric: Spectra Time spent: In Room: 20 face to face; Out of room: 15 discuss with nurse, chart review, documentation Inpatient LC to see next: Planing discharge today Outpatient Follow Up: NICU support during inpatient stay SHARON FRANK RN 09/25/2023 12:43 * Plan of Care - Opal Goodson RN - 09/25/2023 1380 EDT D: Pt day three post CS delivery of baby boy at 0729, reports/rates incisional pain 6/10. A: Interventions provided include medications(see eMAR), reposition, and rest. R: Pt reports pain after intervention 3/10. Denies need for further intervention at this time. OPAL GOODSON RN Problem: Daily Care Plan Goals Goal: Care Plan Documentation Outcome: Ongoing Flowsheets (Taken 09/24/20232124) Area of Focus: Pain/ Comfort Goal This Shift: pt to report adequate pain control Problem: Pain: Goal: Pain level will decrease Outcome: Ongoing * Plan of Care - Liliana Avila RN - 09/24/2023 0605 EDT Problem: Daily Care Plan Goals Goal: Care Plan Documentation Flowsheets Taken 09/24/2023 0604 by Liliana Avila RN Goal This Shift: pain goal of 5 or below Taken 09/23/2023 1735 by Nona Pollard RN Area of Focus: Pain/ Comfort Note: D: Pt reports/rates incisional pain 6/10. A: Interventions provided include medications(see eMAR), reposition, and rest. R: Pt reports pain after intervention 10. Denies need for further intervention at this time. * Plan of Care - Nona Pollard RN - 09/24/2023 0008 EDT Problem: Daily Care Plan Goals Goal: Care Plan Documentation 09/24/2023 0008 by Nona Pollard RN Outcome: Met This Shift Flowsheets (Taken 09/23/2023 1735) Area of Focus: Pain/ Comfort Goal This Shift: Patient wll maintain pain level below 4/10 Data: Patient in 2nd day post C section, patient received Mag Sulfate. Action: Patient complaining of pain ranging from 3/10-6/10, patient has been receiving Oxycodone 10mg PO in addition to Acetaminophen and Ibuprofen. Response: Continue to assess pain and medicate as ordered. NONA POLLARD RN 09/24/2023 0:09 * Note - iLndsay Hinojosa RN - 09/23/2023 1820 EDT Images from the original note were not included. The Consult Initial Consult Consult Requested By: Routine NICU parent visit Reason for Consult: Prematurity and Infant/maternal separation Subjective: Patient was in pain and drowsy when I visited. Pumping is going okay. I don't have as much milk as I did with my other kids. Objective: Date of : 09/22/2023 Time of Delivery: 728 Type of Delivery: Low Segment Transverse [1059] Weight: Gestational Age: 34 1 : 2 @ 1 minute 7 @ 5 minutes GBS and Sepsis Risk Score: Lab Results Component Value Date GBSPCR Negative 09/21/2023 N/A EOS score: 0.06 calculated at Anesthesia: Labor analgesia: None Delivery anesthesia: General anesthesia, Adjunctive analgesia: Ketorolac, Anesthetic complications: None Additional comments: GETA as pt 7cm with footling breech and no epidural History/ Complications: 28 y.o. 34 04/05 Scheduled Complications: Delivery Blood Loss 09/22/23 0718 - 09/23/23 0729 Filed Blood Loss- Anesthesia 600 mL Total 600 mL Maternal Lab: Lab Results Component Value Date HCT 25.7 (L) 09/23/2023 Infant Lab: No results found for: TCB No results found for: TBIL No results found for: CRP History: BF both of her older children Social History: Lives with Hong and their older children in [place], [place] Medical History: Maternal Medical History: PEC c SF, marijuana Current Maternal Medications: acetaminophen (TYLENOL) tablet 1,000 mg, oral, Q8H PRN calcium GLUconate 100 mg/mL (10%) injection 1,000 mg, intravenous, PRN docusate sodium (COLACE) capsule 200 mg, oral, DAILY ibuprofen (MOTRIN) tablet 800 mg, oral, Q8H PRN ketOROLAC (TORADOL) 30 mg/mL (1 mL) injection, , labetalol (NORMODYNE) tablet 200 mg, oral, Q12H lactated ringers (LR) infusion, intravenous, CONTINUOUS ondansetron (PF) (ZOFRAN) 4 mg/2 mL injection, , ondansetron (PF) (ZOFRAN) injection 4 mg, intravenous, Q4H PRN oxyCODONE (ROXICODONE) immediate release tablet 5-10 mg, oral, Q4H PRN polyethylene glycol 3350 (MIRALAX) packet 17 g, oral, DAILY sodium chloride (OCEAN) 0.65 % nasal spray 1 [place], nasal - both, Q2H PRN sodium chloride 0.9 % (flush) flush 5 mL, intravenous, Q8H Maternal Anatomy: no abnormalities noted Pertinent Infant History: none Current Infant Medications: Information for the patient's : James Young [[id number]] Breast Milk Identification, oral, PRN dextrose 10 % (D10W) infusion, intravenous, CONTINUOUS sucrose 24% (TOOTSWEET) solution 0.1-0.3 mL, oral, PRN Infant Anatomy: MARGIE Infants Current Weight: (!) 1870 g (4 lb 2 oz) Change from Weight: 1% 24 hour I/O: See NICU chart Information for the patient's : James Young [[id number]] Output for the past 24 hrs: Emesis Occurrence Emesis Appearance Emesis Amount (script) 09/22/23 2302 1 Undigested food;Mucous;Other (Comment) Large Observation: Visited Hasmukh briefly this evening to offer support. She was in pain at the time of my visit, so visit was short. Reviewed pump operation, pumping frequency, milk collection & storage guidelines. Answered questions about these topics. Hasmukh stated that she got 30 cc the last time she pumped, but it wasn't as much as what she got with her other two. Assured her that this is more than many people get at this point, and she may find that she gets less before she starts to get more. Encouraged to keep pumping Q 3 hours. Hasmukh and Hong denied any other questions at this time. Patient Education:Pumping instructions; use of symphony pump on preemie setting, how to determine flange size, how frequently to pump, and how long to pump Also, discussed: none yet Assessment: Infant in NICU Mother: Maternal milk supply: appropriate and colostrum/milk easily expressible Maternal anatomy: No concerning findings Maternal comfort: uncomfortable Maternal knowledge: Able to verbalize/demonstrate understanding of topics discussed today and Gaining understanding: requires some reinforcement Additional maternal concerns: none Plan: Double pump using Initiation setting for minimum of 8 x/ 24hrs and include hand expression each time, as much as able Pump close to every 2 hours during the day, so can take longer stretches at night No longer than one 4 hour stretch between pumpings at night. Use Initiation pump settings until 3 pumping sessions yield 20mL or more, then switch to Maintain mode Skin to skin with baby as much as possible Handouts given: Guide to feeding and milk collection and storage guidelines, NICU parent support group info Pump Equipment: Need to ask Time spent: In Room: 10 face to face; latch observed Out of room: 20 discuss with nurse, chart review, documentation Inpatient LC to see next: 09/23 Outpatient Follow Up: TBD LINDSAY HINOJOSA RN IBCLC 09/23/2023 18:21 * L&D Delivery Note - Jacki Thomson MD - 09/22/2023 0840 EDT Delivery Information Hasmukh Young is a 28 y.o. at 34w1d delivered by Low Segment Transverse . Joe Young [id number] at Gestational Age: 34w1d, Delivered by Low Segment Transverse , Weighed , 6 /9 , Sent to NICU after delivery. Labor and Delivery comments: Pt was induced at 34w1d in the context of her prior dx of preeclampsiawith severe features. Bedside US was performed prior to the intitiation of her IOL, and fetus was cephalic. The patient's cervix was checked this AM when the pt felt that she was needing to push. Shewas found to be 7cm dilated on exam, with a footling breech fetus. This was verbalized to the patien t- she had no neuraxial anesth and requested GETA. Given her exam and rapid cervical change, the decision was made to in fact use GETA for anesthesia. The c/s was started by both Drs. Thomson and En, with Dr. Choi then scrubbing Dr. Brice out after repair of the uterus. See op report for further details. Maternal: Delivery Plan Outcome Planned home ? Not planned External cephalic version attempt indicated? No Delivery as waterbirth? No TOM after : Not applicable Delivery Indications Maternal Indications for delivery/comments: Preeclampsia with severe features Indications for delivery/comments: Not applicable Intrapartum Medication Intrapartum preeclampsia: Yes Intrapartum Mg: Yes Intrapartum Mg Indication: Preeclampsia Labor Labor onset: Induced Cervical ripening/induction agent: Balloon;Misoprostol;Oxytocin Labor augmentation: None Augmentation indication/comments: N/A Sepsis Risk Scores (based on [facility] incidence of 0.07/999 live births) Calculated Risk at Score: Adjusted Score (Well Appearing): Adjusted Score (Equivocal): Adjusted Score (Clinical Illness): Sepsis Risk Factors used in score calculation Gestational Age: w, d Mother's max temp within 12 hours prior to delivery: Length of Rupture of Membranes: Hours Maternal GBS Status: Intrapartum Antibiotics: Other Intrapartum Infection Factors PROM >= 18 Hours: N/A Maternal Fever >= 38 C: N/A Maternal Tachycardia > 100 bpm: N/A Tachycardia > 160 bpm: N/A Uterine Tenderness: N/A Foul Odor of Amniotic Fluid: N/A Intra-Amniotic Infection N/A HIV Status/Treatment: Not indicated Hepatitus B Surface Antigen: Negative Syphilis: Negative Assessment monitoring: Contiunous - External heart rate characteristics/comments: Cat 1 demise: N/A Anesthesia Labor analgesia: None Delivery anesthesia: General anesthesia, Adjunctive analgesia: Ketorolac, Anesthetic complications: None Additional comments: GETA as pt 7cm with footling breech and no epidural Maternal Delivery Delivery type: Low Segment Transverse Presentation: Breech Position: SP footling breech- fetus flipped in in labor after being cephalic at start of IOL. indication: Malpresentation, Forceps Attempted: No Vacuum Attempted: No Operative Vaginal Delivery Indication: N/A Station - Initial Application: N/A Details of Shoulder Dystocia (if applicable) Dystocia Present? No Maneuvers Performed (if applicable) Placenta Delivered: 09/22/2023 7:30 Delivery method: Spontaneous;Controlled Cord Traction Morphology: Normal Disposition: Lab Cord Details Vessels: 3 Vessels Complications: None Nuchal intervention: Nuchal cord description: Cord around: Number of loops: Gases Sent? Yes Cord Blood Sent: Stem cell collection (by )? No Comments: Lacerations/Episiotomy Laceration Repaired? Perineal: None Periurethral: Labial: Sulcus: Vaginal: Cervical: Episiotomy: None Indication: Repair suture: None Procedures Additional Procedures: None Hemorrhage (if applicable) hemorrhage: None Blood Loss Mother: Hasmukh Young #[id number] Start of Mother's Information Delivery Blood Loss 09/22/23 0718 - 09/22/23 0840 Filed Blood Loss- Anesthesia 600 mL Total 600 mL End of Mother's Information Mother: Hasmukh Young #[id number] Uterotonics/PPH Procedures: Uterine massage, Oxytocin, Blood Products Transfused: (if applicable) Labor Length Duration of 1st Stage: hours minutes Duration of 2nd Stage: hours minutes Duration of 3rd Stage: 0 hours 0 minutes Duration of Cord Clamp Delay: seconds Precipitous Labor (<3 hours): No Prolonged Labor (>20 hours): No [place]: Date of : 09/22/2023 Time of : 728 Sex: male Weight (grams): Length (in): Head circumference (in): Observed anomalies, comments: Meconium Present at Delivery: No (<37 wks): Yes Late (34-37 wks): Yes Steroid Course: Full course Indication: Medically indicated steroids PPROM Gestational Age: None APGARS Living Status: Living Totals: /-/- Resuscitation Resuscitation: N/A Delivery Personnel Delivering Clinician: JACKI THOMSON Additional Personnel: KYLAH BRICE;APOLINAR CHOI;DASIA CATALAN;KYLAH HERNÁNDEZ ROM Duration: (Delivered) 1m Induction Duration (if applicable): 18 hours 59 minutes 23 seconds Attending attestation: I was present and scrubbed for the entire delivery. Jacki Thomson MD 09/22/23 9:27 * Plan of Care - Manuel Shi RN - 09/20/2023 2214 EDT Problem: Safety: Goal: Will remain free from falls Outcome: pt. Will remain free of falls. B/p will remain in normal range Problem: Lifecycle: Antepartum: Goal: Chance of risk for complications during antepartum period will decrease Outcome: vital signs will remain stable Pt. Unsure of plan for delivery. Has changing opinions of providers on when induction may be. Remains positive about time as inpatient and flexibility for when induction occurs. Reports feeling well. * Plan of Care - Elizabeth Mendes RN - 09/20/2023 1354 EDT Data: Antepartum @ 33+6 weeks gestation. admitted for PEC w/SF. Action: Monitor maternal/ wellbeing. Educated patient on s/sx to report. Response: Patient verbalizes/demonstrates understanding s/sx to report. NST reactive, +FM, pt denies bleeding, leaking or annemarie. maintained. ELIZABETH MENDES RN * Plan of Care - Jesus Thurston RN - 09/20/2023 0119 EDT Problem: Daily Care Plan Goals Goal: Care Plan Documentation Outcome: Ongoing Flowsheets (Taken 09/19/20232102) Area of Focus: Utero Placental Perfusion Goal This Shift: maintain Data: Antepartum @ 33+6 weeks gestation. IP for PEC w/SF. Action: Monitor maternal/ wellbeing. Educated patient on s/sx to report. Response: Patient verbalizes/demonstrates understanding s/sx to report. NST reactive, +FM, pt denies bleeding, leaking. Reports occ cramping throughout day. maintained. * Plan of Care - Elizabeth Mendes RN - 09/19/2023 1848 EDT Data: Antepartum @ 33+5 weeks gestation. IP for PEC w/SF. Action: Monitor maternal/ wellbeing. Educated patient on s/sx to report. Response: Patient verbalizes/demonstrates understanding s/sx to report. NST reactive, +FM, pt denies bleeding, leaking or annemarie. maintained. ELIZABETH MENDES RN * Plan of Care - Jesus Thurston RN - 09/19/2023 0200 EDT Problem: Daily Care Plan Goals Goal: Care Plan Documentation Outcome: Ongoing Flowsheets (Taken 09/18/2023 195) Area of Focus: Utero Placental Perfusion Goal This Shift: maintain Data: Antepartum @ 33+5 weeks gestation. IP for PEC w/SF. Action: Monitor maternal/ wellbeing. Educated patient on s/sx to report. Response: Patient verbalizes/demonstrates understanding s/sx to report. NST reactive, +FM, pt denies bleeding, leaking. Mild cramps and occ vineet monae per pt. maintained. * Plan of Care - Jesus Thurston RN - 09/18/2023 0342 EDT Problem: Daily Care Plan Goals Goal: Care Plan Documentation Outcome: Ongoing Flowsheets (Taken 09/17/2023 1928) Area of Focus: Utero Placental Perfusion Goal This Shift: maintain Data: Antepartum @ 33+4 weeks gestation. IP for PEC w/SF. Action: Monitor maternal/ wellbeing. Educated patient on s/sx to report. Response: Patient verbalizes/demonstrates understanding s/sx to report. NST reactive with 1 variable decel, +FM, pt denies bleeding or leaking. Reports occasional mild cramping. maintained. * Plan of Care - Ashley Scott RN - 09/17/2023 0104 EDT Data: Stable antepartum @ 33+3 weeks gestation. admitted for PEC w/SF. Action: Monitor maternal/ wellbeing. Educated patient on s/sx to report. Response: Patient verbalizes/demonstrates understanding s/sx to report. FHR WNL, +FM, pt denies bleeding or leaking. maintained. Unchanged mild, occasional contractions. States makes it somewhat difficult to fall asleep, but once asleep was able to rest comfortably. RN observed patient sleeping soundly at hourly checks. Problem: Daily Care Plan Goals Goal: Care Plan Documentation Outcome: Met This Shift Flowsheets (Taken 09/17/2023 0030) Area of Focus: Utero Placental Perfusion Goal This Shift: Maintain * Plan of Care - Xochitl Lima RN - 09/16/2023 1224 EDT Mother is 33 + 2 weeks with preeclampsia with severe features. She is to be delivered next Thursday. Her goal is to keep a healthy baby inside until then and to keep her bp wnl. Data: patient nst reactive but she did have a decel with a low of 94 that took 4 minutes to return all the way back to baseline. She was turned to her left side and dr jean marie huynh strip said leaveher on until 1020. Pt. [place] one ctx, mild lasting 50 seconds. She at times is cramping That comes and goes. Mom not dizzy today. Action: push fluids, encourage rest, help with diversional activities , offer emotional support. Mom did have a nicu visit yesterday and would like her to have one when he is next here. Response: no signs of labor, nst reactive, mom had type and screen drawn, has no sl in place, dr/ yesterday ok with that. Problem: Daily Care Plan Goals Goal: Care Plan Documentation Outcome: Met This Shift Problem: Lifecycle: Antepartum: Goal: Chance of risk for complications during antepartum period will decrease Outcome: Met This Shift No bleeding , no leaking, no regular ctx. Baby moving * Plan of Care - Ralf Renteria RN - 09/16/2023 0517 EDT Problem: Daily Care Plan Goals Goal: Care Plan Documentation Outcome: Met This Shift Flowsheets (Taken 09/15/2023 1933) Area of Focus: Utero Placental Perfusion Goal This Shift: Maintain Note: Data: Antepartum @ 33+2 weeks gestation. Admitted for PEC w/SF. Action: Monitor maternal/ wellbeing. Educated patient on s/sx to report. Response: Patient verbalizes/demonstrates understanding s/sx to report. NST reactive, +FM, pt denies bleeding or leaking. Mild annemarie at times. maintained. * Note - Lindsay Hinojosa RN - 09/15/2023 1850 EDT Brief Note: Visited Hasmukh per request, as she had a few questions. Family was visiting at the time of my visit. Hasmukh reports that she would like to have her colostrum available for supplementation after she delivers over [facility] or formula. She says she has permission to pump starting on Thursday09/20/23, the day before her planned IOL, and she would like help setting up her pump by Thursday. This was noted on the assignment on 09/15/23. Will f/u as needed. LINDSAY HINOJOSA RN, RN IBCLC 09/15/2023 18:54 * Plan of Care - Xochitl Lima RN - 09/15/2023 1630 EDT Problem: Daily Care Plan Goals Goal: Care Plan Documentation Outcome: Met This Shift Flowsheets (Taken 09/15/2023 0853) Goal This Shift: nicu tour done. maintian with normal bp . plan to deliver mom this next thursday Data: Antepartum @ 33+1 weeks gestation. admitted for PEC w/SF. Action: Monitor maternal/ wellbeing. Educated patient on s/sx to report. Response: Patient verbalizes/demonstrates understanding s/sx to report. NST reactive, +FM, pt denies bleeding, leaking or annemarie. maintained. Plan is for delivery on Thursday. Family visiting this afternoon. Mom gained 4 lbs today, dr hernandes aware. Had headache in afternoon .Bp ok at that time. * Plan of Care - Elissa Morillo RN - 09/15/2023 0211 EDT Problem: Daily Care Plan Goals Goal: Care Plan Documentation Outcome: Ongoing Flowsheets (Taken 09/15/2023 0000) Area of Focus: Utero Placental Perfusion Goal This Shift: maintain Data: Antepartum @ 33+1 weeks gestation. IP for PEC w/o SF. Action: Monitor maternal/ wellbeing. Educated patient on s/sx to report. Response: Patient verbalizes/demonstrates understanding s/sx to report. Doppler HR tones wnl. +FM, pt denies bleeding, leaking or annemarie. maintained. * Plan of Care - Bronwyn Lang RN - 09/14/2023 2234 EDT Data: Antepartum @ 33+0 weeks gestation. IP for PEC. Action: Monitor maternal/ wellbeing. Educated patient on s/sx to report. Response: Patient verbalizes/demonstrates understanding s/sx to report. NST reactive, +FM, pt denies bleeding, leaking or annemarie. maintained. IV flushed at 1720; leaking. D/c'd IV. MD aware that pt has no IV at this time. IV team came to seepatient and RN recommended that just in case IV's not be placed. Patient is willing to do whatever Mds recommend. Placed on LC list per patient request. She has questions about at 34 weeks. Also providedthe Injoy booklet that patient is reading. She has questions about circumcision. * Plan of Care - Xochitl Lima RN - 09/14/2023 1423 EDT Problem: Daily Care Plan Goals Goal: Care Plan Documentation Outcome: Met This Shift Flowsheets (Taken 09/14/2023 1423) Area of Focus: Utero Placental Perfusion Mothers goal for her focus today was to keep a healthy baby inside longer and to have normal bp. Data: mom has some mild cramping at times a one out of 10. Mom had a headache 2 out of 10 but she felt it was lack of caffeine related and it went away after she had one cup of coffee. No bleeding, no leaking, baby moving, nst reactive. Action: offer emotional support, watch for change in assessment. Cluster care so she can rest. Helpher with diversional activities Response: no signs of distress, bp fluctuates greatly. Mom was told they will deliver her in 1 week probably. * Plan of Care - Annette Toth RN - 09/14/2023 0155 EDT Problem: Daily Care Plan Goals Goal: Care Plan Documentation Outcome: Met This Shift Flowsheets (Taken 09/13/2023 2100) Area of Focus: Utero Placental Perfusion Goal This Shift: Maintain Data: Antepartum @ 33+0 weeks gestation. IP for PEC w/SF. Action: Monitor maternal/ wellbeing. Educated patient on s/sx to report. Response: Patient verbalizes/demonstrates understanding s/sx to report. NST reactive, +FM, FHT 140,pt denies bleeding or leaking. maintained. * Plan of Care - Dasia Piper RN - 09/13/2023 1300 EDT Problem: Daily Care Plan Goals Goal: Care Plan Documentation Outcome: Met This Shift Flowsheets (Taken 09/13/2023 0916) Goal This Shift: maintain Note: Data: Antepartum @ 32+6 weeks gestation. IP for PEC w/SF. Pt reports feeling good today. Action: Monitor maternal/ wellbeing. Educated patient on s/sx to report. Response: Patient verbalizes/demonstrates understanding s/sx to report. NST reactive, +FM, pt denies bleeding, leaking or annemarie. maintained. * Plan of Care - Annette Toth RN - 09/13/2023 0109 EDT Problem: Daily Care Plan Goals Goal: Care Plan Documentation Outcome: Met This Shift Flowsheets (Taken 09/12/2023 2200) Area of Focus: Utero Placental Perfusion Goal This Shift: Maintain Data: Antepartum @ 32+6 weeks gestation. IP for PEC w/SF. Action: Monitor maternal/ wellbeing. Educated patient on s/sx to report. Response: Patient verbalizes/demonstrates understanding s/sx to report. NST reactive, +FM, FHT 140,pt denies bleeding, leaking or annemarie. maintained. * Plan of Care - Kenneth Gaona RN - 09/12/2023 0241 EDT Problem: Daily Care Plan Goals Goal: Care Plan Documentation Flowsheets (Taken 09/11/2023 194) Area of Focus: Utero Placental Perfusion Goal This Shift: maintain Note: Data: Undelivered patient here at 32w5d for pec w/sf. VSS. Holter monitor in place due to syncopal episodes. Action: Maintain Response: Patient denies bleeding or annemarie overnight and endorses movement. Pt denies any gushes of fluid but does report occasionally feeling moist (unchanged from the past few days, MD's aware per patient). KENNETH GAONA RN 09/12/2023 2:38 Problem: Safety: Goal: Will remain free from falls Outcome: Ongoing * Plan of Care - Tracee Coburn RN - 09/10/2023 2240 EDT Problem: Daily Care Plan Goals Goal: Care Plan Documentation Outcome: Met This Shift Flowsheets (Taken 09/10/2023 2040) Area of Focus: Utero Placental Perfusion Goal This Shift: maintain Data: Antepartum @ 32+4 weeks gestation admitted for PEC w/SF. Action: Monitor maternal/ wellbeing. Educated patient on s/sx to report. Response: Patient verbalizes/demonstrates understanding s/sx to report. NST reactive. Patient monitored for 60 minutes due to decelerations, MD Harmon notified. +FM, pt denies bleeding, leaking or annemarie. maintained. Stable vital signs overnight with no reported symptoms of preeclampsia. * Plan of Care - Favian Andrade RN - 09/10/2023 1749 EDT Problem: Lifecycle: Antepartum: Goal: Chance of risk for complications during antepartum period will decrease Outcome: Ongoing Note: D: AP pt here @ 32+3 admitted for PEC w/ SF. Complicated with episodes of SOB and dizziness for the second day while off unit. Action: Assess VS, NST completed, notified, Orthostatic BP's completed. Response: NST reactive. Pt continues to complain of dizziness while up OOB. Has been educated to ring for assistance when getting OOB and to stay on unit until further notice. * Plan of Care - Tracee Coburn RN - 09/09/2023 2117 EDT Images from the original note were not included. Problem: Daily Care Plan Goals Goal: Care Plan Documentation Outcome: Met This Shift Flowsheets (Taken 09/09/2023 194) Area of Focus: Utero Placental Perfusion Goal This Shift: maintain Problem: Daily Care Plan Goals Goal: Care Plan Documentation Outcome: Met This Shift Flowsheets (Taken 09/08/20232021) Area of Focus: Utero Placental Perfusion Goal This Shift: maintain Data: Antepartum @ 32+3 weeks gestation. admitted for PEC w/SF. Action: Monitor maternal/ wellbeing. Educated patient on s/sx to report. Response: Patient verbalizes/demonstrates understanding s/sx to report. NST reactive (x1 variable),+FM, pt denies bleeding, leaking or annemarie. maintained. Scheduled labetalol held dueto low BP. Overall stable VS overnight. * Plan of Care - Tracee Coburn RN - 09/08/2023 2115 EDT Problem: Daily Care Plan Goals Goal: Care Plan Documentation Outcome: Met This Shift Flowsheets (Taken 09/08/20232021) Area of Focus: Utero Placental Perfusion Goal This Shift: maintain Data: Antepartum @ 32+2 weeks gestation. admitted for PEC w/SF. BP stable overnight. Action: Monitor maternal/ wellbeing. Educated patient on s/sx to report. Response: Patient verbalizes/demonstrates understanding s/sx to report. NST reactive (x2 variables), +FM, pt denies bleeding, leaking or annemarie. maintained. * Note - Rea Segal RN - 09/08/2023 6546 EDT Images from the original note were not included. Consult for Undelivered Patient Consult ordered by: RN S: Undelivered at 32+1 wks for PEC w/ Sfs I have been leaking a lot! I have 53 ounces saved already. I was even leaking in between having my5 yo daughter and this . I felt kaushik because my mom was never able to produce milk Medical History: Complications: - cholecystitis w/o obstruction - previous dx of gHTN - PEC w/ SF in prior pregnancies 2x, induced at 35 and 36 weeks - Hx of IUGR in previous - hx infant with GBS septicemia at 3 months of age - anxiety Medications: --Current: History: 6.5 yo son 5 yo daughter Successful Over supply - donated milk Objective: Alert, well appearing gravid patient (eating dinner) Assessment/Plan: From note: 28 y.o. @ 32w1d with PEC w SF diagnosed at 31+4, received procardia x1 and magnesium gtt during transport to [facility]. Low normotensive yesterday with BPS 110s/70s on labetalol 200mg BID. Finished 24 hour urine yesterday. Repeat PEC labs yesterday wnl . May need to down titrate labetalol to 100mg Bid given dizziness and relative hypotension. Plan: Known hx of hyperlactation (undiagnosed cause) - not bothering patient at this time, reviewedpossible causes Continue to monitor leaking milk (okay to save) After delivery - close monitoring with patient/OBGYN care regarding production and if pursuing cause makes sense Plans to follow-up with the IBCLC in her area when she is discharged No futher needs at this time - patient aware she can ask to see anytime Marlin MSN [employer]-BC IBCLC * Plan of Care - Ronald Rosado RN - 09/08/2023 0300 EDT Problem: Daily Care Plan Goals Goal: Care Plan Documentation Outcome: Met This Shift Data: Antepartum @ 32+1 weeks gestation. admitted for PEC w/SF. Action: Monitor maternal/ wellbeing. Educated patient on s/sx to report. Response: Patient verbalizes/demonstrates understanding s/sx to report. +FM, pt denies bleeding, leaking or annemarie. maintained. RONALD ROSADO RN 09/08/2023 3:01 * Plan of Care - Alea Young RN - 09/07/2023 2121 EDT Problem: Daily Care Plan Goals Goal: Care Plan Documentation Flowsheets (Taken 09/07/20231921) Area of Focus: Utero Placental Perfusion Goal This Shift: maintain Data: Antepartum @ 32+0 weeks gestation. IP for PEC w/SF. Action: Monitor maternal/ wellbeing. Educated patient on s/sx to report. Response: Patient verbalizes/demonstrates understanding s/sx to report. NST reactive, +FM, pt denies bleeding, leaking or annemarie. maintained. * Note - Baylee Chan RN - 09/07/2023 1623 EDT Update to RN's and OB: Pt reports having issues with mastitis with her other children and stated she has leaked 51 oz since a few months with this . Pt reports having a large over-supply. Pt c/o breast discomfort and fullness and some with showering. Ice applied bilaterally and encouraged to wear a bra. Pt will nb placed on LC list. Addendum: Dr Zach Andres aware of hyperlactation and stated in a group chat that she will order a scanpost , Follow up to r/o an prolictinoma. Karine Chan RN, IBCLC * Plan of Care - Ezekiel Sandrine [facility] - 09/07/2023 1544 EDT 09/07/23 1544 Discharge Delay Risk Assessment 2. Hospitalization 2 Major Barrier day total 1-6 1 Minor or major discharge risk delay(s) present? No discharge barriers identified Does the patient meet criteria to be escalated? No Initial assessment status Initial assessment complete? Yes Sandrine Ezekiel [facility] [phone] (Epic secure chat preferred) * Plan of Care - Baylee Chan RN - 09/07/2023 1429 EDT Problem: Daily Care Plan Goals Goal: Care Plan Documentation Outcome: Met This Shift Problem: Lifecycle: Antepartum: Goal: Chance of risk for complications during antepartum period will decrease Outcome: Met This Shift Data: Antepartum @ 32+0 weeks gestation. IP for PEC w/SF. Action: Monitor maternal/ wellbeing. Educated patient on s/sx to report. Response: Patient verbalizes/demonstrates understanding s/sx to report. NST reactive, +FM, pt denies bleeding, leaking or annemarie. maintained. Pt had an episode of a higher B/P with some dizziness when she was off unit, ambulating. 153/96. Labetalol was held this am. Within 10 minutesof lying down, BP 132/80, OB requested Labetalol to be given at this time. S/s of dizziness dissipated. * Plan of Care - Viki Alvarado RN - 09/07/2023 0238 EDT Problem: Daily Care Plan Goals Goal: Care Plan Documentation Outcome: Met This Shift Flowsheets (Taken 09/07/2023 0103) Area of Focus: Utero Placental Perfusion Goal This Shift: Maintain Note: Data: Antepartum @ 32+0 weeks gestation. IP for PEC w/SF. Action: Assessed and VS per protocol. Monitored maternal/ wellbeing. Educated patient on s/sx to report. Response: AVSS. Patient verbalizes/demonstrates understanding s/sx to report. +FM, pt denies bleeding, leaking or annemarie. maintained. Continue to monitor. Problem: Safety: Goal: Will remain free from falls Outcome: Met This Shift Problem: Lifecycle: Antepartum: Goal: Chance of risk for complications during antepartum period will decrease Outcome: Met This Shift * Plan of Care - Alex-Julieta Gonsales RN - 09/06/2023 1006 EDT Problem: Daily Care Plan Goals Goal: Care Plan Documentation Outcome: Met This Shift Problem: Lifecycle: Antepartum: Goal: Chance of risk for complications during antepartum period will decrease Outcome: Met This Shift Data: Pt here at 31+5weeks with PEC w SF. 24 urine complete. Pt s/p mag. Pt on labetalol BID. On daily wts and I+O's. BID NST. SL x 2 in and patent. Action: VS and assessment per orders. NST completed, Beta complete at 1100. Educated s/s to report to staff Response: VSS, Continue to monitor and assist as needed * Plan of Care - Giovana Norman RN - 09/06/2023 0302 EDT Problem: Daily Care Plan Goals Goal: Care Plan Documentation Outcome: Met This Shift Flowsheets (Taken 09/06/2023 0143) Area of Focus: Utero Placental Perfusion Goal This Shift: Will maintain Problem: Safety: Goal: Will remain free from falls Outcome: Met This Shift Problem: Lifecycle: Antepartum: Goal: Chance of risk for complications during antepartum period will decrease Outcome: Met This Shift Data: Antepartum @ 31+6 weeks gestation. IP for PEC w/SF. S/p mag. I/Os. IV in place. Action: Monitor maternal/ wellbeing. Educated patient on s/sx to report. VS completed as ordered. Response: Patient verbalizes/demonstrates understanding s/sx to report. +FM, pt denies bleeding, leaking or annemarie. VSS. maintained. * Plan of Care - Julieta Segal RN - 09/05/2023 1415 EDT Problem: Daily Care Plan Goals Goal: Care Plan Documentation Outcome: Met This Shift Problem: Lifecycle: Antepartum: Goal: Chance of risk for complications during antepartum period will decrease Outcome: Met This Shift Data: Pt here at 31+4 weeks with PEC w SF. Currently on 24 hour urine until 2104. Pt s/p mag. Labetalol held this AM. On daily wts and I+O's. BID NST. PT had growth scan this AM. SL in and patent. Action: VS and assessment per orders. NST completed, 2nd dose Beta given at 1100. Educated s/s to report to staff Response: VSS, 24 hour urine intact. Continue to monitor and assist as needed * Plan of Care - Giovana Norman RN - 09/05/2023 0200 EDT Problem: Daily Care Plan Goals Goal: Care Plan Documentation Outcome: Met This Shift Flowsheets (Taken 09/04/20232213) Area of Focus: Utero Placental Perfusion Goal This Shift: Will maintain Problem: Safety: Goal: Will remain free from falls Outcome: Met This Shift Data: Antepartum @ 31+5 weeks gestation. admitted for PEC w/SF. Pt rating headache pain 2/10. 24hr urine started on 09/03 at 2105. Action: Monitor maternal/ wellbeing. Educated patient on s/sx to report. Admission paperwork filled out. Oriented to room, emergency call rodriguez use. I/Os. Response: Patient verbalizes/demonstrates understanding s/sx to report. +FM, pt denies bleeding, leaking. Pt endorsing occasional tightening with no pain. Pt able to sleep between care. maintained. documented in this encounter Plan of Treatment Pending Results Name Type Priority Associated Diagnoses Date /Time POC LD US FOLLOW-UP OB Imaging Routine 15:58 EDT Scheduled Orders Name Type Priority Associated Diagnoses Orde r Schedule POC LD US FOLLOW-UP OB Imaging Routine One Time for 1 O ccurrences starting 09/04/2023 until 09/04/2023 Scheduled Referrals Name Type Priority Associated Diagnoses Order Schedule PROVIDER FOLLOW-UP INSTRUCTIONS Outpatient Referral Routine Ordered: 09/25/2023 PROVIDER FOLLOW-UP INSTRUCTIONS Outpatient Referral Routine Ordered: 09/25/2023 PROVIDER FOLLOW-UP INSTRUCTIONS Outpatient Referral Routine Ordered: 09/25/2023 AMB CONS/FOLLOW UP OBSTETRICS Outpatient Referral Urgent Preeclampsia, severe, third trimester [O14.13] delivery delivered [O82] Expected: 09/27/2023 (Approximate), Expires: 09/24/2024 AMB CONS/FOLLOW UP HOME HEALTH SERVICES Outpatient Referral Routine/Next Available Preeclampsia, severe, third trimester [O14.13] Postural dizziness with near syncope delivery delivered [O82] Expected: 10/25/2023 (Approximate), Expires: 09/24/2024 documented as of this encounter Procedures Procedure Name Priority Date/Time Associated Diagnosis Comments ECG REPORT - SCANNED 09/29/2023 13:25 EDT ECG REPORT - SCANNED 09/29/2023 12:21 EDT ORDERS - SCANNED 09/29/2023 12:2 1 EDT TYPE AND SCREEN Routine 09/25/2023 8:52 EDT COMPLETE BLOOD COUNT STAT 09/23/2023 14:37 EDT POC US ANESTHESIA NERVE BLOCK TAP Routine 09/22/2023 8:01 EDT SURGICAL PATHOLOGY Routine 09/22/2023 7: 47 EDT SECTION 09/22/2023 7:03 EDT Breech GROUP B STREP PCR Routine 09/21/2023 15: 51 EDT HOLD SST Routine 09/21/2023 12:16 EDT HOLD BLUE TOP Routine 09/21/2023 12:16 EDT BLOOD BANK HOLD Routine 09/21/2023 12:16 EDT NONSTRESS TEST Routine 09/20/2023 23:12 EDT FIBRINOGEN Routine 09/19/2023 17:01 EDT COMPLETE BLOOD COUNT Routine 09/19/2023 17:01 EDT URIC ACID Routine 09/19/2023 17:01 EDT ALT Routine 09/19/2023 17:01 EDT AST Routine 09/19/2023 17:01 EDT LDH Routine 09/19/2023 17:01 EDT CREATININE Routine 09/19/2023 17:01 EDT TYPE AND SCREEN Routine 09/19/2023 8:36 EDT TYPE AND SCREEN Routine 09/16/2023 10:43 EDT TYPE AND SCREEN Routine 09/13/2023 12:17 EDT FIBRINOGEN STAT 09/12/2023 15:18 EDT COMPLETE BLOOD COUNT STAT 09/12/2023 15:18 EDT URIC ACID STAT 09/12/2023 15:18 EDT ALT STAT 09/12/2023 15:18 EDT AST STAT 09/12/2023 15:18 EDT LDH STAT 09/12/2023 15:18 EDT CREATININE STAT 09/12/2023 15:18 EDT POCT GLUCOSE, INTERFACED Routine 09/11/2023 15:03 EDT HOLTER MONITOR - 24 Routine 09/11/2023 1 4:58 EDT ECG REPORT - SCANNED 09/11/2023 13:45 EDT POCT GLUCOSE, INTERFACED Routine 09/10/2023 12:15 EDT EKG 12-LEAD Routine 09/10/2023 10:48 EDT COMPLETE BLOOD COUNT Routine 09/10/2023 7:29 EDT ALT Routine 09/10/2023 7:29 EDT AST Routine 09/10/2023 7:29 EDT TSH Add-On 09/10/2023 7:29 EDT NT PRO BNP Add-On 09/10/2023 7:29 EDT MAGNESIUM Add-On 09/10/2023 7:29 EDT LDH Routine 09/10/2023 7:29 EDT CREATININE Routine 09/10/2023 7:29 EDT CALCIUM Add-On 09/10/2023 7:29 EDT ELECTROLYTES Add-On 09/10/2023 7:29 EDT TYPE AND SCREEN Routine 09/10/2023 7:28 EDT COMPLETE BLOOD COUNT Routine 09/07/2023 9:12 EDT TYPE AND SCREEN Routine 09/07/2023 9:12 EDT ALT Routine 09/07/2023 9:12 EDT AST Routine 09/07/2023 9:12 EDT LDH Routine 09/07/2023 9:12 EDT CREATININE Routine 09/07/2023 9:12 EDT PROTEIN, TOTAL, 24 HR, URINE Routine 09/05/2023 21:05 EDT POC LD US ROUTINE 2ND TRIMESTER OB Routine 09/05/2023 11:23 EDT GROUP B STREP PCR Routine 09/04/2023 18: 15 EDT URIC ACID Routine 09/04/2023 18:06 EDT ALT Routine 09/04/2023 18:06 EDT AST Routine 09/04/2023 18:06 EDT LDH Routine 09/04/2023 18:06 EDT PRE-ECLAMPSIA PROTEIN/CREATININE RATIO, URINE Routine 09/04/2023 16:55 EDT PATIENT RE-TYPE Routine 09/04/2023 16:55 EDT FIBRINOGEN Routine 09/04/2023 16:48 EDT CREATININE Routine 09/04/2023 16:48 EDT COMPLETE BLOOD COUNT Routine 09/04/2023 16:47 EDT TYPE AND SCREEN Routine 09/04/2023 16:47 EDT documented in this encounter Results * ECG REPORT - SCANNED (09/29/2023 13:25 EDT) 09/29/2023 13:2 5 EDT Scan 2 Laborer Cement Gun Placing PROCEDURE/MINOR ANTONIO GICAL ORDERABLES * ORDERS - SCANNED (09/29/2023 12:21 EDT) 09/29/2023 12:2 1 EDT Scan 2 Laborer Cement Gun Placing ADMISSION ORDERABLE S * ECG REPORT - SCANNED (09/29/2023 12:21 EDT) 09/29/2023 12:2 1 EDT Scan 2 Laborer Cement Gun Placing PROCEDURE/MINOR ANTONIO GICAL ORDERABLES * TYPE AND SCREEN (09/25/2023 8:52 EDT) ABO A 09/25/2023 10:02 EDT [facility] Rh Factor Positive 09/25/2023 10:02 EDT [facility] Antibody Screen Negative 09/25/2023 10:02 EDT [facility] Specimen Expires: 09/28/2023 @ 23:59 09/25/2023 10:02 EDT [facility] Blood VENOUS BLOOD / Unknown Venipuncture / Unknown 09/25/2023 8:52 EDT 09/25/2023 8:59 EDT Jacki Thomson MD BLOOD BANK TESTS Performing Organization Address City/State/[facility] Co de Phone Number [facility] [address] [place] [address] * (ABNORMAL) COMPLETE BLOOD COUNT (09/23/2023 14:37 EDT) WBC 7.46 4.00 - 12.40 K/cmm 09/23/2023 14:54 EDT [facility] RBC 2.97(L) 3.86 - 5.04 M/cmm 09/23/2023 14:54 [facility] Hemoglobin 8.7(L) 11.6 - 15.2 g/dL 09/23/2023 14:54 [facility] HCT 25.7(L) 34.9 - 44.4 % 09/23/2023 14:54 [facility] MCV 87 81 - 98 fL 09/23/2023 14:54 [facility] MCH 29.3 26.7 - 33.3 pg 09/23/2023 14:54 [facility] MCHC 33.9 32.1 - 35.9 g/dL 09/23/2023 14:54 [facility] RDW-CV 13.2 <14.7 % 09/23/2023 14:54 [facility] RDW-SD 41.3 <50.4 fl 09/23/2023 14:54 [facility] PLT 195 141 - 377 K/cmm 09/23/2023 14:54 [facility] MPV 9.5 9.5 - 12.7 fL 09/23/2023 14:54 [facility] Blood VENOUS BLOOD / Unknown Venipuncture / Unknown 09/23/2023 14:37 EDT 09/23/2023 14:42 EDT Chasity Lee MD HEMATOLOGY & PF4 ORD ERABLES [facility] [address] [place] [address] * POC US ANESTHESIA NERVE BLOCK TAP (09/22/2023 8:01 EDT) Narrative 09/22/2023 8:01 EDT This is a non-reportable exam. Tomy Bustos IMG US POC ORDERABLE S * SURGICAL PATHOLOGY (09/22/2023 7:47 EDT) Note to Patient The following pathology results have been interpreted by your pathologist and may be available to you before your health provider has had the opportunity to review them. Please allow time for your provider to receive these results and explore management options, if applicable. 09/25/2023 9:19 EDT [facility] Final Diagnosis A. PLACENTA, VAGINAL DELIVERY: [place] placenta, 305 grams (<10th percentile for 34 and 1/7 weeks' gestation): - Focal retromembranous hemorrhage. - Maternal vascular malperfusion: - Small for gestational age placenta (by weight if complete). - Accelerated villous maturation. - Increased perivillous fibrin deposition. - Mild to moderate patchy villous edema. - Hypocoiled three vessel umbilical cord. 09/25/2023 9:19 [facility] Attestation There was significant resident/fellow involvement in the diagnostic evaluation of this case. By the signature below, the attending physician certifies that they have personally conducted a gross and/or microscopic examination of the described specimens and rendered or confirmed the above diagnosis. 09/25/2023 9:19 [facility] at 0919 Clinical History PEC with SF, 34 week cs. 09/25/2023 9:19 [facility] Gross Description A. Received fresh [...] there are no coils per 10 cm. Spring Setter sections are submitted as follows: BLOCK CHANG A1- membrane roll and cross-section of end of cord A2- membrane roll and cross-section of cord 5 cm from insertion site A3- full thickness section of placental disc adjacent to umbilical cord insertion site A4-A6- 3 full thickness sections of central 2/3 of placental disc ABEL ORO(ASCP) 09/23/2023 9:12 09/25/2023 9:19 EDT [facility] Resident/Masood w: Nikki Sotelo MD PhD 09/25/2023 9:19 EDT [facility] Performing Lab [facility] 9:19 EDT [facility] Scanned Images 09/25/2023 9:19 EDT [facility] Tissue PLACENTAL STRUCTURE / Unknown 09/22/2023 7:47 EDT 09/22/2023 9:01 EDT Comment:Pre-op diagnosis: Breech Jacki Thomson MD PATHOLOGY ORDERABL ES [facility] [address] [place] [address] * GROUP B STREP PCR (09/21/2023 15:51 EDT) Group B Strep PCR Negative Negative 09/22/2023 14:16 EDT [facility] Swab POOLED SPECIMEN FROM VAGINAL INTROITUS AND RECTAL SWAB / Unknown Swab / Unknown 09/21/2023 15:51 EDT 09/21/2023 16:37 EDT Chasity Lee MD MICROBIOLOGY - GENER AL ORDERABLES Performing Organization Address City/[facility]/ZIP Co de Phone Number [facility] [address], [place] [phone] * BLOOD BANK HOLD (09/21/2023 12:16 EDT) Hold BB Spec will exp at 23:59, 3 days from collect date 09/21/2023 12:47 EDT [facility] Blood VENOUS BLOOD / Unknown Venipuncture / Unknown 09/21/2023 12:16 EDT 09/21/2023 12:27 EDT Chasity Lee MD BLOOD BANK TESTS Performing Organization Address [facility]/ZIP Co de Phone Number [facility] [address] [place] [phone] * HOLD SST (09/21/2023 12:16 EDT) Hold Hold 09/21/2023 13:31 EDT [facility] Blood VENOUS BLOOD / Unknown Venipuncture / Unknown 09/21/2023 12:16 EDT 09/21/2023 12:23 EDT Chasity Lee MD LAB INFO SERVICE AND SUPPORT & PHONE RESULT [facility] [address], [place] [phone] * HOLD BLUE TOP (09/21/2023 12:16 EDT) Hold Hold 09/21/2023 13:31 EDT [facility] LABORATORY SERVICES Blood VENOUS BLOOD / Unknown Venipuncture / Unknown 09/21/2023 12:16 EDT 09/21/2023 12:25 EDT Chasity Lee MD LAB INFO SERVICE AND SUPPORT & PHONE RESULT Performing Organization Address [facility] Co de Phone Number [facility] LABORATORY SERVICES [address], [place] [phone] * NONSTRESS TEST (09/20/2023 23:12 EDT) Narrative [facility] POINT OF CARE - 09/20/2023 23:12 EDT Manuel Shi RN ? 09/20/2023 23:14 NST Report Baseline Heart Rate: ??130 Accelerations: ??present Movement: ??present ? Decelerations: ??absent Contractions: ??rare ?? Interpretation: ??reactive Placed on monitors from [id number] Co-sign Provider (Physician Name): MANUEL SHI RN Sharon Bird OB GYNE ORDERABLES Performing Organization Address [facility] Co de Phone Number [facility] POINT OF CARE * URIC ACID (09/19/2023 17:01 EDT) Uric Acid 3.1 2.2 - 7.7 mg/dL 09/19/2023 17:27 EDT [facility] LABORATORY SERVICES Blood VENOUS BLOOD / Unknown Venipuncture / Unknown 09/19/2023 17:01 EDT 09/19/2023 17:11 EDT Sharon Bird CHEMISTRY & BLOOD GA S ORDERABLES Performing Organization Address [facility]/ZIP Co de Phone Number [facility] LABORATORY SERVICES [address], [place] [phone] * (ABNORMAL) COMPLETE BLOOD COUNT (09/19/2023 17:01 EDT) WBC 10.29 4.00 - 12.40 K/cmm 09/19/2023 17:21 EDT [facility] LABORATORY SERVICES RBC 3.99 3.86 - 5.04 M/cmm 09/19/2023 17:21 EDT [facility] LABORATORY SERVICES Hemoglobin 11.8 11.6 - 15.2 g/dL 09/19/2023 17:21 EDT [facility] LABORATORY SERVICES HCT 34.1(L) 34.9 - 44.4 % 09/19/2023 17:21 EDT [facility] LABORATORY SERVICES MCV 86 81 - 98 fL 09/19/2023 17:21 EDT [facility] LABORATORY SERVICES MCH 29.6 26.7 - 33.3 pg 09/19/2023 17:21 T [facility] LABORATORY SERVICES MCHC 34.6 32.1 - 35.9 g/dL 09/19/2023 17:21 T [facility] LABORATORY SERVICES RDW-CV 12.3 <14.7 % 09/19/2023 17:21 T [facility] LABORATORY SERVICES RDW-SD 38.2 <50.4 fl 09/19/2023 17:21 T [facility] LABORATORY SERVICES PLT 272 141 - 377 K/cmm 09/19/2023 17:21 T [facility] LABORATORY SERVICES MPV 9.3(L) 9.5 - 12.7 fL 09/19/2023 17:21 T [facility] LABORATORY SERVICES Blood VENOUS BLOOD / Unknown Venipuncture / Unknown 09/19/2023 17:01 EDT 09/19/2023 17:11 EDT Sharon Bird HEMATOLOGY & PF4 ORD ERABLES [facility] LABORATORY SERVICES [address] [place] [address] * (ABNORMAL) CREATININE (09/19/2023 17:01 EDT) Creatinine 0.37(L) 0.52 - 1.04 mg/dL 09/19/2023 17:27 EDT [facility] LABORATORY SERVICES eGFR 139 >60 mL/min/1.73 m2 09/19/2023 17:27 T [facility] LABORATORY SERVICES Blood VENOUS BLOOD / Unknown Venipuncture / Unknown 09/19/2023 17:01 EDT 09/19/2023 17:11 EDT Sharon Bird CHEMISTRY & BLOOD GA S ORDERABLES Performing Organization Address City/[facility]/ZIP Co de Phone Number [facility] LABORATORY SERVICES [address], [place] [phone] * LDH (09/19/2023 17:01 EDT) LDH 151 120 - 246 U/L 09/19/2023 17:27 EDT [facility] LABORATORY SERVICES Blood VENOUS BLOOD / Unknown Venipuncture / Unknown 09/19/2023 17:01 EDT 09/19/2023 17:11 EDT Sharon Bird CHEMISTRY & BLOOD GA S ORDERABLES Performing Organization Address City/[facility] Co de Phone Number [facility] LABORATORY SERVICES [address] [place] [address] * (ABNORMAL) FIBRINOGEN (09/19/2023 17:01 EDT) Fibrinogen 532(H) 171 - 384 mg/dL 09/19/2023 17:44 EDT [facility] LABORATORY SERVICES Blood VENOUS BLOOD / Unknown Venipuncture / Unknown 09/19/2023 17:01 EDT 09/19/2023 17:22 EDT Sharon Bird HEMATOLOGY & PF4 ORD ERABLES Performing Organization Address City/[facility]/ZIP Co de Phone Number [facility] LABORATORY SERVICES [address], [place] [phone] * ALT (09/19/2023 17:01 EDT) ALT 20 <35 U/L 09/19/2023 17:27 EDT [facility] LABORATORY SERVICES Blood VENOUS BLOOD / Unknown Venipuncture / Unknown 09/19/2023 17:01 EDT 09/19/2023 17:11 EDT Sharon Bird CHEMISTRY & BLOOD GA S ORDERABLES [facility] LABORATORY SERVICES [address] [place] [address] * AST (09/19/2023 17:01 EDT) AST 18 15 - 46 U/L 09/19/2023 17:27 EDT [facility] LABORATORY SERVICES Blood VENOUS BLOOD / Unknown Venipuncture / Unknown 09/19/2023 17:01 EDT 09/19/2023 17:11 EDT Sharon Bird CHEMISTRY & BLOOD GA S ORDERABLES Performing Organization Address City/[facility]/ZIP Co de Phone Number [facility] LABORATORY SERVICES [address] [place] [address] * TYPE AND SCREEN (09/19/2023 8:36 EDT) ABO A 09/19/2023 10:01 EDT [facility] BLOOD BANK Rh Factor Positive 09/19/2023 10:01 EDT [facility]LOOD [facility] Antibody Screen Negative 09/19/2023 10:01 EDT [facility] BLOOD B[facility] Specimen Expires: 09/22/2023 @ 23:59 09/19/2023 10:01 EDT [facility] BLOOD BANK Blood VENOUS BLOOD / Unknown Venipuncture / Unknown 09/19/2023 8:36 EDT 09/19/2023 8:49 EDT Jacki Thomson MD BLOOD BANK TESTS [facility] BLOOD BANK [address] [place] [address] * TYPE AND SCREEN (09/16/2023 10:43 EDT) ABO A 09/16/2023 11:55 EDT [facility] BLOOD B[facility] Rh Factor Positive 09/16/2023 11:55 EDT [facility] BLOOD [facility] Antibody Screen Negative 09/16/2023 11:55 EDT [facility] BLOOD BANK Specimen Expires: 09/19/2023 @ 23:59 09/16/2023 11:55 EDT [facility] BLOOD BANK Blood VENOUS BLOOD / Unknown Venipuncture / Unknown 09/16/2023 10:43 EDT 09/16/2023 10:59 EDT Jacki Thomson MD BLOOD BANK TESTS Performing Organization Address City/[facility] de Phone Number [facility] BLOOD BANK [address] [place], [place] [phone] * TYPE AND SCREEN (09/13/2023 12:17 EDT) ABO A 09/13/2023 14:33 EDT [facility] BLOOD B[facility] Rh Factor Positive 09/13/2023 14:33 EDT [facility] BLO[facility] Antibody Screen Negative 09/13/2023 14:33 EDT [facility] BLOOD BANK Specimen Expires: 09/16/2023 @ 23:59 09/13/2023 14:33 EDT [facility] BLOOD BANK Blood VENOUS BLOOD / Unknown Venipuncture / Unknown 09/13/2023 12:17 EDT 09/13/2023 13:07 EDT Jacki Thomson MD BLOOD BANK TESTS Performing Organization Address [facility] de Phone Number [facility] BLOOD B[facility] [address] [place], [place] [address] * (ABNORMAL) FIBRINOGEN (09/12/2023 15:18 EDT) Fibrinogen 544(H) 171 - 384 mg/dL 09/12/2023 15:49 EDT [facility] LABORATORY SERVICES Blood VENOUS BLOOD / Unknown Venipuncture / Unknown 09/12/2023 15:18 EDT 09/12/2023 15:27 EDT Chasity Lee MD HEMATOLOGY & PF4 ORD ERABLES [facility] LABORATORY SERVICES [address] [place], [place] [phone] * LDH (09/12/2023 15:18 EDT) LDH 146 120 - 246 U/L 09/12/2023 15:41 EDT [facility] LABORATORY SERVICES Blood VENOUS BLOOD / Unknown Venipuncture / Unknown 09/12/2023 15:18 EDT 09/12/2023 15:26 EDT Chasity Lee MD CHEMISTRY & BLOOD GA S ORDERABLES Performing Organization Address City/[facility]/ZIP Co de Phone Number [facility] LABORATORY SERVICES [address] [place] [address] * URIC ACID (09/12/2023 15:18 EDT) Uric Acid 3.4 2.2 - 7.7 mg/dL 09/12/2023 15:41 EDT [facility] LABORATORY SERVICES Blood VENOUS BLOOD / Unknown Venipuncture / Unknown 09/12/2023 15:18 EDT 09/12/2023 15:26 EDT Chasity Lee MD CHEMISTRY & BLOOD GA S ORDERABLES Performing Organization Address City/[facility]/ZIP Co de Phone Number [facility] LABORATORY SERVICES [address], [place] [phone] * (ABNORMAL) CREATININE (09/12/2023 15:18 EDT) Creatinine 0.48(L) 0.52 - 1.04 mg/dL 09/12/2023 15:41 EDT [facility] LABORATORY SERVICES eGFR 131 >60 mL/min/1.73 m2 09/12/2023 15:41 EDT [facility] LABORATORY SERVICES Blood VENOUS BLOOD / Unknown Venipuncture / Unknown 09/12/2023 15:18 EDT 09/12/2023 15:26 EDT Chasity Lee MD CHEMISTRY & BLOOD GA S ORDERABLES [facility] LABORATORY SERVICES [address] [place] [address] * (ABNORMAL) COMPLETE BLOOD COUNT (09/12/2023 15:18 EDT) WBC 9.42 4.00 - 12.40 K/cmm 09/12/2023 15:35 EDT [facility] LABORATORY SERVICES RBC 4.32 3.86 - 5.04 M/cmm 09/12/2023 15:35 EDT [facility] LABORATORY SERVICES Hemoglobin 12.4 11.6 - 15.2 g/dL 09/12/2023 15:35 T [facility] LABORATORY SERVICES HCT 37.1 34.9 - 44.4 % 09/12/2023 15:35 [facility] LABORATORY SERVICES MCV 86 81 - 98 fL 09/12/2023 15:35 T [facility] LABORATORY SERVICES MCH 28.7 26.7 - 33.3 pg 09/12/2023 15:35 [facility] LABORATORY SERVICES MCHC 33.4 32.1 - 35.9 g/dL 09/12/2023 15:35 [facility] LABORATORY SERVICES RDW-CV 12.1 <14.7 % 09/12/2023 15:35 [facility] LABORATORY SERVICES RDW-SD 38.0 <50.4 fl 09/12/2023 15:35 [facility] LABORATORY SERVICES PLT 323 141 - 377 K/cmm 09/12/2023 15:35 [facility] LABORATORY SERVICES MPV 9.4(L) 9.5 - 12.7 fL 09/12/2023 15:35 [facility] LABORATORY SERVICES Blood VENOUS BLOOD / Unknown Venipuncture / Unknown 09/12/2023 15:18 EDT 09/12/2023 15:26 EDT Chasity Lee MD HEMATOLOGY & PF4 ORD ERABLES [facility] LABORATORY SERVICES [address] [place] [address] * ALT (09/12/2023 15:18 EDT) ALT 18 <35 U/L 09/12/2023 15:41 EDT [facility] LABORATORY SERVICES Blood VENOUS BLOOD / Unknown Venipuncture / Unknown 09/12/2023 15:18 EDT 09/12/2023 15:26 EDT Chasity Lee MD CHEMISTRY & BLOOD GA S ORDERABLES [facility] LABORATORY SERVICES [address] [place] [address] * AST (09/12/2023 15:18 EDT) Pathologist [facility] [place] AST 16 15 - 46 U/L 09/12/2023 15:41 EDT [facility] LABORATORY SERVICES Blood VENOUS BLOOD / Unknown Venipuncture / Unknown 09/12/2023 15:18 EDT 09/12/2023 15:26 EDT Chasity Lee MD CHEMISTRY & BLOOD GA S ORDERABLES Performing Organization Address [facility]/ZIP Co de Phone Number [facility] LABORATORY SERVICES [address] [place] [address] * (ABNORMAL) POCT GLUCOSE, INTERFACED (09/11/2023 15:03 EDT) Pathologist [facility] [place] Glucose, POC 101(H) 70 - 100 mg/dL 09/11/2023 15:47 EDT [facility] LABORATORY SERVICES HN LAB POC COMMENT (GLUCOSE) Test Performed by Nursing Services 09/11/2023 15:47 EDT [facility] LABORATORY SERVICES Blood CAPILLARY BLOOD / Unknown 09/11/2023 15:03 EDT 09/11/2023 15:47 EDT Odilia Franks MD POINT OF CARE TEST O RDERABLES Performing Organization Address City/[facility]/ZIP Co de Phone Number [facility] LABORATORY SERVICES [address] [place] [address] * HOLTER MONITOR-24: PLACED IN CLINIC (09/11/2023 [...] heart rate was 133 bpm on Day 02:06:42 pm SVE(s): [place] was < 0.01 %, 2 total SVE(s) Patient recorded 7 event(s) during the monitoring period - sinus rhythm was present. Sharon Bird CARDIAC SERVICES ORD ERABLES * ECG REPORT - SCANNED (09/11/2023 13:45 EDT) 09/11/2023 13:4 5 EDT Scan 2 Laborer [employer] PROCEDURE/MINOR ANTONIO GICAL ORDERABLES * (ABNORMAL) POCT GLUCOSE, INTERFACED (09/10/2023 12:15 EDT) Glucose, POC 128(H) 70 - 100 mg/dL 09/11/2023 8:13 EDT [facility] LABORATORY SERVICES HN LAB POC COMMENT (GLUCOSE) Test Performed by Nursing Services 09/11/2023 8:13 EDT [facility] LABORATORY SERVICES Blood CAPILLARY BLOOD / Unknown 09/10/2023 12:15 EDT 09/11/2023 8:13 EDT Odilia Franks MD POINT OF CARE TEST O RDERABLES [facility] LABORATORY SERVICES [address] [place] [address] * EKG 12-LEAD (09/10/2023 10:48 EDT) 09/10/2023 10:4 8 EDT Narrative [facility] EKG - 09/11/2023 13:32 EDT ? The ? Test Date: ?2023-09-10 Pat Name: ? HASMUKH YOUNG ? Department: ?? B7 Maternity ? Room: ? [id number] Gender: ? Female ? 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 Requested By: MARGE KUMAR Order Number: [id number] ? Reading MD: ?? TANK HINKLE MD ? Measurements Intervals ?[place] ? Rate: ? 101 ?P: ?27 AK: ? 142 ?QRS: ?27 QRSD: ? 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 Electronically Signed On 09-11-2023 13:32:37 EDT by TANK ROB. Sharon Bird CARDIAC ECG ORDERABL ES [facility] EKG * NT PRO BNP (09/10/2023 7:29 EDT) NT-pro BNP <20 <95 pg/mL 09/11/2023 18:51 EDT [facility] LABORATORY SERVICES Comment: In the acute setting NT-proBNP values <300 pg/mL have a 98% NPV for excluding acute heart failure. In outpatient populations, NT-proBNP values <125 have a 99% NPV for excluding heart failure. Blood VENOUS BLOOD / Unknown Venipuncture / Unknown 09/10/2023 7:29 EDT 09/10/2023 7:39 EDT Sharon Bird CHEMISTRY & BLOOD GA S ORDERABLES Performing Organization Address [facility] de Phone Number [facility] LABORATORY SERVICES [address] [place] [phone] * TSH (09/10/2023 7:29 EDT) Pathologist [facility] [place] TSH 3.60 0.47 - 4.68 mIU/L 09/10/2023 14:46 EDT [facility] LABORATORY SERVICES Blood VENOUS BLOOD / Unknown Venipuncture / Unknown 09/10/2023 7:29 EDT 09/10/2023 7:39 EDT Narrative [facility] LABORATORY SERVICES - 09/10/2023 14:46 EDT The results of this assay can be falsely lowered due to the consumption of Biotin. Sharon Snidersen CHEMISTRY & BLOOD GA S ORDERABLES Performing Organization Address [facility] Co de Phone Number [facility] LABORATORY SERVICES [address] [place] [phone] * CALCIUM (09/10/2023 7:29 EDT) Pathologist [facility] [place] Calcium 9.0 8.5 - 10.5 mg/dL 09/10/2023 8:10 EDT [facility] LABORATORY SERVICES Blood VENOUS BLOOD / Unknown Venipuncture / Unknown 09/10/2023 7:29 EDT 09/10/2023 7:39 EDT Sharon Bird CHEMISTRY & BLOOD GA S ORDERABLES Performing Organization Address [facility]/ZIP Co de Phone Number [facility] LABORATORY SERVICES [address], [place] [phone] * (ABNORMAL) MAGNESIUM (09/10/2023 7:29 EDT) Magnesium 1.6(L) 1.7 - 2.8 mg/dL 09/10/2023 8:10 EDT [facility] LABORATORY SERVICES Blood VENOUS BLOOD / Unknown Venipuncture / Unknown 09/10/2023 7:29 EDT 09/10/2023 7:39 EDT Sharon Bird CHEMISTRY & BLOOD GA S ORDERABLES Performing Organization Address [facility] Co de Phone Number [facility] LABORATORY SERVICES [address] [place], [place] [phone] * (ABNORMAL) ELECTROLYTES (09/10/2023 7:29 EDT) Sodium 133(L) 136 - 145 mmol/L 09/10/2023 8:10 EDT [facility] Potassium 4.3 3.5 - 5.0 mmol/L 09/10/2023 8:10 EDT [facility] SERVICES Chloride 105 96 - 110 mmol/L 09/10/2023 8:10 EDT [facility] CO2 Total 19(L) 22 - 32 mmol/L 09/10/2023 8:10 EDT [facility] SERVICES Anion Gap 9 5 - 14 mmol/L 09/10/2023 8:10 EDT [facility] LAB[facility] SERVICES Blood VENOUS BLOOD / Unknown Venipuncture / Unknown 09/10/2023 7:29 EDT 09/10/2023 7:39 EDT Sharon Bird CHEMISTRY & BLOOD GA S ORDERABLES Performing Organization Address [facility]/ZIP Co de Phone Number [facility] LABORATORY SERVICES [address] [place], [place] [phone] * AST (09/10/2023 7:29 EDT) AST 16 15 - 46 U/L 09/10/2023 7:58 EDT [facility] LABORATORY SERVICES Blood VENOUS BLOOD / Unknown Venipuncture / Unknown 09/10/2023 7:29 EDT 09/10/2023 7:39 EDT Josey Andres MD CHEMISTRY & BLOOD GAS ORDERABLES [facility] SERVICES [address] [place] [address] * ALT (09/10/2023 7:29 EDT) ALT 16 <35 U/L 09/10/2023 7:58 EDT [facility] LABOR[facility] SERVICES Blood VENOUS BLOOD / Unknown Venipuncture / Unknown 09/10/2023 7:29 EDT 09/10/2023 7:39 EDT Josey Andres MD CHEMISTRY & BLOOD GAS ORDERABLES Performing Organization Address City/[facility] Co de Phone Number [facility] LABORATORY SERVICES [address] [place] [phone] * (ABNORMAL) CREATININE (09/10/2023 7:29 EDT) Creatinine 0.39(L) 0.52 - 1.04 mg/dL 09/10/2023 7:58 EDT [facility] LABORATORY SERVICES eGFR 137 >60 mL/min/1.73 m2 09/10/2023 7:58 EDT [facility] SERVICES Blood VENOUS BLOOD / Unknown Venipuncture / Unknown 09/10/2023 7:29 EDT 09/10/2023 7:39 EDT Josey Andres MD CHEMISTRY & BLOOD GAS ORDERABLES Performing Organization Address City/[facility]/ZIP Co de Phone Number [facility]OR[facility] [address] [place] [address] * (ABNORMAL) COMPLETE BLOOD COUNT (09/10/2023 7:29 EDT) Pathologist [facility] [place] WBC 9.58 4.00 - 12.40 K/cmm 09/10/2023 7:48 EDT [facility] RBC 4.21 3.86 - 5.04 M/cmm 09/10/2023 7:48 EDT [facility] Hemoglobin 12.3 11.6 - 15.2 g/dL 09/10/2023 7:48 EDT [facility] HCT 35.5 34.9 - 44.4 % 09/10/2023 7:48 T [facility] SERVICES MCV 84 81 - 98 fL 09/10/2023 7:48 T [facility] MCH 29.2 26.7 - 33.3 pg 09/10/2023 7:48 T [facility] MCHC 34.6 32.1 - 35.9 g/dL 09/10/2023 7:48 T [facility] RDW-CV 12.7 <14.7 % 09/10/2023 7:48 T [facility] RDW-SD 38.5 <50.4 fl 09/10/2023 7:48 T [facility] LABORATORY SERVICES PLT 342 141 - 377 K/cmm 09/10/2023 7:48 [facility] LABORATORY SERVICES MPV 9.4(L) 9.5 - 12.7 fL 09/10/2023 7:48 [facility] LABORATORY SERVICES Blood VENOUS BLOOD / Unknown Venipuncture / Unknown 09/10/2023 7:29 EDT 09/10/2023 7:39 EDT Josey Andres MD HEMATOLOGY & PF4 O RDERABLES [facility] SERVICES [address] [place], [place] [phone] * LDH (09/10/2023 7:29 EDT) [facility] LDH 148 120 - 246 U/L 09/10/2023 7:58 EDT [facility] SERVICES Blood VENOUS BLOOD / Unknown Venipuncture / Unknown 09/10/2023 7:29 EDT 09/10/2023 7:39 EDT Josey Andres MD CHEMISTRY & BLOOD GAS ORDERABLES Performing Organization Address City/[facility]/ZIP Co de Phone Number [facility]OR[facility] [address] [place] [address] * TYPE AND SCREEN (09/10/2023 7:28 EDT) ABO A 09/10/2023 9:16 EDT [facility] BLOOD BANK Rh Factor Positive 09/10/2023 9:16 EDT [facility] BLOOD B[facility] Antibody Screen Negative 09/10/2023 9:16 EDT [facility] BLOOD BANK Specimen Expires: 09/13/2023 @ 23:59 09/10/2023 9:16 EDT [facility] BLOOD BANK Blood VENOUS BLOOD / Unknown Venipuncture / Unknown 09/10/2023 7:28 EDT 09/10/2023 7:44 EDT Jacki Thomson MD BLOOD BANK TESTS Performing Organization Address [facility] Co de Phone Number [facility] BLOOD BANK [address] [place] [phone] * TYPE AND SCREEN (09/07/2023 9:12 EDT) ABO A 09/07/2023 11:19 EDT [facility] BLOOD BANK Rh Factor Positive 09/07/2023 11:19 EDT [facility] BLOOD BANK Antibody Screen Negative 09/07/2023 11:19 EDT [facility] BLOOD BANK Specimen Expires: 09/10/2023 @ 23:59 09/07/2023 11:19 EDT [facility] BLOOD BANK Blood VENOUS BLOOD / Unknown Venipuncture / Unknown 09/07/2023 9:12 EDT 09/07/2023 9:28 EDT Jacki Thomson MD BLOOD BANK TESTS Performing Organization Address [facility]/ZIP Co de Phone Number [facility] BLOOD BANK [address] [place], [place] [phone] * AST (09/07/2023 9:12 EDT) AST 18 15 - 46 U/L 09/07/2023 9:42 EDT [facility] LABORATORY SERVICES Blood VENOUS BLOOD / Unknown Venipuncture / Unknown 09/07/2023 9:12 EDT 09/07/2023 9:27 EDT Josey Andres MD CHEMISTRY & BLOOD GAS ORDERABLES Performing Organization Address [facility] de Phone Number [facility]OR[facility]ORY SERVICES [address] [place] [address] * ALT (09/07/2023 9:12 EDT) ALT 22 <35 U/L 09/07/2023 9:42 EDT [facility]OR[facility] SERVICES Blood VENOUS BLOOD / Unknown Venipuncture / Unknown 09/07/2023 9:12 EDT 09/07/2023 9:27 EDT Josey Andres MD CHEMISTRY & BLOOD GAS ORDERABLES Performing Organization Address [facility] Co de Phone Number [facility] LABORATORY SERVICES [address] [place], [place] [phone] * (ABNORMAL) CREATININE (09/07/2023 9:12 EDT) Creatinine 0.39(L) 0.52 - 1.04 mg/dL 09/07/2023 9:42 EDT [facility] LABORATORY SERVICES eGFR 137 >60 mL/min/1.73 m2 09/07/2023 9:42 EDT [facility] LABOR[facility] SERVICES Blood VENOUS BLOOD / Unknown Venipuncture / Unknown 09/07/2023 9:12 EDT 09/07/2023 9:27 EDT Josey Andres MD CHEMISTRY & BLOOD GAS ORDERABLES [facility] [address] [place] [address] * (ABNORMAL) COMPLETE BLOOD COUNT (09/07/2023 9:12 EDT) WBC 8.16 4.00 - 12.40 K/cmm 09/07/2023 9:41 EDT [facility] LABOR[facility] SERVICES RBC 3.90 3.86 - 5.04 M/cmm 09/07/2023 9:41 T [facility]OR[facility] SERVICES Hemoglobin 11.3(L) 11.6 - 15.2 g/dL [facility]23 [facility] 32.9(L) 34.9 - 44.4 % 09/07/2023 9:41 EDT [facility] LABORATORY SERVICES MCV 84 81 - 98 fL 09/07/2023 9:41 T [facility] MCH 29.0 26.7 - 33.3 pg 09/07/2023 9:41 EDT [facility] MCHC 34.3 32.1 - 35.9 g/dL 09/07/2023 9:41 T [facility] RDW-CV 12.9 <14.7 % 09/07/2023 9:41 T [facility] RDW-SD 39.1 <50.4 fl 09/07/2023 9:41 EDT [facility] PLT 273 141 - 377 K/cmm 09/07/2023 9:41 EDT [facility] MPV 9.7 9.5 - 12.7 fL 09/07/2023 9:41 [facility] Blood VENOUS BLOOD / Unknown Venipuncture / Unknown 09/07/2023 9:12 EDT 09/07/2023 9:27 EDT Josey Andres MD HEMATOLOGY & PF4 O RDERABLES [facility] [address] [place] [address] * [facility] (09/07/2023 9:12 EDT) Pathologist [facility] [place] [facility] 147 120 - 246 U/L 09/07/2023 9:42 EDT [facility] Blood VENOUS BLOOD / Unknown Venipuncture / Unknown 09/07/2023 9:12 EDT 09/07/2023 9:27 EDT Josey Andres MD CHEMISTRY & BLOOD GAS ORDERABLES Performing Organization Address City/[facility]/ZIP Co de Phone Number [facility] [address] [place] [address] * (ABNORMAL) PROTEIN, TOTAL, 24 HR, URINE (09/05/2023 21:05 EDT) Pathologist [facility] [place] Total Protein, Urine 10 See Note mg/dL 09/06/2023 8:00 EDT [facility] Comment: NOTE: Reference range not established Total Protein, Urine 24 hr 500(H) <150 mg/24hrs 09/06/2023 8:00 EDT [facility] Urine Volume 5,000 mL 09/06/2023 8:00 EDT [facility] Urine Collection Period 24.0 Hours 09/06/2023 8:00 EDT [facility] Urine 24 HOUR URINE SPECIMEN / Unknown Urine Collect / Unknown 09/05/2023 21:05 EDT 09/06/2023 7:16 EDT Cely Villar MD URINALYSIS ORDERABLE S Performing Organization Address City/[facility]/ZIP Co de Phone Number [facility] [address] [place] [address] * POC LD US ROUTINE 2ND TRIMESTER [...] (oz) ?? 9 oz EFW by: ?Hadlock ([id number]) Extended Associate Vice President 6.4 mm CM 9.1 mm ?? 91% [...] view: not visualized 3-vessel view: not visualized [id number] view: not visualized Heart / Thorax Aortic [...] Limited by advanced gestational age Impression ========= [id number] Obstetrical ultrasound with and maternal evaluation This [...] EFW (oz) 9 oz EFW by: Hadlock ([id number]) Extended Associate Vice President 6.4 mm CM 9.1 mm 91% Nicolaides [...] view: not visualized 3-vessel view: not visualized [id number] view: not visualized Heart / Thorax Aortic [...] Limited by advanced gestational age Impression ========= [id number] Obstetrical ultrasound with and maternal evaluation This [...] wks DATE OF SERVICE: 09/05/2023 Sharon Bird [facility] ORDERABLES * GROUP B STREP PCR (09/04/2023 18:15 EDT) Pathologist [facility] [place] Group B Strep PCR Negative Negative 09/06/2023 14:00 EDT [facility] Swab POOLED SPECIMEN FROM VAGINAL INTROITUS AND RECTAL SWAB / Unknown Swab / Unknown 09/04/2023 18:15 EDT 09/04/2023 18:46 EDT Sharon Bird MICROBIOLOGY - [facility] ORDERABLES [facility] [address] [place] [address] * URIC ACID (09/04/2023 18:06 EDT) Pathologist [facility] [place] Uric Acid 3.8 2.2 - 7.7 mg/dL 09/04/2023 18:38 EDT [facility] Blood VENOUS BLOOD / Unknown Venipuncture / Unknown 09/04/2023 18:06 EDT 09/04/2023 18:10 EDT Sharon Bird CHEMISTRY & BLOOD GA S ORDERABLES Performing Organization Address City/[facility]/ZIP Co de Phone Number [facility] [address], [place] [address] * LDH (09/04/2023 18:06 EDT) LDH 173 120 - 246 U/L 09/04/2023 18:38 EDT [facility] Blood VENOUS BLOOD / Unknown Venipuncture / Unknown 09/04/2023 18:06 EDT 09/04/2023 18:10 EDT Sharon Bird CHEMISTRY & BLOOD GA S ORDERABLES Performing Organization Address [facility] Co de Phone Number [facility] [address], [place] [id number] * ALT (09/04/2023 18:06 EDT) ALT 22 <35 U/L 09/04/2023 18:38 EDT [facility] Blood VENOUS BLOOD / Unknown Venipuncture / Unknown 09/04/2023 18:06 EDT 09/04/2023 18:10 EDT Sharonlayla Bird CHEMISTRY & BLOOD GA S ORDERABLES Performing Organization Address City/[facility]/ZIP Co de Phone Number [facility] [address], [place] [id number] * AST (09/04/2023 18:06 EDT) AST 21 15 - 46 U/L 09/04/2023 18:38 EDT [facility] Blood VENOUS BLOOD / Unknown Venipuncture / Unknown 09/04/2023 18:06 EDT 09/04/2023 18:10 EDT Sharon Bird CHEMISTRY & BLOOD GA S ORDERABLES Performing Organization Address City/[facility]/ZIP Co de Phone Number [facility] [address] [place] [address] * PATIENT RE-TYPE (09/04/2023 16:55 EDT) ABO A 09/04/2023 17:28 EDT [facility] Rh Factor Positive 09/04/2023 17:28 EDT [facility] Blood VENOUS BLOOD / Unknown Venipuncture / Unknown 09/04/2023 16:55 EDT 09/04/2023 17:15 EDT Sharon Bird BLOOD BANK TESTS Performing Organization Address [facility]/ZIP Co de Phone Number [facility] [address] [place] [address] * (ABNORMAL) PRE-ECLAMPSIA PROTEIN/CREATININE RATIO, URINE (09/04/2023 16:55 EDT) Total Protein, Urine 49 See Note mg/dL 09/04/2023 17:26 EDT [facility] Comment:Reference range not established. Creatinine, Urine 73.7 See Note mg/dL 09/04/2023 17:26 EDT [facility] Comment:Reference range not established. Pre-Eclampsia Protein/Creat inine Ratio, Urine 0.66(H) <0.30 mg/mg Creatinine 09/04/2023 17:26 EDT [facility] Urine URINE / Unknown Urine Collect / Unknown 09/04/2023 16:55 EDT 09/04/2023 17:03 EDT Sharon Bird URINALYSIS ORDERABLE S [facility] [address] [place] [address] * (ABNORMAL) CREATININE (09/04/2023 16:48 EDT) Pathologist [facility] [place] Creatinine 0.39(L) 0.52 - 1.04 mg/dL 09/04/2023 17:17 EDT [facility] eGFR 137 >60 mL/min/1.73 m2 09/04/2023 17:17 EDT [facility] Blood VENOUS BLOOD / Unknown Venipuncture / Unknown 09/04/2023 16:48 EDT 09/04/2023 16:56 EDT Sharon Bird CHEMISTRY & BLOOD GA S ORDERABLES Performing Organization Address City/[facility]/ZIP Co de Phone Number [facility] [address] [place] [address] * (ABNORMAL) FIBRINOGEN (09/04/2023 16:48 EDT) Pathologist [facility] [place] Fibrinogen 544(H) 171 - 384 mg/dL 09/04/2023 17:34 EDT [facility] Blood VENOUS BLOOD / Unknown Venipuncture / Unknown 09/04/2023 16:48 EDT 09/04/2023 17:11 EDT Sharon Bird HEMATOLOGY & PF4 ORD ERABLES [facility] [address] [place] [address] * (ABNORMAL) COMPLETE BLOOD COUNT (09/04/2023 16:47 EDT) Pathologist [facility] [place] WBC 11.89 4.00 - 12.40 K/cmm 09/04/2023 17:22 EDT [facility] RBC 4.69 3.86 - 5.04 M/cmm 09/04/2023 17:22 EDT [facility] Hemoglobin 13.6 11.6 - 15.2 g/dL 09/04/2023 17:22 EDT [facility] HCT 39.9 34.9 - 44.4 % 09/04/2023 17:22 EDT [facility] MCV 85 81 - 98 fL 09/04/2023 17:22 EDT [facility] MCH 29.0 26.7 - 33.3 pg 09/04/2023 17:22 EDT [facility] MCHC 34.1 32.1 - 35.9 g/dL 09/04/2023 17:22 EDT [facility] RDW-CV 12.6 <14.7 % 09/04/2023 17:22 T [facility] RDW-SD 38.0 <50.4 fl 09/04/2023 17:22 EDT [facility] PLT 396(H) 141 - 377 K/cmm 09/04/2023 17:22 T [facility] MPV 10.2 9.5 - 12.7 fL 09/04/2023 17:22 EDT [facility] Blood VENOUS BLOOD / Unknown Venipuncture / Unknown 09/04/2023 16:47 EDT 09/04/2023 16:56 EDT Sharon Bird HEMATOLOGY & PF4 ORD ERABLES [facility] [address] [place] [address] * TYPE AND SCREEN (09/04/2023 16:47 EDT) ABO A 09/04/2023 17:36 EDT [facility] Rh Factor Positive 09/04/2023 17:36 EDT [facility] Antibody Screen Negative 09/04/2023 17:36 EDT [facility] Specimen Expires: 09/07/2023 @ 23:59 09/04/2023 17:36 EDT [facility] Blood VENOUS BLOOD / Unknown Venipuncture / Unknown 09/04/2023 16:47 EDT 09/04/2023 16:57 EDT Sharon Bird BLOOD BANK TESTS [facility] [address] [place] [address] documented in this encounter Visit Diagnoses Not on filedocumented in this encounter Admitting Diagnoses Diagnosis Preeclampsia, severe, third trimester documented in this encounter Administered Medications Inactive Administered Medications - up to 3 most recent administrations Medication Order MAR Action Action Date Dose Rate Site acetaminophen (TYLENOL) tablet 1,000 mg 1,000 mg, oral, EVERY 8 HOURS PRN, Starting on Thu09/05/23 at 1538, Until Thu09/25/23 at 1610, Pain, Routine Given 09/25/2023 5:06 EDT 1,000 mg Given 09/24/2023 21:03 EDT 1,000 mg Given 09/24/2023 12:57 EDT 1,000 mg calcium GLUconate 100 mg/mL (10%) injection 1,000 mg 1,000 mg (1 g), intravenous, PRN, Starting on Thu09/21/23 at 1225, Until Thu09/25/23 at 1610, Other, magnesium toxicity, STAT docusate sodium (COLACE) capsule 200 mg 200 mg, oral, DAILY, First dose on Thu09/23/23 at 0900, Until Discontinued, Routine Given 09/25/2023 8:34 EDT 200 mg Given 09/23/2023 8:40 EDT 200 mg HYDROmorphone (PF) (DILAUDID) 0.5 mg/0.5 mL syringe 1 dose, Starting on Thu09/22/23 at 0933, Until Thu09/25/23 at 1610 ibuprofen (MOTRIN) tablet 800 mg 800 mg, oral, EVERY 8 HOURS PRN, Starting on Thu09/23/23 at 0745, Until Thu09/25/23 at 1610, Pain, Routine Given 09/25/2023 11:00 EDT 800 mg Given 09/25/2023 1:39 EDT 800 mg Given 09/24/2023 17:12 EDT 800 mg ketOROLAC (TORADOL) 30 mg/mL (1 mL) injection 1 dose, Starting on Thu09/22/23 at 1923, Until Thu09/25/23 at 1610 labetalol (NORMODYNE) tablet 200 mg 200 mg, oral, EVERY 12 HOURS, First dose on Thu09/18/23 at 1245, Until Discontinued, Routine Given 09/22/2023 0:00 EDT 20 0 mg Given 09/21/2023 12:14 EDT 200 mg Given 09/20/2023 23:40 EDT 200 mg lactated ringers (LR) infusion at 25 mL/hr, intravenous, CONTINUOUS, Starting on Thu09/21/23 at 1645, Until Thu09/25/23 at 1610, Routine Rate Documented 09/23/2023 6:00 EDT 25 mL/hr Rate Documented 09/23/2023 5:00 EDT 25 mL/hr Rate Documented 09/23/2023 4:00 EDT 25 mL/hr ondansetron (PF) (ZOFRAN) 4 mg/2 mL injection 1 dose, Starting on Thu09/22/23 at 0712, Until Thu09/25/23 at 1610 ondansetron (PF) (ZOFRAN) injection 4 mg 4 mg, intravenous, EVERY 4 HOURS PRN, Starting on Thu09/22/23 at 1607, Until Thu09/25/23 at 1610, Nausea, Routine Given 09/22/2023 16:10 EDT 4 mg oxyCODONE (ROXICODONE) immediate release tablet 2.5-5 mg 2.5-5 mg, oral, EVERY 4 HOURS PRN, Starting on Thu09/24/23 at 2316, Until Thu09/25/23 at 1610, Pain, Routine, Recovery & On Unit Given 09/25/2023 0:39 EDT 2.5 mg polyethylene glycol 3350 (MIRALAX) packet 17 g 17 g, oral, DAILY, First dose on Thu09/23/23 at 0900, Until Discontinued, Routine Given 09/25/2023 8:34 EDT 17 g Given 09/24/2023 17:34 EDT 17 g Given 09/23/2023 8:12 EDT 17 g sodium chloride (OCEAN) 0.65 % nasal spray 1 [place] 1 [place], nasal - both, EVERY 2 HOURS PRN, Starting on Thu09/08/23 at 1432, Until Thu09/25/23 at 1610, Congestion, Routine Given 09/08/2023 15:11 EDT 1 [place] sodium chloride 0.9 % (flush) flush 5 mL 5 mL, intravenous, EVERY 8 HOURS, First dose on Thu09/22/23 at 0900, Until Discontinued, Routine, Release Given 09/23/2023 17:29 EDT 5 mL Given 09/23/2023 8:12 EDT 5 mL sodium phosphate (FLEET SALINE) enema 1 Enema 1 Enema, rectal, DAILY PRN, Starting on Thu09/25/23 at 0654, Until Thu09/25/23 at 1610, Constipation, Routine Given 09/25/2023 12:48 EDT 1 Enema documented in this encounter Discontinued Medications Medication Sig Discontinue Reason Start Date End Da te nortriptyline (PAMELOR) 50 mg capsule Take 50 mg by mouth daily. 09/04/2023 UNABLE TO FIND 25 mg daily. Med Name: Sertralin 09/04/2023 UNABLE TO FIND daily. Med Name: BirthControl- Avaine 09/04/2023 ARIPiprazole (ABILIFY) 15 mg tablet Take 15 mg by mouth daily. 09/04/2023 ONDANSETRON (ZOFRAN ODT ORAL) Take by mouth as needed. 09/04/2023 LORazepam (ATIVAN) 0.5 mg tablet Take 1 mg by mouth as needed for Anxiety. 09/04/2023 propRANolol (INDERAL) 20 mg tablet Take 30 mg by mouth 3 times daily. 09/04/2023 lithium (LITHOBID) 300 mg CR tablet Take 300 mg by mouth 3 times daily. 09/04/2023 hydrOXYzine (ATARAX) 25 mg tablet Take 15 mg by mouth 3 times daily. 09/04/2023 aspirin chewable 81 mg tablet Take 1 Tablet by mouth daily. Takes 81mg and 162mg alternating days 09/25/2023 documented as of this encounter Historical Medications * This list may reflect changes made after this encounter. Medication Sig Dispensed Refills Start Date End Date aspirin chewable 81 mg tablet Take 1 Tablet by mouth daily. Takes 81mg and 162mg alternating days added in this encounter Active and Recently Administered Medications Times are shown in EDT. Scheduled Medication Order 09/23/2023 09/24/2023 09/25/2023 docusate sodium (COLACE) capsule 200 mg 200 mg, oral, DAILY, First dose on Thu09/23/23 at 0900, Until Discontinued, Routine 0840 (Given - Provider: Umm Martin RN) 0954 (Hold - Provider: Ronald Holman RN - Reason: Patient/family refused) 0834 (Given - Provider: Lotus Trammell, LYDIA) ketOROLAC (TORADOL) injection 15 mg (COMPLETED)(Linked Group 1) 15 mg, intravenous, EVERY 6 HOURS, 3 doses, First dose on Thu09/22/23 at 1345, Last dose on Thu09/23/23 at 0145, Routine 0420 (Given - Provider: Rachel Spence RN - Comment: per pt request) labetalol (NORMODYNE) tablet 200 mg 200 mg, oral, EVERY 12 HOURS, First dose on Thu09/18/23 at 1245, Until Discontinued, Routine 0000 (Not Given - Provider: Rachel Spence RN - Reason: Order parameters not met)1321 (Hold - Provider: Umm Martin RN - Reason: Order parameters not met) 0016 (Not Given - Provider: Liliana Avila RN - Reason: Patient/family refused)1247 (Not Given - Provider: Ronald Holman RN - Reason: Order parameters not met) 0042 (Hold - Provider: Opal Goodson RN - Reason: Order parameters not met - Comment: MD notified)1319 (Not Given - Provider: Lotus Trammell RN - Reason: Patient/family refused) polyethylene glycol 3350 (MIRALAX) packet 17 g 17 g, oral, DAILY, First dose on Thu09/23/23 at 0900, Until Discontinued, Routine 0812 (Given - Provider: Umm Martin RN) 0955 (Hold - Provider: Ronald Holman RN - Reason: Patient/family refused)1734 (Given - Provider: Ronald Holman RN) 0834 (Given - Provider: Lotus Trammell, LYDIA) sodium chloride 0.9 % (flush) flush 5 mL(Linked Group 2) 5 mL, intravenous, EVERY 8 HOURS, First dose on Thu09/22/23 at 0900, Until Discontinued, Routine, Release 0000 (Not Given - Provider: Rachel Spence RN - Reason: Order parameters not met)0812 (Given - Provider: Umm Martin RN)1729 (Given - Provider: Nona Pollard RN) 0016 (Completed - Provider: Liliana Avila RN)0955 (Not Given - Provider: Ronald Holman RN - Reason: Loss of IV access)1549 (Not Given - Provider: Ronald Holman RN - Reason: Loss of IV access) 0000 (Not Given - Provider: Opal Goodson RN - Reason: Loss of IV access)0800 (Canceled Entry - Provider: Batch Job User Admin - Comment: Automatically canceled at discontinue of medication order)1600 (Canceled Entry - Provider: Batch Job User Admin - Comment: Automatically canceled at discontinue of medication order) Continuous Medication Order 09/23/2023 09/24/2023 09/25/2023 lactated ringers (LR) infusion at 25 mL/hr, intravenous, CONTINUOUS, Starting on Thu09/21/23 at 1645, Until Thu09/25/23 at 1610, Routine 0000 (Rate Documented - Provider: Rachel Spence RN)0100 (Rate Documented - Provider: Rachel Spence RN)0200 (Rate Documented - Provider: Rachel Spence RN)0300 (Rate Documented - Provider: Rachel Spence RN)0400 (Rate Documented - Provider: Rachel Spence RN)0500 (Rate Documented - Provider: Rachel Spence RN)0600 (Rate Documented - Provider: Rachel Spence RN)0814 (Completed - Provider: Umm Martin RN) magnesium sulfate in water 40 gram/1,000 mL (4 %) IVPB pre-mix () 2 g/hr (50 mL/hr), intravenous, CONTINUOUS, Starting on Thu09/22/23 at 1830, Until Thu09/23/23 at 1059, Routine 0000 (Rate Documented - Provider: Rachel Spence RN)0100 (Rate Documented - Provider: Rachel Spence RN)0200 (Rate Documented - Provider: Rachel Spence RN)0300 (Rate Documented - Provider: Rachel Spence RN)0400 (Rate Documented - Provider: Rachel Spence RN)0500 (Rate Documented - Provider: Rachel Spence, RN)0600 (Rate Documented - Provider: Rachel Spence RN)0726 (Completed - Provider: Umm Martin RN) PRN Medication Order 09/23/2023 09/24/2023 09/25/2023 acetaminophen (TYLENOL) tablet 1,000 mg 1,000 mg, oral, EVERY 8 HOURS PRN, Starting on 09/05/23 at 1538, Until Thu09/25/23 at 1610, Pain, Routine 0800 (Given - Provider: Umm Martin RN)1729 (Given - Provider: Nona Pollard RN) 0119 (Given - Provider: Liliana Avila RN)1257 (Given - Provider: Ronald Holman RN)2103 (Given - Provider: Sharon Santiago RN) 0506 (Given - Provider: Opal Goodson RN) calcium GLUconate 100 mg/mL (10%) injection 1,000 mg 1,000 mg (1 g), intravenous, PRN, Starting on 09/21/23 at 1225, Until Thu09/25/23 at 1610, Other, magnesium toxicity, STAT ibuprofen (MOTRIN) tablet 800 mg(Linked Group 1) 800 mg, oral, EVERY 8 HOURS PRN, Starting on Thu09/23/23 at 0745, Until Thu09/25/23 at 1610, Pain, Routine 0800 (Given - Provider: Umm Martin RN)1729 (Given - Provider: Nona Pollard RN) 0119 (Given - Provider: Liliana Avila RN)0941 (Given - Provider: Ronald Holman RN)1712 (Given - Provider: Ronald Holman RN) 0139 (Given - Provider: Opal Goodson RN)1100 (Given - Provider: Lotus Trammell RN) ondansetron (PF) (ZOFRAN) injection 4 mg 4 mg, intravenous, EVERY 4 HOURS PRN, Starting on 09/22/23 at 1607, Until Thu09/25/23 at 1610, Nausea, Routine oxyCODONE (ROXICODONE) immediate release tablet 2.5-5 mg 2.5-5 mg, oral, EVERY 4 HOURS PRN, Starting on Marilia 09/24/23 at 2316, Until Thu09/25/23 at 1610, Pain, Routine, Recovery & On Unit 0039 (Given - Provider: Opal Goodson RN) oxyCODONE (ROXICODONE) immediate release tablet 5-10 mg (CANCELED) 5-10 mg, oral, EVERY 4 HOURS PRN, Starting on Thu09/22/23 at 0929, Until Thu09/24/23 at 2316, Pain, Routine, Recovery & On Unit 0948 (Given - Provider: Lizet Cisneros, RN)1403 (Given - Provider: Umm Martin, RN)1746 (Given - Provider: Nona Pollard, RN)2237 (Given - Provider: Nona Pollard, RN) 0541 (Given - Provider: Manuel Shi, RN)1057 (Given - Provider: Ronald Holman, RN)1712 (Given - Provider: Ronald Holman, RN) sodium chloride (OCEAN) 0.65 % nasal spray 1 [place] 1 [place], nasal - both, EVERY 2 HOURS PRN, Starting on Thu09/08/23 at 1432, Until Thu09/25/23 at 1610, Congestion, Routine sodium phosphate (FLEET SALINE) enema 1 Enema 1 Enema, rectal, DAILY PRN, Starting on Thu09/25/23 at 0654, Until Thu09/25/23 at 1610, Constipation, Routine 1248 (Given - Provider: Lotus Trammell RN) No Frequency Medication Order 09/23/2023 09/24/2023 09/25/2023 HYDROmorphone (PF) (DILAUDID) 0.5 mg/0.5 mL syringe 1 dose, Starting on Thu09/22/23 at 0933, Until Thu09/25/23 at 1610 ketOROLAC (TORADOL) 30 mg/mL (1 mL) injection 1 dose, Starting on Thu09/22/23 at 1923, Until Thu09/25/23 at 1610 ondansetron (PF) (ZOFRAN) 4 mg/2 mL injection 1 dose, Starting on Thu09/22/23 at 0712, Until Thu09/25/23 at 1610 Linked Groups Order Group 1: ketOROLAC (TORADOL) injection 15 mg (COMPLETED)Jump to med 15 mg, intravenous, EVERY 6 HOURS, 3 doses, First dose on Thu09/22/23 at 1345, Last dose on Thu09/23/23 at 0145, Routine Followed by ibuprofen (MOTRIN) tablet 800 mgJump to med 800 mg, oral, EVERY 8 HOURS PRN, Starting on Thu09/23/23 at 0745, Until Thu09/25/23 at 1610, Pain, Routine Group 2: Change IV to Saline Lock (CANCELED) Routine, ONE TIME, On Thu09/22/23 at 0835, For 1 occurrence, Once PO intake tolerated and oxytocin infusion complete., Release And sodium chloride 0.9 % (flush) flush 5 mLJump to med 5 mL, intravenous, EVERY 8 HOURS, First dose on Thu09/22/23 at 0900, Until Discontinued, Routine, Release documented in this encounter Orders Medications Ordered That Crow ht Not Have Been Administered Count Last Ordered Date First Ordered Date sodium phosphate (FLEET SALI NE) enema 1 Enema 1 09/25/2023 oxyCODONE (ROXICODONE) immed iate release tablet 2.5-5 mg 1 09/24/2023 docusate sodium (COLACE) capsule 200 mg 1 0 09/23/2023 polyethylene glycol 3350 (PA RALAX) packet 17 g 1 09/23/2023 atropine 0.1 mg/mL syringe 0.5 mg 1 024 ceFAZolin (ANCEF) syringe 1 09/22/2023 dextrose 5% (D5W) with azith romycin (ZITHROMAX) 09/22/2023 famotidine (PEPCID) 20 mg/2 mL injection 09/22/2023 HYDROmorphone (PF) (DILAUDID ) 0.5 mg/0.5 mL syringe 0.2-1 mg 1 09/22/2023 ibuprofen (MOTRIN) tablet 800 mg 1 09/22/19 ketOROLAC (TORADOL) 30 mg/mL (1 mL) injection 09/22/2023 ketOROLAC (TORADOL) injection 15 mg 09/21 magnesium sulfate in water 4 0 gram/1,000 mL (4 %) IVPB pre-mix 3 09/22/2023 09/04/2023 naloxone (NARCAN) injection 0.2 mg 1 2023 ondansetron (PF) (ZOFRAN) 4 mg/2 mL injection 09/22/2023 ondansetron (PF) (ZOFRAN) injection 2 mg 1 09/22/2023 ondansetron (PF) (ZOFRAN) injection 4 mg 1 09/22/2023 oxyCODONE (ROXICODONE) immed iate release tablet 5-10 mg 1 09/22/2023 oxytocin in lactated ringers (PITOCIN) 30 unit/500 mL infusion solution 1 09/22/2023 sodium chloride 0.9 % (flush) flush 5 mL 2 09/22/2023 09/04/2023 sodium citrate-citric acid ( BICITRA) 500-334 mg/5 mL solution 1 09/22/2023 terbutaline (BRETHINE) 1 mg/mL injection 1 09/22/2023 calcium GLUconate 100 mg/mL (10%) injection 1,000 mg 1 09/21/2023 lactated ringers (LR) infusion 1 09/21/2023 magnesium sulfate IVPB 4 g 100 mL 1 miSOPROStol (CYTOTEC) tablet 25 mcg 1 09/20 oxytocin in lactated ringers (PITOCIN) infusion 30 units/500 mL 1 09/21/2023 penicillin G potassium 2.5 M illion Units in dextrose (D5W) 100 mL IVPB 1 09/21/2023 penicillin G potassium 5 Mil lion Units in dextrose (D5W) 150 mL IVPB 1 09/21/2023 labetalol (NORMODYNE) tablet 200 mg 4 09/1709/04/2023 magnesium sulfate 2 g in water 50 mL 1 08/28 labetalol (NORMODYNE) tablet 100 mg 2 09/07 sodium chloride (OCEAN) 0.65 % nasal spray 1 [place] 1 09/08/2023 acetaminophen (TYLENOL) tablet 1,000 mg 1 0 09/05/2023 betamethasone (CELESTONE STEPHANIE USPAN) 6 mg/mL injection 12 mg 2 09/04/2023 heparin injection 5,000 Units 1 09/04/2023 Diet Count Last Ordered Date First Orde red Date DISCHARGE DIET 1 09/25/2023 Nursing Count Last Ordered Date First Orde red Date ACTIVITY INSTRUCTIONS 1 09/25/2023 BATHING INSTRUCTIONS 2 09/25/2023 WOUND CARE INSTRUCTIONS 1 09/25/2023 VITAL SIGNS 1 09/04/2023 IV Count Last Ordered Date First Orde red Date IV REQUEST 2 09/21/2023 09/14/2023 Admission Count Last Ordered Date First Orde red Date ADMIT TO INPATIENT 1 09/05/2023 OUTPATIENT WITH OBSERVATION SERVICES (INITIATE OBSERVATION STATUS) 1 09/05/2023 Transfer Count Last Ordered Date First Orde red Date TRANSFER PATIENT 1 09/04/2023 Discharge Count Last Ordered Date First Orde red Date DISCHARGE PATIENT 1 09/25/2023 Legal Count Last Ordered Date First Orde red Date MISCELLANEOUS DISCHARGE INSTRUCTIONS 2 08/29 Equipment Count Last Ordered Date First Orde red Date GENERIC DME ORDER 2 09/25/2023 documented in this encounter Care Teams [employer] Relationship Specialty Start Date End Date Jeniffer Angulo APRN [address] [place] [address] PCP - General 03/27/17 documented as of this encounter
--- OUTSIDE RECORDS SUMMARY | 2023-11-03 15:57 | XMS_ITS | Encounter Summary ---
Author Organization [facility] Address [address] [place] [address] Care Team Providers Care Central Control Room Operator Name Role Phone Jeniffer Angulo APRN Primary Care Provider [phone] Reason for Referral * Referral (Routine/Next Available) - New Request Specialty Diagnoses / Procedures [facility] Referred To Contact Diagnoses Preeclampsia, severe, third trimester Postural dizziness with near syncope delivery delivered Apolinar Choi MD [address] [facility], [address] [place] [address] [place] [address] Referral ID Status Reason Start Date Expiration Date Visits Requested Visits Authorized [id number] New Request Specialty Services Required 09/25/2023 1 1 Question Answer I certify that this patient is under my care and that I, or another Medicare allowed practitioner (DO LISSETTE, DEYSI) working with me, had a [id number] encounter with this patient on this date: 09/25/2023 The discharge summary or progress note will provide further details that support the need for the home health services and the plan of care. Yes Enter the allowed practitioner (DO LISSETTE, DEYSI) who will provide oversight of this patient's home heatlh care needs and plan of care Apolinar Choi Some payers require a patient to be homebound to qualify for home health services. Homebound definition: Absences from home are infrequent or for relatively short duration (such as for medical appointments). Is patient HOMEBOUND? No This referral may be ineligible for admission to home health services as some payers/insurances require a patient to be homebound in order to qualify for home health services. I would like to continue with placing the order: Yes Skilled care requested: Acute therapies (includes PT, INTERNET MARKETING ASSISTANT) Therapies skilled care requested: Physical Therapy Physical therapy is needed for: Post Surgical, Strength Training/Exercise Program Expected Discharge Date (Inpatient Only): 09/25/2023 Comments Patient with prolonged antepartum hospitalization and general moving around less due to dizziness/restriction from ambulating off of floor. Desires PT to help with building back strength and post-surgical comfort. * Consult (Urgent) - Closed Specialty Diagnoses / Procedures Referred By Contac t Referred To Contact Diagnoses Preeclampsia, severe, third trimester delivery delivered Apolinar Choi MD [address] [facility], [address] [place] [address] [facility] Ep4 Ob/Mfm [address] [place] [address] Referral ID Status Reason Start Date Expiration Date V isits Requested Visits Authorized [id number] Closed Specialty Services Required 09/25/2023 1 1 Question Answer Reason for Request: BP check in, likely over the phone plus 6wk PPV * Specialty Diagnoses / Procedures Referred By Contac t Referred To Contact Chasity Lee MD [address] [place] [address] Referral ID Status Reason Start Date Expiration Date Visits Re quested Visits Authorized Comments See MFM for a blood pressure check early next week, or call with home BP readings. * Specialty Diagnoses / Procedures Referred By Contac t Referred To Contact Chasity Lee MD [address] [place] [address] Referral ID Status Reason Start Date Expiration Date Visits Re quested Visits Authorized Comments See your tea tree farmer in 6 weeks. Please call for an appointment. * Specialty Diagnoses / Procedures Referred By Contac t Referred To Contact Chasity Lee MD [address] [place] [address] Referral ID Status Reason Start Date Expiration Date Visits Re quested Visits Authorized * Cardiology (Routine/Next Available) - Authorization Not Required Specialty Diagnoses / Procedures Referred By Contac t Referred To Contact Procedures HOLTER MONITOR - [address] [place] [address] Referral ID Status Reason Start Date Expiration Date Visits Requested Visits Authorized [id number] Authorization Not Required 09/11/2023 1 1 Reason for Visit * Reason Comments Pre-Eclampsia * Auth/Cert (Routine) Specialty Diagnoses / Procedures Referred By Contac t Referred To Contact Diagnoses Preeclampsia, severe, third trimester Preeclampsia with severe features. Referral ID Status Reason Start Date Expiration Date Visits Re quested Visits Authorized [id number] 1 1 Encounter Details Date Type Department Care Team (Late st Contact Info) Description 09/04/2023 15:04 EDT - 09/25/2023 13:48 EDT Hospital Encounter [facility] M[facility] Unit [address] [place], [place] [id number] Apolinar Choi MD [address] [facility], [address] 4 [place] [phone] Riya Shell MD [address] [address] Odilia Franks MD [address] [address] Preeclampsia, severe, third trimester [O14.13] (Primary Dx); Hx of preeclampsia, prior , currently [O09.299]; Postural dizziness with near syncope; Lactating mother; delivery delivered [O82] Discharge Disposition: Home or Self Care Social History Tobacco Use Types Packs/Day Years Used Date Smoking Tobacco: Former Cigarettes Passive Smoke Exposure: Current Tobacco Cessation:Counseling Given: Not Answered Comments:1 PPD x 7 yrs Alcohol Use Standard Drinks/Week Comments Yes 0 (1 standard drink = 0.6 oz pur e alcohol) 1-2 4-5 d/wk [facility] Utilities Answer Date Recorded In the past 12 months has th e [employer], gas, oil, or water [employer] threatened to shut off services in your [...] any time in the past 12 m [facility], were you homeless or living in a halfway (including now)? 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 Maternal Discharge Summary Information for the patient's : James Young [[id number]] Joe Young Maternal Name: Hasmukh Young : 1995 [...] Procedure Component Value Units Date/Time SURGICAL PATHOLOGY [[id number]] Collected: 09/22/23 0747 Lab Status: In process Specimen: Tissue from Placenta, third trimester Updated: 09/22/23 0901 Group B Strep PCR [[id number]] Collected: 09/21/23 1551 Lab Status: In process [...] Means Destination Comment s Home or Self Senior Living documented in this encounter Progress Notes * Sandrine Falcon SEARCH OPTIMIZATION ANALYST - 09/25/2023 3699 EDT Checked in with parents Hasmukh and Hong at bedside on as they were preparing for discharge.Plan to return home to [place], [place] and visit NICU when able. No questions/needs before d/c. ZAC Moreira will follow during NICU admission, they already met with her this week. SW to remain available for psychosocial support, care coordination, and admission/discharge planning. Please reach out as needed. Sandrine Falcon SEARCH OPTIMIZATION ANALYST [phone] (TimeGenius secure chat preferred) * Chasity Lee MD - 09/25/2023 6603 EDT Postoperative Progress Note Chief Complaint: s/p [...] today. Pumping going well, making milk for infant in NICU. Lives in [facility], hoping for d/c today. Interested in [...] 09/25/23 6:59 Obstetrics & Gynecology, PGY-4 Pager #[phone] * Antonio Silvestre MD - 09/24/2023 0659 EDT Postoperative Progress Note Chief Complaint: s/p [...] the note. Antonio Silvestre MD * Lillie Bonds MSW - 09/23/2023 8279 EDT CM/SW Note: I checked in with Hasmukh in her room on M7. I introduced myself and explained my role as NICU CM/SW. Hasmukh let me know that registration called her today- she completed the [place] Medicaid Application for baby and his insurance should be active within the next five days. Hasmukh confirmed that she has WIC and has an appointment scheduled for next Thursday. Hasmukh and SUE will return home when she discharges and will plan to visit several days a week. They live far away ([place], [place]) and have other children at home [...] other needs at this time. SONIA Ortiz [phone] Pager: [phone] * Umm Martin RN - 09/23/2023 6926 EDT 7:25 assumed pt care from Rachel. [...] DTRs 1+, no clonus. Last UOP 300cc @1999. No PEC symptoms, no s/sx Mg toxicity. [...] MagSO4 dc. Apolinar Choi MD * Kylah Hernández RN - 09/22/2023 1520 EDT 0715- Assumed care P2 pt would was just found to be 6cm and breech. Rapid OR preparation underway. Husb at bedside. Dr Thomson in . [facility] Cat 1. 2117- to OR 1500- pt has been recovering [...] En, with Dr. Choi then scrubbing Dr. Birce out after repair of the uterus. See [...] at 75mL/hr. Plan to recheck around 1500. AAnny Rosado 1640 mg check. Feeling well overall, no headaches/visual changes, no cp/sob/ruq/epigastric pain. CTAB RRR, reflexes 1+, no clonus. UOP 900cc in 2hrs. MD Ulises Stringer MD 09/22/23 12:30 Emergency Medicine Resident, PGY1 * Salinas Calderon MD - 09/21/2023 2246 EDT Images from the original note were [...] CRB placed and misoprostol given. Pitocin started on3677. 22:47: CRB remains in place, overall doing [...] RUQ pain, SOB. Most recent BP 117/96. [place] 2ctx/10min. Heart RRR, lungs CTAB. Cat II [...] RUQ pain, SOB. Most recent BP 117/96. [place] 2ctx/10min. Heart RRR, lungs CTAB. UOP 150cc/3hr. BPs normotensive. Cat I FHT. No s/sx Mg toxicity at this time. Continue to monitor Kerwin Patriciasan MS4 0540: SVE 5/60/-2, BBOW. Patient now feeling contractions very strongly all of a sudden, very shakyand more rectal/vaginal pressure. Likely patient has now kicked into labor, was before just mechanically dilated. Cat 1 FHT. Pit at 20. Plan to continue to uptitrate per protocol, recheck in around 4h, can assess for AROM at that time. MD Yumiko. * Marielena Palencia RN - 09/21/2023 194 EDT 1924: Assumed care of patient from [...] Please reach out as needed. SONIA Hernandez [phone] (TimeGenius secure chat preferred) * Rosalia Gavlez - 09/21/2023 1121 EDT L&D Shift Progress [...] to treat empirically due to hx of with severe [...] MD - 09/21/2023 0910 EDT NST Report [id number] Baseline Heart Rate: 145 Accelerations: present Movement: present Decelerations: absent Contractions: rare x 1. Not painful Interpretation: reactive Co-sign Provider (Physician Name): Dr. Jimbo SILVA, RN [facility] Attending Addendum: I have reviewed the NST above- it is reactive. I agree with the assessment. Apolinar Choi MD * Apolinar Choi MD - 09/21/2023 0612 EDT Antepartum Progress Note Chief Complaint: PEC w SF diagnosed at 31+4, now 34w0d Hospital Day: 17 Overnight Events: BHUPINDER Subjective: Slept well overnight and is feeling [...] x1 and magnesium gtt during transport to [facility]. 24 hr urine protein 500mg on [...] RN - 09/20/2023 1109 EDT NST Report [id number] Baseline Heart Rate: 145 Accelerations: present Movement: present Decelerations: variable Contractions: x 2 not painful Interpretation: reactive Co-sign Provider (Physician Name): Dr. Michael SILVA, RN Associated attestation - Judith Rodriguez MD - 09/20/2023 1142 EDT I have reviewed the heart rate tracing and agree with NST interpretation as above. Judith Rodriguez MD 09/20/2023 11:42 * Judith Rodriguez MD - 09/20/2023 6244 EDT Antepartum Progress Note Chief Complaint: KIMBERLY baer SF diagnosed at 31+4, now 33w6d Hospital [...] x1 and magnesium gtt during transport to [facility]. 24 hr urine protein 500mg on [...] 09/20/23 6:51 Obstetrics & Gynecology, PGY-2 Pager [phone] Attestation: I performed or was present during the chang or critical portions of the visit and participated in the management of the patient on 09/20/2023. I agree with the findings and plan of care documented in the resident's note. Judith Rodriguez MD 09/20/2023 10:26 * Varsha Hernandes MD - 09/19/2023 2200 EDT NST Report [id number] Baseline Heart Rate: 140 Accelerations: present Movement: present Decelerations: variable Contractions: absent Interpretation: reactive nude model notified provider Omaira for prolonged accels. Remained on monitor for additional 20 min. Co-sign Provider (Physician Name): Dr. Varsha THURSTON RN [facility] attending NST on [id number] from 2108 to 2153 I have reviewed the non-stress test tracing above and agree with the interpretation as baseline 140and reactive. Varsha Hernandes MD 09/21/2023 11:02 * Julieta Segal RN - 09/19/2023 1124 EDT NST Report [id number] Baseline Heart Rate: 140 Accelerations: present Movement: present Decelerations: present-variable Contractions: rare Interpretation: reactive Co-sign Provider (Physician Name): Dr. Suleman SILVA RN Associated attestation - Riya Shell MD - 09/19/2023 1820 EDT NST reviewed and agree with reports as below. Reactive NST, one variable deceleration noted. Riya Shell MD PGY5 Maternal Medicine Fellow [facility] 09/19/23 18:19 * Aditya Villar MD - [...] x1 and magnesium gtt during transport to [facility]. 24 hr urine protein 500mg on [...] week delivery, pt and partner currently leaning [id number] week delivery. Will CTM BP, wellbeing. PEC [...] attestation - Riya Shell MD - 09/19/2023 9765 EDT Attestation: I performed or was present [...] MD - 09/18/2023 2100 EDT NST Report [id number] Baseline Heart Rate: 135 Accelerations: present Movement: present Decelerations: absent Contractions: absent Interpretation: reactive Co-sign Provider (Physician Name): Dr. Varsha THURSTON RN MFM attending NST on [id number] from 2004 to 2026 I have reviewed the non-stress test tracing above and agree with the interpretation as baseline 135and reactive. Varsha Hernandes MD 09/21/2023 10:59 * Sandrine Falcon SEARCH OPTIMIZATION ANALYST - 09/18/2023 1226 EDT Antepartum patient continues to remain admitted and stable. No social work/case management needs identified at this time. Will continue to follow progress and check-in with patient periodically. SW to remain available for psychosocial support, care coordination, and admission/discharge planning. Please reach out as needed. Sandrine SONIA Falcon [phone] (TimeGenius secure chat preferred) * Herminia Portillo - 09/18/2023 1143 EDT [facility] Spiritual Care Note Re: Hasmukh Young : 1995, AGE: 28 y.o. ROOM: [place] [address] Spirituality: None BACKGROUND Routine visit. Patient was occupied at the time. INTERVENTIONS Presence CARE PLAN No further plan TIME STAMP: 5 minutes Thank you for the opportunity to provide for this patient's/family's spiritual needs. Philly Brown, [facility] Water Mangle Tender Parts Cataloguer [address] * [address] Tamay[address] - [...] 0.49)* * Growth percentiles are based on [facility] (Girls, 2-20 Years) data. Pertinent Medications: Current Facility-Administered Medications Medication Route Frequency acetaminophen (TYLENOL) tablet 1,000 mg oral Q8H PRN heparin injection 5,000 Units subcutaneous Q12H sodium chloride (OCEAN) 0.65 % nasal spray 1 Vega nasal - both Q2H PRN Pertinent Labs: [...] TAMAYO RD, CD (Call PAS or use Lema21 (SnapLogic) to page RD covering this unit) * Varsha Hernandes MD - 09/18/2023 0750 EDT NST Report [id number] Baseline Heart Rate: Baseline 175 with baseline [...] 0609 EDT Antepartum Progress Note Chief Complaint: PEC [...] x1 and magnesium gtt during transport to [facility]. 24 hr urine protein 500mg on [...] ordered - immunizations: none ROSALIA VILLARREAL-BJ, MS4 06/21/24 6:09 Associated attestation - Varsha Hernandes MD [...] 09/18/2023 9:35 * Varsha Hernandes MD - 09/17/20232143 EDT NST Report [id number] Baseline Heart Rate: 145, then 140 Accelerations: [...] 09/17/2023 9:22 * Rosalia Galvez - 09/17/2023 0684 EDT Antepartum Progress Note Chief Complaint: PEC [...] x1 and magnesium gtt during transport to [facility]. 24 hr urine protein 500mg on [...] MD - 09/16/2023 2030 EDT NST Report [id number] Baseline Heart Rate: 140 Accelerations: present Movement: present-very active/interruption in monitor tracing due to movement Decelerations: present variable rare Contractions: irregular: 2 uterine contractions palpated (mild) Interpretation: reactive Co-sign Provider MD AUBRIE Tubbs RN M attending NST on [id number] from 1924 to [...] Interpretation: reactive Co-sign Provider (Physician Name):dr cecilio LIMA RN MFM attending NST on [id number] from [...] x1 and magnesium gtt during transport to [facility]. 24 hr urine protein 500mg on [...] ordered - immunizations: none ROSALIA VILLARREAL-BJ, MS4 09/16/23 6:49 Associated attestation - Varsha [...] present Decelerations: present Contractions: Irregular Interpretation: reactive [id number] Co-sign Provider (Physician Name): RALF RENTERIA RN M attending NST on [id number] from 2138 to 2305 I have reviewed the non-stress test tracing above and agree with the interpretation as baseline 150and reactive. Varsha Hernandes MD 09/16/2023 10:49 * Varsha Hernandes MD - 09/15/2023 1624 EDT NST Report on nst [id number] pt. Sitting slightly reclined, pillow under hip Baseline Heart Rate: 145 Accelerations: present Movement: present Decelerations: one variable with quick return to baseline Contractions: absent Interpretation: reactive Co-sign Provider (Physician Name):varsha LIMA RN MFM attending NST on [id number] from 844 to 921 I have reviewed the non-stress test tracing above and agree with the interpretation as reactive, although I would have called baseline 140. Varsha Hernandes MD 09/16/2023 10:51 * Rosalia Galvez - 09/15/2023 0782 EDT Antepartum Progress Note Chief Complaint: PEC [...] x1 and magnesium gtt during transport to [facility]. 24 hr urine protein 500mg on [...] needs tdap, ordered - immunizations: none ROSALIA OCHOA-BJ, MS4 09/15/23 7:48 Associated attestation - Varsha [...] EDT NST Report pt. Sitting on nst [id number] Baseline Heart Rate: one part 140 ,one part 145 to 150 Accelerations: present Movement: present Decelerations: possible occasional variable with quick return to baseline Contractions: absent Interpretation: reactive Co-sign Provider (Physician Name):brandon LIMA, RN * Sandrine Falcon MSW - 09/14/2023 1146 EDT Patient attended IUP support group in [facility] this morning from [phone]. Shared openly withpeers and engaged in mutual support to help with coping during hospital admission for high-risk . SONIA Hernandez [phone] ([email or web address].it chat preferred) * Odilia Franks MD - [...] pre- condition(s). Odilia Franks MD * Sandrine Falcon, SEARCH OPTIMIZATION ANALYST - 09/14/2023 0934 EDT Checked in with Hasmukh on 7. Had eventful few days last week with episodes likely related to BP she says. Has now lost her off unit privileges but was really hoping to come to IUP support groupthis morning. Since it is just in the Family Lounge (right outside unit doorway), RN approved for her to attend as this keno writer can call for help if needed. [...] Please reach out as needed. SONIA Hernandez [phone] (TimeGenius secure chat preferred) * Yasmin Owusu MD - 09/13/2023 2304 EDT NST Report [id number] Baseline Heart Rate: 140 Accelerations: present Movement: [...] Co-sign Provider (Physician Name): Judith Rodriguez Nst [phone] DASIA PIPER RN Associated attestation - Judith [...] x1 and magnesium gtt during transport to [facility]. 24 hr urine protein 500mg on [...] tdap, ordered - immunizations: none ROSALIA GALVEZ, MSFeroz 09/14/23 9:07 * Yasmin Owusu MD - 09/13/2023 0049 EDT NST Report [id number] Baseline Heart Rate: 145 Accelerations: present Movement: [...] 09/12/23 19:45 Obstetrics & Gynecology, PGY-3 Pager #[phone] * Ita Molina RN - 09/12/2023 1445 [...] FREEMAN. * Bettye Monroe RN - 09/12/2023 0944 EDT NST Report Baseline Heart Rate: 140 Accelerations: present Movement: present Decelerations: absent Contractions: absent Interpretation: reactive Co-sign Provider (Physician Name): Dr. Salazar [id number] [phone] BETTYE MONROE RN Associated attestation - Esther Salazar MD - 09/12/2023 1225 EDT NST reactive Esther Salazar * Chasity Lee MD - 09/12/2023 0725 EDT Antepartum Progress Note Chief Complaint: PEC [...] x1 and magnesium gtt during transport to [facility]. 24 hr urine protein 500mg on [...] 09/12/23 7:27 Obstetrics & Gynecology, PGY-3 Pager #[phone] Associated attestation - Esther Salazar MD - [...] of care as she lives close to [facility]. Discussed that if the Thursday provider states reasonable to go home that there will likely be a plan for MFM f/u in clinic ante natally. Discussed that it is difficult to promise that [facility] providers would be comfortable to take careof [...] Co-sign Provider (Physician Name):Dr. Golden GAONA RN * Rosalia Galvez - 09/11/2023 1520 [...] vasovagal episodes. Will continue to monitor. Discussed withMFM attending Dr. Choi. Holter monitor was placed [...] x1 and magnesium gtt during transport to [facility]. 24 hr urine protein 500mg on [...] ordered - immunizations: none ROSALIA VILLARREAL-BJ, MS4 09/11/23 6:47 Attending Attestation: I was [...] Choi MD * Tracee Coburn RN - 09/10/20232236 EDT NST Report [id number] Baseline Heart Rate: 145 - change to [...] reactive Co-sign Provider (Physician Name):Hoang Franks MD [phone] Pt went off unit and called because she started to feel SOB. This keno writer found her sitting in her wheel chair in the [facility] hallway. Pt had just started feeling dizzy, [...] (Physician Name):Hoang Franks MD NST ran from 8919-0843 FAVIAN ANDRADE RN * Rosalia Galvez - [...] 29.2 MCHC 34.3 34.6 Recent Labs 09/07/23 0909/10/23 0729 NA -- 133* K -- 4.3 [...] x1 and magnesium gtt during transport to [facility]. BP under good control with minimal [...] Coburn RN - 09/09/20232113 EDT NST Report [id number] Baseline Heart Rate: 145 Accelerations: present Movement: [...] (Physician Name):Hoang Franks MD NST ran from 3798-4930. Variables noted, with accelerations. Not reactive, but [...] CAMPBELL, SOB, Chest pain, RUQ pain, ac eyak LE edema. . -VB, -LOF, -CTX. +FM. [...] LE edema Labs Recent Labs 09/07/23 0912 WBC 8.16 RBC 3.90 HGB 11.3* HCT 32.9* PLT 273 MCV 84 MCH 29.0 MCHC 34.3 Recent Labs 09/07/23911 CREATININE 0.39* Recent Labs 09/07/23911 AST 18 ALT 22 Imaging: Growth completed 09/04,cephalic, anterior placenta, AC 94%ile, EFW 66%ile 2069g Assessment/Plan: 28 y.o. @ 32w2d with PEC w SF diagnosed at 31+4, received procardia x1 andmagnesium gtt during transport to [facility]. BP under good control with minimal [...] records, needs tdap, ordered - immunizations: none SHARONISMAEL LRMUSSEN 09/09/23 6:47 Obstetrics & Gynecology, PGY-2 Pager [phone] Associated attestation - Odilia Franks MD - 09/09/2023 1306 EDT MFMS Attending I saw and examined the patient. I agree with impression and plan as noted above. I spent 20-29 minutes of total time today on the encounter. Pt in chair, feeling well GFM Good bp control without escalation Disc a possible plan for DC Thursday- if stable: APV, BPP, NST on [facility] and on Mondays NST and bp check [facility] in [facility]. If managed as outpt will assess optimal delivery timing in that context, no later than 37 wks Disc readmit if opoor control of bp at home Disc [employer] RNs every day if desired with home bps Would [facility]UY MFM and plan delivery here-prior had significant hosptial stay 912 days) for bpcontrol at [facility]. Low threshold for eadmit/delivery 34 wks Pt [...] RN - 09/08/2023 2110 EDT NST Report [id number] Baseline Heart Rate: 135 Accelerations: present Movement: [...] present Decelerations: present Contractions: irritability Interpretation: reactive [id number] Co-sign Provider (Physician Name): MD NEREYDA Franks RN Associated attestation - Odilia Franks MD - 09/09/2023 1306 EDT I reviewed NST and agree with above Reactive Odilia Franks MD * Sandrine Falcon MSW - 09/08/2023 1056 EDT Checked in with Hasmukh this morning. She is still here she says. Provided list of discounted hotels and pointed out which hotels [facility] works with most frequently. Discussed RMD [...] planning. Please reach out as needed. Sandrine MS EzekielW [phone] (TimeGenius secure chat preferred) Electronically signed by Juancarlosalvaton Sandrine [facility] [facility] [facility] at 09/08/2023 11:00 EDT * Sharon Bird - 09/08/2023 0572 EDT Antepartum Progress Note Chief Complaint: PEC [...] Recent Labs 09/07/23911 CREATININE 0.39* Recent Labs 09/07/23911 AST 18 ALT 22 Imaging: Growth completed 09/04,cephalic, anterior placenta, AC 94%ile, EFW 66%ile 2069g Assessment/Plan: 28 y.o. @ 32w1d with PEC w SF diagnosed at 31+4, received procardia x1 andmagnesium gtt during transport to [facility]. Low normotensive yesterday with BPS 110s/70s [...] 09/08/23 5:59 Obstetrics & Gynecology, PGY-2 Pager [phone] Associated attestation - Odilia Franks MD - [...] stable Disc possible outpt management-she lives near [facility] and wants to be close to [...] absent Contractions: absent Interpretation: reactive NST from [id number], MD harmon notified to review strip, cold juice given to promote reactivity. PerMD ok to come off monitor. Co-sign Provider (Physician Name): MD ALEA Franks RN Associated attestation - Odilia Franks MD - 09/09/2023 1312 EDT I reviewed NST and agree with above Reactive Odilia Franks MD * [facility], SEARCH OPTIMIZATION ANALYST - 09/07/2023 1346 EDT Antepartum Admission Case [...] Patient/family contact information verified: Yes - Hasmukh ([phone]) and FOB/partner Hong ([phone]). Emergency contacts are Hong primarily [patient concerned this is not updated in chart, SWto ensure contacts are updated and Hong's info goes into sticky notes] & mother Akiko ([phone]). Patient address verified: Yes - [address] [place] [address]. Living arrangement: Hitesh live in a home in [place], [place]. They have a blended family; Hasmukh [...] on file Utilities: Not At Risk (09/04/2023) [facility] Utilities Threatened with loss of utilities: [...] some hotel room nights. Also interested in [facility] House but would only stay here for part of the week, SW will look into [facility] requirements for staying in the house - communicated to patient that she would likely need to stay at [facility] for the majority of the nightsduring the week. Patient understanding of these options and limitations. Also asked about boarder rooms and explained the eligibility for accessing these. Will bring list of discounted hotels to [facility]. Transportation plan: Yes Lodging needs: Yes INSURANCE COVERAGE: Insurance: [place] [facility] Registration Financial Advocates referral: No FAMILY RESOURCES/SUPPORTS: Patient's Primary Care Provider: Jeniffer Angulo 's [employer] (if applicable): Not assessed during this visit. Specialists: Chiropractor. Verified: Yes Community Programs: WIC. SNAP. Medicaid. Employment/Childcare: MICHELLE is a SAHM. FOB recently promoted at [employer], they are flexible with histime off if he needs to get here urgently. Social Supports: Endorse good support from family network as well as community. [place] so they know lots of neighbors/residents. Mental Health History/Needs: Declines hx of mood concerns or current concerns re:coping with hospitalization. SW will continue to monitor. CULTURAL, BAPTISM and/or LANGUAGE factors affecting health care/discharge planning: Language/Literacy needs: Tamazight speaking. Spiritual/Cultural requests: None. ADMISSION/DISCHARGE PLANNING: Preferred Pharmacy: No Pharmacies Listed Home Health: Not discussed during this visit. Choice Form Signed: No Family???s identified goals/needs: SWCM will continue to follow patient's progress and remain available for coordination of care, psychosocial support and/or discharge planning. Provided business card for any immediate needs, will plan to visit every 2-3 days during admission. Will f/u with GEOVANNA Burger and provide list of local lodging options as well. No other questions at this time. Other hospital services offered/indicated: None at this time. Referrals Made by SW: None at this time. PLAN FOR ADMISSION & POST-HOSPITAL TRANSITION PLAN: I met with the family, introduced myself and the role of SWCM. Assessed for needs and discussed plans for admission & discharge. SONIA Hernandez [phone] ([employer] secure chat preferred) * Julieta Segal RN - 09/07/2023 1037 EDT NST Report [id number] Baseline Heart Rate: 145 Accelerations: present Movement: present Decelerations: absent Contractions: absent Interpretation: reactive Co-sign Provider (Physician Name): Dr. Golden SILVA, LYDIA Associated attestation - Odilia Franks MD - 09/09/2023 1312 EDT I reviewed NST and agree with above Reactive Odilia Franks MD * Sharon Bird - 09/07/2023 0641 EDT Antepartum Progress Note [...] pending Assessment/Plan: 28 y.o. @ 32w0d with KIMBERLY PHILLIP diagnosed at 31+4, received procardia x1 andmagnesium gtt during transport to [facility]. Stable and majority normotensive after arrival [...] 09/07/23 6:43 Obstetrics & Gynecology, PGY-2 Pager [phone] Associated attestation - Odilia Franks MD - 09/07/2023 1715 EDT MFMS Attending I saw and examined [...] MD * Nereyda Jeffries RN - 09/06/2023 2155 EDT NST Report Baseline Heart Rate: 145 Accelerations: present Movement: present Decelerations: absent Contractions: irritability Interpretation: reactive Co-sign Provider (Physician Name): MD NEREYDA Franks RN Associated attestation - Odilia Franks MD - 09/09/2023 1312 EDT I reviewed NST and agree with above Reactive Odilia Franks MD * Julieta Segal RN - 09/06/2023 0940 EDT NST Report [id number] Baseline Heart Rate: 145 Accelerations: present Movement: present Decelerations: absent Contractions: rare Interpretation: reactive Co-sign Provider (Physician Name): Dr. Suleman SILVA RN Associated attestation - Odilia Franks MD - 09/09/2023 1312 EDT I reviewed NST and agree with above Reactive Odilia Franks MD * Cherrie Shah MD - 09/06/2023 0649 EDT Antepartum Progress Note Chief Complaint: PEC buffy PHILLIP diagnosed at 31+4 Hospital Day: 2 Overnight [...] pending Assessment/Plan: 28 y.o. @ 31w6d with KIMBERLY PHILLIP diagnosed at 31+4, received procardia x1 andmagnesium gtt during transport to [facility]. Stable and majority normotensive after arrival [...] Riya Shell MD 09/06/2023 11:31 * Jesus Thurston, LYDIA - 09/05/2023 2328 EDT NST Report [id number] Baseline Heart Rate: 135 Accelerations: present Movement: present Decelerations: absent Contractions: absent Interpretation: reactive Co-sign Provider (Physician Name): Dr. Odilia THURSTON, LYDIA Associated attestation - Odilia Franks MD - 09/09/2023 1313 EDT I reviewed NST and agree with above Reactive Odilia Franks MD * Julieta Segal RN - 09/05/2023 1413 EDT NST Report [id number] Baseline Heart Rate: 140 Accelerations: present Movement: [...] to L&D after transfer from [facility] - sustained SR BP before transfer, received [...] procardia x1 andmagnesium gtt during transport to [facility]. Stable and majority normotensive after arrival [...] 24 hour urine start. 22:10 Transferred to [place] [id number], report at bedside to LYDIA Hussein. * Edel Muniz RN - 09/04/2023 1515 EDT 1510 Pt arrived via transport from [facility], currently on mag 2g/hr. Rh+ 31+4. S/p [...] 31w4d by US @ 7w4d. Transferred from [facility] for PEC w/ SF. SR blood pressure taken at [facility] at 10:00 AM was 181/94, preeclampsia labs wnl. She received 10 mg nifedipine PO and BMZ #1 09/03 @11:00 am. She was started on Mg 4 g bolus at 1249 and was transferred by ambulance on Mg drip. On arrival to [facility], patient reports headache that she attributes to [...] / GBS unknown Ultrasound Anatomy scan at [facility], normal per pt, report not available FOB [...] 31w4d by US at 7w4d transferred from [facility] for PEC w/ SF. SR BP of 181/94 taken at [facility] 09/03 at 10:00 am. Patient was given 10 mg nifedipine PO and BMZ #1 09/03 @11:00 am. Patient was given Mg 4 g bolus at 1249 and was transferred by ambulance on Mg drip. On arrival to [facility] L&D patient was asymptomatic. Repeat PEC labs [...] GBS unknown Discussed with Dr. Choi. Rosalia Villarreal-Wild Rose, MS4 I was present with the medical [...] used for peripheral line insertion. Name of liner inserter: Lyle Mckee LDAINFO BLOCK Peripheral IV 09/21/23 1212 Left;Posterior Forearm (Active) 09/21/23 1212 Forearm Dressing Change Due: 09/28/23 Size (Gauge): [...] clearly marked on PIV site? Yes 09/21/23 1212 Site Assessment Clean/Dry/Intact 09/21/23 121 Line Status Blood returned;Flushed 09/21/23 121 Dressing Type Transparent 09/21/231211 Dressing Status/Care Changed/New;Site Cleaned 09/21/23 121 Patient response: tolerated well Patient education: done at bedside LYLE MCKEE RN 09/21/2023 * Manuel Shi RN - 09/20/2023 2312 EDTAssociated Order(s): NONSTRESS TEST NST Report Baseline Heart Rate: 130 Accelerations: present Movement: present Decelerations: absent Contractions: rare Interpretation: reactive Placed on monitors from [id number] Co-sign Provider (Physician Name): MANUEL SHI RN documented in this encounter Consult Notes * Radha Pedraza MD - 09/04/2023 1731 EDT NICU Consult Called to consult for Hasmukh Young a 28 y/o mother at 31+4 weeks gestation with a male castle (baby's planned name is James). Mom was admitted for Preeclampsia with severe features and was transferred from [facility]. She has a history of two prior births that required NICU admissions. Discussion was had with Hasmukh and her partner Hong Stearns, focusing primarily on if infant was bornwithin the next 2 weeks. She is s/p BMZ x1 on 09/02 will be due for her second dose tomorrow. Hasmukh is also status post a dose of Magnesium that is not currently planned to continue. Delivery Room: Discussed that peds would be present in the delivery room (in yellow gowns). Explained that after delivery the infant would be taken to the radiant warmer and evaluated by the NICU team. After initial evaluation and stabilization the infant would be taken to the NICU for further management. It was discussed that mom and dad would be able to see and hopefully touch infant prior to his/her transfer to NICU. Screening: [...] of Service: 09/22/2023 Surgeon: Jacki Thomson MD Hearing Aide Technician: Kylah Brice MD, Apolinar Choi MD Procedure: [...] The bladder blade was removed and the 's feet delivered atraumatically and the body and head were delivered using the usual breech maneuvers.The cord was clamped and cut and the was handed off to the waiting pediatric [...] correct times two. Thepatient was taken to [place] [address] PACU in stable condition. No qualified resident [...] Outcome: Met This Shift Flowsheets (Taken 09/25/2023 4717) Area of Focus: GI//Elimination Goal This Shift: will have a bowel movement Note: D: Stable PP pt. Discharging to home/self care. Wanted to have a bowel movement prior to leaving. A: Demonstrated/assisted patient to obtain/watch discharge videos via [employer]. certificate, and, and parentage form completed/collected. Offered [...] Care - Lotus Trammell RN - 09/25/2023 1314 EDT Problem: Daily Care Plan Goals Goal: Care Plan Documentation Outcome: Met This Shift Flowsheets (Taken 09/25/2023 4292) Area of Focus: GI//Elimination Goal This Shift: will have a bowel movement Note: D: Stable PP pt. Discharging to home/self care. Wanted to have a bowel movement prior to leaving. A: Demonstrated/assisted patient to obtain/watch discharge videos via [employer]. certificate, and, and parentage form completed/collected. Offered [...] the original note were not included. [facility] Consult Progress Note Consult Requested By: Routine NICU parent visit Reason for Consult: Prematurity and Infant/maternal separation Subjective: Pumping is going well, I [...] with Hong and their older children in [place], [place] Medical History: Maternal Medical History: PEC [...] chloride (OCEAN) 0.65 % nasal spray 1 Vega, nasal - both, Q2H PRN sodium chloride 0.9 % (flush) flush 5 mL, intravenous, Q8H sodium phosphate (FLEET SALINE) enema 1 Enema, rectal, Daily PRN Maternal Anatomy: Did not assess at this visit Pertinent History: none Current Infant Medications: Information for the patient's : James Young [[id number]] Breast Milk Identification, oral, PRN dextrose 10 %-1/4 NS with KCl 20 mEq/L infusion, intravenous, CONTINUOUS sucrose 24% (TOOTSWEET) solution 0.1-0.3 mL, oral, PRN Infant Anatomy: MARGIE Infants Current Weight: (!) 1770 g (3 lb 14.4 oz) Change from Weight: -5% 24 hour I/O: See NICU chart Information for the patient's : James Young [[id number]] Output for the past 24 hrs: Stool [...] questions regarding possibility of successful exclusive given infant in NICU. Reviewed feeding progression, tools and [...] Care - Opal Goodson RN - 09/25/2023 0449 EDT D: Pt day three post CS delivery of baby boy at 0729, reports/rates incisional pain 09/06. A: Interventions provided include medications(see eMAR), reposition, and rest. R: Pt reports pain after intervention 06/06. Denies need for further intervention at this [...] Comfort Note: D: Pt reports/rates incisional pain 09/06. A: Interventions provided include medications(see eMAR), reposition, and rest. R: Pt reports pain after intervention 07/07. Denies need for further intervention at this time. * Plan of Care - Nona Pollard RN - 09/24/2023 0008 EDT Problem: Daily Care Plan Goals Goal: Care Plan Documentation 09/24/2023 000 by Nona Pollard RN Outcome: Met This Shift Flowsheets (Taken 09/23/2023 3848) Area of Focus: Pain/ Comfort Goal This Shift: Patient wll maintain pain level below 4/10 Data: Patient in 2nd day post C section, patient received Mag Sulfate. Action: Patient complaining of pain ranging from 3/10-6/10, patient has been receiving Oxycodone 10mg PO in addition to Acetaminophen and Ibuprofen. Response: Continue to assess pain and medicate as ordered. NONA OPLLARD RN 09/24/2023 0:09 * Note - Lindsay Hinojosa RN - 09/23/2023 1820 EDT Images from the original note were not included. [facility] Consult Initial Consult Consult Requested By: Routine [...] with Hong and their older children in [place], [place] Medical History: Maternal Medical History: PEC [...] chloride (OCEAN) 0.65 % nasal spray 1 Vega, nasal - both, Q2H PRN sodium chloride 0.9 % (flush) flush 5 mL, intravenous, Q8H Maternal Anatomy: no abnormalities noted Pertinent History: none Current Infant Medications: Information for the patient's : James Young [[id number]] Breast Milk Identification, oral, PRN dextrose 10 % (D10W) infusion, intravenous, CONTINUOUS sucrose 24% (TOOTSWEET) solution 0.1-0.3 mL, oral, PRN Anatomy: MARGIE Infants Current Weight: (!) 1870 g (4 lb 2 oz) Change from Weight: 1% 24 hour I/O: See NICU chart Information for the patient's : James Young [[id number]] Output for the past 24 hrs: Emesis [...] to see next: 09/23 Outpatient Follow Up: SOLANGE HINOJOSA RN IBCLC 09/23/2023 18:21 * L&D Delivery Note - Jacki Thomson MD - 09/22/2023 7652 EDT Delivery Information Hasmukh Young is a 28 y.o. at 34w1d delivered by Low Segment [employer]verse . BBDarien Young [phone] at Gestational Age: 34w1d, Delivered by Low [...] indication/comments: N/A Sepsis Risk Scores (based on CDC incidence of 0.07/999 live births) Calculated Risk [...] Cord Blood Sent: Stem cell collection (by MD)? No Comments: Lacerations/Episiotomy Laceration Repaired? Perineal: None Periurethral: Labial: Sulcus: Vaginal: Cervical: Episiotomy: None Indication: Repair suture: None Procedures Additional Procedures: None Hemorrhage (if applicable) hemorrhage: None Blood Loss Mother: Hasmukh Young #[id number] Start of Mother's Information Delivery Blood Loss 09/22/23 0718 - 09/22/23 0840 Filed Blood Loss- Anesthesia 600 mL Total 600 mL End of Mother's Information Mother: Hasmukh Young #[id number] Uterotonics/PPH Procedures: Uterine massage, Oxytocin, Blood Products Transfused: (if applicable) Labor Length Duration of 1st Stage: hours minutes Duration of 2nd Stage: hours minutes Duration of 3rd Stage: 0 hours 0 minutes Duration of Cord Clamp Delay: seconds Precipitous Labor (<3 hours): No Prolonged Labor (>20 hours): No : Date of : 09/22/2023 Time of : [...] Additional Personnel: KYLAH BRICE;APOLINAR CHOI;DASIA CATALAN;KYLAH HERNÁNDEZ Duration: (Delivered) 1m Induction Duration (if applicable): 18 hours 59 minutes 23 seconds Attending attestation: I was present and scrubbed for the entire delivery. Jacki Thomson MD 09/22/23 9:27 * Plan of Care - Manuel Shi RN - 09/20/2023 2309 EDT Problem: Safety: Goal: Will remain free [...] turned to her left side and dr andres reviewed strip said leaveher on until 1020. Pt. [place] one ctx, mild lasting 50 seconds. She [...] Outcome: Met This Shift Flowsheets (Taken 09/15/2023 193) Area of Focus: Utero Placental Perfusion Goal [...] Goal: Care Plan Documentation Flowsheets (Taken 09/11/2023 1945) Area of Focus: Utero Placental Perfusion Goal [...] Documentation Outcome: Met This Shift Flowsheets (Taken 09/10/20232039) Area of Focus: Utero Placental Perfusion Goal [...] Care - Favian Andrade RN - 09/10/2023 5767 EDT Problem: Lifecycle: Antepartum: Goal: Chance of [...] of Care - Tracee Coburn RN - 09/09/20232116 EDT Images from the original note were [...] of Care - Tracee Coburn RN - 09/08/20232114 EDT Problem: Daily Care Plan Goals Goal: [...] Note - Rea Segal RN - 09/08/2023 9856 EDT Images from the original note were [...] appearing gravid patient (eating dinner) Assessment/Plan: From MD note: 28 y.o. @ 32w1d with PEC w SF diagnosed at 31+4, received procardia x1 and magnesium gtt during transport to [facility]. Low normotensive yesterday with BPS 110s/70s [...] can ask to see anytime Marlin MSN SHORT FILLER BUNCH MACHINE OPERATOR CHIEF LIBRARIAN BRANCH OR DEPARTMENT-BC IBCLC * Plan of Care - Ronald [...] of Care - Alea Young RN - 09/07/20231 EDT Problem: Daily Care Plan Goals Goal: [...] RN, IBCLC * Plan of Care - Sandrine Falcon MSW - 09/07/2023 1544 EDT 09/07/23 1544 Discharge Delay Risk Assessment 2. Hospitalization 2 Major Barrier day total 1-6 1 Minor or major discharge risk delay(s) present? No discharge barriers identified Does the patient meet criteria to be escalated? No Initial assessment status Initial assessment complete? Yes SONIA Hernandez [phone] ([employer] secure chat preferred) * Plan of Care - Baylee Chan, RN - 09/07/2023 2728 EDT Problem: Daily Care Plan Goals Goal: [...] This Shift * Plan of Care - Julieta Segal, LYDIA - 09/06/2023 1006 EDT Problem: Daily Care [...] maintained. * Plan of Care - Julieta Segal, LYDIA - 09/05/2023 1415 EDT Problem: Daily Care [...] 2/10. 24hr urine started on 09/03 at 2104. Action: Monitor maternal/ wellbeing. Educated patient on [...] EDT) 09/29/2023 13:2 5 EDT Scan 2 Sub Prior PROCEDURE/MINOR ANTONIO GICAL ORDERABLES * ORDERS - SCANNED (09/29/2023 12:21 EDT) 09/29/2023 12:2 1 EDT Scan 2 Sub Prior ADMISSION ORDERABLE S * ECG REPORT - SCANNED (09/29/2023 12:21 EDT) 09/29/2023 12:2 1 EDT Scan 2 Sub Prior PROCEDURE/MINOR ANTNOIO GICAL ORDERABLES * TYPE AND SCREEN (09/25/2023 8:52 EDT) ABO A 09/25/2023 10:02 EDT [facility] Rh Factor Positive 09/25/2023 10:02 EDT [facility] Antibody Screen Negative 09/25/2023 10:02 T [facility] Specimen Expires: 09/28/2023 @ 23:59 09/25/2023 10:02 T [facility] Blood VENOUS BLOOD / Unknown Venipuncture / Unknown 09/25/2023 8:52 EDT 09/25/2023 8:59 EDT Jacki Thomson MD BLOOD BANK TESTS Performing Organization Address City/State/[facility] Co de Phone Number [facility] [address] [place] [address] * (ABNORMAL) COMPLETE BLOOD COUNT (09/23/2023 14:37 EDT) WBC 7.46 4.00 - 12.40 K/cmm 09/23/2023 14:54 [facility] RBC 2.97(L) 3.86 - 5.04 M/cmm 09/23/2023 14:54 [facility] Hemoglobin 8.7(L) 11.6 - 15.2 g/dL 09/23/2023 14:54 [facility] HCT 25.7(L) 34.9 - 44.4 % 09/23/2023 14:54 [facility] MCV 87 81 - 98 fL 09/23/2023 14:54 [facility] MCH 29.3 26.7 - 33.3 pg 09/23/2023 14:54 [facility] MCHC 33.9 32.1 - 35.9 g/dL 09/23/2023 14:54 EDT [facility] RDW-CV 13.2 <14.7 % 09/23/2023 14:54 EDT [facility] RDW-SD 41.3 <50.4 fl 09/23/2023 14:54 EDT [facility] PLT 195 141 - 377 K/cmm 09/23/2023 14:54 EDT [facility] MPV 9.5 9.5 - 12.7 fL 09/23/2023 14:54 EDT [facility] Blood VENOUS BLOOD / Unknown Venipuncture / Unknown 09/23/2023 14:37 EDT 09/23/2023 14:42 EDT Chasity Lee MD HEMATOLOGY & PF4 ORD ERABLES [facility] [address] [place] [id number] * POC US ANESTHESIA NERVE BLOCK TAP [...] management options, if applicable. 09/25/2023 9:19 EDT [facility] Final Diagnosis A. PLACENTA, VAGINAL DELIVERY: Castle placenta, 305 grams (<10th percentile for 34 and 1/7 weeks' gestation): - Focal retromembranous hemorrhage. - Maternal vascular malperfusion: - Small for gestational age placenta (by weight if complete). - Accelerated villous maturation. - Increased perivillous fibrin deposition. - Mild to moderate patchy villous edema. - Hypocoiled three vessel umbilical cord. 09/25/2023 9:19 [facility] Attestation There was significant resident/fellow involvement in the diagnostic evaluation of this case. By the signature below, the attending physician certifies that they have personally conducted a gross and/or microscopic examination of the described specimens and rendered or confirmed the above diagnosis. 09/25/2023 9:19 [facility] at 0919 Clinical History PEC with SF, 34 week cs. 09/25/2023 9:19 [facility] Gross Description A. Received fresh [...] there are no coils per 10 cm. Model Maker Scale sections are submitted as follows: BLOCK CHANG A1- membrane roll and cross-section of end of cord A2- membrane roll and cross-section of cord 5 cm from insertion site A3- full thickness section of placental disc adjacent to umbilical cord insertion site A4-A6- 3 full thickness sections of central 2/3 of placental disc ABEL ORO(ASCP) 09/23/2023 9:12 09/25/2023 9:19 [facility] Resident/Masood w: Nikki Sotelo MD PhD 09/25/2023 9:19 [facility] Performing Lab [facility] 9:19 EDT [facility] Scanned Images 09/25/2023 9:19 EDT [facility] Tissue PLACENTAL STRUCTURE / Unknown 09/22/2023 7:47 EDT 09/22/2023 9:01 EDT Comment:Pre-op diagnosis: Breech Jacki Thomson MD PATHOLOGY ORDERABL ES Performing Organization Address [facility]/ZIP Co de Phone Number [facility] [address] [place] [address] * GROUP B STREP PCR (09/21/2023 15:51 EDT) Group B Strep PCR Negative Negative 09/22/2023 14:16 EDT [facility] Swab POOLED SPECIMEN FROM VAGINAL INTROITUS AND RECTAL SWAB / Unknown Swab / Unknown 09/21/2023 15:51 EDT 09/21/2023 16:37 EDT Chasity Lee MD MICROBIOLOGY - GENER AL ORDERABLES Performing Organization Address [facility]/ZIP Co de Phone Number [facility] [address] [place] [address] * BLOOD BANK HOLD (09/21/2023 12:16 EDT) Hold BB Spec will exp at 23:59, 3 days from collect date 09/21/2023 12:47 EDT [facility] Blood VENOUS BLOOD / Unknown Venipuncture / Unknown 09/21/2023 12:16 EDT 09/21/2023 12:27 EDT Chasity Lee MD BLOOD BANK TESTS Performing Organization Address [facility]/ZIP Co de Phone Number [facility]OD [facility] [address] [place], [place] [phone] * HOLD SST (09/21/2023 12:16 EDT) Hold Hold 09/21/2023 13:31 EDT [facility] Blood VENOUS BLOOD / Unknown Venipuncture / Unknown 09/21/2023 12:16 EDT 09/21/2023 12:23 EDT Chasity Lee MD LAB INFO SERVICE AND SUPPORT & PHONE RESULT Performing Organization Address [facility] Co de Phone Number [facility] [address] [place] [address] * HOLD BLUE TOP (09/21/2023 12:16 EDT) Hold Hold 09/21/2023 13:31 EDT [facility] Blood VENOUS BLOOD / Unknown Venipuncture / Unknown 09/21/2023 12:16 EDT 09/21/2023 12:25 EDT Chasity Lee MD LAB INFO SERVICE AND SUPPORT & PHONE RESULT Performing Organization Address [facility] Co de Phone Number [facility] [address] [place] [address] * NONSTRESS TEST (09/20/2023 23:12 EDT) Narrative [facility] POINT OF CARE - 09/20/2023 23:12 EDT Manuel Shi RN ? 09/20/2023 23:14 NST Report Baseline Heart Rate: ??130 Accelerations: ??present Movement: ??present ? Decelerations: ??absent Contractions: ??rare ?? Interpretation: ??reactive Placed on monitors from [id number] Co-sign Provider (Physician Name): MANUEL SHI RN Sharon Bird OB GYNE ORDERABLES Performing Organization Address [facility] Co de Phone Number [facility] POINT OF CARE * URIC ACID (09/19/2023 17:01 EDT) Uric Acid 3.1 2.2 - 7.7 mg/dL 09/19/2023 17:27 EDT [facility] Blood VENOUS BLOOD / Unknown Venipuncture / Unknown 09/19/2023 17:01 EDT 09/19/2023 17:11 EDT Sharon Bird CHEMISTRY & BLOOD GA S ORDERABLES [facility] [address] [place], [place] [phone] * (ABNORMAL) COMPLETE BLOOD COUNT (09/19/2023 17:01 EDT) WBC 10.29 4.00 - 12.40 K/cmm 09/19/2023 17:21 T [facility] RBC 3.99 3.86 - 5.04 M/cmm 09/19/2023 17:21 [facility] Hemoglobin 11.8 11.6 - 15.2 g/dL 09/19/2023 17:21 [facility] HCT 34.1(L) 34.9 - 44.4 % 09/19/2023 17:21 [facility] MCV 86 81 - 98 fL 09/19/2023 17:21 [facility] MCH 29.6 26.7 - 33.3 pg 09/19/2023 17:21 [facility] MCHC 34.6 32.1 - 35.9 g/dL 09/19/2023 17:21 [facility] RDW-CV 12.3 <14.7 % 09/19/2023 17:21 [facility] RDW-SD 38.2 <50.4 fl 09/19/2023 17:21 [facility] PLT 272 141 - 377 K/cmm 09/19/2023 17:21 [facility] MPV 9.3(L) 9.5 - 12.7 fL 09/19/2023 17:21 [facility] Blood VENOUS BLOOD / Unknown Venipuncture / Unknown 09/19/2023 17:01 EDT 09/19/2023 17:11 EDT Sharon Marge HEMATOLOGY & PF4 ORD ERABLES Performing Organization Address City/[facility]/ZIP Co de Phone Number [facility] [address] [place], [place] [phone] * (ABNORMAL) CREATININE (09/19/2023 17:01 EDT) Creatinine 0.37(L) 0.52 - 1.04 mg/dL 09/19/2023 17:27 EDT [facility] eGFR 139 >60 mL/min/1.73 m2 09/19/2023 17:27 EDT [facility] Blood VENOUS BLOOD / Unknown Venipuncture / Unknown 09/19/2023 17:01 EDT 09/19/2023 17:11 EDT Sharon Marge CHEMISTRY & BLOOD GA S ORDERABLES Performing Organization Address [facility] Co de Phone Number [facility] [address] [place], [place] [phone] * LDH (09/19/2023 17:01 EDT) LDH 151 120 - 246 U/L 09/19/2023 17:27 EDT [facility] Blood VENOUS BLOOD / Unknown Venipuncture / Unknown 09/19/2023 17:01 EDT 09/19/2023 17:11 EDT Sharon Bird CHEMISTRY & BLOOD GA S ORDERABLES Performing Organization Address [facility]/ZIP Co de Phone Number [facility] [address] [place] [address] * (ABNORMAL) FIBRINOGEN (09/19/2023 17:01 EDT) Fibrinogen 532(H) 171 - 384 mg/dL 09/19/2023 17:44 EDT [facility] Blood VENOUS BLOOD / Unknown Venipuncture / Unknown 09/19/2023 17:01 EDT 09/19/2023 17:22 EDT Sharon Bird HEMATOLOGY & PF4 ORD ERABLES [facility] [address] [place] [address] * ALT (09/19/2023 17:01 EDT) ALT 20 <35 U/L 09/19/2023 17:27 EDT [facility] Blood VENOUS BLOOD / Unknown Venipuncture / Unknown 09/19/2023 17:01 EDT 09/19/2023 17:11 EDT Sharon Marge CHEMISTRY & BLOOD GA S ORDERABLES Performing Organization Address City/[facility] Co de Phone Number [facility] [address] [place] [address] * AST (09/19/2023 17:01 EDT) AST 18 15 - 46 U/L 09/19/2023 17:27 EDT [facility] Blood VENOUS BLOOD / Unknown Venipuncture / Unknown 09/19/2023 17:01 EDT 09/19/2023 17:11 EDT Sharon Marge CHEMISTRY & BLOOD GA S ORDERABLES Performing Organization Address City/[facility]/ZIP Co de Phone Number [facility] [address] [place] [address] * TYPE AND SCREEN (09/19/2023 8:36 EDT) ABO A 09/19/2023 10:01 EDT [facility] Rh Factor Positive 09/19/2023 10:01 EDT [facility] Antibody Screen Negative 09/19/2023 10:01 EDT [facility] Specimen Expires: 09/22/2023 @ 23:59 09/19/2023 10:01 EDT [facility] Blood VENOUS BLOOD / Unknown Venipuncture / Unknown 09/19/2023 8:36 EDT 09/19/2023 8:49 EDT Jacki Thomson MD BLOOD BANK TESTS Performing Organization Address [facility] Co de Phone Number [facility] [address] [place] [address] * TYPE AND SCREEN (09/16/2023 10:43 EDT) ABO A 09/16/2023 11:55 EDT [facility] Rh Factor Positive 09/16/2023 11:55 EDT [facility] Antibody Screen Negative 09/16/2023 11:55 EDT [facility] Specimen Expires: 09/19/2023 @ 23:59 09/16/2023 11:55 EDT [facility] Blood VENOUS BLOOD / Unknown Venipuncture / Unknown 09/16/2023 10:43 EDT 09/16/2023 10:59 EDT Jacki Thomson MD BLOOD BANK TESTS Performing Organization Address [facility] Co de Phone Number [facility] [address] [place] [address] * TYPE AND SCREEN (09/13/2023 12:17 EDT) ABO A 09/13/2023 14:33 EDT [facility] Rh Factor Positive 09/13/2023 14:33 EDT [facility] Antibody Screen Negative 09/13/2023 14:33 EDT [facility] Specimen Expires: 09/16/2023 @ 23:59 09/13/2023 14:33 EDT [facility] Blood VENOUS BLOOD / Unknown Venipuncture / Unknown 09/13/2023 12:17 EDT 09/13/2023 13:07 EDT Jacki Thomson MD BLOOD BANK TESTS Performing Organization Address City/[facility]/ZIP Co de Phone Number [facility] [address] [place] [address] * (ABNORMAL) FIBRINOGEN (09/12/2023 15:18 EDT) Fibrinogen 544(H) 171 - 384 mg/dL 09/12/2023 15:49 EDT [facility] Blood VENOUS BLOOD / Unknown Venipuncture / Unknown 09/12/2023 15:18 EDT 09/12/2023 15:27 EDT Chasity Lee MD HEMATOLOGY & PF4 ORD ERABLES Performing Organization Address City/[facility]/ZIP Co de Phone Number [facility] [address] [place] [address] * LDH (09/12/2023 15:18 EDT) LDH 146 120 - 246 U/L 09/12/2023 15:41 EDT [facility] Blood VENOUS BLOOD / Unknown Venipuncture / Unknown 09/12/2023 15:18 EDT 09/12/2023 15:26 EDT Chasity Lee MD CHEMISTRY & BLOOD GA S ORDERABLES Performing Organization Address City/[facility]/ZIP Co de Phone Number [facility] [address] [place], [place] [phone] * URIC ACID (09/12/2023 15:18 EDT) Uric Acid 3.4 2.2 - 7.7 mg/dL 09/12/2023 15:41 EDT [facility] Blood VENOUS BLOOD / Unknown Venipuncture / Unknown 09/12/2023 15:18 EDT 09/12/2023 15:26 EDT Chasity Lee MD CHEMISTRY & BLOOD GA S ORDERABLES Performing Organization Address [facility]/ZIP Co de Phone Number [facility] [address] [place], [place] [phone] * (ABNORMAL) CREATININE (09/12/2023 15:18 EDT) Creatinine 0.48(L) 0.52 - 1.04 mg/dL 09/12/2023 15:41 EDT [facility] eGFR 131 >60 mL/min/1.73 m2 09/12/2023 15:41 T [facility] Blood VENOUS BLOOD / Unknown Venipuncture / Unknown 09/12/2023 15:18 EDT 09/12/2023 15:26 EDT Chasity Lee MD CHEMISTRY & BLOOD DC S ORDERABLES Performing Organization Address [facility] de Phone Number [facility] [address] [place], [place] [phone] * (ABNORMAL) COMPLETE BLOOD COUNT (09/12/2023 15:18 EDT) WBC 9.42 4.00 - 12.40 K/cmm 09/12/2023 15:35 [facility] RBC 4.32 3.86 - 5.04 M/cmm 09/12/2023 15:35 [facility] Hemoglobin 12.4 11.6 - 15.2 g/dL 09/12/2023 15:35 [facility] HCT 37.1 34.9 - 44.4 % 09/12/2023 15:35 [facility] MCV 86 81 - 98 fL 09/12/2023 15:35 [facility] MCH 28.7 26.7 - 33.3 pg 09/12/2023 15:35 [facility] MCHC 33.4 32.1 - 35.9 g/dL 09/12/2023 15:35 [facility] RDW-CV 12.1 <14.7 % 09/12/2023 15:35 [facility] RDW-SD 38.0 <50.4 fl 09/12/2023 15:35 EDT [facility] PLT 323 141 - 377 K/cmm 09/12/2023 15:35 EDT [facility] MPV 9.4(L) 9.5 - 12.7 fL 09/12/2023 15:35 EDT [facility] Blood VENOUS BLOOD / Unknown Venipuncture / Unknown 09/12/2023 15:18 EDT 09/12/2023 15:26 EDT Chasity Lee MD HEMATOLOGY & PF4 ORD ERABLES Performing Organization Address City/[facility]/ZIP Co de Phone Number [facility] [address] [place] [address] * ALT (09/12/2023 15:18 EDT) ALT 18 <35 U/L 09/12/2023 15:41 EDT [facility] Blood VENOUS BLOOD / Unknown Venipuncture / Unknown 09/12/2023 15:18 EDT 09/12/2023 15:26 EDT Chasity Lee MD CHEMISTRY & BLOOD GA S ORDERABLES Performing Organization Address City/[facility] Co de Phone Number [facility] [address] [place] [address] * AST (09/12/2023 15:18 EDT) AST 16 15 - 46 U/L 09/12/2023 15:41 EDT [facility] Blood VENOUS BLOOD / Unknown Venipuncture / Unknown 09/12/2023 15:18 EDT 09/12/2023 15:26 EDT Chasity Lee MD CHEMISTRY & BLOOD GA S ORDERABLES Performing Organization Address City/[facility]/ZIP Co de Phone Number [facility] [address] [place] [phone] * (ABNORMAL) POCT GLUCOSE, INTERFACED (09/11/2023 15:03 EDT) Glucose, POC 101(H) 70 - 100 mg/dL 09/11/2023 15:47 EDT [facility] HN LAB POC COMMENT (GLUCOSE) Test Performed by Nursing Services 09/11/2023 15:47 EDT [facility] Blood CAPILLARY BLOOD / Unknown 09/11/2023 15:03 EDT 09/11/2023 15:47 EDT Odilia Franks MD POINT OF CARE TEST O RDERABLES [facility] [address] [place] [address] * HOLTER MONITOR-24: PLACED IN CLINIC (09/11/2023 14:58 EDT) Anatomical Region Laterality Modality Other 09/15/2023 18:4 2 EDT Narrative 09/17/2023 21:13 EDT Patient monitored for 1d 4h, analyzable time was 1d 4h starting on 09/11/2023 02:58 pm. Primary rhythm was Sinus Rhythm. Average heart rate was 85 bpm, Minimum heart rate was 55 bpm on Day 2 :56:09 am, Max heart rate was 133 bpm on Day 2 :06:42 pm SVE(s): [place] was < 0.01 %, 2 total SVE(s) Patient recorded 7 event(s) during the monitoring period - sinus rhythm was present. Sharon Snidersen CARDIAC SERVICES ORD ERABLES * ECG REPORT - SCANNED (09/11/2023 13:45 EDT) 09/11/2023 13:4 5 EDT Scan 2 Sub Prior PROCEDURE/MINOR ANTONIO GICAL ORDERABLES * (ABNORMAL) POCT GLUCOSE, INTERFACED (09/10/2023 12:15 EDT) Glucose, POC 128(H) 70 - 100 mg/dL 09/11/2023 8:13 EDT [facility] HN LAB POC COMMENT (GLUCOSE) Test Performed by Nursing Services 09/11/2023 8:13 EDT [facility] Blood CAPILLARY BLOOD / Unknown 09/10/2023 12:15 EDT 09/11/2023 8:13 EDT Odilia Franks MD POINT OF CARE TEST O RDERABLES [facility] [address] [place] [address] * EKG 12-LEAD (09/10/2023 10:48 EDT) 09/10/2023 10:4 8 EDT Narrative [facility] EKG - 09/11/2023 13:32 EDT ? [facility] ? Test Date: ?2023-09-10 Pat Name: ? HASMUKH YOUNG ? Department: ?? B7 Maternity ? Room: ? B7M22 Gender: ? Female ? Fur Nailer: ?? [id number] : ?1995 ? Requested By: BIRD SHARON Order Number: [id number] ? Reading MD: ?? TANK HINKLE MD ? Measurements Intervals ?Viper ? Rate: ? 101 ?P: ?27 NJ: ? 142 ?QRS: ?27 QRSD: ? 103 [...] Note Tank Hinkle MD - 09/11/2023 [facility] Test Date: 2023-09-10 Pat Name: HASMUKH YOUNG Department: B7 [facility] Room: [facility] Gender: Female Fur Nailer: [id number] : 1995 Requested By: MARGE KUMAR Order Number: [id number] Reading MD: TANK HINKLE MD Measurements Intervals Viper Rate: 101 P: 27 NJ: 142 QRS: 27 QRSD: 103 T: 24 QT: 334 QTc: 435 Interpretive Statements SINUS TACHYCARDIA ABNORMAL RHYTHM ECG Compared to ECG 04/30/2016 19:36:13 No significant changes I reviewed the tracing and have either agreed or edited the findings inthis report. Electronically Signed On 09-11-2023 13:32:37 EDT by TANK ROB. Sharon Bird CARDIAC ECG ORDERABL ES [facility] EKG * NT PRO BNP (09/10/2023 7:29 EDT) NT-pro BNP <20 <95 pg/mL 09/11/2023 18:51 EDT [facility] Comment: In the acute setting NT-proBNP values <300 pg/mL have a 98% NPV for excluding acute heart failure. In outpatient populations, NT-proBNP values <125 have a 99% NPV for excluding heart failure. Blood VENOUS BLOOD / Unknown Venipuncture / Unknown 09/10/2023 7:29 EDT 09/10/2023 7:39 EDT Sharon Bird CHEMISTRY & BLOOD GA S ORDERABLES [facility] [address] [place] [address] * TSH (09/10/2023 7:29 EDT) TSH 3.60 0.47 - 4.68 mIU/L 09/10/2023 14:46 EDT [facility] Blood VENOUS BLOOD / Unknown Venipuncture / Unknown 09/10/2023 7:29 EDT 09/10/2023 7:39 EDT Narrative [facility] - 09/10/2023 14:46 EDT The results of this assay can be falsely lowered due to the consumption of Biotin. hSaron Bird CHEMISTRY & BLOOD GA S ORDERABLES Performing Organization Address City/[facility]/ZIP Co de Phone Number [facility] [address] [place], [place] [phone] * CALCIUM (09/10/2023 7:29 EDT) Calcium 9.0 8.5 - 10.5 mg/dL 09/10/2023 8:10 EDT [facility] Blood VENOUS BLOOD / Unknown Venipuncture / Unknown 09/10/2023 7:29 EDT 09/10/2023 7:39 EDT Sharon Bird CHEMISTRY & BLOOD DC S ORDERABLES Performing Organization Address [facility]/ZIP Co de Phone Number [facility] [address] [place], [place] [phone] * (ABNORMAL) MAGNESIUM (09/10/2023 7:29 EDT) Pathologist [facility] Magnesium 1.6(L) 1.7 - 2.8 mg/dL 09/10/2023 8:10 EDT [facility] Blood VENOUS BLOOD / Unknown Venipuncture / Unknown 09/10/2023 7:29 EDT 09/10/2023 7:39 EDT Sharon Bird CHEMISTRY & BLOOD DC S ORDERABLES Performing Organization Address City/[facility]/ZIP Co de Phone Number [facility] [address] [place] [address] * (ABNORMAL) ELECTROLYTES (09/10/2023 7:29 EDT) Sodium 133(L) 136 - 145 mmol/L 09/10/2023 8:10 EDT [facility] Potassium 4.3 3.5 - 5.0 mmol/L 09/10/2023 8:10 EDT [facility] Chloride 105 96 - 110 mmol/L 09/10/2023 8:10 EDT [facility] CO2 Total 19(L) 22 - 32 mmol/L 09/10/2023 8:10 EDT [facility] Anion Gap 9 5 - 14 mmol/L 09/10/2023 8:10 EDT [facility] Blood VENOUS BLOOD / Unknown Venipuncture / Unknown 09/10/2023 7:29 EDT 09/10/2023 7:39 EDT Sharon Bird CHEMISTRY & BLOOD GA S ORDERABLES Performing Organization Address City/[facility]/ZIP Co de Phone Number [facility] [address] [place] [address] * AST (09/10/2023 7:29 EDT) AST 16 15 - 46 U/L 09/10/2023 7:58 EDT [facility] Blood VENOUS BLOOD / Unknown Venipuncture / Unknown 09/10/2023 7:29 EDT 09/10/2023 7:39 EDT Josey Andres MD CHEMISTRY & BLOOD GAS ORDERABLES Performing Organization Address City/[facility]/ZIP Co de Phone Number [facility] [address] [place] [address] * ALT (09/10/2023 7:29 EDT) ALT 16 <35 U/L 09/10/2023 7:58 EDT [facility] Blood VENOUS BLOOD / Unknown Venipuncture / Unknown 09/10/2023 7:29 EDT 09/10/2023 7:39 EDT Josey Andres MD CHEMISTRY & BLOOD GAS ORDERABLES Performing Organization Address City/[facility]/ZIP Co de Phone Number [facility] [address] [place] [address] * (ABNORMAL) CREATININE (09/10/2023 7:29 EDT) Creatinine 0.39(L) 0.52 - 1.04 mg/dL 09/10/2023 7:58 EDT [facility] eGFR 137 >60 mL/min/1.73 m2 09/10/2023 7:58 T [facility] Blood VENOUS BLOOD / Unknown Venipuncture / Unknown 09/10/2023 7:29 EDT 09/10/2023 7:39 EDT Josey Andres MD CHEMISTRY & BLOOD GAS ORDERABLES Performing Organization Address City/State/[facility] Co de Phone Number [facility] [address] [place] [address] * (ABNORMAL) COMPLETE BLOOD COUNT (09/10/2023 7:29 EDT) Pathologist [facility] WBC 9.58 4.00 - 12.40 K/cmm 09/10/2023 7:48 [facility] RBC 4.21 3.86 - 5.04 M/cmm 09/10/2023 7:48 [facility] Hemoglobin 12.3 11.6 - 15.2 g/dL 09/10/2023 7:48 [facility] HCT 35.5 34.9 - 44.4 % 09/10/2023 7:48 [facility] MCV 84 81 - 98 fL 09/10/2023 7:48 [facility] MCH 29.2 26.7 - 33.3 pg 09/10/2023 7:48 [facility] MCHC 34.6 32.1 - 35.9 g/dL 09/10/2023 7:48 [facility] RDW-CV 12.7 <14.7 % 09/10/2023 7:48 [facility] RDW-SD 38.5 <50.4 fl 09/10/2023 7:48 [facility] PLT 342 141 - 377 K/cmm 09/10/2023 7:48 EDT [facility] MPV 9.4(L) 9.5 - 12.7 fL 09/10/2023 7:48 EDT [facility] Blood VENOUS BLOOD / Unknown Venipuncture / Unknown 09/10/2023 7:29 EDT 09/10/2023 7:39 EDT Josey Andres MD HEMATOLOGY & PF4 O RDERABLES Performing Organization Address [facility]/ZIP Co de Phone Number [facility] [address] [place] [address] * LDH (09/10/2023 7:29 EDT) LDH 148 120 - 246 U/L 09/10/2023 7:58 EDT [facility] Blood VENOUS BLOOD / Unknown Venipuncture / Unknown 09/10/2023 7:29 EDT 09/10/2023 7:39 EDT Josey Andres MD CHEMISTRY & BLOOD GAS ORDERABLES Performing Organization Address [facility] Co de Phone Number [facility] [address] [place] [address] * TYPE AND SCREEN (09/10/2023 7:28 EDT) ABO A 09/10/2023 9:16 EDT [facility] Rh Factor Positive 09/10/2023 9:16 EDT [facility] Antibody Screen Negative 09/10/2023 9:16 EDT [facility] Specimen Expires: 09/13/2023 @ 23:59 09/10/2023 9:16 EDT [facility] Blood VENOUS BLOOD / Unknown Venipuncture / Unknown 09/10/2023 7:28 EDT 09/10/2023 7:44 EDT Jacki Thomson MD BLOOD BANK TESTS Performing Organization Address City/[facility]/ZIP Co de Phone Number [facility] [address] [place], [place] [phone] * TYPE AND SCREEN (09/07/2023 9:12 EDT) ABO A 09/07/2023 11:19 EDT [facility] Rh Factor Positive 09/07/2023 11:19 EDT [facility] Antibody Screen Negative 09/07/2023 11:19 EDT [facility] Specimen Expires: 09/10/2023 @ 23:59 09/07/2023 11:19 EDT [facility] Blood VENOUS BLOOD / Unknown Venipuncture / Unknown 09/07/2023 9:12 EDT 09/07/2023 9:28 EDT Jacki Thomson MD BLOOD BANK TESTS Performing Organization Address [facility] Co de Phone Number [facility] [address] [place], [place] [phone] * AST (09/07/2023 9:12 EDT) AST 18 15 - 46 U/L 09/07/2023 9:42 EDT [facility] Blood VENOUS BLOOD / Unknown Venipuncture / Unknown 09/07/2023 9:12 EDT 09/07/2023 9:27 EDT Josey Andres MD CHEMISTRY & BLOOD GAS ORDERABLES [facility] [address] [place] [address] * ALT (09/07/2023 9:12 EDT) ALT 22 <35 U/L 09/07/2023 9:42 EDT [facility] Blood VENOUS BLOOD / Unknown Venipuncture / Unknown 09/07/2023 9:12 EDT 09/07/2023 9:27 EDT Josey Andres MD CHEMISTRY & BLOOD GAS ORDERABLES Performing Organization Address City/[facility] Co de Phone Number [facility] [address] [place] [address] * (ABNORMAL) CREATININE (09/07/2023 9:12 EDT) Creatinine 0.39(L) 0.52 - 1.04 mg/dL 09/07/2023 9:42 EDT [facility] eGFR 137 >60 mL/min/1.73 m2 09/07/2023 9:42 EDT [facility] Blood VENOUS BLOOD / Unknown Venipuncture / Unknown 09/07/2023 9:12 EDT 09/07/2023 9:27 EDT Josey Andres MD CHEMISTRY & BLOOD GAS ORDERABLES Performing Organization Address [facility] Co de Phone Number [facility] [address] [place], [place] [address] * (ABNORMAL) COMPLETE BLOOD COUNT (09/07/2023 9:12 EDT) WBC 8.16 4.00 - 12.40 K/cmm 09/07/2023 9:41 EDT [facility] RBC 3.90 3.86 - 5.04 M/cmm 09/07/2023 9:41 EDT [facility] Hemoglobin 11.3(L) 11.6 - 15.2 g/dL 09/07/2023 9:41 EDT [facility] HCT 32.9(L) 34.9 - 44.4 % 09/07/2023 9:41 T [facility] MCV 84 81 - 98 fL 09/07/2023 9:41 EDT [facility] MCH 29.0 26.7 - 33.3 pg 09/07/2023 9:41 EDT [facility] MCHC 34.3 32.1 - 35.9 g/dL 09/07/2023 9:41 EDT [facility] RDW-CV 12.9 <14.7 % 09/07/2023 9:41 EDT [facility] RDW-SD 39.1 <50.4 fl 09/07/2023 9:41 EDT [facility] PLT 273 141 - 377 K/cmm 09/07/2023 9:41 EDT [facility] MPV 9.7 9.5 - 12.7 fL 09/07/2023 9:41 EDT [facility] Blood VENOUS BLOOD / Unknown Venipuncture / Unknown 09/07/2023 9:12 EDT 09/07/2023 9:27 EDT Josey Andres MD HEMATOLOGY & PF4 O RDERABLES Performing Organization Address City/[facility]/ZIP Co de Phone Number [facility] [address], [place] [phone] * LDH (09/07/2023 9:12 EDT) LDH 147 120 - 246 U/L 09/07/2023 9:42 EDT [facility] Blood VENOUS BLOOD / Unknown Venipuncture / Unknown 09/07/2023 9:12 EDT 09/07/2023 9:27 EDT Josey Andres MD CHEMISTRY & BLOOD GAS ORDERABLES Performing Organization Address City/[facility]/ZIP Co de Phone Number [facility] [address], [place] [address] * (ABNORMAL) PROTEIN, TOTAL, 24 HR, URINE (09/05/2023 21:05 EDT) Total Protein, Urine 10 See Note mg/dL 09/06/2023 8:00 EDT [facility] Comment: NOTE: Reference range not established Total Protein, Urine 24 hr 500(H) <150 mg/24hrs 09/06/2023 8:00 EDT [facility] Urine Volume 5,000 mL 09/06/2023 8:00 EDT [facility] Urine Collection Period 24.0 Hours 09/06/2023 8:00 EDT [facility] Urine 24 HOUR URINE SPECIMEN / Unknown Urine Collect / Unknown 09/05/2023 21:05 EDT 09/06/2023 7:16 EDT Cely Villar MD URINALYSIS ORDERABLE S [facility] [address] [place] [address] * POC LD US ROUTINE 2ND TRIMESTER [...] (oz) ?? 9 oz EFW by: ?Hadlock ([id number]) Extended Directional Driller 6.4 mm CM 9.1 mm ?? 91% [...] view: not visualized 3-vessel view: not visualized 5-pfoidv-[id number] view: not visualized Heart / Thorax Aortic [...] Limited by advanced gestational age Impression ========= [id number] Obstetrical ultrasound with and maternal evaluation This [...] EFW (oz) 9 oz EFW by: Hadlock ([id number]-[id number]-FL) Extended Directional Driller 6.4 mm CM 9.1 mm 91% Nicolaides [...] view: not visualized 3-vessel view: not visualized 2-sthfdg-gxmvlve view: not visualized Heart / Thorax Aortic [...] Limited by advanced gestational age Impression ========= [id number] Obstetrical ultrasound with and maternal evaluation This [...] wks DATE OF SERVICE: 09/05/2023 Sharon Bird [facility] US LD ORDERABLES * GROUP B STREP PCR (09/04/2023 18:15 EDT) Group B Strep PCR Negative Negative 09/06/2023 14:00 EDT [facility] Swab POOLED SPECIMEN FROM VAGINAL INTROITUS AND RECTAL SWAB / Unknown Swab / Unknown 09/04/2023 18:15 EDT 09/04/2023 18:46 EDT Sharon Bird MICROBIOLOGY - GENER AL ORDERABLES Performing Organization Address [facility] Co de Phone Number [facility] [address], [place] [phone] * URIC ACID (09/04/2023 18:06 EDT) Uric Acid 3.8 2.2 - 7.7 mg/dL 09/04/2023 18:38 EDT [facility] Blood VENOUS BLOOD / Unknown Venipuncture / Unknown 09/04/2023 18:06 EDT 09/04/2023 18:10 EDT Sharon Bird CHEMISTRY & BLOOD GA S ORDERABLES Performing Organization Address [facility] Co de Phone Number [facility] [address], [place] [phone] * LDH (09/04/2023 18:06 EDT) LDH 173 120 - 246 U/L 09/04/2023 18:38 EDT [facility] Blood VENOUS BLOOD / Unknown Venipuncture / Unknown 09/04/2023 18:06 EDT 09/04/2023 18:10 EDT Sharon Bird CHEMISTRY & BLOOD GA S ORDERABLES Performing Organization Address [facility] Co de Phone Number [facility] [address], [place] [phone] * ALT (09/04/2023 18:06 EDT) ALT 22 <35 U/L 09/04/2023 18:38 EDT [facility] Blood VENOUS BLOOD / Unknown Venipuncture / Unknown 09/04/2023 18:06 EDT 09/04/2023 18:10 EDT Sharon Bird CHEMISTRY & BLOOD GA S ORDERABLES Performing Organization Address City/[facility]/ZIP Co de Phone Number [facility] [address], [place] [phone] * AST (09/04/2023 18:06 EDT) AST 21 15 - 46 U/L 09/04/2023 18:38 EDT [facility] Blood VENOUS BLOOD / Unknown Venipuncture / Unknown 09/04/2023 18:06 EDT 09/04/2023 18:10 EDT Sharon Bird CHEMISTRY & BLOOD GA S ORDERABLES Performing Organization Address [facility] Co de Phone Number [facility] [address] [place] [address] * PATIENT RE-TYPE (09/04/2023 16:55 EDT) ABO A 09/04/2023 17:28 EDT [facility] Rh Factor Positive 09/04/2023 17:28 EDT [facility] Blood VENOUS BLOOD / Unknown Venipuncture / Unknown 09/04/2023 16:55 EDT 09/04/2023 17:15 EDT Sharon Snidersen BLOOD BANK TESTS Performing Organization Address City/[facility]/ZIP Co de Phone Number [facility] [address] [place] [address] * (ABNORMAL) PRE-ECLAMPSIA PROTEIN/CREATININE RATIO, URINE (09/04/2023 16:55 EDT) Total Protein, Urine 49 See Note mg/dL 09/04/2023 17:26 EDT [facility] Comment:Reference range not established. Creatinine, Urine 73.7 See Note mg/dL 09/04/2023 17:26 EDT [facility] Comment:Reference range not established. Pre-Eclampsia Protein/Creat inine Ratio, Urine 0.66(H) <0.30 mg/mg Creatinine 09/04/2023 17:26 EDT [facility] Urine URINE / Unknown Urine Collect / Unknown 09/04/2023 16:55 EDT 09/04/2023 17:03 EDT Sharon Snidersen URINALYSIS ORDERABLE S Performing Organization Address [facility] de Phone Number [facility] [address] [place] [address] * (ABNORMAL) CREATININE (09/04/2023 16:48 EDT) Creatinine 0.39(L) 0.52 - 1.04 mg/dL 09/04/2023 17:17 EDT [facility] eGFR 137 >60 mL/min/1.73 m2 09/04/2023 17:17 EDT [facility] Blood VENOUS BLOOD / Unknown Venipuncture / Unknown 09/04/2023 16:48 EDT 09/04/2023 16:56 EDT Sharon Bird CHEMISTRY & BLOOD GA S ORDERABLES Performing Organization Address [facility] de Phone Number [facility] [address] [place] [address] * (ABNORMAL) FIBRINOGEN (09/04/2023 16:48 EDT) Fibrinogen 544(H) 171 - 384 mg/dL 09/04/2023 17:34 EDT [facility] Blood VENOUS BLOOD / Unknown Venipuncture / Unknown 09/04/2023 16:48 EDT 09/04/2023 17:11 EDT Sharon Snidersen HEMATOLOGY & PF4 ORD ERABLES Performing Organization Address City/[facility]/ZIP Co de Phone Number [facility] [address] [place], [place] [phone] * (ABNORMAL) COMPLETE BLOOD COUNT (09/04/2023 16:47 EDT) WBC 11.89 4.00 - 12.40 K/cmm 09/04/2023 17:22 EDT [facility] RBC 4.69 3.86 - 5.04 M/cmm 09/04/2023 17:22 EDT [facility] Hemoglobin 13.6 11.6 - 15.2 g/dL 09/04/2023 17:22 EDT [facility] HCT 39.9 34.9 - 44.4 % 09/04/2023 17:22 EDT [facility] MCV 85 81 - 98 fL 09/04/2023 17:22 EDT [facility] MCH 29.0 26.7 - 33.3 pg 09/04/2023 17:22 EDT [facility] MCHC 34.1 32.1 - 35.9 g/dL 09/04/2023 17:22 EDT [facility] RDW-CV 12.6 <14.7 % 09/04/2023 17:22 EDT [facility] RDW-SD 38.0 <50.4 fl 09/04/2023 17:22 EDT [facility] PLT 396(H) 141 - 377 K/cmm 09/04/2023 17:22 EDT [facility] MPV 10.2 9.5 - 12.7 fL 09/04/2023 17:22 EDT [facility] Blood VENOUS BLOOD / Unknown Venipuncture / Unknown 09/04/2023 16:47 EDT 09/04/2023 16:56 EDT Sharon Bird HEMATOLOGY & PF4 ORD ERABLES [facility] [address] [place], [place] [phone] * TYPE AND SCREEN (09/04/2023 16:47 EDT) ABO A 09/04/2023 17:36 EDT [facility] Rh Factor Positive 09/04/2023 17:36 EDT [facility] Antibody Screen Negative 09/04/2023 17:36 EDT [facility] Specimen Expires: 09/07/2023 @ 23:59 09/04/2023 17:36 EDT [facility] Blood VENOUS BLOOD / Unknown Venipuncture / Unknown 09/04/2023 16:47 EDT 09/04/2023 16:57 EDT Sharon Bird BLOOD BANK TESTS Performing Organization Address City/State/[facility] Co de Phone Number [facility] [address] [place] [address] documented in this encounter Visit Diagnoses Diagnosis Preeclampsia, severe, third trimester- Primary Preeclampsia, severe, third trimester [O14.13] Hx of preeclampsia, prior , currently [O09.299] with other poor obstetric history Postural dizziness with near syncope Lactating mother care and examination of lactating mother delivery delivered [O82] delivery, without mention of indication, delivered, with or without mention of antepartum condition Hx of preeclampsia, prior , currently with other poor obstetric history Postural dizziness with near syncope delivery delivered delivery, without mention of indication, delivered, with or without mention of antepartum condition documented in this encounter Admitting Diagnoses Diagnosis Preeclampsia, [...] mg Given 09/24/2023 12:57 EDT 1,000 mg betamethasone (CELESTONE SOLUSPAN) 6 mg/mL injection 12 mg 12 mg, intramuscular, EVERY 24 HOURS, 1 dose, First dose on Thu09/05/23 at 1100, Routine Given 09/05/2023 11:19 EDT 12 mg Right V astus Lateralis calcium GLUconate 100 mg/mL (10%) injection 1,000 mg 1,000 mg (1 g), intravenous, PRN, Starting on Thu09/21/23 at 1225, Until Thu09/25/23 at 1610, Other, magnesium toxicity, STAT docusate sodium (COLACE) capsule 200 mg 200 mg, oral, DAILY, First dose on Thu09/23/23 at 0900, Until Discontinued, Routine Given 09/25/2023 8:34 EDT 200 mg Given 09/23/2023 8:40 EDT 200 mg famotidine (PEPCID) 20 mg/2 mL injection 1 dose, Starting on Thu09/22/23 at 0713, Until Thu09/22/23 at 0717 Given 09/22/2023 7:17 EDT 20 mg heparin injection 5,000 Units 5,000 Units, subcutaneous, EVERY 12 HOURS, First dose on Thu09/04/23 at 2100, Until Discontinued, Routine Given 09/20/2023 21:02 EDT 5,000 Units Right Upper Abdomen Given 09/20/2023 10:03 EDT 5,000 Units Given 09/19/2023 20:59 EDT 5,000 Units HYDROmorphone (PF) (DILAUDID) 0.5 mg/0.5 mL syringe 0.2-1 mg 0.2-1 mg, intravenous, EVERY 4 HOURS PRN, Starting on Thu09/22/23 at 0929, Until Thu09/23/23 at 0928, Pain, Routine, Recovery & On Unit Given 09/22/2023 9:34 EDT 0.5 mg HYDROmorphone (PF) (DILAUDID) 0.5 mg/0.5 mL [...] injection 1 dose, Starting on Thu09/22/23 at 1349, Until Thu09/22/23 at 1354 ketOROLAC (TORADOL) 30 mg/mL (1 mL) injection 1 dose, Starting on Thu09/22/23 at 1923, Until Thu09/25/23 at 1610 ketOROLAC (TORADOL) injection 15 mg 15 mg, intravenous, EVERY 6 HOURS, 3 doses, First dose on Thu09/22/23 at 1345, Last dose on Thu09/23/23 at 0145, Routine Given 09/23/2023 4:20 EDT 15 mg Given 09/22/2023 19:30 EDT 15 mg Given 09/22/2023 13:54 EDT 15 mg labetalol (NORMODYNE) tablet 100 mg 100 mg, oral, EVERY 12 HOURS, First dose (after last modification) on Thu09/08/23 at 0900, Until Discontinued, Routine Given 09/08/2023 9:33 EDT 100 mg labetalol (NORMODYNE) tablet 100 mg 100 mg, oral, NOW X1, 1 dose, On Thu09/08/23 at 1400, Routine Given 09/08/2023 13:55 EDT 100 mg labetalol (NORMODYNE) tablet 200 mg 200 mg, oral, EVERY 12 HOURS, First dose on Thu09/04/23 at 2100, Until Discontinued, Routine Given 09/07/2023 20:24 EDT 20 0 mg Given 09/07/2023 12:28 EDT 200 mg Given 09/06/2023 20:32 EDT 200 mg labetalol (NORMODYNE) tablet 200 mg 200 mg, oral, NOW X1, 1 dose, On Thu09/04/23 at 1700, Routine Given 09/04/2023 17:12 EDT 200 mg labetalol (NORMODYNE) tablet 200 mg 200 mg, oral, EVERY 12 HOURS, First dose (after last modification) on Thu09/08/23 at 2100, Until Discontinued, Routine Given 09/09/2023 8:26 EDT 200 mg Given 09/08/2023 21:02 EDT 200 mg labetalol (NORMODYNE) tablet 200 mg 200 mg, [...] 09/23/2023 4:00 EDT 25 mL/hr magnesium sulfate 2 g in water 50 mL 2 g, intravenous, Administer over 60 Minutes, NOW X1, 1 dose, On Thu09/11/23 at 0815, Routine New Bag 09/11/2023 9:28 EDT 2 g magnesium sulfate in water 40 gram/1,000 mL (4 %) IVPB pre-mix 2 g/hr (50 mL/hr), intravenous, CONTINUOUS, Starting on Thu09/04/23 at 1645, Until Thu09/04/23 at 1640, Routine New Bag 09/04/2023 15:15 EDT 2 g/hr 50 mL/hr magnesium sulfate in water 40 gram/1,000 mL (4 %) IVPB pre-mix 2 g/hr (50 mL/hr), intravenous, CONTINUOUS, Starting on Thu09/21/23 at 1300, Until Thu09/22/23 at 1258, Routine New Bag 09/22/2023 8:59 EDT 2 g/hr 50 mL/hr Continued by Anesthesia 09/22/2023 7:18 EDT 2 g/hr 50 mL/hr Rate Documented 09/22/2023 7:00 EDT 2 g/hr 50 mL/hr magnesium sulfate in water 40 gram/1,000 mL (4 %) IVPB pre-mix 2 g/hr (50 mL/hr), intravenous, CONTINUOUS, Starting on Thu09/22/23 at 1830, Until Thu09/23/23 at 1059, Routine Rate Documented 09/23/2023 6:00 EDT 2 g/hr 50 mL/ hr Rate Documented 09/23/2023 5:00 EDT 2 g/hr 50 mL/hr Rate Documented 09/23/2023 4:00 EDT 2 g/hr 50 mL/hr magnesium sulfate in water 40 gram/1,000 mL (4 %) IVPB pre-mix 1 dose, Starting on Thu09/04/23 at 1508, Until Thu09/04/23 at 1640 magnesium sulfate IVPB 4 g 100 mL 4 g, intravenous, Administer over 20 Minutes, NOW X1, 1 dose, On Thu09/21/23 at 1245, STAT Given 09/21/2023 12:37 EDT 4 g 300 mL/hr magnesium sulfate IVPB 1 dose, Starting on Thu09/21/23 at 1204, Until Thu09/21/23 at 1257 miSOPROStol (CYTOTEC) 25 mcg tablet 1 dose, Starting on Thu09/21/23 at 1224, Until Thu09/21/23 at 1230 miSOPROStol (CYTOTEC) tablet 25 mcg 25 mcg, vaginal, EVERY 4 HOURS, First dose on Thu09/21/23 at 1245, Until Discontinued, Routine, Pre-Delivery Given by Other 09/21/2023 12:30 EDT 25 mcg ondansetron (PF) (ZOFRAN) 4 mg/2 mL injection 1 dose, Starting on Thu09/22/23 at 0712, Until Thu09/25/23 at 1610 ondansetron (PF) (ZOFRAN) 4 mg/2 mL injection 1 dose, Starting on Thu09/22/23 at 1607, Until Thu09/22/23 at 1610 ondansetron (PF) (ZOFRAN) injection 2 mg 2 mg, intravenous, NOW X1, 1 dose, On Thu09/22/23 at 0145, Routine Given 09/22/2023 1:23 EDT 2 mg ondansetron (PF) (ZOFRAN) injection 4 mg 4 [...] Unit Given 09/25/2023 0:39 EDT 2.5 mg oxyCODONE (ROXICODONE) immediate release tablet 5-10 mg 5-10 mg, oral, EVERY 4 HOURS PRN, Starting on Thu09/22/23 at 0929, Until Thu09/24/23 at 2316, Pain, Routine, Recovery & On Unit Given 09/24/2023 17:12 EDT 5 mg Given 09/24/2023 10:57 EDT 5 mg Given 09/24/2023 5:41 EDT 5 mg oxytocin in lactated ringers (PITOCIN) 30 unit/500 mL infusion solution 1 dose, Starting on Thu09/21/23 at 1641, Until Thu09/21/23 at 1654 oxytocin in lactated ringers (PITOCIN) infusion 30 units/500 mL 1-30 raissa-units/min (1-30 mL/hr), intravenous, CONTINUOUS, Starting on Thu09/21/23 at 1700, Until Thu09/22/23 at 2259, Routine Restarted 09/22/2023 8:05 EDT 100 raissa-units/min 100 mL/hr Continued by Anesthesia 09/22/2023 7:29 EDT 350 raissa-unit s/min 350 mL/hr Rate Change-ICU/L&D Only 09/22/2023 6:40 EDT 18 raissa-unit s/min 18 mL/hr penicillin G potassium 2.5 Million Units in dextrose (D5W) 100 mL IVPB 2.5 Million Units, intravenous, Administer over 30 Minutes, EVERY 4 HOURS, 18 doses, First dose on Thu09/21/23 at 1645, Last dose on Thu09/24/23 at 1245, Type of Therapy: Prophylaxis, Suspected Indication (Select all that apply): GBS + woman, ID Consult: No, Routine Given 09/22/2023 5:15 EDT 2.5 Million Units Given 09/22/2023 0:39 EDT 2.5 Million Units Given 09/21/2023 21:10 EDT 2.5 Million Units penicillin G potassium 5 Million Units in dextrose (D5W) 150 mL IVPB 5 Million Units, intravenous, Administer over 30 Minutes, NOW X1, 1 dose, On Thu09/21/23 at 1245, Type of Therapy: Prophylaxis, Suspected Indication (Select all that apply): GBS + woman, ID Consult: No, STAT Given 09/21/2023 12:42 EDT 5 Million Units polyethylene glycol 3350 (MIRALAX) packet 17 g 17 g, oral, DAILY, First dose on Thu09/23/23 at 0900, Until Discontinued, Routine Given 09/25/2023 8:34 EDT 17 g Given 09/24/2023 17:34 EDT 17 g Given 09/23/2023 8:12 EDT 17 g sodium chloride (OCEAN) 0.65 % nasal spray 1 Vega 1 Vega, nasal - both, EVERY 2 HOURS PRN, Starting on Thu09/08/23 at 1432, Until Thu09/25/23 at 1610, Congestion, Routine Given 09/08/2023 15:11 EDT 1 Vega sodium chloride 0.9 % (flush) flush 5 mL 5 mL, intravenous, EVERY 8 HOURS, First dose on Thu09/04/23 at 1630, Until Discontinued, Routine Given 09/14/2023 17:20 EDT 5 mL Given 09/14/2023 8:00 EDT 5 mL Given 09/13/2023 15:35 EDT 5 mL sodium chloride 0.9 % (flush) flush 5 mL 5 mL, intravenous, EVERY 8 HOURS, First dose on Thu09/22/23 at 0900, Until Discontinued, Routine, Release Given 09/23/2023 17:29 EDT 5 mL Given 09/23/2023 8:12 EDT 5 mL sodium citrate-citric acid (BICITRA) 500-334 mg/5 mL solution 1 dose, Starting on Thu09/22/23 at 0713, Until Thu09/22/23 at 0717 Given 09/22/2023 7:17 EDT 30 mL sodium phosphate (FLEET SALINE) enema 1 Enema 1 Enema, rectal, DAILY PRN, Starting on Thu09/25/23 at 0654, Until Thu09/25/23 at 1610, Constipation, Routine Given 09/25/2023 12:48 EDT 1 Enema terbutaline (BRETHINE) 1 mg/mL injection 1 dose, Starting on Thu09/22/23 at 0712, Until Thu09/22/23 at 0712 Given 09/22/2023 7:12 EDT documented in this encounter Discontinued Medications Medication [...] daily. Takes 81mg and 162mg alternating days 4 added in this encounter Active and Recently Administered Medications Times are shown in EDT. Scheduled Medication Order 09/23/2023 09/24/2023 09/25/2023 docusate sodium (COLACE) capsule 200 mg 200 mg, oral, DAILY, First dose on Thu09/23/23 at 0900, Until Discontinued, Routine 0840 (Given - Provider: Umm Martin RN) 0954 (Hold - Provider: Ronald Holman RN - Reason: Patient/family refused) 0834 (Given - Provider: Lotus Trammell RN) ketOROLAC (TORADOL) injection 15 mg (COMPLETED)(Linked Group [...] MD notified)1319 (Not Given - Provider: Lotus rTammell RN - Reason: Patient/family refused) polyethylene glycol [...] Ronald Holman RN) 0139 (Given - Provider: pOal Goodson RN)1100 (Given - Provider: Lotus Trammell [...] chloride (OCEAN) 0.65 % nasal spray 1 Vega 1 Vega, nasal - both, EVERY 2 HOURS PRN, Starting on Thu09/08/23 at 1432, Until Thu09/25/23 at 1610, Congestion, Routine sodium phosphate (FLEET SALINE) enema 1 Enema 1 Enema, rectal, DAILY PRN, Starting on Thu09/25/23 at 0654, Until Thu09/25/23 at 1610, Constipation, Routine 1248 (Given - Provider: Lotus Trammell, LYDIA) No Frequency Medication Order 09/23/2023 09/24/2023 09/25/2023 [...] Count Last Ordered Date First Ordered Date atropine 0.1 mg/mL syringe 0.5 mg 1 024 ceFAZolin (ANCEF) syringe 1 09/22/2023 dextrose 5% (D5W) with azith romycin (ZITHROMAX) 1 09/22/2023 ketOROLAC (TORADOL) 30 mg/mL (1 mL) injection 1 09/22/2023 naloxone (NARCAN) injection 0.2 mg 1 2023 ondansetron (PF) (ZOFRAN) 4 mg/2 mL injection 1 09/22/2023 oxytocin in lactated ringers (PITOCIN) 30 unit/500 mL infusion solution 1 09/22/2023 calcium GLUconate 100 mg/mL (10%) injection 1,000 mg 1 09/21/2023 betamethasone (CELESTONE STEPHANIE USPAN) 6 mg/mL injection 12 mg 1 09/04/2023 Diet Count Last Ordered Date [...] 09/25/2023 documented in this encounter Care Teams Central Control Room Operator Relationship Specialty Start Date End Date Jeniffer Angulo APRN [address] [place] [address] PCP - General 03/27/17 documented as of this encounter
--- OUTSIDE RECORDS SUMMARY | 2023-11-03 15:57 | XMS_ITS | Encounter Summary ---
Author Organization [facility] Address [address] [place] [address] Care Team Providers Care Net Web Developer Name Role Phone Jeniffer Angulo APRN Primary Care Provider [phone] Encounter Details Date Type Department Care Team (Latest Contact Info) Description 09/04/2023 Travel Social History Tobacco Use Types Packs/Day Years Used Date Smoking Tobacco: Former Cigarettes Passive Smoke Exposure: Current Comments:1 PPD x 7 yrs Alcohol Use Standard Drinks/Week Comments Yes 0 (1 standard drink = 0.6 oz pur e alcohol) 1-2 4-5 d/wk [facility] Utilities Answer Date Recorded In the [...] any time in the past 12 m [facility], were you homeless or living in a penitentiary (including now)? No 09/04/2023 Interpersonal Safety Answer Date Record ed How often does anyone, naveen aly family, hit, punch or physically hurt you? 09/04/2023 How often does anyone, naveen aly family, insult, scream, curse or threaten to hurt you? 09/04/2023 Comments Yes Sex and Gender Information Value Date Recorded [...] No 09/04/2023 documented as of this encounter Plan of Treatment Not on file documented as of this encounter Visit Diagnoses Not on filedocumented in this encounter Care Teams Net Web Developer Relationship Specialty Start Date End Date Jeniffer Angulo APRN [address] [place] [address] PCP - General 03/27/17 documented as of this encounter
--- OUTSIDE RECORDS SUMMARY | 2023-11-03 15:57 | XMS_ITS | Encounter Summary ---
Author Organization [facility] Address [address] [place] [address] Care Team Providers Care Contract Modeler Name Role Phone Jeniffer Angulo APRN Primary Care Provider [phone] Reason for Visit * Auth/Cert (Routine) Specialty Diagnoses / Procedures Referred By [facility] Referred To Contact Diagnoses Preeclampsia, severe, third trimester Preeclampsia with severe features. Referral ID Status Reason Start Date Expiration Date Visits Re quested Visits Authorized [id number] 1 1 Encounter Details Date Type Department Care Team (Late st Contact Info) Description 09/21/2023 23:59 EDT Anesthesia Event [facility] [address] [place], [place] [id number] Carito Fields MD [address] [place] [phone] Anesthesia Record Procedure Summary Procedure Name Responsible Anesthesiologist Anesthesia Start Time Anesthesia Stop Time LABOR CONSULT Events No events on file. Meds * Agents No agents on file. * Blood No blood administrations on file. Lines, Drains, and Airways No LDAs on file. documented in this encounter Social History Tobacco Use Types Packs/Day Years Used Date Smoking Tobacco: Former Cigarettes Passive Smoke Exposure: Current Comments:1 PPD x 7 yrs Alcohol Use Standard Drinks/Week Comments Yes 0 (1 standard drink = 0.6 oz pur e alcohol) 1-2 4-5 d/wk [facility] Utilities Answer Date Recorded In the past 12 months has [employer], gas, oil, or water [employer] threatened to shut off services in your [...] any time in the past [facility] m [facility], were you homeless or living in a correction (including now)? No 09/04/2023 Interpersonal Safety Answer Date Record ed How often does anyone, inclkody aly family, hit, punch or physically hurt you? 09/20/2023 How often does anyone, naveen aly family, insult, scream, curse or threaten to hurt you? 09/20/2023 Comments Yes Sex and Gender Information Value [...] of this encounter OR Notes * Anesthesia Preprocedure Evaluation - Carito Fields MD - 09/21/2023 2100 EDT Anesthesia Preprocedure Evaluation Patient Medical History, [...] (urinary tract infection) Wears glasses Relevant Problems Neuro/Psych (+) Hx of preeclampsia, prior , currently CARDIOVASCULAR (+) Preeclampsia, severe, third trimester Physical Exam Airway Mallampati: III TM distance: [...] documented inthis note PAT Note Notes from 08/22/23 through 09/21/23 No notes of this type exist for this encounter. documented in this encounter Plan of Treatment Not on file documented as of this encounter Visit Diagnoses Not on filedocumented in this encounter Care Teams Contract Modeler Relationship Specialty Start Date End Date Jeniffer Angulo APRN [address] [place] [address] PCP - General 03/27/17 documented as of this encounter
--- OUTSIDE RECORDS SUMMARY | 2023-11-03 15:58 | XMS_ITS | Encounter Summary ---
Author Organization [facility] Address [address] [place] [address] Care Team Providers Care Business Analysis Specialist Name Role Phone Farhad Angulojenna Landa SUELLEN Primary Care Provider [phone] Encounter Details Date Type Department Care Team (Late st Contact Info) Description 03/03/2020 Lab Requisition [facility] Pathology & Laboratory Medicine - [address] [address] Outr Resulting Lab, Provider Social History Tobacco [...] Procedure Name Priority Date/Time Associated Diagnosis Comments DO NOT ORDER STANDALONE - BROAD COVID TEST Today 03/02/2020 13:10 EST COVID-19 TESTING Routine 03/02/2020 13:1 0 EST documented in this encounter Results * DO NOT ORDER STANDALONE - BROAD COVID TEST (03/02/2020 13:10 EST) Pathologist [facility] COVID-19 rt-PCR Result NEGATIVE Negative 03/06/2020 10:02 [facility] Comment: 2019-novel Coronavirus (2019-nCoV) not detected by the qRT-PCR assay. Consider testing for other respiratory viruses or re-collecting for 2019-nCoV testing. Note: Optimum timing for peak viral levels during infections caused by 2019-nCoV have not been determined. Collection of multiple specimens from the same patient may be necessary to detect the virus. Limitations Positive results are indicative of active infection with SARS-CoV-2 but do not rule out bacterial infection or co-infection with other viruses. The agent detected may not be the definite cause of disease. In addition, detection of viral RNA may not indicate the presence of infectious virus or that SARS-CoV-2 is the causative agent for clinical symptoms. Negative results do not preclude SARS-CoV-2 infection and should not be used as the sole basis for patient management decisions. Negative results must be combined with clinical observations, patient history, and epidemiological information. False negative results may also occur if amplification inhibitors are present in the specimen or if inadequate numbers of organisms are present in the specimen. Optimum specimen types and timing for peak viral levels during infections caused by SARS-CoV-2 have not been fully determined. Collection of multiple specimens (types and time points) from the same patient may be necessary to detect the virus. The test was validated for use with upper respiratory specimens obtained via nasopharyngeal or oropharyngeal swabs in VTM, UTM, M4, M5, M6, saline, and MTM media. The performance of this test has not been established for other specimens. Specimens collected using other FDA recommended Specimen Collection Materials listed in the FDA COVID-19 [employer] communication (June 23, 2019) are processed with the caveat that they were not all validated for use with this test and the result must be interpreted in this context. Furthermore, a false negative results may occur if a specimen is improperly collected, transported or handled. If the virus mutates in the RT-PCR target region, SARS-CoV-2 may not be detected or may be detected less predictably. Inhibitors or other types of interference may produce a false negative result. An interference study evaluating the effect of common cold medications was not performed. This test is not FDA-cleared but its performance characteristics were established by our CLIA-certified, CAP-accredited, high complexity laboratory in accordance with CLIA regulations, [employer] (CAP) guidelines (Jun 16, 2019), and FDA guidance (May 28, 2019). This test is only for use under the Food and Drug Administration's Emergency Use Authorization. Swab ENTIRE NASOPHARYNX / Unknown 03/02/2020 13:10 EST 03/03/2020 22:38 EST Provider Outr Resulting Lab MICROBIOLOGY - GENERAL ORDERABLES [place] * COVID-19 TESTING (03/02/2020 13:10 EST) COVID-19 rt-PCR Result NEGATIVE Negative 03/06/2020 10:02 EST [facility] Comment: 2019-novel Coronavirus (2019-nCoV) not detected by the qRT-PCR assay. Consider testing for other respiratory viruses or re-collecting for 2019-nCoV testing. Note: Optimum timing for peak viral levels during infections caused by 2019-nCoV have not been determined. Collection of multiple specimens from the same patient may be necessary to detect the virus. Limitations Positive results are indicative of active infection with SARS-CoV-2 but do not rule out bacterial infection or co-infection with other viruses. The agent detected may not be the definite cause of disease. In addition, detection of viral RNA may not indicate the presence of infectious virus or that SARS-CoV-2 is the causative agent for clinical symptoms. Negative results do not preclude SARS-CoV-2 infection and should not be used as the sole basis for patient management decisions. Negative results must be combined with clinical observations, patient history, and epidemiological information. False negative results may also occur if amplification inhibitors are present in the specimen or if inadequate numbers of organisms are present in the specimen. Optimum specimen types and timing for peak viral levels during infections caused by SARS-CoV-2 have not been fully determined. Collection of multiple specimens (types and time points) from the same patient may be necessary to detect the virus. The test was validated for use with upper respiratory specimens obtained via nasopharyngeal or oropharyngeal swabs in VTM, UTM, M4, M5, M6, saline, and MTM media. The performance of this test has not been established for other specimens. Specimens collected using other FDA recommended Specimen Collection Materials listed in the FDA COVID-19 [employer] communication (June 23, 2019) are processed with the caveat that they were not all validated for use with this test and the result must be interpreted in this context. Furthermore, a false negative results may occur if a specimen is improperly collected, transported or handled. If the virus mutates in the RT-PCR target region, SARS-CoV-2 may not be detected or may be detected less predictably. Inhibitors or other types of interference may produce a false negative result. An interference study evaluating the effect of common cold medications was not performed. This test is not FDA-cleared but its performance characteristics were established by our CLIA-certified, CAP-accredited, high complexity laboratory in accordance with CLIA regulations, [employer] (CAP) guidelines (Jun 16, 2019), and FDA guidance (May 28, 2019). This test is only for use under the Food and Drug Administration's Emergency Use Authorization. Performing Lab [facility] 03/06/2020 10:[address] [facility] Swab 03/02/2020 13:1 0 EST 03/03/2020 22:38 EST Provider Outr Resulting Lab MICROBIOLOGY - GENERAL ORDERABLES [facility] [address] [place] [address] [facility] [place] documented in this encounter Visit Diagnoses Not on filedocumented in this encounter Additional Health Concerns Infection Onset Date Last Indicated Resolved Time COVID-19 03/11/2021 03/11/2021 03/31/2021 22:1 5 EST documented as of this encounter Care Teams Business Analysis Specialist Relationship Specialty Start Date End Date Jeniffer Angulo APRN [address] [place] [address] PCP - General 03/27/17 documented as of this encounter
--- OUTSIDE RECORDS SUMMARY | 2023-11-03 15:58 | XMS_ITS | Encounter Summary ---
Author Organization [facility] Address [address] [place] [address] Care Team Providers Care Outer Diameter Grinder Name Role Phone Mao Hale MD Primary Care Provider [phone] Reason for Visit * Reason Comments Hip Pain right hip Encounter Details Date Type Department Care Team (Late st Contact Info) Description 09/26/2011 11:30 EDT Office Visit [facility] Medicine Program - [address] [address] Unknown, Provider, Ricardo Gomez MD [address] [place] [phone] Hip pain; Synovial cyst Social History Tobacco Use Types Packs/Day Years Used Date Smoking Tobacco: Never Alcohol Use Standard Drinks/Week Comments No 0 (1 standard drink = 0.6 oz pur e alcohol) Sex and Gender Information Value Date Recorded Sex Assigned at Not on file Gender Identity Not on file Sexual Orientation Not on file documented as of this encounter Last Filed Vital Signs Vital Sign Reading Time Taken Comments Blood Pressure - - Pulse - - Temperature - - Respiratory Rate - - Oxygen Saturation - - Inhaled Oxygen Concentration - - Weight 66.2 kg (146 lb) 09/26/2011 1141 EDT Height 172.7 cm (5' 8) 09/26/2011 1141 EDT Body Mass Index 22.2 09/26/2011 1141 EDT Body Mass Index Percentile 60.20% 09/26/2011 114 1 EDT Growth Chart: CDC (Girls, 2- 20 Years) documented in this encounter Progress Notes * Ricardo Gomez MD - 09/26/2011 1151 EDT Chief Complaint Patient presents with ??? Hip Pain right hip SUBJECTIVE: Hasmukh Young is a 16 y.o. female who presents to the office to follow up for her recent right hipinjection performed under fluoroscopy. She did not note relief. She has continued catching in the hip with groin pain. She has tried PT without benefit. Chiropractor. Rest with crutches. She presented several weeks ago with about 2 year history of insidious onset bilateral hip pain, right worse than left. 80% of the pain in the right and 20% of the pain in the left. Her left hip actually just started hurting a few months ago. She can't recall an injury. Locking has occurred once a week during basketball season. Very painful. 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 She plays basketball. No spring sport. She has had an MR arthrogram from [facility]. She states that there were some complications with thearthrogram portion and they weren't sure of the diagnosis. There was suggestion of iliopsoas bursitis. She is here with her mother again today. Past medical, past surgical, medications, allergies, social history and 12 system ROS were all documented on the intake form. These were reviewed and there are no changes. OBJECTIVE: Ht 172.7 cm (68) Wt 66.225 kg (146 lb) BMI 22.20 kg/m2 General: awake, alert, NAD, pleasant Examination of bilateral hip reveals no ecchymosis, erythema, atrophy or deformity. On palpation, no tenderness over greater trochanter. No tenderness anteriorly. ROM of hip is full (45 degrees IR, 45 degrees ER and 120 degrees flexion) with increased tendernessat extremes - mostly with internal rotation and flexion. Increased tenderness with FADIR maneuver. Negative Burt's test. No increased tenderness with log rolling. Distal neurovascular exam intact. DIAGNOSTIC DATA: Plain films taken previously and independently reviewed by me including AP pelvis and frog leg lateral of bilateral hip reveal spherical femoral heads without CAM lesion. Evidence of cross over sign,more notable on the left. Joint spaces well maintained. MR arthrogram of the right hip reveals synovial cyst and iliopsoas edema possible iliopsoas bursitis. No labral tear seen although there was a cyst noted. ASSESSMENT: Bilateral hip pain, right much worse than left. It is not clear where her pain is coming from. She did not respond to the injection. She has catching in the hip. Her MRA reveals a cyst and possible iliopsoas bursitis. No defined labral tear. PLAN: We discussed treatment options for her. I would recommend a discussion with Dr. Ch regarding diagnostic arthroscopy vs an injection in the iliopsoas bursa which I do not perform. The patient verbalized understanding of the above and agreed with this plan. All of her questions were answered to her satisfaction today. 25 minutes of face to face time was spent with the patient, 15 minutes were spent on counseling andcoordination of care of the patient's bilateral hip pain. Ricardo Gomez M.D. 09/26/2011 11:54 Cc: MAO HALE MD and Harshal Ch MD documented in this encounter Plan of Treatment Not on file documented as of this encounter Visit Diagnoses Diagnosis Hip pain Pain in joint, pelvic region and thigh Synovial cyst Synovial cyst, unspecified documented in this encounter Care Teams Outer Diameter Grinder Relationship Specialty Start Date End Date Mao Hale MD [address] [place] [address] PCP - General 07/28/11 03/26/17 documented as of this encounter
--- OUTSIDE RECORDS SUMMARY | 2023-11-03 15:58 | XMS_ITS | Encounter Summary ---
Author Organization [facility] Address [address] [place] [address] Care Team Providers Care Control And Recovery Special Tactics Name Role Phone Jeniffer Angulo APRN Primary Care Provider [phone] Encounter Details Date Type Department Care Team (Latest Contact Info) Description 06/29/2017 7:56 EDT - 06/29/2017 23:59 EDT Hospital Encounter [address] [address] Unknown, Provider, Discharge Disposition: Home or Self Care Social History Tobacco Use Types Packs/Day Years Used Date Smoking Tobacco: Every Day Comments:1 PPD x 7 yrs Alcohol Use Standard Drinks/Week Comments Yes 0 (1 standard drink = 0.6 oz pur e alcohol) 1-2 4-5 d/wk Sex and Gender Information Value Date Recorded Sex Assigned at Not on file Gender Identity Not on file Sexual Orientation Not on file documented as of this encounter Medications at Time of Discharge Medication Sig Dispensed Refills Start Date End Date ARIPiprazole (ABILIFY) 15 mg tablet Take 15 mg by mouth daily. 09/04/2023 hydrOXYzine (ATARAX) 25 mg tablet Take 15 mg by mouth 3 times daily. 09/04/2023 lithium (LITHOBID) 300 mg CR tablet Take 300 mg by mouth 3 times daily. 09/04/2023 LORazepam (ATIVAN) 0.5 mg tablet Take 1 mg by mouth as needed for Anxiety. 09/04/2023 nortriptyline (PAMELOR) 50 mg capsule Take 50 mg by mouth daily. 09/04/2023 ONDANSETRON (ZOFRAN ODT ORAL) Take by mouth as needed. 09/04/2023 propRANolol (INDERAL) 20 mg tablet Take 30 mg by mouth 3 times daily. 09/04/2023 UNABLE TO FIND 25 mg daily. Med Name: Sertralin 09/04/2023 UNABLE TO FIND daily. Med Name: BirthControl- Avaine 09/04/2023 documented as of this encounter Discharge Disposition Disposition Code Departure Means Destination Home or Self Prison documented in this encounter Plan of Treatment Not on file documented as of this encounter Visit Diagnoses Not on filedocumented in this encounter Care Teams Control And Recovery Special Tactics Relationship Specialty Start Date End Date Jeniffer Angulo APRN [address] [place] [address] PCP - General 03/27/17 documented as of this encounter
--- OUTSIDE RECORDS SUMMARY | 2023-11-03 15:58 | XMS_ITS | Encounter Summary ---
Author Organization [facility] Address [address] [place] [address] Care Team Providers Care Associate Loan Officer Name Role Phone Unavailable Primary Care Provider Unavailabl e Encounter Details Date Type Department Care Team (Late st Contact Info) Description 01/20/2006 Before PRISM Converted Visit (Maple) [facility] - Maple conversion [address] [place] [address] Lyubov Whaley MD [address] [place] [phone] Social History Tobacco Use Types Packs/Day Years Used Date Smoking Tobacco: Never Assessed Sex and Gender Information Value Date Recorded Sex Assigned at Not on file Gender Identity Not on file Sexual Orientation Not on file documented as of this encounter Progress Notes * Lyubov Whaley MD - 04/15/2009 6768 EST January 20, 2006 Mao Hale MD [facility] [address] [place] [address] Hale: It was a pleasure to see Hasmukh Young again on January 20, 2006. Hasmukh is a 10-year-old girl with migraine headaches, who is treated with Elavil. I last saw Hasmukh roughly 4 months ago. She comes in today for an urgently scheduled visit due to amarked increase in headaches. Hasmukh has been treated with Elavil and at the time of the visit in August was complaining of headaches roughly 2-3 times each month. She now tells me the headaches are occurring roughly every 4-5 days. They increased upon returning to school. She says the headaches are severe right away and they are generally frontal in location. She does feel nauseous and will vomit several times with the typical migraine. She does complain of photophobia, and her parents describe her as not wanting to be touched when she has a headache. She generally refuses to take medications at this point and can remain this way throughout the day. The following day, she still seems somewhat icky according to her mother. The Imitrex appears to work if it is used immediately. She will then fall asleep and feel better. Unfortunately if she begins vomiting, she refuses the Imitrex and may then vomit multiple times before sleeping through the night. The migraines appear to come on either in the morningor later in the day. She has missed roughly 4 days of school thus far this year. She also complains of what she is describing as blackouts . She says that things suddenly appear dark and she cannot hear or move. This most recently happened in the shower. It has also happened while she is seated or without any obvious position change or othertrigger. On one occasion, she vomited immediately after the experience and later in the day developed a migraine. The episodes are occurring roughly every other day at this point. Hasmukh has also been noted to have a weight loss. She weighs in today at 87.6 lbs. and at the time of the last visit weighed 100 lbs. This is over a period of 4 months that she appears to have lost 15 lbs. Her family does note that she is eating somewhat less and Hasmukh describes feeling full quickly. She denies binging or purging or any attempts at dieting or weight loss. REVIEW OF SYSTEMS: Hasmukh has had no fever or cold symptoms. Her appetite has been decreased as described above. She has had vomiting only with the migraines and has had no diarrhea. She has not had a rash. She does not yet have her menstrual period. The remainder of systems were negative. CURRENT MEDICATIONS: 1. Imitrex 5 mg nasal spray, taken with 2 doses as needed. 2. Elavil 50 mg nightly. ALLERGIES: She has no known allergies. PHYSICAL EXAMINATION: Hasmukh's weight was 39.7 kg and height 5 feet 1 inch. Blood pressure was 109/77 and heart rate was 72. Her general exam was unremarkable. Neurologic exam was also normal. She had sharp disc margins seen bilaterally and eye movements werefull. Her face was symmetric. She had normal muscle tone throughout with good power in all extremities. Reflexes were 2+ throughout. She performed well on [id number] testing and tandem gait. IMPRESSION: Hasmukh is a 10-year-old girl with migraine headaches. They have increased since returning to school and she is missing a fair amount of school from the headaches. She also appears to havelost 15lbs. over a period of a few months and the cause for this is unclear. In addition, she is having unusual episodes with visual loss and darkening, and they do not appear to consistently occur when she is rising from a seated position as we would expect with a vasovagal event. With regard to the blacking out episodes, I discussed that it is possible that they are seizures, though I think this is unlikely. I did suggest, however, that it would be best to obtain an ambulatory EEG study and try to capture one of the spells to insure it does not look like a seizure. I will go ahead and submit some paperwork for this today. I am quite concerned about her weight loss and do not have any obvious explanation for a 15 lb. loss. I did send some blood work today, including a blood count, electrolytes, including an AST and ALT, thyroid function tests, and an ESR. All of these studies returned normal. With regard to the increase in headaches, I discussed with her family that we will occasionally adda second medication to try to improve headache control. I think we should wait before further discussing this until we have clarified the nature of the blackouts and weight concerns, as these, too, could be impacting on her headache frequency. I would advise that she be sure to eat 3 regular meals a day and remain hydrated. She should get regular sleep. Her parents and indeed attentive to all these issues. It was a pleasure to see Hasmukh. I would like to see her back in 6 weeks. Please do not hesitate to call with questions or concerns. Sincerely, Signed by Lyubov Whaley MD 02/12/2006 10:23 Layla Lockhart MD Lyubov Whaley MD - Jean-Pierre Whaley MD A - [facility] Job ID: [id number] Document ID: [id number] cc: Mao Hale MD documented in this encounter Plan of Treatment Not on file documented as of this encounter Visit Diagnoses Not on filedocumented in this encounter
--- OUTSIDE RECORDS SUMMARY | 2023-11-03 15:58 | XMS_ITS | Encounter Summary ---
Author Organization [facility] Address [address] [place] [address] Care Team Providers Care Client Manager Name Role Phone Jeniffer Angulo APRN Primary Care Provider [phone] Encounter Details Date Type Department Care Team (Latest Contact Info) Description 01/12/2018 10:02 EDT - 01/12/2018 23:59 EDT Hospital Encounter [address] [address] Unknown, Provider, Discharge Disposition: Home or Self [...] Code Departure Means Destination Home or Self Correction documented in this encounter Plan of Treatment Not on file documented as of this encounter Visit Diagnoses Not on filedocumented in this encounter Care Teams Client Manager Relationship Specialty Start Date End Date Jeniffer Angulo APRN [address] [place] [address] PCP - General 03/27/17 documented as of this encounter
--- OUTSIDE RECORDS SUMMARY | 2023-11-03 15:58 | XMS_ITS | Encounter Summary ---
Author Organization [facility] Address [address] [place] [address] Care Team Providers Care Drum Loader And Unloader Name Role Phone Mao Hale MD Primary Care Provider [phone] Jeniffer Angulo APRN Primary Care Provider [phone] Encounter Details Date Type Department Care Team (Late st Contact Info) Description 04/30/2016 Historical Results Only [facility] - Main [address] [address] Ortega Rangel MD [address] [place] [phone] Social History Tobacco Use Types Packs/Day Years [...] Procedure Name Priority Date/Time Associated Diagnosis Comments DRUG SCREEN, PRESCRIPTION/OTC, URINE Routine 04/30/2016 20:26 EST URINE CHEMICAL (DIP) & SEDIMENT (MICRO) WITHOUT REFLEX TO CULTURE Routine 04/30/2016 20:26 EST ETHYL ALCOHOL - [facility] Routine 04/30/2016 19:28 EST COMPLETE BLOOD COUNT WITH DIFFERENTIAL (AUTO) Routine 04/30/2016 19:28 EST THYROID CASCADE Routine 04/30/2016 19:28 EST COMPREHENSIVE METABOLIC PANEL (CMP) Routine 04/30/2016 19:28 EST documented in this encounter Results * UA, CHEMICAL AND SEDIMENT ANALYSIS (DIPSTICK AND MICROSCOPIC) (04/30/2016 20:26 EST) URINE APPEARANCE - [facility] Clear CLEAR 04/30/2016 20:45 [facility] URINE BILIRUBIN - DIPSTICK - [facility] Negative NEGATIVE 04/30/2016 20:45 [facility] URINE BLOOD - [facility] Negative NEG 04/30/2016 20:45 [facility] URINE COLOR - [facility] Yellow YELLOW 04/30/2016 20:45 [facility] URINE GLUCOSE - DIPSTICK - [facility] Negative NEGATIVE 04/30/2016 20:45 [facility] URINE KETONE - [facility] Negative NEGATIVE 04/30/2016 20:45 [facility] URINE LEUK ESTERASE - [facility] Negative NEG 04/30/2016 20:45 [facility] URINE NITRITE - DIPSTICK - [facility] Negative NEG 04/30/2016 20:45 [facility] URINE PH - [facility] 7.0 4.0 - 8.0 7 20:45 [facility] URINE PROTEIN - DIPSTICK - [facility] Negative NEG 04/30/2016 20:45 [facility] URINE SPECIFIC GRAVITY - [facility] <=1.005 1.001 - 1.035 04/30/2016 20:45 [facility] URINE UROBILINOGEN - DIPSTICK - [facility] 0.2 0.2 - 1.0 04/30/2016 20:45 [facility] 04/30/2016 20:2 6 EST 04/30/2016 20:36 EST [facility] - 04/30/2016 20:45 EST Does PT Have a Latex Allergy? NO Tila Aguilar MD URINALYSIS ORD ERABLES [facility] * DRUG SCREEN, PRESCRIPTION/OTC, URINE (04/30/2016 20:26 EST) AMPHETAMINES NEG NEG 04/30/2016 20:53 [facility] BARBITURATES,UR - [facility] NEG NEG 04/30/2016 20:53 [facility] BENZODIAZEPINES NEG NEG 7 20:53 [facility] COCAINE,URINE - [facility] NEG NEG 03/2016 20:53 [facility] MAMP (METHAMPHETAMINES - [facility] NEG NEG 04/30/2016 20:53 [facility] MARIJUANA,URINE - [facility] NEG NEG 04/30/2016 20:53 [facility] MTD (METHADONE) - [facility] NEG NEG 04/30/2016 20:53 [facility] OPIATES,URINE - [facility] NEG NEG 03/2016 20:53 [facility] OXY (OXYCODONE) - [facility] NEG NEG 04/30/2016 20:53 [facility] PCP (PHENCYCLIDINE) - [facility] NEG NEG 04/30/2016 20:53 [facility] PROPOXYPHENE (PPX) - [facility] NEG NEG 04/30/2016 20:53 [facility] TRICYCLIC ANTIDEPRESSANTS - [facility] NEG NEG 04/30/2016 20:53 [facility] Comment: Drug Class ?Cutoff Concentration Amphetamines (AMP) ?500 ng/ml Barbiturates (BAR) ?200 ng/ml Benzodiazepines (BZO) ? 150 ng/ml Cocaine (RUDDY) ? 150 ng/ml Methamphetamine (mAMP) ?500 ng/ml Methadone (MTD) ? 200 ng/ml Opiates (OPI) ? 100 ng/ml Oxycodone (OXY) ? 100 ng/ml Phencyclidine (PCP) ?25 ng/ml Tetrahydrocannabinol (THC) ? 50 ng/ml Propoxyphene (PPX) ?300 ng/ml Tricyclic antidepressants (TCA) ? 300 ng/ml *Unconfirmed screening results are to be used for medical purposes only.* 04/30/2016 20:2 6 EST 04/30/2016 20:36 EST Narrative [facility] - 04/30/2016 20:53 EST Does PT Have a Latex Allergy? NO Ortega Rangel MD URINALYSIS ORDER JENNY Performing Organization Address [facility] Co de Phone Number [facility] * THYROID CASCADE (04/30/2016 19:28 EST) TSH 1.93 0.35 - 5.50 uIU/mL 04/30/2016 20:03 EST [facility] 04/30/2016 19:2 8 EST 04/30/2016 19:36 EST Narrative [facility] - 04/30/2016 20:03 EST Does PT Have a Latex Allergy? NO Ortega Rangel MD CHEMISTRY & BLOO D GAS ORDERABLES Performing Organization Address [facility]/ZIP Co de Phone Number [facility] * ETHYL ALCOHOL - [facility] (04/30/2016 19:28 EST) Pathologist [facility] [place] ETHYL ALCOHOL - [facility] <3.0 0.0 - 60.0 mg/dL 04/30/2016 19:59 [facility] Comment: *Unconfirmed screening results are to be used for medical purposes only.* 04/30/2016 19:2 8 EST 04/30/2016 19:36 EST Narrative [facility] - 04/30/2016 20:03 EST Does PT Have a Latex Allergy? NO Ortega Rangel MD CHEMISTRY & BLOO D GAS ORDERABLES [facility] * (ABNORMAL) COMPREHENSIVE METABOLIC PANEL (CMP) (04/30/2016 19:28 EST) Pathologist [facility] [place] Albumin % 4.1 3.4 - 5.0 g/dL 04/30/2016 19:57 [facility] ALKALINE PHOSPHATASE - [facility] 63 41 - 126 U/L 04/30/2016 19:57 [facility] BILIRUBIN TOTAL 0.4 0.0 - 1.0 mg/dL 04/30/2016 19:57 [facility] BUN - [facility] 10 7 - 18 mg/dL 04/30/2016 19:57 [facility] CALCIUM - [facility] 9.7 8.5 - 10.1 mg/dL 04/30/2016 19:57 [facility] Chloride 106 98 - 107 mEq/L 04/30/2016 19:57 [facility] CO2 Total 23 21 - 32 mEq/L 04/30/2016 19:57 [facility] CREATININE 0.79 0.5 - 1.3 mg/dL 04/30/2016 19:57 [facility] eGFR >60 04/30/2016 19:57 [facility] Comment: Chronic renal impairment is defined as GFR <60 Multiply result by 1.210 for patients. eGFR calculated using the IDMS-traceable MDRD Study Equation. ??(effective 01/30/2014) Anion Gap 10 5 - 15 04/30/2016 19:57 [facility] GLUCOSE - [facility] 110(H) 70 - 100 mg/dL 04/30/2016 19:57 [facility] Potassium 4.1 3.5 - 5.0 mEq/L 04/30/2016 19:57 [facility] Sodium 139 135 - 145 mEq/L 04/30/2016 19:57 [facility] TOTAL PROTEIN - [facility] 7.9 6.4 - 8.2 gm/dl 04/30/2016 19:57 [facility] SGOT/AST - [facility] 14 10 - 37 U/L 04/30/2016 19:57 [facility] SGPT/ALT - [facility] 20 12 - 78 U/L 04/30/2016 19:57 [facility] 04/30/2016 19:2 8 EST 04/30/2016 19:36 EST [facility] - 04/30/2016 20:03 EST Does PT Have a Latex Allergy? NO Ortega Rangel MD CHEMISTRY & BLOO D GAS ORDERABLES [facility] * (ABNORMAL) COMPLETE BLOOD COUNT WITH DIFFERENTIAL (AUTO) (04/30/2016 19:28 EST) ABSOLUTE NEUTROPHIL COUN - [facility] 6.33 1.7 - 7.0 10e3/ul 04/30/2016 19:46 [facility] BASO # - [facility] 0.03 0.0 - 0.3 10e3/uL 04/30/2016 19:46 [facility] BASO % - [facility] 0 0 - 2 % 04/30/2016 19:46 [facility] EOS # - [facility] 0.05 0.05 - 0.5 10e3/uL 04/30/2016 19:46 [facility] EOS % - [facility] 1 0 - 5 % 04/30/2016 19:46 [facility] GRAN % - [facility] 78 40 - 80 % 04/30/2016 19:46 [facility] HEMATOCRIT - [facility] 40.9 34.0 - 47.0 % 04/30/2016 19:46 [facility] HEMOGLOBIN - [facility] 14.8 11.2 - 15.7 g/dl 04/30/2016 19:46 [facility] IG# - [facility] 0.01 0 - 0.07 10e3/uL 04/30/2016 19:46 [facility] IG% - [facility] 0.1 0 - 0.9 % 04/30/2016 19:46 [facility] LYMPH # - CV 1.30 0.9 - 2.9 10e3/uL 04/30/2016 19:46 [facility] LYMPH% - [facility] 16(L) 20 - 40 % 04/30/2016 19:46 [facility] MEAN CORPUSCULAR HGB - [facility] 30.9 26 - 34 pg 04/30/2016 19:46 [facility] MEAN CORPUSCULAR HGB CONC - [facility] 36.2(H) 31 - 36 g/dL 04/30/2016 19:46 [facility] MEAN CELL VOLUME - [facility] 85.4 77 - 100 fl 04/30/2016 19:46 [facility] MONO # - [facility] 0.43 0.3 - 0.9 10e3/uL 04/30/2016 19:46 [facility] MONO% - [facility] 5 0 - 12 % 04/30/2016 19:46 [facility] PLATELET COUNT 324 150 - 400 10e3/ul 04/30/2016 19:46 [facility] RED BLOOD COUNT - [facility] 4.79 3.8 - 5.2 10e6/ul 04/30/2016 19:46 [facility] RED CELL DISTRI WIDTH - [facility] 12.1 11.8 - 15.6 % 04/30/2016 19:46 [facility] WHITE BLOOD COUNT - [facility] 8.2 3.5 - 10.5 10e3/ul 04/30/2016 19:46 [facility] 04/30/2016 19:2 8 [facility] 04/30/2016 19:37 EST Narrative [facility] - 04/30/2016 19:46 EST Does PT Have a Latex Allergy? NO Ortega Rangel MD HEMATOLOGY & PF4 ORDERABLES [facility] documented in this encounter Visit Diagnoses Not on filedocumented in this encounter Care Teams Drum Loader And Unloader Relationship Specialty Start Date End Date Mao Hale MD [address] [place] [id number] PCP - General 07/28/11 03/26/17 Jeniffer Angulo APRN [address] [place], [place] [address] PCP - General 03/27/17 documented as of this encounter
--- OUTSIDE RECORDS SUMMARY | 2023-11-03 15:58 | XMS_ITS | Encounter Summary ---
Author Organization [facility] Address [address] [place] [address] Care Team Providers Care Press Operator Carbon Products Name Role Phone Unavailable Primary Care Provider Unavailabl e Encounter Details Date Type Department Care Team (Late st Contact Info) Description 01/20/2006 7:48 EDT Hospital Encounter [facility] [place] [address] [place] [address] Lyubov Whaley MD [address] [place] [phone] Social History Tobacco Use Types Packs/Day Years Used Date Smoking Tobacco: Former Cigarettes Passive Smoke Exposure: Current Comments:1 PPD x 7 yrs Alcohol Use Standard Drinks/Week Comments Yes 0 (1 standard drink = 0.6 oz pur e alcohol) 1-2 4-5 d/wk [facility] Utilities Answer Date Recorded In the past 12 months has e [employer], gas, oil, or water [employer] threatened to shut off services in your [...] any time in the past 12 m [facility], were you homeless or living in a fpc (including now)? No 09/04/2023 Interpersonal Safety Answer [...] Procedure Name Priority Date/Time Associated Diagnosis Comments SED RATE Routine 01/20/2006 9:50 EDT COMPLETE BLOOD COUNT AND DIFFERENTIAL Routine 01/20/2006 9:50 EDT TSH Routine 01/20/2006 9:50 EDT T4 FREE Routine 01/20/2006 9:50 EDT COMPREHENSIVE METABOLIC PANEL (CMP) Routine 01/20/2006 9:50 EDT documented in this encounter Results * TSH (01/20/2006 9:50 EDT) TSH 2.37 0.35 - 5.00 uIU/mL [facility] 01/20/2006 9:50 EDT 01/20/2006 10:18 EDT Lyubov Whaley MD CHEMISTRY & BLOOD GA S ORDERABLES [facility] [address] [place] [address] * SED. RATE:WESTERGREN (01/20/2006 9:50 EDT) Pathologist [facility] Sed. Rate Westergren 8 0 - 20 mm/hr [facility] 01/20/2006 9:50 EDT 01/20/2006 10:18 EDT Lyubov Whaley MD HEMATOLOGY & PF4 ORD ERABLES Performing Organization Address [facility] de Phone Number [facility] [address] [place] [address] * T4 FREE (01/20/2006 9:50 EDT) [facility] Free T4 1.2 0.8 - 1.5 ng/dL [facility] 01/20/2006 9:50 EDT 01/20/2006 10:18 EDT Lyubov Whaley MD CHEMISTRY & BLOOD GA S ORDERABLES Performing Organization Address [facility] Phone Number [facility] [address] [place] [address] * (ABNORMAL) COMPREHENSIVE METABOLIC PANEL (01/20/2006 9:50 EDT) [facility] Potassium 4.6 3.6 - 5.2 mEq/L [facility] Sodium 137 136 - 145 mEq/L [facility] Chloride 104 96 - 110 mEq/L [facility] CO2 28 24 - 32 mEq/L [facility] Total Alkaline Phosphatase 271 105 - 420 U/L [facility] Bilirubin, Total <0.5 0.0 - 1.4 mg/dl [facility] AST 34 16 - 46 U/L [facility] ALT 30 10 - 30 U/L [facility] Albumin 4.6 3.0 - 5.5 g/dl [facility] Total Protein 7.2 6.3 - 8.6 g/dl [facility] Creatinine 0.63 0.4 - 1.0 mg/dl [facility] GFR, Calculated Age <18 ml/min/1.7 3m2 [facility] BUN 16 7 - 18 mg/dl [facility] Calcium 10.1 8.5 - 10.5 mg/dl [facility] Calculated Calcium 9.9 8.5 - 10.5 mg/dl [facility] Glucose, Serum 103(H) 70 - 100 mg/dl [facility] Fasting? No [facility] Albumin/Globulin Ratio 1.8 [facility] 01/20/2006 9:50 EDT 01/20/2006 10:18 EDT Lyubov Whaley MD CHEMISTRY & BLOOD GA S ORDERABLES [facility] [address] [place] [address] * (ABNORMAL) HEMAGRAM AND DIFFERENTIAL (01/20/2006 9:50 EDT) WBC 6.71 4.5 - 13.0 K/cmm [facility] RBC 5.04 4.10 - 5.10 M/cmm [facility] Hemoglobin 14.6 12.0 - 16.0 gm/dl [facility] HCT 43.2 36.0 - 46.0 % [facility] MCV 86 78 - 102 fl [facility] MCH 28.9 pg [facility] MCHC 33.7 gm/dl [facility] PLT 338(H) 156 - 312 K/cmm [facility] RDW-CV 14.1 % [facility] % Neutrophils 58.5 % [facility] % Lymphocytes 33.6 % [facility] % Monocytes 6.5 % [facility] % Eosinophils 1.1 % [facility] % Basophils 0.3 % [facility] ABS Neutrophils 3.92 K/cmm [facility] ABS Lymphs 2.26 K/cmm [facility] ABS Monocytes 0.44 K/cmm [facility] ABS Eosinophils 0.07 K/cmm [facility] ABS Basophils 0.02 K/cmm [facility] Type of Diff: Automated [facility] 01/20/2006 9:50 EDT 01/20/2006 10:18 EDT Lyubov Whaley MD PACKAGES & DNA PROBE ORDERABLES Performing Organization Address City/State/[facility] Co de Phone Number [facility] [address] [address] documented in this encounter Visit Diagnoses Not on filedocumented in this encounter Additional Health Concerns Infection Onset Date Last Indicated Resolved Time COVID-19 03/11/2021 03/11/2021 03/31/2021 22:1 5 EST documented as of this encounter
--- OUTSIDE RECORDS SUMMARY | 2023-11-03 15:58 | XMS_ITS | Encounter Summary ---
Author Organization [facility] Address [address] [place] [address] Care Team Providers Care Manager Integrated Name Role Phone Mao Hale MD Primary Care Provider [phone] Encounter Details Date Type Department Care Team (Latest Contact Info) Description 03/10/2017 10:36 EST - 03/10/2017 23:59 [facility] Encounter [address] [address] Unknown, Provider, Discharge Disposition: Home or Self [...] Code Departure Means Destination Home or Self [facility] documented in this encounter Plan of Treatment Not on file documented as of this encounter Visit Diagnoses Not on filedocumented in this encounter Care Teams Manager Integrated Relationship Specialty Start Date End Date Mao Hale MD [address] [place] [address] PCP - General 07/28/11 03/26/17 documented as of this encounter
--- OUTSIDE RECORDS SUMMARY | 2023-11-03 15:58 | XMS_ITS | Encounter Summary ---
Author Organization [facility] Address [address] [place] [address] Care Team Providers Care Canvas Products Sales Representative Name Role Phone Mao Hale MD Primary Care Provider [phone] Encounter Details Date Type Department Care Team (Late st Contact Info) Description 12/08/2016 Results Only [facility] [phone] [address] Social History Tobacco Use Types Packs/Day Years [...] Procedure Name Priority Date/Time Associated Diagnosis Comments PAP TEST- RESULT ONLY Routine 12/08/2016 0:00 EDT documented in this encounter Results * PAP TEST- RESULT ONLY (12/08/2016 0:00 EDT) Pathology Report: CYTOPATHOLOGY REPORT Reports generated via electronic interface contain original data; however they are lacking the format of the original report. Caution should be taken when reading/interpret ing unformatted reports. Name: ? YOUNG, HASMUKH H ? Accession #: ? [id number] : ? 1995 (Age: 21) ??F ?Collect Date: ? 12/08/2016 Location: ? [facility] ? Receive Date: ? 12/09/2016 Provider: ?NONA DUTTA CNM Copy to: ?[facility] ? Specimen/Source: ?Pap Test, Cervix, ThinPrep Imaging System with manual evaluation Last Menstrual Period: ? 10/14/16 Menstrual/Pregnan cy Status: ? Previous Gynecologic Pathology: ? 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 SPECIMEN ADEQUACY ? Unsatisfactory for Evaluation, - insufficient numbers of squamous epithelial cells (less than 10% of expected cellularity) - sample preparation compromised by excessive inflammation - obscuring contamination, possibly lubricant GENERAL CATEGORIZATION ? Specimen processed and examined, but unsatisfactory for evaluation of epithelial abnormality. ??Recommend repeat Pap test in 2-4 months as stated in ASCCP's 2012 Updated Consensus Guidelines. ? Document reviewed and electronically signed by: ? KRYSTAL Lea(ASCP)(IAC) ? Report Date: ??12/17/2016 12:57 End of Report [facility] 12/08/2016 12/09/2016 Nona Dutta CNM PATHOLOGY ORDERABLES [facility] [address] [place] [address] documented in this encounter Visit Diagnoses Not on filedocumented in this encounter Care Teams Can[employer] Products Sales Representative Relationship Specialty Start Date End Date Mao Hale MD [address] [place] [address] PCP - General 07/28/11 03/26/17 documented as of this encounter
--- OUTSIDE RECORDS SUMMARY | 2023-11-03 15:58 | XMS_ITS | Encounter Summary ---
Author Organization [facility] Address [address] [place] [address] Care Team Providers Care Rate And Cost Analyst Name Role Phone Kev Jeniffer H SUELLEN Primary Care Provider [phone] Encounter Details Date Type Department Care Team (Late st Contact Info) Description 04/20/2023 Lab Requisition [facility] Laboratory Medicine - [address] [address] Outr Resulting Lab, Provider Social History Tobacco [...] Procedure Name Priority Date/Time Associated Diagnosis Comments RUBELLA IGG ANTIBODY Routine 04/20/2023 10:45 EST VARICELLA IGG ANTIBODY Routine 04/20/2023 10:45 EST documented in this encounter Results * VARICELLA IGG ANTIBODY (04/20/2023 10:45 EST) Varicella IgG Ab Positive See Note 04/21/2023 10:03 EST [facility] Comment:Presence of detectab le Varicella Zoster virus IgG antibodies. Blood VENOUS BLOOD / Unknown 04/20/2023 10:45 EST 04/20/2023 16:52 EST Provider Outr Resulting Lab IMMUNOLOGY A ND SEROLOGY ORDERABLES Performing Organization Address [facility] Co de Phone Number [facility] [address] [place] [address] * RUBELLA IGG ANTIBODY (04/20/2023 10:45 EST) Rubella IgG Ab Positive See Note 04/21/2023 10:07 EST [facility] Comment:Positive for IgG ant ibodies to Rubella virus. Blood VENOUS BLOOD / Unknown 04/20/2023 10:45 EST 04/20/2023 16:52 EST Provider Outr Resulting Lab CHEMISTRY & BLOOD GAS ORDERABLES Performing Organization Address [facility] Co de Phone Number [facility] [address] [place] [address] documented in this encounter Visit Diagnoses Not on filedocumented in this encounter Care Teams Rate And Cost Analyst Relationship Specialty Start Date End Date Jeniffer Angulo APRN [address] [place] [address] PCP - General 03/27/17 documented as of this encounter
--- OUTSIDE RECORDS SUMMARY | 2023-11-03 15:58 | XMS_ITS | Encounter Summary ---
Author Organization [facility] Address [address] [place] [address] Care Team Providers Care Director Advanced Name Role Phone Mao Hale MD Primary Care Provider [phone] Encounter Details Date Type Department Care Team (Late st Contact Info) Description 09/23/2016 Results Only Imaging [facility] [phone] Unknown, Provider, Social History Tobacco Use Types Packs/Day Years [...] as of this encounter Plan of Treatment Pending Results Name Type Priority Associated Diagnoses Date /Time OUTSIDE IMAGES - MR NEURO Imaging 09/23/2016 14:54 EDT OUTSIDE IMAGES - CT NEURO Imaging 09/23/2016 16:21 EDT documented as of this encounter Visit Diagnoses Not on filedocumented in this encounter Care Teams Director Advanced Relationship Specialty Start Date End Date Mao Hale MD [address] [place] [address] PCP - General 07/28/11 03/26/17 documented as of this encounter
--- OUTSIDE RECORDS SUMMARY | 2023-11-03 15:58 | XMS_ITS | Encounter Summary ---
Author Organization [facility] Address [address] [place] [address] Care Team Providers Care Rolling Machine Operator Name Role Phone Unavailable Primary Care Provider Unavailabl e Encounter Details Date Type Department Care Team (Late st Contact Info) Description 02/17/2006 14:34 [facility] Hospital Encounter [facility] [address] [place] [address] Lyubov Whaley MD [address] [place] [phone] Social History Tobacco Use Types Packs/Day Years Used Date Smoking Tobacco: Former Cigarettes Passive Smoke Exposure: Current Comments:1 PPD x 7 yrs Alcohol Use Standard Drinks/Week Comments Yes 0 (1 standard drink = 0.6 oz pur e alcohol) 1-2 4-5 d/wk [facility] Utilities Answer Date Recorded In the past 12 months has [employer], gas, oil, or water [employer] threatened to shut off services in your [...] Type Priority Associated Diagnoses Date /Time OUTSIDE CD - PLAIN FILM [facility] Imaging 08/12/2011 16:54 EDT OUTSIDE CD - FLUORO BODY Imaging 08/19/2011 10:48 EDT OUTSIDE CD - MRI [facility] Imaging 07/29 10:48 EDT Scheduled Orders Name Type Priority Associated Diagnoses Orde r Schedule OUTSIDE CD - PLAIN FILM MSK Imaging For medications that can be administered at any time during the hospitalization for visit such as immunizations. for 1 Occurrences starting 08/12/2011 OUTSIDE CD - FLUORO BODY Imaging For medications that can be administered at any time during the hospitalization for visit such as immunizations. for 1 Occurrences starting 08/19/2011 OUTSIDE CD - MRI MSK Imaging For medications that can be administered at any time during the hospitalization for visit such as immunizations. for 1 Occurrences starting 08/19/2011 documented as of this encounter Visit Diagnoses Not on filedocumented in this encounter Additional Health Concerns Infection Onset Date Last Indicated Resolved Time COVID-19 03/11/2021 03/11/2021 03/31/2021 22:1 5 EST documented as of this encounter
--- OUTSIDE RECORDS SUMMARY | 2023-11-03 15:58 | XMS_ITS | Encounter Summary ---
Author Organization [facility] Address [address] [place] [address] Care Team Providers Care Aircraft Engine Mechanic Name Role Phone Unavailable Primary Care Provider Unavailabl e Encounter Details Date Type Department Care Team (Late st Contact Info) Description 02/05/2006 9:06 EST - 02/05/2006 11:59 EST Hospital Encounter [facility] [address] [place] [address] Lyubov Whaley MD [address] [place] [phone] Discharge Disposition: Auto Discharge Social History Tobacco Use Types Packs/Day Years Used Date Smoking Tobacco: Never Assessed Sex and Gender Information Value Date Recorded Sex Assigned at Not on file Gender Identity Not on file Sexual Orientation Not on file documented as of this encounter Discharge Disposition Disposition Code Departure Means Destination Auto Discharge documented in this encounter Plan of Treatment Not on file documented as of this encounter Visit Diagnoses Not on filedocumented in this encounter
--- OUTSIDE RECORDS SUMMARY | 2023-11-03 15:58 | XMS_ITS | Encounter Summary ---
Author Organization [facility] Address [address] [place] [address] Care Team Providers Care Shell Shop Supervisor Name Role Phone Mao Hale MD Primary Care Provider Encounter Details Date Type Department Care Team (Late st Contact Info) Description 08/19/2011 Abstract [facility] Sports Medicine Program - [address] [address] Wm Nj MD [address] [place] [phone] Social History Tobacco Use Types Packs/Day Years [...] on filedocumented in this encounter Care Teams Shell Shop Supervisor Relationship Specialty Start Date End Date Mao Hale MD [address] [place], [place] [id number] PCP - General 07/28/11 03/26/17 documented as of this encounter
--- OUTSIDE RECORDS SUMMARY | 2023-11-03 15:58 | XMS_ITS | Encounter Summary ---
Author Organization [facility] Address [address] [place] [address] Care Team Providers Care Care Asst Name Role Phone Farhad Anguloyn Cordell KEN Primary Care Provider [phone] Encounter Details Date Type Department Care Team (Late st Contact Info) Description 09/28/2020 Lab Requisition [facility] Pathology & Laboratory Medicine - [address] [address] Outr Resulting Lab, Provider Social History Tobacco [...] Procedure Name Priority Date/Time Associated Diagnosis Comments ZZCOVID-19 TEST [facility] PCR Today 09/27/2020 17:30 EDT COVID-19 TESTING Routine 09/27/2020 17:3 0 EDT documented in this encounter Results * COVID-19 TEST [facility] PCR (09/27/2020 17:30 EDT) Swab ENTIRE NASOPHARYNX / Unknown 09/27/2020 17:30 EDT 09/28/2020 16:13 EDT Provider Outr Resulting Lab MICROBIOLOGY - GENERAL ORDERABLES [facility] [address] [place] [address] * COVID-19 TESTING (09/27/2020 17:30 EDT) COVID-19 rt-PCR Result Negative Negative 09/29/2020 14:05 EDT [facility] Comment: This test has not been FDA cleared or approved. This test has been authorized by FDA under an EUA for use by authorized laboratories. This test has been authorized only for detection of nucleic acid from 2019-nCoV, not for any other viruses or pathogens. This test is only authorized for the duration of the declaration that circumstances exist justifying the authorization of emergency use of in vitro diagnostic tests for detection and/or diagnosis of 2019-nCoV under section 564(b)(1) of Act, 21 U.S.C ?? 360bbb-3(b) (1), unless the authorization is terminated or revoked sooner. Negative results do not preclude 2019-nCoV infection and should not be used as the sole basis for treatment or other patient management decisions. Negative results must be combined with clinical observations, patient history, and epidemiological information. This test was developed and its performance characteristics determined by [facility]. It has not been cleared or approved by the US Food and Drug Administration. FDA does not require this test to go through premarket FDA review. This test is used for clinical purposes. It should not be regarded as investigational or for research. This laboratory is certified under the Clinical Laboratory Improvement Amendments (CLIA) as qualified to perform high complexity clinical laboratory testing. This test is based on the [facility] COVID-19 Emergency Use Authorization (EUA) assay, with minor modification as defined by the FDA Performed on the Blazeo 7 Flex RT-PCR System. Performing Lab [facility] Lab 09/29/2020 14:05 EDT [facility] Swab 09/27/2020 17:3 0 EDT 09/28/2020 16:13 EDT Provider Outr Resulting Lab MICROBIOLOGY - GENERAL ORDERABLES [facility] [address] [place] [address] documented in this encounter Visit Diagnoses Not on filedocumented in this encounter Additional Health Concerns Infection Onset Date Last Indicated Resolved Time COVID-19 03/11/2021 03/11/2021 03/31/2021 22:1 5 EST documented as of this encounter Care Teams Care Asst Relationship Specialty Start Date End Date Jeniffer Angulo APRN [address] [place] [address] PCP - General 03/27/17 documented as of this encounter
--- OUTSIDE RECORDS SUMMARY | 2023-11-03 15:58 | XMS_ITS | Encounter Summary ---
Author Organization [facility] Address [address] [place] [address] Care Team Providers Care Cutter Barrel Drum Name Role Phone Mao Hale MD Primary Care Provider [phone] Encounter Details Date Type Department Care Team (Late st Contact Info) Description 03/10/2017 Results Only [facility] [phone] [address] Social History Tobacco Use Types Packs/Day Years [...] Diagnosis Comments PAP TEST- RESULT ONLY Routine 03/10/2017 0:00 EST documented in this encounter Results * PAP TEST- RESULT ONLY (03/10/2017 0:00 EST) Pathology Report: CYTOPATHOLOGY REPORT Reports generated via electronic interface contain original data; however they are lacking the format of the original report. Caution should be taken when reading/interpreti ng unformatted reports. Name: ? HASMUKH YOUNG ? Accession #: ? [id number] ? : ? 1995 (Age: 21) ??F ?Collect Date: ? 03/10/2017 ? Location: ? [facility] ? Receive Date: ? 03/11/2017 ? Provider: SRIRAM PIERRE CNM Copy to: ? Final Report SPECIMEN ADEQUACY ? Satisfactory for Evaluation - transformation zone component present GENERAL CATEGORIZATION ? Epithelial Cell Abnormality INTERPRETATION ? Squamous Cell Abnormality - Atypical squamous cells, undetermined significance (ASC-US). EDUCATIONAL NOTES/RECOMMENDATI ONS ? An additional slide was prepared and evaluated. Menstrual/Pregnanc y Status: ?? Specimen/Source: ??Pap Test, Cervix, ThinPrep Imaging System with manual evaluation Document reviewed and electronically signed by: ? TIFF PHOENIX MD ? Report ??Date: 03/25/2017 16:22 HPV with Pap Test ? Date Ordered: ? 03/25/2017 ? Status: ?? Signed Out ?Date Complete: ? 03/26/2017 ? By: ??System Interface ? Date Reported: ? 03/26/2017 ? Interpretation RESULT: Positive for high or intermediate risk HPV. E6 OR E7 mRNA from one or more types of HPV types 16,18,31, 33,35,39,45,51,52, 56,58,59,66, and 68 is detected by manager of maintenance mediated amplification. High and intermediate risk HPV types are associated with most squamous intraepithelial lesions and cervical cancers. Comments Document reviewed and electronically signed by: ? System Interface ? Report date: 03/26/2017 By the signature above, the attending physician certifies that he/she has personally conducted a gross and/or microscopic examination of the described specimens and rendered or confirmed the above diagnosis. End of Report [facility] 03/10/2017 03/11/2017 Sriram Pierre [facility] PATHOLOGY ORDERABLES [facility] [address] [place] [address] documented in this encounter Visit Diagnoses Not on filedocumented in this encounter Care Teams Cutter Barrel Drum Relationship Specialty Start Date End Date Mao Hale MD [address] [place] [address] PCP - General 07/28/11 03/26/17 documented as of this encounter
--- OUTSIDE RECORDS SUMMARY | 2023-11-03 15:58 | XMS_ITS | Encounter Summary ---
Author Organization [facility] Address [address] [place] [address] Care Team Providers Care Viscosity Tester Name Role Phone Penelope Regalado SUELLEN Primary Care Provider [phone] Encounter Details Date Type Department Care Team ([facility] st Contact Info) Description 06/26/2017 Results Only [facility] [phone] Louise Garcia MD [address] [place] [phone] Social History Tobacco Use Types Packs/Day Years [...] Procedure Name Priority Date/Time Associated Diagnosis Comments SURGICAL PATHOLOGY Routine 06/26/2017 14 :16 EDT documented in this encounter Results * SURGICAL PATHOLOGY (06/26/2017 14:16 EDT) Pathology Report: SURGICAL PATHOLOGY REPORT Reports generated via electronic interface contain original data; however they are lacking the format of the original report. Caution should be taken when reading/interpret ing unformatted reports. Name: ? HASMUKH YOUNG ? Accession #: ? [id number] ? : ? 1995 (Age: 21) ??F ? Collect Date: ? 06/26/2017 ? Location: ? [facility] ? Receive Date: ? 06/30/2017 ? Provider: LOUISE GRACIA MD Copy to: PENELOPE REGALADO PHONE MANAGER ? Final Pathologic Diagnosis: PLACENTA, 3RD TRIMESTER, MANNER OF DELIVERY UNKNOWN: - Castle placenta (244 g, less than 5th percentile for gestational age). - Membranous web surrounding base of umbilical cord. - Acute chorioamnionitis, negative for funisitis. - Widespread acute intervillositis, negative for acute villitis. - Decidual vasculopathy, rare, consistent with maternal history of severe preeclampsia. - Scattered areas of villous hypermaturation. - Parenchymal infarction (0.6 cm in greatest extent, less than 5% of overall placental volume). - Three-vessel umbilical cord. Document reviewed and electronically signed by: MAXI HELTON MD Report ??Date: 07/06/2017 14:32 By the signature above, the attending physician certifies that he/she has personally conducted a gross and/or microscopic examination of the described specimens and rendered or confirmed the above diagnosis. Specimen(s) Received: Placenta and cord Clinical History: , severe preeclampsia, EDC 07/21/17 Gross Description: ? Received in formalin labelled with proper patient identification (initials S, D) and 06.26.17 placenta 2034 is a castle placenta (13.5 x 12.2 x 2.3 cm) with attached umbilical cord (40.5 cm in length x 1.2-1.7 cm in diameter) and membranes. After the cord and membranes are removed, the circular placental disc weighs 244 g. ? The membranes are barnard-pink and translucent and insert at the disc margin. The umbilical cord is white, shiny and coiled, with three vessels, and inserts marginally, 1.3 cm from the nearest disc margin. There is a triangular membrane web (5.5 x 5.0 x 3.5 cm) connecting the surface and umbilical cord insertion. The surface is blue-mejia with arborizing vasculature that appears attenuated in the region most distal from the umbilical insertion site. The maternal surface is red-brown with intact and complete cotyledons and a scant amount of loosely attached blood clot. Sectioning reveals a dark red, spongy cut surface. There is a central, barnard-pink, solid nodule (0.6 cm in greatest dimension). ? Photograph are taken of the specimen. Senior Payroll Manager sections are submitted as follows: BLOCK BROWN 1- ??two membrane rolls 2- ??two umbilical cord cross sections (including one from webbed area) 3- ??placental disc, periphery (in region of attenuated vasculature) 4- ??placental disc, central (including 0.6 cm, barnard-pink, solid nodule) 5- ??placental disc, central 6- ??placental disc, central Dr. Peng 06/30/2017 3:40 PM End of Report [facility] 06/26/2017 14:1 6 EDT 06/30/2017 14:16 EDT Louise Garcia MD PATHOLOGY ORDERABLES [facility] [address] [place] [address] documented in this encounter Visit Diagnoses Not on filedocumented in this encounter Care Teams Viscosity Tester Relationship Specialty Start Date End Date Penelope Regalado APRN [address] [place] [address] PCP - General 03/27/17 documented as of this encounter
--- OUTSIDE RECORDS SUMMARY | 2023-11-03 15:58 | XMS_ITS | Encounter Summary ---
Author Organization [facility] Address [address] [place] [address] Care Team Providers Care Master Black Belt Name Role Phone Unavailable Primary Care Provider Unavailabl e Encounter Details Date Type Department Care Team (Late st Contact Info) Description 09/19/2005 Before [facility] Converted Visit ([place]) [facility] - [facility] conversion [address] [place] [address] Lyubov Whaley MD [address] [place] [phone] Social History Tobacco Use Types Packs/Day Years Used Date Smoking Tobacco: Never Assessed Sex and Gender Information Value Date Recorded Sex Assigned at Not on file Gender Identity Not on file Sexual Orientation Not on file documented as of this encounter Progress Notes * Lyubov Whaley MD - 03/09/2009 1254 EST September 19, 2005 Mao Hale MD [facility] [address] [place] [address] Hale: It was a pleasure to see Hasmukh Young again on September 19, 2005. Hasmukh is a 10-year-old girl with migraine headaches, who is treated with Elavil. I last saw Hasmukh almost 9 months ago. She remains on Elavil and is tolerating the medication well.Her mother and she have noticed no side effects in relation to the medication. Hasmukh does, however, does continue to have occasional migraines. They are less frequent than they were prior to starting the medication and are now occurring perhaps 2-3 timeseach month (formerly they occurred as often as 8-9 times a month). There are not many definite triggers, though Hasmukh does note that if she is outside in the heat or becomes dehydrated, she often develops a headache. For milder headaches, she will takeMotrin at a dose of 400 mg, which will work if she catches it early. Unfortunately she develops more severe headaches and some of these are associated with repeated vomiting. At these times, she finds it difficult to hold down any medication. She has taken Midrin for more severe headaches, and this has been effective, though does cause some fatigue and dizziness. Hasmukh has otherwise been well, though recently has complained of a sore throat and some abdominal discomfort and was noted to have possiblesplenic enlargement suggestive of mono. She hates to have blood drawn and thus the test was not performed. She continues to have bedwetting, which has become even more problematic, and she complaints that she has large volumes of urine on a nightly basis in bed. She has not had a fever. She has not had a rash. The remainder of systems were negative. CURRENT MEDICATIONS: 1. Elavil 50 mg nightly. 2. Midrin p.r.n. 3. Loratadine 10 mg daily. 4. Motrin p.r.n. ALLERGIES: She has no known allergies. PHYSICAL EXAMINATION: Hasmukh's weight was 45.3 kg and height 153 cm. Blood pressure was 92/58 and heart rate was 80. Her general exam remained unremarkable. On neurologic exam, she was alert and cooperative. Speech was fluent. Visual cedillo were full.Funduscopic exam revealed sharp disc margins bilaterally. Her eye movements were full and face symmetric. She has normal muscle tone throughout withgood power in all extremities. Reflexes were 2+ throughout. She performed well on [id number]-ap-[id number] testing, as well as tandem gait. IMPRESSION: Hasmukh is a 10-year-old girl with migraine headaches. The Elavil has been effective in reducing the frequency of the headaches, but she continues to have severe headaches roughly 2-3 times in a month. She did jalen total of 15 days of school last year and had many late days the morning after developing a migraine. The Midrin is effective for some of the headaches, but she has difficulty with repeated vomiting on some occasions and cannot keep it down. For thisreason, I prescribed Imitrex in the form of a nasal spray. I suggested starting at a dose of 5 mg, though she could increase to 10 mg if the 5 mg dose is not effective. This should not be used more than a few times in a month and should be reserved for the most severe headaches. Hasmukh's mother will let me know how the medication works. She will continue to take Elavil at the current dose, and I would like to see her again in 6 months. Please do not hesitate to call with questions or concerns. Sincerely, Signed by Lyubov Whaley MD 10/16/2005 13:21 Layla Lockhart MD Lyubov Whaley MD - Lyubov Whaley MD P - LBR Job ID: [id number] Document ID: [id number] cc: Mao Hale MD documented in this encounter Plan of Treatment Not on file documented as of this encounter Visit Diagnoses Not on filedocumented in this encounter
--- OUTSIDE RECORDS SUMMARY | 2023-11-03 15:58 | XMS_ITS | Encounter Summary ---
Author Organization [facility] Address [address] [place] [address] Care Team Providers Care Workers Compensation Claims Supervisor Name Role Phone Unavailable Primary Care Provider Unavailabl e Encounter Details Date Type Department Care Team (Late st Contact Info) Description 02/17/2006 Before [facility] Converted Visit ([place]) [facility] - [facility] conversion [address], [place] [address] Luz Marina Dugan MD [address] [place] [phone] Social History Tobacco Use Types Packs/Day Years Used Date Smoking Tobacco: Never Assessed Sex and Gender Information Value Date Recorded Sex Assigned at Not on file Gender Identity Not on file Sexual Orientation Not on file documented as of this encounter Consult Notes * Luz Marina Dugan MD - 04/02/2009 9084 EST CONSULTATION - 02/17/2006 Anny Walter MD [facility] [address] [place] [address] 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 Ms. Young gives the history that Hasmukh was potty-trained at about 1 for bowel and bladder, but hasnever had a dry night since then. He has been on various medications since kindergarten, and none have made any difference at all. Those have included DDAVP and imipramine. They tried an enuresis alarm back in first grade, six years ago, and that did not work at that time. Hasmukh tried imipramine earlier this year, and when he was on that, he had a weight loss of 101 pounds down to 87 pounds. He has just discontinued imipramine now. He also has migraine headaches, and has just started Imitrex in August for that. He thinks that the Imitrex is making him sleepy, but he is not really sure that it has had any effect at all on his enuresis. REVIEW OF SYSTEMS: Reveals only that there has been recurrent abdominal pain. He has had EEGs in the past because of some blackout episodes. I am not sure about the etiology of those. Hasmukh is described as a deep sleeper, however, at this time he says that he is very motivated to work hard to get on top of this enuresis. He is not sure, however, that being awakened at night wouldbe agood idea, as he tends to need a lot of sleep in order to function optimally in the daytime. PHYSICAL EXAMINATION: On physical examination, his height is 154.7 cm, weight 39.3 kilos, and his blood pressure 84/48. His HEENT examination is completely normal. His neck examination is normal, with no thyromegaly. Lungs are clear. Heart sounds are normal. Abdomen is soft and nontender. There is no palpable constipation. External genitalia are normal. Presacral area is normal. Lower extremity strength is normal. Deep tendon reflexes are normal. There is no edema. There is no rash, and no signof joint abnormality. LABORATORY: Urinalysis shows specific gravity greater than 1.030, indicating that he is able to concentrate his urine optimally. Hasmukh has a classic story for primary nocturnal enuresis. In addition, he has multiple family members on both the father's and the mother's side, who have had the same developmental issue. At this time, I would suggest that he try an enuresis alarm again, perhaps waiting until the summerwhen he has less stress to be awake and performing during the daytime. He and his mother think thatwould be a good idea. Their main concern was to make sure that there was not anything really wrongwith him. I assured themthat I did not think that there is, and that he will be able to resolve his nocturnal enuresis, just as all of his relatives have. I do think that an enuresis alarm might hurry along the process a bit. I do not think that any of the medications will havean appreciable effect, and certainly not a lasting one, even if the medication gave him one or two dry nights while he is on it. Enuresis alarms have been shown to work well in 75% of children, with most of them remaining dry after the alarm is discontinued. My experience is that they work much better once children area bit older, and able to cooperate, and are motivated to change. I think that Hasmukh is at this point at this time in his life, and I hope that he will have success with this next summer. I would be happy to answer any other questions, should they arise, and I appreciate the opportunityto have participated in his care. Sincerely, Signed by Luz Marina Dugan MD 03/13/2006 15:29 Marielle [facility]ugan [facility] [id number] P Guillot, MD Luz Marina Dugan MD Division of Pediatric Nephrology [phone] - Shiloh Dugan MD A - o1 Job ID: [id number] Document ID: [id number] cc: MD Lyubov Cordoba MD documented in this encounter Plan of Treatment Not on file documented as of this encounter Visit Diagnoses Not on filedocumented in this encounter
--- OUTSIDE RECORDS SUMMARY | 2023-11-03 15:58 | XMS_ITS | Encounter Summary ---
Author Organization [facility] Address [address] [place] [address] Care Team Providers Care Special Education Tutor Name Role Phone Jeniffer Angulo SUELLEN Primary Care Provider [phone] Reason for Visit * Reason Onset Date Comments Labs Only 05/22/2020 Encounter Details Date Type Department Care Team (Late st Contact Info) Description 05/22/2020 Telephone [facility] Women's Services - [facility] [address] [place], [place] [id number] Lauren Mott RN Labs Only Social History Tobacco Use Types Packs/Day Years [...] encounter Miscellaneous Notes * Telephone Encounter - Lauren Palm RN - 05/22/2020 6059 EST Called [facility] lab as we have no record of this patient being seen at this clinic. Therefore we would be unable to send any other labs. The lab confirmed their was also no record on their end for the patient being seen/needing labs drawn. * Telephone Encounter - Lauren Palm RN - 05/22/2020 1546 EST Message left on STAFF ATTORNEY VM in regards to patients upcoming labs and would like an order faxed documented in this encounter Plan of Treatment Not on file documented as of this encounter Visit Diagnoses Not on filedocumented in this encounter Care Teams Special Education Tutor Relationship Specialty Start Date End Date Jeniffer Angulo APRN [address] [place] [address] PCP - General 03/27/17 documented as of this encounter
--- OUTSIDE RECORDS SUMMARY | 2023-11-03 15:58 | XMS_ITS | Encounter Summary ---
Author Organization [facility] Address [address] [place] [address] Care Team Providers Care Environmental Project Manager Name Role Phone Unavailable Primary Care Provider Unavailabl e Encounter Details Date Type Department Care Team (Late st Contact Info) Description 11/19/2009 Results Only [facility] Laboratory Services - [facility] [place] [place] [address], [place] [id number] Trung Che FNP [address] [place], [place] [address] Social History Tobacco Use Types Packs/Day Years Used Date Smoking Tobacco: Never Assessed Sex and Gender Information Value Date Recorded Sex Assigned at Not on file Gender Identity Not on file Sexual Orientation Not on file documented as of this encounter Plan of Treatment Not on file documented as of this encounter Procedures Procedure Name Priority Date/Time Associated Diagnosis Comments CYTOPATHOLOGY Routine 11/19/2009 0:00 EDT documented in this encounter Results * CYTOPATHOLOGY (11/19/2009 0:00 EDT) Pathology Report: CYTOPATHOLOGY REPORT ? Reports generated via electronic interface contain original data; ? however they are lacking the format of the original report. ? Caution should be taken when reading/interpreti ng unformatted reports. ? Name: ? HASMUKH YOUNG ? Accession #: ? [id number] ? : ? 1995 (Age: 14) ??F ?Collect Date: ? 11/19/2009 ? Location: ? [facility] ? Receive Date: ? 11/21/2009 ? Provider: ?TRUNG CANO ? Copy to: ? Specimen/Source: ?Pap Test, Endocervix, ThinPrep Imaging System with ? manual evaluation ? Last Menstrual Period: ? present ? Other: ? HPVA - HPV testing requested if ASC-US on the current ThinPrep Pap test. ? SPECIMEN ADEQUACY ? Satisfactory for Evaluation ? - transformation zone component present ? GENERAL CATEGORIZATION ? Negative for Intraepithelial Lesion or Malignancy ? Document reviewed and electronically signed by: ? Jozef Carbajal, CT(ASCP) ? Report Date: ??11/26/2009 13:38 ? End of Report ? ROLF RAMÍREZ 11/19/2009 11/21/2009 Trung Che LOGGING CONTRACTOR PATHOLOGY ORDERABLES ROLF RAMÍREZ [address] [place] [address] documented in this encounter Visit Diagnoses Not on filedocumented in this encounter
--- OUTSIDE RECORDS SUMMARY | 2023-11-03 15:58 | XMS_ITS | Encounter Summary ---
Author Organization [facility] Address [address] [place] [address] Care Team Providers Care Milanese Knitting Machine Operator Name Role Phone Mao Hale MD Primary Care Provider [phone] Reason for Visit * Reason Onset Date Comments Appointment Related 12/24/2016 Appointment Related 12/31/2016 Encounter Details Date Type Department Care Team (Late st Contact Info) Description 12/24/2016 Telephone [facility] Neurology - [address] [id number] Tobias Lr MD PhD 1 [facility] [address] [place] [address] Appointment Related; Appointment Related Social History Tobacco Use Types Packs/Day Years [...] encounter Miscellaneous Notes * Telephone Encounter - Brittani Seo - 01/15/2017 1426 EDT LM for Hasmukh that we have closed her referral and sent New Patient Questionnaire to HIM to be scanned into chart. * Telephone Encounter - Brittani Seo - 01/09/2017 1007 EDT Left 3rd and final message to schedule NPV with Adeline (was a NOS on 11/26) or if she wants us to close the referral * Telephone Encounter - Brittani Seo - 12/31/2016 1116 EDT LMOM to schedule NPV with Adeline (was a NOS on 11/26) or if she wants us to close the referral * Telephone Encounter - Brittani Seo - 12/24/2016 1306 EDT LMOM to schedule NPV with Adeline (was a NOS on 11/26) or if she wants us to close the referral documented in this encounter Plan of Treatment Not on file documented as of this encounter Visit Diagnoses Not on filedocumented in this encounter Care Teams Milanese Knitting Machine Operator Relationship Specialty Start Date End Date Mao Hale MD [address] [place] [address] PCP - General 07/28/11 03/26/17 documented as of this encounter
--- OUTSIDE RECORDS SUMMARY | 2023-11-03 15:58 | XMS_ITS | Encounter Summary ---
Author Organization [facility] Address [address] [place] [address] Care Team Providers Care Garment Sewer Hand Name Role Phone Farhad Angulojenna Landa SUELLEN Primary Care Provider [phone] Encounter Details Date Type Department Care Team (Late st Contact Info) Description 04/20/2023 Lab Requisition [facility] Pathology & Laboratory Medicine - [address] [address] Outr Resulting Lab, Provider Social History Tobacco [...] Procedure Name Priority Date/Time Associated Diagnosis Comments CHLAMYDIA/N. GONORRHOEAE AMPLIFIED NUCLEIC ACID Routine 04/20/2023 10:00 EST documented in this encounter Results * CHLAMYDIA/N. GONORRHOEAE AMPLIFIED RNA (04/20/2023 10:00 EST) Neisseria gonorrhoeae Result Negative Negative 04/21/2023 13:20 EST [facility] Chlamydia trachomatis Result Negative Negative 04/21/2023 13:20 EST [facility] Swab ENDOCERVICAL STRUCTURE / Unknown 04/20/2023 10:00 EST 04/20/2023 17:17 EST Provider Outr Resulting Lab MICROBIOLOGY - GENERAL ORDERABLES Performing Organization Address City/State/[facility] Co de Phone Number [facility] [address] [place] [address] documented in this encounter Visit Diagnoses Not on filedocumented in this encounter Care Teams Garment Sewer Hand Relationship Specialty Start Date End Date Jeniffer Angulo APRN [address] [place] [address] PCP - General 03/27/17 documented as of this encounter
--- OUTSIDE RECORDS SUMMARY | 2023-11-03 15:58 | XMS_ITS | Encounter Summary ---
Author Organization [facility] Address [address] [place] [address] Care Team Providers Care Graduate Rn Name Role Phone Farhad Angulojenna Landa SUELLEN Primary Care Provider [phone] Encounter Details Date Type Department Care Team (Late st Contact Info) Description 10/26/2019 Lab Requisition [facility] Pathology & Laboratory Medicine - [address] [address] Outr Resulting Lab, Provider Social History Tobacco [...] Procedure Name Priority Date/Time Associated Diagnosis Comments CELIAC DISEASE PANEL Routine 10/25/2019 11:05 EDT documented in this encounter Results * CELIAC DISEASE PANEL (10/25/2019 11:05 EDT) Tissue Transglutaminase Antibody IGA <1.2 <4.0 U/mL 10/31/2019 12:42 EDT [facility] Comment: A negative result may be due to IgA deficiency and does not rule out celiac disease. ? Negative: ??<4.0 U/mL ? Weak Positive: ??4.0 - 10.0 U/mL ? Positive: ??>10.0 U/mL Results were obtained with the BuedaA Lite R h-tTG IgA ELIZABETH assay on the Operatix DSX. IgA 211 85 - 499 mg/dL 10/31/2019 12:42 EDT [facility] Celiac Disease Interpretation Negative Serology. Celiac disease unlikely. Approximately 10% of patients with celiac disease are seronegative. Patients who are already adhering to a gluten-free diet may also be seronegative. If celiac disease is highly clinically suspected, referral to gastroenterology for additional evaluation is recommended. 10/31/2019 12:42 EDT [facility] Blood VENOUS BLOOD / Unknown 10/25/2019 11:05 EDT 10/26/2019 15:56 EDT Provider Outr Resulting Lab IMMUNOLOGY A ND SEROLOGY ORDERABLES [facility] [address] [place] [address] documented in this encounter Visit Diagnoses Not on filedocumented in this encounter Additional Health Concerns Infection Onset Date Last Indicated Resolved Time COVID-19 03/11/2021 03/11/2021 03/31/2021 22:1 5 EST documented as of this encounter Care Teams Graduate Rn Relationship Specialty Start Date End Date Jeniffer Angulo APRN [address] [place] [address] PCP - General 03/27/17 documented as of this encounter
--- OUTSIDE RECORDS SUMMARY | 2023-11-03 15:58 | XMS_ITS | Encounter Summary ---
Author Organization [facility] Address [address] [place] [address] Care Team Providers Care Dry Roaster Name Role Phone Mao Hale MD Primary Care Provider Encounter Details Date Type Department Care Team (Late st Contact Info) Description 08/07/2011 Orders Only [facility] Sports Medicine Program - [address] [address] Ricardo Gomez MD [address] [place] [phone] Right hip pain (Primary Dx) Social History Tobacco Use Types Packs/Day Years Used Date Smoking Tobacco: Never Assessed Sex and Gender Information Value Date Recorded Sex Assigned at Not on file Gender Identity Not on file Sexual Orientation Not on file documented as of this encounter Plan of Treatment Not on file documented as of this encounter Visit Diagnoses Diagnosis Right hip pain- Primary Pain in joint, pelvic region and thigh documented in this encounter Care Teams Dry Roaster Relationship Specialty Start Date End Date Mao Hale MD [address] [place], [place] [address] PCP - General 07/28/11 03/26/17 documented as of this encounter
--- OUTSIDE RECORDS SUMMARY | 2023-11-03 15:58 | XMS_ITS | Encounter Summary ---
Author Organization [facility] Address [address] [place] [address] Care Team Providers Care Crm Technical Lead Name Role Phone Penelope Regalado APRN Primary Care Provider [phone] Encounter Details Date Type Department Care Team (Late st Contact Info) Description 01/12/2018 Results Only [facility] [phone] Penelope Regalado, CORRECTIONS OFFICER [address] [facility] [address] [place] [address] Social History Tobacco Use Types Packs/Day Years [...] Date/Time Associated Diagnosis Comments SURGICAL PATHOLOGY Routine 01/12/2018 16 :04 EDT documented in this encounter Results * SURGICAL PATHOLOGY (01/12/2018 16:04 EDT) Pathology Report: SURGICAL PATHOLOGY REPORT Reports generated via electronic interface contain original data; however they are lacking the format of the original report. Caution should be taken when reading/interpreting unformatted reports. Name: ? HASMUKH YOUNG ? Accession #: ? [id number] ? : ? 1995 (Age: 22) ??F ? Collect Date: ? 01/12/2018 ? Location: ? [facility] ? Receive Date: ? 01/13/2018 ? Provider: PENELOPE REGALADO CORRECTIONS OFFICER Copy to: ? Final Pathologic Diagnosis: A. ? SKIN OF AHMADI, LEFT LATERAL, PUNCH BIOPSY: - Leukocytoclastic vasculitis. ??See comment. B. ? SKIN OF AHMADI, RIGHT MEDIAL, PUNCH BIOPSY: - Leukocytoclastic vasculitis. ? Comment: Both biopsies show features of leukocytoclastic vasculitis (LCV) involving the small vessels of the dermis. ??Rare larger vessels are represented and appear uninvolved by the vasculitic process. ??(Dr. Springer)/rust Microscopic Description: Both of the biopsies show similar features. ??Both consist of a small punch biopsy of skin to the deep reticular dermis. ??The epidermis is relatively unremarkable except for focal erythrocyte extravasation. ??The dermis has a patchy perivascular and interstitial infiltrate. ??The infiltrate is composed of intact neutrophils in addition to a small number of lymphomononuclear cells. There is leukocytoclastic debris. ??Several of the vessels show fibrinoid mural change and there is erythrocyte extravasation. ??(Dr. Springer)/rust Document reviewed and electronically signed by: GRAHAM SPRINGER MD Report ??Date: 01/14/2018 22:03 By the signature above, the attending physician certifies that he/she has personally conducted a gross and/or microscopic examination of the described specimens and rendered or confirmed the above diagnosis. Specimen(s) Received: Punch biopsy 3.0 mm A. ??Left lateral ahmadi B. ??Right medial ahmadi Clinical History: Rash x2 wks, purpura, spreading, responsive to oral steroids oncy, returned after completion, no systemic sx, neg inflammatory markers, nml PLT Gross Description: A. ?Received in formalin labelled with proper patient identification (initials S, D) and left lateral ahmadi biopsy is a 0.3 cm barnard-brown circular skin excised to a depth of 0.3 cm. Entirely submitted in A1. B. ?Received in formalin labelled with proper patient identification (initials S, D) and right medial ahmadi biopsy is a 0.3 cm barnard-brown circular skin excised to a depth of 0.3 cm. Entirely submitted in B1. ABEL Barakat (ASCP) 01/13/2018 5:17 PM End of Report [facility] 01/12/2018 16:0 4 EDT 01/13/2018 16:04 EDT Penelope Regalado APRN PATHOLOGY ORDERAB LES [facility] [address] [place] [address] documented in this encounter Visit Diagnoses Not on filedocumented in this encounter Care Teams Crm Technical Lead Relationship Specialty Start Date End Date Penelope Regalado APRN [address] [place] [address] PCP - General 03/27/17 documented as of this encounter
--- OUTSIDE RECORDS SUMMARY | 2023-11-03 15:58 | XMS_ITS | Encounter Summary ---
Author Organization [facility] Address [address] [place] [address] Care Team Providers Care Parts Cataloger Name Role Phone Unavailable Primary Care Provider Unavailabl e Encounter Details Date Type Department Care Team (Late st Contact Info) Description 02/04/2006 Before [facility]ISM Converted Visit (Maple) [facility] - Maple conversion [address] [place] [address] Ulises Davis MD PhD [address] [facility]. [address] [place] [id number] Social History Tobacco Use Types Packs/Day Years Used Date Smoking Tobacco: Never Assessed Sex and Gender Information Value Date Recorded Sex Assigned at Not on file Gender Identity Not on file Sexual Orientation Not on file documented as of this encounter Procedure Notes * Ulises Davis MD - 04/05/2009 1325 EST CLINICAL NEUROPHYSIOLOGY LABORATORY 24 HOUR AMBULATORY EEG REPORT DATE OF SERVICE: 02/05/2006 STUDY NUMBER: [id number] REFERRING PROVIDER: Celeste Whaley M.D. CLINICAL HISTORY A 10-year-old patient with black out episodes occurring over the last month and a history of migraines. MEDICATIONS Amitriptyline and Imitrex. TECHNICAL DESCRIPTION A 16-channel [employer] ambulatory digital EEG system is used to record 16 channels of EEG and ECG. Electrodes are placed according to the International 10-20 system and, unless specified below, contacts F7-8, T3-4, FP1-2, F3-4, C3- 4, and CZ CPZ and Pz are the recording references. An event button isalso available for the patient or caregiver to denote an episode of clinical interest. The study period is approximately 24 hours. The entire record is screened for ictal and interictal abnormalities. All events of clinical interest are reviewed in detail as well as segments from each stateof wakefulness and sleep. FINDINGS 1. study began at 11:37 in the morning on the 04 of February and ended at 9:57 in the morning on the 05 of February. 2. There are no target events described in the log. The electroencephalogram is normal during the waking portion of the recording. There is high voltage artifact when the patient goes to bed at nightand thatpersists until the patient awakens and is out of bed in the morning. This is suspected of being an electric blanket or other electrical 60 Hz device associated with the bed. Features of slow wave sleep can be discerned through the artifact but it is not suitable for subtle reading. IMPRESSION This 24-hour electroencephalogram has no target events and no abnormal electrical activity of cerebral origin. The technical problem during sleep is as noted above. Signed by Ulises Davis MD,PHD 02/12/2006 09:04 Pradeep Davis MD,PHDABPN Certified in NeurologyElmira Psychiatric Centeran Board Clinical NeurophysiologyJokirstin Davis MD,PHD Ulises Davis MD,PHD ABPN Certified in Neurology [place] Board Clinical Neurophysiology - Ulises Davis MD,PHD A - mj Job ID: [id number] Document ID: [id number] cc: * Ulises Davis MD - 04/05/2009 1325 EST CLINICAL NEUROPHYSIOLOGY LABORATORY ELECTROENCEPHALOGRAM REPORT DATE OF SERVICE: 02/04/2006 STUDY NUMBER: [id number] REFERRING PROVIDER: Lyubov Whaley MD CLINICAL HISTORY A 10-year-old patient with episodes beginning a month ago of blacking out without loss of consciousness. The patient has a history of migraines. MEDICATIONS Amitriptyline and Imitrex. TECHNICAL DESCRIPTION International 10-20 system of electrode placement and a CPZ reference electrode. The study is performed under the supervision of a registered EEG Technologists. No pain assessment for this procedure is necessary. A minimum of 22 minutes is recorded. Anterior temporal leads are utilized to enhance coverage in those areas. FINDINGS 1. When the eyes are open background activity includes some 5-7 cycle per second activity scatteredabout at up to 40 uV. With eye closure a posterior dominant rhythm is seen at 11 cycles per second at 80 uV. At times this is much better sustained and regulated on the left and higher in voltage on the left than on the right. At other times it may be briefly symmetrical The 5-7 cycle per second activity is scattered about at 40 uV. 2. Photic stimulation - intermittent photic stimulation at flash frequencies of 1 to 60 per second results in no abnormalities and no asymmetries of driving. 3. Hyperventilation -3 minutes of good cooperation with hyperventilation results in a build up of high voltage 3 cycle per second activity without sharp waves or spike components. This is up to 750 uV in amplitude. IMPRESSION This is a normal electroencephalogram except for the asymmetry of alpha activity. The relationship of that to the patients clinical complaints unless there is associated intermittent ischemia of the occipital lobes is unclear. Incidentally, the EKG had an occasional ectopic beat. Signed by Ulises Davis MD,PHD 02/12/2006 09:03 Pradeep Davis MD,PHDABPN Certified in NeurologyBulgarian Board Clinical NeurophysiologyUlises Davis MD,PHD Ulises Davis MD,PHD ABPN Certified in Neurology [place] Board Clinical Neurophysiology - Ulises Davis MD,PHD A - mj Job ID: [id number] Document ID: [id number] cc: Lyubov Whaley MD documented in this encounter Plan of Treatment Not on file documented as of this encounter Visit Diagnoses Not on filedocumented in this encounter
--- OUTSIDE RECORDS SUMMARY | 2023-11-03 15:58 | XMS_ITS | Encounter Summary ---
Author Organization [facility] Address [address] [place] [address] Care Team Providers Care Sensor Technician Name Role Phone Jeniffer Angulo APRN Primary Care Provider [phone] Encounter Details Date Type Department Care Team (Late st Contact Info) Description 04/20/2023 Lab Requisition [facility] Pathology & Laboratory Medicine - [facility] [address] [place] [address] Outr Resulting Lab, Provider Social History Tobacco [...] Procedure Name Priority Date/Time Associated Diagnosis Comments HIV 1/2 ANTIGEN AND ANTIBODY, 4TH GENERATION Routine 04/20/2023 10:45 EST documented in this encounter Results * HIV 1/2 ANTIGEN AND ANTIBODY, 4TH GENERATION (04/20/2023 10:45 EST) HIV 1 and 2 Antibody/p24 Antigen, 4th Generation Negative Negative 04/20/2023 18:42 EST [facility] Comment:If acute HIV-1 infec tion is suspected in a high risk patient, submit plasma specimen for HIV-1 RNA quantitation test. Blood VENOUS BLOOD / Unknown 04/20/2023 10:45 EST 04/20/2023 16:52 EST Narrative [facility] - 04/20/2023 18:42 EST Fourth Generation assay performed on the [employer] XPT. Provider Outr Resulting Lab IMMUNOLOGY A ND SEROLOGY ORDERABLES [facility] [address] [place] [address] documented in this encounter Visit Diagnoses Not on filedocumented in this encounter Care Teams Sensor Technician Relationship Specialty Start Date End Date Jeniffer Angulo APRN [address] [place] [address] PCP - General 03/27/17 documented as of this encounter
--- OUTSIDE RECORDS SUMMARY | 2023-11-03 15:58 | XMS_ITS | Encounter Summary ---
Author Organization [facility] Address [address] [place] [address] Care Team Providers Care Global Engineering Manager Name Role Phone Unavailable Primary Care Provider Unavailabl e Encounter Details Date Type Department Care Team (Late st Contact Info) Description 09/19/2005 11:34 EDT Hospital Encounter [facility] [address] [place] [address] Lyubov Whaley MD [address] [place] [address] Social History Tobacco Use Types Packs/Day Years Used Date Smoking Tobacco: Former Cigarettes Passive Smoke Exposure: Current Comments:1 PPD x 7 yrs Alcohol Use Standard Drinks/Week Comments Yes 0 (1 standard drink = 0.6 oz pur e alcohol) 1-2 4-5 d/wk [facility] Utilities Answer Date Recorded In the past 12 months has e [employer], gas, oil, or water [employer] threatened to shut off services in your [...] any time in the past 12 m [facility], were you homeless or living in a long-term (including now)? No 09/04/2023 Interpersonal Safety Answer [...]
--- OUTSIDE RECORDS SUMMARY | 2023-11-03 15:58 | XMS_ITS | Encounter Summary ---
Author Organization [facility] Address [address] [place] [address] Care Team Providers Care Log Handling Equipment Operator Name Role Phone Mao Hale MD Primary Care Provider [phone] Reason for Visit * Reason Comments Hip Pain right hip Encounter Details Date Type Department Care Team (Late st Contact Info) Description 08/12/2011 15:15 EDT Office Visit [facility] - [address] [address] Unknown, Provider, Ricardo Gomez MD [address] [place] [phone] Acetabular labrum tear (Primary Dx); Right hip pain; Hip impingement syndrome Discharge Disposition: Auto Discharge Social History Tobacco [...] - Inhaled Oxygen Concentration - - Weight 61.2 kg (135 lb) 08/12/2011 1528 EDT Height 170.2 cm (5' 7) 08/12/2011 1528 EDT Body Mass Index 21.14 08/12/2011 1528 EDT Body Mass Index Percentile 48.03% 08/12/2011 152 8 EDT Growth Chart: [facility] (Girls, 2- 20 Years) documented in this encounter Discharge Disposition Disposition Code Departure Means Destination Auto Discharge documented in this encounter Progress Notes * Ricardo Gomez MD - 08/12/2011 1539 EDT Chief Complaint Patient presents with ??? Hip Pain right hip Hasmukh Young is seen in consultation at the request of Moa Hale MD for evaluation of bilateral hip pain. SUBJECTIVE: Hasmukh Young is a 16 y.o. female who presents to the office with about 2 year history of insidious onset bilateral hip pain, right worse than left. 80% of the pain in the right and 20% of the pain inthe left. Her left hip actually just started hurting a few months ago. She can't recall an injury. Her pain is anterior and in the groin. She gets catching and popping. Sometimes locks and gives out. Locking has occurred once a week during basketball season. Very painful. 3 out of 10 pain. 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 She plays basketball. No spring sport. She has treated with crutches, PT, chiropractor and rest. Nothing has helped. PT hasn't worked. She has had an MR arthrogram and the report has been sent but no images are available. She states that there were some complications with the arthrogram portion and they weren't sure of the diagnosis. There was suggestion of iliopsoas bursitis but she was told that she would need to rest for 6 weeksafter they injected her iliopsoas bursa so she wanted a second opinion. She is here with her mother who helps with the history. PMH: depression and migraines PSH: wrist surgery x 2 ([facility]) at [facility] Current Outpatient Prescriptions Medication Sig Dispense Refill ??? nortriptyline (PAMELOR) 50 mg capsule Take 50 mg by mouth daily. ??? UNABLE TO FIND 25 mg daily. Med Name: Sertralin ??? UNABLE TO FIND daily. Med Name: BirthControl- Avaine Allergies Allergen Reactions ??? Other - See Comments Itching, Swelling and Rash Shrimp/ STRYAFOAM Social history: she is a senior in high school, nonsmoker ROS: A 12 system comprehensive review of systems was documented in the intake form all of which is negative except migraines, depression. OBJECTIVE: Ht 170.2 cm (67) Wt 61.236 kg (135 lb) BMI 21.14 kg/m2 General: awake, alert, NAD, pleasant Examination [...] left. Joint spaces well maintained. MR arthrogram report was reviewed. Concern for iliopsoas bursitis. No labral tear seen although there was a cyst noted and some concern about the contrast being extra-articular. ASSESSMENT: Bilateral hip pain. Left hip with signs of labral tear and pincer lesion. Right hip with early impingement. PLAN: We discussed treatment options for her. The CD ROM from [facility] with MRA will be sent to us for review. We decided to schedule a fluoro guided injection in the right hip for diagnostic and therapeutic purposes. If she has benefit, she may require arthroscopy with labral and rim trimming. If no benefit, would consider iliopsoas bursal injection. The patient verbalized understanding of the above and agreed with this plan. All of her questions were answered to her satisfaction today. 40 minutes of face to face time was spent with the patient, 25 minutes were spent on counseling andcoordination of care of the patient's bilateral hip pain. I would like to thank Mao Hale MD for this kind referral. I will keep you up to date on Hasmukh Young's progress. Ricardo Gomez M.D. 08/12/2011 17:01 Cc: Mao Hale MD documented in this encounter Plan of Treatment Not on file documented as of this encounter Procedures Procedure Name Priority Date/Time Associated Diagnosis Comments PORT FLUORO UP TO 1 HOUR 08/29/2011 12:00 EDT documented in this encounter Results * PORT FLUORO UP TO 1 HOUR (08/29/2011 12:00 EDT) Anatomical Region Laterality Modality Other 08/29/2011 12:0 0 EDT Narrative 08/29/2011 12:00 EDT Non Reportable Exam Procedure Note 08/29/2011 Non Reportable Exam Ricardo Gomez MD IMG FLUOROSCOPY OR DERABLES documented in this encounter Visit Diagnoses Diagnosis Acetabular labrum tear- Primary Sprain and strain of other specified sites of hip and thigh Right hip pain Pain in joint, pelvic region and thigh Hip impingement syndrome Enthesopathy of hip region documented in this encounter Historical Medications * This list may reflect changes made after this encounter. Medication Sig Dispensed Refills Start Date End Date UNABLE TO FIND daily. Med Name: BirthControl- Avaine 09/04/2023 UNABLE TO FIND 25 mg daily. Med Name: Sertralin 09/04/2023 nortriptyline (PAMELOR) 50 mg capsule Take 50 mg by mouth daily. 09/04/2023 added in this encounter Care Teams Log Handling Equipment Operator Relationship Specialty Start Date End Date Mao Hale MD [address] [place] [address] PCP - General 07/28/11 03/26/17 documented as of this encounter
--- OUTSIDE RECORDS SUMMARY | 2023-11-03 15:58 | XMS_ITS | Encounter Summary ---
Author Organization [facility] Address [address] [place] [address] Care Team Providers Care Cupola Mechanic Name Role Phone Farhad Angulojenna Landa SUELLEN Primary Care Provider [phone] Encounter Details Date Type Department Care Team (Late st Contact Info) Description 09/28/2020 Lab Requisition [facility] Pathology & Laboratory Medicine - [address] [address] Outr Resulting Lab, Provider Social History Tobacco [...] Procedure Name Priority Date/Time Associated Diagnosis Comments VARICELLA ZOSTER VIRUS MOLECULAR DETECTION, PCR Routine 09/27/2020 17:30 EDT documented in this encounter Results * VARICELLA ZOSTER VIRUS MOLECULAR DETECTION, PCR (09/27/2020 17:30 EDT) VARICELLA ZOSTER VIRUS MOLECULAR DETECTION, PCR Negative Negative 09/29/2020 13:46 EDT [facility] Comment:This test was develo ped and its performance characteristics determined by [facility]. It has not been cleared or approved by the US Food and Drug Administration. FDA does not require this test to go through premarket FDA review. This test is used for clinical purposes. It should not be regarded as investigational or research. This laboratory is certified under the Clinical Laboratory Improvement Amendments (CLIA) as qualified to perform high complexity clinical laboratory testing. Swab ENTIRE [place] REGION / Unknown 09/27/2020 17:30 EDT 09/28/2020 19:17 EDT Provider Outr Resulting Lab MICROBIOLOGY - GENERAL ORDERABLES [facility] [address] [place] [address] documented in this encounter Visit Diagnoses Not on filedocumented in this encounter Additional Health Concerns Infection Onset Date Last Indicated Resolved Time COVID-19 03/11/2021 03/11/2021 03/31/2021 22:1 5 EST documented as of this encounter Care Teams Cupola Mechanic Relationship Specialty Start Date End Date Jeniffer Angulo APRN [address] [place] [address] PCP - General 03/27/17 documented as of this encounter
--- OUTSIDE RECORDS SUMMARY | 2023-11-03 15:58 | XMS_ITS | Encounter Summary ---
Author Organization [facility] Address [address] [place] [address] Care Team Providers Care Application Manager Name Role Phone Farhad Anguloyn Cordell KEN Primary Care Provider [phone] Encounter Details Date Type Department Care Team (Late st Contact Info) Description 03/11/2021 Lab Requisition [facility] Pathology & Laboratory Medicine - [address] [address] Outr Resulting Lab, Provider Social History Tobacco [...] Comments ZZCOVID-19 TEST [facility] PCR Today 03/11/2021 10:15 EST COVID-19 TESTING Routine 03/11/2021 10:1 5 EST documented in this encounter Results * COVID-19 TEST [facility] PCR (03/11/2021 10:15 EST) Swab 03/11/2021 10:1 5 EST 03/11/2021 22:36 EST Provider Outr Resulting Lab MICROBIOLOGY - GENERAL ORDERABLES Performing Organization Address [facility] Co de Phone Number [facility] [address] [place] [address] * (ABNORMAL) COVID-19 TESTING (03/11/2021 10:15 EST) COVID-19 rt-PCR Result Positive(AA ) Negative 03/12/2021 14:17 EST [facility] Comment: This test has not [...] the authorization is terminated or revoked sooner. Performed on the Bunk[employer] Mode [place] Fusion instrument Performing Lab [place] [facility] 03/12/2021 14:17 EST [facility] Swab 03/11/2021 10:1 5 EST 03/11/2021 22:36 EST Provider Outr Resulting Lab MICROBIOLOGY - GENERAL ORDERABLES Performing Organization Address [facility] Co de Phone Number [facility] [address] [place] [address] documented in this encounter Visit Diagnoses Not on filedocumented in this encounter Additional Health Concerns Infection Onset Date Last Indicated Resolved Time COVID-19 03/11/2021 03/11/2021 03/31/2021 22:1 5 EST documented as of this encounter Care Teams Application Manager Relationship Specialty Start Date End Date Jeniffer Angulo APRN [address] [place] [address] PCP - General 12/29/17 documented as of this encounter
--- OUTSIDE RECORDS SUMMARY | 2023-11-03 15:58 | XMS_ITS | Encounter Summary ---
Author Organization [facility] Address [address] [place] [address] Care Team Providers Care Picker/Puller Name Role Phone Unavailable Primary Care Provider Unavailabl e Encounter Details Date Type Department Care Team (Late st Contact Info) Description 11/29/2004 Before PRISM Converted Visit (Maple) [facility] - Maple conversion [address] [place] [address] Lyubov Whaley MD [address] [place] [id number] Social History Tobacco Use Types Packs/Day Years Used Date Smoking Tobacco: Never Assessed Sex and Gender Information Value Date Recorded Sex Assigned at Not on file Gender Identity Not on file Sexual Orientation Not on file documented as of this encounter Progress Notes * Lyubov Whaley MD - 05/30/2009 0301 EST DIVISION OF NEUROLOGY PROGRESS/FOLLOWUP NOTE - Mao Jones MD [address] [place] [address] Jones, It was a pleasure to see Hasmukh Young once again on November 29, 2004. As you know, she is an 9-year-old girl with migraine headaches who is treated with Elavil. I last saw Hasmukh in June of 2003. At that time she was having seven to eight severe headaches each month. She had been treated with numerous medications without good effect. I had restarted her on Elavil, of which she is currently taking 40 mg daily. She responded very well to the medication initially at the lower dose of 30 mg nightly. In August of 2003 she had an increase in headaches, thus thedose was increased to 40 mg nightly. Her family says she has done very well. She has had very rare headaches recently. She believes the headaches are occurring no more than once every two months. Both she and her family have identified several triggers that lead to headaches including crying, missing meals, smelling a bad smell such as something burning, processedmeats and becoming overtired. Typically, if Hasmukh develops a headache she takes 1 or 2 Motrin tablets at the onset, and this works quite well to alleviate the headache pain. Hasmukh is entering the sixth grade, is an excellent student. She had missed a good deal of school in the fourth grade due to the headaches, but last year missed only five days. Her parents are very pleased with this. She is quite active in sports, in particular basketball. MEDICATIONS: Elavil 40 mg nightly. ALLERGIES: She has no known allergies. PHYSICAL EXAMINATION: Hasmukh's weight was 87.5 pounds. Her neck was supple and chest clear to auscultation. Abdomen was soft without hepatosplenomegaly. Skin exam unremarkable. On neurologic exam, she was alert and cooperative. Her speech was fluent. Her visual cedillo were full. Her funduscopic exam was normal. She had normal muscle tone throughout with good power in all extremities. She had no pronator drift. Reflexes were symmetric at 2+ throughout. She performed well in [id number] testing as well as tandem gait. The remainder of the exam wasn negative. IMPRESSION: Hasmukh is an 9-year-old girl with a history of migraine headaches. The headaches are well controlled on Elavil at a dose of 40 mg nightly. She should continue at this dose, and I agree with her taking the 1-2 tablets of ibuprofen at the onset of headache. Her family will contact me if there is any change in the headache frequency. We discussed the possibility of trying to taper the medication just prior to the end of the school year, given she is so able to identify triggers at this point and may be able to manage the headaches without preventative medication. It was a pleasure to see Hasmukh. We will check an EKG today, and I would like to see her back in July, prior to the end of the school year. Please do not hesitate to call with questions or concerns. Sincerely, Signed by Lyubov Whaley MD 12/12/2004 10:37 Layla Lockhart MD Lyubov Whaley MD - Lyubov Whaley MD P - MS Job ID: [id number] Document ID: [id number] cc: Mao Jones MD documented in this encounter Plan of Treatment Not on file documented as of this encounter Visit Diagnoses Not on filedocumented in this encounter
--- OUTSIDE RECORDS SUMMARY | 2023-11-03 15:58 | XMS_ITS | Encounter Summary ---
Author Organization [facility] Address [address] [place] [address] Care Team Providers Care Driveway Sealer Name Role Phone Mao Hale MD Primary Care Provider [phone] Encounter Details Date Type Department Care Team (Latest Contact Info) Description 06/12/2016 10:41 EDT - 06/12/2016 23:59 EDT Hospital Encounter [address] [address] Unknown, Provider, Discharge Disposition: Home or Self [...] Refills Start Date End Date nortriptyline (PAMELOR) 50 mg capsule Take 50 mg by mouth daily. 09/04/2023 UNABLE TO FIND 25 mg daily. Med Name: Sertralin 09/04/2023 UNABLE TO FIND daily. Med Name: BirthControl- Avaine 09/04/2023 documented as of this encounter Discharge Disposition Disposition Code Departure Means Destination Home or Self Snf documented in this encounter Plan of Treatment Not on file documented as of this encounter Visit Diagnoses Not on filedocumented in this encounter Care Teams Driveway Sealer Relationship Specialty Start Date End Date Mao Hale MD [address] [place] [address] PCP - General 07/28/11 03/26/17 documented as of this encounter
--- OUTSIDE RECORDS SUMMARY | 2023-11-03 15:58 | XMS_ITS | Encounter Summary ---
Author Organization [facility] Address [address] [place] [address] Care Team Providers Care Crisis Therapist Name Role Phone Farhad Angulojenna Landa SUELLEN Primary Care Provider [phone] Encounter Details Date Type Department Care Team (Late st Contact Info) Description 08/15/2023 Lab Requisition [facility] Pathology & Laboratory Medicine - [address] [address] Outr Resulting Lab, Provider Social History Tobacco [...] Procedure Name Priority Date/Time Associated Diagnosis Comments CHLORIDE, URINE 24HR Routine 08/14/2023 4:33 EDT documented in this encounter Results * (ABNORMAL) CHLORIDE, URINE 24HR (08/14/2023 4:33 EDT) Chloride, Urine 77 See Note mmol/L 08/15/2023 21:55 EDT [facility] Comment: NOTE: Reference range not established Chloride, Urine 24 hr 824(H) 110 - 250 mmol/24hrs 08/15/2023 21:55 EDT [facility] Urine Volume 10,700 mL 08/15/2023 21:55 EDT [facility] Urine Collection Period 24.0 Hours 08/15/2023 21:55 EDT [facility] Urine 24 HOUR URINE SPECIMEN / Unknown 08/14/2023 4:33 EDT 08/15/2023 21:41 EDT Provider Outr Resulting Lab URINALYSIS O RDERABLES [facility] [address] [place], [place] [id number] documented in this encounter Visit Diagnoses Not on filedocumented in this encounter Care Teams Crisis Therapist Relationship Specialty Start Date End Date Jeniffer Angulo APRN [address] [place] [address] PCP - General 03/27/17 documented as of this encounter
--- OUTSIDE RECORDS SUMMARY | 2023-11-03 15:58 | XMS_ITS | Encounter Summary ---
Author Organization [facility] Address [address] [place] [address] Care Team Providers Care Commercial Loan Collection Officer Name Role Phone Unavailable Primary Care Provider Unavailabl e Encounter Details Date Type Department Care Team (Late st Contact Info) Description 02/04/2006 9:59 EST - 02/04/2006 11:59 EST Hospital Encounter [facility] [address] [place] [address] Lyubov Whaley MD [address] [place] [phone] Discharge Disposition: Auto Discharge Social History Tobacco [...]
--- OUTSIDE RECORDS SUMMARY | 2023-11-03 15:58 | XMS_ITS | Encounter Summary ---
Author Organization [facility] Address [address] [place] [address] Care Team Providers Care Eyeglass Lens Grinder Name Role Phone Kev Jeniffer H SUELLEN Primary Care Provider [phone] Encounter Details Date Type Department Care Team (Late st Contact Info) Description 04/20/2023 Lab Requisition [facility] Pathology & Laboratory Medicine - [address] [address] Outr Resulting Lab, Provider Social History Tobacco [...] Priority Date/Time Associated Diagnosis Comments HEPATITIS C AB W REFLEX TO HCV RNA BY PCR Routine 04/20/2023 10:45 EST HEPATITIS B SURFACE ANTIGEN Routine 04/20/2023 10:45 EST documented in this encounter Results * HEPATITIS B SURFACE ANTIGEN (04/20/2023 10:45 EST) Hep B Surface Ag Negative Negative 04/20/2023 18:09 EST [facility] Blood VENOUS BLOOD / Unknown 04/20/2023 10:45 EST 04/20/2023 16:52 EST Provider Outr Resulting Lab CHEMISTRY & BLOOD GAS ORDERABLES Performing Organization Address [facility] Co de Phone Number [facility] [address] [place] [address] * HEPATITIS C AB W REFLEX TO HCV RNA BY PCR (04/20/2023 10:45 EST) Hep C Antibody Negative Negative 04/20/2023 18:39 EST [facility] Blood VENOUS BLOOD / Unknown 04/20/2023 10:45 EST 04/20/2023 16:52 EST Provider Outr Resulting Lab CHEMISTRY & BLOOD GAS ORDERABLES Performing Organization Address [facility] de Phone Number [facility] [address] [place] [address] documented in this encounter Visit Diagnoses Not on filedocumented in this encounter Care Teams Eyeglass Lens Grinder Relationship Specialty Start Date End Date Jeniffer Angulo APRN [address] [place] [address] PCP - General 03/27/17 documented as of this encounter
--- OUTSIDE RECORDS SUMMARY | 2023-11-03 15:58 | XMS_ITS | Encounter Summary ---
Author Organization [facility] Address [address] [place] [address] Care Team Providers Care Commissioning Specialist Name Role Phone Jeniffer Angulo APRN Primary Care Provider [phone] Encounter Details Date Type Department Care Team (Late st Contact Info) Description 04/21/2023 Lab Requisition [facility] Pathology & Laboratory Medicine - [address] [address] [address] [place], [place] [address] Encounter for other general examination Social History Tobacco Use Types Packs/Day Years [...] Name Priority Date/Time Associated Diagnosis Comments PAP TEST Today 04/20/2023 10:00 EST Encounter for other general examination documented in this encounter Results * PAP TEST (04/20/2023 10:00 EST) Specimens A. Cervix and/or Endocervix , ThinPrep Imaging System with Manual Evaluation 05/01/2023 15:47 [facility] Specimen Adequacy Satisfactory for Evaluation - transformation zone component absent 05/01/2023 15:47 EST [facility] General Categorization Negative for intraepithelial lesion or malignancy 05/01/2023 15:47 [facility] Attestation . 05/01/2023 15:47 EST [facility] at 1547 Clinical History See below 05/01/19 15:47 EST [facility] Performing Lab [facility] 05/01/2023 15:47 [facility] Scanned Images 05/01/2023 15:47 [facility] Pap Test CERVIX UTERI STRUCTURE / Unknown 04/20/2023 10:00 EST 04/21/2023 9:22 EST Jes Fong [facility] PATHOLOGY [facility] [address] [place] [address] documented in this encounter Visit Diagnoses Diagnosis Encounter for other general examination documented in this encounter Care Teams Commissioning Specialist Relationship Specialty Start Date End Date Jeniffer Angulo APRN [address] [place] [address] PCP - General 03/27/17 documented as of this encounter
--- OUTSIDE RECORDS SUMMARY | 2023-11-03 15:58 | XMS_ITS | Encounter Summary ---
Author Organization [facility] Address [address] [place] [address] Care Team Providers Care Manager Video Games Name Role Phone Mao Hale MD Primary Care Provider [phone] Encounter Details Date Type Department Care Team (Late st Contact Info) Description 06/12/2016 Results Only [facility] [phone] Penelope Regalado, SUPPLIER QUALITY ENGINEER [address] [facility] [address] [place] [address] Social History Tobacco Use Types Packs/Day Years [...] Diagnosis Comments PAP TEST- RESULT ONLY Routine 06/12/2016 0:00 EDT documented in this encounter Results * PAP TEST- RESULT ONLY (06/12/2016 0:00 EDT) Pathology Report: CYTOPATHOLOGY REPORT Reports generated via electronic interface contain original data; however they are lacking the format of the original report. Caution should be taken when reading/interpreti ng unformatted reports. Name: ? HASMUKH YOUNG ? Accession #: ? [id number] : ? 1995 (Age: 20) ??F ?Collect Date: ? 06/12/2016 Location: ? [facility] ? Receive Date: ? 06/16/2016 Provider: ?PENELOPE REGALADO SUPPLIER QUALITY ENGINEER Copy to: ? Specimen/Source: ?Pap Test, Cervix/Endocervix, ThinPrep Imaging System with manual evaluation Last Menstrual Period: ? 05/29/16 Hormonal/Contracep tive Status: ? None Treatment History: ? None ? SPECIMEN ADEQUACY ? Satisfactory for Evaluation - transformation zone component present GENERAL CATEGORIZATION ? Epithelial Cell Abnormality INTERPRETATION ? Squamous Cell Abnormality - Low grade squamous intraepithelial lesion (LSIL). Shift in charissa present suggestive of bacterial vaginosis. EDUCATIONAL NOTES/RECOMMENDATI ONS ? [facility] recommends following ASCCP's 2012 Updated Consensus Guidelines for the Management of Abnormal Cervical Cancer Screening Tests and Cancer Precursors (JLGTD, 2013; 17(5):S1-S27). ??Consensus guidelines are available online at www.asccp.org. ? Document reviewed and electronically signed by: ? ROSSY MATUTE MD ? Report Date: ??06/19/2016 12:38 End of Report [facility] 06/12/2016 06/16/2016 Penelope Regalado SUPPLIER QUALITY ENGINEER PATHOLOGY ORDERAB LES [facility] [address] [place] [address] documented in this encounter Visit Diagnoses Not on filedocumented in this encounter Care Teams Manager Video Games Relationship Specialty Start Date End Date Mao Hale MD [address] [place] [address] PCP - General 07/28/11 03/26/17 documented as of this encounter
--- OUTSIDE RECORDS SUMMARY | 2023-11-03 15:58 | XMS_ITS | Encounter Summary ---
Author Organization [facility] Address [address] [place] [address] Care Team Providers Care Ski Topper Name Role Phone Mao Hale MD Primary Care Provider [phone] Reason for Visit * Reason Comments Neurologic Problem Referred by Dr Isabella Curtis at [facility] for post concussion syndrome with vision changes. Smeared, blurred, and shadowed vision both eyes since hitting head on a shelf then passing out and hitting head again on 04/01/16. VA has improved slightly. Pt denies diplopia. Pt had CT results were negative and that pt had a concussion Occasional dull aches both eyes (4/10) Occasional flashes both eyes. No floaters. Denies eye surgeries/injuries. KHALIDA was May [address] Kemp. Headache Patient states she o nly gets headaches when she does not wear her glasses. CAMPBELL' are in eyes and above right eye near brow. No headaches when wearing them. Anxiety Patient developed an xiety after having concussion in Mar. * Consult (Routine) - Closed Specialty Diagnoses / Procedures Referred By Taiwo martinez Referred To Contact Ophthalmology Isabella Curtis MD [facility] [place] [address] [place] [address] [facility] Ophthalmology [address] [place] [address] Referral ID Status Reason Start Date Expiration Date Visits Re quested Visits Authorized [id number] Closed 1 1 Encounter Details Date Type Department Care Team (Late st Contact Info) Description 09/23/2016 13:45 EDT Office Visit [facility] Ophthalmology - [facility] [address] [place] [address] Shiva Ordoñez MD [address] [facility], [address] [place] [address] Social History Tobacco Use Types Packs/Day Years [...] as of this encounter Progress Notes * Shiva Ordoñez MD - 09/23/2016 7755 EDT [facility] NEURO-OPHTHALMOLOGY CONSULTATION - September 23, 2016 Patient: Hasmukh Young : [address] Curtis, Thank you for requesting Neuro-Ophthalmological consultation on Ms. Young because of the history ofconcussion and blurry vision. I appreciate the notes you sent in advance that provided an introduction of her medical problems. This is a 21 year-old, right-handed, woman, who was evaluated by you after concussion on March. 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 There was no prolonged period of loss of consciousness, but the patient reported feeling out of it. She was apparently seen in the emergency department where a CT scan of the head was reported to be normal and she was discharged home; subsequent MRI (obtained at [facility]) on May 02, 2016 was also normal. Since that time the patient reports at the [facility] with symptoms of headache and vision changes. She de scribes her vision as smeared, or blurred, with shadowed vision in both eyes since her head injury. She was seen by Dr Esquivel (telemedicine physician) in May and was given glasses with bifocal lenses, possible prism and/or a filter for glare; she is unsure how much these have helped. She reports that since her injury her vision has improved slightly. The patient does have light sensitivity. She deniesfrank diplopia. There is an occasional dull ache behind both eyes; typically 4/10. She has had occasional flashes in both eyes, but denies floaters. Her headaches have improved, at present she reports headache only when she is not wearing her glasses. Typically, these are around the eyes and more of ten above right eye near the brow. In addition, the patient developed anxiety and panic attacks after her concussion. Other than as described above, the review of systems was otherwise negative. The ocular history is otherwise significant for an unclear history of vision loss of vision in lower right hand corner of her right eye, possibly related to glaucoma. She has worn glasses since and early age, but had been out of glasses on a regular basis until her concussion. The medical history includes; broken wrist; depression; urinary tract infections; migraines; panic attacks; bipolar affective disorder; tachycardia; and celiac disease. Her surgical history that includes wrist surgery. The social history includes daily tobacco use, as well as moderate alchol and regular marijuana use. Medication were reviewed as documented in the electronic health record to include: aripiprazole, hydroxyzine, lithium, lorazepam, nortriptyline, ondansetron, propranolol, sertraline, and oral contraceptive. The patient is allergic to codeine. The family history includes cataract in her maternal grandfather and maternal grandmother; dementiain her maternal grandmother; migraines in her father and mother. There is no other known neurologicor ophthalmologic disease in the family. The Neuro-ophthalmic examination revealed the patient to be alert, communicative and cooperative for testing. Visual acuities with glasses were: 20/20 in the right eye; 20/20 in the left eye. Color vision (Ishihara) testing showed no dyschromatopsia. Amsler grid testing showed doubling in the righteye that resolved with pinhole; normal on the left. The pupils were equal in size, and showed normal response to light and near. The external examination of the eyes and orbits was normal. The lids were in normal position and showed no lid lag or twitch. The examination of extraocular motility showed no strabismus, with full versions and ductions. Pursuit and saccadic function was normal. There was no nystagmus. Applanation tonometry at 1430 hours was 23 mmHg in the right eye; 23 mmHg in the left eye. Slit lamp examination revealed makeup debris in the tear film, with otherwise normal anterior segments. Automated Reyez visual avila were performed reliably with excess technical error. The right eye showed only scattered areas of decreased sensitivity (mainly superiorly), with a mean dev iation score of -1.81 dB and a foveal threshold of 38 dB. The left eye showed scattered areas of decreased sensitivity, with a mean deviation score of -1.70 and a foveal threshold of 38 dB. Dilated stereoscopic (indirect) funduscopy revealed normal optic nerves, maculae and mid peripheral retinae, with cup-disc ratios of 0.3 in the right eye; 0.4 in the left eye. Spectral domain OCT nerve fiber layer analysis showed no thinning or edema of the nerve in either eye; average nerve fiber thickness on the right of 104 microns; on the left 103 microns. There was nothinning or edema at either macula. Formulation: Ms. Young is seen for Neuro-Ophthalmologic evaluation because of the history of concussion and blurry vision. The examination shows no afferent or efferent dysfunction. The patient has normal vision for both distance and near with her current correction. I see no evidence for convergence insufficiency which can often be the cause of some difficulty when trying to read after a concussion. It may be that some of the patients difficulties relate to difficulty with accomodation, however, fortunately the patient is improving. I see no indication for further interventions or neuro-imaging at this time; the patient has had both a normal CT and MRI of her brain. I have encouraged her to continue to follow locally due to the concern for glaucoma in the past; pressures where on the high side of normal today but this was limited due to the patient's difficulty tolerating applanation. IMPRESSION: 1. Post-concussive syndrome 2. Refractive error 3. Glaucoma suspect Recommendations: 1. Continue post-concussive care 2. Routine comprehensive eye care and monitoring for glaucoma 3. Follow-up neuro-ophthalmic examination as needed Thank you for allowing me to share in the care of your patient. Please do not hesitate to contact me with any further questions or concerns. Sincerely, Shiva Ordoñez MD Diplomate, the [employer] engraving press operator Department of Ophthalmology NEURO-OPHTHALMOLOGY Cc: Patient Xochitl Jeong Gang Pusher documented in this encounter Plan of Treatment Not on file documented as of this encounter Visit Diagnoses Diagnosis Post concussive syndrome- Primary Postconcussion syndrome documented in this encounter Historical Medications * This list may reflect changes made after this encounter. Medication Sig Dispensed Refills Start Date End Date hydrOXYzine (ATARAX) 25 mg tablet Take 15 mg by mouth 3 times daily. 09/04/2023 lithium (LITHOBID) 300 mg CR tablet Take 300 mg by mouth 3 times daily. 09/04/2023 propRANolol (INDERAL) 20 mg tablet Take 30 mg by mouth 3 times daily. 09/04/2023 LORazepam (ATIVAN) 0.5 mg tablet Take 1 mg by mouth as needed for Anxiety. 09/04/2023 ONDANSETRON (ZOFRAN ODT ORAL) Take by mouth as needed. 09/04/2023 ARIPiprazole (ABILIFY) 15 mg tablet Take 15 mg by mouth daily. 09/04/2023 added in this encounter Eye Exam Visual Acuity (Snellen - Linear) Right eye Left eye Dist cc 20/20 20/20 Correction: Glasses Tonometry (Applanation, 14:30) Right eye Left eye Pressure 23 23 Tech held upper lids, difficult. Pupils Dark Light React APD Right eye 7 5 Brisk None Left eye 7 5 Brisk None Visual Avila Right eye Left eye Full Full Extraocular Movement Right eye Left eye Full, Ortho Full, Ortho Neuro/Psych Oriented x3: Yes Mood/Affect: Normal Amsler Right eye Left eye Wavy lines Normal Color Right eye Left eye Ishihara 02/07 02/07 Stereo Fly: + Circles: 10/05 Lan secs External Exam Right eye Left eye External Normal Normal Slit Lamp Exam Right eye Left eye Lids/Lashes make up make up Conjunctiva/Sclera White and quiet White and clare et Cornea Clear Clear Anterior Chamber moderate and quiet moderate and quiet Iris Round and reactive Round and beryl ctive Lens Clear Clear Vitreous Normal Normal Fundus Exam Right eye Left eye Disc Normal Normal C/D Ratio 0.3 0.4 Macula Normal Normal Vessels Normal Normal Periphery Normal Normal Wearing Rx Sphere Cylinder [place] Add Right eye -0.50 +0.50 058 +1.00 Left eye -0.25 +0.25 160 +1.00 Type: PAL Care Teams Ski Topper Relationship Specialty Start Date End Date Mao Hale MD [address] [place] [address] PCP - General 07/28/11 03/26/17 documented as of this encounter
--- OUTSIDE RECORDS SUMMARY | 2023-11-03 15:58 | XMS_ITS | Encounter Summary ---
Author Organization [facility] Address [address] [place] [address] Care Team Providers Care Magnetic Tape Winder Name Role Phone Mao Hale MD Primary Care Provider [phone] Reason for Visit * Reason Comments Hip Pain right hip Encounter Details Date Type Department Care Team (Late st Contact Info) Description 08/29/2011 11:30 EDT Office Visit [facility] Sports Medicine Program - [address] [address] Unknown, Provider, Ricardo Gomez MD [address] [place] [phone] Acetabular labrum tear; Right hip pain; Hip impingement syndrome Social History Tobacco Use Types Packs/Day Years Used Date Smoking Tobacco: Never Alcohol Use Standard Drinks/Week Comments No 0 (1 standard drink = 0.6 oz pur e alcohol) Sex and Gender Information Value Date Recorded Sex Assigned at Not on file Gender Identity Not on file Sexual Orientation Not on file documented as of this encounter Progress Notes * Ricardo Gomez MD - 08/29/2011 1247 EDT Chief Complaint Patient presents with ??? Hip Pain right hip SUBJECTIVE: Hasmukh Young is a 16 y.o. female who present for a fluoroscopic guided injection into her right hip. Patient has a diagnosis of hip impingement, acetabular labral tear and right hip pain. After review of alternative treatments and discussion of risks and benefits - benefits include painrelief, risks include bleeding, infection, damage to the surrounding tissues, failure to improve her symptoms and requirement for further injections - patient verbalized understanding, signed a consent form and wished to proceed with injection. PROCEDURE NOTE: Right intra-articular hip injection with corticosteroid The patient was brought to the fluoroscopy suite and placed in the supine position. The hip joint was localized with flouroscopy. The patient's femoral neurovascular bundle was noted. Landmarks palpated. The patient was prepped with isopropyl alcohol and draped in a sterile fashion. Under fluoroscopic guidance, a 22 gauge, 3 1/2 inch spinal needle was advanced into the hip joint. The hip was infused with 3 mL 2% lidocaine, 3 mL 0.5% marcaine and 2 mL 40 mg/mL kenalog. The patient tolerated the procedure well. Aftercare was reviewed including use of ice (20 minutes on, 20 minutes off for several cycles) and OTC meds prn. Pain sheet was given to document response. Will follow up in 4 weeks. I discussed all of the above verbally with patient, no barriers to understanding. The patient indicated understanding and agrees to the above plan. Ricardo Gomez M.D. 08/29/2011 12:48 * Rosario Fowler - 08/29/2011 1128 EDT BUPIVACAINE LOT # [id number] [facility] # [id number] EXP DATE 7 GENERAL PARTNER-ospiria XYLOCAINE LOT # [id number] [facility] # [id number] EXP DATE 8 GENERAL PARTNER-hospiris kenolog 40 mg LOT # [id number] [facility] # [id number] EXP DATE GENERAL PARTNER- hilda Fowler documented in this encounter Miscellaneous Notes * Scanned Note-Null - PHP ENGINEER, SCAN 2 - 09/02/20111956 EDT documented in this encounter Plan of Treatment Not on file documented as of this encounter Visit Diagnoses Diagnosis Acetabular labrum tear Sprain and strain of other specified sites of hip and thigh Right hip pain Pain in joint, pelvic region and thigh Hip impingement syndrome Enthesopathy of hip region documented in this encounter Care Teams Magnetic Tape Winder Relationship Specialty Start Date End Date Mao Hale MD [address] [place] [address] PCP - General 07/28/11 03/26/17 documented as of this encounter
--- OUTSIDE RECORDS SUMMARY | 2023-11-03 15:58 | XMS_ITS | Encounter Summary ---
Author Organization [facility] Address [address] [place] [address] Care Team Providers Care Bobbin Painter Name Role Phone Penelope Angulo SUELLEN Primary Care Provider [phone] Encounter Details Date Type Department Care Team (Late st Contact Info) Description 04/15/2018 Results Only [facility] [phone] Sriram Beach [address] [place] [address] Social History Tobacco Use Types Packs/Day Years [...] Diagnosis Comments PAP TEST- RESULT ONLY Routine 04/15/2018 0:00 EST documented in this encounter Results * PAP TEST- RESULT ONLY (04/15/2018 0:00 EST) Pathology Report: CYTOPATHOLOGY REPORT Reports generated via electronic interface contain original data; however they are lacking the format of the original report. Caution should be taken when reading/interpreti ng unformatted reports. Name: ? HASMUKH YOUNG ? Accession #: ? [id number] : ? 1995 (Age: 22) ??F ?Collect Date: ? 04/15/2018 Location: ? [facility] ? Receive Date: ? 04/19/2018 Provider: ?SRIRAM HOOKSM Copy to: ?PENELOPE ANGULO BILINGUAL STUDENT TUTOR ? Specimen/Source: ?Pap Test, Endocervix, ThinPrep Imaging System with manual evaluation Last Menstrual Period: ? 02/17/18 Menstrual/Pregnanc y Status: ? Previous Gynecologic Pathology: ? ASC-US: 02/2017 Infection History: ? Pos for HPV: 02/2017 ? SPECIMEN ADEQUACY ? Satisfactory for Evaluation - transformation zone component present GENERAL CATEGORIZATION ? Negative for Intraepithelial Lesion or Malignancy ? Document reviewed and electronically signed by: ? KRYSTAL Meyers(ASCP) ? Report Date: ??04/22/2018 12:19 End of Report [facility] 04/15/2018 04/19/2018 Sriram Beach CNM PATHOLOGY ORDERABLES [facility] [address] [place] [address] documented in this encounter Visit Diagnoses Not on filedocumented in this encounter Care Teams Bobbin Painter Relationship Specialty Start Date End Date Penelope Angulo, BILINGUAL STUDENT TUTOR [address] [place] [address] PCP - General 03/27/17 documented as of this encounter
== END 2023-11-03 15:53 | disposition home or self-care (01) ==
LOC: LBO 15:53
PROVIDERS: PCP Nurse Practitioner Family; Visit Provider Advanced Practice Midwife
DX: Z39.1 Encounter for care and examination of lactating mother (principal); O14.95 Unspecified pre-eclampsia, complicating the puerperium; Z34.90 Encounter for supervision of normal pregnancy, unspecified, unspecified trimester; N89.8 Other specified noninflammatory disorders of vagina
CPT/HCPCS: 36415; 80053; 85027; 84550; 87480; 87510; 87660

== ENCOUNTER 2023-11-16 14:31 | Outpatient (REF) | payer MEDICAID, SELFPAY | END 2023-11-16 14:32 | disposition home or self-care (01) | LOC: LBN 14:31 | PROVIDERS: PCP Nurse Practitioner Family; Visit Provider Advanced Practice Midwife | DX: N89.8 Other specified noninflammatory disorders of vagina (principal) | CPT/HCPCS: 87480; 87510; 87660 ==

== ENCOUNTER 2024-01-23 13:43 | Outpatient (REF) | payer MEDICAID, SELFPAY ==
[2024-01-23 19:19] LABS: COVID-19 PCR Negative (Negative); Influenza A PCR Negative (Negative); Influenza B PCR Negative (Negative); RSV PCR Negative (Negative)
[2024-01-23 19:22] LABS: Source Nasopharynx
== END 2024-01-23 13:44 | disposition home or self-care (01) ==
LOC: LBN 13:43
PROVIDERS: PCP Nurse Practitioner Family; Visit Provider Nurse Practitioner Family
DX: R09.81 Nasal congestion (principal); R50.9 Fever, unspecified; R05.9 Cough, unspecified; Z20.828 Contact with and (suspected) exposure to other viral communicable diseases; J02.9 Acute pharyngitis, unspecified; J18.9 Pneumonia, unspecified organism
CPT/HCPCS: 87637

== ENCOUNTER 2024-08-06 11:01 | Emergency (ER) | payer MEDICAID, SELFPAY ==
[2024-08-06] VITALS (7 sets, daily range): BP systolic 120–143; BP diastolic 83–104; PULSE 80–98; RESP 16–20; TEMP 36.5–36.8; O2SAT 99–100
--- NOTE | 2024-08-06 11:09 | ED.GENADUL_ITS ---
Discharge Plan Disposition Patient Disposition: Home Discharge Details Clinical Impression: Cholelithiasis, Right upper quadrant abdominal pain Primary Care Provider: Jeniffer Angulo ED Provider: Que Cabezas Home Meds and New Rx's Prescriptions: Continued acetaminophen [Tylenol] 325 MG tablet 1,000 mg PO PRN Discharge Instructions Additional Instructions: You are seen in the emergency department for your abdominal pain. You are found to have gallstones. As we discussed if you develop fevers chills cannot eat or drink as well as of nausea or vomiting or have any other concerns please return to the emergency department. Otherwise please stick with a clear diet. Please follow-up with the general surgery team. For your pain please take medications as follows: 1. Take acetaminophen (Tylenol), 1,000 mg (two 500 mg tabs) every 6 hours [2. Take ibuprofen (Advil), 200 mg every 6 hours.] HPI General Date/Time Provider Initiated Documentation: 08/06/24 11:09 . HPI Narrative: MDM This is an uncomfortable appearing afebrile and not tachycardic 29-year-old female with right upper quadrant tenderness trace pericholecystic fluid concerning for possibility of acute cholecystitis. Patient will undergo CT scan and lab work given no formal radiology ultrasound available today. No pain or proportion to suggest necrotizing soft tissue infection. Mild right lower quadrant tenderness there is certainly possibility patient could have appendicitis. Patient has had diarrhea and has an elevated BMI so diverticulitis is on the differential though less likely given the patient's age. No dysuria or frequency to suggest UTI. No history of nephrolithiasis to suggest ureterolithiasis. No chest pain to suggest ACS nor vomiting. No shortness of breath to suggest PE. Furthermore patient is PERC negative so I did not send D-dimer. No rash to abdomen to suggest zoster. No falls no shortness of breath to suggest pneumothorax. No fevers no shortness of breath to suggest referred pain from pneumonia. Occasional bloody stools though no ongoing hematochezia to suggest GI bleed. Will obtain CBC. 3:08 PM CBC lacks anemia thrombocytopenia and leukocytosis. Comprehensive metabolic panel reassuring. Normal lipase. Patient had persistent right upper quadrant pain and a reassuring CT scan. In the setting of her persistent symptoms patient was evaluated by Dr. Young of general surgery. Patient was offered hospitalization for observation and monitoring. I advised her that she should monitor her temperature at home stick with a bland diet. We also discussed that if she develop fevers worsening pain cannot eat or drink or if she had any other concerns that she should return immediately to the emergency department. She understood her return indications and was discharged with empiric trial of expectant outpatient management. HPI The patient presents to the emergency room for evaluation of abdominal pain. She reports experiencing abdominal pain, which was initially generalized but has since localized to the right side. The onset of this pain was sudden, occurring this morning, and has progressively worsened. She describes the pain as a burning sensation in the upper abdomen and crampy in the lower abdomen, which she attributes to her bowel movements. She has not consumed any food since last night. She has not experienced any trauma to the abdomen. She has not experienced any similar pain in the past. She has a history of irritable bowel syndrome (IBS) but reports that the current pain is more severe than previous episodes. She has a history of . She also experienced a fever last night, which she attributes to an upper respiratory infection circulating in her household, but the fever had subsided by this morning. She reports no current cough or difficulty breathing. She has been experiencing frequent bowel movements but reports no episodes of vomiting. She reports feeling nauseous but does not feel like vomiting. She reports no dysuria or history of nephrolithiasis. She has not experienced any thromboembolic events in her lower extremities or pulmonary system. She took Tylenol and ibuprofen this morning for a mild headache, as she has a history of migraines. Exam General: Well-appearing in no acute distress speaking in complete sentences. Head: Normocephalic, atraumatic. Eye: Extraocular eye movements intact. No conjunctival injection. No scleral icterus. Ear, nose, mouth, throat: Grossly normal inspection. Normal voice, handling secretions normally. Neck: Trachea midline. Cardiovascular: Well-perfused distal extremities. Regular rate and rhythm. Respiratory: Nonlabored respiration. Clear lungs bilaterally. Gastrointestinal: Nondistended abdomen. Soft. Right upper quadrant tenderness. Positive Sanchez sign. No rebound. No guarding. Mild right lower quadrant tenderness. Musculoskeletal: No edema. Moving all 4 extremities spontaneously. Skin: Normal for age and race, grossly normal temperature and turgor. No acute rash. Neurologic: Alert and appropriate, no apparent acute deficits. Psychiatric: Mood and manner are appropriate. Grooming and personal hygiene are appropriate. Related Data Home Medications ?Medication ?Instructions ?Recorded ?Confirmed acetaminophen 325 mg tablet 1,000 mg PO PRN 06/24/17 08/06/24 (Tylenol) Allergies Allergy/AdvReac Type Severity Reaction Status Date / Time trimethobenzamide Allergy Severe dystonic Verified 08/06/24 11:08 reaction codeine Allergy Unknown Can't Verified 08/06/24 11:08 breath metoclopramide (From Reglan) AdvReac Severe Akathesia Verified 08/06/24 11:08 promethazine (From Phenergan) AdvReac Severe Agitation Verified 08/06/24 11:08 General Stated Complaint: Abd Prob BHUPENDRA: 3 Course Vital Signs Vital signs: Vital Signs Temperature 36.8 C 08/06/24 11:03 Pulse 98 H 08/06/24 11:03 Respiratory Rate 20 08/06/24 11:03 Blood Pressure 143/104 H 08/06/24 11:03 Pulse Oximetry 99 08/06/24 11:03 Temperature 36.8 C 08/06/24 11:07 Temperature Source Tympanic 08/06/24 11:07 Pulse 98 H 08/06/24 11:07 Respiratory Rate 20 08/06/24 11:07 Blood Pressure 143/104 H 08/06/24 11:07 Blood Pressure Position Sitting 08/06/24 11:07 Pulse Oximetry 99 08/06/24 11:07 Oxygen Delivery Method Room Air 08/06/24 11:07 Oxygen Flow Rate 0 08/06/24 11:07 Medical Decision Making Quality:SDOH Health Related Social Needs: No Data to Display PFSH All Active Problems (Updated 08/06/24 @ 13:57 by Que Cabezas MD) Right upper quadrant abdominal pain (Acute) Cholelithiasis (Acute) Abdominal pain (Acute) Vaginal discharge (Acute) Preeclampsia in period (Acute) Anxiety (Chronic 12/08/16) Polyuria (Acute) Cholelithiasis during (Acute) care and examination of lactating mother (Acute) delivery (Acute) Heart murmur (Acute) Body mass index [BMI] 32.0-32.9, adult (Acute) Medical History (Updated 08/06/24 @ 13:57 by Que Cabezas MD) Pale feces Frequent bowel movements Hx of pre-eclampsia in prior , currently Required induction of labor-magnesium sulfate infusion, IUGR. History of delivery, currently Gestational hypertension without significant proteinuria during in third trimester, antepartum History of hyperemesis gravidarum Right flank pain RUQ abdominal pain Family history of diabetes mellitus in father care, subsequent Positive urine drug screen Raynauds disease History of PCOS History of panic disorder (07/15/17) Irritable bowel syndrome Family hx-breast malignancy Cervical high risk HPV (human papillomavirus) test positive (04/28/17) Surgical History (Updated 10/06/23 @ 11:37 by Nona Dutta) History of section repair of right wrist injury Family History (Updated 11/03/23 @ 11:09 by Jes Fong CNM) Mother Breast cancer Maternal Aunt Breast cancer Anxiety Maternal Aunt Breast cancer Anxiety Maternal Aunt Anxiety Maternal Grandmother Rheumatoid arthritis Maternal Grandfather Congestive heart disease Hypertension Social History Smoking/Tobacco Use Status: Former Tobacco Use Tobacco: How many years used: 5 Smoking risk assessment performed?: Yes Alcohol Intake: never Drug use: Never Substance use type: does not use Household members: children Number of Children: 2 Education Level: college current occupation: Work on [employer]. 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 Female Reproductive History Menstrual control method: condoms History History 5 Para 2 Hx # Term Pregnancies 0 Multiple births 0 Hx # Pregnancies 2 Ectopic pregnancies 0 AB induced 2 Hx Number of Living Children 2 AB spontaneous 0 Past Pregnancies Del. Date GA/Weeks # Preg Succ Route Wgt Sex Labor Lgth Anesth esia Location Prov [facility] 06/26/17 35 No vaginal 1984.467 g Male 24 hrs Nicole jong Garcia CNM 11/12/18 36 No vaginal 3175.147 g Female 5 hrs 4 min Perri Dutta CNM 09/22/23 34 No Yes 1842.719 g Male [facility] Delivery Date: 06/26/17 Last Updated by: Nona Dutta IOL preeclampsia & IUGR, required Mag., anti-hypertensive Rx for 2 mo's PP. Aly, late onset GBS @ 2-3 mo's, has autism Delivery Date: 11/12/18 Last Updated by: Nona Dutta IOL w/miso due to pre-eclampsia, no Mag needed. GBS neg. Marcela Delivery Date: 09/22/23 Last Updated by: Jes Fong CNM Preeclampsia, severe features. IOL @ [facility], emergency c/s for breech identified at 7 cms. performed under general PAWSS Have you Been Recently Intoxicated or Drunk Within the Last 30 days?: No Have you Ever Experienced Previous Episodes of Alcohol Withdrawal?: No Have you ever Experienced Withdrawal Seizures?: No Have you ever Experienced Delirium Tremens(DT)s?: No Have you ever undergone Alcohol Rehabilitation Treatment (i.e, inpt ot outpatient treatment programs)?: No Have you ever Experienced Blackouts?: No Have you ever Combined Alcohol with other Downers within the last 90 days?: No Have you ever Combined Alcohol with any other Substance of Abuse during the last 90 days?: No Positive Blood Alcohol level on Presentation? [PCS.BAL]: No Evidence of Increased Autonomic Activity (i.e. HR>120, tremor, sweating, agitation, nausea)?: No Result: 0 POCUS Exam (ED) Limited Gallbladder Exam DATE OF EXAM: 08/06/24 TIME OF EXAM: 11:32 PROVIDER THAT PERFORMED THE STUDY: Que Cabezas REASON FOR VISIT: RUQ pain VISUALIZED STRUCTURES: Gallbladder, Gallbladder wall and Pericholecystic fluid PERTINENT FINDINGS/IMPRESSION: Gallstones and Pericholecystic fluid; No thickening of the gallbladder wall INCIDENTAL FINDINGS: Cholelithiasis with trace pericholecystic fluid. No gallbladder wall thickening. Exam complete
[2024-08-06] MEDS: Omnipaque 350 MG/ML 100 ML BTL IJ (11:45)
[2024-08-06] MEDS: Normal Saline - Diluent 50 ML VIAL IJ (11:48)
[2024-08-06 11:49] LABS: Abs Immature Grans 0.02 10^3/uL (0.0-0.06); Absolute Basophil Count 0.04 10^3/uL (0.0-0.2); Absolute Eosinophil Count 0.13 10^3/uL (0.0-0.7); Absolute Monocyte Count 0.53 10^3/uL (0.1-0.8); Absolute Neutrophil Count 4.39 10^3/uL (1.2-6.7); Basophils % 0.6 %; Eosinophils % 1.8 %; HCT 41.3 % (36.0-46.0); Immature Grans % 0.3 %; Lymphocytes % 28.1 %; MCH 28.2 pg (27.0-33.0); MCHC 33.9 % (32.0-36.0); MCV 83 fL (80-95); MPV 9.3 fL (8.0-11.0); Monocytes % 7.5 %; Neutrophils % 61.7 %; Platelet Count 328 10^3/uL (130-400); RBC 4.96 10^6/uL (3.93-5.22); RDW 13.2 % (11.7-14.6); RDW-SD 40.2 fL; WBC 7.11 10^3/uL (4.4-10.8)
--- NOTE | 2024-08-06 11:58 | DI.CT_ITS ---
Exam(s) CT ABDOMEN PELVIS W EXAM: CT ABDOMEN PELVIS W CLINICAL HISTORY: Generalized abdominal pain right upper quadrant pa. TECHNIQUE: Imaging Protocol: Axial computed tomography images with coronal and sagittal reformatted images were created and reviewed CONTRAST MATERIAL: Intravenous: Omnipaque-350 100cc Oral: None COMPARISON: CT RENAL COLIC WO CONTRAST from 07/24/2017 FINDINGS: VISUALIZED LUNG BASES: No nodules nor pleural effusions evident. ABDOMEN: There is no ascites. LIVER: There are no focal hepatic lesions evident. No dilated intrahepatic ducts. GALLBLADDER/BILIARY: No obvious gallbladder pathology. CBD is not dilated. PANCREAS: No evidence of pancreatic mass nor dilatation of the pancreatic duct. SPLEEN: Spleen is not enlarged. No obvious intrasplenic lesions. Splenic and portal veins are paten t. ADRENALS: There are no significant adrenal masses. KIDNEYS:No cysts evident. No solid renal masses. No calculi nor hydronephrosis.. ABDOMINAL AORTA: Abdominal aorta is not enlarged. LYMPH NODES:There is no retroperitoneal nor paraaortic adenopathy. ABDOMINAL WALL: No evidence of significant anterior abdominal wall nor inguinal hernia. GI: There is no evidence of bowel obstruction, free air, nor abscess. PELVIS: GI: Normal appearing retrocecal appendix. No evidence of acute appendicitis.No evidence of sigmoid d iverticulitis. LYMPH NODES: There is no intrapelvic nor inguinal adenopathy. REPRODUCTIVE: Uterus unremarkable. There is a peripherally enhancing corpus luteal cyst in the left ovary measuring 2.3 x 2.0 cm. No surrounding free fluid in the adnexal regions and cul-de-sac. URINARY BLADDER: There is mild uniform thickening of the urinary bladder wall. Bladder does not appe ar under distended and therefore possibility of cystitis. There is no gas in the bladder wall nor wi thin the bladder lumen. No bladder calculi evident. No intraluminal clots in the bladder. OSSEOUS: No fractures and no significant osseous lesions. IMPRESSION: 1. No evidence of acute appendicitis nor obvious biliary pathology in this patient with right-sided a bdominal pain. Liver appears unremarkable. No ascites. 2. There is a peripherally enhancing 2.3 x 2.0 cm corpus luteal cyst in the left ovary. There is no free fluid in the pelvis. 3. There is mild uniform thickening of the urinary bladder wall which may be related to cystitis. Th ere is no gas in the bladder wall nor perivesicular streaking. No gas nor calculi evident in the uri nary bladder lumen. No hydronephrosis. RADIATION DOSE DELIVERED: 805.19mGy.cm Total DLP DATA REPOSITORY: All CT scans at this facility are submitted to the National Radiology Data Registry (NRDR) Dose Index Registry (DIR) with the [employer] (ACR). RADIATION OPTIMIZATION: All CT scans at this facility use at least one of these dose optimization te chniques: automated exposure control; mA and/or kV adjustment per patient size (includes targeted exa ms where dose is matched to clinical indication); or iterative reconstruction.
[2024-08-06 12:02] LABS: ALT 22 U/L (14-59); AST 16 U/L (15-37); Albumin 3.8 g/dL (3.4-5.0); Alkaline Phosphatase 97 U/L (46-116); Anion Gap 7.3 mmol/L (3-11); BUN 18 mg/dL (7-18); Bilirubin, Total 0.5 mg/dL (0.2-1.0); CO2 25.7 mmol/L (21.0-32.0); CREATININE 0.7 mg/dL (0.55-1.02); Calcium 9.8 mg/dL (8.5-10.1); Chloride 102 mmol/L (98-107); Estimated GFR 118.51 (mL/min/1.73m2); Glucose 84 mg/dL (74-106); Lipase 41 U/L (<78); Potassium 4.4 mmol/L (3.5-5.1); Sodium 135 mmol/L (136-145); Total Protein 7.5 g/dL (6.4-8.2)
[2024-08-06 12:05] LABS: HCG Qual (Serum) Negative
[2024-08-06] MEDS: Normal Saline 500 ML 1000 ML IV (12:05)
--- NOTE | 2024-08-06 12:21 | DI.VRAD_ITS ---
PROCEDURE INFORMATION: Exam: CT Abdomen And Pelvis With Contrast Exam date and time: 08/06/2024 11:48 AM Age: 29 years old Clinical indication: Abdominal pain; Localized; Right upper quadrant (ruq) TECHNIQUE: Imaging protocol: Computed tomography of the abdomen and pelvis with contrast. Contrast material: OMNIPAQUE 350; Contrast volume: 100 ml; Contrast route: INTRAVENOUS (IV); COMPARISON: US RENAL 08/18/2023 12:52 PM FINDINGS: Liver: Normal. No mass. Gallbladder and biliary ducts: Normal. No calcified stones. No ductal dilation. Pancreas: Normal. No ductal dilation. Spleen: Normal. No splenomegaly. Adrenal glands: Normal. No mass. Kidneys and ureters: Normal. No hydronephrosis. Stomach and bowel: Unremarkable. No obstruction. No mucosal thickening. Appendix: Appendix is unremarkable (29 series 4). Intraperitoneal space: Unremarkable. No free air. No significant fluid collection. Vasculature: Unremarkable. No abdominal aortic aneurysm. Lymph nodes: Unremarkable. No enlarged lymph nodes. Urinary bladder: Unremarkable as visualized. Reproductive: There is a 1.7 x 2.0 cm rim enhancing cyst with irregular wall and internal septation and may represent involuting corpus luteal cyst in the left ovary (68 series 8). Bones/joints: Mild grade 1 anterolisthesis of L4 on L5. Soft tissues: Unremarkable. IMPRESSION: 1. No acute abdominal or pelvic abnormalities. 2. No abscess or free air. Dictated and Authenticated by: Darrian Henriquez MD. Orderin Jocelynn Grey MD
[2024-08-06] MEDS: Ketorolac 15 MG/ML VIAL IVP (12:45)
--- NOTE | 2024-08-06 13:36 | SCONE_ITS ---
Date of service: 08/06/24 Time of Service: 13:36 Assessment and Plan Assessment and plan (1) Abdominal pain: Status: Acute Assessment and plan: Certainly, the history of cholelithiasis, and the presentation of symptoms today, would be consistent with acute cholecystitis. It is a little strange that her white blood cell count is completely normal, and the alk phos and other LFTs are also totally within normal limits. Although the CT scan is obviously limited with regards to diagnosis of acute cholecystitis, there really are not even any secondary signs of gallbladder inflammation or significant edema or distention. It is also interesting that she is fairly tender along the right costal margin, even a little more so than the actual soft tissue. There is no crepitus here, and I do not see anything on the imaging that would explain that either. We talked for a while about the differential diagnosis here, focusing mostly on cholecystitis, choledocholithiasis, or other complications of gallstones. My recommendation is for outpatient observation status, and repeating the labs in about 24 hours to see if there is any changes. That would also afford us the opportunity for serial exams, and to better define the character and trajectory of her discomfort. Despite my explaining all of this to her, she is really not inclined to stay in the hospital. I explained that that would also afford the opportunity to treat her pain more aggressively, but she is declining those interventions as well because of concerns for breast-feeding. Certainly, if she reconsiders this, I be more than happy to admit her for observation. Alternatively, if she does decide to leave the hospital, I would recommend at least trending her temperature over the next few days, and limiting to diet to clear liquids and avoidance of fats to see if that improves the symptomatology at all. History of Present Illness History of Present Illness Chief Complaint: Abdominal pain Narrative: Hasmukh is 29 years old. She comes to the emergency department this morning because of abdominal pain that is radiating across the mid epigastrium towards the right flank. She says it started sometime this morning. It was after she was already awake, and prior to her eating any type of breakfast. She describes the pain as sharp, crampy, stabbing, and a feeling as if somebody is burning something inside of her. There are no exacerbating or relieving factors. She did get some Toradol before my visit here, she thinks that that may have helped a little bit. She has some nausea and loss of appetite, but denies any vomiting. She tells me she had about 10-12 bowel movements this morning, and those did not significantly change the character of her pain. It sounds like that is common for her. She says often times, she has multiple bowel movements throughout the course of the day, that are often times loose, and difficult to control. She tells me she carries a diagnosis of inflammatory bowel disease. She is also known to have gallbladder sludge, or perhaps cholelithiasis. This was detected during about 1 year ago. She underwent an ultrasound that did describe cholelithiasis without evidence of acute cholecystitis. Her past surgical history includes section. Past medical history includes anxiety and overweight. She tells me she has an extensive family medical history, and she reports some diabetes, but otherwise, she cannot really cannot really recall any discrete diagnoses. Certainly nothing that would be relevant to the symptoms today. Review of systems is most significant for fevers and upper respiratory congestion over the past few days. Review of Systems Constitutional Constitutional: Reports fatigue, Reports fever(s) and Reports poor appetite Eyes Eyes: Reports system reviewed and no additional complaints, except as documented ENT Comments: Nasal congestion Cardiovascular Cardiovascular: Denies chest pain and Denies dyspnea Respiratory Respiratory: Denies chest congestion, Reports cough and Denies dyspnea Gastrointestinal Gastrointestinal: Reports abdominal pain, Denies change in stool character, Reports loose stools, Reports nausea and Denies vomiting Musculoskeletal Musculoskeletal: Reports system reviewed and no additional complaints, except as documented Integumentary/Breasts Comments: She is currently breast-feeding Endocrine Endocrine: Reports fatigue Hematologic/Lymphatic Hematologic/Lymphatic: Denies easy bleeding and Denies easy bruising PFSH All Active Problems (Updated 08/06/24 @ 13:48 by Lloyd Young MD) Abdominal pain (Acute) Vaginal discharge (Acute) Preeclampsia in period (Acute) Anxiety (Chronic 12/08/16) Polyuria (Acute) Cholelithiasis during (Acute) care and examination of lactating mother (Acute) delivery (Acute) Heart murmur (Acute) Body mass index [BMI] 32.0-32.9, adult (Acute) Medical History (Updated 08/06/24 @ 13:48 by Lloyd Young MD) Pale feces Frequent bowel movements Hx of pre-eclampsia in prior , currently Required induction of labor-magnesium sulfate infusion, IUGR. History of delivery, currently Gestational hypertension without significant proteinuria during in third trimester, antepartum History of hyperemesis gravidarum Right flank pain RUQ abdominal pain Family history of diabetes mellitus in father care, subsequent Positive urine drug screen Raynauds disease History of PCOS History of panic disorder (07/15/17) Irritable bowel syndrome Family hx-breast malignancy Cervical high risk HPV (human papillomavirus) test positive (04/28/17) Surgical History (Updated 10/06/23 @ 11:37 by Nona Dutta) History of section repair of right wrist injury Family History (Updated 11/03/23 @ 11:09 by Jes Fong CNM) Mother Breast cancer Maternal Aunt Breast cancer Anxiety Maternal Aunt Breast cancer Anxiety Maternal Aunt Anxiety Maternal Grandmother Rheumatoid arthritis Maternal Grandfather Congestive heart disease Hypertension Social History Smoking/Tobacco Use Status: Former Tobacco Use Tobacco: How many years used: 5 Smoking risk assessment performed?: Yes Alcohol Intake: never Drug use: Never Substance use type: does not use Household members: children Number of Children: 2 Education Level: college current occupation: Work on [employer]. 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 Female Reproductive History Menstrual control method: condoms History History 2 5 Para 2 Hx # Term Pregnancies 0 Multiple births 0 Hx # Pregnancies 2 Ectopic pregnancies 0 AB induced 2 Hx Number of Living Children 2 AB spontaneous 0 Past Pregnancies Del. Date GA/Weeks # Preg Succ Route Wgt Sex Labor Lgth Anesth esia Location Prov [facility] 06/26/17 35 No vaginal 4 lb 6 oz Male 24 hrs Shu e MANDY Garcia 11/12/18 36 No vaginal 7 lb Female 5 hrs 4 min Les Gar CNM 09/22/23 34 No Yes 4 lb 1 oz Male [facility] Delivery Date: 06/26/17 Last Updated by: Nona Dutta IOL preeclampsia & IUGR, required Mag., anti-hypertensive Rx for 2 mo's PP. Aly, late onset GBS @ 2-3 mo's, has autism Delivery Date: 11/12/18 Last Updated by: Nona Dutta IOL w/miso due to pre-eclampsia, no Mag needed. GBS neg. Marcela Delivery Date: 09/22/23 Last Updated by: Jes Fong CNM Preeclampsia, severe features. IOL @ [facility], emergency c/s for breech identified at 7 cms. performed under general Exam Const General: cooperative Orientation: alert, awake and oriented x3 HENMT Head: normal to inspection GI Inspection: normal to inspection and non-distended Palpation: soft, no guarding and tender (Right abdomen and mid epigastrium) Results Last Vital Signs Temp 98.3 F 08/06/24 11:07 Pulse 88 08/06/24 12:46 Resp 20 08/06/24 11:07 BP 126/85 08/06/24 12:46 Pulse Ox 100 08/06/24 12:41 Labs 08/06/24 11:32 08/06/24 11:32 Labs: Laboratory Results - last 24 hr 08/06/24 11:32 WBC 7.11 RBC 4.96 Hgb 14.0 Hct 41.3 MCV 83 MCH 28.2 MCHC 33.9 RDW 13.2 Plt Count 328 MPV 9.3 Immature Gran % 0.3 Neutrophils % 61.7 Lymphocytes % 28.1 Monocytes % 7.5 Eosinophils % 1.8 Basophils % 0.6 Nucleated RBC % 0.0 Absolute Neutrophils 4.39 Absolute Lymphocytes 2.00 Absolute Monocytes 0.53 Absolute Eosinophils 0.13 Absolute Basophils 0.04 Sodium 135 L Potassium 4.4 Chloride 102 Carbon Dioxide 25.7 Anion Gap 7.3 BUN 18 Creatinine 0.7 Est GFR (CKD-EPI 2020) 118.51 Glucose 84 Calcium 9.8 Total Bilirubin 0.5 AST 16 ALT 22 Alkaline Phosphatase 97 Total Protein 7.5 Albumin 3.8 Lipase 41 Serum HCG, Qual Negative Imaging Abdomen CT scan report/results: report reviewed and image reviewed CT scan - pelvis: report reviewed and image reviewed
== END 2024-08-06 14:00 | disposition home or self-care (01) ==
PROVIDERS: Emergency Provider Emergency Medicine; PCP Nurse Practitioner Family
DX: K80.20 Calculus of gallbladder without cholecystitis without obstruction; R10.11 Right upper quadrant pain; R10.31 Right lower quadrant pain
CPT/HCPCS: 99284; 99285; 96374; 81025; 76705; 80053; 83690; 74177; 84703; 85025; J1885; J3490

== ENCOUNTER 2024-10-21 12:07 | Emergency (ER) | payer MEDICAID, SELFPAY ==
[2024-10-21 12:10] VITALS: BP 123/84; PULSE 80; RESP 14; TEMP 36.7; O2SAT 98
--- NOTE | 2024-10-21 12:15 | DI.CT_ITS ---
Exam(s) CT HEAD WO EXAM: CT HEAD WO CLINICAL HISTORY: struck head yesterday, cont. CAMPBELL, N/V. TECHNIQUE: Imaging Protocol: Axial computed tomography images with coronal and sagittal reformatted images were created and reviewed COMPARISON: CT CT HEAD WO/W from 12/08/2022 FINDINGS: Ventricles and Extra axial spaces: Normal in size and morphology for the patient's age. Hemorrhage: None. Cerebral parenchyma: No evidence of acute infarct or mass. Midline shift: None. Brainstem/Cerebellum: Normal. Bones: No skull or facial fractures. Visualized Paranasal sinuses: mucosal thickening of ethmoid and right sphenoid sinuses. Mastoids: Clear. Soft Tissues: Unremarkable. ORBITS: Unremarkable. PITUITARY: Not enlarged. IMPRESSION: No acute intracranial process. RADIATION DOSE DELIVERED: 853.71mGy.cm Total DLP DATA REPOSITORY: All CT scans at this facility are submitted to the National Radiology Data Registry (NRDR) Dose Index Registry (DIR) with the [employer] (ACR). RADIATION OPTIMIZATION: All CT scans at this facility use at least one of these dose optimization techniques: automated exposure control; mA and/or kV adjustment per patient size (includes targeted exams where dose is matched to clinical indication); or iterative reconstruction.
--- NOTE | 2024-10-21 12:18 | ED.GENADUL_ITS ---
Discharge Plan Disposition Patient Disposition: Home Condition: Good Discharge Details Clinical Impression: Concussion Primary Care Provider: Jeniffer Angulo ED Provider: Qiana Prather Home Meds and New Rx's Prescriptions: Continued acetaminophen [Tylenol] 325 MG tablet 1,000 mg PO PRN Discharge Instructions Instructions: Head injury in adults, Post-Concussion Syndrome ED Additional Instructions: As we discussed, your exam and imaging are reassuring here today with no evidence to suggest intracranial hemorrhage. However, I remain concerned for concussion, particularly given your history of prior concussions. Please continue to encourage hydration. Please continue to encourage brain rest. Please try to avoid screens. Try to avoid things that seem to worsen your symptoms is much as possible and try to get some sleep. Please follow-up with primary care next week for reevaluation. You may use Tylenol and/or ibuprofen as needed for discomfort. If you develop any new or worsening symptoms please seek care urgently once again. Referrals: Jeniffer Angulo [Primary Care Provider, Medicine] Discharge Data Discharge Date/Time-TO BE ENTERED AT DEPARTURE: 10/21/24 13:28 [facility] General Date/Time Provider Initiated Documentation: 10/21/24 12:17 . Limitations to Documentation: no limitations . Information obtained by: patient and RN notes reviewed . History of Present Illness 29 year old F presents to the emergency department with the chief complaint of Head injury, headache, described as severe and similar to prior episodes, and is localized to the head. Patient started experiencing this day(s) (1) and it has been constant. No relieving factors improve symptom(s), Other factors that worsen symptoms (Endorses photophobia and phonophobia) . Patient notes headaches, loss of appetite and nausea/vomiting; denies confusion, chest pain, seizure, shortness of breath, syncope and weakness. Patient did receive the following treatments prior to arrival, none Related Data Home Medications ?Medication ?Instructions ?Recorded ?Confirmed acetaminophen 325 mg tablet 1,000 mg PO PRN 06/24/17 0 10/21/24 (Tylenol) Allergies Allergy/AdvReac Type Severity Reaction Status Date / Time trimethobenzamide Allergy Severe dystonic Verified 10/21/24 12:13 reaction codeine Allergy Unknown Can't Verified 10/21/24 12:13 breath metoclopramide (From Reglan) AdvReac Severe Akathesia Verified 10/21/24 12:13 promethazine (From Phenergan) AdvReac Severe Agitation Verified 10/21/24 12:13 General Stated Complaint: HeadInjury BHUPENDRA: 3 Review of Systems Constitutional Constitutional: Reports as per HPI, Reports fatigue, Denies fever(s), Reports headache(s) and Denies weakness Eyes Eyes: Reports as per HPI, Denies blurry vision, Denies change in vision and Reports photophobia ENT Ears, Nose, Mouth, and Throat: Denies vertigo, Reports headache(s) and Denies neck pain Cardiovascular Cardiovascular: Reports as per HPI, Denies chest pain, Denies lightheadedness, Denies radiating jaw, neck or arm pain and Denies dyspnea Respiratory Respiratory: Reports as per HPI, Denies cough and Denies dyspnea Gastrointestinal Gastrointestinal: Reports as per HPI, Denies abdominal pain and Denies change in bowel habits Musculoskeletal Musculoskeletal: Reports as per HPI, Denies back pain, Denies neck pain and Denies numbness Integumentary/Breasts Skin/Breast: Reports as per HPI and Denies rash Neurologic Neurologic: Reports as per HPI, Denies abnormal movements, Denies abnormal speech, Denies confusion, Denies vertigo, Reports headache(s), Denies localized weakness, Denies numbness, Denies sensory deficit and Denies weakness Psychiatric Psychiatric: Denies confusion Endocrine Endocrine: Reports fatigue Exam Const General: cooperative, healthy appearing, uncomfortable, no acute distress, well developed and well groomed Nutritional Appearance: average body habitus and well nourished Orientation: alert, awake and oriented x3 HENMT Head: normal to inspection, no palpable skull fracture, normocephalic and atrau matic Ears: hearing grossly normal bilaterally and external ears normal General nose exam: external nose normal Mouth: oral mucosae normal and moist mucous membranes Throat: posterior oropharynx normal Eyes General: appearance normal, both eyes and all related structures Alignment and Position: alignment normal Periorbital: periorbital findings normal Eyelids: eyelids normal Sclera: sclerae normal Cornea: corneas normal Pupils: PERRL EOM: EOM intact bilaterally Neck Neck: normal visual inspection, full ROM, no lymphadenopathy and no meningeal signs Resp Effort & Inspection: normal respiratory effort, able to speak in complete sentences and no respiratory distress Auscultation: clear to auscultation bilaterally, no rales, no rhonchi and no wheezes Cardio Rate: regular rate Rhythm: regular rhythm Heart Sounds: S1 normal and S2 normal Back/Spine/Pelvis Cervical Spine: normal cervical lordosis and cervical ROM normal Skin General skin exam: no rashes or lesions noted Neuro General: patient alert, patient awake and patient oriented x3 Cranial Nerves: CN's II-XI intact bilaterally Cognition: normal cognition Speech: speech normal Gait: normal gait Motor: muscle tone normal throughout, strength 5/5 throughout, no pronator drift, no movement abnormalities noted and no fasciculations Sensory Exam: no sensory deficits noted Course Vital Signs Vital signs: Vital Signs Temperature 36.7 C 10/21/24 12:10 Pulse 80 10/21/24 12:10 Respiratory Rate 14 10/21/24 12:10 Blood Pressure 123/84 10/21/24 12:10 Pulse Oximetry 98 10/21/24 12:10 Temperature 36.7 C 10/21/24 12:10 Temperature Source Oral 10/21/24 12:10 Pulse 80 10/21/24 12:10 Respiratory Rate 14 10/21/24 12:10 Blood Pressure 123/84 10/21/24 12:10 Blood Pressure Position Sitting 10/21/24 12:10 Pulse Oximetry 98 10/21/24 12:10 Oxygen Delivery Method Room Air 10/21/24 12:10 Oxygen Flow Rate 0 10/21/24 12:10 Medical Decision Making Patient is a pleasant 29-year-old female presented with chief complaint of head injury. She reports that yesterday she was trying to get her 13-month out of the car when another one of her children was standing behind her. She states that when she stepped backwards she tripped over her child and fell in an effort to protect the other children struck the left side of her head. She denies any loss of consciousness. States that with her children also being injured in the fall, she immediately got up and attended to them. Reports that she did have some left wrist discomfort as well as general left side discomfort but that those things that seem to have subsided. In the middle of the night however, she awoke with severe headache. She has also had some nausea and vomiting. Denies any focal weakness or sensory deficits. Has been feeling generally unwell and lightheaded. Patient does report that she had a severe head injury several years ago requiring her to work with speech therapy, physical therapy and Occupational Therapy forced several months. On exam, patient appears uncomfortable. She is wearing dark sunglasses in good he has some photophobia. She was holding emesis bag when I first came in but does otherwise appear well-hydrated. Her neuroexam is intact, I do not note any deficits currently. No palpable skull fracture or evidence of basilar skull fracture. No c-spine tenderness. Patient declines any analgesics, antiemetics. States that she is continuing to breast-feed her 13-month old and would like to hold off on any type of medication if possible regardless of route of administra tion or medication. Is agreeable to a CT scan for evaluation of possible intracranial hemorrhage after a fall. Alternatively, patient may be suffering from recurrent concussion and will likely need to have supportive care with PT given her history once again. CT reviewed by radiologist with no acute abnormalities noted. Right thumb laceration patient has a 1 cm linear laceration near the discussed his findings with the patient. She continues to appear quite uncomfortable. Is also giving some phonophobia. Despite the reassuring imaging, I remain concerned for significant concussion, particularly given her past head injuries. Patient continues to decline any analgesics, antiemetics and would prefer to go home and rest. She feels that she is able to stay suitably hydrated and will co ntinue to encourage this. Strict return precautions were discussed. I also encouraged close follow-up with primary care. All questions and concerns were addressed and she is in agreement with this plan. Dictation completed using [employer] dictation software. Please excuse any errors or resident surgeon anomalies that may remain. PFSH All Active Problems (Updated 10/21/24 @ 13:22 by ABEL Brower) Concussion (Acute) Vaginal discharge (Acute) Preeclampsia in period (Acute) Anxiety (Chronic 12/08/16) Polyuria (Acute) Cholelithiasis during (Acute) care and examination of lactating mother (Acute) delivery (Acute) Heart murmur (Acute) Body mass index [BMI] 32.0-32.9, adult (Acute) Medical History (Updated 10/21/24 @ 13:22 by ABEL Brower) Pale feces Frequent bowel movements Hx of pre-eclampsia in prior , currently Required induction of labor-magnesium sulfate infusion, IUGR. History of delivery, currently Gestational hypertension without significant proteinuria during in th ird trimester, antepartum History of hyperemesis gravidarum Right flank pain RUQ abdominal pain Family history of diabetes mellitus in father care, subsequent Positive urine drug screen Raynauds disease History of PCOS History of panic disorder (07/15/17) Irritable bowel syndrome Family hx-breast malignancy Cervical high risk HPV (human papillomavirus) test positive (04/28/17) Surgical History (Updated 10/06/23 @ 11:37 by Nona Dutta) History of section repair of right wrist injury Family History (Updated 11/03/23 @ 11:09 by Jes Fong CNM) Mother Breast cancer Maternal Aunt Breast cancer Anxiety Maternal Aunt Breast cancer Anxiety Maternal Aunt Anxiety Maternal Grandmother Rheumatoid arthritis Maternal Grandfather Congestive heart disease Hypertension Social History Smoking/Tobacco Use Status: Former Tobacco Use Tobacco: How many years used: 5 Smoking risk assessment performed?: Yes Alcohol Intake: never Drug use: Never Substance use type: does not use Household members: children Number of Children: 2 Education Level: college current occupation: Work on 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 Female Reproductive History Menstrual control method: condoms History History 5 Para 2 Hx # Term Pregnancies 0 Multiple births 0 Hx # Pregnancies 2 Ectopic pregnancies 0 AB induced 2 Hx Number of Living Children 2 AB spontaneous 0 Past Pregnancies Del. Date GA/Weeks # Preg Succ Route Wgt Sex Labor Lgth Anesth esia Location Prov [facility] 06/26/17 35 No vaginal 1984.467 g Male 24 hrs Nicole jong Garcia CNM 11/12/18 36 No vaginal 3175.147 g Female 5 hrs 4 min Perri Dutta CNM 09/22/23 34 No Yes 1842.719 g Male [facility] Delivery Date: 06/26/17 Last Updated by: Nona Dutta IOL preeclampsia & IUGR, required Mag., anti-hypertensive Rx for 2 mo's PP. Aly, late onset GBS @ 2-3 mo's, has autism Delivery Date: 11/12/18 Last Updated by: Nona Dutta IOL w/miso due to pre-eclampsia, no Mag needed. GBS neg. Marcela Delivery Date: 09/22/23 Last Updated by: Jes Fong CNM Preeclampsia, severe features. IOL @ [facility], emergency c/s for breech identified at 7 cms. performed under general
== END 2024-10-21 13:28 | disposition home or self-care (01) ==
PROVIDERS: Emergency Provider Physician Assistant; PCP Nurse Practitioner Family
DX: S06.0X0A Concussion without loss of consciousness, initial encounter (principal); W01.0XXA Fall on same level from slipping, tripping and stumbling without subsequent striking against object, initial encounter
CPT/HCPCS: 99284; 99283; 70450

== ENCOUNTER 2025-01-11 00:02 | Outpatient (CLI) | payer MEDICAID, SELFPAY ==
[2025-01-11 13:53] LABS: Abs Immature Grans 0.02 10^3/uL (0.0-0.06); HCT 37.3 % (36.0-46.0); HGB 12.8 g/dL (11.2-15.7); Immature Grans % 0.2 %; MCH 28.5 pg (27.0-33.0); MCHC 34.3 % (32.0-36.0); MCV 83 fL (80-95); MPV 9.4 fL (8.0-11.0); Platelet Count 288 10^3/uL (130-400); RBC 4.49 10^6/uL (3.93-5.22); RDW 13.2 % (11.7-14.6); RDW-SD 39.8 fL; WBC 8.30 10^3/uL (4.4-10.8)
[2025-01-11 14:50] LABS: ALT 18 U/L (14-59); AST 10 U/L (15-37); Albumin 3.1 g/dL (3.4-5.0); Alkaline Phosphatase 71 U/L (46-116); Anion Gap 11.3 mmol/L (3-11); BUN 9 mg/dL (7-18); Bilirubin, Total 0.2 mg/dL (0.2-1.0); CO2 21.7 mmol/L (21.0-32.0); Calcium 8.7 mg/dL (8.5-10.1); Chloride 104 mmol/L (98-107); Estimated GFR 135.62 (mL/min/1.73m2); Glucose 118 mg/dL (74-106); Potassium 4.0 mmol/L (3.5-5.1); Sodium 137 mmol/L (136-145); TSH (W/Ref FT4) 0.01 uIU/mL (0.36-3.74); Total Protein 6.4 g/dL (6.4-8.2)
[2025-01-11 14:59] LABS: Hemoglobin A1C 5.3 % (<5.7)
[2025-01-12 10:06] LABS: Hepatitis C Ab w Rflx HCV PCR Negative (Negative)
[2025-01-12 10:22] LABS: HIV-1/2 Ag & Ab Screen Negative (Negative)
[2025-01-12 10:52] LABS: Rubella IgG Ab (UVM) Positive (See Note)
[2025-01-15 11:58] LABS: Syphilis IgG w/Reflex Nonreactive (Nonreactive)
== END 2025-01-11 00:03 | disposition home or self-care (01) ==
PROVIDERS: PCP Nurse Practitioner Family; Visit Provider Advanced Practice Midwife
DX: Z34.91 Encounter for supervision of normal pregnancy, unspecified, first trimester (principal)
CPT/HCPCS: 36415; 80053; 86787; 86803; 86850; 86900; 86901; 87340; 87389; 83036; 84439; 84443; 85025; 86762; 86777; 86778; 86780

== ENCOUNTER 2025-01-11 00:08 | Outpatient (CLI) | payer MEDICAID, SELFPAY ==
--- NOTE | 2025-01-11 07:00 | DI.US_ITS ---
Exam(s) US OB F/U FACIAL/LVOT/RVOT EXAM: US OB F/U FACIAL/LVOT/RVOT CLINICAL HISTORY: dating,z34.90. TECHNIQUE: Transabdominal obstetrical ultrasound performed. COMPARISON: US US OB 2-3 TRIMESTER from 06/15/2023 US POCUS EXAM from 12/12/2024 FINDINGS: Number of fetuses: 1 position: VARIED Placental location: POSTERIOR No evidence of previa. BIOMETRIC DATA: BPD: 2.48cm, 14weeks 2days HC: 9.14cm, 14weeks 1day AC: 8.02cm, 14weeks 3days FL: 1.33cm, 13weeks 6days EFW: 91.22g, 0.2lb, 94.4% Composite Age: 14weeks 1day GEORGETTE: 07/11/2025 Heart Rate: 167bpm Amniotic fluid: . Visually, amount of fluid is within normal limits. IMPRESSION: 1. Single live intrauterine gestation as above. 2. Estimated gestational age is 14 weeks 1 day. DATA REPOSITORY:
== END 2025-01-11 00:28 ==
LOC: DI 00:09
PROVIDERS: PCP Nurse Practitioner Family; Visit Provider Advanced Practice Midwife
DX: Z34.92 Encounter for supervision of normal pregnancy, unspecified, second trimester (principal); Z3A.14 14 weeks gestation of pregnancy
CPT/HCPCS: 76815

== ENCOUNTER 2025-01-11 10:30 | Outpatient (REF) | payer MEDICAID, SELFPAY ==
[2025-01-11 14:24] LABS: PROTEIN 7.5 mg/dL; Prot/Crea Ur Ratio 0.08
[2025-01-12 12:50] LABS: Chlamydia Result Negative (Negative); GC Result Negative (Negative)
== END 2025-01-11 10:31 | disposition home or self-care (01) ==
LOC: LBN 10:30
PROVIDERS: PCP Nurse Practitioner Family; Visit Provider Advanced Practice Midwife
DX: Z34.91 Encounter for supervision of normal pregnancy, unspecified, first trimester (principal)
CPT/HCPCS: 87491; 87591; 82565; 84156; 87086

== ENCOUNTER 2025-02-06 09:57 | Outpatient (CLI) | payer MEDICAID, SELFPAY ==
[2025-02-06 10:21] LABS: TSH (W/Ref FT4) 0.11 uIU/mL (0.36-3.74)
== END 2025-02-06 09:58 | disposition home or self-care (01) ==
LOC: LBO 09:57
PROVIDERS: PCP Nurse Practitioner Family; Visit Provider Advanced Practice Midwife
DX: R79.89 Other specified abnormal findings of blood chemistry (principal); Z34.92 Encounter for supervision of normal pregnancy, unspecified, second trimester; Z3A.17 17 weeks gestation of pregnancy
CPT/HCPCS: 36415; 84439; 84443

== ENCOUNTER → 2025-03-09 01:00 | Outpatient (CLI) | payer MEDICAID, SELFPAY ==
--- NOTE | 2025-03-09 07:15 | DI.US_ITS ---
Exam(s) US OB 2-3 TRIMESTER EXAM: US OB 2-3 TRIMESTER CLINICAL HISTORY: ,f/u survey,z36.2. TECHNIQUE: Transabdominal obstetrical ultrasound performed. COMPARISON: US POCUS EXAM from 12/12/2024 US US OB F/U FACIAL/LVOT/RVOT from 01/11/2025 FINDINGS: Number of fetuses: 1 position: VARIED Placental location: POSTERIOR No evidence of previa. BIOMETRIC DATA: BPD: 5.12cm mm, 21weeks 4days weeks HC: 19.24cm mm, 21weeks 3days weeks AC: 16.44cm mm, 21weeks 3days weeks FL: 3.57cm mm, 21weeks 2days weeks Cisterna magna: 5.1mm mm Cerebellum: 2.04cm cm Lateral ventricle: Mm EFW: 422.52g grams, 10.6% % Composite Age: 21weeks 3days weeks GEORGETTE: 07/17/2025 Heart Rate: 151bpm BPM Amniotic fluid: Amount of fluid is visually within normal limits. ANATOMICAL SURVEY: Four-chambered heart: Unremarkable. LVOT: Not well seen RVOT: Not well seen Left-sided stomach: Unremarkable. urinary bladder: Unremarkable. Bilateral kidneys: Unremarkable. Three-vessel cord: Unremarkable. Cord insertion: Unremarkable. Posterior fossa:Unremarkable. ventricles: Unremarkable. nose: Unremarkable. lips: Unremarkable. palate: Unremarkable. spine: Unremarkable. Two arms and two legs: Unremarkable. IMPRESSION: 1. Single live intrauterine gestation with composite age of 21 weeks 3 days. Estimated weight is 11 percent 2. Normal anatomic survey. LVOT in RV OT were not well seen. Patient is scheduled to return for additional imaging 15 March 2025 DATA REPOSITORY:
== END ==
LOC: DI 01:00
PROVIDERS: PCP Nurse Practitioner Family; Visit Provider Advanced Practice Midwife
DX: Z34.92 Encounter for supervision of normal pregnancy, unspecified, second trimester (principal); Z36.2 Encounter for other antenatal screening follow-up; Z3A.22 22 weeks gestation of pregnancy
CPT/HCPCS: 76805

== ENCOUNTER 2025-03-09 14:08 | Outpatient (CLI) | payer MEDICAID, SELFPAY ==
[2025-03-09 16:13] LABS: TSH (W/Ref FT4) 0.74 uIU/mL (0.55-4.78)
== END 2025-03-09 14:09 | disposition home or self-care (01) ==
LOC: LBO 14:08
PROVIDERS: PCP Nurse Practitioner Family; Visit Provider Advanced Practice Midwife
DX: R79.89 Other specified abnormal findings of blood chemistry (principal)
CPT/HCPCS: 36415; 84443

== ENCOUNTER → 2025-03-15 00:09 | Outpatient (CLI) | payer MEDICAID, SELFPAY ==
--- NOTE | 2025-03-15 | DI.US_ITS ---
Exam(s) US OB F/U FACIAL/LVOT/RVOT EXAM: US OB F/U FACIAL/LVOT/RVOT CLINICAL HISTORY: F/U SURVEY, RVOT/LVOT. COMPARISON: US US OB 2-3 TRIMESTER from 03/09/2025 TECHNIQUE: Transabdominal obstetrical ultrasound performed. FINDINGS: Sonographic images demonstrate a single intrauterine gestation. Heart Rate: 154bpm Number of fetuses: 1 position: TRANS RIGHT Placental location: POSTERIOR No evidence of previa. nose/lips: Unremarkable. Right and left ventricular outflow tracts were visualized on the current exam. No abnormalities are identified. Amniotic fluid index: Amount of fluid is within normal limits. IMPRESSION: Right and left ventricular outflow tracts were visualized on the current study. DATA REPOSITORY:
== END ==
LOC: DI 00:09
PROVIDERS: PCP Nurse Practitioner Family; Visit Provider Advanced Practice Midwife
DX: O09.293 Supervision of pregnancy with other poor reproductive or obstetric history, third trimester (principal)
CPT/HCPCS: 76815